=== PATIENT | male | born 1970 | race Caucasian/White ===

== ENCOUNTER 2016-05-18 20:29 | Emergency (ER) | payer BC ==
[2016-05-18 20:40] VITALS: BP 188/102; BMI 35.5
[2016-05-18] MEDS ORDERED: ZOFRAN INJ 4 MG VIAL IVP ONE (21:27)
[2016-05-18] MEDS ORDERED: TORADOL 30 MG VIAL IVP STA (21:27)
--- NOTE | 2016-05-18 21:32 | DR.GENAD ---
HPI - PCP Primary Care Physician: meenakshi - Complaint/Symptoms Chief Complaint Doctors Comments: Patient complains of diffuse abdominal pain, cramping and no recent bowel movement. States he is having the same thing he had four months ago when they sent him to [place]. States he was transferred to [place] and saw Dr. Stefano Guzman ([phone]) and he said if it happen againg to call him and he will have him transferred so he could do surgery. states the pain is dull and cramping with the pain 9 of 10. Chief Complaint:: blockage in stomach, vomiting, had very small bm this am pain in abdomen abdomen distended Self Treatment fo Chief Complaint: miralax this am - Nurses notes reviewed Nurses Notes Review: Yes - Source History Provided: Patient - Mode of Arrival Mode of Arrival: Ambulatory - Timing Onset of Chief Complaint: 05/17/16 Came on: Gradually - Duration Duration: Constant How lon Duration: Days - Location Location: diffuse abdominal pain; periumbilical pain - Severity Severity: Moderate - Modifying Factors Worsens:: nothing Improves:: nothing PMH - PMH Past Medical History: Yes Past Medical History: Hypertension Past Surgical History: Yes Surgical History: Abdominal Surgery, Appendectomy, Cholecystectomy, Ortho Surgery Past Surgical History Comment: sinus surgery, nerve block on back - Family History History of Family Medical Conditions: Yes Family Medical History: Cancer, [place], Hypertension - Social History Does patient currently use any type of tobacco product: No Have you used tobacco products in the last 12 months: No Type of Tobacco Use: None Does any household member use tobacco: No Alcohol Use: Rarely Do you use any recreational Drugs:: No Lives With: Alone Lives Where: Home - infectious screening In the last 2 months have you had wt loss of >10#?: NO Have you had fever, night sweats or hemotysis?: No Have you traveled outside the country in the last 6 months?: No Isolation: Standard ROS - Review of Systems Constitutional: No Symptoms Reported, Loss of Appetite Eyes: No Symptoms Reported. negative: See HPI, Eye Pain, Blurred Vision, Tearing, Discharge, Photophobia, Diplopia, Other ENTM: No Symptoms Reported. negative: See HPI, Ear Pain, Ear Discharge, Pulling on Ears, Hearing Loss, Nose Pain, Nose Discharge, Epistaxis, Nose Congestion, Mouth Pain, Mouth Swelling, Loose Teeth, Drooling, Throat Pain, Throat Swelling, Ear Foreign Body Respiratoy: No Symptoms Reported. negative: See HPI, Productive Cough, Non- Productive Cough, Moist Cough, Dry Cough, Hacking Cough, Barking Cough, Brassy Cough, Orthopnea, Short of Breath, Stridor, Wheezing, Hemoptysis, Other Cardiovascular: No Symptoms Reported. negative: See HPI, Chest Pain, Edema, Palpitations, Syncope, Cyanosis, Skin Mottling, Other Gastrointestinal/Abdominal: Abdominal Pain, Constipation, Nausea, Vomiting. negative: No Symptoms Reported, See HPI, Diarrhea, Food Intolerance, Other Genitourinary: No Symptoms Reported. negative: See HPI, Discharge, Dysuria, Frequency, Hematuria, Pain, Bleeding, Other Neurological: No Symptoms Reported. negative: See HPI, Anxiety, Depressed, Emotional Problems, Headache, Numbness, Paresthesia, Pre-existing Deficit, Seizure, Tingling, Tremors, Weakness, Dizziness, Problems Walking, Speech Problem, Other Musculoskeletal: No Symptoms Reported Integumentary: No Symptoms Reported Hematologic/Lymphatic: No Symptoms Reported. negative: See HPI, Anemia, Blood Clots, Easy Bleeding, Easy Bruising, Swollen Glands, Lymphadenopathy, Other Endocrine: No Symptoms Reported Psychiatric: No Symptoms Reported PE - Vital Signs Vitals: Temperature 97.7 F Pulse Rate 102 Respiratory Rate 24 Blood Pressure [Right Arm] 123/85 Blood Pressure [Left Arm] 157/85 Blood Pressure 188/102 O2 Sat by Pulse Oximetry 96 - General Limitations: No Limitations General Appearance: Alert, In Distress (moderate) - Head Head Exam: Normal Inspection, Atraumatic, Normocephalic - Eyes Eye exam: Normal Appearance, PERRL, EOMI. negative: Scleral Icterus, Conjunctival Injection, Nystagmus, Miosis, Mydrasis, Periorbital Swelling, Periorbital Tenderness, Other - ENT ENT Exam: Normal Exam, Normal Oropharynx, Normal External Ear Exam, Mucous Membranes Moist, TM's Normal Bilaterally External Ear Exam: Normal External Inspection TM/Canal Exam: Bilateral Normal Nose Exam: Normal Nose Exam Mouth Exam: Normal Inspection. negative: Drooling, Trismus, Lip Swelling, Tongue Elevation, Tongue Swelling, Laceration, Other Throat Exam: Normal Inspection. negative: Tonsillar Erythema, Tonsillomegaly, Tonsillar Exudate, R Peritonsillar Mass, L Peritonsillar Mass, Muffled Voice, Other - Neck Neck Exam: Normal Inspection, Full ROM, Trachea Midline. negative: Tenderness, Meningismus, Lymphadenopathy, Thyromegaly, Other - Chest Chest Inspection: Normal Inspection, Symmetric Chest Wall Rise. negative: Tenderness, Rash, Abscess, Other - Respiratory Respiratory Exam: Normal Lung Sounds Bilat. negative: Accessory Muscle Use, Chest Wall Tenderness, Prolonged Expiratory Phase, Respiratory Distress, Stridor , Other Respiratory Exam: Bilateral Clear to Auscultation - Cardiovascular Cardiovascular Exam: Regular Rate, Normal Rhythm, Normal Heart Sounds. negative : Bradycardia, Tachycardia, Irregular Rhythm, Systolic Murmur, Diastolic Murmur , Rubs, Gallop, Clicks, JVD, +S1, +S2, +S3, +S4, Other - Abdominal Exam Abdominal Exam: Normal Inspection, Normal Bowel Sounds, Soft, Distention, Tenderness, Guarding, Hyperactive Bowel Sounds. negative: Rebound, Rigidity, Dimnished Bowel Sounds, Hypoactive Bowel Sounds, Organomegaly, Trauma, Incision , Ascites, Mass, Bruit, Pulsatile Mass, Hernia, Other Abdominal Tenderness: RUQ, RLQ, Epigastrium, Suprapubic, Moderate - Extremities Extremities Exam: Normal Inspection, Full ROM, Normal Capillary Refill. negative: Tenderness, Edema, Joint Swelling, Calf Tenderness, Other - Back Back Exam: Normal Inspection, Full ROM. negative: Tenderness, (R) CVA Tenderness, (L) CVA Tenderness, Muscle Spasm, Paraspinal Tenderness, Vertebral Tenderness, Rashes, (R) Sciatic Notch Tenderness, (L) Sciatic Notch Tendern, (R ) Straight Leg Raise, (L) Straight Leg Raise, Other - Neurologic Neurological Exam: Alert, Oriented X3, CN II-XII Intact, Reflexes Normal. negative: Normal Gait (gait not tested) - Psychiatric Psychiatric Exam: Normal Affect, Normal Mood. negative: Depressed, Agitated, Anxious, Flat Affect, Manic, Homicidal Ideation, Suicidal Ideation, Other - Skin Skin Exam: Warm, Dry, Intact, Normal Color ROR - Labs Reviewed Laboratory Results Reviewed?: Yes (all labs and x-ray results reviewed and discussed with patient) Result Diagrams: 05/18/16 21:30 05/18/16 21:30 Laboratory: WBC 6.7 X10^3/uL (3.6-10.0) 05/18/16 21:30 RBC 5.17 X10^6/uL (4.7-6.0) 05/18/16 21:30 Hgb 15.4 g/dL (13.5-18.0) 05/18/16 21:30 Hct 43.7 % (42.0-54.0) 05/18/16 21:30 MCV 84.4 fL (80.0-100.0) 05/18/16 21:30 MCH 29.8 pg (27.0-34.0) 05/18/16 21: MCHC 35.3 g/dL (33.0-35.0) H 05/18/16 21:30 RDW 13.7 % (11.6-16.5) 05/18/16:30 Plt Count 211 X10^3/uL (150.0-450.0) 05/18/16 21:30 MPV 7.9 fL (7.4-11.0) 05/18/16 21: Neut % 68.0 % (42.0-75.0) 05/18/16 21: Lymph % 20.7 % (21.0-51.0) L 05/18/16 21:30 [place] % 8.4 % (0.0-13.0) 05/18/16 21:30 Eos % 2.4 % (0.9-2.9) 05/18/16 21:30 Baso % 0.5 % (0.2-1.0) 05/18/16 21:30 Neut # 4.5 x10^3/uL (2.2-4.8) 05/18/16 21:30 Lymph # 1.4 X10^3/uL (1.3-2.9) 05/18/16 21:30 [place] # 0.6 x10^3/uL (0.3-0.8) 05/18/16 21:30 Eos # 0.2 x10^3/uL (0.0-0.2) 05/18/16 21:30 Baso # 0.0 X10^3/uL (0.0-0.1) 05/18/16 21:30 Absolute Nucleated RBC 0.0 /100WBC 05/18/16 21:30 Sodium 145 mmol/L (136-145) 05/18/16 21:30 Corrected Sodium 145 mmol/L (136-145) 05/18/16 21:30 Potassium 3.6 mmol/L (3.5-5.1) 05/18/16 21:30 Chloride 108 mmol/L (98-107) H 05/18/16 21:30 Carbon Dioxide 28.6 mmol/L (21-32) 05/18/16 21:30 BUN 9 mg/dL (7-18) 05/18/16 21:30 Creatinine 1.00 mg/dL (0.70-1.30) 05/18/16 21:30 Est GFR (MDRD) Af Amer > 60 (>60) 05/18/16 21:30 Est GFR (MDRD) Non-Af > 60 (>60) 05/18/16 21:30 Glucose 115 mg/dL (65-99) H 05/18/16 21:30 Calcium 8.4 mg/dL (8.5-10.1) L 05/18/16 21:30 Corrected Calcium TNP 05/18/16 21:30 Total Bilirubin 0.60 mg/dL (0.2-1.0) 05/18/16 21:30 AST 20 Units/L (15-37) 05/18/16 21:30 ALT 33 Units/L (12-78) 05/18/16 21:30 Alkaline Phosphatase 83 Units/L (46-116) 05/18/16 21:30 Creatine Kinase 79 Units/L (39-308) 05/18/16 21:30 CK-MB (CK-2) < 1.0 ng/mL (0-4.0) 05/18/16 21:30 CK/CKMB % Calc 1.3 % (<4) 05/18/16 21:30 Troponin I < 0.02 ng/mL (0-1.5) 05/18/16 21:30 Total Protein 6.7 g/dL (6.4-8.2) 05/18/16 21:30 Albumin 3.8 g/dL (3.4-5.0) 05/18/16 21:30 Globulin 2.9 g/dL (2.5-4.5) 05/18/16 21:30 Albumin/Globulin Ratio 1.3 Ratio (1.1-2.1) 05/18/16 21:30 Amylase 27 Units/L (25-115) 05/18/16 21:30 Lipase 103 Units/L (73-393) 05/18/16 21:30 Specimen Type Clean catch urine 05/18/16 23:06 Urine Color Yellow (YELLOW) 05/18/16 23:06 Urine Appearance Clear (CLEAR) 05/18/16 23:06 Urine pH 6.0 (5.0 - 8.0) 05/18/16 23:06 Ur Specific [place] 1.020 (1.000-1.030) 05/18/16 23:06 Urine Protein 1+ (NEGATIVE) 05/18/16 23:06 Urine Glucose (UA) Negative (NEGATIVE) 05/18/16 23:06 Urine Ketones Negative (NEGATIVE) 05/18/16 23:06 Urine Occult Blood Negative (NEGATIVE) 05/18/16 23:06 Urine Nitrite Negative (NEGATIVE) 05/18/16 23:06 Urine Bilirubin Negative (NEGATIVE) 05/18/16 23:06 Urine Urobilinogen 2+ (NORMAL) 05/18/16 23:06 Ur Leukocyte Esterase Negative (NEGATIVE) 05/18/16 23:06 Urine RBC 0-3 /HPF (NEGATIVE) 05/18/16 23:06 Urine WBC 0-3 /HPF (NEGATIVE) 05/18/16 23:06 Ur Squamous Epith Cells Rare /HPF (NEGATIVE) 05/18/16 23:06 Amorphous Sediment Trace /HPF (NEGATIVE) 05/18/16 23:06 Urine Bacteria Negative /HPF (NEGATIVE) 05/18/16 23:06 Urine Mucus Few /HPF (NEGATIVE) 05/18/16 23:06 Ur Culture Indicated? No/not indicated 05/18/16 23:06 - XRAY XRAY Interpreted by: Radiologist (CT abdomen: No acute inflammatory process identified.) - Diagnosis Discharge Problem: Hyperglycemia, Constipation Abdominal pain Qualifiers: Abdominal location: generalized Qualified Code(s): R10.84 - Generalized abdominal pain Inguinal hernia Qualifiers: Laterality: unilateral - Discharge Plan Disposition: 01 HOME, SELF-CARE Condition: Stable - Follow ups/Referrals Follow ups/Referrals: TONY DEAL [Primary Care Provider] - 3 days - Instructions Instructions: Abdominal Pain, Adult, [id number], Inguinal Hernia, Adult, Constipation, Adult Additional Instructions: Patient informed of the CT scanner being broken for a while and the findings of his CT scan of his abdomen with no signs of bowel obstruction. Increased stool noted in the colon. Patient states he is taking MariLax and he has Dulculax that he will take when he gets home.
[2016-05-18] MEDS ORDERED: TORADOL 30 MG VIAL ONE (21:47)
[2016-05-18] MEDS ORDERED: NS 1000 ML 1,000 ML ONE (21:47)
[2016-05-18] MEDS ORDERED: ZOFRAN INJ 4 MG VIAL ONE (21:47)
[2016-05-18 21:56] LABS: BASOPHILS % (AUTO) 0.5 % (0.2-1.0); EOSINOPHILS # (AUTO) 0.2 x10^3/uL (0.0-0.2); EOSINOPHILS % (AUTO) 2.4 % (0.9-2.9); HEMATOCRIT 43.7 % (42.0-54.0); HEMOGLOBIN 15.4 g/dL (13.5-18.0); LYMPHOCYTES # (AUTO) 1.4 X10^3/uL (1.3-2.9); LYMPHOCYTES % (AUTO) 20.7 % (21.0-51.0); MEAN CORPUSCULAR HEMOGLOBIN 29.8 pg (27.0-34.0); MEAN CORPUSCULAR HGB CONC 35.3 g/dL (33.0-35.0); MEAN CORPUSCULAR VOLUME 84.4 fL (80.0-100.0); MEAN PLATELET VOLUME 7.9 fL (7.4-11.0); MONOCYTES # (AUTO) 0.6 x10^3/uL (0.3-0.8); MONOCYTES % (AUTO) 8.4 % (0.0-13.0); NEUTROPHILS # (AUTO) 4.5 x10^3/uL (2.2-4.8); PLATELET COUNT 211 X10^3/uL (150.0-450.0); RED BLOOD COUNT 5.17 X10^6/uL (4.7-6.0); RED CELL DISTRIBUTION WIDTH 13.7 % (11.6-16.5); WHITE BLOOD COUNT 6.7 X10^3/uL (3.6-10.0)
[2016-05-18 22:00] LABS: ALANINE AMINOTRANSFERASE 33 Units/L (12-78); ALBUMIN 3.8 g/dL (3.4-5.0); ALKALINE PHOSPHATASE 83 Units/L (46-116); AMYLASE 27 Units/L (25-115); ASPARTATE AMINO TRANSFERASE 20 Units/L (15-37); BLOOD UREA NITROGEN 9 mg/dL (7-18); CALCIUM 8.4 mg/dL (8.5-10.1); CARBON DIOXIDE 28.6 mmol/L (21-32); CHLORIDE 108 mmol/L (98-107); COR NA(FOR HYPERGLY) 145 mmol/L (136-145); GLUCOSE 115 mg/dL (65-99); LIPASE 103 Units/L (73-393); SODIUM 145 mmol/L (136-145); TOTAL PROTEIN 6.7 g/dL (6.4-8.2); eGFR BLACK RACES > 60 (>60); eGFR NON BLACK RACES > 60 (>60)
[2016-05-18] MEDS ORDERED: NS 1000 ML 1,000 ML IV SCH (22:00)
[2016-05-18 22:10] LABS: CKMB % 1.3 % (<4); CREATINE KINASE 79 Units/L (39-308); CREATINE KINASE MB < 1.0 ng/mL (0-4.0); TROPONIN I < 0.02 ng/mL (0-1.5)
[2016-05-18 23:30] LABS: BILIRUBIN,URINE NEGATIVE (NEGATIVE); BLOOD/HEMOGLOBIN,URINE NEGATIVE (NEGATIVE); GLUCOSE, URINE NEGATIVE (NEGATIVE); KETONES,URINE NEGATIVE (NEGATIVE); LEUKOCYTE ESTERASE ,URINE NEGATIVE (NEGATIVE); NITRITES,URINE NEGATIVE (NEGATIVE); PROTEIN,URINE 1+ (NEGATIVE); UROBILINOGEN,URINE 2+ (NORMAL)
[2016-05-18 23:42] LABS: AMORPHOUS SEDIMENT,UR TRACE /HPF (NEGATIVE); APPEARANCE,URINE CLEAR (CLEAR); BACTERIA,URINE NEGATIVE /HPF (NEGATIVE); COLOR,URINE YELLOW (YELLOW); MUCUS,URINE FEW /HPF (NEGATIVE); RBC,URINE 0-3 /HPF (NEGATIVE); SQUAMOUS EPITHELIAL CELL,UR RARE /HPF (NEGATIVE)
--- NOTE | 2016-05-18 23:58 | CT ---
CT abdomen and pelvis without contrast Indication: Abdominal pain with history of obstruction Comparison: 10/13/2015 Technique: Multiple axial images of the abdomen and pelvis were obtained from the lung bases to the pubic symph ysis without the administration of IV contrast. Radiation dose reduction techniques were performed utilizing adjustment for MA/kVP based on patient body size. Findings: The lung bases are clear. No focal hepatic lesion is identified. Prior cholecystectomy is noted. Arturo e ducts are normal in caliber. The spleen, pancreas and adrenal glands are normal. Neither kidney de monstrates evidence of nephrolithiasis, hydronephrosis or mass. Upper GI tract without evidence of m ass or obstruction. The urinary bladder is unremarkable. Prostate gland is normal. The rectum and co kristal are normal. Prior appendectomy is noted. No pelvic free fluid or adenopathy. Small fat containin g inguinal hernia is noted on the left. Abdominal aorta is normal in caliber. Review of bone windows demonstrates no acute osseous abnormality. Impression: No acute inflammatory process identified within the abdomen or pelvis given the limitati ons of a non contrast examination. Reported By:
[2016-05-19] MEDS ORDERED: REGLAN INJ 10 MG VIAL IVP STA (00:38)
[2016-05-19] MEDS ORDERED: REGLAN INJ 10 MG VIAL ONE (00:40)
== END 2016-05-19 01:05 | disposition home or self-care (01) ==
LOC: ER 20:29
DX: K59.09 Other constipation (principal); R10.84 Generalized abdominal pain; K40.90 Unilateral inguinal hernia, without obstruction or gangrene, not specified as recurrent; R73.9 Hyperglycemia, unspecified
CPT/HCPCS: 36415; 74176; 80053; 81001; 82150; 82550; 82553; 83690; 84484; 85025; 93005; 93010; 96365; 96367; 96374; 96375; 99283; 99284; A4216; A4222; J1885; J2405; J2765

== ENCOUNTER 2016-07-15 17:06 | Observation (INO) | payer BC ==
[2016-07-15] MEDS ORDERED: APRESOLINE INJ 20 MG VIAL IVP PRN (17:59)
[2016-07-15] MEDS ORDERED: MORPHINE SULFATE INJ 2 MG IVP PRN (18:03)
[2016-07-15] MEDS ORDERED: RESTORIL CAP 30 MG PO PRN (18:07)
--- NOTE | 2016-07-15 18:15 | DR.H&P ---
H&P - History & Physical for Day of: H&P Date: 07/15/16 - Chief Complaint Chief Complaint: severe BOYER all day - Allergies Allergies/Adverse Reactions: Allergies Allergy/AdvReac Type Severity Reaction Status Date / Time No Known Drug Allergy Allergy Verified 02/11/16 12:38 - History of Present Illness History of Present Illness: pt was a direct admit from Dr. Mcclendon's office after presenting with co severe BOYER. pt BP was 210/118 in the office. pt was given catapres 0.1 tab po and Toradol and Benadryl IM. after 45 mins pt continues with co boyer and BP 184/110. plan to admit for Hypertensive urgency, plan to obtain EKG, administer IV hydralazine, po catapres, resume home meds. - Past Medical History Past Medical History: Hypertension Additional Medical History: PARTIAL SMALL BOWEL OBSTRUCTION 4 MONTHS AGO WITH HOSPITALIZATION. - Past Surgical History Surgical History: Abdominal Surgery, Appendectomy, Cholecystectomy, Ortho Surgery Additional Surgical History: Lysis of adhesions for SBO. - Family History Family Medical History: Cancer, [place], Hypertension - Social History Does patient currently use any type of tobacco product: No Have you used tobacco products in the last 12 months: No Type of Tobacco Use: None Does any household member use tobacco: No Alcohol Use: None Drug Use: None - Review of Systems Constitutional: Malaise Eyes: No Symptoms Reported ENT: No Symptoms Reported Respiratory: No Symptoms Reported Cardiovascular: No Symptoms Reported Gastrointestinal: No Symptoms Reported Genitourinary: No Symptoms Reported Musculoskeletal: Back Pain, Leg Pain Skin: No Symptoms Reported Neurological: Other (headache) - Physical Exam Vital Signs: Temperature 97.8 F Pulse Rate [Right Brachial] 83 Respiratory Rate 20 Blood Pressure [Right Arm] 175/104 Blood Pressure [Left Arm] 157/85 Blood Pressure 188/102 O2 Sat by Pulse Oximetry 99 Oriented: Normal, Other Eyes: Normal Ear: Normal Nose: Normal Throat: Normal Respiratory: Clear Throughout Cardiovascular: Normal : Normal Auscultation: Bowel Sounds: Normal Palpation: Normal Tenderness: Normal Skin: Normal Musculoskeletal: Normal Psychiatric: Normal Mood Description: Calm Speech Pattern: Clear - Assessment/Plan (1) Hypertensive urgency, malignant Status: Acute Plan: admit, EKG, ADMISSION LABS CBC CMP MAG. BP MONITORING, HYDRALAZINE 10MG IV, CATAPRES 0.1 PO PRN BP >180/100. RESUME HOME MEDS. PAIN CONTROL FOR BOYER (2) GERD (gastroesophageal reflux disease) Qualifiers: Esophagitis presence: E Status: Chronic Plan: PPI (3) Lumbar and sacral spondyloarthritis Status: Chronic Plan: CONTINUE HOME MEDS
[2016-07-15 18:21] LABS: BASOPHILS % (AUTO) 0.4 % (0.2-1.0); EOSINOPHILS # (AUTO) 0.1 x10^3/uL (0.0-0.2); HEMATOCRIT 43.5 % (42.0-54.0); HEMOGLOBIN 15.2 g/dL (13.5-18.0); LYMPHOCYTES # (AUTO) 1.3 X10^3/uL (1.3-2.9); LYMPHOCYTES % (AUTO) 22.9 % (21.0-51.0); MEAN CORPUSCULAR VOLUME 85.8 fL (80.0-100.0); MEAN PLATELET VOLUME 7.8 fL (7.4-11.0); MONOCYTES # (AUTO) 0.5 x10^3/uL (0.3-0.8); MONOCYTES % (AUTO) 9.4 % (0.0-13.0); NEUTROPHILS # (AUTO) 3.6 x10^3/uL (2.2-4.8); NEUTROPHILS % (AUTO) 65.3 % (42.0-75.0); PLATELET COUNT 224 X10^3/uL (150.0-450.0); RED BLOOD COUNT 5.07 X10^6/uL (4.7-6.0); WHITE BLOOD COUNT 5.6 X10^3/uL (3.6-10.0)
[2016-07-15] MEDS: NS 1000 ML 1,000 ML IV SCH ×2 (18:24→22:03)
[2016-07-15 18:34] LABS: ALANINE AMINOTRANSFERASE 30 Units/L (12-78); ALBUMIN 3.8 g/dL (3.4-5.0); ALKALINE PHOSPHATASE 63 Units/L (46-116); ASPARTATE AMINO TRANSFERASE 17 Units/L (15-37); BLOOD UREA NITROGEN 11 mg/dL (7-18); CALCIUM 8.7 mg/dL (8.5-10.1); CARBON DIOXIDE 24.9 mmol/L (21-32); CHLORIDE 110 mmol/L (98-107); CREATININE 1.05 mg/dL (0.70-1.30); GLUCOSE 101 mg/dL (65-99); MAGNESIUM 2.1 mg/dL (1.7-2.9); SODIUM 145 mmol/L (136-145); TOTAL PROTEIN 6.7 g/dL (6.4-8.2); eGFR BLACK RACES > 60 (>60); eGFR NON BLACK RACES > 60 (>60)
[2016-07-15] MEDS: NORCO 10/325 TAB PO PRN (22:02)
[2016-07-16 04:36] LABS: BILIRUBIN,URINE NEGATIVE (NEGATIVE); BLOOD/HEMOGLOBIN,URINE NEGATIVE (NEGATIVE); GLUCOSE, URINE NEGATIVE (NEGATIVE); KETONES,URINE NEGATIVE (NEGATIVE); LEUKOCYTE ESTERASE ,URINE NEGATIVE (NEGATIVE); NITRITES,URINE NEGATIVE (NEGATIVE); PROTEIN,URINE NEGATIVE (NEGATIVE); UROBILINOGEN,URINE NORMAL (NORMAL)
[2016-07-16 04:56] LABS: APPEARANCE,URINE CLEAR (CLEAR); BACTERIA,URINE TRACE /HPF (NEGATIVE); COLOR,URINE YELLOW (YELLOW); RBC,URINE NONE SEEN /HPF (NEGATIVE); SQUAMOUS EPITHELIAL CELL,UR RARE /HPF (NEGATIVE)
[2016-07-16 04:57] LABS: MUCUS,URINE MANY /HPF (NEGATIVE)
[2016-07-16] MEDS ORDERED: COZAAR PO SCH (09:00)
[2016-07-16] MEDS ORDERED: LOPRESSOR TAB 50 MG PO SCH (09:00)
[2016-07-16] MEDS ORDERED: HYDROCHLOROTHIAZIDE 12.5 MG CAP PO SCH (09:00)
[2016-07-16] MEDS: NORCO 10/325 TAB PO PRN (09:13)
[2016-07-16] MEDS: NS 1000 ML 1,000 ML IV SCH (09:14)
[2016-07-16 10:31] VITALS: BMI 36.8
[2016-07-16 13:15] VITALS: BP 138/88
== END 2016-07-16 12:55 | disposition home or self-care (01) ==
LOC: MED/SURG 17:06
PROVIDERS: ADMIT Internal Medicine; ATTEND Internal Medicine
DX: I16.0 Hypertensive urgency (principal); R51 Headache; K21.9 Gastro-esophageal reflux disease without esophagitis; M47.897 Other spondylosis, lumbosacral region
CPT/HCPCS: 36415; 80053; 81001; 83735; 85025; 93005; 93010; A4222; G0378; J2270

== ENCOUNTER 2016-10-17 20:54 | Emergency (ER) | payer BC ==
[2016-10-17 21:12] VITALS: BMI 36.3
--- NOTE | 2016-10-17 21:18 | DR.GENAD ---
HPI - PCP Primary Care Physician: meenakshi - Complaint/Symptoms Chief Complaint:: fever, hurting all over, ears hurt, coughing, runny nose, congested, sore throat since friday Self Treatment fo Chief Complaint: seen waldo li got 2 shots on friday morning. patient taking pack which he got filled this morning. patient sates, " it says to take two the first day took two today then takes 1 daily for 4 days. " does not recall the name of the medicine. tylenol for fever 3 hours ago - Nurses notes reviewed Nurses Notes Review: Yes - Source History Provided: Patient - Mode of Arrival Mode of Arrival: Ambulatory - Timing Onset of Chief Complaint: 10/15/16 PMH - PMH Past Medical History: Yes Past Medical History: GERD, Hypertension Past Surgical History: Yes Surgical History: Abdominal Surgery, Appendectomy, Cholecystectomy, Ortho Surgery - Family History History of Family Medical Conditions: Yes Family Medical History: Cancer, [place], Hypertension - Social History Does patient currently use any type of tobacco product: No Have you used tobacco products in the last 12 months: No Type of Tobacco Use: None Does any household member use tobacco: No Alcohol Use: Rarely Do you use any recreational Drugs:: No Lives With: Alone Lives Where: Home - infectious screening In the last 2 months have you had wt loss of >10#?: NO Have you had fever, night sweats or hemotysis?: No Have you traveled outside the country in the last 6 months?: No Isolation: Standard PE - Vital Signs Vitals: Temperature 98.6 F Pulse Rate 104 Respiratory Rate 24 Blood Pressure [Right Arm] 137/89 Blood Pressure [Left Arm] 138/88 Blood Pressure 166/113 O2 Sat by Pulse Oximetry 95 ROR - Labs Reviewed Result Diagrams: 10/17/16 22:25 10/17/16 22:25 Laboratory: WBC 7.8 X10^3/uL (3.6-10.0) 10/17/16 22:25 RBC 4.99 X10^6/uL (4.7-6.0) 10/17/16 22:25 Hgb 15.0 g/dL (13.5-18.0) 10/17/16 22:25 Hct 42.3 % (42.0-54.0) 10/17/16 22:25 MCV 84.8 fL (80.0-100.0) 10/17/16 22:25 MCH 30.0 pg (27.0-34.0) 10/17/16 22: MCHC 35.4 g/dL (33.0-35.0) H 10/17/16 22:25 RDW 13.5 % (11.6-16.5) 10/17/16 22:25 Plt Count 198 X10^3/uL (150.0-450.0) 10/17/16 22:25 MPV 7.4 fL (7.4-11.0) 10/17/16 22:25 Neut % 75.2 % (42.0-75.0) H 10/17/16: Lymph % 12.6 % (21.0-51.0) L 10/17/16: [place] % 10.1 % (0.0-13.0) 10/17/16 22: Eos % 1.7 % (0.9-2.9) 10/17/16 22: Baso % 0.4 % (0.2-1.0) 10/17/16 22:25 Neut # 5.9 x10^3/uL (2.2-4.8) H 10/17/16 22:25 Lymph # 1.0 X10^3/uL (1.3-2.9) L 10/17/16 22:25 [place] # 0.8 x10^3/uL (0.3-0.8) 10/17/16 22:25 Eos # 0.1 x10^3/uL (0.0-0.2) 10/17/16 22:25 Baso # 0.0 X10^3/uL (0.0-0.1) 10/17/16 22:25 Absolute Nucleated RBC 0.1 /100WBC 10/17/16 22:25 Sodium 138 mmol/L (136-145) 10/17/16 22:25 Corrected Sodium TNP 10/17/16 22:25 Potassium 3.5 mmol/L (3.5-5.1) 10/17/16 22:25 Chloride 104 mmol/L (98-107) 10/17/16 22:25 Carbon Dioxide 28.4 mmol/L (21-32) 10/17/16 22:25 BUN 10 mg/dL (7-18) 10/17/16 22:25 Creatinine 1.04 mg/dL (0.70-1.30) 10/17/16 22:25 Est GFR (MDRD) Af Amer > 60 (>60) 10/17/16 22:25 Est GFR (MDRD) Non-Af > 60 (>60) 10/17/16 22:25 Glucose 110 mg/dL (65-99) H 10/17/16 22:25 Calcium 9.3 mg/dL (8.5-10.1) 10/17/16 22:25 Corrected Calcium TNP 10/17/16 22:25 Total Bilirubin 1.40 mg/dL (0.2-1.0) H 10/17/16 22:25 AST 33 Units/L (15-37) 10/17/16 22:25 ALT 60 Units/L (12-78) 10/17/16 22:25 Alkaline Phosphatase 72 Units/L (46-116) 10/17/16 22:25 Total Protein 6.8 g/dL (6.4-8.2) 10/17/16 22:25 Albumin 3.9 g/dL (3.4-5.0) 10/17/16 22:25 Globulin 2.9 g/dL (2.5-4.5) 10/17/16 22:25 Albumin/Globulin Ratio 1.3 Ratio (1.1-2.1) 10/17/16 22:25 Monoscreen Negative (NEGATIVE) 10/17/16 22:25 Streptococcus Screen Positive (NEGATIVE) A 10/17/16 22:17 - Diagnosis Discharge Problem: Bronchitis, Strep pharyngitis - Discharge Plan Condition: Stable Prescriptions: Acetaminophen with Codeine [Tylenol/Codeine #3 300-30 mg] 1 tab PO Q4-6H PRN # 15 tab PRN Reason: Pain Azithromycin [ZITHROMAX Tab 250 mg *] 1 dose PO DAILY #6 tab Benzonatate [TESSALON PERLES *] 200 mg PO TID PRN #30 cap PRN Reason: Cough - Follow ups/Referrals Follow ups/Referrals: TONY DEAL [Primary Care Provider] - 3 days - Instructions Instructions: Acute Bronchitis, [id number], Strep Throat, [id number] Additional Instructions: RETURN TO ED IF WORSE.
[2016-10-17] MEDS ORDERED: PHENERGAN W/CODEINE 6.25MG/10MG PO ONE (22:19)
[2016-10-17 22:32] LABS: BASOPHILS % (AUTO) 0.4 % (0.2-1.0); EOSINOPHILS # (AUTO) 0.1 x10^3/uL (0.0-0.2); EOSINOPHILS % (AUTO) 1.7 % (0.9-2.9); HEMATOCRIT 42.3 % (42.0-54.0); LYMPHOCYTES % (AUTO) 12.6 % (21.0-51.0); MEAN CORPUSCULAR HGB CONC 35.4 g/dL (33.0-35.0); MEAN CORPUSCULAR VOLUME 84.8 fL (80.0-100.0); MEAN PLATELET VOLUME 7.4 fL (7.4-11.0); MONOCYTES # (AUTO) 0.8 x10^3/uL (0.3-0.8); MONOCYTES % (AUTO) 10.1 % (0.0-13.0); NEUTROPHILS # (AUTO) 5.9 x10^3/uL (2.2-4.8); NEUTROPHILS % (AUTO) 75.2 % (42.0-75.0); PLATELET COUNT 198 X10^3/uL (150.0-450.0); RED BLOOD COUNT 4.99 X10^6/uL (4.7-6.0); RED CELL DISTRIBUTION WIDTH 13.5 % (11.6-16.5); WHITE BLOOD COUNT 7.8 X10^3/uL (3.6-10.0)
--- NOTE | 2016-10-17 22:36 | RAD ---
EXAM: Chest X-ray INDICATION: Chest pain COMPARISION: Prior exam from February 12, 2016 TECHNIQUE: Single view FINDINGS: The lungs are clear and the lung volumes are within normal limits. No pleural effusion or pneumothora x. The cardiac silhouette and mediastinum are normal. The regional skeleton is intact. IMPRESSION: No acute abnormality identified Reported By:
[2016-10-17] MEDS ORDERED: PHENERGAN W/CODEINE 6.25MG/10MG ONE ×2 (22:42→22:43)
[2016-10-17 22:45] LABS: ALANINE AMINOTRANSFERASE 60 Units/L (12-78); ALBUMIN 3.9 g/dL (3.4-5.0); ALKALINE PHOSPHATASE 72 Units/L (46-116); ASPARTATE AMINO TRANSFERASE 33 Units/L (15-37); BLOOD UREA NITROGEN 10 mg/dL (7-18); CALCIUM 9.3 mg/dL (8.5-10.1); CARBON DIOXIDE 28.4 mmol/L (21-32); CHLORIDE 104 mmol/L (98-107); CREATININE 1.04 mg/dL (0.70-1.30); SODIUM 138 mmol/L (136-145); TOTAL PROTEIN 6.8 g/dL (6.4-8.2); eGFR BLACK RACES > 60 (>60); eGFR NON BLACK RACES > 60 (>60)
[2016-10-17 22:48] LABS: MONOTEST NEGATIVE (NEGATIVE)
[2016-10-17] MEDS ORDERED: TORADOL 60 MG VIAL IM ONE (23:07)
[2016-10-17] MEDS ORDERED: BICILLIN L-A IM ONE ×2 (23:07→23:13)
[2016-10-17] MEDS ORDERED: TORADOL 60 MG VIAL ONE (23:12)
[2016-10-17] MEDS ORDERED: CATAPRES TAB 0.2 MG PO ONE (23:39)
[2016-10-17] MEDS ORDERED: CATAPRES TAB 0.2 MG ONE (23:40)
[2016-10-18 00:48] VITALS: BP 157/95
== END 2016-10-18 00:55 | disposition home or self-care (01) ==
LOC: ER 21:16
DX: J40 Bronchitis, not specified as acute or chronic (principal); J02.0 Streptococcal pharyngitis
CPT/HCPCS: 36415; 71010; 80053; 85025; 86308; 87880; 96372; 99282; 99283; J0570; J1885

== ENCOUNTER 2016-10-31 15:44 | Observation (INO) | payer BC ==
[2016-10-31] MEDS ORDERED: APRESOLINE INJ 20 MG VIAL IVP PRN (17:15)
[2016-10-31] MEDS ORDERED: NORCO 10/325 TAB PO PRN (17:16)
[2016-10-31 17:28] VITALS: BMI 35.2
[2016-10-31] MEDS ORDERED: AMBIEN PO PRN (17:29)
--- NOTE | 2016-10-31 17:33 | DR.H&P ---
H&P - History & Physical for Day of: H&P Date: 10/31/16 - Chief Complaint Chief Complaint: CHEST PAIN, SOB - Allergies Allergies/Adverse Reactions: Allergies Allergy/AdvReac Type Severity Reaction Status Date / Time MS No Known Drug Allergy Allergy Verified 02/11/16 12:38 [No Known Drug Allergy] - History of Present Illness History of Present Illness: 46 WM DIRECT ADMIT FROM DR ALEJO OFFICE WITH CO CHEST PAIN AND SOB. PT STATES CP HAS BEEN SUBSTERNAL TODAY, PT CO INTERMITTEN EPISODES OF CP, LAST ONE ON 10/21 SENT HIM TO ER IN [facility], PT STATES HE WAS TREATED FOR HTN AND SENT HOME. PT HAS PMH OF HTN HYPERLIPIDEMIA AND OA. PT HAS HX OF ABNORMAL STRESS TEST AND HEART CATH AT [facility] IN 2002. PLAN TO ADMIT FOR ICU STEP DOWN FOR CHEST PAIN WORK UP, R/O AMI SERIAL CE AND EKG;S. BP CONTROL AND CXR. - Past Medical History Past Medical History: GERD, Hypertension Additional Medical History: PARTIAL SMALL BOWEL OBSTRUCTION 4 MONTHS AGO WITH HOSPITALIZATION. - Past Surgical History Surgical History: Abdominal Surgery, Appendectomy, Cholecystectomy, Ortho Surgery Additional Surgical History: Lysis of adhesions for SBO. - Family History Family Medical History: Cancer, [place], Hypertension - Social History Does patient currently use any type of tobacco product: No Have you used tobacco products in the last 12 months: No Type of Tobacco Use: None Does any household member use tobacco: No Alcohol Use: None Drug Use: None - Review of Systems Constitutional: Weakness Eyes: No Symptoms Reported ENT: No Symptoms Reported Respiratory: Shortness of Breath, SOB with Excertion Cardiovascular: Chest Pain, Edema, Light Headedness Gastrointestinal: Nausea Genitourinary: No Symptoms Reported Musculoskeletal: Back Pain Skin: No Symptoms Reported Neurological: No Symptoms Reported - Physical Exam Vital Signs: Blood Pressure [Right Arm] 137/89 Blood Pressure [Left Arm] 157/95 Blood Pressure 157/95 Oriented: Normal Eyes: Normal Ear: Normal Nose: Normal Throat: Normal Respiratory: RLL Diminished, LLL Diminished Cardiovascular: Tachycardia, Edema Auscultation: Bowel Sounds: Normal Palpation: Normal Tenderness: Normal Skin: Diaphoresis Musculoskeletal: Back:Lumbar Psychiatric: Anxiety Mood Description: Anxious Speech Pattern: Clear - Assessment/Plan (1) Chest pain Status: Acute Plan: ADMIT, SERIAL CE AND EKG'S. RESP THERAPY, SUPPLEMENTAL O2. CARDIAC MONITORING, BP CONTROL WITH HYDRALAZINE IV. FLP Q AM, LASIX 40MG IV X 1 DOSES. STRICT I & OS (2) Shortness of breath Status: Acute (3) Hypertension Status: Acute (4) Hyperlipidemia Status: Acute (5) Edema Status: Acute
[2016-10-31] MEDS ORDERED: ZOFRAN INJ 4 MG VIAL IVP PRN (17:47)
[2016-10-31] MEDS ORDERED: MORPHINE SULFATE INJ 2 MG INJ IVP PRN (17:47)
[2016-10-31 17:51] LABS: BASOPHILS % (AUTO) 0.3 % (0.2-1.0); EOSINOPHILS # (AUTO) 0.2 x10^3/uL (0.0-0.2); EOSINOPHILS % (AUTO) 2.6 % (0.9-2.9); HEMATOCRIT 44.1 % (42.0-54.0); HEMOGLOBIN 15.7 g/dL (13.5-18.0); LYMPHOCYTES # (AUTO) 1.3 X10^3/uL (1.3-2.9); MEAN CORPUSCULAR HEMOGLOBIN 30.4 pg (27.0-34.0); MEAN CORPUSCULAR HGB CONC 35.7 g/dL (33.0-35.0); MEAN CORPUSCULAR VOLUME 85.3 fL (80.0-100.0); MEAN PLATELET VOLUME 7.8 fL (7.4-11.0); MONOCYTES # (AUTO) 0.4 x10^3/uL (0.3-0.8); NEUTROPHILS % (AUTO) 72.1 % (42.0-75.0); PLATELET COUNT 265 X10^3/uL (150.0-450.0); RED BLOOD COUNT 5.17 X10^6/uL (4.7-6.0); RED CELL DISTRIBUTION WIDTH 13.2 % (11.6-16.5); WHITE BLOOD COUNT 6.9 X10^3/uL (3.6-10.0)
[2016-10-31 17:56] LABS: ALANINE AMINOTRANSFERASE 67 Units/L (12-78); ALBUMIN 4.1 g/dL (3.4-5.0); ALKALINE PHOSPHATASE 84 Units/L (46-116); ASPARTATE AMINO TRANSFERASE 43 Units/L (15-37); BLOOD UREA NITROGEN 23 mg/dL (7-18); CARBON DIOXIDE 23.1 mmol/L (21-32); CHLORIDE 107 mmol/L (98-107); COR NA(FOR HYPERGLY) 141 mmol/L (136-145); CREATININE 1.01 mg/dL (0.70-1.30); MAGNESIUM 1.9 mg/dL (1.7-2.9); SODIUM 141 mmol/L (136-145); eGFR BLACK RACES > 60 (>60); eGFR NON BLACK RACES > 60 (>60)
[2016-10-31] MEDS ORDERED: ASPIRIN PO SCH (18:00)
[2016-10-31] MEDS ORDERED: LASIX IVP SCH ×2 (18:00→21:00)
[2016-10-31 18:08] LABS: CKMB % 0.6 % (<4); CREATINE KINASE 160 Units/L (39-308); CREATINE KINASE MB < 1.0 ng/mL (0-4.0); TROPONIN I < 0.02 ng/mL (0-1.5)
--- NOTE | 2016-10-31 18:34 | RAD ---
Chest, one view Indication: Chest pain, shortness of breath. Comparison: 10/17/2016 Findings: The heart size is normal. The lung apices are partially obscured by the patient's chin. The visualized lungs are clear without focal infiltrates, overt edema, or large pleural effusion. Impression: No acute chest process or significant change from prior. Reported By:
[2016-10-31 19:46] LABS: BILIRUBIN,URINE NEGATIVE (NEGATIVE); BLOOD/HEMOGLOBIN,URINE NEGATIVE (NEGATIVE); GLUCOSE, URINE NEGATIVE (NEGATIVE); KETONES,URINE 1+ (NEGATIVE); LEUKOCYTE ESTERASE ,URINE NEGATIVE (NEGATIVE); NITRITES,URINE NEGATIVE (NEGATIVE); PROTEIN,URINE NEGATIVE (NEGATIVE); UROBILINOGEN,URINE NORMAL (NORMAL)
[2016-10-31 19:54] LABS: APPEARANCE,URINE CLEAR (CLEAR); BACTERIA,URINE TRACE /HPF (NEGATIVE); COLOR,URINE YELLOW (YELLOW); RBC,URINE 0-2 /HPF (NEGATIVE); SQUAMOUS EPITHELIAL CELL,UR RARE /HPF (NEGATIVE)
[2016-10-31] MEDS ORDERED: LOPRESSOR TAB 50 MG PO SCH (21:00)
[2016-11-01 00:04] LABS: CKMB % 0.7 % (<4); CREATINE KINASE 135 Units/L (39-308); CREATINE KINASE MB < 1.0 ng/mL (0-4.0); TROPONIN I < 0.02 ng/mL (0-1.5)
[2016-11-01 05:41] LABS: CHOL/HDL RATIO 5.2 (0.0-5.0)
[2016-11-01 05:46] LABS: CREATINE KINASE 105 Units/L (39-308); CREATINE KINASE MB < 1.0 ng/mL (0-4.0); TROPONIN I < 0.02 ng/mL (0-1.5)
[2016-11-01 06:05] VITALS: BP 117/69
[2016-11-01 06:36] LABS: BASOPHILS % (AUTO) 0.6 % (0.2-1.0); EOSINOPHILS # (AUTO) 0.2 x10^3/uL (0.0-0.2); EOSINOPHILS % (AUTO) 3.6 % (0.9-2.9); HEMATOCRIT 43.5 % (42.0-54.0); HEMOGLOBIN 15.5 g/dL (13.5-18.0); LYMPHOCYTES # (AUTO) 1.5 X10^3/uL (1.3-2.9); LYMPHOCYTES % (AUTO) 24.4 % (21.0-51.0); MEAN CORPUSCULAR HEMOGLOBIN 30.2 pg (27.0-34.0); MEAN CORPUSCULAR HGB CONC 35.6 g/dL (33.0-35.0); MEAN CORPUSCULAR VOLUME 84.7 fL (80.0-100.0); MEAN PLATELET VOLUME 8.4 fL (7.4-11.0); MONOCYTES # (AUTO) 0.5 x10^3/uL (0.3-0.8); MONOCYTES % (AUTO) 8.3 % (0.0-13.0); NEUTROPHILS % (AUTO) 63.1 % (42.0-75.0); PLATELET COUNT 262 X10^3/uL (150.0-450.0); RED BLOOD COUNT 5.14 X10^6/uL (4.7-6.0); RED CELL DISTRIBUTION WIDTH 13.2 % (11.6-16.5); WHITE BLOOD COUNT 6.3 X10^3/uL (3.6-10.0)
[2016-11-01 06:47] LABS: ALANINE AMINOTRANSFERASE 64 Units/L (12-78); ALBUMIN 3.7 g/dL (3.4-5.0); ALKALINE PHOSPHATASE 65 Units/L (46-116); ASPARTATE AMINO TRANSFERASE 39 Units/L (15-37); BLOOD UREA NITROGEN 21 mg/dL (7-18); CARBON DIOXIDE 24.4 mmol/L (21-32); CHLORIDE 107 mmol/L (98-107); CREATININE 0.93 mg/dL (0.70-1.30); SODIUM 142 mmol/L (136-145); TOTAL PROTEIN 6.7 g/dL (6.4-8.2); eGFR BLACK RACES > 60 (>60); eGFR NON BLACK RACES > 60 (>60)
[2016-11-01] MEDS ORDERED: PROTONIX INJ 40 MG VIAL IVP SCH (09:00)
[2016-11-01] MEDS ORDERED: COZAAR PO SCH (09:00)
[2016-11-01] MEDS ORDERED: NORVASC TAB 10 MG PO SCH (09:00)
== END 2016-11-01 06:42 | disposition short-term general hospital (02) ==
LOC: ICU 15:44 → INTOOBSV 15:44
PROVIDERS: ADMIT Internal Medicine; ATTEND Internal Medicine
DX: R07.89 Other chest pain (principal); R06.02 Shortness of breath; I10 Essential (primary) hypertension; E78.2 Mixed hyperlipidemia; K21.9 Gastro-esophageal reflux disease without esophagitis; R60.0 Localized edema; R94.31 Abnormal electrocardiogram [ECG] [EKG]; Z79.899 Other long term (current) drug therapy
CPT/HCPCS: 36415; 71010; 80053; 80061; 81001; 82550; 82553; 83735; 84484; 85025; 85610; 85730; 93005; 93010; A4216; A4222; G0378; J1940

== ENCOUNTER 2018-03-24 15:53 | Observation (INO) ==
[2018-03-24] MEDS ORDERED: ASPIRIN 81 MG CHEWTAB ONE (16:03)
[2018-03-24] MEDS ORDERED: NITROSTAT SL ONE (16:03)
[2018-03-24] MEDS ORDERED: NITROSTAT SL PRN (16:18)
--- NOTE | 2018-03-24 16:26 | RAD ---
HISTORY: Chest pain Study: Single-view chest Comparison: 10/31/2016. Findings: Trachea is midline. Heart size is normal. There is aortic uncoiling. Increased interstitial markings are present bilaterally, over that of the prior study. Some of interstitial markings are linear. Many are nodular. Findings may represent interstitial lung disease such as interstitial pneumonia, other inflammation or occupational exposure. No consolidation, pleural fluid or pneumothorax is seen. Osseous structures are intact. IMPRESSION: Increased interstitial markings bilaterally as described above. High-resolution CT scanning of the chest may be of benefit. Reported By:
[2018-03-24] MEDS ORDERED: ZOFRAN INJ 4 MG VIAL ONE (16:28)
[2018-03-24] MEDS ORDERED: MORPHINE SULFATE INJ 4 MG ONE (16:29)
--- NOTE | 2018-03-24 16:29 | DR.CP ---
HPI Time Seen Time Seen by Provider: 03/24/18 16:19 PCP Primary Care Physician: NILESH SU Complaint Chief Complaint Doctor Comments: Patient presents with complaint of chest tightness and back pain since 0300 this AM. The pain is 10/10, unrelenting. Associated with diaphoresis. Patient reports that he has had 3-4 cardiac catherizations in the last 3-4 years w/o any etiology. He denies alcohol or cigarette use. Chief Complaint:: PT C/O CHEST PAINS THAT STARTED AT 0300 THIS AM AND THAT HE IS HAVING PAINS TO HIS BACK THAT ARE SHARP AND THAT PAINS TO HIS CHEST ARE SHARP PT STATES HIS PRIMARY MD > HIS BP MEDS ON 03/23/18 AND HE DOES NOT KNOW THE NAME , PT IS DIAPHORETIC,,BR NO DISTRESS NOTED ,BR Self Treatment fo Chief Complaint: ASA 81 TIMES 3 AT HOME Source History Provided: Patient Mode of Arrival Mode of Arrival: Ambulatory Timing Onset of Chief Complaint: 03/24/18 Location Chest Pain Radiation Location: None Associated Signs and Symptoms Associated Signs and Symptoms: Shortness of Breath PMH PMH Past Medical History: Yes Past Medical History: GERD and Hypertension Past Surgical History: Yes Surgical History: Unknown, Abdominal Surgery, Appendectomy, Cholecystectomy and Ortho Surgery Family History History of Family Medical Conditions: Yes Family Medical History: Cancer, [place] and Hypertension Social History Does patient currently use any type of tobacco product: No Have you used tobacco products in the last 12 months: No Type of Tobacco Use: None Does any household member use tobacco: No Alcohol Use: None Do you use any recreational Drugs:: No Lives With: Family Lives Where: Home infectious screening In the last 2 months have you had wt loss of >10#?: NO Have you had fever, night sweats or hemotysis?: No Have you traveled outside the country in the last 6 months?: No Isolation: Standard PE Vitals Vitals: Temperature 97.8 F Pulse Rate [Apical] 64 Pulse Rate 94 Respiratory Rate 20 Blood Pressure [Right Arm] 80/51 Blood Pressure [Left Arm] 88/52 Blood Pressure 182/88 O2 Sat by Pulse Oximetry 96 General Limitations: No Limitations and Language Barrier General Appearance: Alert and In No Apparent Distress Head Head Exam: Normal Inspection, Atraumatic and Normocephalic Eyes Eye exam: Normal Appearance, PERRL and EOMI ENT ENT Exam: Normal Exam and Normal Oropharynx Chest Chest Inspection: Normal Inspection and Symmetric Chest Wall Rise Respiratory Respiratory Exam: Normal Lung Sounds Bilat Respiratory Exam: Bilateral: Clear to Auscultation Cardiovascular Cardiovascular Exam: Regular Rate and Normal Rhythm Abdominal Exam Abdominal Exam: Normal Inspection, Normal Bowel Sounds and Soft Extremities Extremities Exam: Normal Inspection and Full ROM Back Back Exam: Normal Inspection and Full ROM Neurologic Neurological Exam: Alert, Oriented X3 and CN II-XII Intact Psychiatric Psychiatric Exam: Normal Affect and Normal Mood Skin Skin Exam: Warm, Dry, Intact and Normal Color COURSE Treatment Treatment: NTG, morphine Reevaluation 1st: Improved Consultation Called: 19:30 Consultation Comments: Dr. Robles agreed to admit for chest pain protocol ROR Labs Reviewed Laboratory Results Reviewed?: Yes Result Diagrams: 03/24/18 16:15 03/25/18 05:45 Laboratory: WBC 9.1 X10^3/uL (3.6-10.0) 03/24/18 16:15 RBC 5.31 X10^6/uL (4.7-6.0) 03/24/18 16:15 Hgb 16.4 g/dL (13.5-18.0) 03/24/18 16:15 Hct 46.4 % (42.0-54.0) 03/24/18 16:15 MCV 87.3 fL (80.0-100.0) 03/24/18 16:15 MCH 30.8 pg (27.0-34.0) 03/24/18 16:15 MCHC 35.3 g/dL (33.0-35.0) H 03/24/18 16:15 RDW 13.5 % (11.6-16.5) 03/24/18 16:15 Plt Count 283 X10^3/uL (150.0-450.0) 03/24/18 16:15 MPV 7.8 fL (7.4-11.0) 03/24/18 16:15 Neut % (Auto) 71.8 % (42.0-75.0) 03/24/18 16:15 Lymph % (Auto) 17.5 % (21.0-51.0) L 03/24/18 16:15 [place] % (Auto) 8.2 % (0.0-13.0) 03/24/18 16:15 Eos % (Auto) 2.0 % (0.9-2.9) 03/24/18 16:15 Baso % (Auto) 0.5 % (0.2-1.0) 03/24/18 16:15 Neut # (Auto) 6.6 x10^3/uL (2.2-4.8) H 03/24/18 16:15 Lymph # (Auto) 1.6 X10^3/uL (1.3-2.9) 03/24/18 16:15 [place] # (Auto) 0.8 x10^3/uL (0.3-0.8) 03/24/18 16:15 Eos # (Auto) 0.2 x10^3/uL (0.0-0.2) 03/24/18 16:15 Baso # (Auto) 0.0 X10^3/uL (0.0-0.1) 03/24/18 16:15 Absolute Nucleated RBC 0.2 /100WBC 03/24/18 16:15 INR Target Range - 03/24/18 16:15 INR 0.91 (0.8-1.3) 03/24/18 16:15 APTT 28.6 SECONDS (22.9-36.5) 03/24/18 16:15 PTT Comment - 03/24/18 16:15 D-Dimer 117 ng/mL (0-400) 03/24/18 16:15 Sodium 140 mmol/L (136-145) 03/25/18 05:45 Corrected Sodium TNP 03/25/18 05:45 Potassium 4.1 mmol/L (3.5-5.1) 03/25/18 05:45 Chloride 103 mmol/L (98-107) 03/25/18 05:45 Carbon Dioxide 29.6 mmol/L (21-32) 03/25/18 05:45 BUN 16 mg/dL (7-18) 03/25/18 05:45 Creatinine 1.25 mg/dL (0.70-1.30) 03/25/18 05:45 Est GFR (MDRD) Af Amer > 60 (>60) 03/25/18 05:45 Est GFR (MDRD) Non-Af > 60 (>60) 03/25/18 05:45 Glucose 107 mg/dL (65-99) H 03/25/18 05:45 Lactic Acid 1.8 mmol/L (0.4-2.0) 03/24/18 16:52 Calcium 9.0 mg/dL (8.5-10.1) 03/25/18 05:45 Corrected Calcium TNP 03/25/18 05:45 Magnesium 2.0 mg/dL (1.7-2.9) 03/24/18 16:15 Total Bilirubin 1.20 mg/dL (0.2-1.0) H 03/25/18 05:45 AST 27 Units/L (15-37) 03/25/18 05:45 ALT 44 Units/L (12-78) 03/25/18 05:45 Alkaline Phosphatase 69 Units/L (46-116) 03/25/18 05:45 Creatine Kinase 282 Units/L (39-308) 03/25/18 05:45 CK-MB (CK-2) < 1.0 ng/mL (0-4.0) 03/25/18 05:45 CK/CKMB % Calc 0.4 % (<4) 03/25/18 05:45 Troponin I < 0.02 ng/mL (0-1.5) 03/25/18 05:45 Total Protein 6.6 g/dL (6.4-8.2) 03/25/18 05:45 Albumin 3.7 g/dL (3.4-5.0) 03/25/18 05:45 Globulin 2.9 g/dL (2.5-4.5) 03/25/18 05:45 Albumin/Globulin Ratio 1.3 Ratio (1.1-2.1) 03/25/18 05:45 Triglycerides 142 mg/dL (0-150) 03/25/18 05:45 Cholesterol 190 mg/dL (0-200) 03/25/18 05:45 LDL Cholesterol, Calc 129 mg/dL (0-100) H 03/25/18 05:45 HDL Cholesterol 33 mg/dL (40-60) L 03/25/18 05:45 Cholesterol/HDL Ratio 5.8 (0.0-5.0) H 03/25/18 05:45 Amylase 27 Units/L (25-115) 03/24/18 16:15 Lipase 83 Units/L (73-393) 03/24/18 16:15 Specimen Type Clean catch urine 03/24/18 20:35 Urine Color Yellow (YELLOW) 03/24/18 20:35 Urine Appearance Clear (CLEAR) 03/24/18 20:35 Urine pH 5.0 (5.0 - 8.0) 03/24/18 20:35 Ur Specific [place] 1.025 (1.000-1.030) 03/24/18 20:35 Urine Protein Negative (NEGATIVE) 03/24/18 20:35 Urine Glucose (UA) Negative (NEGATIVE) 03/24/18 20:35 Urine Ketones Negative (NEGATIVE) 03/24/18 20:35 Urine Occult Blood Negative (NEGATIVE) 03/24/18 20: Urine Nitrite Negative (NEGATIVE) 03/24/18 20: Urine Bilirubin Negative (NEGATIVE) 03/24/18 20:35 Urine Urobilinogen Normal (NORMAL) 03/24/18 20:35 Ur Leukocyte Esterase Negative (NEGATIVE) 03/24/18 20:35 Other Results Comments: Chest: heart size is normal. There is aortic uncoiling. Increased interstitial markings are present bilaterally, over that of the prior study. Some of interstitial markings are linear. Many are nodular. Findings may represent interstitial lung disease such as interstitial pneumonia. Other inflammation or occupational exposure. No consolidation, pleural fluid or pneumothorax is seen. Osseous structures are intact. CT Chest w/o: The heart is normal in size without pericardial effusion. No focal areas of consolidation are identified in the lungs. No pleural effusion or pneumothorax is seen. Shotty appearing lymph nodes within the mediastinum without pathologic enlargement. Arteriovascular structures incompletely evaluated given lack of intravenous contrast but grossly normal. Upper abdomen without acute abnormalit y. No fracture,dislocation or abnormal lytic or blastic bone lesions are identified. Impression: No acute intrathoracic process. XRAY XRAY Interpreted by: Radiologist Diagnosis Discharge Problem: Chest pain
[2018-03-24 16:35] LABS: BASOPHILS % (AUTO) 0.5 % (0.2-1.0); EOSINOPHILS # (AUTO) 0.2 x10^3/uL (0.0-0.2); HEMATOCRIT 46.4 % (42.0-54.0); HEMOGLOBIN 16.4 g/dL (13.5-18.0); LYMPHOCYTES # (AUTO) 1.6 X10^3/uL (1.3-2.9); LYMPHOCYTES % (AUTO) 17.5 % (21.0-51.0); MEAN CORPUSCULAR HEMOGLOBIN 30.8 pg (27.0-34.0); MEAN CORPUSCULAR HGB CONC 35.3 g/dL (33.0-35.0); MEAN CORPUSCULAR VOLUME 87.3 fL (80.0-100.0); MEAN PLATELET VOLUME 7.8 fL (7.4-11.0); MONOCYTES # (AUTO) 0.8 x10^3/uL (0.3-0.8); MONOCYTES % (AUTO) 8.2 % (0.0-13.0); NEUTROPHILS # (AUTO) 6.6 x10^3/uL (2.2-4.8); NEUTROPHILS % (AUTO) 71.8 % (42.0-75.0); PLATELET COUNT 283 X10^3/uL (150.0-450.0); RED BLOOD COUNT 5.31 X10^6/uL (4.7-6.0); RED CELL DISTRIBUTION WIDTH 13.5 % (11.6-16.5); WHITE BLOOD COUNT 9.1 X10^3/uL (3.6-10.0)
[2018-03-24] MEDS ORDERED: ZOFRAN INJ 4 MG VIAL IVP ONE (16:37)
[2018-03-24] MEDS ORDERED: MORPHINE SULFATE INJ 4 MG IVP ONE (16:37)
[2018-03-24 16:48] LABS: CKMB % 0.5 % (<4); CREATINE KINASE 206 Units/L (39-308); TROPONIN I < 0.02 ng/mL (0-1.5)
[2018-03-24 16:53] LABS: AMYLASE 27 Units/L (25-115); LIPASE 83 Units/L (73-393)
[2018-03-24] MEDS ORDERED: NS 100 ML IV 100 ML IV ONE (16:56)
[2018-03-24] MEDS ORDERED: ATIVAN INJ 2 MG VIAL ONE (17:09)
[2018-03-24] MEDS ORDERED: ATIVAN INJ 2 MG VIAL IVP ONE ×2 (17:13→18:24)
[2018-03-24 17:14] LABS: BLOOD UREA NITROGEN 13 mg/dL (7-18); CALCIUM 9.6 mg/dL (8.5-10.1); CARBON DIOXIDE 22.4 mmol/L (21-32); CHLORIDE 100 mmol/L (98-107); COR NA(FOR HYPERGLY) 138 mmol/L (136-145); CREATININE 1.12 mg/dL (0.70-1.30); SODIUM 138 mmol/L (136-145); eGFR NON BLACK RACES > 60 (>60)
--- NOTE | 2018-03-24 19:06 | CT ---
CT CHEST WITHOUT IV CONTRAST CLINICAL HISTORY: 48-year-old male with chest pain. COMPARISON: Chest radiograph this date. TECHNIQUE: Contiguous axial CT images were obtained of the chest without contrast and reformatted in the sagittal and coronal planes. FINDINGS: Heart is normal in size without pericardial effusion. No focal areas of consolidation are identified in the lungs. No pleural effusion or pneumothorax is seen. Shotty appearing lymph nodes within the mediastinum without pathologic enlargement. Arteriovascular structures incompletely evaluated given lack of intravenous contrast but grossly normal. Upper abdomen without acute abnormality. No fracture, dislocation or abnormal lytic or blastic bone lesions are identified. IMPRESSION: No acute intrathoracic process. Reported By:
[2018-03-24] MEDS ORDERED: K-LYTE EFFERVESCENT PO ONE (19:18)
[2018-03-24] MEDS ORDERED: K-LYTE EFFERVESCENT ONE (19:19)
[2018-03-24 20:43] LABS: BILIRUBIN,URINE NEGATIVE (NEGATIVE); BLOOD/HEMOGLOBIN,URINE NEGATIVE (NEGATIVE); GLUCOSE, URINE NEGATIVE (NEGATIVE); KETONES,URINE NEGATIVE (NEGATIVE); LEUKOCYTE ESTERASE ,URINE NEGATIVE (NEGATIVE); NITRITES,URINE NEGATIVE (NEGATIVE); PROTEIN,URINE NEGATIVE (NEGATIVE); UROBILINOGEN,URINE NORMAL (NORMAL)
[2018-03-24 20:44] LABS: APPEARANCE,URINE CLEAR (CLEAR); COLOR,URINE YELLOW (YELLOW)
[2018-03-24 20:49] VITALS: BMI 37.5
[2018-03-24] MEDS: KLONOPIN TAB 0.5 MG PO SCH (21:09)
[2018-03-24] MEDS: LOPRESSOR TAB 25 MG PO SCH (21:09)
[2018-03-24] MEDS: CATAPRES TAB 0.1 MG PO SCH (21:09)
[2018-03-24 22:33] LABS: CKMB % 0.6 % (<4); CREATINE KINASE 173 Units/L (39-308); CREATINE KINASE MB 1.1 ng/mL (0-4.0); TROPONIN I < 0.02 ng/mL (0-1.5)
[2018-03-25 06:54] LABS: ALANINE AMINOTRANSFERASE 44 Units/L (12-78); ALBUMIN 3.7 g/dL (3.4-5.0); ALKALINE PHOSPHATASE 69 Units/L (46-116); ASPARTATE AMINO TRANSFERASE 27 Units/L (15-37); BLOOD UREA NITROGEN 16 mg/dL (7-18); CARBON DIOXIDE 29.6 mmol/L (21-32); CHLORIDE 103 mmol/L (98-107); CHOL/HDL RATIO 5.8 (0.0-5.0); CHOLESTEROL 190 mg/dL (0-200); CKMB % 0.4 % (<4); CREATINE KINASE 282 Units/L (39-308); CREATINE KINASE MB < 1.0 ng/mL (0-4.0); CREATININE 1.25 mg/dL (0.70-1.30); HDL CHOLESTEROL 33 mg/dL (40-60); SODIUM 140 mmol/L (136-145); TOTAL PROTEIN 6.6 g/dL (6.4-8.2); TRIGLYCERIDES 142 mg/dL (0-150); TROPONIN I < 0.02 ng/mL (0-1.5); eGFR NON BLACK RACES > 60 (>60)
[2018-03-25] MEDS ORDERED: ZANTAC PO SCH (09:00)
[2018-03-25] MEDS ORDERED: CHLORASEPTIC SPRAY MT PRN (09:51)
[2018-03-25] MEDS: ASPIRIN EC 81 MG PO SCH (10:04)
[2018-03-25] MEDS: LOPRESSOR TAB 25 MG PO SCH (10:05)
[2018-03-25] MEDS: COZAAR PO SCH (10:05)
[2018-03-25] MEDS: NORVASC TAB 10 MG PO SCH (10:05)
[2018-03-25] MEDS: HYDROCHLOROTHIAZIDE 25 MG TAB PO SCH (10:06)
--- NOTE | 2018-03-25 12:54 | US ---
Exam: Renal ultrasound History: 48-year-old male with hypertension. Comparison: None Findings: The right kidney measures 10.9 x 4.8 x 5.4 cm in size. No hydronephrosis, echogenic calculi, or renal mass is seen on the right. Renal cortical thickness measures 1.8 cm. The left kidney measures 11.5 x 6.4 x 5.5 cm in size. No hydronephrosis, echogenic calculi, or renal mass is seen on the left. Urinary bladder is sonographically unremarkable. Impression: Unremarkable renal ultrasound exam. Reported By:
[2018-03-25] MEDS ORDERED: NORCO 10/325 TAB PO PRN (13:26)
--- NOTE | 2018-03-25 14:23 | DR.H&P ---
H&P - History & Physical for Day of: H&P Date: 03/24/18 - Chief Complaint Chief Complaint: CHEST PAIN, SOB - History of Present Illness History of Present Illness: 48 WM ER ADMISSION WITH CO CHEST PAIN AND ELEVATED BLOOD PRESSURE. PT STATES HE WOKE UP WITH SEVERE CHEST TIGHTNESS. PT STATES HE HAS PMH OF HTN AND BP HAS BEEN ELEVATED, LOSARTAN WAS INCREASED TO 100MG DAILY THIS WEEK. PT HAS HEART CATH 10/27 AT [facility] IN [place]. PT HAS PMH OF HTN OA GERD. PT ADMITTED TO [facility] TO AMI - Past Medical History Past Medical History: Hypertension, GERD Additional Medical History: PARTIAL SMALL BOWEL OBSTRUCTION 4 MONTHS AGO WITH HOSPITALIZATION. - Past Surgical History Surgical History: Abdominal Surgery, Appendectomy, Cholecystectomy, Ortho Surgery, Unknown Additional Surgical History: Lysis of adhesions for SBO. - Family History Family Medical History: Cancer, [place], Hypertension - Social History Does patient currently use any type of tobacco product: No Have you used tobacco products in the last 12 months: No Type of Tobacco Use: None Does any household member use tobacco: No Alcohol Use: None Drug Use: None - Medications Home Medications: No Known Drug Allergies [NKDA] Allergy (Verified 03/24/18 16:03) CONTINUE taking the following medications amlodipine 5 mg PO DAILY 03/24/18 [History] amlodipine [Norvasc] 10 mg PO DAILY 03/24/18 [History] aspirin [Aspirin Low Dose] 81 mg PO DAILY 03/24/18 [History] clonazepam [Klonopin] 0.5 mg PO HS 03/24/18 [History] clonidine HCl 0.1 mg PO HS 03/24/18 [History] hydrochlorothiazide 25 mg PO DAILY 03/24/18 [History] losartan 100 mg PO DAILY 03/24/18 [History] metoprolol tartrate 25 mg PO BID 03/24/18 [History] ranitidine HCl 300 mg PO DAILY 03/24/18 [History] - Review of Systems Constitutional: Weakness Eyes: No Symptoms Reported Respiratory: No Symptoms Reported Cardiovascular: Chest Pain Gastrointestinal: Nausea Genitourinary: No Symptoms Reported Musculoskeletal: Back Pain Skin: No Symptoms Reported Neurological: Weakness - Physical Exam Vital Signs: Temperature 98.2 F Pulse Rate [Left Brachial] 76 Pulse Rate [Apical] 64 Pulse Rate 94 Respiratory Rate 18 Blood Pressure [Right Arm] 80/51 Blood Pressure [Left Arm] 124/81 Blood Pressure 182/88 O2 Sat by Pulse Oximetry 97 Oriented: Normal Eyes: Normal Ear: Normal Nose: Normal Throat: Normal Respiratory: Clear Throughout Cardiovascular: Normal : Normal Auscultation: Bowel Sounds: Normal Palpation: Normal Tenderness: Normal Skin: Normal Musculoskeletal: Back:Lumbar Psychiatric: Normal Mood Description: Calm Speech Pattern: Clear, Appropriate - Assessment/Plan (1) Chest pain Status: Acute Plan: ADMIT, SERIAL CE AND EKG. CXR ON ADMISSION, CT CHEST IN ER. RENAL US, REPEAT AM LABS. BP CONTROL, PAIN CONTROL. DISCUSSED NEED FOR CARDIAC EVALUATION (2) Hypertensive urgency, malignant Status: Acute Plan: RENAL US, BP CONTROL (3) GERD (gastroesophageal reflux disease) Status: Chronic (4) Lumbar and sacral spondyloarthritis Status: Chronic (5) Hyperlipidemia Status: Chronic - Allergies Allergies/Adverse Reactions: Allergies Allergy/AdvReac Type Severity Reaction Status Date / Time No Known Drug Allergies Allergy Verified 03/24/18 16:03 [NKDA]
[2018-03-25] MEDS ORDERED: MAALOX or MYLANTA PO PRN (15:54)
[2018-03-25 16:40] LABS: CKMB % 0.2 % (<4); CREATINE KINASE 656 Units/L (39-308); CREATINE KINASE MB < 1.0 ng/mL (0-4.0); TROPONIN I < 0.02 ng/mL (0-1.5)
[2018-03-25] MEDS: PROTONIX INJ 40 MG VIAL IVP SCH ×2 (16:45→21:09)
[2018-03-26] MEDS: KLONOPIN TAB 0.5 MG PO SCH (01:15)
[2018-03-26] MEDS: LOPRESSOR TAB 25 MG PO SCH ×2 (01:15→09:17)
[2018-03-26] MEDS: CATAPRES TAB 0.1 MG PO SCH (01:15)
[2018-03-26 06:32] LABS: BASOPHILS % (AUTO) 0.4 % (0.2-1.0); EOSINOPHILS # (AUTO) 0.2 x10^3/uL (0.0-0.2); EOSINOPHILS % (AUTO) 4.9 % (0.9-2.9); HEMATOCRIT 41.5 % (42.0-54.0); HEMOGLOBIN 14.7 g/dL (13.5-18.0); LYMPHOCYTES # (AUTO) 1.3 X10^3/uL (1.3-2.9); LYMPHOCYTES % (AUTO) 25.5 % (21.0-51.0); MEAN CORPUSCULAR HEMOGLOBIN 30.7 pg (27.0-34.0); MEAN CORPUSCULAR HGB CONC 35.5 g/dL (33.0-35.0); MEAN CORPUSCULAR VOLUME 86.5 fL (80.0-100.0); MEAN PLATELET VOLUME 8.3 fL (7.4-11.0); MONOCYTES # (AUTO) 0.6 x10^3/uL (0.3-0.8); MONOCYTES % (AUTO) 12.3 % (0.0-13.0); NEUTROPHILS # (AUTO) 2.8 x10^3/uL (2.2-4.8); NEUTROPHILS % (AUTO) 56.9 % (42.0-75.0); PLATELET COUNT 205 X10^3/uL (150.0-450.0); RED CELL DISTRIBUTION WIDTH 13.4 % (11.6-16.5)
[2018-03-26 07:27] LABS: ALANINE AMINOTRANSFERASE 41 Units/L (12-78); ALBUMIN 3.5 g/dL (3.4-5.0); ALKALINE PHOSPHATASE 76 Units/L (46-116); ASPARTATE AMINO TRANSFERASE 27 Units/L (15-37); BLOOD UREA NITROGEN 17 mg/dL (7-18); CALCIUM 8.8 mg/dL (8.5-10.1); CARBON DIOXIDE 25.2 mmol/L (21-32); CHLORIDE 104 mmol/L (98-107); CREATININE 1.05 mg/dL (0.70-1.30); SODIUM 139 mmol/L (136-145); TOTAL PROTEIN 6.4 g/dL (6.4-8.2); eGFR NON BLACK RACES > 60 (>60)
[2018-03-26] MEDS ORDERED: MILK OF MAGNESIA PO SCH (09:00)
[2018-03-26] MEDS: NORVASC TAB 10 MG PO SCH (09:17)
[2018-03-26] MEDS: HYDROCHLOROTHIAZIDE 25 MG TAB PO SCH (09:17)
[2018-03-26] MEDS: COZAAR PO SCH (09:17)
[2018-03-26] MEDS: ASPIRIN EC 81 MG PO SCH (09:17)
[2018-03-26] MEDS: PROTONIX INJ 40 MG VIAL IVP SCH (09:18)
[2018-03-26] MEDS ORDERED: ZITHROMAX INJ 500 MG VIAL 500 MG in NS 250 ML IV 250 ML IV SCH (10:44)
[2018-03-26] MEDS ORDERED: NS 100 ML IV 100 ML IV ONE (10:52)
[2018-03-26] MEDS ORDERED: TUSSIONEX PENNKINETIC SUSP PO SCH (11:00)
--- NOTE | 2018-03-26 11:41 | CT ---
CTA chest with contrast per pulmonary embolism protocol Indication: Chest pain Comparison: 03/24/2018 Technique: Multiple axial images of the chest were obtained from the thoracic inlet to the upper abdomen after the administration of IV contrast.Coronal and Sagittal MIP images were also provided. Findings: No central or segmental pulmonary arterial filling defect is identified. There is normal caliber of the pulmonary artery without CT evidence or right heart strain. Thyroid gland is normal. Heart size is normal without pericardial effusion. Thoracic aorta is mildly aneurysmal measuring 4.5 by 4.4 cm on axial image 41. The aortic arch and descending thoracic aorta are normal in caliber. No significant calcified atherosclerotic disease of the coronary arteries. Small amount of fluid is noted within the pericardial recess. There are shotty, nonenlarged prevascular, AP window and paratracheal lymph nodes. Additionally there are shotty, nonenlarged right hilar lymph nodes. No focal airspace consolidation, nodule or mass. No pleural effusion or pneumothorax. Central airways are clear. Imaging of the upper abdomen demonstrates previous cholecystectomy. Review of bone windows demonstrates no acute osseous abnormality. windows demonstrates no acute osseous abnormality. IMPRESSION: 1. No PTE or acute cardiopulmonary abnormality.. 2. Mild aneurysmal dilatation of the ascending thoracic aorta measuring 4.5 x 4.4 cm. Annual follow-up is recommended. Reported By:
[2018-03-26] MEDS ORDERED: SOLU-Medrol 40 MG VIAL IVP ONE (12:00)
[2018-03-26 13:09] VITALS: BP 114/71
[2018-03-26] MEDS ORDERED: COLACE CAP 100 MG PO SCH (21:00)
== END 2018-03-26 16:10 | disposition home or self-care (01) ==
LOC: MED/SURG 15:54 → ER 15:54 → MED/SURG 20:09
PROVIDERS: ADMIT Internal Medicine; ATTEND Internal Medicine
DX: M54.89 Other dorsalgia; Z79.01 Long term (current) use of anticoagulants; R06.02 Shortness of breath; I16.0 Hypertensive urgency; K21.9 Gastro-esophageal reflux disease without esophagitis; I10 Essential (primary) hypertension; Z79.899 Other long term (current) drug therapy; R94.31 Abnormal electrocardiogram [ECG] [EKG]; M46.87 Other specified inflammatory spondylopathies, lumbosacral region; R07.89 Other chest pain; M46.86 Other specified inflammatory spondylopathies, lumbar region; E78.2 Mixed hyperlipidemia
CPT/HCPCS: 36415; 71010; 71045; 71250; 71275; 76770; 80048; 80053; 80061; 81003; 82150; 82550; 82553; 83605; 83690; 83735; 84132; 84484; 85025; 85378; 85610; 85730; 87502; 93005; 94760; 96365; 96374; 96375; 99284; A4216; A4222; C9113; G0378; J0456; J2060; J2270; J2405; J2920; J7050; J8499

== ENCOUNTER 2018-05-24 14:40 | Inpatient (IN) ==
[~2018-05-24 14:40] MED LIST: FLEXERIL TAB 10 MG ONE; MOTRIN TAB 800 MG PO ONE; PREDNISONE TAB 20 MG PO ONE
[2018-05-24 14:53] VITALS: BMI 38.7
--- NOTE | 2018-05-24 15:49 | DR.ABDMALE ---
HPI Time seen Time Seen by Provider: 05/24/18 15:49 PCP Primary Care Physician: SAY HPI comment HPI Comment: PATIENT IS 48YR OLD WHITE MALE IN ED WITH ABDOMINAL PAIN AND DISTENSION. PAIN IS LIKE KNIFE GOING THROUGH HIM. PAIN IS DIFFUSE 10/10 AND NON RADIATING. HE HAD NAUSEA AND VOMITING SINCE LAST NIGHT. SMALL BM YESTERDAY MORNING. NO FEVER AND PAIN WORSE TODAY. Complaint Chief Complaint Doctors Comments: DIFFUSE ABDOMINAL PAIN WITH INCREASING DISTENSION SINCE LAST NIGHT. Chief Complaint:: PT C/O ABD PAIN THAT STARTED LAST NIGHT , AND IT IS SHARP AND SOMETIMES FEELS LIKE A KNIFE IS IN IT , PT C/O N/V LAST NIGHT, PT ABD IS SWOLLEN , Reviewed Nurses Notes Review: Yes Mode of arrival Mode of Arrival: Ambulatory Timing Onset of Chief Complaint: 05/23/18 Came on: Suddenly Duration Duration: Constant Duration: Hours Location Location: Diffuse Severity Severity: Severe Quality Quality: Sharp (LIKE KNIFE CUTTING THRUGH HIM.) and Generalized Context Onset: Suddenly History of: Abdominal surgery and Bowel obstruction Modifying factors Worsening Factors: Food Improving Factors: Nothing Associated signs and symptoms Associated Signs and Symptoms: Nausea and Vomiting Other history Other History: HISTORY ABDOMINAL SURGERY AND ADHESION. PMH PMH Past Medical History: Yes Past Medical History: GERD and Hypertension Past Surgical History: Yes Surgical History: Abdominal Surgery, Appendectomy, Cholecystectomy and Ortho Surgery Past Surgical History Comment: KNEE, Family History History of Family Medical Conditions: Yes Family Medical History: Cancer, [place] and Hypertension Social History Does patient currently use any type of tobacco product: No Have you used tobacco products in the last 12 months: No Type of Tobacco Use: None Does any household member use tobacco: No Alcohol Use: None Do you use any recreational Drugs:: No Lives With: Family Lives Where: Home infectious screening In the last 2 months have you had wt loss of >10#?: NO Have you had fever, night sweats or hemotysis?: No Have you traveled outside the country in the last 6 months?: No Isolation: Standard ROS Review of Systems Constitutional: No Symptoms Reported Eyes: No Symptoms Reported ENTM: No Symptoms Reported Respiratoy: No Symptoms Reported Cardiovascular: No Symptoms Reported Gastrointestinal/Abdominal: Abdominal Pain, Nausea and Vomiting Genitourinary: No Symptoms Reported Neurological: No Symptoms Reported Musculoskeletal: No Symptoms Reported Integumentary: No Symptoms Reported Hematologic/Lymphatic: No Symptoms Reported Endocrine: No Symptoms Reported Psychiatric: No Symptoms Reported All Other Systems: Reviewed and Negative PE Vital Signs Vital Signs: Temp Pulse Pulse Resp BP BP BP 05/24/18 20:00 80 125/76 05/24/18 19:38 80 125/72 05/24/18 18:20 18 05/24/18 17:50 20 05/24/18 14:49 97.7 F 105 H 22 142/97 05/20/18 22:32 133/83 133/83 03/26/18 12:00 114/71 Pulse Ox 05/24/18 20:00 97 05/24/18 19:38 94 L 05/24/18 18:20 05/24/18 17:50 05/24/18 14:49 99 05/20/18 22:32 03/26/18 12:00 General Limitations: No Limitations General Appearance: Alert and In No Apparent Distress Head Head Exam: Normal Inspection and Atraumatic Eyes Eye exam: Normal Appearance and PERRL ENT ENT Exam: Normal External Ear Exam Neck Neck Exam: Normal Inspection and Trachea Midline Chest Chest Inspection: Normal Inspection and Symmetric Chest Wall Rise Respiratory Respiratory Exam: Normal Lung Sounds Bilat Respiratory Exam: Bilateral: Clear to Auscultation Cardiovascular Cardiovascular Exam: Regular Rate and Normal Rhythm Abdominal Exam Abdominal Exam: Distention, Tenderness, Guarding and Dimnished Bowel Sounds Abdominal Tenderness: Diffuse Rectal Rectal Exam: Deferred Back Back Exam: Normal Inspection Extremeties Extremities Exam: Normal Inspection Exam: Male: Deferred Neurologic Neurological Exam: Alert and Oriented X3; negative Motor Sensory Deficit Psychiatric Psychiatric Exam: Normal Affect and Normal Mood Skin Skin Exam: Warm, Dry, Intact and Normal Color MDM Additional Information Obtained From Additional information provided by: Family Differential Diagnosis Differential Diagnosis: Bowel Obstruction, Constipation, Diverticular disease, Gastritus/PUD, Ischemic Bowel, Urinary tract infection and Urolithiasis COURSE Treatment Treatment: IV ZOFRAN, PEPCID AND MORPHIN. PAIN IMPROVING. NORMAL SALINE WITH POTASSIUM IV IN ED. ROR Labs Reviewed Result Diagrams: 05/24/18 16:05 05/24/18 16:05 Laboratory: WBC 9.0 X10^3/uL (3.6-10.0) 05/24/18 16:05 RBC 4.85 X10^6/uL (4.7-6.0) 05/24/18 16:05 Hgb 15.1 g/dL (13.5-18.0) 05/24/18 16:05 Hct 42.4 % (42.0-54.0) 05/24/18 16:05 MCV 87.5 fL (80.0-100.0) 05/24/18 16:05 MCH 31.1 pg (27.0-34.0) 05/24/18 16:05 MCHC 35.6 g/dL (33.0-35.0) H 05/24/18 16:05 RDW 13.0 % (11.6-16.5) 05/24/18 16:05 Plt Count 250 X10^3/uL (150.0-450.0) 05/24/18 16:05 MPV 7.7 fL (7.4-11.0) 05/24/18 16:05 Neut % (Auto) 78.5 % (42.0-75.0) H 05/24/18 16:05 Lymph % (Auto) 12.7 % (21.0-51.0) L 05/24/18 16:05 [place] % (Auto) 7.8 % (0.0-13.0) 05/24/18 16:05 Eos % (Auto) 0.9 % (0.9-2.9) 05/24/18 16:05 Baso % (Auto) 0.1 % (0.2-1.0) L 05/24/18 16:05 Neut # (Auto) 7.1 x10^3/uL (2.2-4.8) H 05/24/18 16:05 Lymph # (Auto) 1.1 X10^3/uL (1.3-2.9) L 05/24/18 16:05 [place] # (Auto) 0.7 x10^3/uL (0.3-0.8) 05/24/18 16:05 Eos # (Auto) 0.1 x10^3/uL (0.0-0.2) 05/24/18 16:05 Baso # (Auto) 0.0 X10^3/uL (0.0-0.1) 05/24/18 16:05 Absolute Nucleated RBC 0.0 /100WBC 05/24/18 16:05 Sodium 141 mmol/L (136-145) 05/24/18 16:05 Corrected Sodium TNP 05/24/18 16:05 Potassium 3.0 mmol/L (3.5-5.1) L* 05/24/18 16:05 Chloride 104 mmol/L (98-107) 05/24/18 16:05 Carbon Dioxide 25.5 mmol/L (21-32) 05/24/18 16:05 BUN 14 mg/dL (7-18) 05/24/18 16:05 Creatinine 1.01 mg/dL (0.70-1.30) 05/24/18 16:05 Est GFR (MDRD) Af Amer > 60 (>60) 05/24/18 16:05 Est GFR (MDRD) Non-Af > 60 (>60) 05/24/18 16:05 Glucose 106 mg/dL (65-99) H 05/24/18 16:05 Calcium 8.7 mg/dL (8.5-10.1) 05/24/18 16:05 Corrected Calcium TNP 05/24/18 16:05 Total Bilirubin 1.40 mg/dL (0.2-1.0) H 05/24/18 16:05 AST 17 Units/L (15-37) 05/24/18 16:05 ALT 31 Units/L (12-78) 05/24/18 16:05 Alkaline Phosphatase 71 Units/L (46-116) 05/24/18 16:05 Total Protein 6.8 g/dL (6.4-8.2) 05/24/18 16:05 Albumin 3.8 g/dL (3.4-5.0) 05/24/18 16:05 Globulin 3.0 g/dL (2.5-4.5) 05/24/18 16:05 Albumin/Globulin Ratio 1.3 Ratio (1.1-2.1) 05/24/18 16:05 Amylase 18 Units/L (25-115) L 05/24/18 16:05 Lipase 61 Units/L (73-393) L 05/24/18 16:05 Specimen Type Clean catch urine 05/24/18 16:25 Urine Color Yellow (YELLOW) 05/24/18 16:25 Urine Appearance Slightly hazy (CLEAR) 05/24/18 16:25 Urine pH 6.0 (5.0 - 8.0) 05/24/18 16:25 Ur Specific [place] 1.020 (1.000-1.030) 05/24/18 16:25 Urine Protein 1+ (NEGATIVE) 05/24/18 16:25 Urine Glucose (UA) Negative (NEGATIVE) 05/24/18 16:25 Urine Ketones Negative (NEGATIVE) 05/24/18 16:25 Urine Occult Blood Negative (NEGATIVE) 05/24/18 16:25 Urine Nitrite Negative (NEGATIVE) 05/24/18 16:25 Urine Bilirubin Negative (NEGATIVE) 05/24/18 16:25 Urine Urobilinogen 2+ (NORMAL) 05/24/18 16:25 Ur Leukocyte Esterase 1+ (NEGATIVE) 05/24/18 16:25 Urine RBC 0-2 /HPF (NONE SEEN) 05/24/18 16:25 Urine WBC 0-2 /HPF (NONE SEEN) 05/24/18 16:25 Ur Squamous Epith Cells Rare /HPF (NEGATIVE) 05/24/18 16:25 Urine Bacteria Trace /HPF (NEGATIVE) 05/24/18 16:25 Urine Mucus Few /HPF (NEGATIVE) 05/24/18 16:25 Ur Culture Indicated? No/not indicated 05/24/18 16:25
[2018-05-24] MEDS ORDERED: PEPCID 20 MG IV PREMIX* 20 MG/50 ML BAG IV ONE (15:53)
[2018-05-24] MEDS ORDERED: ZOFRAN INJ 4 MG VIAL IVP ONE (15:53)
[2018-05-24] MEDS ORDERED: ZOFRAN INJ 4 MG VIAL ONE ×2 (15:57→20:52)
[2018-05-24] MEDS ORDERED: PEPCID 20 MG IV PREMIX* 20 MG/50 ML BAG ONE (15:57)
[2018-05-24 16:17] LABS: BASOPHILS % (AUTO) 0.1 % (0.2-1.0); EOSINOPHILS # (AUTO) 0.1 x10^3/uL (0.0-0.2); EOSINOPHILS % (AUTO) 0.9 % (0.9-2.9); HEMATOCRIT 42.4 % (42.0-54.0); HEMOGLOBIN 15.1 g/dL (13.5-18.0); LYMPHOCYTES # (AUTO) 1.1 X10^3/uL (1.3-2.9); LYMPHOCYTES % (AUTO) 12.7 % (21.0-51.0); MEAN CORPUSCULAR HEMOGLOBIN 31.1 pg (27.0-34.0); MEAN CORPUSCULAR HGB CONC 35.6 g/dL (33.0-35.0); MEAN CORPUSCULAR VOLUME 87.5 fL (80.0-100.0); MEAN PLATELET VOLUME 7.7 fL (7.4-11.0); MONOCYTES # (AUTO) 0.7 x10^3/uL (0.3-0.8); MONOCYTES % (AUTO) 7.8 % (0.0-13.0); NEUTROPHILS # (AUTO) 7.1 x10^3/uL (2.2-4.8); NEUTROPHILS % (AUTO) 78.5 % (42.0-75.0); PLATELET COUNT 250 X10^3/uL (150.0-450.0); RED BLOOD COUNT 4.85 X10^6/uL (4.7-6.0)
[2018-05-24 16:19] LABS: BLOOD UREA NITROGEN 14 mg/dL (7-18); CALCIUM 8.7 mg/dL (8.5-10.1); CARBON DIOXIDE 25.5 mmol/L (21-32); CHLORIDE 104 mmol/L (98-107); CREATININE 1.01 mg/dL (0.70-1.30); SODIUM 141 mmol/L (136-145); eGFR NON BLACK RACES > 60 (>60)
[2018-05-24 16:24] LABS: ALANINE AMINOTRANSFERASE 31 Units/L (12-78); ALBUMIN 3.8 g/dL (3.4-5.0); ALKALINE PHOSPHATASE 71 Units/L (46-116); AMYLASE 18 Units/L (25-115); ASPARTATE AMINO TRANSFERASE 17 Units/L (15-37); LIPASE 61 Units/L (73-393); TOTAL PROTEIN 6.8 g/dL (6.4-8.2)
[2018-05-24 16:32] LABS: BILIRUBIN,URINE NEGATIVE (NEGATIVE); BLOOD/HEMOGLOBIN,URINE NEGATIVE (NEGATIVE); GLUCOSE, URINE NEGATIVE (NEGATIVE); KETONES,URINE NEGATIVE (NEGATIVE); LEUKOCYTE ESTERASE ,URINE 1+ (NEGATIVE); NITRITES,URINE NEGATIVE (NEGATIVE); PROTEIN,URINE 1+ (NEGATIVE); UROBILINOGEN,URINE 2+ (NORMAL)
[2018-05-24 16:35] LABS: APPEARANCE,URINE SLIGHTLY HAZY (CLEAR); COLOR,URINE YELLOW (YELLOW)
[2018-05-24 16:38] LABS: BACTERIA,URINE TRACE /HPF (NEGATIVE); MUCUS,URINE FEW /HPF (NEGATIVE); RBC,URINE 0-2 /HPF (NONE SEEN); SQUAMOUS EPITHELIAL CELL,UR RARE /HPF (NEGATIVE)
[2018-05-24] MEDS ORDERED: MORPHINE SULFATE INJ 4 MG IVP ONE (17:44)
[2018-05-24] MEDS ORDERED: MORPHINE SULFATE INJ 4 MG ONE (17:51)
--- NOTE | 2018-05-24 18:39 | CT ---
HISTORY: Abdominal pain. Study: CT abdomen and pelvis with contrast Comparison: CT abdomen/pelvis dated May 18, 2016. Technique: Multiple axial images of the abdomen and pelvis were obtained from the lung bases to the pubic symphysis after the administration of IV contrast. Dose reduction techniques including Automated Exposure Control (AEC) and adjustment of mA and kV were utilized. Findings: The visualized portions of the lung bases are unremarkable. The liver, spleen, pancreas, kidneys, and adrenal glands are unremarkable in their CT appearance. The gallbladder is surgically absent. Prominent common bile duct appears unchanged given technique. Multiple mildly dilated air and fluid-filled loops of small bowel up to 4 cm with transition point within the right lower quadrant. Air and stool is seen throughout the large bowel to the level of the rectum. Small amount of layering fluid is seen within the dependent pelvis. No free air or pathologic lymphadenopathy. No pneumatosis intestinalis or portal venous gas. Remaining large and small bowel are unremarkable. The appendix is surgically absent. The prostate gland is unremarkable. The urinary bladder is grossly unremarkable. Degenerative changes of the spine. No aggressive osseous lesions. IMPRESSION: Partial small bowel obstruction versus ileus as above. Recommend clinical/laboratory correlation. Reported By:
[2018-05-24] MEDS: NS + KCL 20 MEQ/L 1,000 ML IV SCH (20:01)
[2018-05-24] MEDS ORDERED: MORPHINE SULFATE INJ 2 MG INJ ONE (20:52)
[2018-05-24] MEDS: MORPHINE SULFATE INJ 2 MG INJ IVP PRN (20:56)
[2018-05-24] MEDS: ZOFRAN INJ 4 MG VIAL IVP PRN (20:56)
[2018-05-25] MEDS: ZOFRAN INJ 4 MG VIAL IVP PRN (03:21)
[2018-05-25] MEDS: MORPHINE SULFATE INJ 2 MG INJ IVP PRN ×3 (03:21→12:13)
[2018-05-25 05:25] LABS: BASOPHILS % (AUTO) 0.3 % (0.2-1.0); EOSINOPHILS # (AUTO) 0.2 x10^3/uL (0.0-0.2); EOSINOPHILS % (AUTO) 3.1 % (0.9-2.9); HEMATOCRIT 37.8 % (42.0-54.0); HEMOGLOBIN 13.5 g/dL (13.5-18.0); LYMPHOCYTES % (AUTO) 16.3 % (21.0-51.0); MEAN CORPUSCULAR HEMOGLOBIN 31.4 pg (27.0-34.0); MEAN CORPUSCULAR HGB CONC 35.8 g/dL (33.0-35.0); MEAN CORPUSCULAR VOLUME 87.6 fL (80.0-100.0); MEAN PLATELET VOLUME 7.9 fL (7.4-11.0); MONOCYTES # (AUTO) 0.6 x10^3/uL (0.3-0.8); MONOCYTES % (AUTO) 9.9 % (0.0-13.0); NEUTROPHILS # (AUTO) 4.3 x10^3/uL (2.2-4.8); NEUTROPHILS % (AUTO) 70.4 % (42.0-75.0); PLATELET COUNT 218 X10^3/uL (150.0-450.0); RED BLOOD COUNT 4.32 X10^6/uL (4.7-6.0); RED CELL DISTRIBUTION WIDTH 13.1 % (11.6-16.5); WHITE BLOOD COUNT 6.2 X10^3/uL (3.6-10.0)
[2018-05-25 05:40] LABS: ALANINE AMINOTRANSFERASE 59 Units/L (12-78); ALBUMIN 3.2 g/dL (3.4-5.0); ALKALINE PHOSPHATASE 72 Units/L (46-116); ASPARTATE AMINO TRANSFERASE 45 Units/L (15-37); BLOOD UREA NITROGEN 12 mg/dL (7-18); CALCIUM 8.1 mg/dL (8.5-10.1); CARBON DIOXIDE 25.9 mmol/L (21-32); CHLORIDE 106 mmol/L (98-107); COR CA(FOR HYPOALB) 8.7 mg/dL (8.5-10.1); CREATININE 0.96 mg/dL (0.70-1.30); SODIUM 141 mmol/L (136-145); TOTAL PROTEIN 5.9 g/dL (6.4-8.2); eGFR NON BLACK RACES > 60 (>60)
[2018-05-25] MEDS: NS + KCL 20 MEQ/L 1,000 ML IV SCH ×3 (06:44→20:54)
--- NOTE | 2018-05-25 13:49 | DR.H&P ---
H&P - History & Physical for Day of: H&P Date: 05/24/18 - History of Present Illness History of Present Illness: PATIENT IS 48 YR OLD WHITE MALE ER ADMISSION WITH ABDOMINAL PAIN AND DISTENSION. PAIN IS LIKE KNIFE GOING THROUGH HIM. PAIN IS DIFFUSE 10/10 AND NON RADIATING. HE HAD NAUSEA AND VOMITING SINCE LAST NIGHT. SMALL BM YESTERDAY MORNING. NO FEVER AND PAIN WORSE TODAY. PT HAS HX OF BOWEL OBSTRUCTIONS IN THE PAIN. PT HAS PMH OF HTN, OA, BERTRAM. PT ADMITTED FOR TREATMENT OF SBO, SURGICAL CONSULT - Past Medical History Past Medical History: Hypertension, GERD Additional Medical History: PARTIAL SMALL BOWEL OBSTRUCTION 4 MONTHS AGO WITH HOSPITALIZATION. - Past Surgical History Surgical History: Appendectomy, Cholecystectomy, Ortho Surgery Additional Surgical History: Lysis of adhesions for SBO. - Family History Family Medical History: Cancer, [place], Hypertension - Social History Does patient currently use any type of tobacco product: No Have you used tobacco products in the last 12 months: No Type of Tobacco Use: None Does any household member use tobacco: No Alcohol Use: None Drug Use: None - Medications Home Medications: No Known Drug Allergies [NKDA] Allergy (Verified 05/24/18 14:53) - Review of Systems Constitutional: Weakness Eyes: No Symptoms Reported ENT: No Symptoms Reported Respiratory: No Symptoms Reported Cardiovascular: No Symptoms Reported Gastrointestinal: Nausea, Vomiting, Abdominal Pain Genitourinary: No Symptoms Reported Musculoskeletal: No Symptoms Reported Skin: No Symptoms Reported Neurological: No Symptoms Reported - Physical Exam Vital Signs: Temperature 98.5 F Pulse Rate [Right Brachial] 78 Pulse Rate [Left] 78 Pulse Rate 105 Respiratory Rate 18 Blood Pressure [Right Arm] 125/75 Blood Pressure [Left Arm] 133/83 Blood Pressure 142/97 O2 Sat by Pulse Oximetry 96 Oriented: Normal Eyes: Normal Ear: Normal Nose: Normal Throat: Normal Respiratory: Clear Throughout Cardiovascular: Normal : Normal Auscultation: Bowel Sounds: Increased Tenderness: Diffuse Skin: Normal Musculoskeletal: Back:Lumbar Psychiatric: Anxiety Affect: Anxious Speech Pattern: Clear, Appropriate - Assessment/Plan (1) SBO (small bowel obstruction) Status: Acute Plan: NPO, SURGICAL CONSULT. PAIN AND NAUSEA CONTROL. BP MONITORING. VERIFY HOME MEDICATION (2) Abdominal pain Qualifiers: Abdominal location: generalized Qualified Code(s): R10.84 - Generalized abdominal pain Status: Acute (3) Hypertension Status: Acute - Allergies Allergies/Adverse Reactions: Allergies Allergy/AdvReac Type Severity Reaction Status Date / Time No Known Drug Allergies Allergy Verified 05/24/18 14:53 [NKDA]
[2018-05-25] MEDS: DILAUDID INJ IVP PRN (17:01)
[2018-05-25] MEDS: PEPCID 20 MG IV PREMIX* 20 MG/50 ML BAG IV PRN (20:55)
[2018-05-26] MEDS: DILAUDID INJ IVP PRN ×4 (00:04→18:33)
[2018-05-26 05:17] LABS: BASOPHILS % (AUTO) 0.3 % (0.2-1.0); EOSINOPHILS # (AUTO) 0.2 x10^3/uL (0.0-0.2); EOSINOPHILS % (AUTO) 4.9 % (0.9-2.9); HEMATOCRIT 36.4 % (42.0-54.0); HEMOGLOBIN 13.2 g/dL (13.5-18.0); LYMPHOCYTES # (AUTO) 1.2 X10^3/uL (1.3-2.9); LYMPHOCYTES % (AUTO) 23.9 % (21.0-51.0); MEAN CORPUSCULAR HEMOGLOBIN 31.6 pg (27.0-34.0); MEAN CORPUSCULAR HGB CONC 36.3 g/dL (33.0-35.0); MEAN PLATELET VOLUME 7.6 fL (7.4-11.0); MONOCYTES # (AUTO) 0.5 x10^3/uL (0.3-0.8); MONOCYTES % (AUTO) 9.8 % (0.0-13.0); NEUTROPHILS # (AUTO) 3.1 x10^3/uL (2.2-4.8); NEUTROPHILS % (AUTO) 61.1 % (42.0-75.0); PLATELET COUNT 207 X10^3/uL (150.0-450.0); RED BLOOD COUNT 4.18 X10^6/uL (4.7-6.0); RED CELL DISTRIBUTION WIDTH 12.9 % (11.6-16.5)
[2018-05-26 05:23] LABS: ALANINE AMINOTRANSFERASE 73 Units/L (12-78); ALBUMIN 3.1 g/dL (3.4-5.0); ALKALINE PHOSPHATASE 79 Units/L (46-116); ASPARTATE AMINO TRANSFERASE 50 Units/L (15-37); BLOOD UREA NITROGEN 8 mg/dL (7-18); CALCIUM 7.9 mg/dL (8.5-10.1); CARBON DIOXIDE 27.1 mmol/L (21-32); CHLORIDE 107 mmol/L (98-107); COR CA(FOR HYPOALB) 8.6 mg/dL (8.5-10.1); SODIUM 141 mmol/L (136-145); TOTAL PROTEIN 5.8 g/dL (6.4-8.2); eGFR NON BLACK RACES > 60 (>60)
[2018-05-26] MEDS: NS + KCL 20 MEQ/L 1,000 ML IV SCH ×3 (05:25→22:54)
--- NOTE | 2018-05-26 07:21 | RAD ---
HISTORY: Abdominal pain, small-bowel obstruction versus ileus Study: Flat and upright abdomen, PA chest Comparison: CT abdomen pelvis 05/24/2018 Findings: The heart is within normal limits in size. The nelida are normal. The lungs are free of acute alveolar infiltrates. There is some subsegmental atelectasis in the right lung base. The abdominal gas pattern is nonspecific and nonobstructive. Contrast is present within the colon precluding complete small bowel obstruction. No pneumoperitoneum is identified. No abnormal masses or abnormal calcifications are identified. Regional skeleton is intact. IMPRESSION: Nonspecific bowel gas pattern. Contrast present within the colon precludes complete small bowel obstruction. Subsegmental atelectasis right lung base Reported By:
--- NOTE | 2018-05-26 15:00 | DR.PROGNOT ---
Hospital Progress Notes - Progress Note for Day of: Progress Note Date: 05/26/18 - Chief Complaint Chief Complaint: still c/o abdominal pain , no vomitin. abdomen is still distended but soft .. abdominal xray showed no obstruction as per radiologist .. not passing flatus - Past Medical Family Social History Past Med/Fam/Surg Hx: No changes since H&P Allergies: Allergies No Known Drug Allergies [NKDA] Allergy (Verified 05/24/18 14:53) - Review Of Systems ROS: No change since H&P - Vital Signs Vital Signs: Temperature 98.3 F Pulse Rate [Right Brachial] 78 Pulse Rate [Left] 78 Pulse Rate 105 Respiratory Rate 18 Blood Pressure [Right Arm] 113/64 Blood Pressure [Left Arm] 133/83 Blood Pressure 142/97 O2 Sat by Pulse Oximetry 99 - Physical Exam Oriented: Normal Eyes: Normal Ear: Normal Nose: Normal Throat: Normal Cardiovascular: Normal : Normal GI:Auscultation: Increased GI: Tenderness: Diffuse Skin: Normal Musculoskeletal: Back:Lumbar Psychiatric: Anxiety Affect: Anxious Speech Pattern: Clear, Appropriate - Laboratory and Diagnostics Result Diagrams: 05/26/18 04:30 05/26/18 04:30 Labs: Laboratory WBC 5.0 X10^3/uL (3.6-10.0) 05/26/18 04:30 RBC 4.18 X10^6/uL (4.7-6.0) L 05/26/18 04:30 Hgb 13.2 g/dL (13.5-18.0) L 05/26/18 04:30 Hct 36.4 % (42.0-54.0) L 05/26/18 04:30 MCV 87.0 fL (80.0-100.0) 05/26/18 04:30 MCH 31.6 pg (27.0-34.0) 05/26/18 04:30 MCHC 36.3 g/dL (33.0-35.0) H 05/26/18 04:30 RDW 12.9 % (11.6-16.5) 05/26/18 04:30 Plt Count 207 X10^3/uL (150.0-450.0) 05/26/18 04:30 MPV 7.6 fL (7.4-11.0) 05/26/18 04:30 Neut % (Auto) 61.1 % (42.0-75.0) 05/26/18 04:30 Lymph % (Auto) 23.9 % (21.0-51.0) 05/26/18 04:30 [place] % (Auto) 9.8 % (0.0-13.0) 05/26/18 04:30 Eos % (Auto) 4.9 % (0.9-2.9) H 05/26/18 04:30 Baso % (Auto) 0.3 % (0.2-1.0) 05/26/18 04:30 Neut # (Auto) 3.1 x10^3/uL (2.2-4.8) 05/26/18 04:30 Lymph # (Auto) 1.2 X10^3/uL (1.3-2.9) L 05/26/18 04:30 [place] # (Auto) 0.5 x10^3/uL (0.3-0.8) 05/26/18 04:30 Eos # (Auto) 0.2 x10^3/uL (0.0-0.2) 05/26/18 04:30 Baso # (Auto) 0.0 X10^3/uL (0.0-0.1) 05/26/18 04:30 Absolute Nucleated RBC 0.0 /100WBC 05/26/18 04:30 Sodium 141 mmol/L (136-145) 05/26/18 04:30 Corrected Sodium TNP 05/26/18 04:30 Potassium 3.4 mmol/L (3.5-5.1) L 05/26/18 04:30 Chloride 107 mmol/L (98-107) 05/26/18 04:30 Carbon Dioxide 27.1 mmol/L (21-32) 05/26/18 04:30 BUN 8 mg/dL (7-18) 05/26/18 04:30 Creatinine 0.80 mg/dL (0.70-1.30) 05/26/18 04:30 Est GFR (MDRD) Af Amer > 60 (>60) 05/26/18 04:30 Est GFR (MDRD) Non-Af > 60 (>60) 05/26/18 04:30 Glucose 83 mg/dL (65-99) 05/26/18 04:30 Calcium 7.9 mg/dL (8.5-10.1) L 05/26/18 04:30 Corrected Calcium 8.6 mg/dL (8.5-10.1) 05/26/18 04:30 Magnesium 2.0 mg/dL (1.7-2.9) 05/26/18 04:30 Total Bilirubin 1.30 mg/dL (0.2-1.0) H 05/26/18 04:30 AST 50 Units/L (15-37) H 05/26/18 04:30 ALT 73 Units/L (12-78) 05/26/18 04:30 Alkaline Phosphatase 79 Units/L (46-116) 05/26/18 04:30 Total Protein 5.8 g/dL (6.4-8.2) L 05/26/18 04:30 Albumin 3.1 g/dL (3.4-5.0) L 05/26/18 04:30 Globulin 2.7 g/dL (2.5-4.5) 05/26/18 04:30 Albumin/Globulin Ratio 1.1 Ratio (1.1-2.1) 05/26/18 04:30 Amylase 18 Units/L (25-115) L 05/24/18 16:05 Lipase 61 Units/L (73-393) L 05/24/18 16:05 Specimen Type Clean catch urine 05/24/18 16:25 Urine Color Yellow (YELLOW) 05/24/18 16:25 Urine Appearance Slightly hazy (CLEAR) 05/24/18 16:25 Urine pH 6.0 (5.0 - 8.0) 05/24/18 16:25 Ur Specific [place] 1.020 (1.000-1.030) 05/24/18 16:25 Urine Protein 1+ (NEGATIVE) 05/24/18 16:25 Urine Glucose (UA) Negative (NEGATIVE) 05/24/18 16:25 Urine Ketones Negative (NEGATIVE) 05/24/18 16:25 Urine Occult Blood Negative (NEGATIVE) 05/24/18 16:25 Urine Nitrite Negative (NEGATIVE) 05/24/18 16:25 Urine Bilirubin Negative (NEGATIVE) 05/24/18 16:25 Urine Urobilinogen 2+ (NORMAL) 05/24/18 16:25 Ur Leukocyte Esterase 1+ (NEGATIVE) 05/24/18 16:25 Urine RBC 0-2 /HPF (NONE SEEN) 05/24/18 16:25 Urine WBC 0-2 /HPF (NONE SEEN) 05/24/18 16:25 Ur Squamous Epith Cells Rare /HPF (NEGATIVE) 05/24/18 16:25 Urine Bacteria Trace /HPF (NEGATIVE) 05/24/18 16:25 Urine Mucus Few /HPF (NEGATIVE) 05/24/18 16:25 Ur Culture Indicated? No/not indicated 05/24/18 16:25 - Assessment and Plan 1: resolving partial SBO . abdominal adhesions . will NPO today and repeat xray in AM
--- NOTE | 2018-05-26 18:25 | PCM.PROG ---
Progress Note - Progress Note for Day of Date of Exam: 05/25/18 - Subjective Subjective: 48-year-old male admitted on 06/23, who presented to the emergency room with persistent abdominal pain over the past two days. The pain involved the mid abdomen radiating across the left and right side with associated nausea and vomiting a few times two days ago. He has had no bowel movement since then and he did not eat or drink for the past two days. The pain was associated with abdominal distention. He is known to have recurrent episodes of partial bowel obstruction. Pt has been NPO, pain control with IV dilaudid, morphine stopped due to SE of BOYER. Dr. Chau consulting, plan to repeat am kub. - Past Medical Family Social History Past Med/Fam/Surg Hx: No changes since H&P Allergies: Allergies No Known Drug Allergies [NKDA] Allergy (Verified 05/24/18 14:53) - Review of Systems ROS: No change since H&P - Vital Signs and I&O's Vital Signs: Temperature 98.0 F Pulse Rate [Right Brachial] 75 Pulse Rate [Left] 78 Pulse Rate 105 Respiratory Rate 18 Blood Pressure [Right Arm] 126/68 Blood Pressure [Left Arm] 133/83 Blood Pressure 142/97 O2 Sat by Pulse Oximetry 98 Intake and Output: Intake & Output 05/24/18 05/25/18 05/26/18 05/27/18 11:59 11:59 11:59 11:59 Intake Total 960 / 960 1250 / 1250 0 / 0 Output Total 0 / 0 Balance 960 / 960 1250 / 1250 0 / 0 - Physical Exam Oriented: Normal Eyes: Normal Ear: Normal Nose: Normal Throat: Normal Cardiovascular: Normal : Normal Auscultation: Bowel Sounds: Increased Tenderness: Diffuse Skin: Normal Musculoskeletal: Back:Lumbar Psychiatric: Anxiety Affect: Anxious Speech Pattern: Clear, Appropriate - Laboratory and Diagnostics Result Diagrams: 05/26/18 04:30 05/26/18 04:30 Labs: Laboratory WBC 5.0 X10^3/uL (3.6-10.0) 05/26/18 04:30 RBC 4.18 X10^6/uL (4.7-6.0) L 05/26/18 04:30 Hgb 13.2 g/dL (13.5-18.0) L 05/26/18 04:30 Hct 36.4 % (42.0-54.0) L 05/26/18 04:30 MCV 87.0 fL (80.0-100.0) 05/26/18 04:30 MCH 31.6 pg (27.0-34.0) 05/26/18 04:30 MCHC 36.3 g/dL (33.0-35.0) H 05/26/18 04:30 RDW 12.9 % (11.6-16.5) 05/26/18 04:30 Plt Count 207 X10^3/uL (150.0-450.0) 05/26/18 04:30 MPV 7.6 fL (7.4-11.0) 05/26/18 04:30 Neut % (Auto) 61.1 % (42.0-75.0) 05/26/18 04:30 Lymph % (Auto) 23.9 % (21.0-51.0) 05/26/18 04:30 [place] % (Auto) 9.8 % (0.0-13.0) 05/26/18 04:30 Eos % (Auto) 4.9 % (0.9-2.9) H 05/26/18 04:30 Baso % (Auto) 0.3 % (0.2-1.0) 05/26/18 04:30 Neut # (Auto) 3.1 x10^3/uL (2.2-4.8) 05/26/18 04:30 Lymph # (Auto) 1.2 X10^3/uL (1.3-2.9) L 05/26/18 04:30 [place] # (Auto) 0.5 x10^3/uL (0.3-0.8) 05/26/18 04:30 Eos # (Auto) 0.2 x10^3/uL (0.0-0.2) 05/26/18 04:30 Baso # (Auto) 0.0 X10^3/uL (0.0-0.1) 05/26/18 04:30 Absolute Nucleated RBC 0.0 /100WBC 05/26/18 04:30 Sodium 141 mmol/L (136-145) 05/26/18 04:30 Corrected Sodium TNP 05/26/18 04:30 Potassium 3.4 mmol/L (3.5-5.1) L 05/26/18 04:30 Chloride 107 mmol/L (98-107) 05/26/18 04:30 Carbon Dioxide 27.1 mmol/L (21-32) 05/26/18 04:30 BUN 8 mg/dL (7-18) 05/26/18 04:30 Creatinine 0.80 mg/dL (0.70-1.30) 05/26/18 04:30 Est GFR (MDRD) Af Amer > 60 (>60) 05/26/18 04:30 Est GFR (MDRD) Non-Af > 60 (>60) 05/26/18 04:30 Glucose 83 mg/dL (65-99) 05/26/18 04:30 Calcium 7.9 mg/dL (8.5-10.1) L 05/26/18 04:30 Corrected Calcium 8.6 mg/dL (8.5-10.1) 05/26/18 04:30 Magnesium 2.0 mg/dL (1.7-2.9) 05/26/18 04:30 Total Bilirubin 1.30 mg/dL (0.2-1.0) H 05/26/18 04:30 AST 50 Units/L (15-37) H 05/26/18 04:30 ALT 73 Units/L (12-78) 05/26/18 04:30 Alkaline Phosphatase 79 Units/L (46-116) 05/26/18 04:30 Total Protein 5.8 g/dL (6.4-8.2) L 05/26/18 04:30 Albumin 3.1 g/dL (3.4-5.0) L 05/26/18 04:30 Globulin 2.7 g/dL (2.5-4.5) 05/26/18 04:30 Albumin/Globulin Ratio 1.1 Ratio (1.1-2.1) 05/26/18 04:30 Amylase 18 Units/L (25-115) L 05/24/18 16:05 Lipase 61 Units/L (73-393) L 05/24/18 16:05 Specimen Type Clean catch urine 05/24/18 16:25 Urine Color Yellow (YELLOW) 05/24/18 16:25 Urine Appearance Slightly hazy (CLEAR) 05/24/18 16:25 Urine pH 6.0 (5.0 - 8.0) 05/24/18 16:25 Ur Specific [place] 1.020 (1.000-1.030) 05/24/18 16:25 Urine Protein 1+ (NEGATIVE) 05/24/18 16:25 Urine Glucose (UA) Negative (NEGATIVE) 05/24/18 16:25 Urine Ketones Negative (NEGATIVE) 05/24/18 16:25 Urine Occult Blood Negative (NEGATIVE) 05/24/18 16:25 Urine Nitrite Negative (NEGATIVE) 05/24/18 16:25 Urine Bilirubin Negative (NEGATIVE) 05/24/18 16:25 Urine Urobilinogen 2+ (NORMAL) 05/24/18 16:25 Ur Leukocyte Esterase 1+ (NEGATIVE) 05/24/18 16:25 Urine RBC 0-2 /HPF (NONE SEEN) 05/24/18 16:25 Urine WBC 0-2 /HPF (NONE SEEN) 05/24/18 16:25 Ur Squamous Epith Cells Rare /HPF (NEGATIVE) 05/24/18 16:25 Urine Bacteria Trace /HPF (NEGATIVE) 05/24/18 16:25 Urine Mucus Few /HPF (NEGATIVE) 05/24/18 16:25 Ur Culture Indicated? No/not indicated 05/24/18 16:25 - Plan (1) SBO (small bowel obstruction) Status: Acute Plan: NPO, SURGICAL CONSULT. PAIN AND NAUSEA CONTROL. BP MONITORING. GENTLE IV HYDRATION, AM LABS (2) Abdominal pain Status: Acute Qualifiers: Abdominal location: generalized Qualified Code(s): R10.84 - Generalized abdominal pain (3) Hypertension Status: Acute
--- NOTE | 2018-05-26 18:26 | PCM.PROG ---
Progress Note - Progress Note for Day of Date of Exam: 05/26/18 - Subjective Subjective: 48-year-old male admitted on 06/23, who presented to the emergency room with persistent abdominal pain over the past two days. The pain involved the mid abdomen radiating across the left and right side with associated nausea and vomiting a few times two days ago. He has had no bowel movement since then and he did not eat or drink for the past two days prior to admission. The pain was associated with abdominal distention. He is known to have recurrent episodes of partial bowel obstruction. Pt has been NPO, pain control with IV dilaudid. Pt continues with abdominal distention this am, but denies vomiting, increased tenderness to right side abdomen. - Past Medical Family Social History Past Med/Fam/Surg Hx: No changes since H&P Allergies: Allergies No Known Drug Allergies [NKDA] Allergy (Verified 05/24/18 14:53) - Review of Systems ROS: No change since H&P - Vital Signs and I&O's Vital Signs: Temperature 98.0 F Pulse Rate [Right Brachial] 75 Pulse Rate [Left] 78 Pulse Rate 105 Respiratory Rate 18 Blood Pressure [Right Arm] 126/68 Blood Pressure [Left Arm] 133/83 Blood Pressure 142/97 O2 Sat by Pulse Oximetry 98 Intake and Output: Intake & Output 05/24/18 05/25/18 05/26/18 05/27/18 11:59 11:59 11:59 11:59 Intake Total 960 / 960 1250 / 1250 0 / 0 Output Total 0 / 0 Balance 960 / 960 1250 / 1250 0 / 0 - Physical Exam Oriented: Normal Eyes: Normal Ear: Normal Nose: Normal Throat: Normal Cardiovascular: Normal : Normal Auscultation: Bowel Sounds: Increased Tenderness: Diffuse Skin: Normal Musculoskeletal: Back:Lumbar Psychiatric: Anxiety Affect: Anxious Speech Pattern: Clear, Appropriate - Laboratory and Diagnostics Result Diagrams: 05/26/18 04:30 05/26/18 04:30 Labs: Laboratory WBC 5.0 X10^3/uL (3.6-10.0) 05/26/18 04:30 RBC 4.18 X10^6/uL (4.7-6.0) L 05/26/18 04:30 Hgb 13.2 g/dL (13.5-18.0) L 05/26/18 04:30 Hct 36.4 % (42.0-54.0) L 05/26/18 04:30 MCV 87.0 fL (80.0-100.0) 05/26/18 04:30 MCH 31.6 pg (27.0-34.0) 05/26/18 04:30 MCHC 36.3 g/dL (33.0-35.0) H 05/26/18 04:30 RDW 12.9 % (11.6-16.5) 05/26/18 04:30 Plt Count 207 X10^3/uL (150.0-450.0) 05/26/18 04:30 MPV 7.6 fL (7.4-11.0) 05/26/18 04:30 Neut % (Auto) 61.1 % (42.0-75.0) 05/26/18 04:30 Lymph % (Auto) 23.9 % (21.0-51.0) 05/26/18 04:30 [place] % (Auto) 9.8 % (0.0-13.0) 05/26/18 04:30 Eos % (Auto) 4.9 % (0.9-2.9) H 05/26/18 04:30 Baso % (Auto) 0.3 % (0.2-1.0) 05/26/18 04:30 Neut # (Auto) 3.1 x10^3/uL (2.2-4.8) 05/26/18 04:30 Lymph # (Auto) 1.2 X10^3/uL (1.3-2.9) L 05/26/18 04:30 [place] # (Auto) 0.5 x10^3/uL (0.3-0.8) 05/26/18 04:30 Eos # (Auto) 0.2 x10^3/uL (0.0-0.2) 05/26/18 04:30 Baso # (Auto) 0.0 X10^3/uL (0.0-0.1) 05/26/18 04:30 Absolute Nucleated RBC 0.0 /100WBC 05/26/18 04:30 Sodium 141 mmol/L (136-145) 05/26/18 04:30 Corrected Sodium TNP 05/26/18 04:30 Potassium 3.4 mmol/L (3.5-5.1) L 05/26/18 04:30 Chloride 107 mmol/L (98-107) 05/26/18 04:30 Carbon Dioxide 27.1 mmol/L (21-32) 05/26/18 04:30 BUN 8 mg/dL (7-18) 05/26/18 04:30 Creatinine 0.80 mg/dL (0.70-1.30) 05/26/18 04:30 Est GFR (MDRD) Af Amer > 60 (>60) 05/26/18 04:30 Est GFR (MDRD) Non-Af > 60 (>60) 05/26/18 04:30 Glucose 83 mg/dL (65-99) 05/26/18 04:30 Calcium 7.9 mg/dL (8.5-10.1) L 05/26/18 04:30 Corrected Calcium 8.6 mg/dL (8.5-10.1) 05/26/18 04:30 Magnesium 2.0 mg/dL (1.7-2.9) 05/26/18 04:30 Total Bilirubin 1.30 mg/dL (0.2-1.0) H 05/26/18 04:30 AST 50 Units/L (15-37) H 05/26/18 04:30 ALT 73 Units/L (12-78) 05/26/18 04:30 Alkaline Phosphatase 79 Units/L (46-116) 05/26/18 04:30 Total Protein 5.8 g/dL (6.4-8.2) L 05/26/18 04:30 Albumin 3.1 g/dL (3.4-5.0) L 05/26/18 04:30 Globulin 2.7 g/dL (2.5-4.5) 05/26/18 04:30 Albumin/Globulin Ratio 1.1 Ratio (1.1-2.1) 05/26/18 04:30 Amylase 18 Units/L (25-115) L 05/24/18 16:05 Lipase 61 Units/L (73-393) L 05/24/18 16:05 Specimen Type Clean catch urine 05/24/18 16:25 Urine Color Yellow (YELLOW) 05/24/18 16:25 Urine Appearance Slightly hazy (CLEAR) 05/24/18 16:25 Urine pH 6.0 (5.0 - 8.0) 05/24/18 16:25 Ur Specific [place] 1.020 (1.000-1.030) 05/24/18 16:25 Urine Protein 1+ (NEGATIVE) 05/24/18 16:25 Urine Glucose (UA) Negative (NEGATIVE) 05/24/18 16:25 Urine Ketones Negative (NEGATIVE) 05/24/18 16:25 Urine Occult Blood Negative (NEGATIVE) 05/24/18 16:25 Urine Nitrite Negative (NEGATIVE) 05/24/18 16:25 Urine Bilirubin Negative (NEGATIVE) 05/24/18 16:25 Urine Urobilinogen 2+ (NORMAL) 05/24/18 16:25 Ur Leukocyte Esterase 1+ (NEGATIVE) 05/24/18 16:25 Urine RBC 0-2 /HPF (NONE SEEN) 05/24/18 16:25 Urine WBC 0-2 /HPF (NONE SEEN) 05/24/18 16:25 Ur Squamous Epith Cells Rare /HPF (NEGATIVE) 05/24/18 16:25 Urine Bacteria Trace /HPF (NEGATIVE) 05/24/18 16:25 Urine Mucus Few /HPF (NEGATIVE) 05/24/18 16:25 Ur Culture Indicated? No/not indicated 05/24/18 16:25 - Plan (1) SBO (small bowel obstruction) Status: Acute Plan: NPO, SURGICAL CONSULT. PAIN AND NAUSEA CONTROL. BP MONITORING. GENTLE IV HYDRATION, AM LABS (2) Abdominal pain Status: Acute Qualifiers: Abdominal location: generalized Qualified Code(s): R10.84 - Generalized abdominal pain (3) Hypertension Status: Acute
[2018-05-26] MEDS: PEPCID 20 MG IV PREMIX* 20 MG/50 ML BAG IV PRN (21:29)
[2018-05-27] MEDS: DILAUDID INJ IVP PRN ×4 (00:25→19:15)
[2018-05-27] MEDS: NS + KCL 20 MEQ/L 1,000 ML IV SCH ×3 (05:06→21:32)
[2018-05-27 05:21] LABS: BASOPHILS % (AUTO) 0.2 % (0.2-1.0); EOSINOPHILS # (AUTO) 0.3 x10^3/uL (0.0-0.2); EOSINOPHILS % (AUTO) 4.7 % (0.9-2.9); HEMOGLOBIN 13.6 g/dL (13.5-18.0); LYMPHOCYTES # (AUTO) 1.2 X10^3/uL (1.3-2.9); LYMPHOCYTES % (AUTO) 21.9 % (21.0-51.0); MEAN CORPUSCULAR HEMOGLOBIN 30.9 pg (27.0-34.0); MEAN CORPUSCULAR HGB CONC 35.8 g/dL (33.0-35.0); MEAN CORPUSCULAR VOLUME 86.4 fL (80.0-100.0); MEAN PLATELET VOLUME 7.4 fL (7.4-11.0); MONOCYTES # (AUTO) 0.5 x10^3/uL (0.3-0.8); MONOCYTES % (AUTO) 9.5 % (0.0-13.0); NEUTROPHILS # (AUTO) 3.4 x10^3/uL (2.2-4.8); NEUTROPHILS % (AUTO) 63.7 % (42.0-75.0); PLATELET COUNT 247 X10^3/uL (150.0-450.0); RED BLOOD COUNT 4.39 X10^6/uL (4.7-6.0); RED CELL DISTRIBUTION WIDTH 12.9 % (11.6-16.5); WHITE BLOOD COUNT 5.4 X10^3/uL (3.6-10.0)
[2018-05-27 05:32] LABS: ALANINE AMINOTRANSFERASE 70 Units/L (12-78); ALBUMIN 3.3 g/dL (3.4-5.0); ALKALINE PHOSPHATASE 98 Units/L (46-116); ASPARTATE AMINO TRANSFERASE 39 Units/L (15-37); BLOOD UREA NITROGEN 7 mg/dL (7-18); CALCIUM 8.4 mg/dL (8.5-10.1); CHLORIDE 106 mmol/L (98-107); CREATININE 0.77 mg/dL (0.70-1.30); SODIUM 139 mmol/L (136-145); TOTAL PROTEIN 6.2 g/dL (6.4-8.2); eGFR NON BLACK RACES > 60 (>60)
--- NOTE | 2018-05-27 09:37 | RAD ---
HISTORY: Abdominal pain Study: Flat and upright abdomen, PA chest Comparison: 05/26/2018 Findings: The heart is within normal limits in size. The nelida are normal. Lung [place] are clear. The abdominal gas pattern is nonspecific and nonobstructive. No pneumoperitoneum is identified. No abnormal masses or abnormal calcifications are identified. IMPRESSION: Unremarkable flat and upright abdomen Lungs clear Reported By:
[2018-05-27] MEDS: PEPCID 20 MG IV PREMIX* 20 MG/50 ML BAG IV SCH ×2 (12:19→21:32)
[2018-05-27] MEDS: ZITHROMAX INJ 500 MG VIAL 500 MG in NS 250 ML IV 250 ML IV SCH (14:00)
--- NOTE | 2018-05-27 16:41 | DR.PROGNOT ---
Hospital Progress Notes - Progress Note for Day of: Progress Note Date: 05/27/18 - Chief Complaint Chief Complaint: still c/o abdominal pain , no vomitin.no BM. abdomen is still distended but soft .. abdominal xray showed no obstruction as per radiologist .. normal CBC and CMP. - Past Medical Family Social History Past Med/Fam/Surg Hx: No changes since H&P Allergies: Allergies No Known Drug Allergies [NKDA] Allergy (Verified 05/24/18 14:53) - Review Of Systems ROS: No change since H&P - Vital Signs Vital Signs: Temperature 98.2 F Pulse Rate [Right Brachial] 86 Pulse Rate [Left] 78 Pulse Rate 105 Respiratory Rate 20 Blood Pressure [Right Arm] 125/74 Blood Pressure [Left Arm] 133/83 Blood Pressure 142/97 O2 Sat by Pulse Oximetry 96 - Physical Exam Oriented: Normal Eyes: Normal Ear: Normal Nose: Normal Throat: Normal Cardiovascular: Normal : Normal GI:Auscultation: Increased GI:Palpation: Normal GI: Tenderness: Diffuse Skin: Normal Musculoskeletal: Back:Lumbar Psychiatric: Anxiety Affect: Anxious Speech Pattern: Clear, Appropriate - Laboratory and Diagnostics Result Diagrams: 05/27/18 04:44 05/27/18 04:44 Labs: Laboratory WBC 5.4 X10^3/uL (3.6-10.0) 05/27/18 04:44 RBC 4.39 X10^6/uL (4.7-6.0) L 05/27/18 04:44 Hgb 13.6 g/dL (13.5-18.0) 05/27/18 04:44 Hct 38.0 % (42.0-54.0) L 05/27/18 04:44 MCV 86.4 fL (80.0-100.0) 05/27/18 04:44 MCH 30.9 pg (27.0-34.0) 05/27/18 04:44 MCHC 35.8 g/dL (33.0-35.0) H 05/27/18 04:44 RDW 12.9 % (11.6-16.5) 05/27/18 04:44 Plt Count 247 X10^3/uL (150.0-450.0) 05/27/18 04:44 MPV 7.4 fL (7.4-11.0) 05/27/18 04:44 Neut % (Auto) 63.7 % (42.0-75.0) 05/27/18 04:44 Lymph % (Auto) 21.9 % (21.0-51.0) 05/27/18 04:44 [place] % (Auto) 9.5 % (0.0-13.0) 05/27/18 04:44 Eos % (Auto) 4.7 % (0.9-2.9) H 05/27/18 04:44 Baso % (Auto) 0.2 % (0.2-1.0) 05/27/18 04:44 Neut # (Auto) 3.4 x10^3/uL (2.2-4.8) 05/27/18 04:44 Lymph # (Auto) 1.2 X10^3/uL (1.3-2.9) L 05/27/18 04:44 [place] # (Auto) 0.5 x10^3/uL (0.3-0.8) 05/27/18 04:44 Eos # (Auto) 0.3 x10^3/uL (0.0-0.2) H 05/27/18 04:44 Baso # (Auto) 0.0 X10^3/uL (0.0-0.1) 05/27/18 04:44 Absolute Nucleated RBC 0.1 /100WBC 05/27/18 04:44 Sodium 139 mmol/L (136-145) 05/27/18 04:44 Corrected Sodium TNP 05/27/18 04:44 Potassium 3.7 mmol/L (3.5-5.1) 05/27/18 04:44 Chloride 106 mmol/L (98-107) 05/27/18 04:44 Carbon Dioxide 24.0 mmol/L (21-32) 05/27/18 04:44 BUN 7 mg/dL (7-18) 05/27/18 04:44 Creatinine 0.77 mg/dL (0.70-1.30) 05/27/18 04:44 Est GFR (MDRD) Af Amer > 60 (>60) 05/27/18 04:44 Est GFR (MDRD) Non-Af > 60 (>60) 05/27/18 04:44 Glucose 79 mg/dL (65-99) 05/27/18 04:44 Calcium 8.4 mg/dL (8.5-10.1) L 05/27/18 04:44 Corrected Calcium 9.0 mg/dL (8.5-10.1) 05/27/18 04:44 Magnesium 2.0 mg/dL (1.7-2.9) 05/26/18 04:30 Total Bilirubin 1.30 mg/dL (0.2-1.0) H 05/27/18 04:44 AST 39 Units/L (15-37) H 05/27/18 04:44 ALT 70 Units/L (12-78) 05/27/18 04:44 Alkaline Phosphatase 98 Units/L (46-116) 05/27/18 04:44 Total Protein 6.2 g/dL (6.4-8.2) L 05/27/18 04:44 Albumin 3.3 g/dL (3.4-5.0) L 05/27/18 04:44 Globulin 2.9 g/dL (2.5-4.5) 05/27/18 04:44 Albumin/Globulin Ratio 1.1 Ratio (1.1-2.1) 05/27/18 04:44 Amylase 18 Units/L (25-115) L 05/24/18 16:05 Lipase 61 Units/L (73-393) L 05/24/18 16:05 Specimen Type Clean catch urine 05/24/18 16:25 Urine Color Yellow (YELLOW) 05/24/18 16:25 Urine Appearance Slightly hazy (CLEAR) 05/24/18 16:25 Urine pH 6.0 (5.0 - 8.0) 05/24/18 16:25 Ur Specific [place] 1.020 (1.000-1.030) 05/24/18 16:25 Urine Protein 1+ (NEGATIVE) 05/24/18 16:25 Urine Glucose (UA) Negative (NEGATIVE) 05/24/18 16:25 Urine Ketones Negative (NEGATIVE) 05/24/18 16:25 Urine Occult Blood Negative (NEGATIVE) 05/24/18 16:25 Urine Nitrite Negative (NEGATIVE) 05/24/18 16:25 Urine Bilirubin Negative (NEGATIVE) 05/24/18 16:25 Urine Urobilinogen 2+ (NORMAL) 05/24/18 16:25 Ur Leukocyte Esterase 1+ (NEGATIVE) 05/24/18 16:25 Urine RBC 0-2 /HPF (NONE SEEN) 05/24/18 16:25 Urine WBC 0-2 /HPF (NONE SEEN) 05/24/18 16:25 Ur Squamous Epith Cells Rare /HPF (NEGATIVE) 05/24/18 16:25 Urine Bacteria Trace /HPF (NEGATIVE) 05/24/18 16:25 Urine Mucus Few /HPF (NEGATIVE) 05/24/18 16:25 Ur Culture Indicated? No/not indicated 05/24/18 16:25 - Assessment and Plan 1: resolving partial SBO . abdominal adhesions . to start full liquid diet and repeat abdominal xray in am . will need SBFT and colonoscopy which could be done as an OP .
--- NOTE | 2018-05-27 17:49 | PCM.PROG ---
Progress Note - Progress Note for Day of Date of Exam: 05/27/18 - Subjective Subjective: 48-year-old male admitted on 06/23, who presented to the emergency room with persistent abdominal pain over the past two days. The pain involved the mid abdomen radiating across the left and right side with associated nausea and vomiting a few times two days ago. He has had no bowel movement since then and he did not eat or drink for the past two days prior to admission. The pain was associated with abdominal distention. He is known to have recurrent episodes of partial bowel obstruction. Pt has been NPO, pain control with IV dilaudid. Pt continues with abdominal distention this am, but denies vomiting. Repeat abd series this am, started on Iv azithromycin. Dr. Ritchie consulting - Past Medical Family Social History Past Med/Fam/Surg Hx: No changes since H&P Allergies: Allergies No Known Drug Allergies [NKDA] Allergy (Verified 05/24/18 14:53) - Review of Systems ROS: No change since H&P - Vital Signs and I&O's Vital Signs: Temperature 98.2 F Pulse Rate [Right Brachial] 86 Pulse Rate [Left] 78 Pulse Rate 105 Respiratory Rate 20 Blood Pressure [Right Arm] 125/74 Blood Pressure [Left Arm] 133/83 Blood Pressure 142/97 O2 Sat by Pulse Oximetry 96 Intake and Output: Intake & Output 05/25/18 05/26/18 05/27/18 05/28/18 11:59 11:59 11:59 11:59 Intake Total 960 / 960 1250 / 1250 1500 / 1500 560 / 560 Output Total 0 / 0 Balance 960 / 960 1250 / 1250 1500 / 1500 560 / 560 - Physical Exam Oriented: Normal Eyes: Normal Ear: Normal Nose: Normal Throat: Normal Cardiovascular: Normal : Normal Auscultation: Bowel Sounds: Increased Tenderness: Diffuse Skin: Normal Musculoskeletal: Back:Lumbar Psychiatric: Anxiety Affect: Anxious Speech Pattern: Clear, Appropriate - Laboratory and Diagnostics Result Diagrams: 05/27/18 04:44 05/27/18 04:44 Labs: Laboratory WBC 5.4 X10^3/uL (3.6-10.0) 05/27/18 04:44 RBC 4.39 X10^6/uL (4.7-6.0) L 05/27/18 04:44 Hgb 13.6 g/dL (13.5-18.0) 05/27/18 04:44 Hct 38.0 % (42.0-54.0) L 05/27/18 04:44 MCV 86.4 fL (80.0-100.0) 05/27/18 04:44 MCH 30.9 pg (27.0-34.0) 05/27/18 04:44 MCHC 35.8 g/dL (33.0-35.0) H 05/27/18 04:44 RDW 12.9 % (11.6-16.5) 05/27/18 04:44 Plt Count 247 X10^3/uL (150.0-450.0) 05/27/18 04:44 MPV 7.4 fL (7.4-11.0) 05/27/18 04:44 Neut % (Auto) 63.7 % (42.0-75.0) 05/27/18 04:44 Lymph % (Auto) 21.9 % (21.0-51.0) 05/27/18 04:44 [place] % (Auto) 9.5 % (0.0-13.0) 05/27/18 04:44 Eos % (Auto) 4.7 % (0.9-2.9) H 05/27/18 04:44 Baso % (Auto) 0.2 % (0.2-1.0) 05/27/18 04:44 Neut # (Auto) 3.4 x10^3/uL (2.2-4.8) 05/27/18 04:44 Lymph # (Auto) 1.2 X10^3/uL (1.3-2.9) L 05/27/18 04:44 [place] # (Auto) 0.5 x10^3/uL (0.3-0.8) 05/27/18 04:44 Eos # (Auto) 0.3 x10^3/uL (0.0-0.2) H 05/27/18 04:44 Baso # (Auto) 0.0 X10^3/uL (0.0-0.1) 05/27/18 04:44 Absolute Nucleated RBC 0.1 /100WBC 05/27/18 04:44 Sodium 139 mmol/L (136-145) 05/27/18 04:44 Corrected Sodium TNP 05/27/18 04:44 Potassium 3.7 mmol/L (3.5-5.1) 05/27/18 04:44 Chloride 106 mmol/L (98-107) 05/27/18 04:44 Carbon Dioxide 24.0 mmol/L (21-32) 05/27/18 04:44 BUN 7 mg/dL (7-18) 05/27/18 04:44 Creatinine 0.77 mg/dL (0.70-1.30) 05/27/18 04:44 Est GFR (MDRD) Af Amer > 60 (>60) 05/27/18 04:44 Est GFR (MDRD) Non-Af > 60 (>60) 05/27/18 04:44 Glucose 79 mg/dL (65-99) 05/27/18 04:44 Calcium 8.4 mg/dL (8.5-10.1) L 05/27/18 04:44 Corrected Calcium 9.0 mg/dL (8.5-10.1) 05/27/18 04:44 Magnesium 2.0 mg/dL (1.7-2.9) 05/26/18 04:30 Total Bilirubin 1.30 mg/dL (0.2-1.0) H 05/27/18 04:44 AST 39 Units/L (15-37) H 05/27/18 04:44 ALT 70 Units/L (12-78) 05/27/18 04:44 Alkaline Phosphatase 98 Units/L (46-116) 05/27/18 04:44 Total Protein 6.2 g/dL (6.4-8.2) L 05/27/18 04:44 Albumin 3.3 g/dL (3.4-5.0) L 05/27/18 04:44 Globulin 2.9 g/dL (2.5-4.5) 05/27/18 04:44 Albumin/Globulin Ratio 1.1 Ratio (1.1-2.1) 05/27/18 04:44 Amylase 18 Units/L (25-115) L 05/24/18 16:05 Lipase 61 Units/L (73-393) L 05/24/18 16:05 Specimen Type Clean catch urine 05/24/18 16:25 Urine Color Yellow (YELLOW) 05/24/18 16:25 Urine Appearance Slightly hazy (CLEAR) 05/24/18 16:25 Urine pH 6.0 (5.0 - 8.0) 05/24/18 16:25 Ur Specific [place] 1.020 (1.000-1.030) 05/24/18 16:25 Urine Protein 1+ (NEGATIVE) 05/24/18 16:25 Urine Glucose (UA) Negative (NEGATIVE) 05/24/18 16:25 Urine Ketones Negative (NEGATIVE) 05/24/18 16:25 Urine Occult Blood Negative (NEGATIVE) 05/24/18 16:25 Urine Nitrite Negative (NEGATIVE) 05/24/18 16:25 Urine Bilirubin Negative (NEGATIVE) 05/24/18 16:25 Urine Urobilinogen 2+ (NORMAL) 05/24/18 16:25 Ur Leukocyte Esterase 1+ (NEGATIVE) 05/24/18 16:25 Urine RBC 0-2 /HPF (NONE SEEN) 05/24/18 16:25 Urine WBC 0-2 /HPF (NONE SEEN) 05/24/18 16:25 Ur Squamous Epith Cells Rare /HPF (NEGATIVE) 05/24/18 16:25 Urine Bacteria Trace /HPF (NEGATIVE) 05/24/18 16:25 Urine Mucus Few /HPF (NEGATIVE) 05/24/18 16:25 Ur Culture Indicated? No/not indicated 05/24/18 16:25 - Plan (1) SBO (small bowel obstruction) Status: Acute Plan: NPO, SURGICAL CONSULT. PAIN AND NAUSEA CONTROL. BP MONITORING. GENTLE IV HYDRATION, AM LABS (2) Abdominal pain Status: Acute Qualifiers: Abdominal location: generalized Qualified Code(s): R10.84 - Generalized abdominal pain (3) Hypertension Status: Acute
[2018-05-28] MEDS: DILAUDID INJ IVP PRN ×4 (01:15→19:41)
[2018-05-28] MEDS: NS + KCL 20 MEQ/L 1,000 ML IV SCH ×4 (05:22→20:04)
[2018-05-28 05:28] LABS: BASOPHILS % (AUTO) 0.4 % (0.2-1.0); EOSINOPHILS # (AUTO) 0.2 x10^3/uL (0.0-0.2); EOSINOPHILS % (AUTO) 4.3 % (0.9-2.9); HEMATOCRIT 38.1 % (42.0-54.0); HEMOGLOBIN 13.7 g/dL (13.5-18.0); LYMPHOCYTES # (AUTO) 1.2 X10^3/uL (1.3-2.9); LYMPHOCYTES % (AUTO) 23.1 % (21.0-51.0); MEAN CORPUSCULAR HEMOGLOBIN 31.1 pg (27.0-34.0); MEAN CORPUSCULAR VOLUME 86.4 fL (80.0-100.0); MEAN PLATELET VOLUME 7.4 fL (7.4-11.0); MONOCYTES # (AUTO) 0.5 x10^3/uL (0.3-0.8); MONOCYTES % (AUTO) 9.5 % (0.0-13.0); NEUTROPHILS # (AUTO) 3.2 x10^3/uL (2.2-4.8); NEUTROPHILS % (AUTO) 62.7 % (42.0-75.0); PLATELET COUNT 277 X10^3/uL (150.0-450.0); RED BLOOD COUNT 4.41 X10^6/uL (4.7-6.0); WHITE BLOOD COUNT 5.1 X10^3/uL (3.6-10.0)
[2018-05-28 05:43] LABS: ALANINE AMINOTRANSFERASE 57 Units/L (12-78); ALBUMIN 3.4 g/dL (3.4-5.0); ALKALINE PHOSPHATASE 93 Units/L (46-116); ASPARTATE AMINO TRANSFERASE 25 Units/L (15-37); BLOOD UREA NITROGEN 6 mg/dL (7-18); CALCIUM 8.7 mg/dL (8.5-10.1); CARBON DIOXIDE 25.7 mmol/L (21-32); CHLORIDE 105 mmol/L (98-107); CREATININE 0.83 mg/dL (0.70-1.30); SODIUM 141 mmol/L (136-145); TOTAL PROTEIN 6.3 g/dL (6.4-8.2); eGFR NON BLACK RACES > 60 (>60)
--- NOTE | 2018-05-28 06:56 | RAD ---
HISTORY: Small-bowel obstruction Study: Flat and upright abdomen, PA chest Comparison: 05/27/2018 Findings: The heart is within normal limits in size. The nelida are normal. The lung [place] are clear. No pleural effusions are identified. The abdominal gas pattern is nonspecific and nonobstructive. No pneumoperitoneum is identified. No abnormal masses or abnormal calcifications are identified. Surgical clips are present in the right upper quadrant. IMPRESSION: Lungs clear Unremarkable flat Reported By:
[2018-05-28] MEDS: PEPCID 20 MG IV PREMIX* 20 MG/50 ML BAG IV SCH ×2 (09:20→20:04)
[2018-05-28] MEDS: ZITHROMAX INJ 500 MG VIAL 500 MG in NS 250 ML IV 250 ML IV SCH (13:19)
--- NOTE | 2018-05-28 16:49 | DR.PROGNOT ---
Hospital Progress Notes - Progress Note for Day of: Progress Note Date: 05/28/18 - Chief Complaint Chief Complaint: feeling much better with less abdominalpain , no nausea or vomiting . passing flatus and small BM. abdominal xray showed no obstruction as per radiologist .. normal CBC and CMP. afebrile . - Past Medical Family Social History Past Med/Fam/Surg Hx: No changes since H&P Allergies: Allergies No Known Drug Allergies [NKDA] Allergy (Verified 05/24/18 14:53) - Review Of Systems ROS: No change since H&P - Vital Signs Vital Signs: Temperature 98.1 F Pulse Rate [Right Brachial] 76 Pulse Rate [Left] 78 Pulse Rate 105 Respiratory Rate 20 Blood Pressure [Right Arm] 114/72 Blood Pressure [Left Arm] 133/83 Blood Pressure 142/97 O2 Sat by Pulse Oximetry 97 - Physical Exam Oriented: Normal Eyes: Normal Ear: Normal Nose: Normal Throat: Normal Cardiovascular: Normal : Normal GI:Auscultation: Increased GI:Palpation: Normal GI: Tenderness: Diffuse Skin: Normal Musculoskeletal: Back:Lumbar Psychiatric: Anxiety Affect: Anxious Speech Pattern: Clear, Appropriate - Laboratory and Diagnostics Result Diagrams: 05/28/18 04:25 05/28/18 04:25 Labs: Laboratory WBC 5.1 X10^3/uL (3.6-10.0) 05/28/18 04:25 RBC 4.41 X10^6/uL (4.7-6.0) L 05/28/18 04:25 Hgb 13.7 g/dL (13.5-18.0) 05/28/18 04:25 Hct 38.1 % (42.0-54.0) L 05/28/18 04:25 MCV 86.4 fL (80.0-100.0) 05/28/18 04:25 MCH 31.1 pg (27.0-34.0) 05/28/18 04:25 MCHC 36.0 g/dL (33.0-35.0) H 05/28/18 04:25 RDW 13.0 % (11.6-16.5) 05/28/18 04:25 Plt Count 277 X10^3/uL (150.0-450.0) 05/28/18 04:25 MPV 7.4 fL (7.4-11.0) 05/28/18 04:25 Neut % (Auto) 62.7 % (42.0-75.0) 05/28/18 04:25 Lymph % (Auto) 23.1 % (21.0-51.0) 05/28/18 04:25 [place] % (Auto) 9.5 % (0.0-13.0) 05/28/18 04:25 Eos % (Auto) 4.3 % (0.9-2.9) H 05/28/18 04:25 Baso % (Auto) 0.4 % (0.2-1.0) 05/28/18 04:25 Neut # (Auto) 3.2 x10^3/uL (2.2-4.8) 05/28/18 04:25 Lymph # (Auto) 1.2 X10^3/uL (1.3-2.9) L 05/28/18 04:25 [place] # (Auto) 0.5 x10^3/uL (0.3-0.8) 05/28/18 04:25 Eos # (Auto) 0.2 x10^3/uL (0.0-0.2) 05/28/18 04:25 Baso # (Auto) 0.0 X10^3/uL (0.0-0.1) 05/28/18 04:25 Absolute Nucleated RBC 0.2 /100WBC 05/28/18 04:25 Sodium 141 mmol/L (136-145) 05/28/18 04:25 Corrected Sodium TNP 05/28/18 04:25 Potassium 3.5 mmol/L (3.5-5.1) 05/28/18 04:25 Chloride 105 mmol/L (98-107) 05/28/18 04:25 Carbon Dioxide 25.7 mmol/L (21-32) 05/28/18 04:25 BUN 6 mg/dL (7-18) L 05/28/18 04:25 Creatinine 0.83 mg/dL (0.70-1.30) 05/28/18 04:25 Est GFR (MDRD) Af Amer > 60 (>60) 05/28/18 04:25 Est GFR (MDRD) Non-Af > 60 (>60) 05/28/18 04:25 Glucose 93 mg/dL (65-99) 05/28/18 04:25 Calcium 8.7 mg/dL (8.5-10.1) 05/28/18 04:25 Corrected Calcium TNP 05/28/18 04:25 Magnesium 2.0 mg/dL (1.7-2.9) 05/26/18 04:30 Total Bilirubin 1.00 mg/dL (0.2-1.0) 05/28/18 04:25 AST 25 Units/L (15-37) 05/28/18 04:25 ALT 57 Units/L (12-78) 05/28/18 04:25 Alkaline Phosphatase 93 Units/L (46-116) 05/28/18 04:25 Total Protein 6.3 g/dL (6.4-8.2) L 05/28/18 04:25 Albumin 3.4 g/dL (3.4-5.0) 05/28/18 04:25 Globulin 2.9 g/dL (2.5-4.5) 05/28/18 04:25 Albumin/Globulin Ratio 1.2 Ratio (1.1-2.1) 05/28/18 04:25 Amylase 18 Units/L (25-115) L 05/24/18 16:05 Lipase 61 Units/L (73-393) L 05/24/18 16:05 Specimen Type Clean catch urine 05/24/18 16:25 Urine Color Yellow (YELLOW) 05/24/18 16:25 Urine Appearance Slightly hazy (CLEAR) 05/24/18 16:25 Urine pH 6.0 (5.0 - 8.0) 05/24/18 16:25 Ur Specific [place] 1.020 (1.000-1.030) 05/24/18 16:25 Urine Protein 1+ (NEGATIVE) 05/24/18 16:25 Urine Glucose (UA) Negative (NEGATIVE) 05/24/18 16:25 Urine Ketones Negative (NEGATIVE) 05/24/18 16:25 Urine Occult Blood Negative (NEGATIVE) 05/24/18 16:25 Urine Nitrite Negative (NEGATIVE) 05/24/18 16:25 Urine Bilirubin Negative (NEGATIVE) 05/24/18 16:25 Urine Urobilinogen 2+ (NORMAL) 05/24/18 16:25 Ur Leukocyte Esterase 1+ (NEGATIVE) 05/24/18 16:25 Urine RBC 0-2 /HPF (NONE SEEN) 05/24/18 16:25 Urine WBC 0-2 /HPF (NONE SEEN) 05/24/18 16:25 Ur Squamous Epith Cells Rare /HPF (NEGATIVE) 05/24/18 16:25 Urine Bacteria Trace /HPF (NEGATIVE) 05/24/18 16:25 Urine Mucus Few /HPF (NEGATIVE) 05/24/18 16:25 Ur Culture Indicated? No/not indicated 05/24/18 16:25 Stool Description 195g,yellow,unformed 05/27/18 17:44 Stl Occult Blood (IFOB) Negative (NEGATIVE) 05/27/18 17:44 - Assessment and Plan 1: resolving partial SBO . abdominal adhesions . to start on soft diet and repeat abdominal xray in am . will need SBFT and colonoscopy which will be arranged as out Pt . will follow in the office next week.
--- NOTE | 2018-05-28 17:06 | PCM.PROG ---
Progress Note - Progress Note for Day of Date of Exam: 05/28/18 - Subjective Subjective: 48-year-old male admitted on 06/23, who presented to the emergency room with persistent abdominal pain over the past two days. The pain involved the mid abdomen radiating across the left and right side with associated nausea and vomiting a few times two days prior to admission. He has had no bowel movement since then and he did not eat or drink for the past two days prior to admission. He is known to have recurrent episodes of partial bowel obstruction. resolving partial SBO . abdominal adhesions . to start on soft diet and repeat abdominal xray in am. Will need SBFT and colonoscopy which will be arranged as out Pt and will follow up with Dr Ritchie on outpt basis. - Past Medical Family Social History Past Med/Fam/Surg Hx: No changes since H&P Allergies: Allergies No Known Drug Allergies [NKDA] Allergy (Verified 05/24/18 14:53) - Review of Systems ROS: No change since H&P - Vital Signs and I&O's Vital Signs: Temperature 98.1 F Pulse Rate [Right Brachial] 76 Pulse Rate [Left] 78 Pulse Rate 105 Respiratory Rate 20 Blood Pressure [Right Arm] 114/72 Blood Pressure [Left Arm] 133/83 Blood Pressure 142/97 O2 Sat by Pulse Oximetry 97 Intake and Output: Intake & Output 05/26/18 05/27/18 05/28/18 05/29/18 11:59 11:59 11:59 11:59 Intake Total 1250 / 1250 1500 / 1500 2960 / 2960 360 / 360 Balance 1250 / 1250 1500 / 1500 2960 / 2960 360 / 360 - Physical Exam Oriented: Normal Eyes: Normal Ear: Normal Nose: Normal Throat: Normal Cardiovascular: Normal : Normal Auscultation: Bowel Sounds: Increased Tenderness: RLQ, Mild Skin: Normal Musculoskeletal: Back:Lumbar Psychiatric: Anxiety Affect: Anxious Speech Pattern: Clear, Appropriate - Laboratory and Diagnostics Result Diagrams: 05/28/18 04:25 05/28/18 04:25 Labs: Laboratory WBC 5.1 X10^3/uL (3.6-10.0) 05/28/18 04:25 RBC 4.41 X10^6/uL (4.7-6.0) L 05/28/18 04:25 Hgb 13.7 g/dL (13.5-18.0) 05/28/18 04:25 Hct 38.1 % (42.0-54.0) L 05/28/18 04:25 MCV 86.4 fL (80.0-100.0) 05/28/18 04:25 MCH 31.1 pg (27.0-34.0) 05/28/18 04:25 MCHC 36.0 g/dL (33.0-35.0) H 05/28/18 04:25 RDW 13.0 % (11.6-16.5) 05/28/18 04:25 Plt Count 277 X10^3/uL (150.0-450.0) 05/28/18 04:25 MPV 7.4 fL (7.4-11.0) 05/28/18 04:25 Neut % (Auto) 62.7 % (42.0-75.0) 05/28/18 04:25 Lymph % (Auto) 23.1 % (21.0-51.0) 05/28/18 04:25 [place] % (Auto) 9.5 % (0.0-13.0) 05/28/18 04:25 Eos % (Auto) 4.3 % (0.9-2.9) H 05/28/18 04:25 Baso % (Auto) 0.4 % (0.2-1.0) 05/28/18 04:25 Neut # (Auto) 3.2 x10^3/uL (2.2-4.8) 05/28/18 04:25 Lymph # (Auto) 1.2 X10^3/uL (1.3-2.9) L 05/28/18 04:25 [place] # (Auto) 0.5 x10^3/uL (0.3-0.8) 05/28/18 04:25 Eos # (Auto) 0.2 x10^3/uL (0.0-0.2) 05/28/18 04:25 Baso # (Auto) 0.0 X10^3/uL (0.0-0.1) 05/28/18 04:25 Absolute Nucleated RBC 0.2 /100WBC 05/28/18 04:25 Sodium 141 mmol/L (136-145) 05/28/18 04:25 Corrected Sodium TNP 05/28/18 04:25 Potassium 3.5 mmol/L (3.5-5.1) 05/28/18 04:25 Chloride 105 mmol/L (98-107) 05/28/18 04:25 Carbon Dioxide 25.7 mmol/L (21-32) 05/28/18 04:25 BUN 6 mg/dL (7-18) L 05/28/18 04:25 Creatinine 0.83 mg/dL (0.70-1.30) 05/28/18 04:25 Est GFR (MDRD) Af Amer > 60 (>60) 05/28/18 04:25 Est GFR (MDRD) Non-Af > 60 (>60) 05/28/18 04:25 Glucose 93 mg/dL (65-99) 05/28/18 04:25 Calcium 8.7 mg/dL (8.5-10.1) 05/28/18 04:25 Corrected Calcium TNP 05/28/18 04:25 Magnesium 2.0 mg/dL (1.7-2.9) 05/26/18 04:30 Total Bilirubin 1.00 mg/dL (0.2-1.0) 05/28/18 04:25 AST 25 Units/L (15-37) 05/28/18 04:25 ALT 57 Units/L (12-78) 05/28/18 04:25 Alkaline Phosphatase 93 Units/L (46-116) 05/28/18 04:25 Total Protein 6.3 g/dL (6.4-8.2) L 05/28/18 04:25 Albumin 3.4 g/dL (3.4-5.0) 05/28/18 04:25 Globulin 2.9 g/dL (2.5-4.5) 05/28/18 04:25 Albumin/Globulin Ratio 1.2 Ratio (1.1-2.1) 05/28/18 04:25 Amylase 18 Units/L (25-115) L 05/24/18 16:05 Lipase 61 Units/L (73-393) L 05/24/18 16:05 Specimen Type Clean catch urine 05/24/18 16:25 Urine Color Yellow (YELLOW) 05/24/18 16:25 Urine Appearance Slightly hazy (CLEAR) 05/24/18 16:25 Urine pH 6.0 (5.0 - 8.0) 05/24/18 16:25 Ur Specific [place] 1.020 (1.000-1.030) 05/24/18 16:25 Urine Protein 1+ (NEGATIVE) 05/24/18 16:25 Urine Glucose (UA) Negative (NEGATIVE) 05/24/18 16:25 Urine Ketones Negative (NEGATIVE) 05/24/18 16:25 Urine Occult Blood Negative (NEGATIVE) 05/24/18 16:25 Urine Nitrite Negative (NEGATIVE) 05/24/18 16:25 Urine Bilirubin Negative (NEGATIVE) 05/24/18 16:25 Urine Urobilinogen 2+ (NORMAL) 05/24/18 16:25 Ur Leukocyte Esterase 1+ (NEGATIVE) 05/24/18 16:25 Urine RBC 0-2 /HPF (NONE SEEN) 05/24/18 16:25 Urine WBC 0-2 /HPF (NONE SEEN) 05/24/18 16:25 Ur Squamous Epith Cells Rare /HPF (NEGATIVE) 05/24/18 16:25 Urine Bacteria Trace /HPF (NEGATIVE) 05/24/18 16:25 Urine Mucus Few /HPF (NEGATIVE) 05/24/18 16:25 Ur Culture Indicated? No/not indicated 05/24/18 16:25 Stool Description 195g,yellow,unformed 05/27/18 17:44 Stl Occult Blood (IFOB) Negative (NEGATIVE) 05/27/18 17:44 - Plan (1) SBO (small bowel obstruction) Status: Acute Plan: IMPROVING, ADVANCE DIET. DR RITCHIE CONSULTING. PAIN AND NAUSEA CONTROL. BP MONITORING. GENTLE IV HYDRATION, AM LABS (2) Abdominal pain Status: Acute Qualifiers: Abdominal location: generalized Qualified Code(s): R10.84 - Generalized abdominal pain (3) Hypertension Status: Acute
[2018-05-29] MEDS: DILAUDID INJ IVP PRN ×2 (01:45→08:04)
[2018-05-29 05:00] LABS: BASOPHILS % (AUTO) 0.4 % (0.2-1.0); EOSINOPHILS # (AUTO) 0.2 x10^3/uL (0.0-0.2); EOSINOPHILS % (AUTO) 4.6 % (0.9-2.9); LYMPHOCYTES # (AUTO) 1.5 X10^3/uL (1.3-2.9); LYMPHOCYTES % (AUTO) 28.7 % (21.0-51.0); MEAN CORPUSCULAR HEMOGLOBIN 30.9 pg (27.0-34.0); MEAN CORPUSCULAR VOLUME 88.3 fL (80.0-100.0); MEAN PLATELET VOLUME 7.3 fL (7.4-11.0); MONOCYTES # (AUTO) 0.4 x10^3/uL (0.3-0.8); MONOCYTES % (AUTO) 8.6 % (0.0-13.0); NEUTROPHILS # (AUTO) 2.9 x10^3/uL (2.2-4.8); NEUTROPHILS % (AUTO) 57.7 % (42.0-75.0); PLATELET COUNT 276 X10^3/uL (150.0-450.0); RED BLOOD COUNT 4.53 X10^6/uL (4.7-6.0); WHITE BLOOD COUNT 5.1 X10^3/uL (3.6-10.0)
[2018-05-29 05:15] LABS: ALANINE AMINOTRANSFERASE 51 Units/L (12-78); ALBUMIN 3.3 g/dL (3.4-5.0); ALKALINE PHOSPHATASE 83 Units/L (46-116); ASPARTATE AMINO TRANSFERASE 22 Units/L (15-37); BLOOD UREA NITROGEN 6 mg/dL (7-18); CALCIUM 8.8 mg/dL (8.5-10.1); CHLORIDE 107 mmol/L (98-107); COR CA(FOR HYPOALB) 9.4 mg/dL (8.5-10.1); CREATININE 0.85 mg/dL (0.70-1.30); SODIUM 142 mmol/L (136-145); TOTAL PROTEIN 6.1 g/dL (6.4-8.2); eGFR NON BLACK RACES > 60 (>60)
[2018-05-29] MEDS: NS + KCL 20 MEQ/L 1,000 ML IV SCH ×2 (05:28→08:03)
[2018-05-29] MEDS: PEPCID 20 MG IV PREMIX* 20 MG/50 ML BAG IV SCH (08:06)
[2018-05-29] MEDS ORDERED: DULCOLAX SUPPOSITORY 10 MG RECTAL ONE (08:55)
[2018-05-29] MEDS: ZITHROMAX INJ 500 MG VIAL 500 MG in NS 250 ML IV 250 ML IV SCH (09:00)
[2018-05-29 09:03] VITALS: BP 111/65
== END 2018-05-29 10:30 | disposition home or self-care (01) | DRG 390 ==
LOC: MED/SURG 14:43 → ER 14:43 → MED/SURG 20:56
PROVIDERS: ADMIT Internal Medicine; ATTEND Internal Medicine
DX: R10.84 Generalized abdominal pain; R11.2 Nausea with vomiting, unspecified; K56.690 Other partial intestinal obstruction; I10 Essential (primary) hypertension
CPT/HCPCS: 36415; 74022; 74177; 80053; 81001; 82150; 82270; 83690; 83735; 85025; 96365; 96367; 96374; 96375; 99284; A4222; S0028; G0378; J0456; J1170; J2270; J2405; J7050; J7512

== ENCOUNTER 2018-08-20 15:17 | Inpatient (IN) ==
[~2018-08-20 15:17] MED LIST changes: +DIPRIVAN VIAL ONE; -FLEXERIL TAB 10 MG ONE; -MOTRIN TAB 800 MG PO ONE; +NEOSTIGMINE INJ ONE; +NORCURON INJ 10 MG VIAL ONE; -PREDNISONE TAB 20 MG PO ONE; +QUELICIN (OR ANECTINE) ONE; +ROBINUL ONE; +SUPRANE ONE; +VERSED ONE; +ZOFRAN INJ 4 MG VIAL ONE
[2018-08-20 15:24] VITALS: BMI 36.6
[2018-08-20] MEDS ORDERED: NS 1000 ML 1,000 ML ONE ×2 (15:28→19:53)
[2018-08-20] MEDS ORDERED: PEPCID 20 MG IV PREMIX* 20 MG/50 ML BAG ONE (15:41)
[2018-08-20] MEDS ORDERED: NS 1000 ML 1,000 ML IV ONE (15:41)
[2018-08-20] MEDS ORDERED: ZOFRAN INJ 4 MG VIAL ONE (15:42)
[2018-08-20] MEDS ORDERED: PEPCID 20 MG IV PREMIX* 20 MG/50 ML BAG IV ONE (15:47)
[2018-08-20] MEDS ORDERED: ZOFRAN INJ 4 MG VIAL IVP ONE (15:48)
--- NOTE | 2018-08-20 15:54 | DR.N/VMALE ---
HPI Time Seen Time Seen by Provider: 08/20/18 15:40 Primary Care Physician Primary Care Physician: SAY LIN HPI Comment HPI Comment: PATIENT IS 48YR OLD WHITE MALE HERE IN ED WITH INCREASING UPPER ABDOMINAL SHARP BURNING PAIN FOR SEVERAL HOURS. PATIENT FEEL WEAK AND IS NOT ABLE TO HOLD DOWN MEDICATIONS OR FLUID. HISTORY BOWEL OBSTRUCTION. RECENT EGD DONE, MILD EROSIONS AND REFLUX WAS NOTED. NO ULCERS. DENIES DIARRHEA. Complaints Chief Complaint Doctors Comments: ABDOMINAL PAIN, NAUSEA AND VOMITING SINCE 01:30AM. Chief Complaint:: PT C/O N/V SINCE 130 AM, BILE AND ABD PAIN ,BR Reviewed Nurses Notes Reviewed: Yes Source History Provided: Patient and Family Member Mode of Arrival Mode of Arrival: Ambulatory Timing Onset of Chief Complaint: 08/20/18 Context Onset: Spontaneous Recent: None History of: None Quality Quality: Food Particles (GASTRIC FLUID) Associated Signs and Symptoms Abdominal Pain Quality: Burning and Sharp Abdominal Pain Location: Epigastric, RUQ and LUQ Symptoms: Abdominal Pain PMH PMH Past Medical History: Yes Past Medical History: GERD and Hypertension Past Surgical History: Yes Surgical History: Appendectomy, Cholecystectomy and Ortho Surgery Past Surgical History Comment: ABD, SURGERY Family History History of Family Medical Conditions: Yes Family Medical History: Cancer, [place] and Hypertension Social History Does patient currently use any type of tobacco product: No Have you used tobacco products in the last 12 months: No Type of Tobacco Use: None Does any household member use tobacco: No Alcohol Use: None Do you use any recreational Drugs:: No Lives With: Family Lives Where: Home infectious screening In the last 2 months have you had wt loss of >10#?: NO Have you had fever, night sweats or hemotysis?: No Have you traveled outside the country in the last 6 months?: No Isolation: Standard ROS Review of Systems Constitutional: See HPI, Weakness and Fatigue; negative Fever Eyes: No Symptoms Reported and See HPI; negative Eye Pain, Blurred Vision and Discharge ENTM: No Symptoms Reported and See HPI; negative Ear Pain, Nose Discharge, Nose Congestion and Throat Pain Respiratoy: No Symptoms Reported and See HPI; negative Short of Breath and Wheezing Cardiovascular: No Symptoms Reported and See HPI; negative Chest Pain and Edema Gastrointestinal/Abdominal: See HPI, Abdominal Pain, Nausea and Vomiting Genitourinary: No Symptoms Reported and See HPI; negative Dysuria, Frequency and Hematuria Neurological: See HPI and Weakness; negative Headache and Dizziness Musculoskeletal: See HPI, Back Pain and Muscle Pain Integumentary: See HPI; negative Change in Color, Rash and Juandice Hematologic/Lymphatic: See HPI; negative Easy Bleeding, Easy Bruising, Swollen Glands and Lymphadenopathy Endocrine: See HPI, Increased Thirst and Decreased Appetite; negative Increased Urine Psychiatric: No Symptoms Reported and See HPI All Other Systems: Reviewed and Negative PE Vital Signs Vitals: Temperature 99.2 F Pulse Rate [Right Brachial] 101 Pulse Rate [Left Brachial] 88 Pulse Rate 87 Respiratory Rate 20 Blood Pressure [Right Arm] 132/83 Blood Pressure [Left Arm] 118/75 Blood Pressure 140/83 O2 Sat by Pulse Oximetry 94 General Limitations: No Limitations General Appearance: Alert and In No Apparent Distress Head Head Exam: Normal Inspection and Atraumatic Eyes Eye exam: Normal Appearance and PERRL; negative Scleral Icterus and Conjunctival Injection ENT ENT Exam: Normal Exam, Normal Oropharynx, Normal External Ear Exam and TM's Normal Bilaterally Neck Neck Exam: Normal Inspection and Trachea Midline; negative Tenderness and Lymphadenopathy Chest Chest Inspection: Normal Inspection and Symmetric Chest Wall Rise; negative Tenderness Respiratory Respiratory Exam: Normal Lung Sounds Bilat; negative Accessory Muscle Use, Chest Wall Tenderness and Respiratory Distress Respiratory Exam: Bilateral: Clear to Auscultation Cardiovascular Cardiovascular Exam: Regular Rate, Normal Rhythm and Normal Heart Sounds; negative Systolic Murmur and Diastolic Murmur Abdominal Exam Abdominal Exam: Normal Bowel Sounds, Soft and Tenderness Abdominal Tenderness: RUQ, LUQ, Epigastrium and Moderate Rectal Rectal Exam: Deferred Exam: Male: Deferred Extremities Extremities Exam: Normal Inspection, Normal Capillary Refill and Edema; negative Tenderness and Calf Tenderness Back Back Exam: Normal Inspection; negative Tenderness, Paraspinal Tenderness and Vertebral Tenderness Psychiatric Psychiatric Exam: Normal Affect and Normal Mood Skin Skin Exam: Dry MDM Additional Information Obtained Additional Information Obtained From: Old Records and Family Differential Diagnosis Differential Diagnosis: Considerations may Include:: Bowel Obstruction, Gastritis, Gastroenteritis, Pancreatitis, PUD, Urinary Tract Infection and Urolithiasis COURSE Treatment Treatment: SEE ORDERS. Consultation Consultation Comments: SURGERY CONSULT. DR. SHIN IN ED AND EVALUATED PATIENT. DR. DEAL WILL ADMIT PATIENT. HAVE DISCUSS PATIENT WITH HIM. ADMISSION ORDERS DONE. Education/Counseling Education/Counseling: Patient and Family Educated On: Diagnosis ROR Labs Reviewed Laboratory Results Reviewed?: Yes Result Diagrams: 08/21/18 05:15 08/21/18 12:44 Laboratory: WBC 7.5 X10^3/uL (3.6-10.0) 08/21/18 05:15 RBC 4.81 X10^6/uL (4.7-6.0) 08/21/18 05:15 Hgb 14.7 g/dL (13.5-18.0) D 08/21/18 05:15 Hct 41.7 % (42.0-54.0) L 08/21/18 05:15 MCV 86.7 fL (80.0-100.0) 08/21/18 05:15 MCH 30.5 pg (27.0-34.0) 08/21/18 05:15 MCHC 35.2 g/dL (33.0-35.0) H 08/21/18 05:15 RDW 12.9 % (11.6-16.5) 08/21/18 05:15 Plt Count 195 X10^3/uL (150.0-450.0) 08/21/18 05:15 Plt Count Comment Adequate (ADEQUATE) 08/20/18 15:34 MPV 7.7 fL (7.4-11.0) 08/21/18 05:15 Neut % (Auto) 85.6 % (42.0-75.0) H 08/21/18 05:15 Lymph % (Auto) 6.1 % (21.0-51.0) L 08/21/18 05:15 [place] % (Auto) 7.8 % (0.0-13.0) 08/21/18 05:15 Eos % (Auto) 0.4 % (0.9-2.9) L 08/21/18 05:15 Baso % (Auto) 0.1 % (0.2-1.0) L 08/21/18 05:15 Neut # (Auto) 6.4 x10^3/uL (2.2-4.8) H 08/21/18 05:15 Lymph # (Auto) 0.5 X10^3/uL (1.3-2.9) L 08/21/18 05:15 [place] # (Auto) 0.6 x10^3/uL (0.3-0.8) 08/21/18 05:15 Eos # (Auto) 0.0 x10^3/uL (0.0-0.2) 08/21/18 05:15 Baso # (Auto) 0.0 X10^3/uL (0.0-0.1) 08/21/18 05:15 Absolute Nucleated RBC 0.1 /100WBC 08/21/18 05:15 Total Counted 100 08/20/18 15:34 Neutrophils % (Manual) 92 % (39-76) H 08/20/18 15:34 Lymphocytes % (Manual) 7 % (13-43) L 08/20/18 15:34 Monocytes % (Manual) 1 % (4-9) L 08/20/18 15:34 Plt Morphology Comment Normal (NORMAL) 08/20/18 15:34 RBC Morphology Normal (NORMAL) 08/20/18 15:34 Sodium 143 mmol/L (136-145) 08/21/18 05:15 Corrected Sodium 144 mmol/L (136-145) 08/21/18 05:15 Potassium 3.1 mmol/L (3.5-5.1) L 08/21/18 12:44 Chloride 107 mmol/L (98-107) 08/21/18 05:15 Carbon Dioxide 26.9 mmol/L (21-32) 08/21/18 05:15 BUN 14 mg/dL (7-18) 08/21/18 05:15 Creatinine 0.88 mg/dL (0.70-1.30) 08/21/18 05:15 Est GFR (MDRD) Af Amer > 60 (>60) 08/21/18 05:15 Est GFR (MDRD) Non-Af > 60 (>60) 08/21/18 05:15 Glucose 140 mg/dL (65-99) H 08/21/18 05:15 Calcium 7.7 mg/dL (8.5-10.1) L 08/21/18 05:15 Corrected Calcium 8.3 mg/dL (8.5-10.1) L 08/21/18 05:15 Magnesium 1.9 mg/dL (1.7-2.9) 08/21/18 05:15 Total Bilirubin 1.20 mg/dL (0.2-1.0) H 08/21/18 05:15 AST 17 Units/L (15-37) 08/21/18 05:15 ALT 26 Units/L (12-78) 08/21/18 05:15 Alkaline Phosphatase 55 Units/L (46-116) 08/21/18 05:15 Total Protein 6.2 g/dL (6.4-8.2) L 08/21/18 05:15 Albumin 3.3 g/dL (3.4-5.0) L 08/21/18 05:15 Globulin 2.9 g/dL (2.5-4.5) 08/21/18 05:15 Albumin/Globulin Ratio 1.1 Ratio (1.1-2.1) 08/21/18 05:15 Amylase 17 Units/L (25-115) L 08/20/18 15:34 Lipase 56 Units/L (73-393) L 08/20/18 15:34 Specimen Type Catherized urine 08/21/18 11:01 Urine Color Yellow (YELLOW) 08/21/18 11:01 Urine Appearance Clear (CLEAR) 08/21/18 11:01 Urine pH 6.5 (5.0 - 8.0) 08/21/18 11:01 Ur Specific [place] 1.015 (1.000-1.030) 08/21/18 11:01 Urine Protein 1+ (NEGATIVE) 08/21/18 11:01 Urine Glucose (UA) Negative (NEGATIVE) 08/21/18 11:01 Urine Ketones Negative (NEGATIVE) 08/21/18 11:01 Urine Occult Blood 2+ (NEGATIVE) 08/21/18 11:01 Urine Nitrite Negative (NEGATIVE) 08/21/18 11:01 Urine Bilirubin Negative (NEGATIVE) 08/21/18 11:01 Urine Urobilinogen Normal (NORMAL) 08/21/18 11:01 Ur Leukocyte Esterase Negative (NEGATIVE) 08/21/18 11:01 Urine RBC 0-2 /HPF (NONE SEEN) 08/21/18 11:01 Urine WBC 0-2 /HPF (NONE SEEN) 08/21/18 11:01 Ur Squamous Epith Cells Few /HPF (NEGATIVE) 08/21/18 11:01 Ur Transition Epith Cell Few /HPF (NEGATIVE) 08/21/18 11:01 Amorphous Sediment Trace /HPF (NEGATIVE) 08/21/18 11:01 Urine Bacteria Negative /HPF (NEGATIVE) 08/21/18 11:01 Ur Culture Indicated? No/not indicated 08/21/18 11:01 XRAY XRAY Interpreted by: Radiologist XRAY Findings: REPORT NOTED AND DISCUSS WITH PATIENT. Opioid Opioid Risk Tool Total: 0 Total Score Risk Category: Low Risk Copyright: Harris DOWNEY predicting aberrant behaviors Diagnosis Discharge Problem: Partial obstruction of small intestine Abdominal pain Qualifiers: Abdominal location: upper abdomen, unspecified Qualified Code(s): R10.10 - Upper abdominal pain, unspecified
[2018-08-20 16:08] LABS: BASOPHILS % (AUTO) 0.1 % (0.2-1.0); EOSINOPHILS % (AUTO) 0.1 % (0.9-2.9); HEMATOCRIT 49.6 % (42.0-54.0); HEMOGLOBIN 17.4 g/dL (13.5-18.0); LYMPHOCYTES # (AUTO) 0.5 X10^3/uL (1.3-2.9); LYMPHOCYTES % (AUTO) 4.3 % (21.0-51.0); MEAN CORPUSCULAR HEMOGLOBIN 30.5 pg (27.0-34.0); MEAN CORPUSCULAR HGB CONC 35.1 g/dL (33.0-35.0); MEAN CORPUSCULAR VOLUME 86.8 fL (80.0-100.0); MEAN PLATELET VOLUME 8.2 fL (7.4-11.0); MONOCYTES # (AUTO) 0.4 x10^3/uL (0.3-0.8); MONOCYTES % (AUTO) 3.7 % (0.0-13.0); NEUTROPHILS # (AUTO) 10.1 x10^3/uL (2.2-4.8); NEUTROPHILS % (AUTO) 91.8 % (42.0-75.0); PLATELET COUNT 265 X10^3/uL (150.0-450.0); RED BLOOD COUNT 5.71 X10^6/uL (4.7-6.0); RED CELL DISTRIBUTION WIDTH 13.3 % (11.6-16.5)
[2018-08-20 16:12] LABS: ALANINE AMINOTRANSFERASE 35 Units/L (12-78); ALBUMIN 4.3 g/dL (3.4-5.0); ALKALINE PHOSPHATASE 71 Units/L (46-116); AMYLASE 17 Units/L (25-115); ASPARTATE AMINO TRANSFERASE 31 Units/L (15-37); BLOOD UREA NITROGEN 18 mg/dL (7-18); CALCIUM 9.8 mg/dL (8.5-10.1); CARBON DIOXIDE 25.6 mmol/L (21-32); CHLORIDE 104 mmol/L (98-107); COR NA(FOR HYPERGLY) 141 mmol/L (136-145); CREATININE 1.09 mg/dL (0.70-1.30); LIPASE 56 Units/L (73-393); SODIUM 140 mmol/L (136-145); TOTAL PROTEIN 7.9 g/dL (6.4-8.2); eGFR NON BLACK RACES > 60 (>60)
[2018-08-20 16:14] LABS: PLATELET MORPHOLOGY COMMENT NORMAL (NORMAL)
--- NOTE | 2018-08-20 17:16 | RAD ---
Chest and abdomen, three views Indication: Nausea and vomiting Comparison: 05/28/2018 Findings: Heart is normal in size. No focal infiltrate or significant effusion is identified. No pneumothorax. There are gas-filled mildly dilated small bowel loops throughout the upper abdomen, measuring up to 4.7 cm in diameter with relative paucity of distal bowel gas within the colon and rectum, concerning for small bowel obstruction. No free air or pneumatosis is identified. No pathologic calcifications seen. Prior cholecystectomy noted. Imaged osseous structures are grossly intact. Impression: No acute abdominal abnormality. Bowel gas pattern concerning for small bowel obstruction as above. Clinical correlation as well as contrast enhanced CT with oral contrast should be considered for further evaluation if indicated. Reported By:
[2018-08-20] MEDS ORDERED: DEMEROL INJ IVP ONE (18:15)
[2018-08-20] MEDS ORDERED: LEVSIN/MAALOX/LIDOC VISC PO ONE (18:15)
[2018-08-20] MEDS ORDERED: LEVSIN/MAALOX/LIDOC VISC ONE (18:17)
[2018-08-20] MEDS ORDERED: DEMEROL INJ ONE (18:17)
[2018-08-20] MEDS ORDERED: NS 100 ML IV 100 ML ONE (19:13)
[2018-08-20] MEDS: NS 1000 ML 1,000 ML IV SCH (19:56)
--- NOTE | 2018-08-20 20:55 | CT ---
CT abdomen and pelvis with contrast Indication: Nausea and vomiting Technique: Helical CT images of the abdomen and pelvis were obtained with IV contrast. Reformatted images in the coronal and sagittal planes were also generated for review. Comparison: 05/24/2018 Findings: Lung bases are clear of acute infiltrates. No aggressive osseous lesions. Gallbladder is absent. The liver, spleen, pancreas, adrenals and kidneys are unremarkable. There are multiple borderline dilated fluid and gas filled small bowel loops throughout the upper abdomen, measuring up to 3.2 cm in diameter. The distal small bowel is fluid-filled and relatively collapsed in comparison, although no definite transition point is identified. Liquid stool is present throughout the colon and rectum. There is no bowel inflammation. The appendix is not identified and may be absent. The IVC, abdominal aorta and urinary bladder are normal. The prostate is not enlarged. No free air, free fluid or bulky lymphadenopathy is identified. Impression: Findings either representing low-grade partial distal small bowel obstruction or generalized ileus. Correlate clinically. Reported By:
[2018-08-20] MEDS ORDERED: PROTONIX INJ 40 MG VIAL IVP SCH (22:00)
[2018-08-20] MEDS: DEMEROL INJ IVP PRN (22:25)
[2018-08-20] MEDS: ZOFRAN INJ 4 MG VIAL IVP PRN (22:25)
[2018-08-20] MEDS: KLONOPIN TAB 0.5 MG PO SCH (22:27)
--- NOTE | 2018-08-21 00:01 | DR.PROGNOT ---
Hospital Progress Notes - Progress Note for Day of: Progress Note Date: 08/20/18 - Chief Complaint Chief Complaint: pt was seen in the ER with another episode of partial SBO . still having abdominal pain . nausea anf vomiting . CT and Abdominal xray showed partial SBO. - Past Medical Family Social History Past Med/Fam/Surg Hx: No changes since H&P Allergies: Allergies No Known Drug Allergies [NKDA] Allergy (Verified 08/20/18 15:24) - Review Of Systems ROS: No change since H&P - Vital Signs Vital Signs: Temperature 99.2 F Pulse Rate [Left Brachial] 88 Pulse Rate 119 Respiratory Rate 18 Blood Pressure [Right Arm] 143/87 Blood Pressure [Left Arm] 145/87 Blood Pressure 137/95 O2 Sat by Pulse Oximetry 96 - Physical Exam Oriented: Normal Eyes: negative: Normal Ear: Normal Respiratory: Left. negative: Normal Cardiovascular: Tachycardia. negative: Normal GI: Tenderness: Diffuse (diffuse tenderness in the mid abdomen with distention , BS+), Periumbilical Skin: Normal Musculoskeletal: Normal Psychiatric: Normal - Laboratory and Diagnostics Result Diagrams: 08/20/18 15:34 08/20/18 15:34 Labs: Laboratory WBC 11.0 X10^3/uL (3.6-10.0) H 08/20/18 15:34 RBC 5.71 X10^6/uL (4.7-6.0) 08/20/18 15:34 Hgb 17.4 g/dL (13.5-18.0) 08/20/18 15:34 Hct 49.6 % (42.0-54.0) 08/20/18 15:34 MCV 86.8 fL (80.0-100.0) 08/20/18 15:34 MCH 30.5 pg (27.0-34.0) 08/20/18 15:34 MCHC 35.1 g/dL (33.0-35.0) H 08/20/18 15:34 RDW 13.3 % (11.6-16.5) 08/20/18 15:34 Plt Count 265 X10^3/uL (150.0-450.0) 08/20/18 15:34 Plt Count Comment Adequate (ADEQUATE) 08/20/18 15:34 MPV 8.2 fL (7.4-11.0) 08/20/18 15:34 Neut % (Auto) 91.8 % (42.0-75.0) H 08/20/18 15:34 Lymph % (Auto) 4.3 % (21.0-51.0) L 08/20/18 15:34 [place] % (Auto) 3.7 % (0.0-13.0) 08/20/18 15:34 Eos % (Auto) 0.1 % (0.9-2.9) L 08/20/18 15:34 Baso % (Auto) 0.1 % (0.2-1.0) L 08/20/18 15:34 Neut # (Auto) 10.1 x10^3/uL (2.2-4.8) H 08/20/18 15:34 Lymph # (Auto) 0.5 X10^3/uL (1.3-2.9) L 08/20/18 15:34 [place] # (Auto) 0.4 x10^3/uL (0.3-0.8) 08/20/18 15:34 Eos # (Auto) 0.0 x10^3/uL (0.0-0.2) 08/20/18 15:34 Baso # (Auto) 0.0 X10^3/uL (0.0-0.1) 08/20/18 15:34 Absolute Nucleated RBC 0.5 /100WBC 08/20/18 15:34 Total Counted 100 08/20/18 15:34 Neutrophils % (Manual) 92 % (39-76) H 08/20/18 15:34 Lymphocytes % (Manual) 7 % (13-43) L 08/20/18 15:34 Monocytes % (Manual) 1 % (4-9) L 08/20/18 15:34 Plt Morphology Comment Normal (NORMAL) 08/20/18 15:34 RBC Morphology Normal (NORMAL) 08/20/18 15:34 Sodium 140 mmol/L (136-145) 08/20/18 15:34 Corrected Sodium 141 mmol/L (136-145) 08/20/18 15:34 Potassium 3.6 mmol/L (3.5-5.1) 08/20/18 15:34 Chloride 104 mmol/L (98-107) 08/20/18 15:34 Carbon Dioxide 25.6 mmol/L (21-32) 08/20/18 15:34 BUN 18 mg/dL (7-18) 08/20/18 15:34 Creatinine 1.09 mg/dL (0.70-1.30) 08/20/18 15:34 Est GFR (MDRD) Af Amer > 60 (>60) 08/20/18 15:34 Est GFR (MDRD) Non-Af > 60 (>60) 08/20/18 15:34 Glucose 144 mg/dL (65-99) H 08/20/18 15:34 Calcium 9.8 mg/dL (8.5-10.1) 08/20/18 15:34 Corrected Calcium TNP 08/20/18 15:34 Total Bilirubin 1.90 mg/dL (0.2-1.0) H 08/20/18 15:34 AST 31 Units/L (15-37) 08/20/18 15:34 ALT 35 Units/L (12-78) 08/20/18 15:34 Alkaline Phosphatase 71 Units/L (46-116) 08/20/18 15:34 Total Protein 7.9 g/dL (6.4-8.2) 08/20/18 15:34 Albumin 4.3 g/dL (3.4-5.0) 08/20/18 15:34 Globulin 3.6 g/dL (2.5-4.5) 08/20/18 15:34 Albumin/Globulin Ratio 1.2 Ratio (1.1-2.1) 08/20/18 15:34 Amylase 17 Units/L (25-115) L 08/20/18 15:34 Lipase 56 Units/L (73-393) L 08/20/18 15:34 - Assessment and Plan 1: recurrent SBO . will keep NPO , IVF and repeat abdominal Xray . if no improvement will prceed with exploration ..
[2018-08-21] MEDS: DEMEROL INJ IVP PRN ×2 (03:00→07:00)
[2018-08-21] MEDS: NS 1000 ML 1,000 ML IV SCH ×2 (03:03→06:00)
[2018-08-21 05:43] LABS: BASOPHILS % (AUTO) 0.1 % (0.2-1.0); EOSINOPHILS % (AUTO) 0.4 % (0.9-2.9); HEMATOCRIT 41.7 % (42.0-54.0); HEMOGLOBIN 14.7 g/dL (13.5-18.0); LYMPHOCYTES # (AUTO) 0.5 X10^3/uL (1.3-2.9); LYMPHOCYTES % (AUTO) 6.1 % (21.0-51.0); MEAN CORPUSCULAR HEMOGLOBIN 30.5 pg (27.0-34.0); MEAN CORPUSCULAR HGB CONC 35.2 g/dL (33.0-35.0); MEAN CORPUSCULAR VOLUME 86.7 fL (80.0-100.0); MEAN PLATELET VOLUME 7.7 fL (7.4-11.0); MONOCYTES # (AUTO) 0.6 x10^3/uL (0.3-0.8); MONOCYTES % (AUTO) 7.8 % (0.0-13.0); NEUTROPHILS # (AUTO) 6.4 x10^3/uL (2.2-4.8); NEUTROPHILS % (AUTO) 85.6 % (42.0-75.0); PLATELET COUNT 195 X10^3/uL (150.0-450.0); RED BLOOD COUNT 4.81 X10^6/uL (4.7-6.0); RED CELL DISTRIBUTION WIDTH 12.9 % (11.6-16.5); WHITE BLOOD COUNT 7.5 X10^3/uL (3.6-10.0)
[2018-08-21 05:56] LABS: ALANINE AMINOTRANSFERASE 26 Units/L (12-78); ALBUMIN 3.3 g/dL (3.4-5.0); ALKALINE PHOSPHATASE 55 Units/L (46-116); ASPARTATE AMINO TRANSFERASE 17 Units/L (15-37); BLOOD UREA NITROGEN 14 mg/dL (7-18); CALCIUM 7.7 mg/dL (8.5-10.1); CARBON DIOXIDE 26.9 mmol/L (21-32); CHLORIDE 107 mmol/L (98-107); COR CA(FOR HYPOALB) 8.3 mg/dL (8.5-10.1); COR NA(FOR HYPERGLY) 144 mmol/L (136-145); CREATININE 0.88 mg/dL (0.70-1.30); SODIUM 143 mmol/L (136-145); TOTAL PROTEIN 6.2 g/dL (6.4-8.2); eGFR NON BLACK RACES > 60 (>60)
[2018-08-21] MEDS ORDERED: K-RIDER 10 MEQ/NS 100 ML 10 MEQ/100 ML BAG IV PRN (06:03)
[2018-08-21] MEDS ORDERED: POTASSIUM CHL 60 MEQ/NS 0.45% 500 ML IV PRN (06:03)
[2018-08-21] MEDS ORDERED: KLOR-CON PO PRN (06:03)
[2018-08-21] MEDS ORDERED: MICRO K EXTEN CAP 10 MEQ PO PRN (06:03)
[2018-08-21] MEDS ORDERED: K-DUR TAB 20 MEQ PO PRN (06:03)
[2018-08-21] MEDS ORDERED: POTASSIUM CHLORIDE LIQ 20 MEQ UDC PO PRN (06:03)
[2018-08-21] MEDS ORDERED: POTASSIUM CHL 40 MEQ/NS 0.45% 500 ML IV PRN (06:03)
[2018-08-21] MEDS: ZOFRAN INJ 4 MG VIAL IVP PRN (07:01)
--- NOTE | 2018-08-21 07:45 | RAD ---
History: Partial small bowel obstruction Study: Three views of supine abdomen, portable Comparison: Yesterday Findings: Gaseous distention of small bowel is slightly improved there is gas in nondistended colon. There are cholecystectomy clips. There is no abnormal calcification. Impression: Slight improvement in the amount of gaseous distention of small bowel implying improving findings of small bowel obstruction Reported By:
[2018-08-21] MEDS: ASPIRIN EC 81 MG PO SCH (08:28)
[2018-08-21] MEDS: COZAAR PO SCH (08:28)
[2018-08-21] MEDS: HYDROCHLOROTHIAZIDE 25 MG TAB PO SCH (08:28)
[2018-08-21] MEDS: NORVASC TAB 10 MG PO SCH (08:28)
[2018-08-21] MEDS: PEPCID 20 MG IV PREMIX* 20 MG/50 ML BAG IV SCH ×2 (08:29→20:14)
[2018-08-21] MEDS: LOPRESSOR TAB 25 MG PO SCH ×2 (08:29→20:14)
[2018-08-21] MEDS: MAGNESIUM SULFATE 1 GRAM/100 mL PREMIX 1 GM/100 ML BAG IV PRN ×2 (08:32→13:40)
[2018-08-21] MEDS ORDERED: PHARMACY CONSULT - DOSE _____ XX SCH (09:00)
[2018-08-21] MEDS ORDERED: DILAUDID INJ IVP PRN ×2 (09:37→12:40)
[2018-08-21] MEDS ORDERED: LR 1000 ML IV 1,000 ML ONE ×2 (10:17→11:37)
[2018-08-21] MEDS ORDERED: DILAUDID INJ ONE (10:24)
[2018-08-21] MEDS ORDERED: FENTANYL INJ 250 mcg ONE (10:24)
[2018-08-21] MEDS ORDERED: ANCEF 1 GRAM IV PREMIX* 2 G/100 ML BAG IV ONE (10:31)
[2018-08-21] MEDS ORDERED: BACITRACIN VIAL ONE (10:58)
[2018-08-21 11:27] LABS: BILIRUBIN,URINE NEGATIVE (NEGATIVE); BLOOD/HEMOGLOBIN,URINE 2+ (NEGATIVE); GLUCOSE, URINE NEGATIVE (NEGATIVE); KETONES,URINE NEGATIVE (NEGATIVE); LEUKOCYTE ESTERASE ,URINE NEGATIVE (NEGATIVE); NITRITES,URINE NEGATIVE (NEGATIVE); PH,URINE 6.5 (5.0 - 8.0); PROTEIN,URINE 1+ (NEGATIVE); UROBILINOGEN,URINE NORMAL (NORMAL)
[2018-08-21 11:33] LABS: APPEARANCE,URINE CLEAR (CLEAR); COLOR,URINE YELLOW (YELLOW)
[2018-08-21] MEDS ORDERED: BACTROBAN TOPICAL OINT ONE (11:47)
[2018-08-21 12:05] LABS: RBC,URINE 0-2 /HPF (NONE SEEN); SQUAMOUS EPITHELIAL CELL,UR FEW /HPF (NEGATIVE)
[2018-08-21 12:06] LABS: AMORPHOUS SEDIMENT,UR TRACE /HPF (NEGATIVE); BACTERIA,URINE NEGATIVE /HPF (NEGATIVE); TRANSITIONAL EPI CELLS,URINE FEW /HPF (NEGATIVE)
--- NOTE | 2018-08-21 12:39 | OR.GENERIC ---
Post-Op Note Generic - Post-Op Note Operative Report: exploratory laparotomy , lysis of adhesions , release of mechanical SBO .. findings : almost complete SBO with tight adhesive bands in the mid abdomen . EBL 120 cc . pt was stable . to keep NPO , IVF , DVT prophylaxis
[2018-08-21] MEDS ORDERED: REGLAN INJ 10 MG VIAL IVP PRN (12:40)
[2018-08-21] MEDS ORDERED: BENADRYL INJ 50 MG VIAL IVP PRN (12:40)
[2018-08-21] MEDS ORDERED: ZOFRAN INJ 4 MG VIAL IVP PRN (12:40)
[2018-08-21] MEDS ORDERED: PHENERGAN INJ 25 MG IM PRN (12:40)
--- NOTE | 2018-08-21 12:48 | DR.H&P ---
H&P - History & Physical for Day of: H&P Date: 08/20/18 - Chief Complaint Chief Complaint: ABDOMINAL PAIN, [place] - History of Present Illness History of Present Illness: 48 WM ER ADMISSION AFTER PRESENTING WITH CO INTRACTABLE ABDOMINAL PAIN WITH N/V WAKING HIM UP FROM SLEEP ABOUT 1 AM. PT HAS PMH OF FREQUENT BOWEL OBSTRUCTION, INTRABDOMINAL ADHESIONS. PT HAS PMH OF HTN, OA. PT CT ABD PELVIS IN ER REVEALED SBO. PT ADMITTED FOR TREATMENT AND EV ALUATION OF ACUTE ILLNESS, SURGICAL CONSULT. - Past Medical History Past Medical History: Arthritis, GERD, Hypertension Additional Medical History: PARTIAL SMALL BOWEL OBSTRUCTION 4 MONTHS AGO WITH HOSPITALIZATION. - Past Surgical History Surgical History: Appendectomy, Cholecystectomy, Ortho Surgery Additional Surgical History: Lysis of adhesions for SBO. - Family History Family Medical History: Cancer, [place], Hypertension - Social History Does patient currently use any type of tobacco product: No Have you used tobacco products in the last 12 months: No Type of Tobacco Use: None Does any household member use tobacco: No Alcohol Use: Occasionally Drug Use: None - Medications Home Medications: No Known Drug Allergies [NKDA] Allergy (Verified 08/20/18 15:24) - Review of Systems Constitutional: No Symptoms Reported Eyes: No Symptoms Reported ENT: No Symptoms Reported Respiratory: No Symptoms Reported Cardiovascular: No Symptoms Reported Gastrointestinal: Nausea, Vomiting, Abdominal Pain Genitourinary: No Symptoms Reported Musculoskeletal: Back Pain Skin: No Symptoms Reported Neurological: No Symptoms Reported - Physical Exam Vital Signs: Temperature 97.0 F Pulse Rate [Left Brachial] 80 Pulse Rate 91 Respiratory Rate 20 Blood Pressure [Right Arm] 143/87 Blood Pressure [Left Arm] 118/75 Blood Pressure 144/78 O2 Sat by Pulse Oximetry 98 Oriented: Normal Eyes: Normal, Diplopia Nose: Normal Throat: Normal Respiratory: Clear Throughout Cardiovascular: Normal : Normal Auscultation: Bowel Sounds: High Pitched Palpation: Other (MILD DIFFUSE DISTENSION) Tenderness: Diffuse Skin: Normal Musculoskeletal: Back:Lumbar Psychiatric: Anxiety Affect: Anxious Speech Pattern: Clear, Appropriate - Assessment/Plan (1) Small bowel obstruction Status: Acute Plan: ADMIT, NPO. PAIN AND NAUSEA CONTROL. IV HYDRATION, SURGICAL CONSULT (2) Vomiting Status: Acute (3) Abdominal pain Qualifiers: Abdominal location: generalized Qualified Code(s): R10.84 - Generalized abdominal pain Status: Acute (4) Hypertension Status: Chronic - Allergies Allergies/Adverse Reactions: Allergies Allergy/AdvReac Type Severity Reaction Status Date / Time No Known Drug Allergies Allergy Verified 08/20/18 15:24 [NKDA]
--- NOTE | 2018-08-21 12:58 | PCM.PROG ---
Progress Note - Progress Note for Day of Date of Exam: 08/21/18 - Subjective Subjective: 48 WM ER ADMISSION LAST PM WITH SBO. PT CONTINUES WITH CO DIFFUSE ABDOMINAL PAIN AND TENDERNESS THIS AM . ABD DISTENDED. PT IS NPO, DR SHIN IS CONSULTING. DC DEMEROL DUE TO PAIN BEING UNCONTROLLED, STARTED DILAUDID. WILL CONTINUE BP MONITORING. - Past Medical Family Social History Past Med/Fam/Surg Hx: No changes since H&P Allergies: Allergies No Known Drug Allergies [NKDA] Allergy (Verified 08/20/18 15:24) - Review of Systems ROS: No change since H&P - Vital Signs and I&O's Vital Signs: Temperature 97.0 F Pulse Rate [Left Brachial] 80 Pulse Rate 91 Respiratory Rate 20 Blood Pressure [Right Arm] 143/87 Blood Pressure [Left Arm] 118/75 Blood Pressure 142/86 O2 Sat by Pulse Oximetry 96 Intake and Output: Intake & Output 08/19/18 08/20/18 08/21/18 08/22/18 11:59 11:59 11:59 11:59 Intake Total 2120 / 2120 1110 / 1110 Output Total 2400 / 2400 750 / 750 Balance -280 / -280 360 / 360 - Physical Exam Oriented: Normal Eyes: Normal, Diplopia Ear: Normal Nose: Normal Throat: Normal Respiratory: Normal Cardiovascular: Normal : Normal Auscultation: Bowel Sounds: High Pitched Tenderness: Diffuse Skin: Normal Musculoskeletal: Back:Lumbar Psychiatric: Anxiety Mood Description: Calm Affect: Anxious Speech Pattern: Clear, Appropriate - Laboratory and Diagnostics Result Diagrams: 08/21/18 05:15 08/21/18 05:15 Labs: Laboratory WBC 7.5 X10^3/uL (3.6-10.0) 08/21/18 05:15 RBC 4.81 X10^6/uL (4.7-6.0) 08/21/18 05:15 Hgb 14.7 g/dL (13.5-18.0) D 08/21/18 05:15 Hct 41.7 % (42.0-54.0) L 08/21/18 05:15 MCV 86.7 fL (80.0-100.0) 08/21/18 05:15 MCH 30.5 pg (27.0-34.0) 08/21/18 05:15 MCHC 35.2 g/dL (33.0-35.0) H 08/21/18 05:15 RDW 12.9 % (11.6-16.5) 08/21/18 05:15 Plt Count 195 X10^3/uL (150.0-450.0) 08/21/18 05:15 Plt Count Comment Adequate (ADEQUATE) 08/20/18 15:34 MPV 7.7 fL (7.4-11.0) 08/21/18 05:15 Neut % (Auto) 85.6 % (42.0-75.0) H 08/21/18 05:15 Lymph % (Auto) 6.1 % (21.0-51.0) L 08/21/18 05:15 [place] % (Auto) 7.8 % (0.0-13.0) 08/21/18 05:15 Eos % (Auto) 0.4 % (0.9-2.9) L 08/21/18 05:15 Baso % (Auto) 0.1 % (0.2-1.0) L 08/21/18 05:15 Neut # (Auto) 6.4 x10^3/uL (2.2-4.8) H 08/21/18 05:15 Lymph # (Auto) 0.5 X10^3/uL (1.3-2.9) L 08/21/18 05:15 [place] # (Auto) 0.6 x10^3/uL (0.3-0.8) 08/21/18 05:15 Eos # (Auto) 0.0 x10^3/uL (0.0-0.2) 08/21/18 05:15 Baso # (Auto) 0.0 X10^3/uL (0.0-0.1) 08/21/18 05:15 Absolute Nucleated RBC 0.1 /100WBC 08/21/18 05:15 Total Counted 100 08/20/18 15:34 Neutrophils % (Manual) 92 % (39-76) H 08/20/18 15:34 Lymphocytes % (Manual) 7 % (13-43) L 08/20/18 15:34 Monocytes % (Manual) 1 % (4-9) L 08/20/18 15:34 Plt Morphology Comment Normal (NORMAL) 08/20/18 15:34 RBC Morphology Normal (NORMAL) 08/20/18 15:34 Sodium 143 mmol/L (136-145) 08/21/18 05:15 Corrected Sodium 144 mmol/L (136-145) 08/21/18 05:15 Potassium 3.0 mmol/L (3.5-5.1) L* 08/21/18 05:15 Chloride 107 mmol/L (98-107) 08/21/18 05:15 Carbon Dioxide 26.9 mmol/L (21-32) 08/21/18 05:15 BUN 14 mg/dL (7-18) 08/21/18 05:15 Creatinine 0.88 mg/dL (0.70-1.30) 08/21/18 05:15 Est GFR (MDRD) Af Amer > 60 (>60) 08/21/18 05:15 Est GFR (MDRD) Non-Af > 60 (>60) 08/21/18 05:15 Glucose 140 mg/dL (65-99) H 08/21/18 05:15 Calcium 7.7 mg/dL (8.5-10.1) L 08/21/18 05:15 Corrected Calcium 8.3 mg/dL (8.5-10.1) L 08/21/18 05:15 Magnesium 1.9 mg/dL (1.7-2.9) 08/21/18 05:15 Total Bilirubin 1.20 mg/dL (0.2-1.0) H 08/21/18 05:15 AST 17 Units/L (15-37) 08/21/18 05:15 ALT 26 Units/L (12-78) 08/21/18 05:15 Alkaline Phosphatase 55 Units/L (46-116) 08/21/18 05:15 Total Protein 6.2 g/dL (6.4-8.2) L 08/21/18 05:15 Albumin 3.3 g/dL (3.4-5.0) L 08/21/18 05:15 Globulin 2.9 g/dL (2.5-4.5) 08/21/18 05:15 Albumin/Globulin Ratio 1.1 Ratio (1.1-2.1) 08/21/18 05:15 Amylase 17 Units/L (25-115) L 08/20/18 15:34 Lipase 56 Units/L (73-393) L 08/20/18 15:34 Specimen Type Catherized urine 08/21/18 11:01 Urine Color Yellow (YELLOW) 08/21/18 11:01 Urine Appearance Clear (CLEAR) 08/21/18 11:01 Urine pH 6.5 (5.0 - 8.0) 08/21/18 11:01 Ur Specific [place] 1.015 (1.000-1.030) 08/21/18 11:01 Urine Protein 1+ (NEGATIVE) 08/21/18 11:01 Urine Glucose (UA) Negative (NEGATIVE) 08/21/18 11:01 Urine Ketones Negative (NEGATIVE) 08/21/18 11:01 Urine Occult Blood 2+ (NEGATIVE) 08/21/18 11:01 Urine Nitrite Negative (NEGATIVE) 08/21/18 11:01 Urine Bilirubin Negative (NEGATIVE) 08/21/18 11:01 Urine Urobilinogen Normal (NORMAL) 08/21/18 11:01 Ur Leukocyte Esterase Negative (NEGATIVE) 08/21/18 11:01 Urine RBC 0-2 /HPF (NONE SEEN) 08/21/18 11:01 Urine WBC 0-2 /HPF (NONE SEEN) 08/21/18 11:01 Ur Squamous Epith Cells Few /HPF (NEGATIVE) 08/21/18 11:01 Ur Transition Epith Cell Few /HPF (NEGATIVE) 08/21/18 11:01 Amorphous Sediment Trace /HPF (NEGATIVE) 08/21/18 11:01 Urine Bacteria Negative /HPF (NEGATIVE) 08/21/18 11:01 Ur Culture Indicated? No/not indicated 08/21/18 11:01 - Plan (1) Small bowel obstruction Status: Acute Plan: NPO. PAIN AND NAUSEA CONTROL. IV HYDRATION, SURGICAL CONSULT (2) Vomiting Status: Acute (3) Abdominal pain Status: Acute Qualifiers: Abdominal location: generalized Qualified Code(s): R10.84 - Generalized abdominal pain (4) Hypertension Status: Chronic
[2018-08-21] MEDS ORDERED: D5 1/2 NS 1000 ML 1,000 ML IV SCH (13:00)
[2018-08-21] MEDS ORDERED: D5 1/2 NS + KCL 20 MEQ/L 1,000 ML ONE (13:46)
[2018-08-21] MEDS: POTASSIUM CHLORIDE IV SCH ×6 (13:59→21:52)
[2018-08-21] MEDS: 1/2 NS IV SCH ×6 (13:59→21:52)
[2018-08-21] MEDS: D5 IV SCH ×6 (13:59→21:52)
[2018-08-21] MEDS: DILAUDID INJ IVP PRN ×2 (16:11→22:00)
[2018-08-21] MEDS: KLONOPIN TAB 0.5 MG PO SCH (20:14)
[2018-08-22] MEDS: DILAUDID INJ IVP PRN ×5 (04:45→20:35)
[2018-08-22] MEDS: 1/2 NS IV SCH ×4 (04:50→05:12)
[2018-08-22] MEDS: D5 IV SCH ×4 (04:50→05:12)
[2018-08-22] MEDS: POTASSIUM CHLORIDE IV SCH ×4 (04:50→05:12)
[2018-08-22 05:07] LABS: BASOPHILS % (AUTO) 0.2 % (0.2-1.0); EOSINOPHILS # (AUTO) 0.1 x10^3/uL (0.0-0.2); EOSINOPHILS % (AUTO) 1.6 % (0.9-2.9); HEMATOCRIT 39.7 % (42.0-54.0); HEMOGLOBIN 13.7 g/dL (13.5-18.0); LYMPHOCYTES # (AUTO) 0.5 X10^3/uL (1.3-2.9); LYMPHOCYTES % (AUTO) 11.6 % (21.0-51.0); MEAN CORPUSCULAR HEMOGLOBIN 30.3 pg (27.0-34.0); MEAN CORPUSCULAR HGB CONC 34.5 g/dL (33.0-35.0); MEAN CORPUSCULAR VOLUME 87.8 fL (80.0-100.0); MEAN PLATELET VOLUME 7.6 fL (7.4-11.0); MONOCYTES # (AUTO) 0.7 x10^3/uL (0.3-0.8); MONOCYTES % (AUTO) 14.3 % (0.0-13.0); NEUTROPHILS # (AUTO) 3.3 x10^3/uL (2.2-4.8); NEUTROPHILS % (AUTO) 72.3 % (42.0-75.0); PLATELET COUNT 189 X10^3/uL (150.0-450.0); RED BLOOD COUNT 4.52 X10^6/uL (4.7-6.0); WHITE BLOOD COUNT 4.6 X10^3/uL (3.6-10.0)
[2018-08-22 05:21] LABS: ALANINE AMINOTRANSFERASE 24 Units/L (12-78); ALBUMIN 2.9 g/dL (3.4-5.0); ALKALINE PHOSPHATASE 47 Units/L (46-116); ASPARTATE AMINO TRANSFERASE 17 Units/L (15-37); BLOOD UREA NITROGEN 10 mg/dL (7-18); CARBON DIOXIDE 29.5 mmol/L (21-32); CHLORIDE 103 mmol/L (98-107); COR CA(FOR HYPOALB) 8.9 mg/dL (8.5-10.1); COR NA(FOR HYPERGLY) 140 mmol/L (136-145); MAGNESIUM 2.2 mg/dL (1.7-2.9); SODIUM 139 mmol/L (136-145); TOTAL PROTEIN 5.9 g/dL (6.4-8.2); eGFR NON BLACK RACES > 60 (>60)
[2018-08-22] MEDS ORDERED: PROTONIX INJ 40 MG VIAL IVP SCH (09:00)
[2018-08-22] MEDS: ASPIRIN EC 81 MG PO SCH (09:04)
[2018-08-22] MEDS: PEPCID 20 MG IV PREMIX* 20 MG/50 ML BAG IV SCH ×2 (09:05→20:47)
[2018-08-22] MEDS: NORVASC TAB 10 MG PO SCH (09:05)
[2018-08-22] MEDS: COZAAR PO SCH (09:05)
[2018-08-22] MEDS: LOPRESSOR TAB 25 MG PO SCH ×2 (09:05→20:32)
[2018-08-22] MEDS: HYDROCHLOROTHIAZIDE 25 MG TAB PO SCH (09:05)
[2018-08-22] MEDS ORDERED: CHLORASEPTIC SPRAY MT PRN (09:30)
--- NOTE | 2018-08-22 10:47 | DR.PROGNOT ---
Hospital Progress Notes - Progress Note for Day of: Progress Note Date: 08/22/18 - Chief Complaint Chief Complaint: Post op day 1. s/p exploratory lap , lysis of adhesion . doing well , moderate incisional pain . stable VS . will d/c JEREMY Guzman , start water . - Past Medical Family Social History Past Med/Fam/Surg Hx: No changes since H&P Allergies: Allergies No Known Drug Allergies [NKDA] Allergy (Verified 08/20/18 15:24) - Review Of Systems ROS: No change since H&P - Vital Signs Vital Signs: Temperature 98.5 F Pulse Rate [Right Brachial] 91 Pulse Rate [Left Brachial] 88 Pulse Rate 87 Respiratory Rate 20 Blood Pressure [Right Arm] 123/83 Blood Pressure [Left Arm] 118/75 Blood Pressure 140/83 O2 Sat by Pulse Oximetry 94 - Physical Exam Oriented: Normal Eyes: Normal, Diplopia Ear: Normal Nose: Normal Throat: Normal Respiratory: Normal Cardiovascular: Normal : Normal GI:Auscultation: Decreased GI:Palpation: Other (MILD DIFFUSE tendrness ) GI: Tenderness: Diffuse Skin: Normal Musculoskeletal: Back:Lumbar Psychiatric: Anxiety Mood Description: Calm Affect: Anxious Speech Pattern: Clear, Appropriate - Laboratory and Diagnostics Result Diagrams: 08/22/18 04:43 08/22/18 04:43 Labs: Laboratory WBC 4.6 X10^3/uL (3.6-10.0) 08/22/18 04:43 RBC 4.52 X10^6/uL (4.7-6.0) L 08/22/18 04:43 Hgb 13.7 g/dL (13.5-18.0) 08/22/18 04:43 Hct 39.7 % (42.0-54.0) L 08/22/18 04:43 MCV 87.8 fL (80.0-100.0) 08/22/18 04:43 MCH 30.3 pg (27.0-34.0) 08/22/18 04:43 MCHC 34.5 g/dL (33.0-35.0) 08/22/18 04:43 RDW 13.0 % (11.6-16.5) 08/22/18 04:43 Plt Count 189 X10^3/uL (150.0-450.0) 08/22/18 04:43 Plt Count Comment Adequate (ADEQUATE) 08/20/18 15:34 MPV 7.6 fL (7.4-11.0) 08/22/18 04:43 Neut % (Auto) 72.3 % (42.0-75.0) 08/22/18 04:43 Lymph % (Auto) 11.6 % (21.0-51.0) L 08/22/18 04:43 [place] % (Auto) 14.3 % (0.0-13.0) H 08/22/18 04:43 Eos % (Auto) 1.6 % (0.9-2.9) 08/22/18 04:43 Baso % (Auto) 0.2 % (0.2-1.0) 08/22/18 04:43 Neut # (Auto) 3.3 x10^3/uL (2.2-4.8) 08/22/18 04:43 Lymph # (Auto) 0.5 X10^3/uL (1.3-2.9) L 08/22/18 04:43 [place] # (Auto) 0.7 x10^3/uL (0.3-0.8) 08/22/18 04:43 Eos # (Auto) 0.1 x10^3/uL (0.0-0.2) 08/22/18 04:43 Baso # (Auto) 0.0 X10^3/uL (0.0-0.1) 08/22/18 04:43 Absolute Nucleated RBC 0.0 /100WBC 08/22/18 04:43 Total Counted 100 08/20/18 15:34 Neutrophils % (Manual) 92 % (39-76) H 08/20/18 15:34 Lymphocytes % (Manual) 7 % (13-43) L 08/20/18 15:34 Monocytes % (Manual) 1 % (4-9) L 08/20/18 15:34 Plt Morphology Comment Normal (NORMAL) 08/20/18 15:34 RBC Morphology Normal (NORMAL) 08/20/18 15:34 Sodium 139 mmol/L (136-145) 08/22/18 04:43 Corrected Sodium 140 mmol/L (136-145) 08/22/18 04:43 Potassium 3.2 mmol/L (3.5-5.1) L 08/22/18 04:43 Chloride 103 mmol/L (98-107) 08/22/18 04:43 Carbon Dioxide 29.5 mmol/L (21-32) 08/22/18 04:43 BUN 10 mg/dL (7-18) 08/22/18 04:43 Creatinine 0.90 mg/dL (0.70-1.30) 08/22/18 04:43 Est GFR (MDRD) Af Amer > 60 (>60) 08/22/18 04:43 Est GFR (MDRD) Non-Af > 60 (>60) 08/22/18 04:43 Glucose 152 mg/dL (65-99) H 08/22/18 04:43 Calcium 8.0 mg/dL (8.5-10.1) L 08/22/18 04:43 Corrected Calcium 8.9 mg/dL (8.5-10.1) 08/22/18 04:43 Magnesium 2.2 mg/dL (1.7-2.9) 08/22/18 04:43 Total Bilirubin 1.30 mg/dL (0.2-1.0) H 08/22/18 04:43 AST 17 Units/L (15-37) 08/22/18 04:43 ALT 24 Units/L (12-78) 08/22/18 04:43 Alkaline Phosphatase 47 Units/L (46-116) 08/22/18 04:43 Total Protein 5.9 g/dL (6.4-8.2) L 08/22/18 04:43 Albumin 2.9 g/dL (3.4-5.0) L 08/22/18 04:43 Globulin 3.0 g/dL (2.5-4.5) 08/22/18 04:43 Albumin/Globulin Ratio 1.0 Ratio (1.1-2.1) L 08/22/18 04:43 Amylase 17 Units/L (25-115) L 08/20/18 15:34 Lipase 56 Units/L (73-393) L 08/20/18 15:34 Specimen Type Catherized urine 08/21/18 11:01 Urine Color Yellow (YELLOW) 08/21/18 11:01 Urine Appearance Clear (CLEAR) 08/21/18 11:01 Urine pH 6.5 (5.0 - 8.0) 08/21/18 11:01 Ur Specific [place] 1.015 (1.000-1.030) 08/21/18 11:01 Urine Protein 1+ (NEGATIVE) 08/21/18 11:01 Urine Glucose (UA) Negative (NEGATIVE) 08/21/18 11:01 Urine Ketones Negative (NEGATIVE) 08/21/18 11:01 Urine Occult Blood 2+ (NEGATIVE) 08/21/18 11:01 Urine Nitrite Negative (NEGATIVE) 08/21/18 11:01 Urine Bilirubin Negative (NEGATIVE) 08/21/18 11:01 Urine Urobilinogen Normal (NORMAL) 08/21/18 11:01 Ur Leukocyte Esterase Negative (NEGATIVE) 08/21/18 11:01 Urine RBC 0-2 /HPF (NONE SEEN) 08/21/18 11:01 Urine WBC 0-2 /HPF (NONE SEEN) 08/21/18 11:01 Ur Squamous Epith Cells Few /HPF (NEGATIVE) 08/21/18 11:01 Ur Transition Epith Cell Few /HPF (NEGATIVE) 08/21/18 11:01 Amorphous Sediment Trace /HPF (NEGATIVE) 08/21/18 11:01 Urine Bacteria Negative /HPF (NEGATIVE) 08/21/18 11:01 Ur Culture Indicated? No/not indicated 08/21/18 11:01 - Assessment and Plan 1: recurrent SBO . s/p laparotomy , lysis of adhesions . same PO care . d/c Guzman and NGT . may have water and oral meds . - Problem Patient Problems: Patient Problems Partial obstruction of small intestine (Acute) K56.600 Abdominal pain (Acute) R10.9 Vomiting (Acute) R11.10 Abdominal pain (Acute) R10.9 Hyperglycemia (Acute) R73.9
[2018-08-22] MEDS ORDERED: D5 1/2 NS + KCL 20 MEQ/L 1,000 ML ONE (11:12)
[2018-08-22] MEDS: D5 1/2 NS + KCL 20 MEQ/L 1,000 ML IV SCH ×2 (11:14→20:31)
--- NOTE | 2018-08-22 11:44 | PCM.PROG ---
Progress Note - Progress Note for Day of Date of Exam: 08/22/18 - Subjective Subjective: 48 WM ER ADMISSION LAST PM WITH SBO. Post op day 1,s/p exploratory lap , lysis of adhesion per Dr Ritchie. Pt is doing well this am, moderate incisional pain. Dr Ritchie ordered DC russell and ng tube, will start po water and ice chips. contiues pain control, bp monitoring, abdomen binder, wound care per post operative care instruction. - Past Medical Family Social History Past Med/Fam/Surg Hx: No changes since H&P Allergies: Allergies No Known Drug Allergies [NKDA] Allergy (Verified 08/20/18 15:24) - Review of Systems ROS: No change since H&P - Vital Signs and I&O's Vital Signs: Temperature 98.5 F Pulse Rate [Right Brachial] 91 Pulse Rate [Left Brachial] 88 Pulse Rate 87 Respiratory Rate 20 Blood Pressure [Right Arm] 123/83 Blood Pressure [Left Arm] 118/75 Blood Pressure 140/83 O2 Sat by Pulse Oximetry 94 Intake and Output: Intake & Output 08/19/18 08/20/18 08/21/18 08/22/18 11:59 11:59 11:59 11:59 Intake Total 2120 / 2120 2810 / 2810 Output Total 2400 / 2400 1945 / 1945 Balance -280 / -280 865 / 865 - Physical Exam Oriented: Normal Eyes: Normal, Diplopia Ear: Normal Nose: Normal Throat: Normal Respiratory: Normal Cardiovascular: Normal : Normal Auscultation: Bowel Sounds: Decreased Tenderness: Diffuse Skin: Wound (post operative central abdominal tenderness) Musculoskeletal: Back:Lumbar Psychiatric: Anxiety Mood Description: Calm Affect: Anxious Speech Pattern: Clear, Appropriate - Laboratory and Diagnostics Result Diagrams: 08/22/18 04:43 08/22/18 04:43 Labs: Laboratory WBC 4.6 X10^3/uL (3.6-10.0) 08/22/18 04:43 RBC 4.52 X10^6/uL (4.7-6.0) L 08/22/18 04:43 Hgb 13.7 g/dL (13.5-18.0) 08/22/18 04:43 Hct 39.7 % (42.0-54.0) L 08/22/18 04:43 MCV 87.8 fL (80.0-100.0) 08/22/18 04:43 MCH 30.3 pg (27.0-34.0) 08/22/18 04:43 MCHC 34.5 g/dL (33.0-35.0) 08/22/18 04:43 RDW 13.0 % (11.6-16.5) 08/22/18 04:43 Plt Count 189 X10^3/uL (150.0-450.0) 08/22/18 04:43 Plt Count Comment Adequate (ADEQUATE) 08/20/18 15:34 MPV 7.6 fL (7.4-11.0) 08/22/18 04:43 Neut % (Auto) 72.3 % (42.0-75.0) 08/22/18 04:43 Lymph % (Auto) 11.6 % (21.0-51.0) L 08/22/18 04:43 [place] % (Auto) 14.3 % (0.0-13.0) H 08/22/18 04:43 Eos % (Auto) 1.6 % (0.9-2.9) 08/22/18 04:43 Baso % (Auto) 0.2 % (0.2-1.0) 08/22/18 04:43 Neut # (Auto) 3.3 x10^3/uL (2.2-4.8) 08/22/18 04:43 Lymph # (Auto) 0.5 X10^3/uL (1.3-2.9) L 08/22/18 04:43 [place] # (Auto) 0.7 x10^3/uL (0.3-0.8) 08/22/18 04:43 Eos # (Auto) 0.1 x10^3/uL (0.0-0.2) 08/22/18 04:43 Baso # (Auto) 0.0 X10^3/uL (0.0-0.1) 08/22/18 04:43 Absolute Nucleated RBC 0.0 /100WBC 08/22/18 04:43 Total Counted 100 08/20/18 15:34 Neutrophils % (Manual) 92 % (39-76) H 08/20/18 15:34 Lymphocytes % (Manual) 7 % (13-43) L 08/20/18 15:34 Monocytes % (Manual) 1 % (4-9) L 08/20/18 15:34 Plt Morphology Comment Normal (NORMAL) 08/20/18 15:34 RBC Morphology Normal (NORMAL) 08/20/18 15:34 Sodium 139 mmol/L (136-145) 08/22/18 04:43 Corrected Sodium 140 mmol/L (136-145) 08/22/18 04:43 Potassium 3.2 mmol/L (3.5-5.1) L 08/22/18 04:43 Chloride 103 mmol/L (98-107) 08/22/18 04:43 Carbon Dioxide 29.5 mmol/L (21-32) 08/22/18 04:43 BUN 10 mg/dL (7-18) 08/22/18 04:43 Creatinine 0.90 mg/dL (0.70-1.30) 08/22/18 04:43 Est GFR (MDRD) Af Amer > 60 (>60) 08/22/18 04:43 Est GFR (MDRD) Non-Af > 60 (>60) 08/22/18 04:43 Glucose 152 mg/dL (65-99) H 08/22/18 04:43 Calcium 8.0 mg/dL (8.5-10.1) L 08/22/18 04:43 Corrected Calcium 8.9 mg/dL (8.5-10.1) 08/22/18 04:43 Magnesium 2.2 mg/dL (1.7-2.9) 08/22/18 04:43 Total Bilirubin 1.30 mg/dL (0.2-1.0) H 08/22/18 04:43 AST 17 Units/L (15-37) 08/22/18 04:43 ALT 24 Units/L (12-78) 08/22/18 04:43 Alkaline Phosphatase 47 Units/L (46-116) 08/22/18 04:43 Total Protein 5.9 g/dL (6.4-8.2) L 08/22/18 04:43 Albumin 2.9 g/dL (3.4-5.0) L 08/22/18 04:43 Globulin 3.0 g/dL (2.5-4.5) 08/22/18 04:43 Albumin/Globulin Ratio 1.0 Ratio (1.1-2.1) L 08/22/18 04:43 Amylase 17 Units/L (25-115) L 08/20/18 15:34 Lipase 56 Units/L (73-393) L 08/20/18 15:34 Specimen Type Catherized urine 08/21/18 11:01 Urine Color Yellow (YELLOW) 08/21/18 11:01 Urine Appearance Clear (CLEAR) 08/21/18 11:01 Urine pH 6.5 (5.0 - 8.0) 08/21/18 11:01 Ur Specific [place] 1.015 (1.000-1.030) 08/21/18 11:01 Urine Protein 1+ (NEGATIVE) 08/21/18 11:01 Urine Glucose (UA) Negative (NEGATIVE) 08/21/18 11:01 Urine Ketones Negative (NEGATIVE) 08/21/18 11:01 Urine Occult Blood 2+ (NEGATIVE) 08/21/18 11:01 Urine Nitrite Negative (NEGATIVE) 08/21/18 11:01 Urine Bilirubin Negative (NEGATIVE) 08/21/18 11:01 Urine Urobilinogen Normal (NORMAL) 08/21/18 11:01 Ur Leukocyte Esterase Negative (NEGATIVE) 08/21/18 11:01 Urine RBC 0-2 /HPF (NONE SEEN) 08/21/18 11:01 Urine WBC 0-2 /HPF (NONE SEEN) 08/21/18 11:01 Ur Squamous Epith Cells Few /HPF (NEGATIVE) 08/21/18 11:01 Ur Transition Epith Cell Few /HPF (NEGATIVE) 08/21/18 11:01 Amorphous Sediment Trace /HPF (NEGATIVE) 08/21/18 11:01 Urine Bacteria Negative /HPF (NEGATIVE) 08/21/18 11:01 Ur Culture Indicated? No/not indicated 08/21/18 11:01 - Plan (1) Small bowel obstruction Status: Acute Plan: NPO. PAIN AND NAUSEA CONTROL. IV HYDRATION, SURGICAL CONSULT (2) Vomiting Status: Acute (3) Abdominal pain Status: Acute Qualifiers: Abdominal location: generalized Qualified Code(s): R10.84 - Generalized abdominal pain (4) Hypertension Status: Chronic
[2018-08-22] MEDS ORDERED: TYLENOL 325 MG TAB PO PRN (14:57)
[2018-08-22] MEDS: KLONOPIN TAB 0.5 MG PO SCH (20:31)
[2018-08-23] MEDS: ZOFRAN INJ 4 MG VIAL IVP PRN (01:57)
[2018-08-23] MEDS: DILAUDID INJ IVP PRN (01:58)
[2018-08-23 05:53] LABS: BASOPHILS % (AUTO) 0.3 % (0.2-1.0); EOSINOPHILS # (AUTO) 0.2 x10^3/uL (0.0-0.2); HEMATOCRIT 37.9 % (42.0-54.0); HEMOGLOBIN 13.1 g/dL (13.5-18.0); LYMPHOCYTES % (AUTO) 13.9 % (21.0-51.0); MEAN CORPUSCULAR HEMOGLOBIN 30.5 pg (27.0-34.0); MEAN CORPUSCULAR HGB CONC 34.6 g/dL (33.0-35.0); MEAN PLATELET VOLUME 7.3 fL (7.4-11.0); MONOCYTES # (AUTO) 1.1 x10^3/uL (0.3-0.8); NEUTROPHILS # (AUTO) 4.6 x10^3/uL (2.2-4.8); NEUTROPHILS % (AUTO) 66.8 % (42.0-75.0); PLATELET COUNT 208 X10^3/uL (150.0-450.0); RED BLOOD COUNT 4.31 X10^6/uL (4.7-6.0); RED CELL DISTRIBUTION WIDTH 13.2 % (11.6-16.5); WHITE BLOOD COUNT 6.9 X10^3/uL (3.6-10.0)
[2018-08-23 06:05] LABS: ALANINE AMINOTRANSFERASE 28 Units/L (12-78); ALBUMIN 2.9 g/dL (3.4-5.0); ALKALINE PHOSPHATASE 57 Units/L (46-116); ASPARTATE AMINO TRANSFERASE 25 Units/L (15-37); BLOOD UREA NITROGEN 11 mg/dL (7-18); CALCIUM 8.4 mg/dL (8.5-10.1); CARBON DIOXIDE 30.7 mmol/L (21-32); CHLORIDE 103 mmol/L (98-107); COR CA(FOR HYPOALB) 9.3 mg/dL (8.5-10.1); COR NA(FOR HYPERGLY) 141 mmol/L (136-145); CREATININE 0.95 mg/dL (0.70-1.30); SODIUM 137 mmol/L (136-145); TOTAL PROTEIN 6.3 g/dL (6.4-8.2); eGFR NON BLACK RACES > 60 (>60)
[2018-08-23] MEDS ORDERED: DILAUDID INJ IVP PRN (08:56)
[2018-08-23] MEDS ORDERED: D5 1/2 NS 1000 ML 1,000 ML IV SCH (09:00)
[2018-08-23] MEDS: COZAAR PO SCH (09:17)
[2018-08-23] MEDS: PEPCID 20 MG IV PREMIX* 20 MG/50 ML BAG IV SCH (09:17)
[2018-08-23] MEDS: LOPRESSOR TAB 25 MG PO SCH ×2 (09:17→20:17)
[2018-08-23] MEDS: HYDROCHLOROTHIAZIDE 25 MG TAB PO SCH (09:17)
[2018-08-23] MEDS: NORVASC TAB 10 MG PO SCH (09:17)
[2018-08-23] MEDS: ASPIRIN EC 81 MG PO SCH (09:17)
--- NOTE | 2018-08-23 12:24 | DR.PROGNOT ---
Hospital Progress Notes - Progress Note for Day of: Progress Note Date: 08/23/18 - Chief Complaint Chief Complaint: Post op day 2. s/p exploratory lap , lysis of adhesion . doing well , moderate incisional pain . tolerating diet well , OOB. stable VS . - Past Medical Family Social History Past Med/Fam/Surg Hx: No changes since H&P Allergies: Allergies No Known Drug Allergies [NKDA] Allergy (Verified 08/20/18 15:24) - Review Of Systems ROS: No change since H&P - Vital Signs Vital Signs: Temperature 97.7 F Pulse Rate [Right Brachial] 80 Pulse Rate [Left Brachial] 88 Pulse Rate 87 Respiratory Rate 20 Blood Pressure [Right Arm] 109/68 Blood Pressure [Left Arm] 118/75 Blood Pressure 140/83 O2 Sat by Pulse Oximetry 98 - Physical Exam Oriented: Normal Eyes: Normal, Diplopia Ear: Normal Nose: Normal Throat: Normal Respiratory: Normal Cardiovascular: Normal : Normal GI:Auscultation: Decreased GI:Palpation: Other (MILD DIFFUSE tendrness ) GI: Tenderness: Diffuse Skin: Wound (post operative central abdominal tenderness) Musculoskeletal: Back:Lumbar Psychiatric: Anxiety Mood Description: Calm Affect: Anxious Speech Pattern: Clear, Appropriate - Laboratory and Diagnostics Result Diagrams: 08/23/18 05:34 08/23/18 05:34 Labs: Laboratory WBC 6.9 X10^3/uL (3.6-10.0) 08/23/18 05:34 RBC 4.31 X10^6/uL (4.7-6.0) L 08/23/18 05:34 Hgb 13.1 g/dL (13.5-18.0) L 08/23/18 05:34 Hct 37.9 % (42.0-54.0) L 08/23/18 05:34 MCV 88.0 fL (80.0-100.0) 08/23/18 05:34 MCH 30.5 pg (27.0-34.0) 08/23/18 05:34 MCHC 34.6 g/dL (33.0-35.0) 08/23/18 05:34 RDW 13.2 % (11.6-16.5) 08/23/18 05:34 Plt Count 208 X10^3/uL (150.0-450.0) 08/23/18 05:34 Plt Count Comment Adequate (ADEQUATE) 08/20/18 15:34 MPV 7.3 fL (7.4-11.0) L 08/23/18 05:34 Neut % (Auto) 66.8 % (42.0-75.0) 08/23/18 05:34 Lymph % (Auto) 13.9 % (21.0-51.0) L 08/23/18 05:34 [place] % (Auto) 16.0 % (0.0-13.0) H 08/23/18 05:34 Eos % (Auto) 3.0 % (0.9-2.9) H 08/23/18 05:34 Baso % (Auto) 0.3 % (0.2-1.0) 08/23/18 05:34 Neut # (Auto) 4.6 x10^3/uL (2.2-4.8) 08/23/18 05:34 Lymph # (Auto) 1.0 X10^3/uL (1.3-2.9) L 08/23/18 05:34 [place] # (Auto) 1.1 x10^3/uL (0.3-0.8) H 08/23/18 05:34 Eos # (Auto) 0.2 x10^3/uL (0.0-0.2) 08/23/18 05:34 Baso # (Auto) 0.0 X10^3/uL (0.0-0.1) 08/23/18 05:34 Absolute Nucleated RBC 0.0 /100WBC 08/23/18 05:34 Total Counted 100 08/20/18 15:34 Neutrophils % (Manual) 92 % (39-76) H 08/20/18 15:34 Lymphocytes % (Manual) 7 % (13-43) L 08/20/18 15:34 Monocytes % (Manual) 1 % (4-9) L 08/20/18 15:34 Plt Morphology Comment Normal (NORMAL) 08/20/18 15:34 RBC Morphology Normal (NORMAL) 08/20/18 15:34 Sodium 137 mmol/L (136-145) 08/23/18 05:34 Corrected Sodium 141 mmol/L (136-145) 08/23/18 05:34 Potassium 4.9 mmol/L (3.5-5.1) 08/23/18 05:34 Chloride 103 mmol/L (98-107) 08/23/18 05:34 Carbon Dioxide 30.7 mmol/L (21-32) 08/23/18 05:34 BUN 11 mg/dL (7-18) 08/23/18 05:34 Creatinine 0.95 mg/dL (0.70-1.30) 08/23/18 05:34 Est GFR (MDRD) Af Amer > 60 (>60) 08/23/18 05:34 Est GFR (MDRD) Non-Af > 60 (>60) 08/23/18 05:34 Glucose 252 mg/dL (65-99) H 08/23/18 05:34 Calcium 8.4 mg/dL (8.5-10.1) L 08/23/18 05:34 Corrected Calcium 9.3 mg/dL (8.5-10.1) 08/23/18 05:34 Magnesium 2.2 mg/dL (1.7-2.9) 08/22/18 04:43 Total Bilirubin 1.30 mg/dL (0.2-1.0) H 08/23/18 05:34 AST 25 Units/L (15-37) 08/23/18 05:34 ALT 28 Units/L (12-78) 08/23/18 05:34 Alkaline Phosphatase 57 Units/L (46-116) 08/23/18 05:34 Total Protein 6.3 g/dL (6.4-8.2) L 08/23/18 05:34 Albumin 2.9 g/dL (3.4-5.0) L 08/23/18 05:34 Globulin 3.4 g/dL (2.5-4.5) 08/23/18 05:34 Albumin/Globulin Ratio 0.9 Ratio (1.1-2.1) L 08/23/18 05:34 Amylase 17 Units/L (25-115) L 08/20/18 15:34 Lipase 56 Units/L (73-393) L 08/20/18 15:34 Specimen Type Catherized urine 08/21/18 11:01 Urine Color Yellow (YELLOW) 08/21/18 11:01 Urine Appearance Clear (CLEAR) 08/21/18 11:01 Urine pH 6.5 (5.0 - 8.0) 08/21/18 11:01 Ur Specific [place] 1.015 (1.000-1.030) 08/21/18 11:01 Urine Protein 1+ (NEGATIVE) 08/21/18 11:01 Urine Glucose (UA) Negative (NEGATIVE) 08/21/18 11:01 Urine Ketones Negative (NEGATIVE) 08/21/18 11:01 Urine Occult Blood 2+ (NEGATIVE) 08/21/18 11:01 Urine Nitrite Negative (NEGATIVE) 08/21/18 11:01 Urine Bilirubin Negative (NEGATIVE) 08/21/18 11:01 Urine Urobilinogen Normal (NORMAL) 08/21/18 11:01 Ur Leukocyte Esterase Negative (NEGATIVE) 08/21/18 11:01 Urine RBC 0-2 /HPF (NONE SEEN) 08/21/18 11:01 Urine WBC 0-2 /HPF (NONE SEEN) 08/21/18 11:01 Ur Squamous Epith Cells Few /HPF (NEGATIVE) 08/21/18 11:01 Ur Transition Epith Cell Few /HPF (NEGATIVE) 08/21/18 11:01 Amorphous Sediment Trace /HPF (NEGATIVE) 08/21/18 11:01 Urine Bacteria Negative /HPF (NEGATIVE) 08/21/18 11:01 Ur Culture Indicated? No/not indicated 08/21/18 11:01 - Assessment and Plan 1: recurrent SBO . s/p laparotomy , lysis of adhesions . same PO care . advance diet , reduce IVF .D/C in am. - Problem Patient Problems: Patient Problems Partial obstruction of small intestine (Acute) K56.600 Abdominal pain (Acute) R10.9 Vomiting (Acute) R11.10 Abdominal pain (Acute) R10.9 Hyperglycemia (Acute) R73.9
[2018-08-23] MEDS: PERCOCET TAB 5/325 MG PO PRN ×2 (14:05→20:17)
[2018-08-23] MEDS: KLONOPIN TAB 0.5 MG PO SCH (20:17)
[2018-08-23] MEDS: PEPCID TAB 20 MG PO SCH (20:18)
[2018-08-24 05:44] LABS: BASOPHILS % (AUTO) 0.2 % (0.2-1.0); EOSINOPHILS # (AUTO) 0.4 x10^3/uL (0.0-0.2); EOSINOPHILS % (AUTO) 5.1 % (0.9-2.9); HEMATOCRIT 37.5 % (42.0-54.0); HEMOGLOBIN 13.5 g/dL (13.5-18.0); LYMPHOCYTES # (AUTO) 1.1 X10^3/uL (1.3-2.9); LYMPHOCYTES % (AUTO) 15.2 % (21.0-51.0); MEAN CORPUSCULAR HEMOGLOBIN 30.8 pg (27.0-34.0); MEAN CORPUSCULAR VOLUME 85.5 fL (80.0-100.0); MEAN PLATELET VOLUME 7.3 fL (7.4-11.0); MONOCYTES # (AUTO) 0.7 x10^3/uL (0.3-0.8); MONOCYTES % (AUTO) 9.6 % (0.0-13.0); NEUTROPHILS # (AUTO) 4.9 x10^3/uL (2.2-4.8); NEUTROPHILS % (AUTO) 69.9 % (42.0-75.0); PLATELET COUNT 222 X10^3/uL (150.0-450.0); RED BLOOD COUNT 4.39 X10^6/uL (4.7-6.0); RED CELL DISTRIBUTION WIDTH 12.8 % (11.6-16.5)
[2018-08-24 05:56] LABS: ALANINE AMINOTRANSFERASE 28 Units/L (12-78); ALBUMIN 2.8 g/dL (3.4-5.0); ALKALINE PHOSPHATASE 59 Units/L (46-116); ASPARTATE AMINO TRANSFERASE 19 Units/L (15-37); BLOOD UREA NITROGEN 8 mg/dL (7-18); CALCIUM 8.8 mg/dL (8.5-10.1); CHLORIDE 101 mmol/L (98-107); COR CA(FOR HYPOALB) 9.8 mg/dL (8.5-10.1); CREATININE 0.69 mg/dL (0.70-1.30); SODIUM 139 mmol/L (136-145); TOTAL PROTEIN 6.1 g/dL (6.4-8.2); eGFR NON BLACK RACES > 60 (>60)
[2018-08-24] MEDS: COZAAR PO SCH (09:39)
[2018-08-24] MEDS: HYDROCHLOROTHIAZIDE 25 MG TAB PO SCH (09:39)
[2018-08-24] MEDS: ASPIRIN EC 81 MG PO SCH (09:39)
[2018-08-24] MEDS: PEPCID TAB 20 MG PO SCH (09:39)
[2018-08-24] MEDS: NORVASC TAB 10 MG PO SCH (09:39)
[2018-08-24] MEDS: LOPRESSOR TAB 25 MG PO SCH (09:39)
[2018-08-24 12:38] VITALS: BP 130/79
== END 2018-08-24 13:45 | disposition home or self-care (01) | DRG 328 ==
LOC: ER 15:19 → MED/SURG 15:19 → OBSVTOIN 21:16 → MED/SURG 21:45
PROVIDERS: ADMIT Internal Medicine; ATTEND Internal Medicine
DX: K56.51 Intestinal adhesions [bands], with partial obstruction; R11.2 Nausea with vomiting, unspecified; K56.690 Other partial intestinal obstruction; I10 Essential (primary) hypertension; K21.9 Gastro-esophageal reflux disease without esophagitis; R94.31 Abnormal electrocardiogram [ECG] [EKG]; R73.9 Hyperglycemia, unspecified; R10.84 Generalized abdominal pain
CPT/HCPCS: 36415; 74000; 74018; 74022; 74177; 80053; 81001; 82150; 83690; 83735; 84132; 85025; 87040; 93005; 94760; 96365; 96367; 96374; 96375; 99284; A4216; A4222; J3490; S0028; J0330; J0690; J1170; J2175; J2250; J2405; J2704; J2710; J3010; J3475; J3480; J7030; J7050; J7120; S5010

== ENCOUNTER 2018-08-25 00:27 | Inpatient (IN) ==
[2018-08-25 00:42] VITALS: BMI 36.5
[2018-08-25] MEDS ORDERED: NS 1000 ML 1,000 ML IV ONE (01:01)
[2018-08-25] MEDS ORDERED: NS 1000 ML 1,000 ML ONE (01:01)
[2018-08-25] MEDS ORDERED: ZOFRAN INJ 4 MG VIAL ONE ×2 (01:01→07:51)
[2018-08-25] MEDS ORDERED: ZOFRAN INJ 4 MG VIAL IVP ONE ×3 (01:01→20:48)
--- NOTE | 2018-08-25 01:19 | DR.GENAD ---
HPI Time Seen Time Seen by Provider: 08/25/18 00:45 PCP Primary Care Physician: meenakshi Complaint/Symptoms Chief Complaint:: PT C/O SOB, NAUSEA/ VOMITING AND STOMACH PAIN. Source History Provided: Patient Mode of Arrival Mode of Arrival: Stretcher Timing Onset of Chief Complaint: 08/24/18 PMH PMH Past Medical History: Yes Past Medical History: Hypertension Past Surgical History: Yes Surgical History: Appendectomy and Cholecystectomy Past Surgical History Comment: SCAR TISSUE REMOVED FROM HIS INTESTINES Family History History of Family Medical Conditions: Yes Family Medical History: Hypertension Social History Does patient currently use any type of tobacco product: No Have you used tobacco products in the last 12 months: No Type of Tobacco Use: None Does any household member use tobacco: No Alcohol Use: None Do you use any recreational Drugs:: No Lives With: Alone Lives Where: Home infectious screening In the last 2 months have you had wt loss of >10#?: NO Have you traveled outside the country in the last 6 months?: No Isolation: Standard PE Vital Signs Vitals: Temperature 97.8 F Pulse Rate [Left] 106 Pulse Rate 110 Respiratory Rate 16 Blood Pressure [Right Arm] 133/83 Blood Pressure [Left Arm] 133/68 Blood Pressure 120/78 O2 Sat by Pulse Oximetry 98 ROR Labs Reviewed Result Diagrams: 08/25/18 01:34 08/25/18 01:34 Laboratory: WBC 10.8 X10^3/uL (3.6-10.0) H 08/25/18 01:34 RBC 5.39 X10^6/uL (4.7-6.0) 08/25/18 01:34 Hgb 16.5 g/dL (13.5-18.0) D 08/25/18 01:34 Hct 46.3 % (42.0-54.0) 08/25/18 01:34 MCV 85.8 fL (80.0-100.0) 08/25/18 01:34 MCH 30.6 pg (27.0-34.0) 08/25/18 01:34 MCHC 35.7 g/dL (33.0-35.0) H 08/25/18 01:34 RDW 12.5 % (11.6-16.5) 08/25/18 01:34 Plt Count 338 X10^3/uL (150.0-450.0) 08/25/18 01:34 MPV 7.9 fL (7.4-11.0) 08/25/18 01:34 Neut % (Auto) 88.2 % (42.0-75.0) H 08/25/18 01:34 Lymph % (Auto) 5.4 % (21.0-51.0) L 08/25/18 01:34 [place] % (Auto) 5.6 % (0.0-13.0) 08/25/18 01:34 Eos % (Auto) 0.7 % (0.9-2.9) L 08/25/18 01:34 Baso % (Auto) 0.1 % (0.2-1.0) L 08/25/18 01:34 Neut # (Auto) 9.5 x10^3/uL (2.2-4.8) H 08/25/18 01:34 Lymph # (Auto) 0.6 X10^3/uL (1.3-2.9) L 08/25/18 01:34 [place] # (Auto) 0.6 x10^3/uL (0.3-0.8) 08/25/18 01:34 Eos # (Auto) 0.1 x10^3/uL (0.0-0.2) 08/25/18 01:34 Baso # (Auto) 0.0 X10^3/uL (0.0-0.1) 08/25/18 01:34 Absolute Nucleated RBC 1.5 /100WBC 08/25/18 01:34 D-Dimer 4670 ng/mL (0-400) H* 08/25/18 01:34 Sodium 137 mmol/L (136-145) 08/25/18 01:34 Corrected Sodium 138 mmol/L (136-145) 08/25/18 01:34 Potassium 3.4 mmol/L (3.5-5.1) L 08/25/18 01:34 Chloride 99 mmol/L (98-107) 08/25/18 01:34 Carbon Dioxide 25.0 mmol/L (21-32) 08/25/18 01:34 BUN 12 mg/dL (7-18) 08/25/18 01:34 Creatinine 0.89 mg/dL (0.70-1.30) 08/25/18 01:34 Est GFR (MDRD) Af Amer > 60 (>60) 08/25/18 01:34 Est GFR (MDRD) Non-Af > 60 (>60) 08/25/18 01:34 Glucose 157 mg/dL (65-99) H 08/25/18 01:34 Calcium 10.0 mg/dL (8.5-10.1) 08/25/18 01:34 Corrected Calcium TNP 08/25/18 01:34 Total Bilirubin 1.10 mg/dL (0.2-1.0) H 08/25/18 01:34 AST 20 Units/L (15-37) 08/25/18 01:34 ALT 35 Units/L (12-78) 08/25/18 01:34 Alkaline Phosphatase 80 Units/L (46-116) 08/25/18 01:34 Total Protein 7.7 g/dL (6.4-8.2) 08/25/18 01:34 Albumin 3.4 g/dL (3.4-5.0) 08/25/18 01:34 Globulin 4.3 g/dL (2.5-4.5) 08/25/18 01:34 Albumin/Globulin Ratio 0.8 Ratio (1.1-2.1) L 08/25/18 01:34 Amylase 51 Units/L (25-115) 08/25/18 01:34 Lipase 509 Units/L (73-393) H 08/25/18 01:34 Opioid Opioid Risk Tool Total: 0 Total Score Risk Category: Low Risk Copyright: Harris DOWNEY predicting aberrant behaviors Diagnosis Discharge Problem: Small bowel obstruction Abdominal pain Qualifiers: Abdominal location: generalized Qualified Code(s): R10.84 - Generalized abdominal pain Instructions Forms: Excuse From Work
[2018-08-25 01:53] LABS: CHLORIDE 99 mmol/L (98-107)
[2018-08-25] MEDS ORDERED: DILAUDID INJ IVP ONE ×2 (02:09→07:49)
[2018-08-25 02:17] LABS: AMYLASE 51 Units/L (25-115); LIPASE 509 Units/L (73-393)
[2018-08-25] MEDS ORDERED: DILAUDID INJ ONE ×2 (02:18→07:51)
[2018-08-25 02:24] LABS: BASOPHILS % (AUTO) 0.1 % (0.2-1.0); EOSINOPHILS # (AUTO) 0.1 x10^3/uL (0.0-0.2); LYMPHOCYTES # (AUTO) 0.6 X10^3/uL (1.3-2.9); MEAN CORPUSCULAR VOLUME 85.8 fL (80.0-100.0)
[2018-08-25 02:26] LABS: ALANINE AMINOTRANSFERASE 35 Units/L (12-78); ALBUMIN 3.4 g/dL (3.4-5.0); ALKALINE PHOSPHATASE 80 Units/L (46-116); ASPARTATE AMINO TRANSFERASE 20 Units/L (15-37); BLOOD UREA NITROGEN 12 mg/dL (7-18); COR NA(FOR HYPERGLY) 138 mmol/L (136-145); CREATININE 0.89 mg/dL (0.70-1.30); SODIUM 137 mmol/L (136-145); TOTAL PROTEIN 7.7 g/dL (6.4-8.2); eGFR NON BLACK RACES > 60 (>60)
[2018-08-25 02:31] LABS: EOSINOPHILS % (AUTO) 0.7 % (0.9-2.9); HEMATOCRIT 46.3 % (42.0-54.0); HEMOGLOBIN 16.5 g/dL (13.5-18.0); LYMPHOCYTES % (AUTO) 5.4 % (21.0-51.0); MEAN CORPUSCULAR HEMOGLOBIN 30.6 pg (27.0-34.0); MEAN CORPUSCULAR HGB CONC 35.7 g/dL (33.0-35.0); MEAN PLATELET VOLUME 7.9 fL (7.4-11.0); MONOCYTES # (AUTO) 0.6 x10^3/uL (0.3-0.8); MONOCYTES % (AUTO) 5.6 % (0.0-13.0); NEUTROPHILS # (AUTO) 9.5 x10^3/uL (2.2-4.8); NEUTROPHILS % (AUTO) 88.2 % (42.0-75.0); PLATELET COUNT 338 X10^3/uL (150.0-450.0); RED BLOOD COUNT 5.39 X10^6/uL (4.7-6.0); RED CELL DISTRIBUTION WIDTH 12.5 % (11.6-16.5); WHITE BLOOD COUNT 10.8 X10^3/uL (3.6-10.0)
[2018-08-25] MEDS ORDERED: COMPAZINE INJ IVP ONE (03:35)
[2018-08-25] MEDS ORDERED: COMPAZINE INJ ONE (03:36)
--- NOTE | 2018-08-25 08:11 | CT ---
HISTORY: Shortness of breath, elevated D-dimer Study: CTA chest with contrast for pulmonary embolus Comparison: 03/24/2018 Technique: Axial post-contrast images with coronal, sagittal, and three-dimensional maximum intensity projection images obtained and evaluated. Dose reduction procedures were used with mA/kv adjusted for body size. Findings: There is no evidence for acute pulmonary thromboembolic disease. Examination of the mediastinum demonstrated no evidence for mediastinal masses, enlarged mediastinal or enlarged hilar adenopathy, significant aortic abnormality, or pleural effusion. No chest wall or axillary abnormality is identified. Those portions of the upper abdominal organs visualized were within normal limits with the exception of some dilated small bowel loops which will be further evaluated with the patient's upcoming abdominal CT. Examination of the lung [place] demonstrated no evidence for significant nodules, masses, alveolar infiltrates, areas of consolidation, peribronchial thickening, or bronchiectasis. There is a focus of subsegmental atelectasis in the right lung base. IMPRESSION: No evidence for acute pulmonary thromboembolic disease Lungs clear with the exception of subsegmental atelectasis in the right lung base. Reported By:
--- NOTE | 2018-08-25 08:17 | CT ---
HISTORY: Nausea, vomiting Study: CT abdomen with contrast Comparison: 08/20/2018 CT abdomen and pelvis with contrast Technique: Axial post-contrast images with coronal and sagittal reformats. Dose reduction procedures were used with mA/kv adjusted for body size. Findings: The lung bases are clear with the exception of subsegmental atelectasis in the right lung base. The liver, spleen, adrenal glands, and pancreas are within normal limits. The patient is status post cholecystectomy. The kidneys are unobstructed. No stones or masses are identified. The abdominal aorta is normal. No intraperitoneal or retroperitoneal lymphadenopathy is identified. There is marked distention of the stomach with fluid. There is increasing dilatation of the duodenum and multiple jejunal loops when compared with the prior examination. There is transition to more normal size small bowel in the area of the mid small bowel. Findings are suggestive of a mid small bowel obstruction. The etiology is not obvious. Adhesion and internal herniations are possibilities. Further surgical evaluation is recommended. IMPRESSION: Findings consistent with worsening dilatation of the stomach, duodenum, and multiple jejunal loops with a transition to more normal size small bowel in the mid small bowel level. Findings are consistent with mid small bowel obstruction. Etiology is not obvious. Adhesion is a possibility. Further surgical evaluation is recommended. Reported By:
[2018-08-25] MEDS ORDERED: MAALOX or MYLANTA PO PRN (10:39)
[2018-08-25] MEDS ORDERED: NS 250 ML IV 250 ML ONE (10:46)
[2018-08-25] MEDS: PEPCID 20 MG IV PREMIX* 20 MG/50 ML BAG IV PRN ×2 (10:50→20:48)
[2018-08-25] MEDS: D5 1/2 NS 1000 ML 1,000 ML IV SCH ×2 (11:20→21:08)
[2018-08-25] MEDS: MILK OF MAGNESIA PO SCH (11:21)
[2018-08-25] MEDS: DILAUDID INJ IVP PRN ×3 (14:25→22:10)
[2018-08-25] MEDS: CIPRO IV 400 MG PREMIX* 400 MG/200 ML IV.SOLN. IV SCH ×2 (14:31→20:45)
[2018-08-25] MEDS ORDERED: PHARMACY CONSULT - DOSE _____ XX SCH (16:00)
--- NOTE | 2018-08-25 16:05 | DR.PROGNOT ---
Hospital Progress Notes - Progress Note for Day of: Progress Note Date: 08/25/18 - Chief Complaint Chief Complaint: Pt is admitted with abdominal pain , nausea and vomiting . he is s/p laparotomy , lysis of adhesions . he is passing flatus though . - Past Medical Family Social History Past Med/Fam/Surg Hx: No changes since H&P Allergies: Allergies No Known Drug Allergies [NKDA] Allergy (Verified 08/20/18 15:24) - Review Of Systems ROS: No change since H&P - Vital Signs Vital Signs: Temperature 98.1 F Pulse Rate [Left] 91 Pulse Rate 110 Respiratory Rate 19 Blood Pressure [Right Arm] 133/83 Blood Pressure [Left Arm] 132/93 Blood Pressure 120/78 O2 Sat by Pulse Oximetry 2 - Physical Exam Oriented: Normal Eyes: Normal Ear: Normal Nose: Normal Respiratory: Normal Cardiovascular: Normal : Normal GI:Auscultation: Decreased GI:Palpation: Normal GI: Tenderness: Diffuse (generalized tenderness , BS+ but hypoactive ) Skin: Normal Musculoskeletal: Normal Psychiatric: Normal Speech Pattern: Clear, Appropriate - Laboratory and Diagnostics Result Diagrams: 08/25/18 01:34 08/25/18 01:34 Labs: Laboratory WBC 10.8 X10^3/uL (3.6-10.0) H 08/25/18 01:34 RBC 5.39 X10^6/uL (4.7-6.0) 08/25/18 01:34 Hgb 16.5 g/dL (13.5-18.0) D 08/25/18 01:34 Hct 46.3 % (42.0-54.0) 08/25/18 01:34 MCV 85.8 fL (80.0-100.0) 08/25/18 01:34 MCH 30.6 pg (27.0-34.0) 08/25/18 01:34 MCHC 35.7 g/dL (33.0-35.0) H 08/25/18 01:34 RDW 12.5 % (11.6-16.5) 08/25/18 01:34 Plt Count 338 X10^3/uL (150.0-450.0) 08/25/18 01:34 MPV 7.9 fL (7.4-11.0) 08/25/18 01:34 Neut % (Auto) 88.2 % (42.0-75.0) H 08/25/18 01:34 Lymph % (Auto) 5.4 % (21.0-51.0) L 08/25/18 01:34 [place] % (Auto) 5.6 % (0.0-13.0) 08/25/18 01:34 Eos % (Auto) 0.7 % (0.9-2.9) L 08/25/18 01:34 Baso % (Auto) 0.1 % (0.2-1.0) L 08/25/18 01:34 Neut # (Auto) 9.5 x10^3/uL (2.2-4.8) H 08/25/18 01:34 Lymph # (Auto) 0.6 X10^3/uL (1.3-2.9) L 08/25/18 01:34 [place] # (Auto) 0.6 x10^3/uL (0.3-0.8) 08/25/18 01:34 Eos # (Auto) 0.1 x10^3/uL (0.0-0.2) 08/25/18 01:34 Baso # (Auto) 0.0 X10^3/uL (0.0-0.1) 08/25/18 01:34 Absolute Nucleated RBC 1.5 /100WBC 08/25/18 01:34 D-Dimer 4670 ng/mL (0-400) H* 08/25/18 01:34 Sodium 137 mmol/L (136-145) 08/25/18 01:34 Corrected Sodium 138 mmol/L (136-145) 08/25/18 01:34 Potassium 3.4 mmol/L (3.5-5.1) L 08/25/18 01:34 Chloride 99 mmol/L (98-107) 08/25/18 01:34 Carbon Dioxide 25.0 mmol/L (21-32) 08/25/18 01:34 BUN 12 mg/dL (7-18) 08/25/18 01:34 Creatinine 0.89 mg/dL (0.70-1.30) 08/25/18 01:34 Est GFR (MDRD) Af Amer > 60 (>60) 08/25/18 01:34 Est GFR (MDRD) Non-Af > 60 (>60) 08/25/18 01:34 Glucose 157 mg/dL (65-99) H 08/25/18 01:34 Calcium 10.0 mg/dL (8.5-10.1) 08/25/18 01:34 Corrected Calcium TNP 08/25/18 01:34 Total Bilirubin 1.10 mg/dL (0.2-1.0) H 08/25/18 01:34 AST 20 Units/L (15-37) 08/25/18 01:34 ALT 35 Units/L (12-78) 08/25/18 01:34 Alkaline Phosphatase 80 Units/L (46-116) 08/25/18 01:34 Total Protein 7.7 g/dL (6.4-8.2) 08/25/18 01:34 Albumin 3.4 g/dL (3.4-5.0) 08/25/18 01:34 Globulin 4.3 g/dL (2.5-4.5) 08/25/18 01:34 Albumin/Globulin Ratio 0.8 Ratio (1.1-2.1) L 08/25/18 01:34 Amylase 51 Units/L (25-115) 08/25/18 01:34 Lipase 509 Units/L (73-393) H 08/25/18 01:34 - Assessment and Plan 1: post operative ileus . abdominal adhesions . keep NPO. IVF . OOB with bin ekta . - Problem Patient Problems: Patient Problems Abdominal pain (Acute) R10.9 Small bowel obstruction (Acute) K56.604
[2018-08-25] MEDS: ZOFRAN INJ 4 MG VIAL IVP PRN (17:21)
[2018-08-25] MEDS ORDERED: NORCO 10/325 TAB PO PRN (17:37)
[2018-08-25] MEDS ORDERED: OFIRMEV IV 1000 MG VIAL 1,000 MG/100 ML VIAL IV PRN (17:37)
--- NOTE | 2018-08-25 17:55 | DR.H&P ---
H&P - History & Physical for Day of: H&P Date: 08/25/18 - Chief Complaint Chief Complaint: ABDOMINAL PAIN, N/V - History of Present Illness History of Present Illness: 48 WM ER ADMISSON AFTER PRESENTING WITH CO ABODMINAL PAIN AND N.V. PT IS S/P LAPAROTOMY LYSIS OF ADHESIONS, D/C'S YESTERDAY. PT STATES HE FELT OK AFTER D/C THEN CO ABDOMINAL PAIN INTRACTABLE N/V LAST PM. PT HAS PMH OF HTN, OA, GERD. PT ADMITTED FOR TREATMENT OF ACUTE ILLNESS. - Past Medical History Past Medical History: Arthritis, Hypertension Additional Medical History: PARTIAL SMALL BOWEL OBSTRUCTION 4 MONTHS AGO WITH HOSPITALIZATION. - Past Surgical History Surgical History: Appendectomy, Cholecystectomy, Ortho Surgery Additional Surgical History: Lysis of adhesions for SBO. - Family History Family Medical History: CT, Hypertension - Social History Does patient currently use any type of tobacco product: No Have you used tobacco products in the last 12 months: No Type of Tobacco Use: None Does any household member use tobacco: No Alcohol Use: Occasionally - Medications Home Medications: No Known Drug Allergies [NKDA] Allergy (Verified 08/20/18 15:24) - Review of Systems Constitutional: Weakness Eyes: No Symptoms Reported ENT: No Symptoms Reported Respiratory: No Symptoms Reported Cardiovascular: No Symptoms Reported Gastrointestinal: Nausea, Vomiting, Abdominal Pain Genitourinary: No Symptoms Reported Musculoskeletal: Back Pain Skin: Wound (CENTRAL POST OPERATIVE WOUND WITH CLEAN DRY DRESSING) - Physical Exam Vital Signs: Temperature 98.1 F Pulse Rate [Left] 90 Pulse Rate 110 Respiratory Rate 22 Blood Pressure [Right Arm] 133/83 Blood Pressure [Left Arm] 116/71 Blood Pressure 120/78 O2 Sat by Pulse Oximetry 94 Oriented: Normal Eyes: Normal Ear: Normal Nose: Normal Throat: Dry Respiratory: RLL Diminished, LLL Diminished Cardiovascular: Normal : Normal Auscultation: Bowel Sounds: Normal Palpation: Normal Tenderness: Diffuse Skin: Wound Musculoskeletal: Back:Lumbar Psychiatric: Normal Mood Description: Calm Affect: Anxious Speech Pattern: Clear, Appropriate - Assessment/Plan (1) Abdominal pain Qualifiers: Abdominal location: upper abdomen, unspecified Qualified Code(s): R10.10 - Upper abdominal pain, unspecified Status: Acute Plan: POST OPERATIVE, NPO. PAIN AND NAUSEA CONTROL. DR SHIN CONSULTING, WOUND CARE. AM LABS, VERIFY HOME MEDICATION (2) Partial obstruction of small intestine Status: Acute (3) Hypertension Status: Chronic (4) GERD (gastroesophageal reflux disease) Status: Chronic (5) Lumbar and sacral spondyloarthritis Status: Chronic - Allergies Allergies/Adverse Reactions: Allergies Allergy/AdvReac Type Severity Reaction Status Date / Time No Known Drug Allergies Allergy Verified 08/20/18 15:24 [NKDA]
[2018-08-25] MEDS ORDERED: MICRO K EXTEN CAP 10 MEQ PO PRN (19:27)
[2018-08-25] MEDS ORDERED: KLOR-CON PO PRN (19:27)
[2018-08-25] MEDS ORDERED: POTASSIUM CHL 60 MEQ/NS 0.45% 500 ML IV PRN (19:27)
[2018-08-25] MEDS ORDERED: POTASSIUM CHL 40 MEQ/NS 0.45% 500 ML IV PRN (19:27)
[2018-08-25] MEDS ORDERED: POTASSIUM CHLORIDE LIQ 20 MEQ UDC PO PRN (19:27)
[2018-08-25] MEDS: COLACE CAP 100 MG PO SCH (20:45)
[2018-08-25] MEDS ORDERED: PHENERGAN INJ 25 MG IM PRN (22:35)
[2018-08-25] MEDS ORDERED: REGLAN INJ 10 MG VIAL ONE (22:41)
[2018-08-25] MEDS ORDERED: PHENERGAN INJ 25 MG IM ONE (22:41)
[2018-08-25] MEDS: REGLAN INJ 10 MG VIAL IVP PRN (22:52)
[2018-08-26] MEDS ORDERED: ZOFRAN INJ 4 MG VIAL 16 MG, ATIVAN INJ 2 MG VIAL 1 MG, DECADRON INJ 10 MG in NS 50 ML I... IV PRN (00:37)
[2018-08-26] MEDS ORDERED: NS 50 ML IV 50 ML ONE (00:44)
[2018-08-26] MEDS ORDERED: DECADRON INJ PRESERVATIVE-FREE IM ONE (00:45)
[2018-08-26] MEDS ORDERED: ATIVAN INJ 2 MG VIAL ONE (00:46)
[2018-08-26 04:56] LABS: BASOPHILS % (AUTO) 0.2 % (0.2-1.0); EOSINOPHILS % (AUTO) 0.5 % (0.9-2.9); HEMATOCRIT 42.1 % (42.0-54.0); LYMPHOCYTES # (AUTO) 0.5 X10^3/uL (1.3-2.9); LYMPHOCYTES % (AUTO) 4.9 % (21.0-51.0); MEAN CORPUSCULAR HEMOGLOBIN 30.6 pg (27.0-34.0); MEAN CORPUSCULAR HGB CONC 35.6 g/dL (33.0-35.0); MEAN CORPUSCULAR VOLUME 85.8 fL (80.0-100.0); MEAN PLATELET VOLUME 7.5 fL (7.4-11.0); MONOCYTES # (AUTO) 0.4 x10^3/uL (0.3-0.8); MONOCYTES % (AUTO) 3.5 % (0.0-13.0); NEUTROPHILS # (AUTO) 9.3 x10^3/uL (2.2-4.8); NEUTROPHILS % (AUTO) 90.9 % (42.0-75.0); PLATELET COUNT 339 X10^3/uL (150.0-450.0); WHITE BLOOD COUNT 10.3 X10^3/uL (3.6-10.0)
[2018-08-26] MEDS: D5 1/2 NS 1000 ML 1,000 ML IV SCH ×3 (05:01→23:30)
[2018-08-26 05:13] LABS: ALANINE AMINOTRANSFERASE 29 Units/L (12-78); ALBUMIN 3.1 g/dL (3.4-5.0); ALKALINE PHOSPHATASE 66 Units/L (46-116); AMYLASE 39 Units/L (25-115); ASPARTATE AMINO TRANSFERASE 20 Units/L (15-37); BLOOD UREA NITROGEN 13 mg/dL (7-18); CALCIUM 8.7 mg/dL (8.5-10.1); CARBON DIOXIDE 28.7 mmol/L (21-32); CHLORIDE 100 mmol/L (98-107); COR CA(FOR HYPOALB) 9.4 mg/dL (8.5-10.1); COR NA(FOR HYPERGLY) 140 mmol/L (136-145); CREATININE 0.88 mg/dL (0.70-1.30); LIPASE 346 Units/L (73-393); SODIUM 138 mmol/L (136-145); TOTAL PROTEIN 6.8 g/dL (6.4-8.2); eGFR NON BLACK RACES > 60 (>60)
[2018-08-26 07:09] LABS: PLATELET MORPHOLOGY COMMENT NORMAL (NORMAL)
[2018-08-26] MEDS: ZOFRAN INJ 4 MG VIAL IVP PRN ×3 (08:25→18:20)
[2018-08-26 09:44] LABS: BILIRUBIN,URINE 1+ (NEGATIVE); BLOOD/HEMOGLOBIN,URINE 1+ (NEGATIVE); GLUCOSE, URINE 2+ (NEGATIVE); KETONES,URINE 1+ (NEGATIVE); LEUKOCYTE ESTERASE ,URINE 1+ (NEGATIVE); NITRITES,URINE NEGATIVE (NEGATIVE); PROTEIN,URINE 2+ (NEGATIVE); UROBILINOGEN,URINE 2+ (NORMAL)
[2018-08-26 09:45] LABS: APPEARANCE,URINE CLEAR (CLEAR); COLOR,URINE DARK YELLOW (YELLOW)
[2018-08-26] MEDS: CIPRO IV 400 MG PREMIX* 400 MG/200 ML IV.SOLN. IV SCH ×2 (09:50→21:40)
[2018-08-26 09:51] LABS: BACTERIA,URINE NEGATIVE /HPF (NEGATIVE); RBC,URINE 0-2 /HPF (NONE SEEN); SQUAMOUS EPITHELIAL CELL,UR NEGATIVE /HPF (NEGATIVE)
[2018-08-26 09:52] LABS: MUCUS,URINE MODERATE /HPF (NEGATIVE)
[2018-08-26] MEDS: LOVENOX INJ 40 MG SYR SC SCH (09:59)
[2018-08-26] MEDS: MILK OF MAGNESIA PO SCH (10:06)
[2018-08-26] MEDS: DILAUDID INJ IVP PRN ×3 (10:30→19:55)
--- NOTE | 2018-08-26 10:39 | RAD ---
HISTORY: Nausea and vomiting, recent abdominal surgery. Study: KUB Comparison: CT scan of the abdomen pelvis done 08/25/2018. Findings: There is gaseous distention of multiple small bowel loops in the left abdomen with contrast material present and some air seen throughout the colon including the rectum. Findings have the appearance of a partial small bowel obstruction. There are skin clips present within the midline of the lower abdomen and pelvis. Surgical clips are present from cholecystectomy. Lung bases are clear. Osseous structures are intact. No opaque stone is seen. IMPRESSION: Findings compatible with partial small bowel obstruction. Reported By:
--- NOTE | 2018-08-26 11:17 | DR.PROGNOT ---
Hospital Progress Notes - Progress Note for Day of: Progress Note Date: 08/26/18 - Chief Complaint Chief Complaint: still with moderate abdominal pain , no vomiting . passing flatus . serum lipase is elevated . abdominal xray showed slight dilated small bowel with air and contrast in the colon ( ileus type . ) - Past Medical Family Social History Past Med/Fam/Surg Hx: No changes since H&P Allergies: Allergies No Known Drug Allergies [NKDA] Allergy (Verified 08/20/18 15:24) - Review Of Systems ROS: No change since H&P - Vital Signs Vital Signs: Temperature 98.3 F Pulse Rate [Left] 90 Pulse Rate 84 Respiratory Rate 24 Blood Pressure [Right Arm] 133/83 Blood Pressure [Left Arm] 116/71 Blood Pressure 120/82 O2 Sat by Pulse Oximetry 91 - Physical Exam Oriented: Normal Eyes: Normal Ear: Normal Nose: Normal Throat: Dry Respiratory: Normal Cardiovascular: Normal : Normal GI:Auscultation: Decreased GI:Palpation: Normal GI: Tenderness: Diffuse Skin: Wound Musculoskeletal: Back:Lumbar Psychiatric: Normal Mood Description: Calm Affect: Anxious Speech Pattern: Clear, Appropriate - Laboratory and Diagnostics Result Diagrams: 08/26/18 04:00 08/26/18 04:00 Labs: Laboratory WBC 10.3 X10^3/uL (3.6-10.0) H 08/26/18 04:00 RBC 4.90 X10^6/uL (4.7-6.0) 08/26/18 04:00 Hgb 15.0 g/dL (13.5-18.0) 08/26/18 04:00 Hct 42.1 % (42.0-54.0) 08/26/18 04:00 MCV 85.8 fL (80.0-100.0) 08/26/18 04:00 MCH 30.6 pg (27.0-34.0) 08/26/18 04:00 MCHC 35.6 g/dL (33.0-35.0) H 08/26/18 04:00 RDW 13.0 % (11.6-16.5) 08/26/18 04:00 Plt Count 339 X10^3/uL (150.0-450.0) 08/26/18 04:00 Plt Count Comment Adequate (ADEQUATE) 08/26/18 04:00 MPV 7.5 fL (7.4-11.0) 08/26/18 04:00 Neut % (Auto) 90.9 % (42.0-75.0) H 08/26/18 04:00 Lymph % (Auto) 4.9 % (21.0-51.0) L 08/26/18 04:00 [place] % (Auto) 3.5 % (0.0-13.0) 08/26/18 04:00 Eos % (Auto) 0.5 % (0.9-2.9) L 08/26/18 04:00 Baso % (Auto) 0.2 % (0.2-1.0) 08/26/18 04:00 Neut # (Auto) 9.3 x10^3/uL (2.2-4.8) H 08/26/18 04:00 Lymph # (Auto) 0.5 X10^3/uL (1.3-2.9) L 08/26/18 04:00 [place] # (Auto) 0.4 x10^3/uL (0.3-0.8) 08/26/18 04:00 Eos # (Auto) 0.0 x10^3/uL (0.0-0.2) 08/26/18 04:00 Baso # (Auto) 0.0 X10^3/uL (0.0-0.1) 08/26/18 04:00 Absolute Nucleated RBC 0.0 /100WBC 08/26/18 04:00 Total Counted 100 08/26/18 04:00 Neutrophils % (Manual) 89 % (39-76) H 08/26/18 04:00 Lymphocytes % (Manual) 6 % (13-43) L 08/26/18 04:00 Monocytes % (Manual) 2 % (4-9) L 08/26/18 04:00 Eosinophils % (Manual) 3 % (0-6) 08/26/18 04:00 Plt Morphology Comment Normal (NORMAL) 08/26/18 04:00 RBC Morphology Normal (NORMAL) 08/26/18 04:00 D-Dimer 4670 ng/mL (0-400) H* 08/25/18 01:34 Sodium 138 mmol/L (136-145) 08/26/18 04:00 Corrected Sodium 140 mmol/L (136-145) 08/26/18 04:00 Potassium 3.3 mmol/L (3.5-5.1) L 08/26/18 04:00 Chloride 100 mmol/L (98-107) 08/26/18 04:00 Carbon Dioxide 28.7 mmol/L (21-32) 08/26/18 04:00 BUN 13 mg/dL (7-18) 08/26/18 04:00 Creatinine 0.88 mg/dL (0.70-1.30) 08/26/18 04:00 Est GFR (MDRD) Af Amer > 60 (>60) 08/26/18 04:00 Est GFR (MDRD) Non-Af > 60 (>60) 08/26/18 04:00 Glucose 177 mg/dL (65-99) H 08/26/18 04:00 Calcium 8.7 mg/dL (8.5-10.1) 08/26/18 04:00 Corrected Calcium 9.4 mg/dL (8.5-10.1) 08/26/18 04:00 Magnesium 2.1 mg/dL (1.7-2.9) 08/25/18 01:34 Total Bilirubin 0.60 mg/dL (0.2-1.0) 08/26/18 04:00 AST 20 Units/L (15-37) 08/26/18 04:00 ALT 29 Units/L (12-78) 08/26/18 04:00 Alkaline Phosphatase 66 Units/L (46-116) 08/26/18 04:00 Total Protein 6.8 g/dL (6.4-8.2) 08/26/18 04:00 Albumin 3.1 g/dL (3.4-5.0) L 08/26/18 04:00 Globulin 3.7 g/dL (2.5-4.5) 08/26/18 04:00 Albumin/Globulin Ratio 0.8 Ratio (1.1-2.1) L 08/26/18 04:00 Amylase 39 Units/L (25-115) 08/26/18 04:00 Lipase 346 Units/L (73-393) 08/26/18 04:00 Specimen Type Clean catch urine 08/26/18 09:30 Urine Color Dark yellow (YELLOW) 08/26/18 09:30 Urine Appearance Clear (CLEAR) 08/26/18 09:30 Urine pH 6.0 (5.0 - 8.0) 08/26/18 09:30 Ur Specific [place] 1.015 (1.000-1.030) 08/26/18 09:30 Urine Protein 2+ (NEGATIVE) 08/26/18 09:30 Urine Glucose (UA) 2+ (NEGATIVE) 08/26/18 09:30 Urine Ketones 1+ (NEGATIVE) 08/26/18 09:30 Urine Occult Blood 1+ (NEGATIVE) 08/26/18 09:30 Urine Nitrite Negative (NEGATIVE) 08/26/18 09:30 Urine Bilirubin 1+ (NEGATIVE) 08/26/18 09:30 Urine Urobilinogen 2+ (NORMAL) 08/26/18 09:30 Ur Leukocyte Esterase 1+ (NEGATIVE) 08/26/18 09:30 Urine RBC 0-2 /HPF (NONE SEEN) 08/26/18 09:30 Urine WBC 0-2 /HPF (NONE SEEN) 08/26/18 09:30 Ur Squamous Epith Cells Negative /HPF (NEGATIVE) 08/26/18 09:30 Urine Bacteria Negative /HPF (NEGATIVE) 08/26/18 09:30 Urine Mucus Moderate /HPF (NEGATIVE) 08/26/18 09:30 Ur Culture Indicated? No/not indicated 08/26/18 09:30 - Assessment and Plan 1: post operative ileus . abdominal adhesions . pancreatitis. will start clear liquid , IVF . OOB with binder . check lipid and thyroid panel . OOB , - Problem Patient Problems: Patient Problems Abdominal pain (Acute) R10.9 Small bowel obstruction (Acute) K56.605
[2018-08-26 11:40] LABS: CHOL/HDL RATIO 6.4 (0.0-5.0); T4 (THYROXINE) 9.1 ug/dL (4.7-13.3); TSH (3RD GENERATION) 2.086 uIU/mL (0.358-3.74)
[2018-08-26] MEDS: K-RIDER 10 MEQ/NS 100 ML 10 MEQ/100 ML BAG IV PRN ×3 (19:33→23:30)
[2018-08-26] MEDS: COLACE CAP 100 MG PO SCH (21:11)
[2018-08-26] MEDS: PEPCID 20 MG IV PREMIX* 20 MG/50 ML BAG IV PRN (21:12)
[2018-08-27] MEDS: K-RIDER 10 MEQ/NS 100 ML 10 MEQ/100 ML BAG IV PRN ×3 (00:44→07:37)
[2018-08-27 04:48] LABS: BASOPHILS % (AUTO) 0.2 % (0.2-1.0); EOSINOPHILS # (AUTO) 0.2 x10^3/uL (0.0-0.2); EOSINOPHILS % (AUTO) 1.9 % (0.9-2.9); HEMATOCRIT 37.6 % (42.0-54.0); HEMOGLOBIN 13.4 g/dL (13.5-18.0); LYMPHOCYTES # (AUTO) 1.3 X10^3/uL (1.3-2.9); LYMPHOCYTES % (AUTO) 13.9 % (21.0-51.0); MEAN CORPUSCULAR HEMOGLOBIN 30.8 pg (27.0-34.0); MEAN CORPUSCULAR HGB CONC 35.7 g/dL (33.0-35.0); MEAN CORPUSCULAR VOLUME 86.5 fL (80.0-100.0); MEAN PLATELET VOLUME 7.4 fL (7.4-11.0); MONOCYTES # (AUTO) 0.7 x10^3/uL (0.3-0.8); MONOCYTES % (AUTO) 7.5 % (0.0-13.0); NEUTROPHILS # (AUTO) 7.3 x10^3/uL (2.2-4.8); NEUTROPHILS % (AUTO) 76.5 % (42.0-75.0); PLATELET COUNT 312 X10^3/uL (150.0-450.0); RED BLOOD COUNT 4.34 X10^6/uL (4.7-6.0); WHITE BLOOD COUNT 9.5 X10^3/uL (3.6-10.0)
[2018-08-27 04:59] LABS: ALANINE AMINOTRANSFERASE 43 Units/L (12-78); ALBUMIN 2.8 g/dL (3.4-5.0); ALKALINE PHOSPHATASE 61 Units/L (46-116); ASPARTATE AMINO TRANSFERASE 29 Units/L (15-37); BLOOD UREA NITROGEN 10 mg/dL (7-18); CALCIUM 8.5 mg/dL (8.5-10.1); CARBON DIOXIDE 30.8 mmol/L (21-32); CHLORIDE 102 mmol/L (98-107); COR CA(FOR HYPOALB) 9.5 mg/dL (8.5-10.1); COR NA(FOR HYPERGLY) 139 mmol/L (136-145); CREATININE 0.86 mg/dL (0.70-1.30); SODIUM 139 mmol/L (136-145); TOTAL PROTEIN 6.3 g/dL (6.4-8.2); eGFR NON BLACK RACES > 60 (>60)
--- NOTE | 2018-08-27 06:10 | RAD ---
HISTORY: Abdominal pain, small-bowel obstruction Study: KUB Comparison: 08/26/2018 Findings: There are moderately dilated loops of small bowel in the left upper quadrant slightly less distended than on the prior examination. Residual contrast is again identified throughout the colon. Findings are again consistent with partial small bowel obstruction. Surgical evie are present in the mid abdomen. No abnormal masses or abnormal calcifications are identified. IMPRESSION: Findings consistent with partial small bowel obstruction with slight improvement in the small bowel distention noted on the prior examination. Reported By:
[2018-08-27] MEDS: D5 1/2 NS 1000 ML 1,000 ML IV SCH ×3 (06:23→23:25)
[2018-08-27] MEDS: REGLAN INJ 10 MG VIAL IVP PRN (07:37)
[2018-08-27] MEDS: DILAUDID INJ IVP PRN ×4 (07:38→19:54)
[2018-08-27] MEDS: CIPRO IV 400 MG PREMIX* 400 MG/200 ML IV.SOLN. IV SCH ×2 (08:45→20:49)
[2018-08-27] MEDS: PEPCID 20 MG IV PREMIX* 20 MG/50 ML BAG IV SCH ×2 (08:52→19:59)
[2018-08-27] MEDS: MILK OF MAGNESIA PO SCH (08:55)
[2018-08-27] MEDS: LOVENOX INJ 40 MG SYR SC SCH (08:55)
--- NOTE | 2018-08-27 10:00 | DR.PROGNOT ---
Hospital Progress Notes - Progress Note for Day of: Progress Note Date: 08/27/18 - Chief Complaint Chief Complaint: still with moderate abdominal pain , no vomiting . passing flatus . serum lipase is still elevated . abdominal xray showed improvement os SBO with air and contrast in the colon ( ileus type . ). TSH and Lipid panel WNL . - Past Medical Family Social History Past Med/Fam/Surg Hx: No changes since H&P Allergies: Allergies No Known Drug Allergies [NKDA] Allergy (Verified 08/20/18 15:24) - Review Of Systems ROS: No change since H&P - Vital Signs Vital Signs: Temperature 98 F Pulse Rate [Left] 90 Pulse Rate 92 Respiratory Rate 17 Blood Pressure [Right Arm] 133/83 Blood Pressure [Left Arm] 116/71 Blood Pressure 128/82 O2 Sat by Pulse Oximetry 99 - Physical Exam Oriented: Normal Eyes: Normal Ear: Normal Nose: Normal Throat: Dry Respiratory: Normal Cardiovascular: Normal : Normal GI:Auscultation: Decreased GI:Palpation: Normal GI: Tenderness: Diffuse Skin: Wound Musculoskeletal: Back:Lumbar Psychiatric: Normal Mood Description: Calm Affect: Anxious Speech Pattern: Clear, Appropriate - Laboratory and Diagnostics Result Diagrams: 08/27/18 04:08 08/27/18 04:08 Labs: Laboratory WBC 9.5 X10^3/uL (3.6-10.0) 08/27/18 04:08 RBC 4.34 X10^6/uL (4.7-6.0) L 08/27/18 04:08 Hgb 13.4 g/dL (13.5-18.0) L 08/27/18 04:08 Hct 37.6 % (42.0-54.0) L 08/27/18 04:08 MCV 86.5 fL (80.0-100.0) 08/27/18 04:08 MCH 30.8 pg (27.0-34.0) 08/27/18 04:08 MCHC 35.7 g/dL (33.0-35.0) H 08/27/18 04:08 RDW 13.0 % (11.6-16.5) 08/27/18 04:08 Plt Count 312 X10^3/uL (150.0-450.0) 08/27/18 04:08 Plt Count Comment Adequate (ADEQUATE) 08/26/18 04:00 MPV 7.4 fL (7.4-11.0) 08/27/18 04:08 Neut % (Auto) 76.5 % (42.0-75.0) H 08/27/18 04:08 Lymph % (Auto) 13.9 % (21.0-51.0) L 08/27/18 04:08 [place] % (Auto) 7.5 % (0.0-13.0) 08/27/18 04:08 Eos % (Auto) 1.9 % (0.9-2.9) 08/27/18 04:08 Baso % (Auto) 0.2 % (0.2-1.0) 08/27/18 04:08 Neut # (Auto) 7.3 x10^3/uL (2.2-4.8) H 08/27/18 04:08 Lymph # (Auto) 1.3 X10^3/uL (1.3-2.9) 08/27/18 04:08 [place] # (Auto) 0.7 x10^3/uL (0.3-0.8) 08/27/18 04:08 Eos # (Auto) 0.2 x10^3/uL (0.0-0.2) 08/27/18 04:08 Baso # (Auto) 0.0 X10^3/uL (0.0-0.1) 08/27/18 04:08 Absolute Nucleated RBC 0.1 /100WBC 08/27/18 04:08 Total Counted 100 08/26/18 04:00 Neutrophils % (Manual) 89 % (39-76) H 08/26/18 04:00 Lymphocytes % (Manual) 6 % (13-43) L 08/26/18 04:00 Monocytes % (Manual) 2 % (4-9) L 08/26/18 04:00 Eosinophils % (Manual) 3 % (0-6) 08/26/18 04:00 Plt Morphology Comment Normal (NORMAL) 08/26/18 04:00 RBC Morphology Normal (NORMAL) 08/26/18 04:00 D-Dimer 4670 ng/mL (0-400) H* 08/25/18 01:34 Sodium 139 mmol/L (136-145) 08/27/18 04:08 Corrected Sodium 139 mmol/L (136-145) 08/27/18 04:08 Potassium 3.5 mmol/L (3.5-5.1) 08/27/18 04:08 Chloride 102 mmol/L (98-107) 08/27/18 04:08 Carbon Dioxide 30.8 mmol/L (21-32) 08/27/18 04:08 BUN 10 mg/dL (7-18) 08/27/18 04:08 Creatinine 0.86 mg/dL (0.70-1.30) 08/27/18 04:08 Est GFR (MDRD) Af Amer > 60 (>60) 08/27/18 04:08 Est GFR (MDRD) Non-Af > 60 (>60) 08/27/18 04:08 Glucose 111 mg/dL (65-99) H 08/27/18 04:08 Calcium 8.5 mg/dL (8.5-10.1) 08/27/18 04:08 Corrected Calcium 9.5 mg/dL (8.5-10.1) 08/27/18 04:08 Magnesium 2.1 mg/dL (1.7-2.9) 08/27/18 04:08 Total Bilirubin 0.60 mg/dL (0.2-1.0) 08/27/18 04:08 AST 29 Units/L (15-37) 08/27/18 04:08 ALT 43 Units/L (12-78) 08/27/18 04:08 Alkaline Phosphatase 61 Units/L (46-116) 08/27/18 04:08 Total Protein 6.3 g/dL (6.4-8.2) L 08/27/18 04:08 Albumin 2.8 g/dL (3.4-5.0) L 08/27/18 04:08 Globulin 3.5 g/dL (2.5-4.5) 08/27/18 04:08 Albumin/Globulin Ratio 0.8 Ratio (1.1-2.1) L 08/27/18 04:08 Triglycerides 114 mg/dL (0-150) 08/26/18 04:00 Cholesterol 154 mg/dL (0-200) 08/26/18 04:00 LDL Cholesterol, Calc 107 mg/dL (0-100) H 08/26/18 04:00 HDL Cholesterol 24 mg/dL (40-60) L 08/26/18 04:00 Cholesterol/HDL Ratio 6.4 (0.0-5.0) H 08/26/18 04:00 Amylase 39 Units/L (25-115) 08/26/18 04:00 Lipase 346 Units/L (73-393) 08/26/18 04:00 Thyroxine (T4) 9.1 ug/dL (4.7-13.3) 08/26/18 04:00 T3 Uptake 35.0 % (30-40) 08/26/18 04:00 TSH 3rd Generation 2.086 uIU/mL (0.358-3.74) 08/26/18 04:00 Specimen Type Clean catch urine 08/26/18 09:30 Urine Color Dark yellow (YELLOW) 08/26/18 09:30 Urine Appearance Clear (CLEAR) 08/26/18 09:30 Urine pH 6.0 (5.0 - 8.0) 08/26/18 09:30 Ur Specific [place] 1.015 (1.000-1.030) 08/26/18 09:30 Urine Protein 2+ (NEGATIVE) 08/26/18 09:30 Urine Glucose (UA) 2+ (NEGATIVE) 08/26/18 09:30 Urine Ketones 1+ (NEGATIVE) 08/26/18 09:30 Urine Occult Blood 1+ (NEGATIVE) 08/26/18 09:30 Urine Nitrite Negative (NEGATIVE) 08/26/18 09:30 Urine Bilirubin 1+ (NEGATIVE) 08/26/18 09:30 Urine Urobilinogen 2+ (NORMAL) 08/26/18 09:30 Ur Leukocyte Esterase 1+ (NEGATIVE) 08/26/18 09:30 Urine RBC 0-2 /HPF (NONE SEEN) 08/26/18 09:30 Urine WBC 0-2 /HPF (NONE SEEN) 08/26/18 09:30 Ur Squamous Epith Cells Negative /HPF (NEGATIVE) 08/26/18 09:30 Urine Bacteria Negative /HPF (NEGATIVE) 08/26/18 09:30 Urine Mucus Moderate /HPF (NEGATIVE) 08/26/18 09:30 Ur Culture Indicated? No/not indicated 08/26/18 09:30 - Assessment and Plan 1: post operative ileus . subsiding pancreatitis. will start clear liquid , IVF . OOB with binder . OOB , - Problem Patient Problems: Patient Problems Abdominal pain (Acute) R10.9 Small bowel obstruction (Acute) K56.600
[2018-08-27] MEDS: CARAFATE ORAL SUSP PO SCH ×2 (18:28→19:59)
[2018-08-27] MEDS: ZOFRAN INJ 4 MG VIAL IVP PRN (19:58)
[2018-08-27] MEDS: COLACE CAP 100 MG PO SCH (19:59)
[2018-08-28] MEDS: D5 1/2 NS 1000 ML 1,000 ML IV SCH ×5 (00:19→22:00)
[2018-08-28] MEDS: REGLAN INJ 10 MG VIAL IVP PRN (01:11)
[2018-08-28] MEDS: DILAUDID INJ IVP PRN ×5 (01:12→22:46)
[2018-08-28] MEDS: CARAFATE ORAL SUSP PO SCH ×4 (05:34→20:34)
[2018-08-28 06:10] LABS: BASOPHILS % (AUTO) 0.2 % (0.2-1.0); EOSINOPHILS # (AUTO) 0.4 x10^3/uL (0.0-0.2); EOSINOPHILS % (AUTO) 5.5 % (0.9-2.9); HEMATOCRIT 37.5 % (42.0-54.0); HEMOGLOBIN 13.1 g/dL (13.5-18.0); LYMPHOCYTES # (AUTO) 1.4 X10^3/uL (1.3-2.9); LYMPHOCYTES % (AUTO) 22.2 % (21.0-51.0); MEAN CORPUSCULAR HEMOGLOBIN 30.3 pg (27.0-34.0); MEAN CORPUSCULAR VOLUME 86.6 fL (80.0-100.0); MEAN PLATELET VOLUME 7.1 fL (7.4-11.0); MONOCYTES # (AUTO) 0.6 x10^3/uL (0.3-0.8); NEUTROPHILS # (AUTO) 3.9 x10^3/uL (2.2-4.8); NEUTROPHILS % (AUTO) 62.1 % (42.0-75.0); PLATELET COUNT 273 X10^3/uL (150.0-450.0); RED BLOOD COUNT 4.33 X10^6/uL (4.7-6.0); RED CELL DISTRIBUTION WIDTH 12.9 % (11.6-16.5); WHITE BLOOD COUNT 6.3 X10^3/uL (3.6-10.0)
[2018-08-28 06:41] LABS: ALANINE AMINOTRANSFERASE 53 Units/L (12-78); ALBUMIN 2.7 g/dL (3.4-5.0); ALKALINE PHOSPHATASE 58 Units/L (46-116); ASPARTATE AMINO TRANSFERASE 28 Units/L (15-37); BLOOD UREA NITROGEN 7 mg/dL (7-18); CARBON DIOXIDE 28.8 mmol/L (21-32); CHLORIDE 104 mmol/L (98-107); CREATININE 0.87 mg/dL (0.70-1.30); SODIUM 139 mmol/L (136-145); TOTAL PROTEIN 5.9 g/dL (6.4-8.2); eGFR NON BLACK RACES > 60 (>60)
--- NOTE | 2018-08-28 06:49 | RAD ---
HISTORY: Small-bowel obstruction Study: KUB Comparison: 08/27/2018, CT abdomen pelvis 08/25/2018 Findings: Contrast seen throughout the colon from prior CT examination. The previously no small bowel dilatation is no longer identified. Findings would seem consistent with improving or resolving small bowel obstruction. If clinically indicated CT follow-up would be confirmatory. No abnormal masses or abnormal calcifications are identified. Surgical evie are seen in the mid abdomen. IMPRESSION: Resolution of the previously noted dilated left upper quadrant small bowel which may indicate improvement or resolution in the small-bowel obstruction being followed. Follow-up CT abdomen pelvis would be confirmatory if clinically indicated Reported By:
[2018-08-28 06:57] LABS: BAND NEUTROPHILS % 3 % (0-10); PLATELET MORPHOLOGY COMMENT NORMAL (NORMAL)
[2018-08-28] MEDS: K-DUR TAB 20 MEQ PO PRN (07:37)
[2018-08-28] MEDS: LOVENOX INJ 40 MG SYR SC SCH (08:38)
[2018-08-28] MEDS: MILK OF MAGNESIA PO SCH (08:38)
[2018-08-28] MEDS: PEPCID 20 MG IV PREMIX* 20 MG/50 ML BAG IV SCH ×2 (08:39→20:34)
[2018-08-28] MEDS: CIPRO IV 400 MG PREMIX* 400 MG/200 ML IV.SOLN. IV SCH ×2 (08:39→20:34)
[2018-08-28] MEDS: ZOFRAN INJ 4 MG VIAL IVP PRN ×2 (10:24→19:18)
--- NOTE | 2018-08-28 15:11 | DR.PROGNOT ---
Hospital Progress Notes - Progress Note for Day of: Progress Note Date: 08/28/18 - Chief Complaint Chief Complaint: less abdominal pain , no vomiting . passing flatus . serum lipase normal 314. abdominal xray showed normal pattern . - Past Medical Family Social History Past Med/Fam/Surg Hx: No changes since H&P Allergies: Allergies No Known Drug Allergies [NKDA] Allergy (Verified 08/20/18 15:24) - Review Of Systems ROS: No change since H&P - Vital Signs Vital Signs: Temperature 97.5 F Pulse Rate [Left] 90 Pulse Rate 65 Respiratory Rate 12 Blood Pressure [Right Arm] 133/83 Blood Pressure [Left Arm] 116/71 Blood Pressure 154/93 O2 Sat by Pulse Oximetry 98 - Physical Exam Oriented: Normal Eyes: Normal Ear: Normal Nose: Normal Throat: Dry Respiratory: Normal Cardiovascular: Normal : Normal GI:Auscultation: Decreased GI:Palpation: Normal GI: Tenderness: Diffuse (mild diffuse tenderness .) Skin: Wound Musculoskeletal: Back:Lumbar Psychiatric: Normal Mood Description: Calm Affect: Anxious Speech Pattern: Clear, Appropriate - Laboratory and Diagnostics Result Diagrams: 08/28/18 05:17 08/28/18 05:17 Labs: Laboratory WBC 6.3 X10^3/uL (3.6-10.0) 08/28/18 05:17 RBC 4.33 X10^6/uL (4.7-6.0) L 08/28/18 05:17 Hgb 13.1 g/dL (13.5-18.0) L 08/28/18 05:17 Hct 37.5 % (42.0-54.0) L 08/28/18 05:17 MCV 86.6 fL (80.0-100.0) 08/28/18 05:17 MCH 30.3 pg (27.0-34.0) 08/28/18 05:17 MCHC 35.0 g/dL (33.0-35.0) 08/28/18 05:17 RDW 12.9 % (11.6-16.5) 08/28/18 05:17 Plt Count 273 X10^3/uL (150.0-450.0) 08/28/18 05:17 Plt Count Comment Adequate (ADEQUATE) 08/28/18 05:17 MPV 7.1 fL (7.4-11.0) L 08/28/18 05:17 Neut % (Auto) 62.1 % (42.0-75.0) 08/28/18 05:17 Lymph % (Auto) 22.2 % (21.0-51.0) 08/28/18 05:17 [place] % (Auto) 10.0 % (0.0-13.0) 08/28/18 05:17 Eos % (Auto) 5.5 % (0.9-2.9) H 08/28/18 05:17 Baso % (Auto) 0.2 % (0.2-1.0) 08/28/18 05:17 Neut # (Auto) 3.9 x10^3/uL (2.2-4.8) 08/28/18 05:17 Lymph # (Auto) 1.4 X10^3/uL (1.3-2.9) 08/28/18 05:17 [place] # (Auto) 0.6 x10^3/uL (0.3-0.8) 08/28/18 05:17 Eos # (Auto) 0.4 x10^3/uL (0.0-0.2) H 08/28/18 05:17 Baso # (Auto) 0.0 X10^3/uL (0.0-0.1) 08/28/18 05:17 Absolute Nucleated RBC 0.0 /100WBC 08/28/18 05:17 Total Counted 100 08/28/18 05:17 Neutrophils % (Manual) 61 % (39-76) 08/28/18 05:17 Band Neutrophils % 3 % (0-10) 08/28/18 05:17 Lymphocytes % (Manual) 25 % (13-43) 08/28/18 05:17 Monocytes % (Manual) 7 % (4-9) 08/28/18 05:17 Eosinophils % (Manual) 4 % (0-6) 08/28/18 05:17 Plt Morphology Comment Normal (NORMAL) 08/28/18 05:17 RBC Morphology Normal (NORMAL) 08/28/18 05:17 D-Dimer 4670 ng/mL (0-400) H* 08/25/18 01:34 Sodium 139 mmol/L (136-145) 08/28/18 05:17 Corrected Sodium TNP 08/28/18 05:17 Potassium 3.5 mmol/L (3.5-5.1) 08/28/18 05:17 Chloride 104 mmol/L (98-107) 08/28/18 05:17 Carbon Dioxide 28.8 mmol/L (21-32) 08/28/18 05:17 BUN 7 mg/dL (7-18) 08/28/18 05:17 Creatinine 0.87 mg/dL (0.70-1.30) 08/28/18 05:17 Est GFR (MDRD) Af Amer > 60 (>60) 08/28/18 05:17 Est GFR (MDRD) Non-Af > 60 (>60) 08/28/18 05:17 Glucose 108 mg/dL (65-99) H 08/28/18 05:17 Calcium 8.0 mg/dL (8.5-10.1) L 08/28/18 05:17 Corrected Calcium 9.0 mg/dL (8.5-10.1) 08/28/18 05:17 Magnesium 2.1 mg/dL (1.7-2.9) 08/27/18 04:08 Total Bilirubin 0.40 mg/dL (0.2-1.0) 08/28/18 05:17 AST 28 Units/L (15-37) 08/28/18 05:17 ALT 53 Units/L (12-78) 08/28/18 05:17 Alkaline Phosphatase 58 Units/L (46-116) 08/28/18 05:17 Total Protein 5.9 g/dL (6.4-8.2) L 08/28/18 05:17 Albumin 2.7 g/dL (3.4-5.0) L 08/28/18 05:17 Globulin 3.2 g/dL (2.5-4.5) 08/28/18 05:17 Albumin/Globulin Ratio 0.8 Ratio (1.1-2.1) L 08/28/18 05:17 Triglycerides 114 mg/dL (0-150) 08/26/18 04:00 Cholesterol 154 mg/dL (0-200) 08/26/18 04:00 LDL Cholesterol, Calc 107 mg/dL (0-100) H 08/26/18 04:00 HDL Cholesterol 24 mg/dL (40-60) L 08/26/18 04:00 Cholesterol/HDL Ratio 6.4 (0.0-5.0) H 08/26/18 04:00 Amylase 39 Units/L (25-115) 08/26/18 04:00 Lipase 314 Units/L (73-393) 08/28/18 05:17 Thyroxine (T4) 9.1 ug/dL (4.7-13.3) 08/26/18 04:00 T3 Uptake 35.0 % (30-40) 08/26/18 04:00 TSH 3rd Generation 2.086 uIU/mL (0.358-3.74) 08/26/18 04:00 Specimen Type Clean catch urine 08/26/18 09:30 Urine Color Dark yellow (YELLOW) 08/26/18 09:30 Urine Appearance Clear (CLEAR) 08/26/18 09:30 Urine pH 6.0 (5.0 - 8.0) 08/26/18 09:30 Ur Specific [place] 1.015 (1.000-1.030) 08/26/18 09:30 Urine Protein 2+ (NEGATIVE) 08/26/18 09:30 Urine Glucose (UA) 2+ (NEGATIVE) 08/26/18 09:30 Urine Ketones 1+ (NEGATIVE) 08/26/18 09:30 Urine Occult Blood 1+ (NEGATIVE) 08/26/18 09:30 Urine Nitrite Negative (NEGATIVE) 08/26/18 09:30 Urine Bilirubin 1+ (NEGATIVE) 08/26/18 09:30 Urine Urobilinogen 2+ (NORMAL) 08/26/18 09:30 Ur Leukocyte Esterase 1+ (NEGATIVE) 08/26/18 09:30 Urine RBC 0-2 /HPF (NONE SEEN) 08/26/18 09:30 Urine WBC 0-2 /HPF (NONE SEEN) 08/26/18 09:30 Ur Squamous Epith Cells Negative /HPF (NEGATIVE) 08/26/18 09:30 Urine Bacteria Negative /HPF (NEGATIVE) 08/26/18 09:30 Urine Mucus Moderate /HPF (NEGATIVE) 08/26/18 09:30 Ur Culture Indicated? No/not indicated 08/26/18 09:30 - Assessment and Plan 1: subsided SBO and post operative ileus . subsided pancreatitis. will advance diet and stay on low fat ,. OOB ,. f/u in one week. - Problem Patient Problems: Patient Problems Abdominal pain (Acute) R10.9 Small bowel obstruction (Acute) K56.60
--- NOTE | 2018-08-28 15:52 | PCM.PROG ---
Progress Note - Progress Note for Day of Date of Exam: 08/28/18 - Subjective Subjective: 48 WM ADMITTED ON 08/25 WITH POST OPERATIVE ILEUS FOLLOWING LAPARATOMY, LYSIS OF ADHESIONS LAST WEEK. PT HAD BEEN ON IV HYDRATION WITH PAIN CONTROL. PT STATED ON SOFT DIET LAST PM, TOLERATED WELL. PT CO NO BM. KUB THIS AM -Resolution of the previously noted dilated left upper quadrant small bowel which. may indicate improvement or resolution in the small-bowel obstruction. DR SHIN IS CONSULTING. BOWEL REGIMEN IN PLACE, ENCOURAGED AMBULATION AND ORAL HYDRATION. - Past Medical Family Social History Past Med/Fam/Surg Hx: No changes since H&P Allergies: Allergies No Known Drug Allergies [NKDA] Allergy (Verified 08/20/18 15:24) - Review of Systems ROS: No change since H&P - Vital Signs and I&O's Vital Signs: Temperature 97.5 F Pulse Rate [Left] 90 Pulse Rate 65 Respiratory Rate 16 Blood Pressure [Right Arm] 133/83 Blood Pressure [Left Arm] 116/71 Blood Pressure 154/93 O2 Sat by Pulse Oximetry 98 Intake and Output: Intake & Output 08/26/18 08/27/18 08/28/18 08/29/18 11:59 11:59 11:59 11:59 Intake Total 2477 / 2477 3684 / 3684 4270 / 4270 2049 Output Total 1350 / 1350 Balance 1127 / 1127 3684 / 3684 4270 / 4270 2049 - Physical Exam Oriented: Normal Eyes: Normal Ear: Normal Nose: Normal Throat: Dry Respiratory: Normal Cardiovascular: Normal : Normal Auscultation: Bowel Sounds: Decreased Tenderness: Diffuse (mild diffuse tenderness .) Skin: Wound Musculoskeletal: Back:Lumbar Psychiatric: Normal Mood Description: Calm Affect: Anxious Speech Pattern: Clear, Appropriate - Laboratory and Diagnostics Result Diagrams: 08/28/18 05:17 08/28/18 05:17 Labs: Laboratory WBC 6.3 X10^3/uL (3.6-10.0) 08/28/18 05:17 RBC 4.33 X10^6/uL (4.7-6.0) L 08/28/18 05:17 Hgb 13.1 g/dL (13.5-18.0) L 08/28/18 05:17 Hct 37.5 % (42.0-54.0) L 08/28/18 05:17 MCV 86.6 fL (80.0-100.0) 08/28/18 05:17 MCH 30.3 pg (27.0-34.0) 08/28/18 05:17 MCHC 35.0 g/dL (33.0-35.0) 08/28/18 05:17 RDW 12.9 % (11.6-16.5) 08/28/18 05:17 Plt Count 273 X10^3/uL (150.0-450.0) 08/28/18 05:17 Plt Count Comment Adequate (ADEQUATE) 08/28/18 05:17 MPV 7.1 fL (7.4-11.0) L 08/28/18 05:17 Neut % (Auto) 62.1 % (42.0-75.0) 08/28/18 05:17 Lymph % (Auto) 22.2 % (21.0-51.0) 08/28/18 05:17 [place] % (Auto) 10.0 % (0.0-13.0) 08/28/18 05:17 Eos % (Auto) 5.5 % (0.9-2.9) H 08/28/18 05:17 Baso % (Auto) 0.2 % (0.2-1.0) 08/28/18 05:17 Neut # (Auto) 3.9 x10^3/uL (2.2-4.8) 08/28/18 05:17 Lymph # (Auto) 1.4 X10^3/uL (1.3-2.9) 08/28/18 05:17 [place] # (Auto) 0.6 x10^3/uL (0.3-0.8) 08/28/18 05:17 Eos # (Auto) 0.4 x10^3/uL (0.0-0.2) H 08/28/18 05:17 Baso # (Auto) 0.0 X10^3/uL (0.0-0.1) 08/28/18 05:17 Absolute Nucleated RBC 0.0 /100WBC 08/28/18 05:17 Total Counted 100 08/28/18 05:17 Neutrophils % (Manual) 61 % (39-76) 08/28/18 05:17 Band Neutrophils % 3 % (0-10) 08/28/18 05:17 Lymphocytes % (Manual) 25 % (13-43) 08/28/18 05:17 Monocytes % (Manual) 7 % (4-9) 08/28/18 05:17 Eosinophils % (Manual) 4 % (0-6) 08/28/18 05:17 Plt Morphology Comment Normal (NORMAL) 08/28/18 05:17 RBC Morphology Normal (NORMAL) 08/28/18 05:17 D-Dimer 4670 ng/mL (0-400) H* 08/25/18 01:34 Sodium 139 mmol/L (136-145) 08/28/18 05:17 Corrected Sodium TNP 08/28/18 05:17 Potassium 3.5 mmol/L (3.5-5.1) 08/28/18 05:17 Chloride 104 mmol/L (98-107) 08/28/18 05:17 Carbon Dioxide 28.8 mmol/L (21-32) 08/28/18 05:17 BUN 7 mg/dL (7-18) 08/28/18 05:17 Creatinine 0.87 mg/dL (0.70-1.30) 08/28/18 05:17 Est GFR (MDRD) Af Amer > 60 (>60) 08/28/18 05:17 Est GFR (MDRD) Non-Af > 60 (>60) 08/28/18 05:17 Glucose 108 mg/dL (65-99) H 08/28/18 05:17 Calcium 8.0 mg/dL (8.5-10.1) L 08/28/18 05:17 Corrected Calcium 9.0 mg/dL (8.5-10.1) 08/28/18 05:17 Magnesium 2.1 mg/dL (1.7-2.9) 08/27/18 04:08 Total Bilirubin 0.40 mg/dL (0.2-1.0) 08/28/18 05:17 AST 28 Units/L (15-37) 08/28/18 05:17 ALT 53 Units/L (12-78) 08/28/18 05:17 Alkaline Phosphatase 58 Units/L (46-116) 08/28/18 05:17 Total Protein 5.9 g/dL (6.4-8.2) L 08/28/18 05:17 Albumin 2.7 g/dL (3.4-5.0) L 08/28/18 05:17 Globulin 3.2 g/dL (2.5-4.5) 08/28/18 05:17 Albumin/Globulin Ratio 0.8 Ratio (1.1-2.1) L 08/28/18 05:17 Triglycerides 114 mg/dL (0-150) 08/26/18 04:00 Cholesterol 154 mg/dL (0-200) 08/26/18 04:00 LDL Cholesterol, Calc 107 mg/dL (0-100) H 08/26/18 04:00 HDL Cholesterol 24 mg/dL (40-60) L 08/26/18 04:00 Cholesterol/HDL Ratio 6.4 (0.0-5.0) H 08/26/18 04:00 Amylase 39 Units/L (25-115) 08/26/18 04:00 Lipase 314 Units/L (73-393) 08/28/18 05:17 Thyroxine (T4) 9.1 ug/dL (4.7-13.3) 08/26/18 04:00 T3 Uptake 35.0 % (30-40) 08/26/18 04:00 TSH 3rd Generation 2.086 uIU/mL (0.358-3.74) 08/26/18 04:00 Specimen Type Clean catch urine 08/26/18 09:30 Urine Color Dark yellow (YELLOW) 08/26/18 09:30 Urine Appearance Clear (CLEAR) 08/26/18 09:30 Urine pH 6.0 (5.0 - 8.0) 08/26/18 09:30 Ur Specific [place] 1.015 (1.000-1.030) 08/26/18 09:30 Urine Protein 2+ (NEGATIVE) 08/26/18 09:30 Urine Glucose (UA) 2+ (NEGATIVE) 08/26/18 09:30 Urine Ketones 1+ (NEGATIVE) 08/26/18 09:30 Urine Occult Blood 1+ (NEGATIVE) 08/26/18 09:30 Urine Nitrite Negative (NEGATIVE) 08/26/18 09:30 Urine Bilirubin 1+ (NEGATIVE) 08/26/18 09:30 Urine Urobilinogen 2+ (NORMAL) 08/26/18 09:30 Ur Leukocyte Esterase 1+ (NEGATIVE) 08/26/18 09:30 Urine RBC 0-2 /HPF (NONE SEEN) 08/26/18 09:30 Urine WBC 0-2 /HPF (NONE SEEN) 08/26/18 09:30 Ur Squamous Epith Cells Negative /HPF (NEGATIVE) 08/26/18 09:30 Urine Bacteria Negative /HPF (NEGATIVE) 08/26/18 09:30 Urine Mucus Moderate /HPF (NEGATIVE) 08/26/18 09:30 Ur Culture Indicated? No/not indicated 08/26/18 09:30 - Plan (1) Abdominal pain Status: Acute Qualifiers: Abdominal location: upper abdomen, unspecified Qualified Code(s): R10.10 - Upper abdominal pain, unspecified Plan: POST OPERATIVE,. PAIN AND NAUSEA CONTROL. DR SHIN CONSULTING, WOUND CARE. AM LABS (2) Partial obstruction of small intestine Status: Acute (3) Hypertension Status: Chronic (4) GERD (gastroesophageal reflux disease) Status: Chronic (5) Lumbar and sacral spondyloarthritis Status: Chronic
[2018-08-28] MEDS ORDERED: NORCO 7.5/325 MG TAB PO PRN (15:53)
[2018-08-28] MEDS: COLACE CAP 100 MG PO SCH (20:35)
[2018-08-29 05:28] LABS: BASOPHILS % (AUTO) 0.3 % (0.2-1.0); EOSINOPHILS # (AUTO) 0.3 x10^3/uL (0.0-0.2); EOSINOPHILS % (AUTO) 4.8 % (0.9-2.9); HEMATOCRIT 38.3 % (42.0-54.0); HEMOGLOBIN 13.5 g/dL (13.5-18.0); LYMPHOCYTES # (AUTO) 1.4 X10^3/uL (1.3-2.9); LYMPHOCYTES % (AUTO) 20.6 % (21.0-51.0); MEAN CORPUSCULAR HEMOGLOBIN 30.5 pg (27.0-34.0); MEAN CORPUSCULAR HGB CONC 35.3 g/dL (33.0-35.0); MEAN CORPUSCULAR VOLUME 86.3 fL (80.0-100.0); MEAN PLATELET VOLUME 7.4 fL (7.4-11.0); MONOCYTES # (AUTO) 0.7 x10^3/uL (0.3-0.8); MONOCYTES % (AUTO) 9.8 % (0.0-13.0); NEUTROPHILS # (AUTO) 4.4 x10^3/uL (2.2-4.8); NEUTROPHILS % (AUTO) 64.5 % (42.0-75.0); PLATELET COUNT 294 X10^3/uL (150.0-450.0); RED BLOOD COUNT 4.44 X10^6/uL (4.7-6.0); RED CELL DISTRIBUTION WIDTH 12.7 % (11.6-16.5); WHITE BLOOD COUNT 6.8 X10^3/uL (3.6-10.0)
[2018-08-29 05:34] LABS: ALANINE AMINOTRANSFERASE 44 Units/L (12-78); ALBUMIN 2.7 g/dL (3.4-5.0); ALKALINE PHOSPHATASE 60 Units/L (46-116); ASPARTATE AMINO TRANSFERASE 18 Units/L (15-37); BLOOD UREA NITROGEN 5 mg/dL (7-18); CARBON DIOXIDE 27.7 mmol/L (21-32); CHLORIDE 104 mmol/L (98-107); CREATININE 0.86 mg/dL (0.70-1.30); SODIUM 139 mmol/L (136-145); TOTAL PROTEIN 5.9 g/dL (6.4-8.2); eGFR NON BLACK RACES > 60 (>60)
[2018-08-29] MEDS: D5 1/2 NS 1000 ML 1,000 ML IV SCH (05:45)
[2018-08-29] MEDS: CARAFATE ORAL SUSP PO SCH (05:45)
[2018-08-29] MEDS: K-DUR TAB 20 MEQ PO PRN (05:48)
[2018-08-29 05:56] LABS: BAND NEUTROPHILS % 2 % (0-10)
[2018-08-29 05:57] LABS: PLATELET MORPHOLOGY COMMENT NORMAL (NORMAL)
[2018-08-29] MEDS: DILAUDID INJ IVP PRN (06:53)
[2018-08-29] MEDS ORDERED: DULCOLAX SUPPOSITORY 10 MG RECTAL ONE (09:05)
[2018-08-29] MEDS: PEPCID 20 MG IV PREMIX* 20 MG/50 ML BAG IV SCH (09:09)
[2018-08-29] MEDS: CIPRO IV 400 MG PREMIX* 400 MG/200 ML IV.SOLN. IV SCH (09:09)
[2018-08-29] MEDS: MILK OF MAGNESIA PO SCH (09:10)
[2018-08-29] MEDS: LOVENOX INJ 40 MG SYR SC SCH (09:10)
[2018-08-29 10:27] VITALS: BP 121/82
== END 2018-08-29 11:20 | disposition home or self-care (01) | DRG 394 ==
LOC: ICU 00:28 → ER 00:28 → OBSVTOIN 09:25 → ICU 09:47 → MED/SURG 08-28 16:01
PROVIDERS: ADMIT Internal Medicine; ATTEND Internal Medicine
DX: Z79.01 Long term (current) use of anticoagulants; I10 Essential (primary) hypertension; M47.897 Other spondylosis, lumbosacral region; K91.89 Other postprocedural complications and disorders of digestive system; R10.84 Generalized abdominal pain; K56.51 Intestinal adhesions [bands], with partial obstruction
CPT/HCPCS: 36415; 71275; 74000; 74018; 74160; 80053; 80061; 81001; 82150; 83690; 83735; 84436; 84443; 84479; 85025; 85378; 96365; 96374; 96375; 99238; 99284; A4222; S0028; J0744; J0780; J1100; J1170; J1650; J2060; J2405; J2550; J2765; J3480; J7030; J7050; S5010

== ENCOUNTER 2018-08-29 22:15 | Observation (INO) ==
[2018-08-29] MEDS ORDERED: MORPHINE SULFATE INJ 2 MG INJ IVP ONE (23:36)
[2018-08-29] MEDS ORDERED: ZOFRAN INJ 4 MG VIAL IVP ONE (23:36)
--- NOTE | 2018-08-29 23:38 | DR.N/VMALE ---
HPI - Time Seen Time seen: 23:34 - Primary Care Physician Primary Care Physician: SAY - Complaints Chief Complaint Doctors Comments: Patient states he was admitted for bowel surgery and was discharged today but has had nausea, vomiting and persistent abdominal pain since leaving the hospital. States he has vomited several times and had a bowel movement when he vomited tonight. States had surgery for scar tissue and he ate mashed potatoes in the hospital today but has not been able to keep anything down at home. States he tried liquids but they are coming back up. He denies fevers but states he has been having chills. States he do not have anything for pain or nausea at home. States he called [facility] and she told him to come back to the emergency room and the ER doctor will call the doctor insurance healthcare consultant. States the pain is 10 of 10 and has been constrant. Chief Complaint:: PATIENT STATES HE GOT DISCHARGED FROM THE HOSPITAL THIS MORNING AND HE HAS NAUSEA VOMITING AND PAIN SINCE HE LEFT, PT STATES WE CAN CALL [facility], INFORMED PATIENT IF HE WASNT A DIRECT ADMIT HE HAD TO BE SEEN THROUGH THE ER. PT IN NO DISTRESS IN TRIAGE AND NOT ACTIVELY VOMITING. Self Treatment fo Chief Complaint: N/A - Reviewed Nurses Notes Reviewed: Yes - Source History Provided: Patient - Mode of Arrival Mode of Arrival: Ambulatory - Timing Onset of Chief Complaint: 08/29/18 - Context Onset: Spontaneous Recent: None Possible Ingestion: Unknown History of: Abdominal Operation - Quality Quality: Bilious - Associated Signs and Symptoms Abdominal Pain Quality: Sharp Abdominal Pain Location: Diffuse Symptoms: Abdominal Pain PMH - PMH Past Medical History: Yes Past Medical History: Arthritis, Hypertension Past Surgical History: Yes Surgical History: Appendectomy, Cholecystectomy, Ortho Surgery Past Surgical History Comment: SCAR TISSUE REMOVED FROM INTESTINES - Family History History of Family Medical Conditions: Yes Family Medical History: CO, Hypertension - Social History Does patient currently use any type of tobacco product: No Have you used tobacco products in the last 12 months: No Type of Tobacco Use: None Does any household member use tobacco: No Alcohol Use: None Do you use any recreational Drugs:: No Lives With: Alone Lives Where: Home - infectious screening In the last 2 months have you had wt loss of >10#?: NO Have you had fever, night sweats or hemotysis?: No Have you traveled outside the country in the last 6 months?: No Isolation: Standard ROS - Review of Systems Constitutional: No Symptoms Reported, Chills Eyes: No Symptoms Reported. negative: See HPI, Eye Pain, Blurred Vision, Tearing, Discharge, Photophobia, Diplopia, Other ENTM: No Symptoms Reported Respiratoy: No Symptoms Reported. negative: See HPI, Productive Cough, Non- Productive Cough, Moist Cough, Dry Cough, Hacking Cough, Barking Cough, Brassy Cough, Orthopnea, Short of Breath, Stridor, Wheezing, Hemoptysis, Other Cardiovascular: No Symptoms Reported. negative: See HPI, Chest Pain, Edema, Palpitations, Syncope, Cyanosis, Skin Mottling, Other Gastrointestinal/Abdominal: No Symptoms Reported, Abdominal Pain, Nausea, Vomiting. negative: See HPI, Constipation, Diarrhea, Food Intolerance, Other Genitourinary: No Symptoms Reported. negative: See HPI, Discharge, Dysuria, Frequency, Hematuria, Pain, Bleeding, Other Neurological: No Symptoms Reported Musculoskeletal: No Symptoms Reported Integumentary: No Symptoms Reported Hematologic/Lymphatic: No Symptoms Reported. negative: See HPI, Anemia, Blood Clots, Easy Bleeding, Easy Bruising, Swollen Glands, Lymphadenopathy, Other Endocrine: No Symptoms Reported Psychiatric: No Symptoms Reported. negative: See HPI, Anxiety, Depression, Hallucinations, Excessive crying, Suicidal, Other PE - General Limitations: No Limitations General Appearance: Alert, In Distress (moderate) - Head Head Exam: Normal Inspection, Atraumatic, Normocephalic - Eyes Eye exam: Normal Appearance, PERRL, EOMI. negative: Scleral Icterus, Conjunctival Injection, Nystagmus, Miosis, Mydrasis, Periorbital Swelling, Periorbital Tenderness, Other - ENT ENT Exam: Normal Exam, Normal Oropharynx, Normal External Ear Exam, Mucous Membranes Moist, TM's Normal Bilaterally - Neck Neck Exam: Normal Inspection, Full ROM, Trachea Midline. negative: Tenderness, Meningismus, Lymphadenopathy, Thyromegaly, Other - Chest Chest Inspection: Normal Inspection, Symmetric Chest Wall Rise. negative: Tenderness, Rash, Abscess, Other - Respiratory Respiratory Exam: Normal Lung Sounds Bilat. negative: Accessory Muscle Use, Chest Wall Tenderness, Prolonged Expiratory Phase, Respiratory Distress, Stridor, Other Respiratory Exam: Bilateral Clear to Auscultation - Cardiovascular Cardiovascular Exam: Regular Rate, Normal Rhythm, Normal Heart Sounds - Abdominal Exam Abdominal Exam: Normal Inspection, Normal Bowel Sounds, Soft, Distention, Tenderness (diffuse), Guarding, Hyperactive Bowel Sounds. negative: Trauma (surgical dressing intack midling abdominal wall) Abdominal Tenderness: Epigastrium, Suprapubic, Diffuse, Moderate - Rectal Rectal Exam: Deferred - Exam: Male: Deferred - Extremities Extremities Exam: Normal Inspection, Full ROM, Tenderness, Normal Capillary Refill - Back Back Exam: Normal Inspection, Full ROM. negative: Tenderness, (R) CVA Tenderness, (L) CVA Tenderness, Muscle Spasm, Paraspinal Tenderness, Vertebral Tenderness, Rashes, (R) Sciatic Notch Tenderness, (L) Sciatic Notch Tendern, (R) Straight Leg Raise, (L) Straight Leg Raise, Other - Neurologic Neurological Exam: Alert, Oriented X3, CN II-XII Intact, Normal Gait, Reflexes Normal - Psychiatric Psychiatric Exam: Normal Affect, Normal Mood. negative: Depressed, Agitated, Anxious, Flat Affect, Manic, Homicidal Ideation, Suicidal Ideation, Other - Skin Skin Exam: Warm, Dry, Intact, Normal Color - Vital Signs Vitals: Temperature 97.8 F Pulse Rate 125 Respiratory Rate 18 Blood Pressure [Right Arm] 121/82 Blood Pressure [Left Arm] 116/71 Blood Pressure 135/89 O2 Sat by Pulse Oximetry 98 Course - Reevaluation 1st: Improved - Consultation Called: 02:17 (Dr. Roe called and states admit hospitalist consult him) Call Returned: 02:18 (Dr. Deal with admit) - Education/Counseling Education/Counseling: Patient, Family Educated On: Treatment, Diagnosis, Needs for Follow Up ROR - Labs Reviewed Laboratory Results Reviewed?: Yes (All labs and x-ray results reviewed and discussed with patient) Result Diagrams: 08/29/18 23:45 08/29/18 23:45 - XRAY XRAY Interpreted by: Radiologist (CT abdomen and pelvis: Ddilated loops of proximal small bowel with mild wall thickening and mesenteric stranding.favors an inflammatory process such as inflammatory bowel disease, although functionally developing obstruction is possible.) - Labs Reviewed Laboratory: WBC 10.9 X10^3/uL (3.6-10.0) H 08/29/18 23:45 RBC 5.35 X10^6/uL (4.7-6.0) 08/29/18 23:45 Hgb 16.3 g/dL (13.5-18.0) D 08/29/18 23:45 Hct 45.8 % (42.0-54.0) 08/29/18 23:45 MCV 85.7 fL (80.0-100.0) 08/29/18 23:45 MCH 30.5 pg (27.0-34.0) 08/29/18 23:45 MCHC 35.6 g/dL (33.0-35.0) H 08/29/18 23:45 RDW 13.0 % (11.6-16.5) 08/29/18 23:45 Plt Count 388 X10^3/uL (150.0-450.0) 08/29/18 23:45 Plt Count Comment Adequate (ADEQUATE) 08/29/18 23:45 MPV 7.2 fL (7.4-11.0) L 08/29/18 23:45 Neut % (Auto) 79.7 % (42.0-75.0) H 08/29/18 23:45 Lymph % (Auto) 10.2 % (21.0-51.0) L 08/29/18 23:45 [place] % (Auto) 7.4 % (0.0-13.0) 08/29/18 23:45 Eos % (Auto) 2.3 % (0.9-2.9) 08/29/18 23:45 Baso % (Auto) 0.4 % (0.2-1.0) 08/29/18 23:45 Neut # (Auto) 8.7 x10^3/uL (2.2-4.8) H 08/29/18 23:45 Lymph # (Auto) 1.1 X10^3/uL (1.3-2.9) L 08/29/18 23:45 [facility] # (Auto) 0.8 x10^3/uL (0.3-0.8) 08/29/18 23:45 Eos # (Auto) 0.3 x10^3/uL (0.0-0.2) H 08/29/18 23:45 Baso # (Auto) 0.0 X10^3/uL (0.0-0.1) 08/29/18 23:45 Absolute Nucleated RBC 0.2 /100WBC 08/29/18 23:45 Total Counted 100 08/29/18 23:45 Neutrophils % (Manual) 79 % (39-76) H 08/29/18 23:45 Lymphocytes % (Manual) 11 % (13-43) L 08/29/18 23:45 Monocytes % (Manual) 7 % (4-9) 08/29/18 23:45 Eosinophils % (Manual) 3 % (0-6) 08/29/18 23:45 Plt Morphology Comment Normal (NORMAL) 08/29/18 23:45 RBC Morphology Normal (NORMAL) 08/29/18 23:45 Sodium 137 mmol/L (136-145) 08/29/18 23:45 Corrected Sodium 137 mmol/L (136-145) 08/29/18 23:45 Potassium 4.2 mmol/L (3.5-5.1) 08/29/18 23:45 Chloride 103 mmol/L (98-107) 08/29/18 23:45 Carbon Dioxide 26.7 mmol/L (21-32) 08/29/18 23:45 BUN 8 mg/dL (7-18) 08/29/18 23:45 Creatinine 1.15 mg/dL (0.70-1.30) 08/29/18 23:45 Est GFR (MDRD) Af Amer > 60 (>60) 08/29/18 23:45 Est GFR (MDRD) Non-Af > 60 (>60) 08/29/18 23:45 Glucose 115 mg/dL (65-99) H 08/29/18 23:45 Calcium 9.0 mg/dL (8.5-10.1) 08/29/18 23:45 Corrected Calcium TNP 08/29/18 23:45 Total Bilirubin 0.80 mg/dL (0.2-1.0) 08/29/18 23:45 AST 23 Units/L (15-37) 08/29/18 23:45 ALT 48 Units/L (12-78) 08/29/18 23:45 Alkaline Phosphatase 75 Units/L (46-116) 08/29/18 23:45 Total Protein 7.3 g/dL (6.4-8.2) 08/29/18 23:45 Albumin 3.5 g/dL (3.4-5.0) 08/29/18 23:45 Globulin 3.8 g/dL (2.5-4.5) 08/29/18 23:45 Albumin/Globulin Ratio 0.9 Ratio (1.1-2.1) L 08/29/18 23:45 Amylase 41 Units/L (25-115) 08/29/18 23:45 Lipase 321 Units/L (73-393) 08/29/18 23:45 Opioid - Opioid Risk Tool Total: 0 Total Score Risk Category: Low Risk - Diagnosis Discharge Problem: Nausea and vomiting in adult patient, SBO (small bowel obstruction), Left pulmonary lesion, Hyperglycemia Abdominal pain Qualifiers: Abdominal location: generalized Qualified Code(s): R10.84 - Generalized abdominal pain - Discharge Plan Disposition: ADMITTED INPATIENT Condition: Stable - Follow ups/Referrals Follow ups/Referrals: TONY DEAL [Primary Care Provider] - 3 days - Instructions
[2018-08-29] MEDS ORDERED: NS 1000 ML 1,000 ML ONE (23:48)
[2018-08-29] MEDS ORDERED: ZOFRAN INJ 4 MG VIAL ONE (23:48)
[2018-08-29] MEDS ORDERED: MORPHINE SULFATE INJ 2 MG INJ ONE (23:49)
[2018-08-29 23:59] LABS: BASOPHILS % (AUTO) 0.4 % (0.2-1.0); EOSINOPHILS # (AUTO) 0.3 x10^3/uL (0.0-0.2); EOSINOPHILS % (AUTO) 2.3 % (0.9-2.9); HEMATOCRIT 45.8 % (42.0-54.0); HEMOGLOBIN 16.3 g/dL (13.5-18.0); LYMPHOCYTES # (AUTO) 1.1 X10^3/uL (1.3-2.9); LYMPHOCYTES % (AUTO) 10.2 % (21.0-51.0); MEAN CORPUSCULAR HEMOGLOBIN 30.5 pg (27.0-34.0); MEAN CORPUSCULAR HGB CONC 35.6 g/dL (33.0-35.0); MEAN CORPUSCULAR VOLUME 85.7 fL (80.0-100.0); MEAN PLATELET VOLUME 7.2 fL (7.4-11.0); MONOCYTES # (AUTO) 0.8 x10^3/uL (0.3-0.8); MONOCYTES % (AUTO) 7.4 % (0.0-13.0); NEUTROPHILS # (AUTO) 8.7 x10^3/uL (2.2-4.8); NEUTROPHILS % (AUTO) 79.7 % (42.0-75.0); PLATELET COUNT 388 X10^3/uL (150.0-450.0); RED BLOOD COUNT 5.35 X10^6/uL (4.7-6.0); WHITE BLOOD COUNT 10.9 X10^3/uL (3.6-10.0)
[2018-08-30 00:07] LABS: ALANINE AMINOTRANSFERASE 48 Units/L (12-78); ALBUMIN 3.5 g/dL (3.4-5.0); ALKALINE PHOSPHATASE 75 Units/L (46-116); AMYLASE 41 Units/L (25-115); ASPARTATE AMINO TRANSFERASE 23 Units/L (15-37); BLOOD UREA NITROGEN 8 mg/dL (7-18); CARBON DIOXIDE 26.7 mmol/L (21-32); CHLORIDE 103 mmol/L (98-107); COR NA(FOR HYPERGLY) 137 mmol/L (136-145); CREATININE 1.15 mg/dL (0.70-1.30); LIPASE 321 Units/L (73-393); SODIUM 137 mmol/L (136-145); TOTAL PROTEIN 7.3 g/dL (6.4-8.2); eGFR NON BLACK RACES > 60 (>60)
[2018-08-30 00:11] LABS: PLATELET MORPHOLOGY COMMENT NORMAL (NORMAL)
[2018-08-30] MEDS: NS 1000 ML 1,000 ML IV ONE ×2 (00:58→10:50)
--- NOTE | 2018-08-30 01:04 | CT ---
CT abdomen and pelvis with contrast Indication: Abdominal pain and vomiting Technique: Helical images through the abdomen and pelvis without contrast. Coronal and sagittal reformats provided Comparison: 08/25/2018 CT. Findings: Worsening scattered tree-in-bud opacities, in the left lower lobe. Review of bone windows shows no destructive osseous lesion. Spine DJD again noted Abdomen: The gallbladder is absent. The liver, spleen, pancreas, adrenal glands, stomach and kidneys show no acute abnormality. Vasculature is free of calcification. The colon is generally collapsed. Appendix is absent. There is scarring at the midline from recent surgery. The duodenum and jejunum are dilated and minimally thick-walled, with gradual transition to collapsed bowel in the right abdomen. The right lower quadrant abdominal small bowel also appears mildly thick-walled. Pelvis: The urinary bladder, rectum and prostate gland are normal. Trace right inguinal canal fluid noted. Impression: 1. Dilated loops of proximal small bowel with mild wall thickening and mesenteric stranding. The collapsed distal small bowel is also wall thickened, for example see coronal image 20. This favors an inflammatory process such as inflammatory bowel disease, although functionally developing obstruction is possible. Surgical consultation is recommended. 2. Other findings as above. No free air or pneumatosis seen. Scarring from recent surgery noted. Reported By:
[2018-08-30] MEDS ORDERED: PHENERGAN INJ 25 MG IM ONE ×2 (01:44)
[2018-08-30] MEDS ORDERED: ROCEPHIN VIAL 1 GRAM IVP ONE (02:09)
[2018-08-30] MEDS ORDERED: ROCEPHIN VIAL 1 GRAM ONE (02:36)
[2018-08-30] MEDS ORDERED: PHENERGAN INJ 25 MG IM PRN (02:39)
[2018-08-30] MEDS ORDERED: PEPCID 20 MG IV PREMIX* 20 MG/50 ML BAG IV PRN (02:39)
[2018-08-30] MEDS ORDERED: PEPCID 20 MG IV PREMIX* 20 MG/50 ML BAG ONE (03:46)
[2018-08-30 04:30] VITALS: BMI 34.2
[2018-08-30 05:18] LABS: BASOPHILS % (AUTO) 0.2 % (0.2-1.0); EOSINOPHILS # (AUTO) 0.2 x10^3/uL (0.0-0.2); EOSINOPHILS % (AUTO) 2.4 % (0.9-2.9); HEMATOCRIT 41.5 % (42.0-54.0); HEMOGLOBIN 14.8 g/dL (13.5-18.0); LYMPHOCYTES # (AUTO) 1.3 X10^3/uL (1.3-2.9); LYMPHOCYTES % (AUTO) 12.8 % (21.0-51.0); MEAN CORPUSCULAR HEMOGLOBIN 30.8 pg (27.0-34.0); MEAN CORPUSCULAR HGB CONC 35.7 g/dL (33.0-35.0); MEAN CORPUSCULAR VOLUME 86.3 fL (80.0-100.0); MEAN PLATELET VOLUME 7.3 fL (7.4-11.0); MONOCYTES # (AUTO) 0.8 x10^3/uL (0.3-0.8); NEUTROPHILS # (AUTO) 7.5 x10^3/uL (2.2-4.8); NEUTROPHILS % (AUTO) 76.6 % (42.0-75.0); PLATELET COUNT 352 X10^3/uL (150.0-450.0); RED BLOOD COUNT 4.81 X10^6/uL (4.7-6.0); RED CELL DISTRIBUTION WIDTH 13.1 % (11.6-16.5); WHITE BLOOD COUNT 9.8 X10^3/uL (3.6-10.0)
[2018-08-30 05:19] LABS: ALANINE AMINOTRANSFERASE 41 Units/L (12-78); ALBUMIN 3.1 g/dL (3.4-5.0); ALKALINE PHOSPHATASE 65 Units/L (46-116); ASPARTATE AMINO TRANSFERASE 22 Units/L (15-37); BLOOD UREA NITROGEN 8 mg/dL (7-18); CALCIUM 8.4 mg/dL (8.5-10.1); CARBON DIOXIDE 27.3 mmol/L (21-32); CHLORIDE 105 mmol/L (98-107); COR CA(FOR HYPOALB) 9.1 mg/dL (8.5-10.1); CREATININE 1.13 mg/dL (0.70-1.30); SODIUM 140 mmol/L (136-145); TOTAL PROTEIN 6.6 g/dL (6.4-8.2); eGFR NON BLACK RACES > 60 (>60)
[2018-08-30 05:50] LABS: BAND NEUTROPHILS % 1 % (0-10); PLATELET MORPHOLOGY COMMENT NORMAL (NORMAL)
[2018-08-30] MEDS: MORPHINE SULFATE INJ 2 MG INJ IVP PRN ×2 (10:46→14:27)
[2018-08-30] MEDS ORDERED: NS 1000 ML 1,000 ML ONE (10:50)
[2018-08-30] MEDS ORDERED: D5 1/2 NS 1000 ML 1,000 ML IV SCH (11:00)
--- NOTE | 2018-08-30 11:33 | DR.UPDATE ---
H&P Update History and Physical Update: History and Physical reviewed and patient examined. 08/25/2018 Yes with the following:Abdominal Exam: Normal Inspection, Normal Bowel Sounds, Soft, Distention, Tenderness (diffuse), Guarding, Hyperactive Bowel Sounds. negative: Trauma (surgical dressing intack midling abdominal wall) Abdominal Tenderness: Epigastrium, Suprapubic, Diffuse, Moderate
--- NOTE | 2018-08-30 11:40 | DR.PROGNOT ---
Hospital Progress Notes - Progress Note for Day of: Progress Note Date: 08/30/18 - Chief Complaint Chief Complaint: came back to the ER with abdominal pain , vomiting , diarrhea . s/p laparotomy and lysis of adhesions . having moderate abdominal distention . normal CBC and CMP ,. CT showed dilated SB loops with thick distal small bowel . - Past Medical Family Social History Past Med/Fam/Surg Hx: No changes since H&P Allergies: Allergies No Known Drug Allergies [NKDA] Allergy (Verified 08/20/18 15:24) - Review Of Systems ROS: No change since H&P - Vital Signs Vital Signs: Temperature 98.6 F Pulse Rate [Right Brachial] 87 Pulse Rate 125 Respiratory Rate 20 Blood Pressure [Right Arm] 144/88 Blood Pressure [Left Arm] 116/71 Blood Pressure 135/89 O2 Sat by Pulse Oximetry 95 - Physical Exam Oriented: Normal Eyes: Normal Ear: Normal Nose: Normal Throat: Normal Cardiovascular: Normal : Normal GI:Palpation: Normal GI: Tenderness: Diffuse, Moderate Speech Pattern: Clear, Appropriate - Laboratory and Diagnostics Result Diagrams: 08/30/18 04:05 08/30/18 04:05 Labs: Laboratory WBC 9.8 X10^3/uL (3.6-10.0) 08/30/18 04:05 RBC 4.81 X10^6/uL (4.7-6.0) 08/30/18 04:05 Hgb 14.8 g/dL (13.5-18.0) 08/30/18 04:05 Hct 41.5 % (42.0-54.0) L 08/30/18 04:05 MCV 86.3 fL (80.0-100.0) 08/30/18 04:05 MCH 30.8 pg (27.0-34.0) 08/30/18 04:05 MCHC 35.7 g/dL (33.0-35.0) H 08/30/18 04:05 RDW 13.1 % (11.6-16.5) 08/30/18 04:05 Plt Count 352 X10^3/uL (150.0-450.0) 08/30/18 04:05 Plt Count Comment Adequate (ADEQUATE) 08/30/18 04:05 MPV 7.3 fL (7.4-11.0) L 08/30/18 04:05 Neut % (Auto) 76.6 % (42.0-75.0) H 08/30/18 04:05 Lymph % (Auto) 12.8 % (21.0-51.0) L 08/30/18 04:05 [place] % (Auto) 8.0 % (0.0-13.0) 08/30/18 04:05 Eos % (Auto) 2.4 % (0.9-2.9) 08/30/18 04:05 Baso % (Auto) 0.2 % (0.2-1.0) 08/30/18 04:05 Neut # (Auto) 7.5 x10^3/uL (2.2-4.8) H 08/30/18 04:05 Lymph # (Auto) 1.3 X10^3/uL (1.3-2.9) 08/30/18 04:05 [place] # (Auto) 0.8 x10^3/uL (0.3-0.8) 08/30/18 04:05 Eos # (Auto) 0.2 x10^3/uL (0.0-0.2) 08/30/18 04:05 Baso # (Auto) 0.0 X10^3/uL (0.0-0.1) 08/30/18 04:05 Absolute Nucleated RBC 0.0 /100WBC 08/30/18 04:05 Total Counted 100 08/30/18 04:05 Neutrophils % (Manual) 77 % (39-76) H 08/30/18 04:05 Band Neutrophils % 1 % (0-10) 08/30/18 04:05 Lymphocytes % (Manual) 13 % (13-43) 08/30/18 04:05 Monocytes % (Manual) 7 % (4-9) 08/30/18 04:05 Eosinophils % (Manual) 2 % (0-6) 08/30/18 04:05 Plt Morphology Comment Normal (NORMAL) 08/30/18 04:05 RBC Morphology Normal (NORMAL) 08/30/18 04:05 Sodium 140 mmol/L (136-145) 08/30/18 04:05 Corrected Sodium TNP 08/30/18 04:05 Potassium 4.0 mmol/L (3.5-5.1) 08/30/18 04:05 Chloride 105 mmol/L (98-107) 08/30/18 04:05 Carbon Dioxide 27.3 mmol/L (21-32) 08/30/18 04:05 BUN 8 mg/dL (7-18) 08/30/18 04:05 Creatinine 1.13 mg/dL (0.70-1.30) 08/30/18 04:05 Est GFR (MDRD) Af Amer > 60 (>60) 08/30/18 04:05 Est GFR (MDRD) Non-Af > 60 (>60) 08/30/18 04:05 Glucose 104 mg/dL (65-99) H 08/30/18 04:05 Calcium 8.4 mg/dL (8.5-10.1) L 08/30/18 04:05 Corrected Calcium 9.1 mg/dL (8.5-10.1) 08/30/18 04:05 Total Bilirubin 0.50 mg/dL (0.2-1.0) 08/30/18 04:05 AST 22 Units/L (15-37) 08/30/18 04:05 ALT 41 Units/L (12-78) 08/30/18 04:05 Alkaline Phosphatase 65 Units/L (46-116) 08/30/18 04:05 Total Protein 6.6 g/dL (6.4-8.2) 08/30/18 04:05 Albumin 3.1 g/dL (3.4-5.0) L 08/30/18 04:05 Globulin 3.5 g/dL (2.5-4.5) 08/30/18 04:05 Albumin/Globulin Ratio 0.9 Ratio (1.1-2.1) L 08/30/18 04:05 Amylase 41 Units/L (25-115) 08/29/18 23:45 Lipase 321 Units/L (73-393) 08/29/18 23:45 - Assessment and Plan 1: recurrent Partial SBO. recent pancreatitis . s/p laparotomy , lysis of adhesions . possible IBD . to keep NPO , start on small dose of steroids . stool for C diff . start on Flagyl . repeat abdominal xray . - Problem Patient Problems: Patient Problems Abdominal pain (Acute) R10.9 Small bowel obstruction (Acute) K56.609 Nausea and vomiting in adult patient (Acute) R11.2 Left pulmonary lesion (Acute) J98.4 Hyperglycemia (Acute) R73.9
[2018-08-30] MEDS: ZOSYN VIAL 3.375 GRAMS 3.375 G in NS 100 ML IV + SPIKE MINIBAG* 100 ML IV SCH ×2 (11:55→13:58)
[2018-08-30 12:29] LABS: BILIRUBIN,URINE NEGATIVE (NEGATIVE); BLOOD/HEMOGLOBIN,URINE NEGATIVE (NEGATIVE); GLUCOSE, URINE NEGATIVE (NEGATIVE); KETONES,URINE 1+ (NEGATIVE); LEUKOCYTE ESTERASE ,URINE NEGATIVE (NEGATIVE); NITRITES,URINE NEGATIVE (NEGATIVE); PH,URINE 6.5 (5.0 - 8.0); PROTEIN,URINE 1+ (NEGATIVE); UROBILINOGEN,URINE NORMAL (NORMAL)
[2018-08-30 12:30] LABS: APPEARANCE,URINE CLEAR (CLEAR); COLOR,URINE YELLOW (YELLOW)
[2018-08-30 12:33] LABS: BACTERIA,URINE NEGATIVE /HPF (NEGATIVE); MUCUS,URINE MODERATE /HPF (NEGATIVE); RBC,URINE NONE SEEN /HPF (NONE SEEN); SQUAMOUS EPITHELIAL CELL,UR NEGATIVE /HPF (NEGATIVE)
[2018-08-30] MEDS ORDERED: SOLU-Medrol 40 MG VIAL IVP SCH (14:00)
[2018-08-30] MEDS ORDERED: FLAGYL IV PREMIX 500 MG BAG 500 MG/100 ML BAG IV SCH (15:00)
[2018-08-30 16:16] VITALS: BP 121/66
[2018-08-30] MEDS ORDERED: D5 1/2 NS 1000 ML IV ONE (18:30)
[2018-08-30] MEDS ORDERED: MORPHINE SULFATE INJ 2 MG INJ IVP ONE ×2 (18:30→23:15)
[2018-08-30] MEDS ORDERED: SOLU-Medrol 40 MG VIAL IVP ONE (20:30)
[2018-08-30] MEDS ORDERED: ZOSYN VIAL 3.375 GRAMS IV ONE (20:30)
[2018-08-30] MEDS ORDERED: NS 100 ML IV + SPIKE MINIBAG IV ONE (20:30)
[2018-08-30] MEDS ORDERED: FLAGYL IV PREMIX 500 MG BAG IV ONE (20:30)
[2018-08-31] MEDS ORDERED: D5 1/2 NS 1000 ML IV ONE ×3 (03:00→14:00)
[2018-08-31] MEDS ORDERED: FLAGYL IV PREMIX 500 MG BAG IV ONE ×4 (03:00→20:00)
[2018-08-31] MEDS ORDERED: MORPHINE SULFATE INJ 2 MG INJ IVP ONE ×4 (04:00→20:00)
[2018-08-31] MEDS ORDERED: ZOSYN VIAL 3.375 GRAMS IV ONE ×3 (06:00→20:00)
[2018-08-31] MEDS ORDERED: SOLU-Medrol 40 MG VIAL IVP ONE ×3 (06:00→20:00)
[2018-08-31] MEDS ORDERED: NS 100 ML IV + SPIKE MINIBAG IV ONE ×3 (06:00→20:00)
[2018-08-31] MEDS ORDERED: PEPCID 20 MG IV PREMIX IV ONE ×2 (08:00→20:00)
[2018-08-31] MEDS ORDERED: CARAFATE PO ONE ×3 (10:15→20:00)
[2018-08-31] MEDS ORDERED: LOVENOX INJ 40 MG SYR SC ONE (14:00)
[2018-09-01] MEDS ORDERED: FLAGYL IV PREMIX 500 MG BAG IV ONE ×2 (02:18→08:00)
[2018-09-01] MEDS ORDERED: ZOSYN VIAL 3.375 GRAMS IV ONE (05:02)
[2018-09-01] MEDS ORDERED: NS 100 ML IV + SPIKE MINIBAG IV ONE (05:02)
[2018-09-01] MEDS ORDERED: SOLU-Medrol 40 MG VIAL IVP ONE (05:02)
[2018-09-01] MEDS ORDERED: MORPHINE SULFATE INJ 2 MG INJ IVP ONE ×2 (05:02→12:41)
[2018-09-01] MEDS ORDERED: CARAFATE PO ONE (05:38)
[2018-09-01] MEDS ORDERED: PEPCID 20 MG IV PREMIX IV ONE (08:00)
[2018-09-01] MEDS ORDERED: PROTONIX TAB 40 MG PO ONE (08:00)
[2018-09-01] MEDS ORDERED: LOVENOX INJ 40 MG SYR SC ONE (08:00)
[2018-09-01] MEDS ORDERED: D5 1/2 NS 1000 ML IV ONE (12:41)
[2018-09-07 09:36] LABS: ASPARTATE AMINO TRANSFERASE 23 Units/L (15-37); BLOOD UREA NITROGEN 10 mg/dL (7-18); CALCIUM 8.5 mg/dL (8.5-10.1); CARBON DIOXIDE 24.4 mmol/L (21-32); CHLORIDE 102 mmol/L (98-107); COR NA(FOR HYPERGLY) 139 mmol/L (136-145); CREATININE 0.93 mg/dL (0.70-1.30); SODIUM 138 mmol/L (136-145); eGFR NON BLACK RACES > 60 (>60)
[2018-09-07 09:37] LABS: ALANINE AMINOTRANSFERASE 47 Units/L (12-78); ALBUMIN 3.3 g/dL (3.4-5.0); ALKALINE PHOSPHATASE 67 Units/L (46-116); COR CA(FOR HYPOALB) 9.1 mg/dL (8.5-10.1); HEMATOCRIT 43.5 % (42.0-54.0); HEMOGLOBIN 15.4 g/dL (13.5-18.0); RED BLOOD COUNT 5.05 X10^6/uL (4.7-6.0); TOTAL PROTEIN 7.3 g/dL (6.4-8.2); WHITE BLOOD COUNT 10.6 X10^3/uL (3.6-10.0)
[2018-09-07 09:38] LABS: BAND NEUTROPHILS % 2 % (0-10); BASOPHILS % (AUTO) 0.2 % (0.2-1.0); EOSINOPHILS % (AUTO) 0.2 % (0.9-2.9); LYMPHOCYTES # (AUTO) 0.6 X10^3/uL (1.3-2.9); LYMPHOCYTES % (AUTO) 6.1 % (21.0-51.0); MEAN CORPUSCULAR HEMOGLOBIN 30.4 pg (27.0-34.0); MEAN CORPUSCULAR HGB CONC 35.3 g/dL (33.0-35.0); MEAN CORPUSCULAR VOLUME 86.2 fL (80.0-100.0); MEAN PLATELET VOLUME 8.1 fL (7.4-11.0); MONOCYTES # (AUTO) 0.2 x10^3/uL (0.3-0.8); MONOCYTES % (AUTO) 1.6 % (0.0-13.0); NEUTROPHILS # (AUTO) 9.7 x10^3/uL (2.2-4.8); NEUTROPHILS % (AUTO) 91.9 % (42.0-75.0); PLATELET COUNT 332 X10^3/uL (150.0-450.0); RED CELL DISTRIBUTION WIDTH 12.6 % (11.6-16.5)
[2018-09-07 09:39] LABS: PLATELET MORPHOLOGY COMMENT NORMAL (NORMAL)
[2018-09-07 15:15] LABS: CHLORIDE 105 mmol/L (98-107); SODIUM 139 mmol/L (136-145)
[2018-09-07 15:16] LABS: ALANINE AMINOTRANSFERASE 37 Units/L (12-78); ALKALINE PHOSPHATASE 54 Units/L (46-116); ASPARTATE AMINO TRANSFERASE 15 Units/L (15-37); BLOOD UREA NITROGEN 12 mg/dL (7-18); CALCIUM 8.3 mg/dL (8.5-10.1); CARBON DIOXIDE 24.1 mmol/L (21-32); COR CA(FOR HYPOALB) 9.1 mg/dL (8.5-10.1); COR NA(FOR HYPERGLY) 140 mmol/L (136-145); CREATININE 0.92 mg/dL (0.70-1.30); TOTAL PROTEIN 6.3 g/dL (6.4-8.2); eGFR NON BLACK RACES > 60 (>60)
[2018-09-07 15:17] LABS: HEMATOCRIT 38.3 % (42.0-54.0); HEMOGLOBIN 13.6 g/dL (13.5-18.0); MEAN CORPUSCULAR HEMOGLOBIN 30.3 pg (27.0-34.0); MEAN CORPUSCULAR VOLUME 65.4 fL (80.0-100.0); RED BLOOD COUNT 4.49 X10^6/uL (4.7-6.0)
[2018-09-07 15:18] LABS: BASOPHILS % (AUTO) 0.1 % (0.2-1.0); LYMPHOCYTES # (AUTO) 0.7 X10^3/uL (1.3-2.9); LYMPHOCYTES % (AUTO) 5.7 % (21.0-51.0); MEAN CORPUSCULAR HGB CONC 35.5 g/dL (33.0-35.0); MEAN PLATELET VOLUME 7.7 fL (7.4-11.0); MONOCYTES # (AUTO) 0.5 x10^3/uL (0.3-0.8); MONOCYTES % (AUTO) 3.8 % (0.0-13.0); NEUTROPHILS # (AUTO) 11.7 x10^3/uL (2.2-4.8); NEUTROPHILS % (AUTO) 90.4 % (42.0-75.0); PLATELET COUNT 330 X10^3/uL (150.0-450.0); RED CELL DISTRIBUTION WIDTH 12.8 % (11.6-16.5)
[2018-09-07 15:19] LABS: BAND NEUTROPHILS % 2 % (0-10); PLATELET MORPHOLOGY COMMENT NORMAL (NORMAL)
== END 2018-09-01 12:30 | disposition home or self-care (01) ==
LOC: ER 22:22 → MED/SURG 22:22
PROVIDERS: ADMIT Internal Medicine; ATTEND Internal Medicine
DX: Z79.01 Long term (current) use of anticoagulants; J98.4 Other disorders of lung; K56.51 Intestinal adhesions [bands], with partial obstruction; R10.84 Generalized abdominal pain; I10 Essential (primary) hypertension; K21.9 Gastro-esophageal reflux disease without esophagitis; R19.7 Diarrhea, unspecified; R11.2 Nausea with vomiting, unspecified; K91.89 Other postprocedural complications and disorders of digestive system; E11.65 Type 2 diabetes mellitus with hyperglycemia
CPT/HCPCS: 36415; 74000; 74018; 74176; 80053; 81001; 82150; 83605; 83690; 85025; 96365; 96367; 96372; 96374; 96375; 99218; 99284; A4216; A4222; S0028; S0030; G0378; J0696; J1650; J2270; J2405; J2543; J2550; J2920; J7030; J7050; S5010

== ENCOUNTER 2019-03-08 14:26 | Observation (INO) ==
[2019-03-08] MEDS ORDERED: MORPHINE SULFATE INJ 2 MG INJ IVP PRN (14:34)
--- NOTE | 2019-03-08 14:38 | DR.H&P ---
H&P - History & Physical for Day of: H&P Date: 03/08/19 - Chief Complaint Chief Complaint: "IM SICK. VOMITING BILE" ABDOMINAL PAIN, LOWER BACK PAIN, N/V - History of Present Illness History of Present Illness: PT IS 49 WM DIRECT ADMIT FROM DR ALEJO OFFICE AFTER PRESENTING WITH CO INTRACTABLE N/V, "VOMITING BILE ALL NIGHT" AND LOWER BACK PAIN. PT CO WORSENED LOWER BACK PAIN ON FRIDAY THEN STARTED WITH ABDOMINAL PAIN AND N/V ON FRIDAY NIGHT. PT VOMITED A LARGE AMOUNT OF YELLOW/GREEN EMESIS IN OFFICE. PT WAS GIVEN PHENERGAN 25MGIM PRIOR TO ADMISSION. PT HAS PMH OF SBO WITH SURGICAL INTERVENTION IN AND REPORTS HE HAS NOT HAD ANY COMPLICATIONS. PT CO WORSENING LOWER BACK PAIN AT THE END OF LAST WEEK NOT RELIEVED WITH MUSCLE RELAXERS OR NORCO. PT ADMITTED FOR TREATMENT OF ACUTE ILLNESS. - Past Medical History Past Medical History: Arthritis, GERD, Hypertension Additional Medical History: SBO - Past Surgical History Surgical History: Appendectomy, Cholecystectomy, Ortho Surgery Additional Surgical History: Lysis of adhesions for SBO. - Family History Family Medical History: [place], Hypertension - Social History Does patient currently use any type of tobacco product: No Have you used tobacco products in the last 12 months: No Type of Tobacco Use: None Does any household member use tobacco: No Alcohol Use: None Drug Use: None Risks, benefits, and alternatives of opioids discussed: No Prescription drug monitoring program results: PDMP reviewed and no concerns identified - Medications Home Medications: No Known Drug Allergies [NKDA] Allergy (Verified 08/20/18 15:24) - Review of Systems Constitutional: Chills, Sweats, Weakness Eyes: No Symptoms Reported ENT: No Symptoms Reported Respiratory: No Symptoms Reported Cardiovascular: No Symptoms Reported Gastrointestinal: Nausea, Vomiting, Abdominal Pain Musculoskeletal: Back Pain Skin: No Symptoms Reported Neurological: Weakness - Physical Exam Vital Signs: Blood Pressure [Right Arm] 121/66 Blood Pressure [Left Arm] 116/71 Blood Pressure 121/66 Oriented: Normal Eyes: Normal Ear: Normal Nose: Normal Throat: Normal Respiratory: Clear Throughout Cardiovascular: Tachycardia Auscultation: Bowel Sounds: Decreased Tenderness: Diffuse Skin: Diaphoresis Musculoskeletal: Right, Left, Back:Lumbar Psychiatric: Anxiety Affect: Anxious Speech Pattern: Clear, Appropriate - Assessment/Plan (1) Ileus Status: Acute Plan: INTRACTABLE N/V, PLACE NG TUBE AT LIS FOR INTRACTABLE N/V. PAIN CONTROL, NPO, ABD SERIES. CBC CMP UA MAG AND LACTIC ACID ON ADMISSION. IV HYDRATION, VERIFY HOME MEDICATION (2) Abdominal pain Qualifiers: Abdominal location: generalized Qualified Code(s): R10.84 - Generalized abdominal pain Status: Acute (3) Lumbar and sacral spondyloarthritis Status: Chronic (4) Hypertension Status: Chronic - Allergies Allergies/Adverse Reactions: Allergies Allergy/AdvReac Type Severity Reaction Status Date / Time No Known Drug Allergies Allergy Verified 08/20/18 15:24 [NKDA]
[2019-03-08] MEDS: ZOFRAN INJ 4 MG VIAL IVP PRN ×2 (15:31→22:30)
[2019-03-08] MEDS: PROTONIX INJ 40 MG VIAL IVP SCH (15:44)
[2019-03-08] MEDS: NS 1000 ML 1,000 ML IV SCH (15:44)
[2019-03-08 15:45] VITALS: BMI 36.8
[2019-03-08 15:55] LABS: BASOPHILS % (AUTO) 0.1 % (0.2-1.0); EOSINOPHILS % (AUTO) 0.1 % (0.9-2.9); HEMATOCRIT 48.5 % (42.0-54.0); HEMOGLOBIN 17.2 g/dL (13.5-18.0); LYMPHOCYTES # (AUTO) 0.6 X10^3/uL (1.3-2.9); LYMPHOCYTES % (AUTO) 5.4 % (21.0-51.0); MEAN CORPUSCULAR HEMOGLOBIN 30.8 pg (27.0-34.0); MEAN CORPUSCULAR HGB CONC 35.5 g/dL (33.0-35.0); MEAN CORPUSCULAR VOLUME 86.7 fL (80.0-100.0); MEAN PLATELET VOLUME 7.6 fL (7.4-11.0); MONOCYTES # (AUTO) 0.7 x10^3/uL (0.3-0.8); MONOCYTES % (AUTO) 6.7 % (0.0-13.0); NEUTROPHILS # (AUTO) 9.2 x10^3/uL (2.2-4.8); NEUTROPHILS % (AUTO) 87.7 % (42.0-75.0); PLATELET COUNT 259 X10^3/uL (150.0-450.0); RED BLOOD COUNT 5.59 X10^6/uL (4.7-6.0); RED CELL DISTRIBUTION WIDTH 13.5 % (11.6-16.5); WHITE BLOOD COUNT 10.5 X10^3/uL (3.6-10.0)
[2019-03-08 15:58] LABS: BLOOD UREA NITROGEN 20 mg/dL (7-18); CALCIUM 9.5 mg/dL (8.5-10.1); CARBON DIOXIDE 25.6 mmol/L (21-32); CHLORIDE 100 mmol/L (98-107); COR NA(FOR HYPERGLY) 138 mmol/L (136-145); CREATININE 1.28 mg/dL (0.70-1.30); SODIUM 137 mmol/L (136-145); eGFR NON BLACK RACES > 60 (>60)
[2019-03-08 16:02] LABS: ALANINE AMINOTRANSFERASE 34 Units/L (12-78); ALBUMIN 4.4 g/dL (3.4-5.0); ALKALINE PHOSPHATASE 75 Units/L (46-116); ASPARTATE AMINO TRANSFERASE 18 Units/L (15-37); MAGNESIUM 1.8 mg/dL (1.7-2.9); TOTAL PROTEIN 7.7 g/dL (6.4-8.2)
[2019-03-08] MEDS ORDERED: K-DUR TAB 20 MEQ PO PRN (16:09)
[2019-03-08] MEDS ORDERED: POTASSIUM CHL 60 MEQ/NS 0.45% 500 ML IV PRN (16:09)
[2019-03-08] MEDS ORDERED: KLOR-CON PO PRN (16:09)
[2019-03-08] MEDS ORDERED: POTASSIUM CHL 40 MEQ/NS 0.45% 500 ML IV PRN (16:09)
[2019-03-08] MEDS ORDERED: MICRO K EXTEN CAP 10 MEQ PO PRN (16:09)
[2019-03-08] MEDS ORDERED: POTASSIUM CHLORIDE LIQ 20 MEQ UDC PO PRN (16:09)
[2019-03-08] MEDS: K-RIDER 10 MEQ/NS 100 ML 10 MEQ/100 ML BAG IV PRN ×5 (17:00→22:55)
[2019-03-08 17:44] LABS: AMYLASE 21 Units/L (25-115); LIPASE 50 Units/L (73-393)
[2019-03-08] MEDS: DILAUDID INJ IVP PRN ×2 (17:50→21:52)
[2019-03-08] MEDS ORDERED: NORCO 10/325 TAB PO PRN (18:15)
--- NOTE | 2019-03-08 18:44 | RAD ---
HISTORYINTRACTABLE ABD PAIN, N/V Relevant Clinical InformationSTUDYACUTE ABDOMEN SERIESCOMPARISONKUB dated August 27, 2018.FINDINGSThe trachea is midline. The cardiac silhouette is [unremarkable]. [The lungs are clear without focal mass or consolidation. There is no effusion or pneumothorax.] [The bony thorax is unremarkable].Flat plate and upright evaluation of the abdomen demonstrates a [multiple mildly dilated loops of small bowel up to 5.2 cm. There is air and a small amount of stool to the level of the rectum. No obvious free air. Surgical clips within the right upper quadrant]. There is no pneumoperitoneum. No pathological soft tissue mass or calcification can be observed. The bony structures are grossly intact.IMPRESSION1. [No acute cardiopulmonary disease.]2. [Constellation of findings which may represent a partial small-bowel obstruction versus ileus.]Electronically signed by: TONY ROBERTS (Mar 08, 2019 18:42:56)
[2019-03-08] MEDS: MAGNESIUM SULFATE 1 GRAM/100 mL PREMIX 1 GM/100 ML BAG IV PRN ×2 (19:35→20:50)
[2019-03-08] MEDS: ZOSYN VIAL 3.375 GRAMS 3.375 G in NS 100 ML IV + SPIKE MINIBAG* 100 ML IV SCH ×2 (21:50→21:53)
[2019-03-08] MEDS: KLONOPIN TAB 0.5 MG PO SCH (21:52)
[2019-03-09] MEDS: DILAUDID INJ IVP PRN ×4 (05:53→19:16)
[2019-03-09] MEDS: ZOFRAN INJ 4 MG VIAL IVP PRN ×3 (05:53→20:52)
[2019-03-09] MEDS: NS 1000 ML 1,000 ML IV SCH ×2 (05:53→20:42)
[2019-03-09] MEDS: ZOSYN VIAL 3.375 GRAMS 3.375 G in NS 100 ML IV + SPIKE MINIBAG* 100 ML IV SCH ×3 (05:54→22:17)
[2019-03-09 06:18] LABS: BASOPHILS % (AUTO) 0.1 % (0.2-1.0); EOSINOPHILS # (AUTO) 0.1 x10^3/uL (0.0-0.2); EOSINOPHILS % (AUTO) 1.5 % (0.9-2.9); HEMATOCRIT 42.2 % (42.0-54.0); LYMPHOCYTES # (AUTO) 1.2 X10^3/uL (1.3-2.9); LYMPHOCYTES % (AUTO) 15.2 % (21.0-51.0); MEAN CORPUSCULAR HEMOGLOBIN 30.9 pg (27.0-34.0); MEAN CORPUSCULAR HGB CONC 35.6 g/dL (33.0-35.0); MEAN CORPUSCULAR VOLUME 86.9 fL (80.0-100.0); MEAN PLATELET VOLUME 7.3 fL (7.4-11.0); MONOCYTES # (AUTO) 0.8 x10^3/uL (0.3-0.8); MONOCYTES % (AUTO) 10.4 % (0.0-13.0); NEUTROPHILS # (AUTO) 5.7 x10^3/uL (2.2-4.8); NEUTROPHILS % (AUTO) 72.8 % (42.0-75.0); PLATELET COUNT 233 X10^3/uL (150.0-450.0); RED BLOOD COUNT 4.86 X10^6/uL (4.7-6.0); RED CELL DISTRIBUTION WIDTH 13.8 % (11.6-16.5); WHITE BLOOD COUNT 7.8 X10^3/uL (3.6-10.0)
[2019-03-09 06:29] LABS: ALANINE AMINOTRANSFERASE 28 Units/L (12-78); ALBUMIN 3.6 g/dL (3.4-5.0); ALKALINE PHOSPHATASE 62 Units/L (46-116); ASPARTATE AMINO TRANSFERASE 14 Units/L (15-37); BLOOD UREA NITROGEN 20 mg/dL (7-18); CALCIUM 8.3 mg/dL (8.5-10.1); CARBON DIOXIDE 30.5 mmol/L (21-32); CHLORIDE 104 mmol/L (98-107); COR NA(FOR HYPERGLY) 141 mmol/L (136-145); CREATININE 1.27 mg/dL (0.70-1.30); MAGNESIUM 2.6 mg/dL (1.7-2.9); SODIUM 141 mmol/L (136-145); TOTAL PROTEIN 6.6 g/dL (6.4-8.2); eGFR NON BLACK RACES > 60 (>60)
[2019-03-09] MEDS: PROTONIX INJ 40 MG VIAL IVP SCH (09:21)
[2019-03-09 09:24] LABS: BILIRUBIN,URINE NEGATIVE (NEGATIVE); BLOOD/HEMOGLOBIN,URINE NEGATIVE (NEGATIVE); GLUCOSE, URINE NEGATIVE (NEGATIVE); KETONES,URINE 1+ (NEGATIVE); LEUKOCYTE ESTERASE ,URINE NEGATIVE (NEGATIVE); NITRITES,URINE NEGATIVE (NEGATIVE); PROTEIN,URINE 2+ (NEGATIVE); UROBILINOGEN,URINE NORMAL (NORMAL)
[2019-03-09] MEDS: COZAAR PO SCH ×2 (09:24→10:46)
[2019-03-09] MEDS: NORVASC TAB 10 MG PO SCH ×2 (09:24→10:46)
[2019-03-09 09:25] LABS: COLOR,URINE DARK YELLOW (YELLOW)
[2019-03-09] MEDS: K-RIDER 10 MEQ/NS 100 ML 10 MEQ/100 ML BAG IV PRN ×2 (09:30→10:30)
[2019-03-09 09:35] LABS: AMORPHOUS SEDIMENT,UR 1+ /HPF (NEGATIVE); APPEARANCE,URINE SLIGHTLY HAZY (CLEAR); BACTERIA,URINE TRACE /HPF (NEGATIVE); COARSE GRANULAR CASTS,URINE FEW /HPF (NEGATIVE); HYALINE CASTS, URINE FEW /LPF (NEGATIVE); RBC,URINE 0-2 /HPF (0-3); SQUAMOUS EPITHELIAL CELL,UR FEW /HPF (NEGATIVE)
[2019-03-09 09:36] LABS: MUCUS,URINE MODERATE /HPF (NEGATIVE)
[2019-03-09] MEDS: BENADRYL INJ 50 MG VIAL IV PRN ×3 (10:46→22:17)
--- NOTE | 2019-03-09 11:11 | CT ---
HISTORYABD PAIN, N/V, DISTENSION, ILEUS VS SBO, PT REFUSED PO CONTRAST AND NGT PLACEMENT, PROVIDER REQUESTED NON CONTRASTED STUDYSTUDYCT ABDOMEN/PELVIS W/O CONCOMPARISONCT 11/03/2018TECHNIQUEMultiple axial images of the abdomen and pelvis were obtained from the lung bases to the pubic symphysis without the administration of IV contrast. Dose reduction techniques including Automated Exposure Control (AEC) and adjustment of mA and kV were utilized.FINDINGSThe visualized portions of the lung bases reveal mild atelectasis.The liver and spleen display no abnormalities.Prior cholecystectomy. Prominence of common bile duct is likely normal postsurgical appearance, unchanged.No pancreatic abnormality is seen.The adrenal glands appear normal.No hydronephrosis or focal renal abnormality is seen. Ureters and bladder appear normal.No constipation or bowel obstruction. Mild small bowel air with possible mild small bowel wall thickening could be from enteritis. Likely mild inflammation in the small bowel mesentery. Appendix is not seen but no pericecal inflammation is seen.No abnormalities are seen of the reproductive organs.Abdominal aorta is normal in size.Shotty reactive mesenteric lymph nodes.No free intraperitoneal air or fluid is seen.No acute bony abnormality is seen. Small left inguinal hernia containing fat.IMPRESSIONPossible mild enteritis changes. No evidence of ileus or bowel obstruction.Electronically signed by: López Joseph (Mar 09, 2019 11:10:11)
[2019-03-09] MEDS: KLONOPIN TAB 0.5 MG PO SCH (20:42)
[2019-03-10] MEDS: NS 1000 ML 1,000 ML IV SCH ×3 (01:00→11:13)
[2019-03-10] MEDS: DILAUDID INJ IVP PRN ×4 (01:43→15:22)
[2019-03-10] MEDS: BENADRYL INJ 50 MG VIAL IV PRN ×3 (05:46→18:21)
[2019-03-10] MEDS: ZOSYN VIAL 3.375 GRAMS 3.375 G in NS 100 ML IV + SPIKE MINIBAG* 100 ML IV SCH ×3 (05:46→22:39)
[2019-03-10 06:07] LABS: BASOPHILS % (AUTO) 0.4 % (0.2-1.0); EOSINOPHILS # (AUTO) 0.1 x10^3/uL (0.0-0.2); HEMATOCRIT 37.8 % (42.0-54.0); HEMOGLOBIN 13.4 g/dL (13.5-18.0); LYMPHOCYTES # (AUTO) 1.1 X10^3/uL (1.3-2.9); LYMPHOCYTES % (AUTO) 14.9 % (21.0-51.0); MEAN CORPUSCULAR HEMOGLOBIN 31.1 pg (27.0-34.0); MEAN CORPUSCULAR HGB CONC 35.4 g/dL (33.0-35.0); MEAN CORPUSCULAR VOLUME 87.6 fL (80.0-100.0); MEAN PLATELET VOLUME 7.1 fL (7.4-11.0); MONOCYTES # (AUTO) 0.7 x10^3/uL (0.3-0.8); MONOCYTES % (AUTO) 9.4 % (0.0-13.0); NEUTROPHILS # (AUTO) 5.7 x10^3/uL (2.2-4.8); NEUTROPHILS % (AUTO) 74.3 % (42.0-75.0); PLATELET COUNT 207 X10^3/uL (150.0-450.0); RED BLOOD COUNT 4.32 X10^6/uL (4.7-6.0); RED CELL DISTRIBUTION WIDTH 13.4 % (11.6-16.5); WHITE BLOOD COUNT 7.7 X10^3/uL (3.6-10.0)
[2019-03-10 06:26] LABS: ALANINE AMINOTRANSFERASE 26 Units/L (12-78); ALBUMIN 3.3 g/dL (3.4-5.0); ALKALINE PHOSPHATASE 55 Units/L (46-116); ASPARTATE AMINO TRANSFERASE 16 Units/L (15-37); BLOOD UREA NITROGEN 16 mg/dL (7-18); CALCIUM 7.7 mg/dL (8.5-10.1); CARBON DIOXIDE 29.4 mmol/L (21-32); CHLORIDE 102 mmol/L (98-107); COR CA(FOR HYPOALB) 8.3 mg/dL (8.5-10.1); CREATININE 1.09 mg/dL (0.70-1.30); SODIUM 139 mmol/L (136-145); TOTAL PROTEIN 6.2 g/dL (6.4-8.2); eGFR NON BLACK RACES > 60 (>60)
--- NOTE | 2019-03-10 07:22 | RAD ---
HISTORYAbdominal [id number]/2020FINDINGSThe abdominal gas pattern is nonspecific and nonobstructive. No abnormal masses or abnormal calcifications are identified. The regional skeleton is intact.IMPRESS IONUnremarkable KUBElectronically signed by: YUKI BEYER (Mar 10, 2019 07:20:05)
[2019-03-10] MEDS: ZOFRAN INJ 4 MG VIAL IVP PRN (07:38)
[2019-03-10] MEDS: NORVASC TAB 10 MG PO SCH (08:19)
[2019-03-10] MEDS: PROTONIX INJ 40 MG VIAL IVP SCH (08:19)
[2019-03-10] MEDS: COZAAR PO SCH (08:19)
[2019-03-10] MEDS: SOLU-Medrol 40 MG VIAL IVP SCH ×2 (10:37→13:55)
[2019-03-10] MEDS: REGLAN INJ 10 MG VIAL IVP SCH ×3 (10:37→20:21)
--- NOTE | 2019-03-10 11:06 | MRI ---
HISTORYL-SPINE DDD WITH SPINAL CANAL STENOSISSTUDYMRI L SPINE W/O CONTRASTCOMPARISONNoneTECHNIQUEMultiplanar multisequence MRI of the lumbar spine was obtained without IV contrast.FINDINGSThe conus terminates at the L1 level. No spondylolisthesis. No compression fract ure or abnormal bony signal. There is lumbarization of S1. Moderate to prominent dilation of the urin saleem bladder with urine, new since prior CT from previous day.T12 -- L1: No significant stenosis.L1 -- L2: Possible minimal central disc bulge without significant stenosis.L2 -- L3: No significant stenos is.L3 -- L4: No significant stenosis.L4 -- L5: Mild posterior element hypertrophy cause little centra l canal and right lateral recess narrowing. Mild diffuse disc bulge contributes to mild neural forami nal narrowing.L5 -- S1:No significant stenosis. Minimal facet arthropathy.IMPRESSIONNo disc herniatio ns are seen but likely mild central disc bulges are present at L1-2 and L4-5. No significant stenoses are seen.Electronically signed by: López Joseph (Mar 10, 2019 11:03:25)
[2019-03-10] MEDS ORDERED: DULCOLAX SUPPOSITORY 10 MG RECTAL ONE (12:32)
--- NOTE | 2019-03-10 15:50 | DR.PROGNOT ---
Hospital Progress Notes - Progress Note for Day of: Progress Note Date: 03/10/19 - Chief Complaint Chief Complaint: still having abdominal pain , no nausea or vomiting today . abdominal xray showed no bowel obstruction . - Past Medical Family Social History Past Med/Fam/Surg Hx: No changes since H&P Allergies: Allergies No Known Drug Allergies [NKDA] Allergy (Verified 03/08/19 15:07) - Review Of Systems ROS: No change since H&P - Vital Signs Vital Signs: Temperature 98.6 F Pulse Rate [Left Brachial] 97 Respiratory Rate 18 Blood Pressure [Right Arm] 141/93 Blood Pressure [Left Arm] 115/62 Blood Pressure 121/66 O2 Sat by Pulse Oximetry 93 - Physical Exam Oriented: Normal Eyes: Normal Ear: Normal Nose: Normal Throat: Normal Cardiovascular: Tachycardia GI:Auscultation: Decreased GI:Palpation: Normal GI: Tenderness: Diffuse (soft , full abdomen with diffuse tenderness , no rebound . BS +) Skin: Diaphoresis Musculoskeletal: Right, Left, Back:Lumbar Psychiatric: Anxiety Affect: Anxious Speech Pattern: Clear, Appropriate - Laboratory and Diagnostics Result Diagrams: 03/10/19 05:40 03/10/19 05:40 Labs: Laboratory WBC 7.7 X10^3/uL (3.6-10.0) 03/10/19 05:40 RBC 4.32 X10^6/uL (4.7-6.0) L 03/10/19 05:40 Hgb 13.4 g/dL (13.5-18.0) L 03/10/19 05:40 Hct 37.8 % (42.0-54.0) L 03/10/19 05:40 MCV 87.6 fL (80.0-100.0) 03/10/19 05:40 MCH 31.1 pg (27.0-34.0) 03/10/19 05:40 MCHC 35.4 g/dL (33.0-35.0) H 03/10/19 05:40 RDW 13.4 % (11.6-16.5) 03/10/19 05:40 Plt Count 207 X10^3/uL (150.0-450.0) 03/10/19 05:40 MPV 7.1 fL (7.4-11.0) L 03/10/19 05:40 Neut % (Auto) 74.3 % (42.0-75.0) 03/10/19 05:40 Lymph % (Auto) 14.9 % (21.0-51.0) L 03/10/19 05:40 [place] % (Auto) 9.4 % (0.0-13.0) 03/10/19 05:40 Eos % (Auto) 1.0 % (0.9-2.9) 03/10/19 05:40 Baso % (Auto) 0.4 % (0.2-1.0) 03/10/19 05:40 Neut # (Auto) 5.7 x10^3/uL (2.2-4.8) H 03/10/19 05:40 Lymph # (Auto) 1.1 X10^3/uL (1.3-2.9) L 03/10/19 05:40 [place] # (Auto) 0.7 x10^3/uL (0.3-0.8) 03/10/19 05:40 Eos # (Auto) 0.1 x10^3/uL (0.0-0.2) 03/10/19 05:40 Baso # (Auto) 0.0 X10^3/uL (0.0-0.1) 03/10/19 05:40 Absolute Nucleated RBC 0.0 /100WBC 03/10/19 05:40 Sodium 139 mmol/L (136-145) 03/10/19 05:40 Corrected Sodium TNP 03/10/19 05:40 Potassium 3.5 mmol/L (3.5-5.1) 03/10/19 05:40 Chloride 102 mmol/L (98-107) 03/10/19 05:40 Carbon Dioxide 29.4 mmol/L (21-32) 03/10/19 05:40 BUN 16 mg/dL (7-18) 03/10/19 05:40 Creatinine 1.09 mg/dL (0.70-1.30) 03/10/19 05:40 Est GFR (MDRD) Af Amer > 60 (>60) 03/10/19 05:40 Est GFR (MDRD) Non-Af > 60 (>60) 03/10/19 05:40 Glucose 105 mg/dL (65-99) H 03/10/19 05:40 Lactic Acid 2.0 mmol/L (0.4-2.0) 03/08/19 15:40 Calcium 7.7 mg/dL (8.5-10.1) L 03/10/19 05:40 Corrected Calcium 8.3 mg/dL (8.5-10.1) L 03/10/19 05:40 Magnesium 2.6 mg/dL (1.7-2.9) 03/09/19 05:10 Total Bilirubin 1.50 mg/dL (0.2-1.0) H 03/10/19 05:40 AST 16 Units/L (15-37) 03/10/19 05:40 ALT 26 Units/L (12-78) 03/10/19 05:40 Alkaline Phosphatase 55 Units/L (46-116) 03/10/19 05:40 Total Protein 6.2 g/dL (6.4-8.2) L 03/10/19 05:40 Albumin 3.3 g/dL (3.4-5.0) L 03/10/19 05:40 Globulin 2.9 g/dL (2.5-4.5) 03/10/19 05:40 Albumin/Globulin Ratio 1.1 Ratio (1.1-2.1) 03/10/19 05:40 Amylase 21 Units/L (25-115) L 03/08/19 15:40 Lipase 50 Units/L (73-393) L 03/08/19 15:40 Specimen Type Clean catch urine 03/09/19 09:12 Urine Color Dark yellow (YELLOW) 03/09/19 09:12 Urine Appearance Slightly hazy (CLEAR) 03/09/19 09:12 Urine pH 5.0 (5.0 - 8.0) 03/09/19 09:12 Ur Specific [place] 1.025 (1.000-1.030) 03/09/19 09:12 Urine Protein 2+ (NEGATIVE) 03/09/19 09:12 Urine Glucose (UA) Negative (NEGATIVE) 03/09/19 09:12 Urine Ketones 1+ (NEGATIVE) 03/09/19 09:12 Urine Occult Blood Negative (NEGATIVE) 03/09/19 09:12 Urine Nitrite Negative (NEGATIVE) 03/09/19 09:12 Urine Bilirubin Negative (NEGATIVE) 03/09/19 09:12 Urine Urobilinogen Normal (NORMAL) 03/09/19 09:12 Ur Leukocyte Esterase Negative (NEGATIVE) 03/09/19 09:12 Urine RBC 0-2 /HPF (0-3) 03/09/19 09:12 Urine WBC 0-2 /HPF (0-5) 03/09/19 09:12 Ur Squamous Epith Cells Few /HPF (NEGATIVE) 03/09/19 09:12 Amorphous Sediment 1+ /HPF (NEGATIVE) 03/09/19 09:12 Urine Bacteria Trace /HPF (NEGATIVE) 03/09/19 09:12 Hyaline Casts Few /LPF (NEGATIVE) 03/09/19 09:12 Coarse Granular Casts Few /HPF (NEGATIVE) 03/09/19 09:12 Urine Mucus Moderate /HPF (NEGATIVE) 03/09/19 09:12 Ur Culture Indicated? No/not indicated 03/09/19 09:12 - Assessment and Plan 1: subsiding abdominal pain and small bowel ileus mostly infectious etiology. will follow in the office next week .
[2019-03-10] MEDS ORDERED: DILAUDID INJ IVP PRN (17:58)
[2019-03-10] MEDS: MILK OF MAGNESIA PO SCH ×2 (18:14→20:21)
[2019-03-10] MEDS: KLONOPIN TAB 0.5 MG PO SCH (20:21)
[2019-03-11 06:15] LABS: BASOPHILS % (AUTO) 0.1 % (0.2-1.0); HEMATOCRIT 38.3 % (42.0-54.0); HEMOGLOBIN 13.9 g/dL (13.5-18.0); LYMPHOCYTES # (AUTO) 0.5 X10^3/uL (1.3-2.9); LYMPHOCYTES % (AUTO) 7.6 % (21.0-51.0); MEAN CORPUSCULAR HEMOGLOBIN 30.9 pg (27.0-34.0); MEAN CORPUSCULAR HGB CONC 36.2 g/dL (33.0-35.0); MEAN CORPUSCULAR VOLUME 85.5 fL (80.0-100.0); MEAN PLATELET VOLUME 7.2 fL (7.4-11.0); MONOCYTES # (AUTO) 0.4 x10^3/uL (0.3-0.8); MONOCYTES % (AUTO) 6.1 % (0.0-13.0); NEUTROPHILS # (AUTO) 6.2 x10^3/uL (2.2-4.8); NEUTROPHILS % (AUTO) 86.2 % (42.0-75.0); PLATELET COUNT 200 X10^3/uL (150.0-450.0); RED BLOOD COUNT 4.48 X10^6/uL (4.7-6.0); RED CELL DISTRIBUTION WIDTH 13.2 % (11.6-16.5); WHITE BLOOD COUNT 7.2 X10^3/uL (3.6-10.0)
[2019-03-11] MEDS: ZOSYN VIAL 3.375 GRAMS 3.375 G in NS 100 ML IV + SPIKE MINIBAG* 100 ML IV SCH (06:18)
[2019-03-11 06:34] LABS: ALANINE AMINOTRANSFERASE 27 Units/L (12-78); ALBUMIN 3.1 g/dL (3.4-5.0); ALKALINE PHOSPHATASE 57 Units/L (46-116); ASPARTATE AMINO TRANSFERASE 14 Units/L (15-37); BLOOD UREA NITROGEN 12 mg/dL (7-18); CALCIUM 8.3 mg/dL (8.5-10.1); CARBON DIOXIDE 30.3 mmol/L (21-32); CHLORIDE 105 mmol/L (98-107); COR NA(FOR HYPERGLY) 142 mmol/L (136-145); CREATININE 0.84 mg/dL (0.70-1.30); SODIUM 141 mmol/L (136-145); TOTAL PROTEIN 6.2 g/dL (6.4-8.2); eGFR NON BLACK RACES > 60 (>60)
[2019-03-11] MEDS ORDERED: DILAUDID INJ IVP PRN (08:00)
[2019-03-11 08:29] VITALS: BP 124/77
[2019-03-11] MEDS: MILK OF MAGNESIA PO SCH (09:51)
[2019-03-11] MEDS: COZAAR PO SCH (09:51)
[2019-03-11] MEDS: NORVASC TAB 10 MG PO SCH (09:51)
[2019-03-11] MEDS: PROTONIX INJ 40 MG VIAL IVP SCH (09:51)
== END 2019-03-11 14:05 | disposition home or self-care (01) ==
LOC: MED/SURG
PROVIDERS: ADMIT Internal Medicine; ATTEND Internal Medicine
DX: I10 Essential (primary) hypertension; M47.817 Spondylosis without myelopathy or radiculopathy, lumbosacral region; K59.09 Other constipation; K21.9 Gastro-esophageal reflux disease without esophagitis; M51.36 Other intervertebral disc degeneration, lumbar region; R11.2 Nausea with vomiting, unspecified; R10.84 Generalized abdominal pain; K52.89 Other specified noninfective gastroenteritis and colitis; K56.7 Ileus, unspecified; Z79.899 Other long term (current) drug therapy; M48.061 Spinal stenosis, lumbar region without neurogenic claudication
CPT/HCPCS: 36415; 72148; 74000; 74018; 74022; 74176; 80053; 81001; 82150; 83605; 83690; 83735; 85025; 96360; 96361; 96374; A4216; A4222; C9113; G0378; J1170; J1200; J2270; J2405; J2543; J2765; J2920; J3475; J3480; J7030; J7050

== ENCOUNTER 2019-06-02 16:12 | Observation (INO) ==
[2019-06-02] MEDS ORDERED: DILAUDID INJ IVP PRN ×2 (17:25→17:29)
[2019-06-02] MEDS ORDERED: ZOFRAN INJ 4 MG VIAL IVP PRN ×2 (17:29)
--- NOTE | 2019-06-02 17:37 | DR.H&P ---
H&P - History & Physical for Day of: H&P Date: 06/02/19 - Chief Complaint Chief Complaint: ABDOMINAL PAIN, NV - History of Present Illness History of Present Illness: PT IS 49WM DIRECT ADMIT FROM DR ALEJO OFFICE WITH CO INTRACTABLE ABDOMINAL PAIN, DISTENTION AND N/V. PT WAS EVALUATED WITH SYMPTOMS LAST WEEK, GIVEN BENTYL, CLEAR LIQUIDS DIET WITH TEMPORARY IMPROVEMENT. PAIN RESUMED SEVERE LAST PM WITH N/V. PT DENIES ANY FEVER, CCC, OR KNOWN COVID 19 EXPOSURE. PT ADMITTED FOR TREATMENT OF ACUTE ILLNESS, SOB. - Past Medical History Past Medical History: Arthritis, GERD, Hypertension Additional Medical History: SBO - Past Surgical History Surgical History: Appendectomy, Bowel Resection, Cholecystectomy, Ortho Surgery Additional Surgical History: Lysis of adhesions for SBO. - Family History Family Medical History: [place], Hypertension - Social History Have you used tobacco products in the last 12 months: No Type of Tobacco Use: None Does any household member use tobacco: No Alcohol Use: None Drug Use: None Risks, benefits, and alternatives of opioids discussed: No Prescription drug monitoring program results: PDMP reviewed and no concerns identified - Medications Home Medications: No Known Drug Allergies [NKDA] Allergy (Verified 03/08/19 15:07) - Review of Systems Constitutional: Malaise. denies: Fever Eyes: No Symptoms Reported ENT: No Symptoms Reported Respiratory: No Symptoms Reported Cardiovascular: No Symptoms Reported Gastrointestinal: Nausea, Vomiting, Abdominal Pain Genitourinary: No Symptoms Reported Musculoskeletal: Back Pain Skin: No Symptoms Reported Neurological: No Symptoms Reported - Physical Exam Vital Signs: Blood Pressure [Right Arm] 141/93 Blood Pressure [Left Arm] 124/77 Oriented: Normal Eyes: Normal Ear: Normal Nose: Normal Throat: Normal Respiratory: Clear Throughout : Normal Auscultation: Bowel Sounds: Normal Palpation: Normal Tenderness: Diffuse Skin: Decreased Turgur Musculoskeletal: Normal Psychiatric: Anxiety Affect: Anxious Speech Pattern: Clear, Appropriate - Assessment/Plan (1) Abdominal pain Qualifiers: Abdominal location: upper abdomen, unspecified Qualified Code(s): R10.10 - Upper abdominal pain, unspecified Status: Acute Plan: ADMIT, NPO EXCEPT ICE CHIPS. KUB ON ADMISSION, IV HYDRATION. PAIN CONTROL, NAUSEA CONTROL. VERIFY HOME MEDICATION, BP CONTROL. ADMISSION LABS, CONSULT DR SHIN, NG TUBE AT [facility] FOR INTRACTABLE N/V (2) Nausea and vomiting in adult patient Status: Acute (3) Small bowel obstruction Status: Acute (4) GERD (gastroesophageal reflux disease) Status: Chronic - Allergies Allergies/Adverse Reactions: Allergies Allergy/AdvReac Type Severity Reaction Status Date / Time No Known Drug Allergies Allergy Verified 03/08/19 15:07 [NKDA]
[2019-06-02 17:55] VITALS: BMI 34.7
[2019-06-02] MEDS ORDERED: NS 1000 ML 1,000 ML IV SCH (18:00)
--- NOTE | 2019-06-02 18:05 | RAD ---
Exam:ACUTE ABDOMEN SERIESIndication: BOWEL OBSTRUCTIONComparison: [03/08/2019]Findings: [The lungs are clear. No pleural effusion or pneumothorax. The heart size is within normal limts.The bowel gas pattern is unremarkable, specifically there is no radiographic evidence to suggest an obstruction. No free air or pneumatosis.No definite mass or abnormal calcification within the abdomen or pelvis.No acute osseous abnormality. Previous cholecystectomy.Impression:No acute cardiopulmonary abnormality.No acute radiographic abnormality within the abdomen or pelvis.]Electronically signed by: SMITH BRANTLEY (Jun 02, 2019 18:04:30)
[2019-06-02] MEDS: D5 1/2 NS 1000 ML 1,000 ML IV SCH (18:24)
[2019-06-02] MEDS: PROTONIX INJ 40 MG VIAL IVP SCH (18:24)
[2019-06-02 18:27] LABS: BASOPHILS % (AUTO) 0.3 % (0.2-1.0); EOSINOPHILS # (AUTO) 0.2 x10^3/uL (0.0-0.2); EOSINOPHILS % (AUTO) 2.7 % (0.9-2.9); HEMATOCRIT 42.7 % (42.0-54.0); HEMOGLOBIN 15.1 g/dL (13.5-18.0); LYMPHOCYTES # (AUTO) 1.3 X10^3/uL (1.3-2.9); MEAN CORPUSCULAR HEMOGLOBIN 30.4 pg (27.0-34.0); MEAN CORPUSCULAR HGB CONC 35.4 g/dL (33.0-35.0); MEAN CORPUSCULAR VOLUME 85.7 fL (80.0-100.0); MEAN PLATELET VOLUME 7.8 fL (7.4-11.0); MONOCYTES # (AUTO) 0.6 x10^3/uL (0.3-0.8); MONOCYTES % (AUTO) 9.3 % (0.0-13.0); NEUTROPHILS # (AUTO) 3.9 x10^3/uL (2.2-4.8); NEUTROPHILS % (AUTO) 65.7 % (42.0-75.0); PLATELET COUNT 231 X10^3/uL (150.0-450.0); RED BLOOD COUNT 4.98 X10^6/uL (4.7-6.0); RED CELL DISTRIBUTION WIDTH 12.7 % (11.6-16.5)
[2019-06-02 18:40] LABS: ALANINE AMINOTRANSFERASE 28 Units/L (12-78); ALBUMIN 3.8 g/dL (3.4-5.0); ALKALINE PHOSPHATASE 42 Units/L (46-116); ASPARTATE AMINO TRANSFERASE 20 Units/L (15-37); BLOOD UREA NITROGEN 13 mg/dL (7-18); CALCIUM 8.7 mg/dL (8.5-10.1); CARBON DIOXIDE 29.4 mmol/L (21-32); CHLORIDE 104 mmol/L (98-107); CREATININE 1.06 mg/dL (0.70-1.30); SODIUM 141 mmol/L (136-145); TOTAL PROTEIN 6.4 g/dL (6.4-8.2); eGFR NON BLACK RACES > 60 (>60)
[2019-06-02] MEDS ORDERED: DILAUDID INJ ONE (18:40)
[2019-06-02] MEDS: DILAUDID INJ IVP PRN ×2 (18:45→23:15)
[2019-06-02] MEDS ORDERED: POTASSIUM CHLORIDE LIQ 20 MEQ UDC PO PRN (19:01)
[2019-06-02] MEDS ORDERED: POTASSIUM CHL 40 MEQ/NS 0.45% 500 ML IV PRN (19:01)
[2019-06-02] MEDS ORDERED: MICRO K EXTEN CAP 10 MEQ PO PRN (19:01)
[2019-06-02] MEDS ORDERED: KLOR-CON PO PRN (19:01)
[2019-06-02] MEDS ORDERED: POTASSIUM CHL 60 MEQ/NS 0.45% 500 ML IV PRN (19:01)
[2019-06-02] MEDS ORDERED: K-DUR TAB 20 MEQ PO PRN (19:01)
[2019-06-02] MEDS ORDERED: MAGNESIUM SULFATE 1 GRAM/100 mL PREMIX 1 GM/100 ML BAG IV PRN (19:01)
[2019-06-02] MEDS: K-RIDER 10 MEQ/NS 100 ML 10 MEQ/100 ML BAG IV PRN ×3 (20:24→22:36)
[2019-06-02] MEDS: COLACE CAP 100 MG PO SCH (20:32)
[2019-06-02 20:42] LABS: BILIRUBIN,URINE NEGATIVE (NEGATIVE); BLOOD/HEMOGLOBIN,URINE NEGATIVE (NEGATIVE); GLUCOSE, URINE NEGATIVE (NEGATIVE); KETONES,URINE NEGATIVE (NEGATIVE); LEUKOCYTE ESTERASE ,URINE NEGATIVE (NEGATIVE); NITRITES,URINE NEGATIVE (NEGATIVE); PROTEIN,URINE NEGATIVE (NEGATIVE); UROBILINOGEN,URINE NORMAL (NORMAL)
[2019-06-02 20:44] LABS: APPEARANCE,URINE CLEAR (CLEAR); COLOR,URINE YELLOW (YELLOW)
[2019-06-03] MEDS: K-RIDER 10 MEQ/NS 100 ML 10 MEQ/100 ML BAG IV PRN ×6 (00:45→14:19)
[2019-06-03] MEDS: D5 1/2 NS 1000 ML 1,000 ML IV SCH (02:33)
[2019-06-03] MEDS: DILAUDID INJ IVP PRN ×4 (05:11→20:10)
[2019-06-03 05:31] LABS: BASOPHILS % (AUTO) 0.2 % (0.2-1.0); EOSINOPHILS # (AUTO) 0.1 x10^3/uL (0.0-0.2); EOSINOPHILS % (AUTO) 2.4 % (0.9-2.9); HEMATOCRIT 39.8 % (42.0-54.0); HEMOGLOBIN 14.3 g/dL (13.5-18.0); LYMPHOCYTES # (AUTO) 1.2 X10^3/uL (1.3-2.9); MEAN CORPUSCULAR HEMOGLOBIN 30.8 pg (27.0-34.0); MEAN CORPUSCULAR HGB CONC 35.9 g/dL (33.0-35.0); MEAN CORPUSCULAR VOLUME 85.9 fL (80.0-100.0); MEAN PLATELET VOLUME 8.1 fL (7.4-11.0); MONOCYTES # (AUTO) 0.5 x10^3/uL (0.3-0.8); MONOCYTES % (AUTO) 8.5 % (0.0-13.0); NEUTROPHILS # (AUTO) 4.3 x10^3/uL (2.2-4.8); NEUTROPHILS % (AUTO) 69.9 % (42.0-75.0); PLATELET COUNT 219 X10^3/uL (150.0-450.0); RED BLOOD COUNT 4.63 X10^6/uL (4.7-6.0); RED CELL DISTRIBUTION WIDTH 12.5 % (11.6-16.5); WHITE BLOOD COUNT 6.1 X10^3/uL (3.6-10.0)
[2019-06-03 05:39] LABS: ALANINE AMINOTRANSFERASE 25 Units/L (12-78); ALBUMIN 3.4 g/dL (3.4-5.0); ALKALINE PHOSPHATASE 37 Units/L (46-116); ASPARTATE AMINO TRANSFERASE 21 Units/L (15-37); BLOOD UREA NITROGEN 11 mg/dL (7-18); CALCIUM 8.4 mg/dL (8.5-10.1); CARBON DIOXIDE 29.5 mmol/L (21-32); CHLORIDE 104 mmol/L (98-107); COR NA(FOR HYPERGLY) 139 mmol/L (136-145); CREATININE 0.98 mg/dL (0.70-1.30); SODIUM 139 mmol/L (136-145); TOTAL PROTEIN 5.7 g/dL (6.4-8.2); eGFR NON BLACK RACES > 60 (>60)
[2019-06-03] MEDS ORDERED: D5 1/2 NS + KCL 20 MEQ/L 1,000 ML IV ONE (06:26)
[2019-06-03] MEDS: D5 1/2 NS + KCL 20 MEQ/L 1,000 ML IV SCH ×3 (06:27→20:10)
[2019-06-03] MEDS: PROTONIX INJ 40 MG VIAL IVP SCH (08:41)
[2019-06-03] MEDS ORDERED: PROTONIX INJ 40 MG VIAL IVP SCH (09:00)
[2019-06-03] MEDS: BENADRYL INJ 50 MG VIAL IVP PRN ×2 (12:43→18:42)
--- NOTE | 2019-06-03 16:58 | CT ---
HISTORYABD PAIN, BOWEL OBTRUCTION history of cholecystectomy and appendectomy.STUDYABDOMEN/PELVIS WITH CONCOMPARISONCT abdomen and pelvis without contrast August 29, 2018TECHNIQUEMultiple axial images of the abdomen and pelvis were obtained from the lung bases to the pubic symphysis after the administration of IV and oral contrast. Dose reduction techniques including Automated Exposure Control (AEC) and adjustment of mA and kV were utilized.FINDINGSThe visualized portions of the lung bases are unremarkable . The liver, spleen, pancreas, kidneys, and adrenal glands are unremarkable in their CT appearance. The gallbladder is surgically absent with surgical clips in the gallbladder fossa. No focal hepatic lesions are observed. The common duct is dilated status post reservoir effect.. No significant mesenteric lymphadenopathy or stranding can be observed. The abdominal aorta and IVC are normal there is no aneurysm or retroperitoneal adenopathy. No free fluid or free air is seen within the abdomen. No bowel wall thickening or bowel dilatation is present. There is no evidence of bowel obstruction. A surgical clip is seen at the tip of the cecum consistent with prior appendectomy. The rectosigmoid colon is normal without diverticuli. The colon is unremarkable. Specifically, there is no diverticulosis noted within the sigmoid colon. The urinary bladder is grossly unremarkable. The bony structures are grossly intact. The inguinal femoral regions normal.IMPRESSIONUnremarkable CT of the abdomen and pelvis. The gallbladder and appendix are surgically absent. No acute findings are seen in the abdomen or pelvis.Electronically signed by: BETH MIRZA (Jun 03, 2019 16:57:38)
[2019-06-03] MEDS: COLACE CAP 100 MG PO SCH (20:10)
--- NOTE | 2019-06-03 23:34 | DR.PROGNOT ---
Hospital Progress Notes - Progress Note for Day of: Progress Note Date: 06/03/19 - Chief Complaint Chief Complaint: Pt is admitted with abdominal pain , distention , nausea and vomiting . no vomiting today but still having abdominal pain and bloating feeling .bdominal CT was read as normal , no IBD ,obstruction or diverticulitis . hypokalemia is corrected - Past Medical Family Social History Allergies: Allergies No Known Drug Allergies [NKDA] Allergy (Verified 03/08/19 15:07) - Review Of Systems ROS: No change since H&P - Vital Signs Vital Signs: Temperature 97.7 F Pulse Rate [Right Radial] 60 Respiratory Rate 18 Blood Pressure [Right Arm] 104/64 Blood Pressure [Left Arm] 124/77 O2 Sat by Pulse Oximetry 98 - Physical Exam Oriented: Normal Eyes: Normal Ear: Normal Nose: Normal Throat: Normal : Normal GI:Auscultation: Normal GI:Palpation: Normal GI: Tenderness: Diffuse (moderate upper abdominal tenderness with some gaurding , BS slightly hypoactive .) Skin: Decreased Turgur Musculoskeletal: Normal Psychiatric: Anxiety Affect: Anxious Speech Pattern: Clear, Appropriate - Laboratory and Diagnostics Result Diagrams: 06/03/19 04:50 06/03/19 17:35 Labs: Laboratory WBC 6.1 X10^3/uL (3.6-10.0) 06/03/19 04:50 RBC 4.63 X10^6/uL (4.7-6.0) L 06/03/19 04:50 Hgb 14.3 g/dL (13.5-18.0) 06/03/19 04:50 Hct 39.8 % (42.0-54.0) L 06/03/19 04:50 MCV 85.9 fL (80.0-100.0) 06/03/19 04:50 MCH 30.8 pg (27.0-34.0) 06/03/19 04:50 MCHC 35.9 g/dL (33.0-35.0) H 06/03/19 04:50 RDW 12.5 % (11.6-16.5) 06/03/19 04:50 Plt Count 219 X10^3/uL (150.0-450.0) 06/03/19 04:50 MPV 8.1 fL (7.4-11.0) 06/03/19 04:50 Neut % (Auto) 69.9 % (42.0-75.0) 06/03/19 04:50 Lymph % (Auto) 19.0 % (21.0-51.0) L 06/03/19 04:50 [place] % (Auto) 8.5 % (0.0-13.0) 06/03/19 04:50 Eos % (Auto) 2.4 % (0.9-2.9) 06/03/19 04:50 Baso % (Auto) 0.2 % (0.2-1.0) 06/03/19 04:50 Neut # (Auto) 4.3 x10^3/uL (2.2-4.8) 06/03/19 04:50 Lymph # (Auto) 1.2 X10^3/uL (1.3-2.9) L 06/03/19 04:50 [place] # (Auto) 0.5 x10^3/uL (0.3-0.8) 06/03/19 04:50 Eos # (Auto) 0.1 x10^3/uL (0.0-0.2) 06/03/19 04:50 Baso # (Auto) 0.0 X10^3/uL (0.0-0.1) 06/03/19 04:50 Absolute Nucleated RBC 0.0 /100WBC 06/03/19 04:50 PT 13.4 SECONDS (11.8-14.3) 06/02/19 18:13 INR Target Range - 06/02/19 18:13 INR 1.05 (0.8-1.3) 06/02/19 18:13 Sodium 139 mmol/L (136-145) 06/03/19 04:50 Corrected Sodium 139 mmol/L (136-145) 06/03/19 04:50 Potassium 3.5 mmol/L (3.5-5.1) 06/03/19 17:35 Chloride 104 mmol/L (98-107) 06/03/19 04:50 Carbon Dioxide 29.5 mmol/L (21-32) 06/03/19 04:50 BUN 11 mg/dL (7-18) 06/03/19 04:50 Creatinine 0.98 mg/dL (0.70-1.30) 06/03/19 04:50 Est GFR (MDRD) Af Amer > 60 (>60) 06/03/19 04:50 Est GFR (MDRD) Non-Af > 60 (>60) 06/03/19 04:50 Glucose 114 mg/dL (65-99) H 06/03/19 04:50 Calcium 8.4 mg/dL (8.5-10.1) L 06/03/19 04:50 Corrected Calcium TNP 06/03/19 04:50 Magnesium 2.1 mg/dL (1.7-2.9) 06/02/19 18:13 Total Bilirubin 1.00 mg/dL (0.2-1.0) 06/03/19 04:50 AST 21 Units/L (15-37) 06/03/19 04:50 ALT 25 Units/L (12-78) 06/03/19 04:50 Alkaline Phosphatase 37 Units/L (46-116) L 06/03/19 04:50 Total Protein 5.7 g/dL (6.4-8.2) L 06/03/19 04:50 Albumin 3.4 g/dL (3.4-5.0) 06/03/19 04:50 Globulin 2.3 g/dL (2.5-4.5) L 06/03/19 04:50 Albumin/Globulin Ratio 1.5 Ratio (1.1-2.1) 06/03/19 04:50 Specimen Type Clean catch urine 06/02/19 20:16 Urine Color Yellow (YELLOW) 06/02/19 20:16 Urine Appearance Clear (CLEAR) 06/02/19 20:16 Urine pH 7.0 (5.0 - 8.0) 06/02/19 20:16 Ur Specific [place] 1.015 (1.000-1.030) 06/02/19 20:16 Urine Protein Negative (NEGATIVE) 06/02/19 20:16 Urine Glucose (UA) Negative (NEGATIVE) 06/02/19 20:16 Urine Ketones Negative (NEGATIVE) 06/02/19 20:16 Urine Occult Blood Negative (NEGATIVE) 06/02/19 20:16 Urine Nitrite Negative (NEGATIVE) 06/02/19 20:16 Urine Bilirubin Negative (NEGATIVE) 06/02/19 20:16 Urine Urobilinogen Normal (NORMAL) 06/02/19 20:16 Ur Leukocyte Esterase Negative (NEGATIVE) 06/02/19 20:16 - Assessment and Plan 1: recurrent abdominal pain and distention with nausea , vomiting . hypokalemia ( corrected now ). GERD , possible PUD . abdominal adhesions . for EGD in am .
[2019-06-04] MEDS: DILAUDID INJ IVP PRN ×2 (03:09→08:05)
[2019-06-04] MEDS: BENADRYL INJ 50 MG VIAL IVP PRN ×2 (03:19→09:39)
[2019-06-04] MEDS: D5 1/2 NS + KCL 20 MEQ/L 1,000 ML IV SCH (06:35)
[2019-06-04 06:58] LABS: BASOPHILS % (AUTO) 0.2 % (0.2-1.0); EOSINOPHILS # (AUTO) 0.2 x10^3/uL (0.0-0.2); EOSINOPHILS % (AUTO) 2.5 % (0.9-2.9); HEMATOCRIT 40.3 % (42.0-54.0); HEMOGLOBIN 14.4 g/dL (13.5-18.0); LYMPHOCYTES # (AUTO) 1.1 X10^3/uL (1.3-2.9); LYMPHOCYTES % (AUTO) 15.7 % (21.0-51.0); MEAN CORPUSCULAR HEMOGLOBIN 30.7 pg (27.0-34.0); MEAN CORPUSCULAR HGB CONC 35.6 g/dL (33.0-35.0); MEAN CORPUSCULAR VOLUME 86.3 fL (80.0-100.0); MEAN PLATELET VOLUME 8.2 fL (7.4-11.0); MONOCYTES # (AUTO) 0.5 x10^3/uL (0.3-0.8); MONOCYTES % (AUTO) 6.7 % (0.0-13.0); NEUTROPHILS # (AUTO) 5.2 x10^3/uL (2.2-4.8); NEUTROPHILS % (AUTO) 74.9 % (42.0-75.0); PLATELET COUNT 197 X10^3/uL (150.0-450.0); RED BLOOD COUNT 4.67 X10^6/uL (4.7-6.0); RED CELL DISTRIBUTION WIDTH 12.8 % (11.6-16.5); WHITE BLOOD COUNT 6.9 X10^3/uL (3.6-10.0)
[2019-06-04 07:20] LABS: ALANINE AMINOTRANSFERASE 29 Units/L (12-78); ALBUMIN 3.3 g/dL (3.4-5.0); ALKALINE PHOSPHATASE 36 Units/L (46-116); ASPARTATE AMINO TRANSFERASE 23 Units/L (15-37); BLOOD UREA NITROGEN 6 mg/dL (7-18); CALCIUM 8.1 mg/dL (8.5-10.1); CARBON DIOXIDE 28.7 mmol/L (21-32); CHLORIDE 106 mmol/L (98-107); COR CA(FOR HYPOALB) 8.7 mg/dL (8.5-10.1); CREATININE 0.93 mg/dL (0.70-1.30); SODIUM 141 mmol/L (136-145); TOTAL PROTEIN 5.8 g/dL (6.4-8.2); eGFR NON BLACK RACES > 60 (>60)
[2019-06-04] MEDS: PROTONIX INJ 40 MG VIAL IVP SCH (08:06)
[2019-06-04] MEDS ORDERED: NS 500 ML IV 500 ML IV ONE (08:50)
[2019-06-04] MEDS ORDERED: DIPRIVAN VIAL 20 ML ONE (08:54)
--- NOTE | 2019-06-04 09:11 | OR.IMMED ---
Immediate Post-Op Note - Immediate Post-Op Note Pre-Op Diagnosis: abdominal pain , nausea, vomiting Post-Op Diagnosis: moderate gastritis of the antrum . Procedure: EGD with Bx Surgeon/Buttonhole Maker: Chau Specimens Removed: Bx from the Antrum and Du Drains: NONE Complications: none Condition: Stable (on foft diet .. F/U in one week.)
[2019-06-04 14:07] VITALS: BP 115/71
== END 2019-06-04 13:40 | disposition home or self-care (01) ==
LOC: MED/SURG
PROVIDERS: ADMIT Internal Medicine; ATTEND Internal Medicine
DX: K56.690 Other partial intestinal obstruction; K29.60 Other gastritis without bleeding; R11.2 Nausea with vomiting, unspecified; R10.10 Upper abdominal pain, unspecified; E87.6 Hypokalemia; Z79.899 Other long term (current) drug therapy; I10 Essential (primary) hypertension; M51.36 Other intervertebral disc degeneration, lumbar region; K21.9 Gastro-esophageal reflux disease without esophagitis

== ENCOUNTER 2019-10-22 18:23 | Inpatient (IN) ==
--- NOTE | 2019-10-22 18:31 | DR.ABDMALE ---
HPI Time seen Time Seen by Provider: 10/22/19 18:31 HPI comment HPI Comment: 49 yo cm w/ prev hx of recurrent sbo's presents w/ recurrent diff abd pain onset after eating lunch today. No f/c. Last BM scant yesterday. Mode of arrival Mode of Arrival: Ambulatory Timing Came on: Gradually Duration How lon Duration: Hours Location Location: Diffuse Severity Severity: Moderate Quality Quality: Aching Context Onset: Gradually History of: Abdominal surgery, Bowel obstruction and Similar pain (dx); negative Urolithiasis Modifying factors Worsening Factors: Nothing Improving Factors: Nothing Associated signs and symptoms Associated Signs and Symptoms: Constipation; denies Nausea, Vomiting, Diarrhea, Hematochezia, Melena, Frequency and Hematuria PMH PMH Past Medical History: Arthritis, GERD and Hypertension Past Surgical History: Yes Surgical History: Appendectomy, Bowel Resection, Cholecystectomy and Ortho Surgery Family History Family Medical History: [place] and Hypertension Social History Type of Tobacco Use: None Does any household member use tobacco: No Alcohol Use: None Do you use any recreational Drugs:: No Lives Where: Home ROS Review of Systems Constitutional: No Symptoms Reported Eyes: No Symptoms Reported ENTM: No Symptoms Reported Respiratoy: No Symptoms Reported Cardiovascular: No Symptoms Reported Gastrointestinal/Abdominal: Abdominal Pain and Constipation; negative Diarrhea, Nausea and Vomiting Genitourinary: No Symptoms Reported Neurological: No Symptoms Reported Musculoskeletal: No Symptoms Reported Integumentary: No Symptoms Reported Hematologic/Lymphatic: No Symptoms Reported Endocrine: No Symptoms Reported Psychiatric: No Symptoms Reported All Other Systems: Reviewed and Negative PE Vital Signs Vital Signs: Temp Pulse Resp BP BP BP Pulse Ox 10/22/19 20:55 18 10/22/19 18:28 97.2 F L 92 H 22 137/94 96 07/16/19 13:21 110/72 06/04/19 10:15 115/71 03/11/19 08:00 124/77 General Limitations: No Limitations General Appearance: Alert and In No Apparent Distress Head Head Exam: Normal Inspection Eyes Eye exam: Normal Appearance ENT ENT Exam: Normal Exam Neck Neck Exam: Normal Inspection Chest Chest Inspection: Normal Inspection Respiratory Respiratory Exam: Normal Lung Sounds Bilat Cardiovascular Cardiovascular Exam: Regular Rate and Normal Rhythm Abdominal Exam Abdominal Exam: Distention, Tenderness, Guarding and Dimnished Bowel Sounds Abdominal Tenderness: Diffuse and Moderate Rectal Rectal Exam: Deferred Back Back Exam: Normal Inspection Extremeties Extremities Exam: Normal Inspection Exam: Male: Deferred Neurologic Neurological Exam: Alert and Oriented X3 Psychiatric Psychiatric Exam: Normal Affect and Normal Mood Skin Skin Exam: Warm, Dry, Intact and Normal Color MDM Differential Diagnosis Differential Diagnosis: Appendicitis, Bowel Obstruction, Cholcystitis, Cholelethiasis, Constipation, Gastroenteritis, Hernia, Inflammatory BD, Ischemic Bowel, Pancreatitis and Urolithiasis COURSE Treatment Treatment: 49 yo presented w/ abd pain. CBC unremarkable as was bmp. Lipase normal. lft's wnl. CT abd/ pelvis c/w SBO. NPO, pain meds, ivf's. D/w hospitalist dr cadena whom agrees to admit. ROR Labs Reviewed Result Diagrams: 10/22/19 18:49 10/22/19 18:49 Laboratory: WBC 11.8 X10^3/uL (3.6-10.0) H 10/22/19 18:49 RBC 5.19 X10^6/uL (4.7-6.0) 10/22/19 18:49 Hgb 15.7 g/dL (13.5-18.0) 10/22/19 18:49 Hct 44.6 % (42.0-54.0) 10/22/19 18:49 MCV 85.9 fL (80.0-100.0) 10/22/19 18:49 MCH 30.3 pg (27.0-34.0) 10/22/19 18:49 MCHC 35.2 g/dL (33.0-35.0) H 10/22/19 18:49 RDW 14.3 % (11.6-16.5) 10/22/19 18:49 Plt Count 271 X10^3/uL (150.0-450.0) 10/22/19 18:49 MPV 7.1 fL (7.4-11.0) L 10/22/19 18:49 Neut % (Auto) 82.0 % (42.0-75.0) H 10/22/19 18:49 Lymph % (Auto) 10.4 % (21.0-51.0) L 10/22/19 18:49 [place] % (Auto) 6.2 % (0.0-13.0) 10/22/19 18:49 Eos % (Auto) 1.0 % (0.9-2.9) 10/22/19 18:49 Baso % (Auto) 0.4 % (0.2-1.0) 10/22/19 18:49 Neut # (Auto) 9.7 x10^3/uL (2.2-4.8) H 10/22/19 18:49 Lymph # (Auto) 1.2 X10^3/uL (1.3-2.9) L 10/22/19 18:49 [place] # (Auto) 0.7 x10^3/uL (0.3-0.8) 10/22/19 18:49 Eos # (Auto) 0.1 x10^3/uL (0.0-0.2) 10/22/19 18:49 Baso # (Auto) 0.0 X10^3/uL (0.0-0.1) 10/22/19 18:49 Absolute Nucleated RBC 0.1 /100WBC 10/22/19 18:49 Sodium 140 mmol/L (136-145) 10/22/19 18:49 Corrected Sodium 141 mmol/L (136-145) 10/22/19 18:49 Potassium 3.3 mmol/L (3.5-5.1) L 10/22/19 18:49 Chloride 103 mmol/L (98-107) 10/22/19 18:49 Carbon Dioxide 27.7 mmol/L (21-32) 10/22/19 18:49 BUN 16 mg/dL (7-18) 10/22/19 18:49 Creatinine 1.16 mg/dL (0.70-1.30) 10/22/19 18:49 Est GFR (MDRD) Af Amer > 60 (>60) 10/22/19 18:49 Est GFR (MDRD) Non-Af > 60 (>60) 10/22/19 18:49 Glucose 134 mg/dL (65-99) H 10/22/19 18:49 Calcium 9.2 mg/dL (8.5-10.1) 10/22/19 18:49 Corrected Calcium TNP 10/22/19 18:49 Total Bilirubin 0.90 mg/dL (0.2-1.0) 10/22/19 18:49 AST 17 Units/L (15-37) 10/22/19 18:49 ALT 32 Units/L (12-78) 10/22/19 18:49 Alkaline Phosphatase 76 Units/L (46-116) 10/22/19 18:49 Total Protein 7.3 g/dL (6.4-8.2) 10/22/19 18:49 Albumin 4.3 g/dL (3.4-5.0) 10/22/19 18:49 Globulin 3.0 g/dL (2.5-4.5) 10/22/19 18:49 Albumin/Globulin Ratio 1.4 Ratio (1.1-2.1) 10/22/19 18:49 Lipase 113 Units/L (73-393) 10/22/19 18:49 Specimen Type Clean catch urine 10/22/19 23:05 Urine Color Yellow (YELLOW) 10/22/19 23:05 Urine Appearance Clear (CLEAR) 10/22/19 23:05 Urine pH 6.5 (5.0 - 8.0) 10/22/19 23:05 Ur Specific [place] 1.010 (1.000-1.030) 10/22/19 23:05 Urine Protein 1+ (NEGATIVE) 10/22/19 23:05 Urine Glucose (UA) Negative (NEGATIVE) 10/22/19 23:05 Urine Ketones Negative (NEGATIVE) 10/22/19 23:05 Urine Occult Blood Negative (NEGATIVE) 10/22/19 23:05 Urine Nitrite Negative (NEGATIVE) 10/22/19 23:05 Urine Bilirubin Negative (NEGATIVE) 10/22/19 23:05 Urine Urobilinogen Normal (NORMAL) 10/22/19 23:05 Ur Leukocyte Esterase Negative (NEGATIVE) 10/22/19 23:05 Urine RBC None seen /HPF (0-3) 10/22/19 23:05 Urine WBC None seen /HPF (0-5) 10/22/19 23:05 Ur Squamous Epith Cells Rare /HPF (NEGATIVE) 10/22/19 23:05 Urine Bacteria Negative /HPF (NEGATIVE) 10/22/19 23:05 Ur Culture Indicated? No/not indicated 10/22/19 23:05 Opioid Opioid Risk Tool Age (Jun box if 16-45): No History of Preadolescent Sexual Abuse: No Total: 0 Total Score Risk Category: Low Risk Copyright: Iglesias LR predicting aberrant behaviors Diagnosis Discharge Problem: SBO (small bowel obstruction)
[2019-10-22 18:33] VITALS: BMI 35.2
[2019-10-22 18:54] LABS: BASOPHILS % (AUTO) 0.4 % (0.2-1.0); EOSINOPHILS # (AUTO) 0.1 x10^3/uL (0.0-0.2); HEMATOCRIT 44.6 % (42.0-54.0); HEMOGLOBIN 15.7 g/dL (13.5-18.0); LYMPHOCYTES # (AUTO) 1.2 X10^3/uL (1.3-2.9); LYMPHOCYTES % (AUTO) 10.4 % (21.0-51.0); MEAN CORPUSCULAR HEMOGLOBIN 30.3 pg (27.0-34.0); MEAN CORPUSCULAR HGB CONC 35.2 g/dL (33.0-35.0); MEAN CORPUSCULAR VOLUME 85.9 fL (80.0-100.0); MEAN PLATELET VOLUME 7.1 fL (7.4-11.0); MONOCYTES # (AUTO) 0.7 x10^3/uL (0.3-0.8); MONOCYTES % (AUTO) 6.2 % (0.0-13.0); NEUTROPHILS # (AUTO) 9.7 x10^3/uL (2.2-4.8); PLATELET COUNT 271 X10^3/uL (150.0-450.0); RED BLOOD COUNT 5.19 X10^6/uL (4.7-6.0); RED CELL DISTRIBUTION WIDTH 14.3 % (11.6-16.5); WHITE BLOOD COUNT 11.8 X10^3/uL (3.6-10.0)
[2019-10-22 19:06] LABS: ALANINE AMINOTRANSFERASE 32 Units/L (12-78); ALBUMIN 4.3 g/dL (3.4-5.0); ALKALINE PHOSPHATASE 76 Units/L (46-116); ASPARTATE AMINO TRANSFERASE 17 Units/L (15-37); BLOOD UREA NITROGEN 16 mg/dL (7-18); CALCIUM 9.2 mg/dL (8.5-10.1); CARBON DIOXIDE 27.7 mmol/L (21-32); CHLORIDE 103 mmol/L (98-107); COR NA(FOR HYPERGLY) 141 mmol/L (136-145); CREATININE 1.16 mg/dL (0.70-1.30); LIPASE 113 Units/L (73-393); SODIUM 140 mmol/L (136-145); TOTAL PROTEIN 7.3 g/dL (6.4-8.2); eGFR NON BLACK RACES > 60 (>60)
[2019-10-22] MEDS ORDERED: ZOFRAN INJ 4 MG VIAL IVP ONE (19:50)
[2019-10-22] MEDS ORDERED: DILAUDID INJ IVP ONE (19:50)
[2019-10-22] MEDS ORDERED: NS 1000 ML 1,000 ML IV ONE (19:50)
[2019-10-22] MEDS ORDERED: DILAUDID INJ ONE (20:54)
[2019-10-22] MEDS ORDERED: ZOFRAN INJ 4 MG VIAL ONE (20:54)
[2019-10-22] MEDS ORDERED: NS 1000 ML 1,000 ML ONE (20:55)
[2019-10-22] MEDS ORDERED: NS 100 ML IV 100 ML IV ONE (22:27)
[2019-10-22 23:22] LABS: BILIRUBIN,URINE NEGATIVE (NEGATIVE); BLOOD/HEMOGLOBIN,URINE NEGATIVE (NEGATIVE); GLUCOSE, URINE NEGATIVE (NEGATIVE); KETONES,URINE NEGATIVE (NEGATIVE); LEUKOCYTE ESTERASE ,URINE NEGATIVE (NEGATIVE); NITRITES,URINE NEGATIVE (NEGATIVE); PH,URINE 6.5 (5.0 - 8.0); PROTEIN,URINE 1+ (NEGATIVE); UROBILINOGEN,URINE NORMAL (NORMAL)
[2019-10-22 23:24] LABS: APPEARANCE,URINE CLEAR (CLEAR); BACTERIA,URINE NEGATIVE /HPF (NEGATIVE); COLOR,URINE YELLOW (YELLOW); RBC,URINE NONE SEEN /HPF (0-3); SQUAMOUS EPITHELIAL CELL,UR RARE /HPF (NEGATIVE)
--- NOTE | 2019-10-23 00:02 | CT ---
HISTORYhx, sboSTUDYABDOMEN/PELVIS WITH [id number]/23/2020TECHNIQUEMultiple axial images of the abdomen and pelvis were obtained from the lung bases to the pubic symphysis after the administration of IV contrast. Oral contrast was also administered. Dose reduction techniques including Automated Exposure Control (AEC) and adjustment of mA and kV were utilized.FINDINGSThe visualized portions of the lung bases are unremarkable . The liver, spleen, pancreas, kidneys, and adrenal glands are unremarkable in their CT appearance. Post cholecystectomy changes.. No significant mesenteric lymphadenopathy or stranding can be observed. No free fluid or free air is seen within the abdomen. The abdominal aorta is normal in caliber. Small sliding-type hiatal hernia. The stomach is moderately distended and filled with ingested material as well as oral contrast.. Proximal small bowel is normal in caliber. There are several loops of [id number] distended small bowel with air-fluid levels in the mid abdomen. Distal small bowel is normal in caliber. The colon is unremarkable. Specifically, there is no diverticulosis noted within the sigmoid colon. The urinary bladder is grossly unremarkable. The bony structures are grossly intact.IMPRESSIONSeveral loops of mild to moderately distended small bowel with air-fluid levels in the mid abdomen suggestive of early or partial obstruction.No free air or free fluid identified.Post cholecystectomy and post appendectomy changes.Electronically signed by: Lino Wilcox (Oct 23, 2019 00:01:55)
[2019-10-23] MEDS ORDERED: ZOFRAN INJ 4 MG VIAL ONE ×2 (00:53→06:37)
[2019-10-23] MEDS ORDERED: MORPHINE SULFATE INJ 2 MG INJ ONE ×2 (00:53→06:37)
[2019-10-23] MEDS ORDERED: NS 1000 ML 1,000 ML IV SCH (01:00)
[2019-10-23] MEDS: MORPHINE SULFATE INJ 2 MG INJ IVP PRN ×2 (01:00→06:34)
[2019-10-23] MEDS: ZOFRAN INJ 4 MG VIAL IVP PRN ×3 (01:02→19:57)
[2019-10-23] MEDS ORDERED: NS 1000 ML 1,000 ML ONE ×2 (01:03→07:46)
[2019-10-23] MEDS: NS 1000 ML 1,000 ML IV SCH ×5 (01:06→17:57)
[2019-10-23] MEDS ORDERED: POTASSIUM CHL 40 MEQ/NS 0.45% 500 ML IV PRN (15:02)
[2019-10-23] MEDS ORDERED: KLOR-CON PO PRN (15:02)
[2019-10-23] MEDS ORDERED: POTASSIUM CHLORIDE LIQ 20 MEQ UDC PO PRN (15:02)
[2019-10-23] MEDS ORDERED: POTASSIUM CHL 60 MEQ/NS 0.45% 500 ML IV PRN (15:02)
[2019-10-23] MEDS ORDERED: K-DUR TAB 20 MEQ PO PRN (15:02)
[2019-10-23] MEDS ORDERED: MICRO K EXTEN CAP 10 MEQ PO PRN (15:02)
[2019-10-23] MEDS: DILAUDID INJ IVP PRN ×2 (15:27→19:56)
[2019-10-23] MEDS: K-RIDER 10 MEQ/NS 100 ML 10 MEQ/100 ML BAG IV PRN ×3 (15:34→22:52)
[2019-10-24] MEDS: DILAUDID INJ IVP PRN ×5 (00:39→23:45)
[2019-10-24] MEDS: K-RIDER 10 MEQ/NS 100 ML 10 MEQ/100 ML BAG IV PRN ×5 (00:40→22:15)
[2019-10-24] MEDS: NS 1000 ML 1,000 ML IV SCH ×5 (01:17→22:13)
[2019-10-24] MEDS: MAGNESIUM SULFATE 1 GRAM/100 mL PREMIX 1 GM/100 ML BAG IV PRN ×2 (02:38→03:53)
[2019-10-24] MEDS: ZOFRAN INJ 4 MG VIAL IVP PRN ×3 (05:44→22:14)
[2019-10-24 06:35] LABS: BASOPHILS % (AUTO) 0.2 % (0.2-1.0); EOSINOPHILS # (AUTO) 0.2 x10^3/uL (0.0-0.2); EOSINOPHILS % (AUTO) 2.7 % (0.9-2.9); HEMATOCRIT 38.1 % (42.0-54.0); HEMOGLOBIN 13.4 g/dL (13.5-18.0); LYMPHOCYTES % (AUTO) 14.8 % (21.0-51.0); MEAN CORPUSCULAR HEMOGLOBIN 30.4 pg (27.0-34.0); MEAN CORPUSCULAR VOLUME 86.9 fL (80.0-100.0); MEAN PLATELET VOLUME 7.6 fL (7.4-11.0); MONOCYTES # (AUTO) 0.6 x10^3/uL (0.3-0.8); MONOCYTES % (AUTO) 9.2 % (0.0-13.0); NEUTROPHILS # (AUTO) 4.7 x10^3/uL (2.2-4.8); NEUTROPHILS % (AUTO) 73.1 % (42.0-75.0); PLATELET COUNT 214 X10^3/uL (150.0-450.0); RED BLOOD COUNT 4.39 X10^6/uL (4.7-6.0); WHITE BLOOD COUNT 6.4 X10^3/uL (3.6-10.0)
[2019-10-24 06:54] LABS: ALANINE AMINOTRANSFERASE 46 Units/L (12-78); ALBUMIN 3.3 g/dL (3.4-5.0); ALKALINE PHOSPHATASE 67 Units/L (46-116); ASPARTATE AMINO TRANSFERASE 32 Units/L (15-37); BLOOD UREA NITROGEN 11 mg/dL (7-18); CARBON DIOXIDE 27.8 mmol/L (21-32); CHLORIDE 103 mmol/L (98-107); COR CA(FOR HYPOALB) 8.6 mg/dL (8.5-10.1); CREATININE 0.82 mg/dL (0.70-1.30); SODIUM 137 mmol/L (136-145); TOTAL PROTEIN 6.1 g/dL (6.4-8.2); eGFR NON BLACK RACES > 60 (>60)
[2019-10-24] MEDS: BENADRYL INJ 50 MG VIAL IVP PRN ×2 (14:14→21:15)
[2019-10-25] MEDS: NS 1000 ML 1,000 ML IV SCH ×2 (02:17→11:03)
[2019-10-25] MEDS: DILAUDID INJ IVP PRN ×6 (03:07→23:25)
[2019-10-25] MEDS: ZOFRAN INJ 4 MG VIAL IVP PRN ×2 (05:19→17:08)
[2019-10-25] MEDS: BENADRYL INJ 50 MG VIAL IVP PRN ×3 (05:19→23:25)
[2019-10-25 06:30] LABS: BASOPHILS % (AUTO) 0.3 % (0.2-1.0); EOSINOPHILS # (AUTO) 0.2 x10^3/uL (0.0-0.2); EOSINOPHILS % (AUTO) 3.4 % (0.9-2.9); HEMATOCRIT 37.6 % (42.0-54.0); HEMOGLOBIN 13.1 g/dL (13.5-18.0); MEAN CORPUSCULAR HEMOGLOBIN 30.4 pg (27.0-34.0); MEAN CORPUSCULAR HGB CONC 34.9 g/dL (33.0-35.0); MEAN CORPUSCULAR VOLUME 87.1 fL (80.0-100.0); MEAN PLATELET VOLUME 7.4 fL (7.4-11.0); MONOCYTES # (AUTO) 0.6 x10^3/uL (0.3-0.8); NEUTROPHILS # (AUTO) 4.4 x10^3/uL (2.2-4.8); NEUTROPHILS % (AUTO) 70.3 % (42.0-75.0); PLATELET COUNT 213 X10^3/uL (150.0-450.0); RED BLOOD COUNT 4.32 X10^6/uL (4.7-6.0); WHITE BLOOD COUNT 6.3 X10^3/uL (3.6-10.0)
[2019-10-25 06:43] LABS: ALANINE AMINOTRANSFERASE 42 Units/L (12-78); ALBUMIN 3.4 g/dL (3.4-5.0); ALKALINE PHOSPHATASE 68 Units/L (46-116); ASPARTATE AMINO TRANSFERASE 22 Units/L (15-37); BLOOD UREA NITROGEN 11 mg/dL (7-18); CALCIUM 8.4 mg/dL (8.5-10.1); CARBON DIOXIDE 29.9 mmol/L (21-32); CHLORIDE 103 mmol/L (98-107); SODIUM 138 mmol/L (136-145); TOTAL PROTEIN 6.3 g/dL (6.4-8.2); eGFR NON BLACK RACES > 60 (>60)
[2019-10-25] MEDS ORDERED: PHENERGAN INJ 25 MG IM PRN (08:15)
[2019-10-25] MEDS ORDERED: ZITHROMAX INJ 500 MG VIAL 500 MG in NS 250 ML IV 250 ML IV NR (09:00)
--- NOTE | 2019-10-25 10:38 | RAD ---
HISTORYSBO HTN, GB, APPENDIX, BOWEL RESECTIONSTUDYKUBCOMPARISONAbdominal film March 10, [address] scan October 22, 2019 which showed mildly dilated small bowel loops in the lower abdomen upper pelvis..FINDINGSEvaluation of the abdomen demonstrates a normal bowel gas pattern. There is no small-bowel distention. All the contrast that was in the stomach on yesterday's CT is now in the colon. Surgical clips are noted from prior cholecystectomy. No pathological soft tissue mass or calcification can be observed. The bony structures are grossly intact.IMPRESSIONNo evidence for acute abdominal pathology identified. No evidence of small bowel distension or obstruction with all the oral contrast now in the colon.Electronically signed by: BETH MIRZA (Oct 25, 2019 10:37:52)
[2019-10-25] MEDS: PROTONIX INJ 40 MG VIAL IVP SCH ×2 (11:01→20:10)
[2019-10-25] MEDS ORDERED: NS 1000 ML 1,000 ML IV SCH (15:10)
[2019-10-25] MEDS: LOVENOX INJ 40 MG SYR SC SCH (16:26)
[2019-10-25] MEDS: D5 1/2 NS 1000 ML 1,000 ML IV SCH ×2 (16:26→21:29)
[2019-10-26] MEDS: D5 1/2 NS 1000 ML 1,000 ML IV SCH ×5 (00:10→19:43)
[2019-10-26] MEDS: ZOFRAN INJ 4 MG VIAL IVP PRN ×2 (03:35→13:51)
[2019-10-26] MEDS: DILAUDID INJ IVP PRN ×5 (03:35→21:54)
--- NOTE | 2019-10-26 06:06 | RAD ---
HISTORYABD PAIN HTN, GB, APPENDIX, BOWEL [id number]/14/2020FINDINGSEvaluation of the abdomen demonstrates a normal bowel ga s pattern. No dilated loops of small bowel. There is contrast present throughout the colon. Surgical clips in the right upper quadrant. No pathological soft tissue mass or calcification can be observed. The bony structures are grossly intact.IMPRESSIONNo evidence for acute abdominal pathology identifi ed.Electronically signed by: Lino Wilcox (Oct 26, 2019 06:06:23)
[2019-10-26 06:16] LABS: BASOPHILS % (AUTO) 0.3 % (0.2-1.0); EOSINOPHILS # (AUTO) 0.2 x10^3/uL (0.0-0.2); EOSINOPHILS % (AUTO) 3.5 % (0.9-2.9); HEMATOCRIT 36.8 % (42.0-54.0); LYMPHOCYTES % (AUTO) 15.1 % (21.0-51.0); MEAN CORPUSCULAR HEMOGLOBIN 30.7 pg (27.0-34.0); MEAN CORPUSCULAR HGB CONC 35.4 g/dL (33.0-35.0); MEAN CORPUSCULAR VOLUME 86.9 fL (80.0-100.0); MEAN PLATELET VOLUME 7.3 fL (7.4-11.0); MONOCYTES # (AUTO) 0.7 x10^3/uL (0.3-0.8); MONOCYTES % (AUTO) 10.9 % (0.0-13.0); NEUTROPHILS # (AUTO) 4.7 x10^3/uL (2.2-4.8); NEUTROPHILS % (AUTO) 70.2 % (42.0-75.0); PLATELET COUNT 208 X10^3/uL (150.0-450.0); RED BLOOD COUNT 4.24 X10^6/uL (4.7-6.0); RED CELL DISTRIBUTION WIDTH 13.8 % (11.6-16.5); WHITE BLOOD COUNT 6.7 X10^3/uL (3.6-10.0)
[2019-10-26 06:37] LABS: ALANINE AMINOTRANSFERASE 40 Units/L (12-78); ALBUMIN 3.3 g/dL (3.4-5.0); ALKALINE PHOSPHATASE 65 Units/L (46-116); ASPARTATE AMINO TRANSFERASE 24 Units/L (15-37); BLOOD UREA NITROGEN 10 mg/dL (7-18); CALCIUM 8.3 mg/dL (8.5-10.1); CARBON DIOXIDE 31.3 mmol/L (21-32); CHLORIDE 102 mmol/L (98-107); COR CA(FOR HYPOALB) 8.9 mg/dL (8.5-10.1); COR NA(FOR HYPERGLY) 137 mmol/L (136-145); CREATININE 0.88 mg/dL (0.70-1.30); SODIUM 137 mmol/L (136-145); TOTAL PROTEIN 6.3 g/dL (6.4-8.2); eGFR NON BLACK RACES > 60 (>60)
[2019-10-26] MEDS: BENADRYL INJ 50 MG VIAL IVP PRN ×2 (08:11→17:45)
[2019-10-26] MEDS: PROTONIX INJ 40 MG VIAL IVP SCH ×2 (08:20→21:40)
[2019-10-26] MEDS: K-RIDER 10 MEQ/NS 100 ML 10 MEQ/100 ML BAG IV PRN ×2 (08:25→11:00)
[2019-10-26] MEDS: LOVENOX INJ 40 MG SYR SC SCH (08:57)
[2019-10-26] MEDS ORDERED: FLEET ENEMA ADULT PR ONE (09:53)
--- NOTE | 2019-10-26 10:33 | DR.PROGNOT ---
Hospital Progress Notes - Progress Note for Day of: Progress Note Date: 10/26/19 - Chief Complaint Chief Complaint: still c/o abdominal pain and distention . no vomiting today . passing flatus , no BM yet . Mg is low 2.2. abdominal xray is normal now .. afebrile - Past Medical Family Social History Past Med/Fam/Surg Hx: No changes since H&P Allergies: Allergies No Known Drug Allergies [NKDA] Allergy (Verified 10/22/19 18:33) - Review Of Systems ROS: No change since H&P - Vital Signs Vital Signs: Temperature 98.6 F Pulse Rate [Right Radial] 97 Pulse Rate 92 Respiratory Rate 22 Blood Pressure [Right Arm] 132/78 Blood Pressure [Left Arm] 124/77 Blood Pressure 137/94 O2 Sat by Pulse Oximetry 95 - Physical Exam Oriented: Normal Eyes: Normal Ear: Normal Nose: Normal Throat: Normal Respiratory: Normal Cardiovascular: Normal : Normal GI:Auscultation: Normal GI: Tenderness: Diffuse (moderate distention . BS + with epigastric tenderness.) Speech Pattern: Clear, Appropriate - Laboratory and Diagnostics Result Diagrams: 10/26/19 05:10 10/26/19 05:10 Labs: Laboratory WBC 6.7 X10^3/uL (3.6-10.0) 10/26/19 05:10 RBC 4.24 X10^6/uL (4.7-6.0) L 10/26/19 05:10 Hgb 13.0 g/dL (13.5-18.0) L 10/26/19 05:10 Hct 36.8 % (42.0-54.0) L 10/26/19 05:10 MCV 86.9 fL (80.0-100.0) 10/26/19 05:10 MCH 30.7 pg (27.0-34.0) 10/26/19 05:10 MCHC 35.4 g/dL (33.0-35.0) H 10/26/19 05:10 RDW 13.8 % (11.6-16.5) 10/26/19 05:10 Plt Count 208 X10^3/uL (150.0-450.0) 10/26/19 05:10 MPV 7.3 fL (7.4-11.0) L 10/26/19 05:10 Neut % (Auto) 70.2 % (42.0-75.0) 10/26/19 05:10 Lymph % (Auto) 15.1 % (21.0-51.0) L 10/26/19 05:10 [place] % (Auto) 10.9 % (0.0-13.0) 10/26/19 05:10 Eos % (Auto) 3.5 % (0.9-2.9) H 10/26/19 05:10 Baso % (Auto) 0.3 % (0.2-1.0) 10/26/19 05:10 Neut # (Auto) 4.7 x10^3/uL (2.2-4.8) 10/26/19 05:10 Lymph # (Auto) 1.0 X10^3/uL (1.3-2.9) L 10/26/19 05:10 [place] # (Auto) 0.7 x10^3/uL (0.3-0.8) 10/26/19 05:10 Eos # (Auto) 0.2 x10^3/uL (0.0-0.2) 10/26/19 05:10 Baso # (Auto) 0.0 X10^3/uL (0.0-0.1) 10/26/19 05:10 Absolute Nucleated RBC 0.1 /100WBC 10/26/19 05:10 Sodium 137 mmol/L (136-145) 10/26/19 05:10 Corrected Sodium 137 mmol/L (136-145) 10/26/19 05:10 Potassium 3.6 mmol/L (3.5-5.1) 10/26/19 05:10 Chloride 102 mmol/L (98-107) 10/26/19 05:10 Carbon Dioxide 31.3 mmol/L (21-32) 10/26/19 05:10 BUN 10 mg/dL (7-18) 10/26/19 05:10 Creatinine 0.88 mg/dL (0.70-1.30) 10/26/19 05:10 Est GFR (MDRD) Af Amer > 60 (>60) 10/26/19 05:10 Est GFR (MDRD) Non-Af > 60 (>60) 10/26/19 05:10 Glucose 113 mg/dL (65-99) H 10/26/19 05:10 Calcium 8.3 mg/dL (8.5-10.1) L 10/26/19 05:10 Corrected Calcium 8.9 mg/dL (8.5-10.1) 10/26/19 05:10 Magnesium 2.2 mg/dL (1.7-2.9) 10/26/19 05:10 Total Bilirubin 1.30 mg/dL (0.2-1.0) H 10/26/19 05:10 AST 24 Units/L (15-37) 10/26/19 05:10 ALT 40 Units/L (12-78) 10/26/19 05:10 Alkaline Phosphatase 65 Units/L (46-116) 10/26/19 05:10 Total Protein 6.3 g/dL (6.4-8.2) L 10/26/19 05:10 Albumin 3.3 g/dL (3.4-5.0) L 10/26/19 05:10 Globulin 3.0 g/dL (2.5-4.5) 10/26/19 05:10 Albumin/Globulin Ratio 1.1 Ratio (1.1-2.1) 10/26/19 05:10 Lipase 113 Units/L (73-393) 10/22/19 18:49 Specimen Type Clean catch urine 10/22/19 23:05 Urine Color Yellow (YELLOW) 10/22/19 23:05 Urine Appearance Clear (CLEAR) 10/22/19 23:05 Urine pH 6.5 (5.0 - 8.0) 10/22/19 23:05 Ur Specific [place] 1.010 (1.000-1.030) 10/22/19 23:05 Urine Protein 1+ (NEGATIVE) 10/22/19 23:05 Urine Glucose (UA) Negative (NEGATIVE) 10/22/19 23:05 Urine Ketones Negative (NEGATIVE) 10/22/19 23:05 Urine Occult Blood Negative (NEGATIVE) 10/22/19 23:05 Urine Nitrite Negative (NEGATIVE) 10/22/19 23:05 Urine Bilirubin Negative (NEGATIVE) 10/22/19 23:05 Urine Urobilinogen Normal (NORMAL) 10/22/19 23:05 Ur Leukocyte Esterase Negative (NEGATIVE) 10/22/19 23:05 Urine RBC None seen /HPF (0-3) 10/22/19 23:05 Urine WBC None seen /HPF (0-5) 10/22/19 23:05 Ur Squamous Epith Cells Rare /HPF (NEGATIVE) 10/22/19 23:05 Urine Bacteria Negative /HPF (NEGATIVE) 10/22/19 23:05 Ur Culture Indicated? No/not indicated 10/22/19 23:05 - Assessment and Plan 1: resolving partial SBO . constipation . to advance diet . fleet enema. - Problem Patient Problems: Patient Problems SBO (small bowel obstruction) (Acute) K59.018
[2019-10-27] MEDS: BENADRYL INJ 50 MG VIAL IVP PRN (02:32)
[2019-10-27] MEDS: DILAUDID INJ IVP PRN ×3 (02:32→12:23)
[2019-10-27] MEDS: D5 1/2 NS 1000 ML 1,000 ML IV SCH ×2 (02:32→10:46)
[2019-10-27 06:07] LABS: BASOPHILS % (AUTO) 0.3 % (0.2-1.0); EOSINOPHILS # (AUTO) 0.2 x10^3/uL (0.0-0.2); HEMATOCRIT 36.6 % (42.0-54.0); HEMOGLOBIN 12.9 g/dL (13.5-18.0); LYMPHOCYTES % (AUTO) 19.7 % (21.0-51.0); MEAN CORPUSCULAR HEMOGLOBIN 30.5 pg (27.0-34.0); MEAN CORPUSCULAR HGB CONC 35.3 g/dL (33.0-35.0); MEAN CORPUSCULAR VOLUME 86.5 fL (80.0-100.0); MEAN PLATELET VOLUME 7.4 fL (7.4-11.0); MONOCYTES # (AUTO) 0.6 x10^3/uL (0.3-0.8); MONOCYTES % (AUTO) 11.9 % (0.0-13.0); NEUTROPHILS # (AUTO) 3.1 x10^3/uL (2.2-4.8); NEUTROPHILS % (AUTO) 63.1 % (42.0-75.0); PLATELET COUNT 210 X10^3/uL (150.0-450.0); RED BLOOD COUNT 4.23 X10^6/uL (4.7-6.0); RED CELL DISTRIBUTION WIDTH 13.8 % (11.6-16.5); WHITE BLOOD COUNT 4.9 X10^3/uL (3.6-10.0)
[2019-10-27 06:20] LABS: ALANINE AMINOTRANSFERASE 41 Units/L (12-78); ALBUMIN 3.2 g/dL (3.4-5.0); ALKALINE PHOSPHATASE 65 Units/L (46-116); ASPARTATE AMINO TRANSFERASE 25 Units/L (15-37); BLOOD UREA NITROGEN 6 mg/dL (7-18); CALCIUM 8.7 mg/dL (8.5-10.1); CARBON DIOXIDE 32.1 mmol/L (21-32); CHLORIDE 103 mmol/L (98-107); COR CA(FOR HYPOALB) 9.3 mg/dL (8.5-10.1); COR NA(FOR HYPERGLY) 140 mmol/L (136-145); CREATININE 0.91 mg/dL (0.70-1.30); SODIUM 139 mmol/L (136-145); TOTAL PROTEIN 6.2 g/dL (6.4-8.2); eGFR NON BLACK RACES > 60 (>60)
[2019-10-27] MEDS: PROTONIX INJ 40 MG VIAL IVP SCH (08:35)
[2019-10-27] MEDS: LOVENOX INJ 40 MG SYR SC SCH (08:35)
[2019-10-27] MEDS: ZOFRAN INJ 4 MG VIAL IVP PRN (09:09)
[2019-10-27 13:23] VITALS: BP 122/80
== END 2019-10-27 14:20 | disposition home or self-care (01) | DRG 390 ==
LOC: ER 18:26 → OBS 10-23 00:10 → MED/SURG 10-23 13:41
PROVIDERS: ADMIT Obstetrics & Gynecology Obstetrics; ATTEND Internal Medicine

== ENCOUNTER 2020-04-03 10:46 | Inpatient (IN) ==
[2020-04-03 10:54] VITALS: BMI 34.9
[2020-04-03] MEDS ORDERED: ZOFRAN INJ 4 MG VIAL IVP ONE (11:48)
[2020-04-03] MEDS ORDERED: NS 1000 ML 1,000 ML IV ONE (11:48)
[2020-04-03] MEDS ORDERED: DILAUDID INJ IVP STA (11:48)
--- NOTE | 2020-04-03 11:48 | DR.ABDMALE ---
HPI Time seen Time Seen by Provider: 04/03/20 11:44 PCP Primary Care Physician: Ave Stoll HPI comment HPI Comment: PATIENT WITH A HISTORY OF APPENDECTOMY, CHOLECYSTECTOMY, EXPLORATORY LAPAROTOMY FOR LYSIS OF ADHESIONS FEB 2019, NOW COMPLAINS OF CONS TIPATION X 3 DAYS, ONSET OF GENERALIZED ABDOMINAL PAIN X 2 DAYS ASSOCIATED WITH EMESIS X 4, HAS PAIN SCALE 10/10. DENIES DIARRHEA, URINARY SYMPTOMS OR FEVER. Complaint Chief Complaint Doctors Comments: GENERALIZED ABDOMINAL PAIN ASSOCIATED WITH EMESIS X 2 DAYS Chief Complaint:: Pt c/o abd with n/v since yesterday. He states he has scar tissue around his small intestine. He reports last normal bm 3 days ago. COVID-19 Coronavirus risk:travel/contact w/high risk person: No Has patient experienced Coronavirus symptoms: No Reviewed Nurses Notes Review: Yes Source History provided by:: PATIENT Mode of arrival Mode of Arrival: Ambulatory Timing Onset of Chief Complaint: 04/02/20 Duration How lon Duration: Days Location Location: Diffuse Severity Severity: Severe Quality Quality: Sharp and Stabbing Context Onset: Suddenly History of: Abdominal surgery Modifying factors Worsening Factors: Movement Associated signs and symptoms Associated Signs and Symptoms: Nausea and Vomiting Other history Other History: ABDOMINAL SURGERY LYSIS OF ADHESIONS FEB 2019 PMH PMH Past Medical History: Yes Past Medical History: Arthritis, GERD and Hypertension Past Surgical History: Yes Surgical History: Appendectomy, Bowel Resection, Cholecystectomy, Ortho Surgery and Other Family History History of Family Medical Conditions: Yes Family Medical History: Cancer, [place] and Hypertension Social History Does patient currently use any type of tobacco product: No Have you used tobacco products in the last 12 months: No Type of Tobacco Use: None Does any household member use tobacco: No Alcohol Use: None Do you use any recreational Drugs:: No Lives With: Family Lives Where: Home Travel Risk Coronavirus risk:travel/contact w/high risk person: No Has patient experienced Coronavirus symptoms: No Infectious screening In the last 2 months have you had wt loss of >10#?: NO Have you had fever, night sweats or hemotysis?: No Have you traveled outside the country in the last 6 months?: No Isolation: Standard ROS Review of Systems Constitutional: No Symptoms Reported Eyes: No Symptoms Reported ENTM: No Symptoms Reported Respiratoy: No Symptoms Reported Cardiovascular: No Symptoms Reported Gastrointestinal/Abdominal: See HPI, Abdominal Pain, Nausea and Vomiting Genitourinary: No Symptoms Reported Neurological: No Symptoms Reported Musculoskeletal: No Symptoms Reported Integumentary: No Symptoms Reported Hematologic/Lymphatic: No Symptoms Reported Endocrine: No Symptoms Reported Psychiatric: No Symptoms Reported All Other Systems: Reviewed and Negative PE Vital Signs Vital Signs: Temp Pulse Resp BP BP Pulse Ox 04/03/20 14:30 71 117/79 93 L 04/03/20 14:15 67 91 L 04/03/20 14:00 70 122/88 93 L 04/03/20 13:45 75 04/03/20 13:30 65 119/77 04/03/20 13:15 78 99 04/03/20 13:00 72 123/74 96 04/03/20 12:45 80 04/03/20 12:36 70 121/75 93 L 04/03/20 12:05 20 04/03/20 10:50 97.1 F L 92 H 18 135/94 96 10/27/19 12:00 122/80 General Limitations: No Limitations General Appearance: Alert and In No Apparent Distress Head Head Exam: Normal Inspection and Atraumatic Eyes Eye exam: Normal Appearance, PERRL and EOMI ENT ENT Exam: Normal Exam and Normal Oropharynx Neck Neck Exam: Normal Inspection and Full ROM Chest Chest Inspection: Normal Inspection and Symmetric Chest Wall Rise Respiratory Respiratory Exam: Normal Lung Sounds Bilat Respiratory Exam: Bilateral: Clear to Auscultation Cardiovascular Cardiovascular Exam: Regular Rate and Normal Rhythm Abdominal Exam Abdominal Exam: Normal Inspection, Normal Bowel Sounds, Distention (MODERATE), Tenderness (PERIUMBILICAL TENDERNESS) and Hyperactive Bowel Sounds Rectal Rectal Exam: Deferred Back Back Exam: Normal Inspection and Full ROM Extremeties Extremities Exam: Normal Inspection Exam: Male: Deferred Neurologic Neurological Exam: Alert and Oriented X3 Psychiatric Psychiatric Exam: Normal Affect and Normal Mood Skin Skin Exam: Warm, Dry, Intact and Normal Color MDM Differential Diagnosis Differential Diagnosis: Diverticular disease, Gastroenteritis, Inflammatory BD, Pancreatitis and Urolithiasis Other differential diagnosis: SMALL BOWEL OBSTRUCTION COURSE Treatment Treatment: IV NORMAL SALINE 500ML/HR, ZOFRAN 4MG, DILAUDID 2MG IV, PATIENT REFUSES NASO-GASTRIC TUBE Reevaluation 1st: Improved Consultation Consultation Comments: DISCUSSED WITH DR DEAL AT 1335 FOR ADMIT, DR SHIN SURGERY CONSULT AT 1345 ROR Labs Reviewed Laboratory Results Reviewed?: Yes Result Diagrams: 04/03/20 12:00 04/03/20 12:00 Laboratory: WBC 10.6 X10^3/uL (3.6-10.0) H 04/03/20 12:00 RBC 5.23 X10^6/uL (4.7-6.0) 04/03/20 12:00 Hgb 15.8 g/dL (13.5-18.0) 04/03/20 12:00 Hct 45.5 % (42.0-54.0) 04/03/20 12:00 MCV 86.9 fL (80.0-100.0) 04/03/20 12:00 MCH 30.2 pg (27.0-34.0) 04/03/20 12:00 MCHC 34.8 g/dL (33.0-35.0) 04/03/20 12:00 RDW 13.4 % (11.6-16.5) 04/03/20 12:00 Plt Count 267 X10^3/uL (150.0-450.0) 04/03/20 12:00 MPV 8.1 fL (7.4-11.0) 04/03/20 12:00 Neut % (Auto) 83.8 % (42.0-75.0) H 04/03/20 12:00 Lymph % (Auto) 8.6 % (21.0-51.0) L 04/03/20 12:00 [place] % (Auto) 7.0 % (0.0-13.0) 04/03/20 12:00 Eos % (Auto) 0.2 % (0.9-2.9) L 04/03/20 12:00 Baso % (Auto) 0.4 % (0.2-1.0) 04/03/20 12:00 Neut # (Auto) 8.9 x10^3/uL (2.2-4.8) H 04/03/20 12:00 Lymph # (Auto) 0.9 X10^3/uL (1.3-2.9) L 04/03/20 12:00 [place] # (Auto) 0.7 x10^3/uL (0.3-0.8) 04/03/20 12:00 Eos # (Auto) 0.0 x10^3/uL (0.0-0.2) 04/03/20 12:00 Baso # (Auto) 0.0 X10^3/uL (0.0-0.1) 04/03/20 12:00 Absolute Nucleated RBC 0.1 /100WBC 04/03/20 12:00 Sodium 140 mmol/L (136-145) 04/03/20 12:00 Corrected Sodium 141 mmol/L (136-145) 04/03/20 12:00 Potassium 3.0 mmol/L (3.5-5.1) L* 04/03/20 12:00 Chloride 104 mmol/L (98-107) 04/03/20 12:00 Carbon Dioxide 26.7 mmol/L (21-32) 04/03/20 12:00 BUN 16 mg/dL (7-18) 04/03/20 12:00 Creatinine 1.05 mg/dL (0.70-1.30) 04/03/20 12:00 Est GFR (MDRD) Af Amer > 60 (>60) 04/03/20 12:00 Est GFR (MDRD) Non-Af > 60 (>60) 04/03/20 12:00 Glucose 127 mg/dL (65-99) H 04/03/20 12:00 Calcium 9.6 mg/dL (8.5-10.1) 04/03/20 12:00 Corrected Calcium TNP 04/03/20 12:00 Total Bilirubin 1.60 mg/dL (0.2-1.0) H 04/03/20 12:00 AST 26 Units/L (15-37) 04/03/20 12:00 ALT 31 Units/L (12-78) 04/03/20 12:00 Alkaline Phosphatase 58 Units/L (46-116) 04/03/20 12:00 Total Protein 7.1 g/dL (6.4-8.2) 04/03/20 12:00 Albumin 4.0 g/dL (3.4-5.0) 04/03/20 12:00 Globulin 3.1 g/dL (2.5-4.5) 04/03/20 12:00 Albumin/Globulin Ratio 1.3 Ratio (1.1-2.1) 04/03/20 12:00 Amylase 16 Units/L (25-115) L 04/03/20 12:00 Lipase 59 Units/L (73-393) L 04/03/20 12:00 SARS CoV-2 RNA Rapid EMETERIO Negative (NEGATIVE) 04/03/20 13:38 XRAY XRAY Interpreted by: Radiologist (THE ABDOMINAL PELVIC CT SCAN WITH INTRAVENOUS CONTRAST CONSISTENT WITH SMALL-BOWEL OBSTRUCTION WITH DILATED LOOPS OF JEJUNUM WITH AIR FLUID LEVELS.) Opioid Opioid Risk Tool Age (Jun box if 16-45): No History of Preadolescent Sexual Abuse: No Total: 0 Total Score Risk Category: Low Risk Copyright: Harris DOWNEY predicting aberrant behaviors Diagnosis Discharge Problem: Complete small bowel obstruction Instructions Forms: Social Distancing
[2020-04-03] MEDS ORDERED: ZOFRAN INJ 4 MG VIAL ONE (11:53)
[2020-04-03] MEDS ORDERED: DILAUDID INJ ONE (11:53)
[2020-04-03] MEDS ORDERED: NS 1000 ML 1,000 ML ONE (11:53)
[2020-04-03] MEDS ORDERED: NS 100 ML IV 100 ML IV ONE (12:05)
[2020-04-03 12:24] LABS: BASOPHILS % (AUTO) 0.4 % (0.2-1.0); EOSINOPHILS % (AUTO) 0.2 % (0.9-2.9); HEMATOCRIT 45.5 % (42.0-54.0); HEMOGLOBIN 15.8 g/dL (13.5-18.0); LYMPHOCYTES # (AUTO) 0.9 X10^3/uL (1.3-2.9); LYMPHOCYTES % (AUTO) 8.6 % (21.0-51.0); MEAN CORPUSCULAR HEMOGLOBIN 30.2 pg (27.0-34.0); MEAN CORPUSCULAR HGB CONC 34.8 g/dL (33.0-35.0); MEAN CORPUSCULAR VOLUME 86.9 fL (80.0-100.0); MEAN PLATELET VOLUME 8.1 fL (7.4-11.0); MONOCYTES # (AUTO) 0.7 x10^3/uL (0.3-0.8); NEUTROPHILS # (AUTO) 8.9 x10^3/uL (2.2-4.8); NEUTROPHILS % (AUTO) 83.8 % (42.0-75.0); PLATELET COUNT 267 X10^3/uL (150.0-450.0); RED BLOOD COUNT 5.23 X10^6/uL (4.7-6.0); RED CELL DISTRIBUTION WIDTH 13.4 % (11.6-16.5); WHITE BLOOD COUNT 10.6 X10^3/uL (3.6-10.0)
[2020-04-03 12:28] LABS: BLOOD UREA NITROGEN 16 mg/dL (7-18); CALCIUM 9.6 mg/dL (8.5-10.1); CARBON DIOXIDE 26.7 mmol/L (21-32); CHLORIDE 104 mmol/L (98-107); COR NA(FOR HYPERGLY) 141 mmol/L (136-145); CREATININE 1.05 mg/dL (0.70-1.30); SODIUM 140 mmol/L (136-145); eGFR NON BLACK RACES > 60 (>60)
[2020-04-03 12:33] LABS: ALANINE AMINOTRANSFERASE 31 Units/L (12-78); ALKALINE PHOSPHATASE 58 Units/L (46-116); AMYLASE 16 Units/L (25-115); ASPARTATE AMINO TRANSFERASE 26 Units/L (15-37); LIPASE 59 Units/L (73-393); TOTAL PROTEIN 7.1 g/dL (6.4-8.2)
--- NOTE | 2020-04-03 12:43 | CT ---
HISTORYABDOMINAL PAIN, N/VSTUDYABDOMEN/PELVIS WITH CONCOMPARISONCT abdomen and pelvis from 10/22/2019.TECHNIQUEMultiple axial images of the abdomen and pelvis were obtained from the lung bases to the pubic symphysis after the administration of IV contrast. Dose reduction techniques including Automated Exposure Control (AEC) and adjustment of mA and kV were utilized.FINDINGSLung bases demonstrate mild scattered subsegmental atelectasis. The heart is normal in size. Post cholecystectomy. Post cholecystectomy ductal ectasia. The spleen, pancreas, and adrenal glands have a benign appearance. Contrast excretion into the renal collecting system limits evaluation for calculus detection. Subcentimeter left anterior midpole renal lesion is likely a cyst. No hydronephrosis. Urinary bladder appears benign. Prostate is normal in size. Trace free fluid in the pelvis. Diverticulosis of the colon without evidence of diverticulitis. Post appendectomy. Dilated loops of jejunum in the left xavi abdomen with air-fluid levels. For example on image 45 series 5 jejunum measures up to 3.7 cm AP in the left xavi abdomen. There is mild jejunal wall thickening and surrounding vascular engorgement. Swirl of vessels extending to these loops of jejunum with decompressed proximal and distal bowel. For transition point see image 61 series 5. No pneumatosis or portal venous gas. Mildly atherosclerotic normal caliber abdominal aorta. No free air or collection. No pathologic adenopathy. Incisional change in the anterior body wall. Leftward curvature of the lumbar spine apex L2. Transitional L5 vertebra with pseudoarticulation of the left transverse process with the left sacral ala.IMPRESSIONSmall-bowel obstruction with dilated loops of jejunum with air-fluid levels. Decompressed proximal and distal small bowel suspicious for closed loop type of obstruction.Electronically signed by: Aden Villafuerte (Apr 03, 2020 12:41:49)
[2020-04-03] MEDS ORDERED: K-RIDER 10 MEQ/NS 100 ML 10 MEQ/100 ML BAG IV STA (12:54)
[2020-04-03] MEDS ORDERED: K-RIDER 10 MEQ/NS 100 ML 10 MEQ/100 ML BAG IV ONE (13:20)
[2020-04-03] MEDS: NS 1000 ML 1,000 ML IV SCH ×2 (15:51→23:23)
[2020-04-03] MEDS: PROTONIX INJ 40 MG VIAL IVP SCH (15:51)
[2020-04-03] MEDS: DILAUDID INJ IVP PRN ×2 (16:20→20:22)
[2020-04-03 17:03] LABS: BILIRUBIN,URINE NEGATIVE (NEGATIVE); BLOOD/HEMOGLOBIN,URINE NEGATIVE (NEGATIVE); GLUCOSE, URINE NEGATIVE (NEGATIVE); KETONES,URINE NEGATIVE (NEGATIVE); LEUKOCYTE ESTERASE ,URINE NEGATIVE (NEGATIVE); NITRITES,URINE NEGATIVE (NEGATIVE); PROTEIN,URINE 2+ (NEGATIVE); UROBILINOGEN,URINE NORMAL (NORMAL)
[2020-04-03] MEDS ORDERED: K-DUR TAB 20 MEQ PO PRN (17:04)
[2020-04-03] MEDS ORDERED: POTASSIUM CHL 40 MEQ/NS 0.45% 500 ML IV PRN (17:04)
[2020-04-03] MEDS ORDERED: KLOR-CON PO PRN (17:04)
[2020-04-03] MEDS ORDERED: MICRO K EXTEN CAP 10 MEQ PO PRN (17:04)
[2020-04-03] MEDS ORDERED: POTASSIUM CHL 60 MEQ/NS 0.45% 500 ML IV PRN (17:04)
[2020-04-03] MEDS ORDERED: POTASSIUM CHLORIDE LIQ 20 MEQ UDC PO PRN (17:04)
--- NOTE | 2020-04-03 17:13 | DR.H&P ---
H&P - History & Physical for Day of: H&P Date: 04/03/20 - Chief Complaint Chief Complaint: "obstruction" - History of Present Illness History of Present Illness: his is a 50-year-old male who is well known to us from before with recurrent episodes of partial small bowel obstruction and required admission to the hospital on several occasions. The patient claims that he started to have acute onset of abdominal pain which was more localized to the epigastrium and left side of the abdomen which is unusual. He used to have pain more towards the right side. He was complaining of a bloating feeling and persistent nausea and vomiting. He claims that he has vomited more than 14 times and had no bowel movement today or yesterday. Even prior to that, he was somewhat constipated. As mentioned above, the patient is known to have these episodes of partial small bowel obstruction. He had a previous laparotomy, lysis of adhesions, and appendectomy. He had a cholecystectomy. Upper and lower endoscopies were performed. These showed colon polyps which were benign. The rest of the systemic review is documented in the patients chart. Positive for recurrent episodes of partial small bowel obstruction, abdominal adhesions, gastroesophageal reflux disease, arthritis, and Hypertension. - Past Medical History Past Medical History: Hypertension, GERD, Arthritis Additional Medical History: SBO - Past Surgical History Surgical History: Appendectomy, Bowel Resection, Cholecystectomy, Ortho Surgery, Other Additional Surgical History: Lysis of adhesions for SBO. - Family History Family Medical History: Cancer, [place], Hypertension - Social History Does patient currently use any type of tobacco product: No Have you used tobacco products in the last 12 months: No Type of Tobacco Use: None Does any household member use tobacco: No Alcohol Use: None Prescription drug monitoring program results: PDMP reviewed and no concerns identified - Medications Home Medications: No Known Drug Allergies [NKDA] Allergy (Verified 10/22/19 18:33) - Review of Systems Constitutional: Weakness Eyes: No Symptoms Reported ENT: No Symptoms Reported Respiratory: No Symptoms Reported Cardiovascular: No Symptoms Reported Gastrointestinal: Nausea, Vomiting, Abdominal Pain, Constipation Genitourinary: No Symptoms Reported Musculoskeletal: Back Pain Skin: No Symptoms Reported Neurological: No Symptoms Reported - Physical Exam Vital Signs: Temperature 98.4 F Pulse Rate [Left Radial] 75 Pulse Rate 73 Respiratory Rate 20 Blood Pressure [Right Arm] 130/84 Blood Pressure 125/83 O2 Sat by Pulse Oximetry 98 Oriented: Normal Eyes: Normal Ear: Normal Nose: Normal Throat: Normal Respiratory: Clear Throughout Cardiovascular: Normal : Normal Auscultation: Bowel Sounds: Normal Palpation: Normal Tenderness: Diffuse Skin: Decreased Turgur Musculoskeletal: Back:Thoracic, Back:Lumbar Psychiatric: Anxiety Affect: Anxious Speech Pattern: Clear, Appropriate - Assessment/Plan (1) SBO (small bowel obstruction) Status: Acute Plan: NPO, SURGICAL CONSULT. CT ABD PELVIS ORDERED ON ADMISSION. PAIN AND NAUSEA CONTROL, VERIFY HOME MEDICATION. BP MONITORING (2) Hypertension Status: Chronic (3) GERD (gastroesophageal reflux disease) Status: Chronic (4) Lumbar and sacral spondyloarthritis Status: Chronic - Allergies Allergies/Adverse Reactions: Allergies Allergy/AdvReac Type Severity Reaction Status Date / Time No Known Drug Allergies Allergy Verified 10/22/19 18:33 [NKDA]
[2020-04-03 17:17] LABS: APPEARANCE,URINE CLEAR (CLEAR); COLOR,URINE YELLOW (YELLOW)
[2020-04-03 17:18] LABS: RBC,URINE 0-2 /HPF (0-3); SQUAMOUS EPITHELIAL CELL,UR RARE /HPF (NEGATIVE)
[2020-04-03 17:19] LABS: AMORPHOUS SEDIMENT,UR TRACE /HPF (NEGATIVE); BACTERIA,URINE NEGATIVE /HPF (NEGATIVE); MUCUS,URINE FEW /HPF (NEGATIVE)
[2020-04-03] MEDS: ZOFRAN INJ 4 MG VIAL IVP PRN (17:20)
[2020-04-03] MEDS: K-RIDER 10 MEQ/NS 100 ML 10 MEQ/100 ML BAG IV PRN ×5 (17:39→23:30)
[2020-04-04] MEDS: NS 1000 ML 1,000 ML IV SCH ×5 (00:26→23:49)
[2020-04-04] MEDS: DILAUDID INJ IVP PRN ×5 (00:48→19:44)
[2020-04-04] MEDS: ZOFRAN INJ 4 MG VIAL IVP PRN ×3 (05:25→21:39)
--- NOTE | 2020-04-04 06:22 | RAD ---
HISTORYSmall bowel obstructionSTUDYAcute abdominal seriesCOMPARISONCT abdomen pelvis 01/31/2021FINDINGSThe heart is within normal limits in size. The nelida are normal. The lung [place] are clear. The abdominal gas pattern is nonspecific and nonobstructive. Dilated small bowel is not identified. No pneumoperitoneum is identified. No abnormal masses or abnormal calcifications are identified. Regional skeleton is intact.IMPRESSIONNonspecific nonobstructive bowel gas pattern. Previously noted distended small bowel is no longer identified. However, a residual small bowel obstruction with predominantly fluid-filled loops would not be visible on plain film.Lungs clearElectronically signed by: YUKI BEYER (Apr 04, 2020 06:21:36)
[2020-04-04 06:29] LABS: BASOPHILS % (AUTO) 0.3 % (0.2-1.0); EOSINOPHILS # (AUTO) 0.2 x10^3/uL (0.0-0.2); HEMATOCRIT 37.7 % (42.0-54.0); HEMOGLOBIN 13.3 g/dL (13.5-18.0); LYMPHOCYTES # (AUTO) 1.2 X10^3/uL (1.3-2.9); LYMPHOCYTES % (AUTO) 18.2 % (21.0-51.0); MEAN CORPUSCULAR HEMOGLOBIN 30.6 pg (27.0-34.0); MEAN CORPUSCULAR HGB CONC 35.2 g/dL (33.0-35.0); MEAN CORPUSCULAR VOLUME 87.1 fL (80.0-100.0); MEAN PLATELET VOLUME 8.1 fL (7.4-11.0); MONOCYTES # (AUTO) 0.6 x10^3/uL (0.3-0.8); MONOCYTES % (AUTO) 9.2 % (0.0-13.0); NEUTROPHILS # (AUTO) 4.4 x10^3/uL (2.2-4.8); NEUTROPHILS % (AUTO) 69.3 % (42.0-75.0); PLATELET COUNT 212 X10^3/uL (150.0-450.0); RED BLOOD COUNT 4.33 X10^6/uL (4.7-6.0); RED CELL DISTRIBUTION WIDTH 13.4 % (11.6-16.5); WHITE BLOOD COUNT 6.4 X10^3/uL (3.6-10.0)
[2020-04-04 06:37] LABS: ALANINE AMINOTRANSFERASE 26 Units/L (12-78); ALBUMIN 3.2 g/dL (3.4-5.0); ALKALINE PHOSPHATASE 49 Units/L (46-116); ASPARTATE AMINO TRANSFERASE 20 Units/L (15-37); BLOOD UREA NITROGEN 15 mg/dL (7-18); CALCIUM 8.1 mg/dL (8.5-10.1); CARBON DIOXIDE 26.7 mmol/L (21-32); CHLORIDE 108 mmol/L (98-107); COR CA(FOR HYPOALB) 8.7 mg/dL (8.5-10.1); CREATININE 1.01 mg/dL (0.70-1.30); SODIUM 142 mmol/L (136-145); TOTAL PROTEIN 5.9 g/dL (6.4-8.2); eGFR NON BLACK RACES > 60 (>60)
[2020-04-04] MEDS: PROTONIX INJ 40 MG VIAL IVP SCH (08:10)
[2020-04-04] MEDS: K-RIDER 10 MEQ/NS 100 ML 10 MEQ/100 ML BAG IV PRN ×6 (10:25→21:38)
[2020-04-04] MEDS ORDERED: DULCOLAX SUPPOSITORY 10 MG RECTAL ONE (10:47)
[2020-04-04] MEDS: ZITHROMAX TAB 250 MG PO SCH (11:18)
--- NOTE | 2020-04-04 15:57 | DR.PROGNOT ---
Hospital Progress Notes - Progress Note for Day of: Progress Note Date: 04/04/20 - History of Present Illness History of Present Illness: still c/o Lt side abdominal pain . passing flatus , no BM yet .. repeated Xray showed no bowel obstruction . - Past Medical Family Social History Past Med/Fam/Surg Hx: No changes since H&P Allergies: Allergies No Known Drug Allergies [NKDA] Allergy (Verified 10/22/19 18:33) - Review Of Systems ROS: No change since H&P - Vital Signs Vital Signs: Temperature 97.7 F Pulse Rate [Left Radial] 74 Pulse Rate 73 Respiratory Rate 20 Blood Pressure [Right Arm] 142/80 Blood Pressure 125/83 O2 Sat by Pulse Oximetry 95 - Physical Exam Oriented: Normal Eyes: Normal Ear: Normal Nose: Normal Throat: Normal Cardiovascular: Normal : Normal GI:Auscultation: Normal GI:Palpation: Normal GI: Tenderness: LUQ (full abdomen with LUQ and Lt side tenderness . BS+) Skin: Decreased Turgur Musculoskeletal: Normal, Back:Thoracic, Back:Lumbar Psychiatric: Anxiety Affect: Anxious Speech Pattern: Clear, Appropriate - Laboratory and Diagnostics Result Diagrams: 04/04/20 05:26 04/04/20 05:26 Labs: Laboratory WBC 6.4 X10^3/uL (3.6-10.0) 04/04/20 05:26 RBC 4.33 X10^6/uL (4.7-6.0) L 04/04/20 05:26 Hgb 13.3 g/dL (13.5-18.0) L D 04/04/20 05:26 Hct 37.7 % (42.0-54.0) L 04/04/20 05:26 MCV 87.1 fL (80.0-100.0) 04/04/20 05:26 MCH 30.6 pg (27.0-34.0) 04/04/20 05:26 MCHC 35.2 g/dL (33.0-35.0) H 04/04/20 05:26 RDW 13.4 % (11.6-16.5) 04/04/20 05:26 Plt Count 212 X10^3/uL (150.0-450.0) 04/04/20 05:26 MPV 8.1 fL (7.4-11.0) 04/04/20 05:26 Neut % (Auto) 69.3 % (42.0-75.0) 04/04/20 05:26 Lymph % (Auto) 18.2 % (21.0-51.0) L 04/04/20 05:26 [place] % (Auto) 9.2 % (0.0-13.0) 04/04/20 05:26 Eos % (Auto) 3.0 % (0.9-2.9) H 04/04/20 05:26 Baso % (Auto) 0.3 % (0.2-1.0) 04/04/20 05:26 Neut # (Auto) 4.4 x10^3/uL (2.2-4.8) 04/04/20 05:26 Lymph # (Auto) 1.2 X10^3/uL (1.3-2.9) L 04/04/20 05:26 [place] # (Auto) 0.6 x10^3/uL (0.3-0.8) 04/04/20 05:26 Eos # (Auto) 0.2 x10^3/uL (0.0-0.2) 04/04/20 05:26 Baso # (Auto) 0.0 X10^3/uL (0.0-0.1) 04/04/20 05:26 Absolute Nucleated RBC 0.2 /100WBC 04/04/20 05:26 Sodium 142 mmol/L (136-145) 04/04/20 05:26 Corrected Sodium TNP 04/04/20 05:26 Potassium 3.1 mmol/L (3.5-5.1) L 04/04/20 05:26 Chloride 108 mmol/L (98-107) H 04/04/20 05:26 Carbon Dioxide 26.7 mmol/L (21-32) 04/04/20 05:26 BUN 15 mg/dL (7-18) 04/04/20 05:26 Creatinine 1.01 mg/dL (0.70-1.30) 04/04/20 05:26 Est GFR (MDRD) Af Amer > 60 (>60) 04/04/20 05:26 Est GFR (MDRD) Non-Af > 60 (>60) 04/04/20 05:26 Glucose 94 mg/dL (65-99) 04/04/20 05:26 Calcium 8.1 mg/dL (8.5-10.1) L 04/04/20 05:26 Corrected Calcium 8.7 mg/dL (8.5-10.1) 04/04/20 05:26 Magnesium 2.0 mg/dL (1.7-2.9) 04/03/20 12:00 Total Bilirubin 1.20 mg/dL (0.2-1.0) H 04/04/20 05:26 AST 20 Units/L (15-37) 04/04/20 05:26 ALT 26 Units/L (12-78) 04/04/20 05:26 Alkaline Phosphatase 49 Units/L (46-116) 04/04/20 05:26 Total Protein 5.9 g/dL (6.4-8.2) L 04/04/20 05:26 Albumin 3.2 g/dL (3.4-5.0) L 04/04/20 05:26 Globulin 2.7 g/dL (2.5-4.5) 04/04/20 05:26 Albumin/Globulin Ratio 1.2 Ratio (1.1-2.1) 04/04/20 05:26 Amylase 16 Units/L (25-115) L 04/03/20 12:00 Lipase 59 Units/L (73-393) L 04/03/20 12:00 Specimen Type Clean catch urine 04/03/20 16:50 Urine Color Yellow (YELLOW) 04/03/20 16:50 Urine Appearance Clear (CLEAR) 04/03/20 16:50 Urine pH 5.0 (5.0 - 8.0) 04/03/20 16:50 Ur Specific [place] 1.010 (1.000-1.030) 04/03/20 16:50 Urine Protein 2+ (NEGATIVE) 04/03/20 16:50 Urine Glucose (UA) Negative (NEGATIVE) 04/03/20 16:50 Urine Ketones Negative (NEGATIVE) 04/03/20 16:50 Urine Occult Blood Negative (NEGATIVE) 04/03/20 16:50 Urine Nitrite Negative (NEGATIVE) 04/03/20 16:50 Urine Bilirubin Negative (NEGATIVE) 04/03/20 16:50 Urine Urobilinogen Normal (NORMAL) 04/03/20 16:50 Ur Leukocyte Esterase Negative (NEGATIVE) 04/03/20 16:50 Urine RBC 0-2 /HPF (0-3) 04/03/20 16:50 Urine WBC 0-2 /HPF (0-5) 04/03/20 16:50 Ur Squamous Epith Cells Rare /HPF (NEGATIVE) 04/03/20 16:50 Amorphous Sediment Trace /HPF (NEGATIVE) 04/03/20 16:50 Urine Bacteria Negative /HPF (NEGATIVE) 04/03/20 16:50 Urine Mucus Few /HPF (NEGATIVE) 04/03/20 16:50 Ur Culture Indicated? No/not indicated 04/03/20 16:50 SARS CoV-2 RNA Rapid EMETERIO Negative (NEGATIVE) 04/03/20 13:38 - Assessment and Plan 1: subsiding partial SBO . abdominal adhesions . to advance diet . - Problem Patient Problems: Patient Problems SBO (small bowel obstruction) (Acute) K56.609 Complete small bowel obstruction (Acute) K56.601 Hypertension (Chronic) I10 GERD (gastroesophageal reflux disease) (Chronic) K21.9 Lumbar and sacral spondyloarthritis (Chronic) M48.9
[2020-04-05] MEDS: DILAUDID INJ IVP PRN ×2 (03:44→19:08)
[2020-04-05 06:11] LABS: BASOPHILS % (AUTO) 0.3 % (0.2-1.0); EOSINOPHILS # (AUTO) 0.2 x10^3/uL (0.0-0.2); EOSINOPHILS % (AUTO) 3.2 % (0.9-2.9); HEMATOCRIT 38.1 % (42.0-54.0); HEMOGLOBIN 13.5 g/dL (13.5-18.0); LYMPHOCYTES # (AUTO) 1.1 X10^3/uL (1.3-2.9); MEAN CORPUSCULAR HEMOGLOBIN 30.7 pg (27.0-34.0); MEAN CORPUSCULAR HGB CONC 35.4 g/dL (33.0-35.0); MEAN CORPUSCULAR VOLUME 86.7 fL (80.0-100.0); MEAN PLATELET VOLUME 7.8 fL (7.4-11.0); MONOCYTES # (AUTO) 0.5 x10^3/uL (0.3-0.8); MONOCYTES % (AUTO) 8.2 % (0.0-13.0); NEUTROPHILS # (AUTO) 4.4 x10^3/uL (2.2-4.8); NEUTROPHILS % (AUTO) 71.3 % (42.0-75.0); PLATELET COUNT 206 X10^3/uL (150.0-450.0); RED CELL DISTRIBUTION WIDTH 13.2 % (11.6-16.5); WHITE BLOOD COUNT 6.2 X10^3/uL (3.6-10.0)
[2020-04-05 06:36] LABS: ALANINE AMINOTRANSFERASE 24 Units/L (12-78); ALBUMIN 3.3 g/dL (3.4-5.0); ALKALINE PHOSPHATASE 52 Units/L (46-116); ASPARTATE AMINO TRANSFERASE 19 Units/L (15-37); BLOOD UREA NITROGEN 8 mg/dL (7-18); CALCIUM 8.2 mg/dL (8.5-10.1); CHLORIDE 106 mmol/L (98-107); COR CA(FOR HYPOALB) 8.8 mg/dL (8.5-10.1); CREATININE 0.85 mg/dL (0.70-1.30); MAGNESIUM 2.1 mg/dL (1.7-2.9); SODIUM 142 mmol/L (136-145); TOTAL PROTEIN 6.1 g/dL (6.4-8.2); eGFR NON BLACK RACES > 60 (>60)
[2020-04-05] MEDS: ZOFRAN INJ 4 MG VIAL IVP PRN ×2 (08:55→22:15)
[2020-04-05] MEDS: NS 1000 ML 1,000 ML IV SCH ×5 (09:32→23:33)
[2020-04-05] MEDS: PROTONIX INJ 40 MG VIAL IVP SCH (09:33)
[2020-04-05] MEDS: K-RIDER 10 MEQ/NS 100 ML 10 MEQ/100 ML BAG IV PRN ×2 (09:33→11:30)
[2020-04-05] MEDS: ZITHROMAX TAB 250 MG PO SCH (09:33)
[2020-04-05] MEDS: MILK OF MAGNESIA PO SCH (09:33)
[2020-04-05 09:47] LABS: AMYLASE 21 Units/L (25-115); LIPASE 104 Units/L (73-393)
--- NOTE | 2020-04-05 11:05 | RAD ---
HISTORYABD PAINSTUDYKUB x-ray abdomen one viewCOMPARISONX-ray 04/04/2020FINDINGSPrior cholecystectomy. Mild colonic air is seen without dilation or constipation. Possible single minimally dilated small bowel loop in the left upper quadrant. Mild air is seen in the stomach.IMPRESSIONNonspecific mild bowel gas is seen, decreased from prior study. Mild small-bowel obstruction is not excluded given the single dilated left upper quadrant loop but findings could be from enteritis.Electronically signed by: López Joseph (Apr 05, 2020 11:04:25)
--- NOTE | 2020-04-05 11:26 | DR.PROGNOT ---
Hospital Progress Notes - Progress Note for Day of: Progress Note Date: 04/05/20 - History of Present Illness History of Present Illness: still c/o Lt side abdominal pain . passing flatus , no BM yet .. repeated Xray showed dilated bowel loop LUQ . normal WBC and hypokalemia is corrected . afebrile - Past Medical Family Social History Past Med/Fam/Surg Hx: No changes since H&P Allergies: Allergies No Known Drug Allergies [NKDA] Allergy (Verified 10/22/19 18:33) - Review Of Systems ROS: No change since H&P - Vital Signs Vital Signs: Temperature 98.7 F Pulse Rate [Left Radial] 65 Pulse Rate 73 Respiratory Rate 18 Blood Pressure [Right Arm] 120/75 Blood Pressure 125/83 O2 Sat by Pulse Oximetry 96 - Physical Exam Oriented: Normal Eyes: Normal Ear: Normal Nose: Normal Throat: Normal Cardiovascular: Normal : Normal GI:Auscultation: Normal GI:Palpation: Normal GI: Tenderness: LUQ (full abdomen with LUQ and Lt side tenderness . BS+) Skin: Decreased Turgur Musculoskeletal: Normal, Back:Thoracic, Back:Lumbar Psychiatric: Anxiety Affect: Anxious Speech Pattern: Clear, Appropriate - Laboratory and Diagnostics Result Diagrams: 04/05/20 05:18 04/05/20 05:18 Labs: Laboratory WBC 6.2 X10^3/uL (3.6-10.0) 04/05/20 05:18 RBC 4.40 X10^6/uL (4.7-6.0) L 04/05/20 05:18 Hgb 13.5 g/dL (13.5-18.0) 04/05/20 05:18 Hct 38.1 % (42.0-54.0) L 04/05/20 05:18 MCV 86.7 fL (80.0-100.0) 04/05/20 05:18 MCH 30.7 pg (27.0-34.0) 04/05/20 05:18 MCHC 35.4 g/dL (33.0-35.0) H 04/05/20 05:18 RDW 13.2 % (11.6-16.5) 04/05/20 05:18 Plt Count 206 X10^3/uL (150.0-450.0) 04/05/20 05:18 MPV 7.8 fL (7.4-11.0) 04/05/20 05:18 Neut % (Auto) 71.3 % (42.0-75.0) 04/05/20 05:18 Lymph % (Auto) 17.0 % (21.0-51.0) L 04/05/20 05:18 [place] % (Auto) 8.2 % (0.0-13.0) 04/05/20 05:18 Eos % (Auto) 3.2 % (0.9-2.9) H 04/05/20 05:18 Baso % (Auto) 0.3 % (0.2-1.0) 04/05/20 05:18 Neut # (Auto) 4.4 x10^3/uL (2.2-4.8) 04/05/20 05:18 Lymph # (Auto) 1.1 X10^3/uL (1.3-2.9) L 04/05/20 05:18 [place] # (Auto) 0.5 x10^3/uL (0.3-0.8) 04/05/20 05:18 Eos # (Auto) 0.2 x10^3/uL (0.0-0.2) 04/05/20 05:18 Baso # (Auto) 0.0 X10^3/uL (0.0-0.1) 04/05/20 05:18 Absolute Nucleated RBC 0.1 /100WBC 04/05/20 05:18 Sodium 142 mmol/L (136-145) 04/05/20 05:18 Corrected Sodium TNP 04/05/20 05:18 Potassium 3.7 mmol/L (3.5-5.1) 04/05/20 05:18 Chloride 106 mmol/L (98-107) 04/05/20 05:18 Carbon Dioxide 28.0 mmol/L (21-32) 04/05/20 05:18 BUN 8 mg/dL (7-18) 04/05/20 05:18 Creatinine 0.85 mg/dL (0.70-1.30) 04/05/20 05:18 Est GFR (MDRD) Af Amer > 60 (>60) 04/05/20 05:18 Est GFR (MDRD) Non-Af > 60 (>60) 04/05/20 05:18 Glucose 91 mg/dL (65-99) 04/05/20 05:18 Calcium 8.2 mg/dL (8.5-10.1) L 04/05/20 05:18 Corrected Calcium 8.8 mg/dL (8.5-10.1) 04/05/20 05:18 Magnesium 2.1 mg/dL (1.7-2.9) 04/05/20 05:18 Total Bilirubin 1.00 mg/dL (0.2-1.0) 04/05/20 05:18 AST 19 Units/L (15-37) 04/05/20 05:18 ALT 24 Units/L (12-78) 04/05/20 05:18 Alkaline Phosphatase 52 Units/L (46-116) 04/05/20 05:18 Total Protein 6.1 g/dL (6.4-8.2) L 04/05/20 05:18 Albumin 3.3 g/dL (3.4-5.0) L 04/05/20 05:18 Globulin 2.8 g/dL (2.5-4.5) 04/05/20 05:18 Albumin/Globulin Ratio 1.2 Ratio (1.1-2.1) 04/05/20 05:18 Amylase 21 Units/L (25-115) L 04/05/20 09:30 Lipase 104 Units/L (73-393) 04/05/20 09:30 Specimen Type Clean catch urine 04/03/20 16:50 Urine Color Yellow (YELLOW) 04/03/20 16:50 Urine Appearance Clear (CLEAR) 04/03/20 16:50 Urine pH 5.0 (5.0 - 8.0) 04/03/20 16:50 Ur Specific [place] 1.010 (1.000-1.030) 04/03/20 16:50 Urine Protein 2+ (NEGATIVE) 04/03/20 16:50 Urine Glucose (UA) Negative (NEGATIVE) 04/03/20 16:50 Urine Ketones Negative (NEGATIVE) 04/03/20 16:50 Urine Occult Blood Negative (NEGATIVE) 04/03/20 16:50 Urine Nitrite Negative (NEGATIVE) 04/03/20 16:50 Urine Bilirubin Negative (NEGATIVE) 04/03/20 16:50 Urine Urobilinogen Normal (NORMAL) 04/03/20 16:50 Ur Leukocyte Esterase Negative (NEGATIVE) 04/03/20 16:50 Urine RBC 0-2 /HPF (0-3) 04/03/20 16:50 Urine WBC 0-2 /HPF (0-5) 04/03/20 16:50 Ur Squamous Epith Cells Rare /HPF (NEGATIVE) 04/03/20 16:50 Amorphous Sediment Trace /HPF (NEGATIVE) 04/03/20 16:50 Urine Bacteria Negative /HPF (NEGATIVE) 04/03/20 16:50 Urine Mucus Few /HPF (NEGATIVE) 04/03/20 16:50 Ur Culture Indicated? No/not indicated 04/03/20 16:50 SARS CoV-2 RNA Rapid EMETERIO Negative (NEGATIVE) 04/03/20 13:38 - Assessment and Plan 1: slowly subsiding partial SBO . abdominal adhesions . to keep on liquid diet and repeat abdominal Xray .. - Problem Patient Problems: Patient Problems SBO (small bowel obstruction) (Acute) K56.609 Complete small bowel obstruction (Acute) K56.601 Hypertension (Chronic) I10 GERD (gastroesophageal reflux disease) (Chronic) K21.9 Lumbar and sacral spondyloarthritis (Chronic) M48.9
[2020-04-06] MEDS: NS 1000 ML 1,000 ML IV SCH ×2 (02:55→09:27)
[2020-04-06] MEDS: DILAUDID INJ IVP PRN ×2 (04:08→10:24)
[2020-04-06] MEDS: PROTONIX INJ 40 MG VIAL IVP SCH (09:26)
[2020-04-06] MEDS: MILK OF MAGNESIA PO SCH (09:26)
[2020-04-06] MEDS: ZITHROMAX TAB 250 MG PO SCH (09:27)
[2020-04-06] MEDS: ZOFRAN INJ 4 MG VIAL IVP PRN (09:28)
[2020-04-06 09:29] LABS: ALANINE AMINOTRANSFERASE 30 Units/L (12-78); ALBUMIN 3.6 g/dL (3.4-5.0); ALKALINE PHOSPHATASE 62 Units/L (46-116); ASPARTATE AMINO TRANSFERASE 17 Units/L (15-37); BLOOD UREA NITROGEN 8 mg/dL (7-18); CALCIUM 8.7 mg/dL (8.5-10.1); CARBON DIOXIDE 26.6 mmol/L (21-32); CHLORIDE 104 mmol/L (98-107); CREATININE 0.87 mg/dL (0.70-1.30); SODIUM 139 mmol/L (136-145); TOTAL PROTEIN 6.8 g/dL (6.4-8.2); eGFR NON BLACK RACES > 60 (>60)
[2020-04-06] MEDS: K-RIDER 10 MEQ/NS 100 ML 10 MEQ/100 ML BAG IV PRN (11:43)
--- NOTE | 2020-04-06 11:52 | RAD ---
HISTORYABD [id number]/24/2021FINDINGSEvaluation of the abdomen demonstrates a nonspecific b ut nonobstructive bowel gas pattern. Scattered air-filled loops of small bowel within left upper quad rant are again observed essentially stable. Distal colonic gas remains present. No pathological soft tissue mass or calcification can be observed. The bony structures are grossly intact.IMPRESSIONStabl e radiograph with a nonspecific bowel gas pattern as detailed above.Electronically signed by: REAGAN HAQUE (Apr 06, 2020 11:50:42)
[2020-04-06 12:00] VITALS: BP 150/86
[2020-04-06] MEDS ORDERED: DULCOLAX SUPPOSITORY 10 MG RECTAL ONE (13:00)
== END 2020-04-06 14:55 | disposition home or self-care (01) | DRG 390 ==
LOC: ER 10:49 → MED/SURG 14:56
PROVIDERS: ADMIT Internal Medicine; ATTEND Internal Medicine
DX: K21.9 Gastro-esophageal reflux disease without esophagitis; K56.50 Intestinal adhesions [bands], unspecified as to partial versus complete obstruction; I10 Essential (primary) hypertension; Z20.822 Contact with and (suspected) exposure to COVID-19; M47.816 Spondylosis without myelopathy or radiculopathy, lumbar region

== ENCOUNTER 2021-03-12 09:47 | Observation (INO) ==
[2021-03-12 09:52] VITALS: BMI 36.0
--- NOTE | 2021-03-12 10:32 | DR.ABDMALE ---
HPI Time seen Time Seen by Provider: 03/12/21 10:29 PCP Primary Care Physician: CURTIS CHRISTOPHER HPI comment HPI Comment: PATIENT IS 51YR OLD MALE IN ER WITH GENERALIZED ABDOMINAL PAIN WITH NAUSEA AND VOMITING. HISTORY ADHESIONS AND BOWEL OBSTRUCTION. DENIES FEVER, DYSURIA OR DIARRHEA. SYMPTOMS GETTING WORSE. Complaint Chief Complaint Doctors Comments: ABDOMIINAL PAIN, NAUSEA AND VOMITING SINCE THIS AM. Chief Complaint:: PT C/O GENERALIZED ABDOMINAL PAIN & N/V ONSET THIS AM. PT STATES HE HX OF SCAR TISSUE IN ABDOMEN FROM PREVIOUS SURGURIES. PT IS NOT ACTIVLEY VOMITING @ THIS TIME. COVID-19 Coronavirus risk:travel/contact w/high risk person: No Has patient experienced Coronavirus symptoms: No Reviewed Nurses Notes Review: Yes Source History provided by:: PATIENT Mode of arrival Mode of Arrival: Ambulatory Timing Onset of Chief Complaint: 03/12/21 Came on: Suddenly Duration Duration: Constant Duration: Hours Location Location: Diffuse Severity Severity: Moderate Quality Quality: Sharp Context Onset: Suddenly History of: Abdominal surgery and Bowel obstruction Modifying factors Worsening Factors: Food Improving Factors: Lying Still Associated signs and symptoms Associated Signs and Symptoms: Nausea and Vomiting Other history Other History: HISTORY ADHESIONS, BOWEL OBSTRUCTION. PMH PMH Past Medical History: Yes Past Medical History: Arthritis, GERD and Hypertension Past Surgical History: Yes Surgical History: Appendectomy, Bowel Resection, Cholecystectomy, Ortho Surgery and Other Family History History of Family Medical Conditions: Yes Family Medical History: Cancer, [place] and Hypertension Social History Do you use any recreational Drugs:: No Travel Risk Coronavirus risk:travel/contact w/high risk person: No Has patient experienced Coronavirus symptoms: No Infectious screening Have you traveled outside the country in the last 6 months?: No Isolation: Standard ROS Review of Systems Constitutional: No Symptoms Reported and See HPI; negative Fever, Weakness and Fatigue Eyes: No Symptoms Reported and See HPI ENTM: No Symptoms Reported and See HPI; negative Nose Discharge and Nose Congestion Respiratoy: No Symptoms Reported and See HPI; negative Moist Cough, Short of Breath and Wheezing Cardiovascular: No Symptoms Reported and See HPI; negative Chest Pain Gastrointestinal/Abdominal: See HPI, Abdominal Pain, Nausea and Vomiting; negative Diarrhea Genitourinary: No Symptoms Reported and See HPI; negative Dysuria, Frequency and Hematuria Neurological: No Symptoms Reported and See HPI; negative Headache, Weakness and Dizziness Musculoskeletal: No Symptoms Reported and See HPI; negative Back Pain and Muscle Pain Integumentary: No Symptoms Reported and See HPI; negative Rash and Juandice Hematologic/Lymphatic: No Symptoms Reported and See HPI; negative Easy Bruising Endocrine: No Symptoms Reported and See HPI; negative Increased Thirst and Increased Urine Psychiatric: No Symptoms Reported and See HPI All Other Systems: Reviewed and Negative PE Vital Signs Vital Signs: Temp Pulse Resp BP BP BP Pulse Ox 03/12/21 13:00 98.0 F 82 18 156/86 98 03/12/21 10:53 18 03/12/21 09:48 98.0 F 98 H 18 129/97 97 05/03/20 08:40 127/86 04/06/20 11:59 150/86 03/11/19 08:00 124/77 General Limitations: No Limitations General Appearance: Alert and In No Apparent Distress Head Head Exam: Normal Inspection, Atraumatic and Normocephalic Eyes Eye exam: Normal Appearance; negative Scleral Icterus and Conjunctival Injection ENT ENT Exam: Normal Exam, Normal Oropharynx, Normal External Ear Exam and TM's Normal Bilaterally Neck Neck Exam: Normal Inspection and Trachea Midline; negative Tenderness Chest Chest Inspection: Normal Inspection and Symmetric Chest Wall Rise; negative Tenderness Respiratory Respiratory Exam: Normal Lung Sounds Bilat; negative Accessory Muscle Use, Chest Wall Tenderness and Respiratory Distress Respiratory Exam: Bilateral: Rhonchi and Lower: Rhonchi Cardiovascular Cardiovascular Exam: Regular Rate, Normal Rhythm and Normal Heart Sounds; negative Systolic Murmur and Diastolic Murmur Abdominal Exam Abdominal Exam: Normal Inspection, Normal Bowel Sounds, Soft and Tenderness Abdominal Tenderness: Diffuse and Moderate Rectal Rectal Exam: Deferred Back Back Exam: Normal Inspection; negative (R) CVA Tenderness and (L) CVA Tenderness Extremeties Extremities Exam: Normal Inspection and Normal Capillary Refill Exam: Male: Deferred; negative Inguinal Hernial Neurologic Neurological Exam: Alert and Oriented X3; negative Motor Sensory Deficit Psychiatric Psychiatric Exam: Normal Affect and Normal Mood Skin Skin Exam: Warm, Dry, Intact and Normal Color MDM Additional Information Obtained From Additional information provided by: Old Records Differential Diagnosis Differential Diagnosis: Bowel Obstruction, Constipation, Diverticular disease, Gastritus/PUD, Inflammatory BD, Pancreatitis, Urinary tract infection and Urolithiasis COURSE Treatment Treatment: SEE ORDERS. Consultation Consultation Comments: DISCUSSED PATIENT WITH DR. SHIN. HE WILL ADMIT PATIENT. Education/Counseling Education/Counseling: Patient Educated On: Diagnosis and Needs for Follow Up ROR Labs Reviewed Laboratory Results Reviewed?: Yes Result Diagrams: 03/14/21 05:15 03/14/21 10:16 Laboratory: WBC 16.6 X10^3/uL (3.6-10.0) H 03/12/21 10:48 RBC 5.57 X10^6/uL (4.7-6.0) 03/12/21 10:48 Hgb 16.5 g/dL (13.5-18.0) 03/12/21 10:48 Hct 47.7 % (42.0-54.0) 03/12/21 10:48 MCV 85.7 fL (80.0-100.0) 03/12/21 10:48 MCH 29.6 pg (27.0-34.0) 03/12/21 10:48 MCHC 34.6 g/dL (33.0-35.0) 03/12/21 10:48 RDW 13.5 % (11.6-16.5) 03/12/21 10:48 Plt Count 255 X10^3/uL (150.0-450.0) 03/12/21 10:48 Plt Count Comment Adequate (ADEQUATE) 03/12/21 10:48 MPV 7.4 fL (7.4-11.0) 03/12/21 10:48 Neut % (Auto) 91.2 % (42.0-75.0) H 03/12/21 10:48 Lymph % (Auto) 5.2 % (21.0-51.0) L 03/12/21 10:48 [place] % (Auto) 3.0 % (0.0-13.0) 03/12/21 10:48 Eos % (Auto) 0.3 % (0.9-2.9) L 03/12/21 10:48 Baso % (Auto) 0.3 % (0.2-1.0) 03/12/21 10:48 Neut # (Auto) 15.1 x10^3/uL (2.2-4.8) H 03/12/21 10:48 Lymph # (Auto) 0.9 X10^3/uL (1.3-2.9) L 03/12/21 10:48 [place] # (Auto) 0.5 x10^3/uL (0.3-0.8) 03/12/21 10:48 Eos # (Auto) 0.0 x10^3/uL (0.0-0.2) 03/12/21 10:48 Baso # (Auto) 0.0 X10^3/uL (0.0-0.1) 03/12/21 10:48 Absolute Nucleated RBC 0.2 /100WBC 03/12/21 10:48 Total Counted 100 03/12/21 10:48 Neutrophils % (Manual) 87 % (39-76) H 03/12/21 10:48 Band Neutrophils % 2 % (0-10) 03/12/21 10:48 Lymphocytes % (Manual) 8 % (13-43) L 03/12/21 10:48 Monocytes % (Manual) 2 % (4-9) L 03/12/21 10:48 Eosinophils % (Manual) 1 % (0-6) 03/12/21 10:48 Plt Morphology Comment Normal (NORMAL) 03/12/21 10:48 RBC Morphology Normal (NORMAL) 03/12/21 10:48 Sodium 142 mmol/L (136-145) 03/12/21 10:48 Corrected Sodium 142 mmol/L (136-145) 03/12/21 10:48 Potassium 3.6 mmol/L (3.5-5.1) 03/12/21 10:48 Chloride 104 mmol/L (98-107) 03/12/21 10:48 Carbon Dioxide 27.2 mmol/L (21-32) 03/12/21 10:48 BUN 14 mg/dL (7-18) 03/12/21 10:48 Creatinine 0.96 mg/dL (0.70-1.30) 03/12/21 10:48 Est GFR (MDRD) Af Amer > 60 (>60) 03/12/21 10:48 Est GFR (MDRD) Non-Af > 60 (>60) 03/12/21 10:48 Glucose 113 mg/dL (65-99) H 03/12/21 10:48 Calcium 9.7 mg/dL (8.5-10.1) 03/12/21 10:48 Amylase 28 Units/L (25-115) 03/12/21 10:48 Lipase 67 Units/L (73-393) L 03/12/21 10:48 Specimen Type Clean catch urine 03/12/21 10:42 Urine Color Dark yellow (YELLOW) 03/12/21 10:42 Urine Appearance Clear (CLEAR) 03/12/21 10:42 Urine pH 5.0 (5.0 - 8.0) 03/12/21 10:42 Ur Specific [place] 1.025 (1.000-1.030) 03/12/21 10:42 Urine Protein 2+ (NEGATIVE) 03/12/21 10:42 Urine Glucose (UA) Negative (NEGATIVE) 03/12/21 10:42 Urine Ketones Negative (NEGATIVE) 03/12/21 10:42 Urine Occult Blood Negative (NEGATIVE) 03/12/21 10:42 Urine Nitrite Negative (NEGATIVE) 03/12/21 10:42 Urine Bilirubin 1+ (NEGATIVE) 03/12/21 10:42 Urine Urobilinogen Normal (NORMAL) 03/12/21 10:42 Ur Leukocyte Esterase Negative (NEGATIVE) 03/12/21 10:42 Urine RBC None seen /HPF (0-3) 03/12/21 10:42 Urine WBC 0-2 /HPF (0-5) 03/12/21 10:42 Ur Squamous Epith Cells Rare /HPF (NEGATIVE) 03/12/21 10:42 Urine Bacteria Trace /HPF (NEGATIVE) 03/12/21 10:42 Urine Mucus Numerous /HPF (NEGATIVE) 03/12/21 10:42 Ur Culture Indicated? No/not indicated 03/12/21 10:42 SARS CoV-2 RNA Rapid EMETERIO Negative (NEGATIVE) 03/12/21 13:25 XRAY XRAY Interpreted by: Radiologist (REPORT NOTED AND DISCUSSED WITH PATIENT.) and Self Opioid Opioid Risk Tool Age (Jun box if 16-45): No History of Preadolescent Sexual Abuse: No Total: 0 Total Score Risk Category: Low Risk Copyright: Iglesias predicting aberrant behaviors Diagnosis Discharge Problem: Abdominal pain Qualifiers: Abdominal location: generalized Qualified Code(s): R10.84 - Generalized abdominal pain Bowel obstruction Qualifiers: Intestinal obstruction type: obstruction due to adhesions Intestinal obstruction extent: complete Qualified Code(s): K56.52 - Intestinal adhesions [bands] with complete obstruction Instructions Instructions: Bowel Obstruction, Moly-ym-Lbgv Abdominal Pain, Adult, Lskl-ny-Feup How to Take Your Blood Pressure, Nqdb-bs-Fais Abdominal Pain, Adult Hypertension, Adult, Rltr-wi-Nnhn Small Bowel Obstruction Forms: Excuse From Work or School Precautions for COVID19 [facility] Social Distancing
[2021-03-12] MEDS ORDERED: DEMEROL INJ IVP ONE (10:37)
[2021-03-12] MEDS ORDERED: ZOFRAN INJ 4 MG VIAL IVP ONE (10:37)
[2021-03-12] MEDS ORDERED: DEMEROL INJ ONE (10:39)
[2021-03-12] MEDS ORDERED: NS 1,000 ML IV 1,000 ML ONE (10:40)
[2021-03-12] MEDS ORDERED: ZOFRAN INJ 4 MG VIAL ONE (10:40)
[2021-03-12 10:57] LABS: BASOPHILS % (AUTO) 0.3 % (0.2-1.0); EOSINOPHILS % (AUTO) 0.3 % (0.9-2.9); HEMATOCRIT 47.7 % (42.0-54.0); HEMOGLOBIN 16.5 g/dL (13.5-18.0); LYMPHOCYTES # (AUTO) 0.9 X10^3/uL (1.3-2.9); LYMPHOCYTES % (AUTO) 5.2 % (21.0-51.0); MEAN CORPUSCULAR HEMOGLOBIN 29.6 pg (27.0-34.0); MEAN CORPUSCULAR HGB CONC 34.6 g/dL (33.0-35.0); MEAN CORPUSCULAR VOLUME 85.7 fL (80.0-100.0); MEAN PLATELET VOLUME 7.4 fL (7.4-11.0); MONOCYTES # (AUTO) 0.5 x10^3/uL (0.3-0.8); NEUTROPHILS # (AUTO) 15.1 x10^3/uL (2.2-4.8); NEUTROPHILS % (AUTO) 91.2 % (42.0-75.0); RED BLOOD COUNT 5.57 X10^6/uL (4.7-6.0); RED CELL DISTRIBUTION WIDTH 13.5 % (11.6-16.5); WHITE BLOOD COUNT 16.6 X10^3/uL (3.6-10.0)
[2021-03-12] MEDS ORDERED: NS 1,000 ML IV 1,000 ML IV SCH ×2 (11:00→16:00)
[2021-03-12 11:05] LABS: BLOOD UREA NITROGEN 14 mg/dL (7-18); CALCIUM 9.7 mg/dL (8.5-10.1); CARBON DIOXIDE 27.2 mmol/L (21-32); CHLORIDE 104 mmol/L (98-107); COR NA(FOR HYPERGLY) 142 mmol/L (136-145); CREATININE 0.96 mg/dL (0.70-1.30); SODIUM 142 mmol/L (136-145); eGFR NON BLACK RACES > 60 (>60)
[2021-03-12 11:07] LABS: BILIRUBIN,URINE 1+ (NEGATIVE); BLOOD/HEMOGLOBIN,URINE NEGATIVE (NEGATIVE); GLUCOSE, URINE NEGATIVE (NEGATIVE); KETONES,URINE NEGATIVE (NEGATIVE); LEUKOCYTE ESTERASE ,URINE NEGATIVE (NEGATIVE); NITRITES,URINE NEGATIVE (NEGATIVE); PROTEIN,URINE 2+ (NEGATIVE); UROBILINOGEN,URINE NORMAL (NORMAL)
[2021-03-12 11:12] LABS: AMYLASE 28 Units/L (25-115); LIPASE 67 Units/L (73-393)
[2021-03-12 11:25] LABS: APPEARANCE,URINE CLEAR (CLEAR); COLOR,URINE DARK YELLOW (YELLOW)
[2021-03-12 11:26] LABS: BACTERIA,URINE TRACE /HPF (NEGATIVE); RBC,URINE NONE SEEN /HPF (0-3); SQUAMOUS EPITHELIAL CELL,UR RARE /HPF (NEGATIVE)
[2021-03-12 11:30] LABS: BAND NEUTROPHILS % 2 % (0-10); PLATELET MORPHOLOGY COMMENT NORMAL (NORMAL)
--- NOTE | 2021-03-12 12:24 | CT ---
HISTORYABDOMINAL PAIN. SCAR TISSUE OF INTESTINE REMOVED 2020.brSTUDYABDOMEN/PELVIS W/O CONCOMPARISONCT abdomen and pelvis 04/03/2020TECHNIQUEMultiple CT axial images of the abdomen and pelvis were obtained without IV contrast. Coronal and sagittal images were reconstructed. Dose reduction techniques included Automated Exposure Control (AEC) and adjustment of mA and kV.FINDINGSThe lung bases are clear. Heart size is normal.Surgical clips are present in the gallbladder fossa from a cholecystectomy. Liver, spleen, adrenal glands, and pancreas are unremarkable.The kidneys have normal size and shape. No abnormal calcification is present. There is no hydronephrosis or significant perirenal edema. The ureters are not dilated. Urinary bladder is contracted.There is mild dilatation of the proximal small bowel measuring up to 3.9 cm. Distal small bowel is collapsed; the terminal ileum measures about 7 mm. Findings are consistent with a small bowel obstruction. Surgical clips are present from an appendectomy. No pneumoperitoneum.There are diverticula in the colon. But there is no wall thickening or pericolonic edema to suggest acute diverticulitis. Small hiatal hernia is about 3 cm.Degenerative changes are present in the spine.IMPRESSION1. Findings consistent with small-bowel obstruction2. No pneumoperitoneum3. Colonic diverticulaElectronically signed by: Ken Mathew (Mar 12, 2021 12:22:41)
[2021-03-12] MEDS ORDERED: ZOFRAN INJ 4 MG VIAL IVP PRN (15:28)
[2021-03-12] MEDS ORDERED: MORPHINE SULFATE INJ 2 MG INJ IVP PRN (15:28)
[2021-03-12] MEDS ORDERED: ZOSYN VIAL 3.375 GRAMS 3.375 G in NS 100 ML IV + SPIKE MINIBAG* 100 ML IV ONE (15:28)
[2021-03-12] MEDS: ZOFRAN INJ 4 MG VIAL IVP PRN ×2 (16:14→23:15)
[2021-03-12] MEDS: MORPHINE SULFATE INJ 4 MG IVP PRN ×2 (16:14→23:15)
[2021-03-12] MEDS: D5 1/2 NS 1,000 ML 1,000 ML IV SCH (16:14)
[2021-03-12] MEDS: DEMEROL INJ IVP PRN (18:59)
[2021-03-12] MEDS: FLAGYL IV PREMIX 500 MG BAG 500 MG/100 ML BAG IV SCH (21:24)
[2021-03-13] MEDS: D5 1/2 NS 1,000 ML 1,000 ML IV SCH ×4 (00:10→16:59)
[2021-03-13] MEDS: FLAGYL IV PREMIX 500 MG BAG 500 MG/100 ML BAG IV SCH ×4 (02:59→20:53)
[2021-03-13] MEDS: DEMEROL INJ IVP PRN ×4 (03:32→19:44)
--- NOTE | 2021-03-13 06:23 | RAD ---
HISTORYSBO GB, APPENDECTOMY, SCAR TISSUE [id number]/25/2021 FINDINGSEvaluation of the abdomen demonstrates a normal bowel gas pattern. There is a moderate amount of fecal material throughout the colon. Surgical clips in the right upper quadrant. No pathological soft tissue mass or calcification can be observed. The bony structures are grossly intact.IMPRESSIONNo evidence for acute abdominal pathology identified.Electronically signed by: Lino Wilcox (Mar 13, 2021 06:22:26)
[2021-03-13 06:40] LABS: BLOOD UREA NITROGEN 13 mg/dL (7-18); CALCIUM 8.2 mg/dL (8.5-10.1); CARBON DIOXIDE 26.8 mmol/L (21-32); CHLORIDE 109 mmol/L (98-107); COR NA(FOR HYPERGLY) 143 mmol/L (136-145); CREATININE 0.91 mg/dL (0.70-1.30); SODIUM 143 mmol/L (136-145); eGFR NON BLACK RACES > 60 (>60)
[2021-03-13] MEDS: ZOFRAN INJ 4 MG VIAL IVP PRN (08:10)
[2021-03-13] MEDS: LOVENOX INJ 40 MG SYR SC SCH (08:28)
[2021-03-13] MEDS: PROTONIX INJ 40 MG VIAL IVP SCH (08:29)
--- NOTE | 2021-03-13 10:51 | DR.PROGNOT ---
Hospital Progress Notes - Progress Note for Day of: Progress Note Date: 03/13/21 - Chief Complaint Chief Complaint: still having moderate to severe abdominalpain more on the RT side . c/o nausea . no vomiting .. no BM yet . abdominal X ray was reported as normal . WBC 16.6.. BUN/CREA ..LFT. normal . afebrile . - Past Medical Family Social History Past Med/Fam/Surg Hx: No changes since H&P Allergies: Allergies No Known Drug Allergies [NKDA] Allergy (Verified 10/22/19 18:33) - Review Of Systems ROS: No change since H&P - Vital Signs Vital Signs: Temperature 98.3 F Pulse Rate [Left Radial] 67 Pulse Rate 82 Respiratory Rate 20 Blood Pressure [Right Arm] 103/72 Blood Pressure [Left Arm] 124/77 Blood Pressure 156/86 O2 Sat by Pulse Oximetry 96 - Physical Exam Oriented: Normal Eyes: Normal Ear: Normal Nose: Normal Throat: Normal Respiratory: Normal Cardiovascular: Normal : Normal GI:Auscultation: Decreased GI:Palpation: Normal GI: Tenderness: Diffuse (more RT side .. BS hypoactive .) Speech Pattern: Clear, Appropriate - Laboratory and Diagnostics Result Diagrams: 03/12/21 10:48 03/13/21 05:31 Labs: Laboratory WBC 16.6 X10^3/uL (3.6-10.0) H 03/12/21 10:48 RBC 5.57 X10^6/uL (4.7-6.0) 03/12/21 10:48 Hgb 16.5 g/dL (13.5-18.0) 03/12/21 10:48 Hct 47.7 % (42.0-54.0) 03/12/21 10:48 MCV 85.7 fL (80.0-100.0) 03/12/21 10:48 MCH 29.6 pg (27.0-34.0) 03/12/21 10:48 MCHC 34.6 g/dL (33.0-35.0) 03/12/21 10:48 RDW 13.5 % (11.6-16.5) 03/12/21 10:48 Plt Count 255 X10^3/uL (150.0-450.0) 03/12/21 10:48 Plt Count Comment Adequate (ADEQUATE) 03/12/21 10:48 MPV 7.4 fL (7.4-11.0) 03/12/21 10:48 Neut % (Auto) 91.2 % (42.0-75.0) H 03/12/21 10:48 Lymph % (Auto) 5.2 % (21.0-51.0) L 03/12/21 10:48 [place] % (Auto) 3.0 % (0.0-13.0) 03/12/21 10:48 Eos % (Auto) 0.3 % (0.9-2.9) L 03/12/21 10:48 Baso % (Auto) 0.3 % (0.2-1.0) 03/12/21 10:48 Neut # (Auto) 15.1 x10^3/uL (2.2-4.8) H 03/12/21 10:48 Lymph # (Auto) 0.9 X10^3/uL (1.3-2.9) L 03/12/21 10:48 [place] # (Auto) 0.5 x10^3/uL (0.3-0.8) 03/12/21 10:48 Eos # (Auto) 0.0 x10^3/uL (0.0-0.2) 03/12/21 10:48 Baso # (Auto) 0.0 X10^3/uL (0.0-0.1) 03/12/21 10:48 Absolute Nucleated RBC 0.2 /100WBC 03/12/21 10:48 Total Counted 100 03/12/21 10:48 Neutrophils % (Manual) 87 % (39-76) H 03/12/21 10:48 Band Neutrophils % 2 % (0-10) 03/12/21 10:48 Lymphocytes % (Manual) 8 % (13-43) L 03/12/21 10:48 Monocytes % (Manual) 2 % (4-9) L 03/12/21 10:48 Eosinophils % (Manual) 1 % (0-6) 03/12/21 10:48 Plt Morphology Comment Normal (NORMAL) 03/12/21 10:48 RBC Morphology Normal (NORMAL) 03/12/21 10:48 Sodium 143 mmol/L (136-145) 03/13/21 05:31 Corrected Sodium 143 mmol/L (136-145) 03/13/21 05:31 Potassium 3.8 mmol/L (3.5-5.1) 03/13/21 05:31 Chloride 109 mmol/L (98-107) H 03/13/21 05:31 Carbon Dioxide 26.8 mmol/L (21-32) 03/13/21 05:31 BUN 13 mg/dL (7-18) 03/13/21 05:31 Creatinine 0.91 mg/dL (0.70-1.30) 03/13/21 05:31 Est GFR (MDRD) Af Amer > 60 (>60) 03/13/21 05:31 Est GFR (MDRD) Non-Af > 60 (>60) 03/13/21 05:31 Glucose 117 mg/dL (65-99) H 03/13/21 05:31 Calcium 8.2 mg/dL (8.5-10.1) L 03/13/21 05:31 Amylase 28 Units/L (25-115) 03/12/21 10:48 Lipase 67 Units/L (73-393) L 03/12/21 10:48 Specimen Type Clean catch urine 03/12/21 10:42 Urine Color Dark yellow (YELLOW) 03/12/21 10:42 Urine Appearance Clear (CLEAR) 03/12/21 10:42 Urine pH 5.0 (5.0 - 8.0) 03/12/21 10:42 Ur Specific [place] 1.025 (1.000-1.030) 03/12/21 10:42 Urine Protein 2+ (NEGATIVE) 03/12/21 10:42 Urine Glucose (UA) Negative (NEGATIVE) 03/12/21 10:42 Urine Ketones Negative (NEGATIVE) 03/12/21 10:42 Urine Occult Blood Negative (NEGATIVE) 03/12/21 10:42 Urine Nitrite Negative (NEGATIVE) 03/12/21 10:42 Urine Bilirubin 1+ (NEGATIVE) 03/12/21 10:42 Urine Urobilinogen Normal (NORMAL) 03/12/21 10:42 Ur Leukocyte Esterase Negative (NEGATIVE) 03/12/21 10:42 Urine RBC None seen /HPF (0-3) 03/12/21 10:42 Urine WBC 0-2 /HPF (0-5) 03/12/21 10:42 Ur Squamous Epith Cells Rare /HPF (NEGATIVE) 03/12/21 10:42 Urine Bacteria Trace /HPF (NEGATIVE) 03/12/21 10:42 Urine Mucus Numerous /HPF (NEGATIVE) 03/12/21 10:42 Ur Culture Indicated? No/not indicated 03/12/21 10:42 SARS CoV-2 RNA Rapid EMETERIO Negative (NEGATIVE) 03/12/21 13:25 - Assessment and Plan 1: partial SBO . abdominal adhesions . dehydration . keep NPO , IVF. pain control . DVT prophylaxis.repeat abdominal Xray
[2021-03-13] MEDS ORDERED: BENADRYL INJ 50 MG VIAL IM PRN (14:50)
[2021-03-13] MEDS: BENADRYL INJ 50 MG VIAL IVP PRN ×2 (15:09→21:00)
--- NOTE | 2021-03-13 18:52 | DR.H&P ---
H&P - History & Physical for Day of: H&P Date: 03/12/21 - Chief Complaint Chief Complaint: Abdominal pain, nausea and vomiting - History of Present Illness History of Present Illness: Patient is a 51 year old WM who was admitted due to abdominal pain nausea and vomiting r/o sbo. Patient has had SBO in the past and has had 2 exp laps due to this. Patient is frequently admitted due to partial obstructions. Patient reports symptoms continued; no BM yet; Dr. Antoine consulted; pending BM. No other concerns at present. - Past Medical History Past Medical History: Hypertension, GERD, Arthritis Additional Medical History: SBO - Past Surgical History Surgical History: Appendectomy, Cholecystectomy, Ortho Surgery Additional Surgical History: Lysis of adhesions for SBO. - Family History Family Medical History: Cancer - Social History Does patient currently use any type of tobacco product: No Have you used tobacco products in the last 12 months: No Does any household member use tobacco: No Alcohol Use: None Drug Use: None - Medications Home Medications: No Known Drug Allergies [NKDA] Allergy (Verified 10/22/19 18:33) CONTINUE taking the following medications budesonide 0.25 mg INHALATION BID 03/12/21 [History] ecahwkuwjg-eaxvjnmggynix-bxxc 1 tab PO Q4-6H PRN 03/12/21 [History] clopidogrel 75 mg PO DAILY 03/12/21 [History] ergocalciferol (vitamin D2) [Vitamin D2] 1,250 mcg PO WEEKLY 03/12/21 [History] fenofibrate 160 mg PO HS 03/12/21 [History] hydrocodone-acetaminophen 1 tab PO Q6HR 03/12/21 [History] levalbuterol HCl 1.25 mg INHALATION BID 03/12/21 [History] levofloxacin 500 mg PO DAILY 03/12/21 [History] lisinopril 10 mg PO DAILY 03/12/21 [History] losartan 100 mg PO QAM 03/12/21 [History] methylprednisolone 4 mg PO DIRECTED 03/12/21 [History] metoclopramide HCl 10 mg PO Q6H PRN 03/12/21 [History] metoprolol tartrate 50 mg PO BID 03/12/21 [History] pantoprazole 40 mg PO ONCE 03/12/21 [History] pravastatin 40 mg PO HS 01/31/22 [History] tadalafil 20 mg PO Q36H PRN 03/12/21 [History] tamsulosin 0.4 mg PO DAILY 03/12/21 [History] tizanidine 4 mg PO Q8H PRN 03/12/21 [History] - Review of Systems Constitutional: See HPI Eyes: See HPI ENT: See HPI Respiratory: See HPI Cardiovascular: See HPI Gastrointestinal: See HPI Genitourinary: See HPI Musculoskeletal: See HPI Skin: See HPI Neurological: See HPI - Physical Exam Vital Signs: Temperature 98.0 F Pulse Rate [Left Radial] 71 Pulse Rate 82 Respiratory Rate 19 Blood Pressure [Right Arm] 105/63 Blood Pressure [Left Arm] 124/77 Blood Pressure 156/86 O2 Sat by Pulse Oximetry 97 Oriented: Normal, Time, Person, Place Eyes: Normal Ear: Normal Nose: Normal Throat: Normal Respiratory: Clear Throughout Cardiovascular: Normal : Normal Auscultation: Bowel Sounds: Normal Palpation: Normal Tenderness: Diffuse, Moderate (Generalized ) Skin: Normal Musculoskeletal: Normal Psychiatric: Normal Mood Description: Calm Affect: Normal Speech Pattern: Clear, Appropriate - Assessment/Plan (1) SBO (small bowel obstruction) Status: Acute Plan: Positive bowel sounds. IV fluids. Pending BM. General surgery consulted. Cont all med (2) Abdominal pain Qualifiers: Abdominal location: upper abdomen, unspecified Qualified Code(s): R10.10 - Upper abdominal pain, unspecified Status: Acute (3) History of small bowel obstruction Status: Chronic - Allergies Allergies/Adverse Reactions: Allergies Allergy/AdvReac Type Severity Reaction Status Date / Time No Known Drug Allergies Allergy Verified 10/22/19 18:33 [NKDA]
--- NOTE | 2021-03-13 18:55 | PCM.PROG ---
Progress Note - Subjective Subjective: Patient was admitted as per HPI. Patient reports minimal improvement in symptoms. No new concerns at present. No major changes - Past Medical Family Social History Past Med/Fam/Surg Hx: No changes since H&P Allergies: Allergies No Known Drug Allergies [NKDA] Allergy (Verified 10/22/19 18:33) - Review of Systems ROS: No change since H&P - Vital Signs and I&O's Vital Signs: Temperature 98.0 F Pulse Rate [Left Radial] 71 Pulse Rate 82 Respiratory Rate 19 Blood Pressure [Right Arm] 105/63 Blood Pressure [Left Arm] 124/77 Blood Pressure 156/86 O2 Sat by Pulse Oximetry 97 Intake and Output: Intake & Output 03/10/21 03/11/21 03/12/21 03/13/21 23:59 23:59 23:59 23:59 Intake Total 1234 / 1234 2195 / 2195 Balance 1234 / 1234 2195 / 2195 - Physical Exam Oriented: Normal, Time, Person, Place Eyes: Normal Ear: Normal Nose: Normal Throat: Normal Respiratory: Normal Cardiovascular: Normal : Normal Auscultation: Bowel Sounds: Normal Palpation: Normal Tenderness: Diffuse, Moderate (Generalized ) Skin: Normal Musculoskeletal: Normal Psychiatric: Normal Mood Description: Calm Affect: Normal Speech Pattern: Clear, Appropriate - Laboratory and Diagnostics Result Diagrams: 03/12/21 10:48 03/13/21 05:31 Labs: Laboratory WBC 16.6 X10^3/uL (3.6-10.0) H 03/12/21 10:48 RBC 5.57 X10^6/uL (4.7-6.0) 03/12/21 10:48 Hgb 16.5 g/dL (13.5-18.0) 03/12/21 10:48 Hct 47.7 % (42.0-54.0) 03/12/21 10:48 MCV 85.7 fL (80.0-100.0) 03/12/21 10:48 MCH 29.6 pg (27.0-34.0) 03/12/21 10:48 MCHC 34.6 g/dL (33.0-35.0) 03/12/21 10:48 RDW 13.5 % (11.6-16.5) 03/12/21 10:48 Plt Count 255 X10^3/uL (150.0-450.0) 03/12/21 10:48 Plt Count Comment Adequate (ADEQUATE) 03/12/21 10:48 MPV 7.4 fL (7.4-11.0) 03/12/21 10:48 Neut % (Auto) 91.2 % (42.0-75.0) H 03/12/21 10:48 Lymph % (Auto) 5.2 % (21.0-51.0) L 03/12/21 10:48 [place] % (Auto) 3.0 % (0.0-13.0) 03/12/21 10:48 Eos % (Auto) 0.3 % (0.9-2.9) L 03/12/21 10:48 Baso % (Auto) 0.3 % (0.2-1.0) 03/12/21 10:48 Neut # (Auto) 15.1 x10^3/uL (2.2-4.8) H 03/12/21 10:48 Lymph # (Auto) 0.9 X10^3/uL (1.3-2.9) L 03/12/21 10:48 [place] # (Auto) 0.5 x10^3/uL (0.3-0.8) 03/12/21 10:48 Eos # (Auto) 0.0 x10^3/uL (0.0-0.2) 03/12/21 10:48 Baso # (Auto) 0.0 X10^3/uL (0.0-0.1) 03/12/21 10:48 Absolute Nucleated RBC 0.2 /100WBC 03/12/21 10:48 Total Counted 100 03/12/21 10:48 Neutrophils % (Manual) 87 % (39-76) H 03/12/21 10:48 Band Neutrophils % 2 % (0-10) 03/12/21 10:48 Lymphocytes % (Manual) 8 % (13-43) L 03/12/21 10:48 Monocytes % (Manual) 2 % (4-9) L 03/12/21 10:48 Eosinophils % (Manual) 1 % (0-6) 03/12/21 10:48 Plt Morphology Comment Normal (NORMAL) 03/12/21 10:48 RBC Morphology Normal (NORMAL) 03/12/21 10:48 Sodium 143 mmol/L (136-145) 03/13/21 05:31 Corrected Sodium 143 mmol/L (136-145) 03/13/21 05:31 Potassium 3.8 mmol/L (3.5-5.1) 03/13/21 05:31 Chloride 109 mmol/L (98-107) H 03/13/21 05:31 Carbon Dioxide 26.8 mmol/L (21-32) 03/13/21 05:31 BUN 13 mg/dL (7-18) 03/13/21 05:31 Creatinine 0.91 mg/dL (0.70-1.30) 03/13/21 05:31 Est GFR (MDRD) Af Amer > 60 (>60) 03/13/21 05:31 Est GFR (MDRD) Non-Af > 60 (>60) 03/13/21 05:31 Glucose 117 mg/dL (65-99) H 03/13/21 05:31 Calcium 8.2 mg/dL (8.5-10.1) L 03/13/21 05:31 Amylase 28 Units/L (25-115) 03/12/21 10:48 Lipase 67 Units/L (73-393) L 03/12/21 10:48 Specimen Type Clean catch urine 03/12/21 10:42 Urine Color Dark yellow (YELLOW) 03/12/21 10:42 Urine Appearance Clear (CLEAR) 03/12/21 10:42 Urine pH 5.0 (5.0 - 8.0) 03/12/21 10:42 Ur Specific [place] 1.025 (1.000-1.030) 03/12/21 10:42 Urine Protein 2+ (NEGATIVE) 03/12/21 10:42 Urine Glucose (UA) Negative (NEGATIVE) 03/12/21 10:42 Urine Ketones Negative (NEGATIVE) 03/12/21 10:42 Urine Occult Blood Negative (NEGATIVE) 03/12/21 10:42 Urine Nitrite Negative (NEGATIVE) 03/12/21 10:42 Urine Bilirubin 1+ (NEGATIVE) 03/12/21 10:42 Urine Urobilinogen Normal (NORMAL) 03/12/21 10:42 Ur Leukocyte Esterase Negative (NEGATIVE) 03/12/21 10:42 Urine RBC None seen /HPF (0-3) 03/12/21 10:42 Urine WBC 0-2 /HPF (0-5) 03/12/21 10:42 Ur Squamous Epith Cells Rare /HPF (NEGATIVE) 03/12/21 10:42 Urine Bacteria Trace /HPF (NEGATIVE) 03/12/21 10:42 Urine Mucus Numerous /HPF (NEGATIVE) 03/12/21 10:42 Ur Culture Indicated? No/not indicated 03/12/21 10:42 SARS CoV-2 RNA Rapid EMETERIO Negative (NEGATIVE) 03/12/21 13:25 - Plan (1) SBO (small bowel obstruction) Status: Acute Plan: Positive bowel sounds. IV fluids. Pending BM. General surgery consulted. Cont all med (2) Abdominal pain Status: Acute Qualifiers: Abdominal location: upper abdomen, unspecified Qualified Code(s): R10.10 - Upper abdominal pain, unspecified (3) History of small bowel obstruction Status: Chronic
[2021-03-13] MEDS ORDERED: XOPENEX 1.25 MG/3 ML NEBULE NEB PRN (18:59)
[2021-03-13] MEDS ORDERED: REGLAN TAB 10 MG PO PRN (18:59)
[2021-03-13] MEDS: ZESTRIL TAB 10 MG PO SCH (20:53)
[2021-03-13] MEDS: LOPRESSOR TAB 50 MG PO SCH (20:53)
[2021-03-13] MEDS ORDERED: PULMICORT NEB TX 0.5 MG NEB SCH (21:00)
[2021-03-14] MEDS: DEMEROL INJ IVP PRN ×4 (00:28→14:25)
[2021-03-14] MEDS: D5 1/2 NS 1,000 ML 1,000 ML IV SCH ×3 (00:28→17:36)
[2021-03-14] MEDS: ZOFRAN INJ 4 MG VIAL IVP PRN ×2 (00:28→14:25)
[2021-03-14] MEDS: FLAGYL IV PREMIX 500 MG BAG 500 MG/100 ML BAG IV SCH ×3 (02:16→14:18)
[2021-03-14] MEDS: BENADRYL INJ 50 MG VIAL IVP PRN ×2 (05:01→11:15)
[2021-03-14 06:34] LABS: BASOPHILS % (AUTO) 0.2 % (0.2-1.0); EOSINOPHILS # (AUTO) 0.1 x10^3/uL (0.0-0.2); EOSINOPHILS % (AUTO) 1.9 % (0.9-2.9); HEMATOCRIT 37.8 % (42.0-54.0); HEMOGLOBIN 13.4 g/dL (13.5-18.0); LYMPHOCYTES % (AUTO) 18.4 % (21.0-51.0); MEAN CORPUSCULAR HEMOGLOBIN 29.8 pg (27.0-34.0); MEAN CORPUSCULAR HGB CONC 35.4 g/dL (33.0-35.0); MEAN CORPUSCULAR VOLUME 84.2 fL (80.0-100.0); MONOCYTES # (AUTO) 0.4 x10^3/uL (0.3-0.8); MONOCYTES % (AUTO) 7.7 % (0.0-13.0); NEUTROPHILS # (AUTO) 4.1 x10^3/uL (2.2-4.8); NEUTROPHILS % (AUTO) 71.8 % (42.0-75.0); RED BLOOD COUNT 4.49 X10^6/uL (4.7-6.0); WHITE BLOOD COUNT 5.7 X10^3/uL (3.6-10.0)
[2021-03-14 06:50] LABS: ALANINE AMINOTRANSFERASE 165 Units/L (12-78); ALBUMIN 3.3 g/dL (3.4-5.0); ALKALINE PHOSPHATASE 83 Units/L (46-116); ASPARTATE AMINO TRANSFERASE 83 Units/L (15-37); BLOOD UREA NITROGEN 9 mg/dL (7-18); CALCIUM 8.2 mg/dL (8.5-10.1); CARBON DIOXIDE 28.1 mmol/L (21-32); CHLORIDE 106 mmol/L (98-107); COR CA(FOR HYPOALB) 8.8 mg/dL (8.5-10.1); CREATININE 0.91 mg/dL (0.70-1.30); SODIUM 141 mmol/L (136-145); eGFR NON BLACK RACES > 60 (>60)
[2021-03-14] MEDS ORDERED: MICRO K EXTEN CAP 10 MEQ PO PRN (07:35)
[2021-03-14] MEDS ORDERED: K-RIDER 10 MEQ/NS 100 ML 10 MEQ/100 ML BAG IV PRN (07:35)
[2021-03-14] MEDS ORDERED: POTASSIUM CHL 40 MEQ/NS 0.45% 500 ML IV PRN (07:35)
[2021-03-14] MEDS ORDERED: POTASSIUM CHL 60 MEQ/NS 0.45% 500 ML IV PRN (07:35)
[2021-03-14] MEDS ORDERED: K-DUR TAB 20 MEQ PO PRN (07:35)
[2021-03-14] MEDS ORDERED: KLOR-CON PO PRN (07:35)
[2021-03-14] MEDS ORDERED: POTASSIUM CHLORIDE LIQ 20 MEQ UDC PO PRN (07:35)
[2021-03-14] MEDS: PROTONIX INJ 40 MG VIAL IVP SCH (08:21)
[2021-03-14] MEDS: LOVENOX INJ 40 MG SYR SC SCH (08:21)
[2021-03-14] MEDS: LOPRESSOR TAB 50 MG PO SCH (08:31)
[2021-03-14] MEDS: ZESTRIL TAB 10 MG PO SCH (08:32)
[2021-03-14] MEDS ORDERED: COZAAR PO SCH (09:00)
--- NOTE | 2021-03-14 09:24 | DR.PROGNOT ---
Hospital Progress Notes - Progress Note for Day of: Progress Note Date: 03/14/21 - Chief Complaint Chief Complaint: less abdominal pain and no vomiting . had small BM this am . - Past Medical Family Social History Past Med/Fam/Surg Hx: No changes since H&P Allergies: Allergies No Known Drug Allergies [NKDA] Allergy (Verified 10/22/19 18:33) - Review Of Systems ROS: No change since H&P - Vital Signs Vital Signs: Temperature 98.2 F Pulse Rate [Left Radial] 75 Pulse Rate 82 Respiratory Rate 20 Blood Pressure [Right Arm] 115/69 Blood Pressure [Left Arm] 124/77 Blood Pressure 156/86 O2 Sat by Pulse Oximetry 95 - Physical Exam Oriented: Normal, Time, Person, Place Eyes: Normal Ear: Normal Nose: Normal Throat: Normal Respiratory: Normal Cardiovascular: Normal : Normal GI:Auscultation: Normal GI:Palpation: Normal GI: Tenderness: Diffuse, Moderate (Generalized ) Skin: Normal Musculoskeletal: Normal Psychiatric: Normal Mood Description: Calm Affect: Normal Speech Pattern: Clear, Appropriate - Laboratory and Diagnostics Result Diagrams: 03/14/21 05:15 03/14/21 05:15 Labs: Laboratory WBC 5.7 X10^3/uL (3.6-10.0) D 03/14/21 05:15 RBC 4.49 X10^6/uL (4.7-6.0) L 03/14/21 05:15 Hgb 13.4 g/dL (13.5-18.0) L D 03/14/21 05:15 Hct 37.8 % (42.0-54.0) L 03/14/21 05:15 MCV 84.2 fL (80.0-100.0) 03/14/21 05:15 MCH 29.8 pg (27.0-34.0) 03/14/21 05:15 MCHC 35.4 g/dL (33.0-35.0) H 03/14/21 05:15 RDW 13.0 % (11.6-16.5) 03/14/21 05:15 Plt Count 200 X10^3/uL (150.0-450.0) 03/14/21 05:15 Plt Count Comment Adequate (ADEQUATE) 03/12/21 10:48 MPV 8.0 fL (7.4-11.0) 03/14/21 05:15 Neut % (Auto) 71.8 % (42.0-75.0) 03/14/21 05:15 Lymph % (Auto) 18.4 % (21.0-51.0) L 03/14/21 05:15 [place] % (Auto) 7.7 % (0.0-13.0) 03/14/21 05:15 Eos % (Auto) 1.9 % (0.9-2.9) 03/14/21 05:15 Baso % (Auto) 0.2 % (0.2-1.0) 03/14/21 05:15 Neut # (Auto) 4.1 x10^3/uL (2.2-4.8) 03/14/21 05:15 Lymph # (Auto) 1.0 X10^3/uL (1.3-2.9) L 03/14/21 05:15 [place] # (Auto) 0.4 x10^3/uL (0.3-0.8) 03/14/21 05:15 Eos # (Auto) 0.1 x10^3/uL (0.0-0.2) 03/14/21 05:15 Baso # (Auto) 0.0 X10^3/uL (0.0-0.1) 03/14/21 05:15 Absolute Nucleated RBC 0.1 /100WBC 03/14/21 05:15 Total Counted 100 03/12/21 10:48 Neutrophils % (Manual) 87 % (39-76) H 03/12/21 10:48 Band Neutrophils % 2 % (0-10) 03/12/21 10:48 Lymphocytes % (Manual) 8 % (13-43) L 03/12/21 10:48 Monocytes % (Manual) 2 % (4-9) L 03/12/21 10:48 Eosinophils % (Manual) 1 % (0-6) 03/12/21 10:48 Plt Morphology Comment Normal (NORMAL) 03/12/21 10:48 RBC Morphology Normal (NORMAL) 03/12/21 10:48 Sodium 141 mmol/L (136-145) 03/14/21 05:15 Corrected Sodium TNP 03/14/21 05:15 Potassium 3.3 mmol/L (3.5-5.1) L 03/14/21 05:15 Chloride 106 mmol/L (98-107) 03/14/21 05:15 Carbon Dioxide 28.1 mmol/L (21-32) 03/14/21 05:15 BUN 9 mg/dL (7-18) 03/14/21 05:15 Creatinine 0.91 mg/dL (0.70-1.30) 03/14/21 05:15 Est GFR (MDRD) Af Amer > 60 (>60) 03/14/21 05:15 Est GFR (MDRD) Non-Af > 60 (>60) 03/14/21 05:15 Glucose 109 mg/dL (65-99) H 03/14/21 05:15 Calcium 8.2 mg/dL (8.5-10.1) L 03/14/21 05:15 Corrected Calcium 8.8 mg/dL (8.5-10.1) 03/14/21 05:15 Total Bilirubin 0.80 mg/dL (0.2-1.0) 03/14/21 05:15 AST 83 Units/L (15-37) H 03/14/21 05:15 ALT 165 Units/L (12-78) H 03/14/21 05:15 Alkaline Phosphatase 83 Units/L (46-116) 03/14/21 05:15 Total Protein 6.0 g/dL (6.4-8.2) L 03/14/21 05:15 Albumin 3.3 g/dL (3.4-5.0) L 03/14/21 05:15 Globulin 2.7 g/dL (2.5-4.5) 03/14/21 05:15 Albumin/Globulin Ratio 1.2 Ratio (1.1-2.1) 03/14/21 05:15 Amylase 28 Units/L (25-115) 03/12/21 10:48 Lipase 67 Units/L (73-393) L 03/12/21 10:48 Specimen Type Clean catch urine 03/12/21 10:42 Urine Color Dark yellow (YELLOW) 03/12/21 10:42 Urine Appearance Clear (CLEAR) 03/12/21 10:42 Urine pH 5.0 (5.0 - 8.0) 03/12/21 10:42 Ur Specific [place] 1.025 (1.000-1.030) 03/12/21 10:42 Urine Protein 2+ (NEGATIVE) 03/12/21 10:42 Urine Glucose (UA) Negative (NEGATIVE) 03/12/21 10:42 Urine Ketones Negative (NEGATIVE) 03/12/21 10:42 Urine Occult Blood Negative (NEGATIVE) 03/12/21 10:42 Urine Nitrite Negative (NEGATIVE) 03/12/21 10:42 Urine Bilirubin 1+ (NEGATIVE) 03/12/21 10:42 Urine Urobilinogen Normal (NORMAL) 03/12/21 10:42 Ur Leukocyte Esterase Negative (NEGATIVE) 03/12/21 10:42 Urine RBC None seen /HPF (0-3) 03/12/21 10:42 Urine WBC 0-2 /HPF (0-5) 03/12/21 10:42 Ur Squamous Epith Cells Rare /HPF (NEGATIVE) 03/12/21 10:42 Urine Bacteria Trace /HPF (NEGATIVE) 03/12/21 10:42 Urine Mucus Numerous /HPF (NEGATIVE) 03/12/21 10:42 Ur Culture Indicated? No/not indicated 03/12/21 10:42 SARS CoV-2 RNA Rapid EMETERIO Negative (NEGATIVE) 03/12/21 13:25 - Assessment and Plan 1: partial SBO . abdominal adhesions . dehydration . to start soft diet , IVF. pain control . DVT prophylaxis.repeat abdominal Xray - Problem Patient Problems: Patient Problems SBO (small bowel obstruction) (Acute) K56.609 Abdominal pain (Acute) R10.9 History of small bowel obstruction (Chronic) Z87.19
--- NOTE | 2021-03-14 13:09 | PCM.PROG ---
Progress Note - Subjective Subjective: Patient was admitted as per HPI. Patient reports minimal improvement in symptoms. No new concerns at present. No major changes. Patient reports he is passing flatus but has not yet had a BM. - Past Medical Family Social History Past Med/Fam/Surg Hx: No changes since H&P Allergies: Allergies No Known Drug Allergies [NKDA] Allergy (Verified 10/22/19 18:33) - Review of Systems ROS: No change since H&P - Vital Signs and I&O's Vital Signs: Temperature 98.4 F Pulse Rate [Left Radial] 71 Pulse Rate 82 Respiratory Rate 20 Blood Pressure [Right Arm] 119/72 Blood Pressure [Left Arm] 124/77 Blood Pressure 156/86 O2 Sat by Pulse Oximetry 97 Intake and Output: Intake & Output 03/11/21 03/12/21 03/13/21 03/14/21 23:59 23:59 23:59 23:59 Intake Total 1234 / 1234 3095 / 3095 1200 / 1200 Balance 1234 / 1234 3095 / 3095 1200 / 1200 - Physical Exam Oriented: Normal, Time, Person, Place Eyes: Normal Ear: Normal Nose: Normal Throat: Normal Respiratory: Normal Cardiovascular: Normal : Normal Auscultation: Bowel Sounds: Normal Palpation: Normal Tenderness: Diffuse, Moderate (Generalized ) Skin: Normal Musculoskeletal: Normal Psychiatric: Normal Mood Description: Calm Affect: Normal Speech Pattern: Clear, Appropriate - Laboratory and Diagnostics Result Diagrams: 03/14/21 05:15 03/14/21 10:16 Labs: Laboratory WBC 5.7 X10^3/uL (3.6-10.0) D 03/14/21 05:15 RBC 4.49 X10^6/uL (4.7-6.0) L 03/14/21 05:15 Hgb 13.4 g/dL (13.5-18.0) L D 03/14/21 05:15 Hct 37.8 % (42.0-54.0) L 03/14/21 05:15 MCV 84.2 fL (80.0-100.0) 03/14/21 05:15 MCH 29.8 pg (27.0-34.0) 03/14/21 05:15 MCHC 35.4 g/dL (33.0-35.0) H 03/14/21 05:15 RDW 13.0 % (11.6-16.5) 03/14/21 05:15 Plt Count 200 X10^3/uL (150.0-450.0) 03/14/21 05:15 Plt Count Comment Adequate (ADEQUATE) 03/12/21 10:48 MPV 8.0 fL (7.4-11.0) 03/14/21 05:15 Neut % (Auto) 71.8 % (42.0-75.0) 03/14/21 05:15 Lymph % (Auto) 18.4 % (21.0-51.0) L 03/14/21 05:15 [place] % (Auto) 7.7 % (0.0-13.0) 03/14/21 05:15 Eos % (Auto) 1.9 % (0.9-2.9) 03/14/21 05:15 Baso % (Auto) 0.2 % (0.2-1.0) 03/14/21 05:15 Neut # (Auto) 4.1 x10^3/uL (2.2-4.8) 03/14/21 05:15 Lymph # (Auto) 1.0 X10^3/uL (1.3-2.9) L 03/14/21 05:15 [place] # (Auto) 0.4 x10^3/uL (0.3-0.8) 03/14/21 05:15 Eos # (Auto) 0.1 x10^3/uL (0.0-0.2) 03/14/21 05:15 Baso # (Auto) 0.0 X10^3/uL (0.0-0.1) 03/14/21 05:15 Absolute Nucleated RBC 0.1 /100WBC 03/14/21 05:15 Total Counted 100 03/12/21 10:48 Neutrophils % (Manual) 87 % (39-76) H 03/12/21 10:48 Band Neutrophils % 2 % (0-10) 03/12/21 10:48 Lymphocytes % (Manual) 8 % (13-43) L 03/12/21 10:48 Monocytes % (Manual) 2 % (4-9) L 03/12/21 10:48 Eosinophils % (Manual) 1 % (0-6) 03/12/21 10:48 Plt Morphology Comment Normal (NORMAL) 03/12/21 10:48 RBC Morphology Normal (NORMAL) 03/12/21 10:48 Sodium 141 mmol/L (136-145) 03/14/21 05:15 Corrected Sodium TNP 03/14/21 05:15 Potassium 3.7 mmol/L (3.5-5.1) 03/14/21 10:16 Chloride 106 mmol/L (98-107) 03/14/21 05:15 Carbon Dioxide 28.1 mmol/L (21-32) 03/14/21 05:15 BUN 9 mg/dL (7-18) 03/14/21 05:15 Creatinine 0.91 mg/dL (0.70-1.30) 03/14/21 05:15 Est GFR (MDRD) Af Amer > 60 (>60) 03/14/21 05:15 Est GFR (MDRD) Non-Af > 60 (>60) 03/14/21 05:15 Glucose 109 mg/dL (65-99) H 03/14/21 05:15 Calcium 8.2 mg/dL (8.5-10.1) L 03/14/21 05:15 Corrected Calcium 8.8 mg/dL (8.5-10.1) 03/14/21 05:15 Total Bilirubin 0.80 mg/dL (0.2-1.0) 03/14/21 05:15 AST 83 Units/L (15-37) H 03/14/21 05:15 ALT 165 Units/L (12-78) H 03/14/21 05:15 Alkaline Phosphatase 83 Units/L (46-116) 03/14/21 05:15 Total Protein 6.0 g/dL (6.4-8.2) L 03/14/21 05:15 Albumin 3.3 g/dL (3.4-5.0) L 03/14/21 05:15 Globulin 2.7 g/dL (2.5-4.5) 03/14/21 05:15 Albumin/Globulin Ratio 1.2 Ratio (1.1-2.1) 03/14/21 05:15 Amylase 28 Units/L (25-115) 03/12/21 10:48 Lipase 67 Units/L (73-393) L 03/12/21 10:48 Specimen Type Clean catch urine 03/12/21 10:42 Urine Color Dark yellow (YELLOW) 03/12/21 10:42 Urine Appearance Clear (CLEAR) 03/12/21 10:42 Urine pH 5.0 (5.0 - 8.0) 03/12/21 10:42 Ur Specific [place] 1.025 (1.000-1.030) 03/12/21 10:42 Urine Protein 2+ (NEGATIVE) 03/12/21 10:42 Urine Glucose (UA) Negative (NEGATIVE) 03/12/21 10:42 Urine Ketones Negative (NEGATIVE) 03/12/21 10:42 Urine Occult Blood Negative (NEGATIVE) 03/12/21 10:42 Urine Nitrite Negative (NEGATIVE) 03/12/21 10:42 Urine Bilirubin 1+ (NEGATIVE) 03/12/21 10:42 Urine Urobilinogen Normal (NORMAL) 03/12/21 10:42 Ur Leukocyte Esterase Negative (NEGATIVE) 03/12/21 10:42 Urine RBC None seen /HPF (0-3) 03/12/21 10:42 Urine WBC 0-2 /HPF (0-5) 03/12/21 10:42 Ur Squamous Epith Cells Rare /HPF (NEGATIVE) 03/12/21 10:42 Urine Bacteria Trace /HPF (NEGATIVE) 03/12/21 10:42 Urine Mucus Numerous /HPF (NEGATIVE) 03/12/21 10:42 Ur Culture Indicated? No/not indicated 03/12/21 10:42 SARS CoV-2 RNA Rapid EMETERIO Negative (NEGATIVE) 03/12/21 13:25 - Plan (1) SBO (small bowel obstruction) Status: Acute Plan: Positive bowel sounds. IV fluids. Pending BM. General surgery consulted. Cont all med (2) Abdominal pain Status: Acute Qualifiers: Abdominal location: upper abdomen, unspecified Qualified Code(s): R10.10 - Upper abdominal pain, unspecified (3) History of small bowel obstruction Status: Chronic (4) CAD (coronary artery disease) Status: Chronic Plan: stable
[2021-03-14 17:15] VITALS: BP 146/66
== END 2021-03-14 17:50 | disposition home or self-care (01) ==
LOC: MED/SURG 09:47 → ER 09:47 → MED/SURG 15:04
PROVIDERS: ADMIT Surgery; ATTEND Surgery

== ENCOUNTER 2021-05-26 13:47 | Inpatient (IN) ==
[2021-05-26 14:21] LABS: WHITE BLOOD COUNT 12.2 X10^3/uL (3.6-10.0)
[2021-05-26 14:24] LABS: BASOPHILS % (AUTO) 0.4 % (0.2-1.0); EOSINOPHILS # (AUTO) 0.1 x10^3/uL (0.0-0.2); EOSINOPHILS % (AUTO) 0.4 % (0.9-2.9); HEMATOCRIT 44.9 % (42.0-54.0); HEMOGLOBIN 16.1 g/dL (13.5-18.0); LYMPHOCYTES # (AUTO) 1.6 X10^3/uL (1.3-2.9); MEAN CORPUSCULAR HEMOGLOBIN 30.2 pg (27.0-34.0); MEAN CORPUSCULAR HGB CONC 35.9 g/dL (33.0-35.0); MEAN PLATELET VOLUME 7.3 fL (7.4-11.0); MONOCYTES # (AUTO) 0.6 x10^3/uL (0.3-0.8); MONOCYTES % (AUTO) 4.9 % (0.0-13.0); NEUTROPHILS # (AUTO) 9.9 x10^3/uL (2.2-4.8); NEUTROPHILS % (AUTO) 81.3 % (42.0-75.0); RED BLOOD COUNT 5.34 X10^6/uL (4.7-6.0); RED CELL DISTRIBUTION WIDTH 13.5 % (11.6-16.5)
--- NOTE | 2021-05-26 14:32 | RAD ---
HISTORYChest painSTUDYChest AP [id number]/12/2021FINDINGSHear t size is normal. Priscilla are normal. Lung [place] are clear. No pleural effusions or pneumothoraces are identified. Bony thorax is unremarkable.IMPRESSIONNo significant abnormality identifiedElectronically signed by: YUKI BEYER (May 26, 2021 14:31:58)
[2021-05-26 14:41] LABS: ALANINE AMINOTRANSFERASE 27 Units/L (12-78); ALBUMIN 4.3 g/dL (3.4-5.0); ALKALINE PHOSPHATASE 94 Units/L (46-116); ASPARTATE AMINO TRANSFERASE 20 Units/L (15-37); BLOOD UREA NITROGEN 16 mg/dL (7-18); CALCIUM 9.3 mg/dL (8.5-10.1); CARBON DIOXIDE 22.6 mmol/L (21-32); CHLORIDE 102 mmol/L (98-107); CKMB % 0.8 % (<4); COR NA(FOR HYPERGLY) 140 mmol/L (136-145); CREATINE KINASE 120 Units/L (39-308); CREATINE KINASE MB < 1.0 ng/mL (0-4.0); CREATININE 1.15 mg/dL (0.70-1.30); SODIUM 139 mmol/L (136-145); TOTAL PROTEIN 7.2 g/dL (6.4-8.2); eGFR NON BLACK RACES > 60 (>60)
[2021-05-26 14:45] LABS: TSH (3RD GENERATION) 1.578 uIU/mL (0.358-3.74)
--- NOTE | 2021-05-26 15:28 | CT ---
HISTORYN/V, LEFT SIDED ABDOMINAL PAINSTUDYABDOMEN/PELVIS WITH CONCOMPARISONJanuary 2021TECHNIQUEAxial CT images of the abdomen and pelvis were obtained after the administration of IV contrast and reformatted into coronal and sagittal planes for further evaluation.Radiation dose: 1120.40 mGy-cm total DLPFINDINGSLung bases are clear.Stomach appears normal.Solid visceral organs of the upper abdomen are unremarkable.Status post cholecystectomy.Homogeneous enhancement of the kidneys without hydronephrosis or hydroureter.Unremarkable appearance of the urinary bladder.Imaged reproductive structures are unremarkable.Unremarkable appearance of the colon.Gas and fluid-filled loops of dilated small bowel throughout the abdomen; multiple loops with small bowel wall thickening and mild edema within the associated mesentery. Gradual decompression of the small bowel in the right lower quadrant.Status post appendectomy.No pneumoperitoneum.Trace free fluid in the pelvis.No adenopathy.No acute osseous abnormality.IMPRESSIONGas and fluid-filled loops of dilated small bowel throughout the abdomen; multiple loops with small bowel wall thickening and mild edema within the associated mesentery. Gradual decompression of the small bowel in the right lower quadrant. Findings are concerning for an infectious or inflammatory enteritis; although a [id number] mechanical obstruction in the right lower quadrant is not excluded.Electronically signed by: Ke Naidu (May 26, 2021 15:28:30)
--- NOTE | 2021-05-26 15:41 | DR.CP ---
HPI Time Seen Time Seen by Provider: 05/26/21 14:08 PCP Primary Care Physician: NILESH SU HPI Comment HPI Comment: According to pt he woke up this morning with severe abdomianl pain and bloating associated with nausea .He deos use opiods fro low back pian .has ahd small bowel movement today .here to have it checked .he has had similar pro blem before where he had blockages in his bowel .he is worried he may be experiening similar problem Complaint Chief Complaint Doctor Comments: abdominal pain Chief Complaint:: PT STATES THAT THIS MORNING WHEN HE WOKE UP HE HAD SEVERE PAIN IN ABDOMEN AND ABDOMINAL SWELLING AND STARTED VOMITTING. HE STATES THAT ABOUT 30 MINUTES AGO HE STARTED HAVING TINGLING IN BOTH ARMS ALL THE WAY DOWN TO HIS HANDS. Reviewed Nurses Notes Review: Yes Source History Provided: Patient Mode of Arrival Mode of Arrival: Ambulatory Timing Onset of Chief Complaint: 05/26/21 Came on: Suddenly Duration Duration: Since Onset Quality Quality: Squeezing and Aching Severity Severity: Moderate Modifying Factors Worsens: Nothing and Position PMH PMH Past Medical History: Yes Past Medical History: Hypertension Past Medical History Comment: SBO, AAA Past Surgical History: Yes Surgical History: Appendectomy, Cholecystectomy and Ortho Surgery Family History History of Family Medical Conditions: Yes Family Medical History: Hypertension Social History Does patient currently use any type of tobacco product: No Have you used tobacco products in the last 12 months: No Type of Tobacco Use: None Does any household member use tobacco: No Alcohol Use: None Do you use any recreational Drugs:: No Lives With: Family Lives Where: Home Infectious screening In the last 2 months have you had wt loss of >10#?: NO Have you had fever, night sweats or hemotysis?: No Have you traveled outside the country in the last 6 months?: No Isolation: Standard ROS Review of Systems Constitutional: No Symptoms Reported Eyes: No Symptoms Reported ENTM: No Symptoms Reported Respiratoy: No Symptoms Reported Cardiovascular: Edema Gastrointestinal/Abdominal: See HPI Neurological: Other (tinling in hands bialterally ) Musculoskeletal: Back Integumentary: No Symptoms Reported Hematologic/Lymphatic: No Symptoms Reported Endocrine: No Symptoms Reported Psychiatric: No Symptoms Reported PE Vitals Vitals: Temperature 97.1 F Pulse Rate 85 Respiratory Rate 22 Blood Pressure [Right Arm] 146/66 Blood Pressure 112/67 O2 Sat by Pulse Oximetry 96 General Limitations: No Limitations General Appearance: Alert, Anxious and In Distress Head Head Exam: Normal Inspection and Atraumatic Eyes Eye exam: Normal Appearance, PERRL and EOMI ENT ENT Exam: Normal Exam, Normal Oropharynx and Mucous Membranes Moist Chest Chest Inspection: Normal Inspection and Symmetric Chest Wall Rise Respiratory Respiratory Exam: Normal Lung Sounds Bilat Respiratory Exam: Bilateral: Clear to Auscultation Cardiovascular Cardiovascular Exam: +S1 and +S2 Abdominal Exam Abdominal Exam: Normal Bowel Sounds, Tenderness and Other (protuberant ) Abdominal Tenderness: Diffuse and Moderate Extremities Extremities Exam: Normal Inspection Neurologic Neurological Exam: Alert and Oriented X3 Skin Skin Exam: Normal Color Other Exam Other Exam: neck supple hands tinel and phalen neg MDM Additional Information Additional Information Obtained From: Old Records Findings: abdominal bloating ,abdominal pain ,tingling in hands ,hx of opioid use , COURSE Treatment Treatment: labs,ct of the abdomen,IV morphie no help with pain ,iv Dilaudid ROR Labs Reviewed Laboratory Results Reviewed?: Yes Result Diagrams: 05/26/21 14:10 05/26/21 14:10 Laboratory: WBC 12.2 X10^3/uL (3.6-10.0) H 05/26/21 14:10 RBC 5.34 X10^6/uL (4.7-6.0) 05/26/21 14:10 Hgb 16.1 g/dL (13.5-18.0) 05/26/21 14:10 Hct 44.9 % (42.0-54.0) 05/26/21 14:10 MCV 84.0 fL (80.0-100.0) 05/26/21 14:10 MCH 30.2 pg (27.0-34.0) 05/26/21 14:10 MCHC 35.9 g/dL (33.0-35.0) H 05/26/21 14:10 RDW 13.5 % (11.6-16.5) 05/26/21 14:10 Plt Count 337 X10^3/uL (150.0-450.0) 05/26/21 14:10 MPV 7.3 fL (7.4-11.0) L 05/26/21 14:10 Neut % (Auto) 81.3 % (42.0-75.0) H 05/26/21 14:10 Lymph % (Auto) 13.0 % (21.0-51.0) L 05/26/21 14:10 [place] % (Auto) 4.9 % (0.0-13.0) 05/26/21 14:10 Eos % (Auto) 0.4 % (0.9-2.9) L 05/26/21 14:10 Baso % (Auto) 0.4 % (0.2-1.0) 05/26/21 14:10 Neut # (Auto) 9.9 x10^3/uL (2.2-4.8) H 05/26/21 14:10 Lymph # (Auto) 1.6 X10^3/uL (1.3-2.9) 05/26/21 14:10 [place] # (Auto) 0.6 x10^3/uL (0.3-0.8) 05/26/21 14:10 Eos # (Auto) 0.1 x10^3/uL (0.0-0.2) 05/26/21 14:10 Baso # (Auto) 0.0 X10^3/uL (0.0-0.1) 05/26/21 14:10 Absolute Nucleated RBC 0.3 /100WBC 05/26/21 14:10 Sodium 139 mmol/L (136-145) 05/26/21 14:10 Corrected Sodium 140 mmol/L (136-145) 05/26/21 14:10 Potassium 3.0 mmol/L (3.5-5.1) L 05/26/21 14:10 Chloride 102 mmol/L (98-107) 05/26/21 14:10 Carbon Dioxide 22.6 mmol/L (21-32) 05/26/21 14:10 BUN 16 mg/dL (7-18) 05/26/21 14:10 Creatinine 1.15 mg/dL (0.70-1.30) 05/26/21 14:10 Est GFR (MDRD) Af Amer > 60 (>60) 05/26/21 14:10 Est GFR (MDRD) Non-Af > 60 (>60) 05/26/21 14:10 Glucose 131 mg/dL (65-99) H 05/26/21 14:10 Calcium 9.3 mg/dL (8.5-10.1) 05/26/21 14:10 Corrected Calcium TNP 05/26/21 14:10 Total Bilirubin 1.50 mg/dL (0.2-1.0) H 05/26/21 14:10 AST 20 Units/L (15-37) 05/26/21 14:10 ALT 27 Units/L (12-78) 05/26/21 14:10 Alkaline Phosphatase 94 Units/L (46-116) 05/26/21 14:10 Creatine Kinase 120 Units/L (39-308) 05/26/21 14:10 CK-MB (CK-2) < 1.0 ng/mL (0-4.0) 05/26/21 14:10 CK/CKMB % Calc 0.8 % (<4) 05/26/21 14:10 Troponin I High Sens 9.1 ng/L (4.0-60.0) 05/26/21 14:10 Total Protein 7.2 g/dL (6.4-8.2) 05/26/21 14:10 Albumin 4.3 g/dL (3.4-5.0) 05/26/21 14:10 Globulin 2.9 g/dL (2.5-4.5) 05/26/21 14:10 Albumin/Globulin Ratio 1.5 Ratio (1.1-2.1) 05/26/21 14:10 Amylase 24 Units/L (25-115) L 05/26/21 14:10 Lipase 51 Units/L (73-393) L 05/26/21 14:10 TSH 3rd Generation 1.578 uIU/mL (0.358-3.74) 05/26/21 14:10 SARS-CoV-2 (PCR) Negative (NEGATIVE) 05/26/21 17:15 Other Results Comments: ct of abdomen reviewed Opioid Opioid Risk Tool Age (Jun box if 16-45): No History of Preadolescent Sexual Abuse: No Total: 0 Total Score Risk Category: Low Risk Copyright: Harris DOWNEY predicting aberrant behaviors Diagnosis Discharge Problem: Mechanical obstruction of the intestine, Constipation due to opioid therapy, Dilated bowel, Acute hypokalemia Hypertension Qualifiers: Hypertension type: primary hypertension Qualified Code(s): I10 - Essential (primary) hypertension Hyperlipidemia Qualifiers: Hyperlipidemia type: mixed hyperlipidemia Qualified Code(s): E78.2 - Mixed hyperlipidemia Instructions Forms: Precautions for COVID19 [facility] Patient Portal Social Distancing ADDITIONAL NOTES Additional Notes Additional Notes: potassium supplement ,IV fluids ,NPO ,spoke with Dr Webster .Agreed to accept patient for admission
[2021-05-26] MEDS ORDERED: NS 1,000 ML IV 1,000 ML ONE ×2 (15:43→16:47)
[2021-05-26] MEDS ORDERED: ZOFRAN INJ 4 MG VIAL ONE (15:43)
[2021-05-26] MEDS ORDERED: MORPHINE SULFATE INJ 2 MG INJ ONE (15:43)
[2021-05-26] MEDS ORDERED: ZOFRAN INJ 4 MG VIAL IVP ONE (15:47)
[2021-05-26] MEDS ORDERED: MORPHINE SULFATE INJ 2 MG INJ IVP ONE (15:47)
[2021-05-26] MEDS ORDERED: NS 1,000 ML IV 1,000 ML IV ONE ×2 (15:48→16:36)
[2021-05-26] MEDS ORDERED: POTASSIUM CHLORIDE LIQ 20 MEQ UDC PO ONE (16:37)
[2021-05-26] MEDS ORDERED: POTASSIUM CHLORIDE LIQ 20 MEQ UDC ONE (16:47)
[2021-05-26] MEDS ORDERED: DILAUDID INJ ONE (17:12)
[2021-05-26] MEDS ORDERED: DILAUDID INJ IVP ONE ×2 (17:13→17:17)
[2021-05-26] MEDS ORDERED: K-DUR TAB 20 MEQ PO ONE (19:31)
[2021-05-26] MEDS ORDERED: NS 250 ML IV 250 ML IV SCH (19:31)
[2021-05-26] MEDS: ZOFRAN INJ 4 MG VIAL IVP PRN (20:47)
[2021-05-26] MEDS: NS 1,000 ML IV 1,000 ML IV SCH (21:20)
[2021-05-26] MEDS: NORCO 10/325 TAB PO PRN (21:31)
[2021-05-26] MEDS ORDERED: NS IV SCH (22:00)
[2021-05-27] MEDS: NS 1,000 ML IV 1,000 ML IV SCH ×5 (03:37→21:02)
[2021-05-27 04:53] LABS: ALANINE AMINOTRANSFERASE 62 Units/L (12-78); ALBUMIN 2.9 g/dL (3.4-5.0); ALKALINE PHOSPHATASE 83 Units/L (46-116); ASPARTATE AMINO TRANSFERASE 45 Units/L (15-37); BLOOD UREA NITROGEN 12 mg/dL (7-18); CALCIUM 7.4 mg/dL (8.5-10.1); CHLORIDE 109 mmol/L (98-107); COR CA(FOR HYPOALB) 8.3 mg/dL (8.5-10.1); CREATININE 0.82 mg/dL (0.70-1.30); SODIUM 141 mmol/L (136-145); TOTAL PROTEIN 5.2 g/dL (6.4-8.2); eGFR NON BLACK RACES > 60 (>60)
[2021-05-27 05:05] LABS: BASOPHILS % (AUTO) 0.2 % (0.2-1.0); EOSINOPHILS # (AUTO) 0.1 x10^3/uL (0.0-0.2); EOSINOPHILS % (AUTO) 1.8 % (0.9-2.9); HEMATOCRIT 36.5 % (42.0-54.0); HEMOGLOBIN 13.1 g/dL (13.5-18.0); LYMPHOCYTES # (AUTO) 1.3 X10^3/uL (1.3-2.9); MEAN CORPUSCULAR HEMOGLOBIN 30.5 pg (27.0-34.0); MEAN CORPUSCULAR HGB CONC 35.8 g/dL (33.0-35.0); MEAN CORPUSCULAR VOLUME 85.1 fL (80.0-100.0); MEAN PLATELET VOLUME 7.3 fL (7.4-11.0); MONOCYTES # (AUTO) 0.5 x10^3/uL (0.3-0.8); MONOCYTES % (AUTO) 8.4 % (0.0-13.0); NEUTROPHILS % (AUTO) 67.6 % (42.0-75.0); RED BLOOD COUNT 4.29 X10^6/uL (4.7-6.0); RED CELL DISTRIBUTION WIDTH 13.5 % (11.6-16.5); WHITE BLOOD COUNT 5.9 X10^3/uL (3.6-10.0)
[2021-05-27] MEDS: NORCO 10/325 TAB PO PRN (05:22)
[2021-05-27] MEDS: ZOFRAN INJ 4 MG VIAL IVP PRN (05:22)
--- NOTE | 2021-05-27 07:17 | RAD ---
HISTORYBowel obstructionSTUDYKUBCOMPARISONCT abdomen May 26, 2021FINDINGSThere is selective moderate gaseous dilatation of multiple small bowel segments in the mid abdomen. There is paucity of colon gas. No mass formation or abnormal calcification noted.IMPRESSIONSelective small-bowel dilatation consistent with ileus/enteritis or developing small bowel obstruction. Continued follow-up suggested.Electronically signed by: LEONARDO BOB (May 27, 2021 07:16:23)
[2021-05-27] MEDS ORDERED: LINZESS PO SCH (09:00)
[2021-05-27] MEDS: PLAVIX PO SCH (09:15)
[2021-05-27] MEDS: MORPHINE SULFATE INJ 4 MG IM PRN (11:58)
[2021-05-27] MEDS: PHENERGAN INJ 25 MG IM PRN (11:59)
[2021-05-27] MEDS ORDERED: POTASSIUM CHL 60 MEQ/NS 0.45% 500 ML IV PRN (14:46)
[2021-05-27] MEDS ORDERED: MICRO K EXTEN CAP 10 MEQ PO PRN (14:46)
[2021-05-27] MEDS ORDERED: POTASSIUM CHLORIDE LIQ 20 MEQ UDC PO PRN (14:46)
[2021-05-27] MEDS ORDERED: KLOR-CON PO PRN (14:46)
[2021-05-27] MEDS ORDERED: POTASSIUM CHL 40 MEQ/NS 0.45% 500 ML IV PRN (14:46)
[2021-05-27] MEDS: K-DUR TAB 20 MEQ PO PRN (16:24)
[2021-05-27 20:38] VITALS: BMI 35.6
[2021-05-28] MEDS: MORPHINE SULFATE INJ 4 MG IM PRN ×4 (02:33→16:20)
[2021-05-28] MEDS: NS 1,000 ML IV 1,000 ML IV SCH ×4 (02:33→19:40)
[2021-05-28] MEDS: PHENERGAN INJ 25 MG IM PRN ×4 (02:33→16:19)
[2021-05-28 04:45] LABS: BASOPHILS % (AUTO) 0.2 % (0.2-1.0); EOSINOPHILS # (AUTO) 0.1 x10^3/uL (0.0-0.2); EOSINOPHILS % (AUTO) 1.8 % (0.9-2.9); HEMATOCRIT 36.3 % (42.0-54.0); HEMOGLOBIN 12.8 g/dL (13.5-18.0); LYMPHOCYTES # (AUTO) 1.3 X10^3/uL (1.3-2.9); LYMPHOCYTES % (AUTO) 16.8 % (21.0-51.0); MEAN CORPUSCULAR HEMOGLOBIN 30.3 pg (27.0-34.0); MEAN CORPUSCULAR HGB CONC 35.2 g/dL (33.0-35.0); MEAN CORPUSCULAR VOLUME 85.9 fL (80.0-100.0); MEAN PLATELET VOLUME 7.4 fL (7.4-11.0); MONOCYTES # (AUTO) 0.6 x10^3/uL (0.3-0.8); MONOCYTES % (AUTO) 7.3 % (0.0-13.0); NEUTROPHILS # (AUTO) 5.6 x10^3/uL (2.2-4.8); NEUTROPHILS % (AUTO) 73.9 % (42.0-75.0); RED BLOOD COUNT 4.22 X10^6/uL (4.7-6.0); RED CELL DISTRIBUTION WIDTH 13.1 % (11.6-16.5); WHITE BLOOD COUNT 7.5 X10^3/uL (3.6-10.0)
[2021-05-28 05:02] LABS: ALANINE AMINOTRANSFERASE 79 Units/L (12-78); ALBUMIN 2.9 g/dL (3.4-5.0); ALKALINE PHOSPHATASE 96 Units/L (46-116); ASPARTATE AMINO TRANSFERASE 45 Units/L (15-37); BLOOD UREA NITROGEN 7 mg/dL (7-18); CALCIUM 7.7 mg/dL (8.5-10.1); CARBON DIOXIDE 25.3 mmol/L (21-32); CHLORIDE 107 mmol/L (98-107); COR CA(FOR HYPOALB) 8.6 mg/dL (8.5-10.1); SODIUM 140 mmol/L (136-145); TOTAL PROTEIN 5.3 g/dL (6.4-8.2); eGFR NON BLACK RACES > 60 (>60)
--- NOTE | 2021-05-28 07:33 | RAD ---
HISTORYPain ileusSTUDYAbdomen series with PA chest three viewsCOMPARISONKUB 05/27/2021FINDINGSPA chest: Normal except for linear atelectasis right lower lobe.Abdomen series: Supine and erect views demonstrate gas noted within nondilated colon. There is no significant small bowel dilatation, free air, mass formation or ascites. Surgical clips right upper quadrant.IMPRESSIONNo acute findings identified in chest or abdomen. There is now no suggestion of significant small-bowel ileus or obstruction.Electronically signed by: LEONARDO BOB (May 28, 2021 07:32:54)
[2021-05-28] MEDS: PLAVIX PO SCH (08:44)
[2021-05-28] MEDS: PROTONIX INJ 40 MG VIAL IVP SCH (16:40)
--- NOTE | 2021-05-28 23:09 | PCM.PROG ---
Progress Note - Subjective Subjective: Patient is a 51 year old male who was admitted due to abdominal pain vs sbo. Patient denies vomiting in the past 24 hours. Patient does report nausea. States he did have a liquid BM today; describes substance as very watery. No new concerns at present. Pending sbo resolution; general surgery consulted. - Past Medical Family Social History Past Med/Fam/Surg Hx: No changes since H&P Allergies: Allergies No Known Drug Allergies [NKDA] Allergy (Verified 10/22/19 18:33) - Review of Systems ROS: No change since H&P - Vital Signs and I&O's Vital Signs: Temperature 98.7 F Pulse Rate [Left Brachial] 75 Pulse Rate 82 Respiratory Rate 20 Blood Pressure [Left Arm] 154/86 Blood Pressure [Right Arm] 136/78 Blood Pressure 118/88 O2 Sat by Pulse Oximetry 95 Intake and Output: Intake & Output 05/25/21 05/26/21 05/27/21 05/28/21 23:59 23:59 23:59 23:59 Intake Total 0 / 0 1750 / 1750 0 / 0 Balance 0 / 0 1750 / 1750 0 / 0 - Physical Exam Oriented: Normal, Time, Person, Place Eyes: Normal Ear: Normal Nose: Normal Throat: Normal Respiratory: Normal Cardiovascular: Normal : Normal Auscultation: Bowel Sounds: Decreased Palpation: Normal Tenderness: Diffuse, Moderate Skin: Normal Musculoskeletal: Normal Psychiatric: Normal Mood Description: Calm Affect: Normal Speech Pattern: Clear, Appropriate - Laboratory and Diagnostics Result Diagrams: 05/28/21 04:05 05/28/21 04:05 Labs: Laboratory WBC 7.5 X10^3/uL (3.6-10.0) 05/28/21 04:05 RBC 4.22 X10^6/uL (4.7-6.0) L 05/28/21 04:05 Hgb 12.8 g/dL (13.5-18.0) L 05/28/21 04:05 Hct 36.3 % (42.0-54.0) L 05/28/21 04:05 MCV 85.9 fL (80.0-100.0) 05/28/21 04:05 MCH 30.3 pg (27.0-34.0) 05/28/21 04:05 MCHC 35.2 g/dL (33.0-35.0) H 05/28/21 04:05 RDW 13.1 % (11.6-16.5) 05/28/21 04:05 Plt Count 224 X10^3/uL (150.0-450.0) 05/28/21 04:05 MPV 7.4 fL (7.4-11.0) 05/28/21 04:05 Neut % (Auto) 73.9 % (42.0-75.0) 05/28/21 04:05 Lymph % (Auto) 16.8 % (21.0-51.0) L 05/28/21 04:05 [place] % (Auto) 7.3 % (0.0-13.0) 05/28/21 04:05 Eos % (Auto) 1.8 % (0.9-2.9) 05/28/21 04:05 Baso % (Auto) 0.2 % (0.2-1.0) 05/28/21 04:05 Neut # (Auto) 5.6 x10^3/uL (2.2-4.8) H 05/28/21 04:05 Lymph # (Auto) 1.3 X10^3/uL (1.3-2.9) 05/28/21 04:05 [place] # (Auto) 0.6 x10^3/uL (0.3-0.8) 05/28/21 04:05 Eos # (Auto) 0.1 x10^3/uL (0.0-0.2) 05/28/21 04:05 Baso # (Auto) 0.0 X10^3/uL (0.0-0.1) 05/28/21 04:05 Absolute Nucleated RBC 0.0 /100WBC 05/28/21 04:05 Sodium 140 mmol/L (136-145) 05/28/21 04:05 Corrected Sodium TNP 05/28/21 04:05 Potassium 3.1 mmol/L (3.5-5.1) L 05/28/21 04:05 Chloride 107 mmol/L (98-107) 05/28/21 04:05 Carbon Dioxide 25.3 mmol/L (21-32) 05/28/21 04:05 BUN 7 mg/dL (7-18) 05/28/21 04:05 Creatinine 0.80 mg/dL (0.70-1.30) 05/28/21 04:05 Est GFR (MDRD) Af Amer > 60 (>60) 05/28/21 04:05 Est GFR (MDRD) Non-Af > 60 (>60) 05/28/21 04:05 Glucose 84 mg/dL (65-99) 05/28/21 04:05 Calcium 7.7 mg/dL (8.5-10.1) L 05/28/21 04:05 Corrected Calcium 8.6 mg/dL (8.5-10.1) 05/28/21 04:05 Magnesium 2.0 mg/dL (1.7-2.9) 05/28/21 04:05 Total Bilirubin 1.00 mg/dL (0.2-1.0) 05/28/21 04:05 AST 45 Units/L (15-37) H 05/28/21 04:05 ALT 79 Units/L (12-78) H 05/28/21 04:05 Alkaline Phosphatase 96 Units/L (46-116) 05/28/21 04:05 Creatine Kinase 120 Units/L (39-308) 05/26/21 14:10 CK-MB (CK-2) < 1.0 ng/mL (0-4.0) 05/26/21 14:10 CK/CKMB % Calc 0.8 % (<4) 05/26/21 14:10 Troponin I High Sens 9.1 ng/L (4.0-60.0) 05/26/21 14:10 Total Protein 5.3 g/dL (6.4-8.2) L 05/28/21 04:05 Albumin 2.9 g/dL (3.4-5.0) L 05/28/21 04:05 Globulin 2.4 g/dL (2.5-4.5) L 05/28/21 04:05 Albumin/Globulin Ratio 1.2 Ratio (1.1-2.1) 05/28/21 04:05 Amylase 24 Units/L (25-115) L 05/26/21 14:10 Lipase 51 Units/L (73-393) L 05/26/21 14:10 TSH 3rd Generation 1.578 uIU/mL (0.358-3.74) 05/26/21 14:10 Urine Opiates Screen Positive (NEG=<300) 05/26/21 20:14 Urine Methadone Screen Negative (NEG=<300) 05/26/21 20:14 Ur Barbiturates Screen Negative (NEG=<200) 05/26/21 20:14 Ur Phencyclidine Scrn Negative (NEG=<25) 05/26/21 20:14 Ur Amphetamines Screen Negative (NEG=<1000) 05/26/21 20:14 U Benzodiazepines Scrn Negative (NEG=<200) 05/26/21 20:14 Urine Cocaine Screen Negative (NEG=<300) 05/26/21 20:14 U Marijuana (THC) Screen Negative (NEG=<50) 05/26/21 20:14 SARS-CoV-2 (PCR) Negative (NEGATIVE) 05/26/21 17:15 - Plan (1) Nausea Status: Acute Plan: Nausea and pain control. Pending BM. Repeat labs in am (2) SBO (small bowel obstruction) Status: Acute (3) Abdominal pain Status: Acute Qualifiers: Abdominal location: generalized Qualified Code(s): R10.84 - Generalized abdominal pain (4) Constipation due to opioid therapy Status: Chronic (5) History of small bowel obstruction Status: Chronic
[2021-05-29] MEDS: PHENERGAN INJ 25 MG IM PRN (00:39)
[2021-05-29] MEDS: MORPHINE SULFATE INJ 4 MG IM PRN ×3 (00:39→21:24)
[2021-05-29] MEDS: NS 1,000 ML IV 1,000 ML IV SCH ×5 (01:50→20:33)
[2021-05-29 04:39] LABS: BASOPHILS % (AUTO) 0.3 % (0.2-1.0); EOSINOPHILS # (AUTO) 0.2 x10^3/uL (0.0-0.2); EOSINOPHILS % (AUTO) 2.4 % (0.9-2.9); HEMATOCRIT 38.4 % (42.0-54.0); HEMOGLOBIN 13.8 g/dL (13.5-18.0); LYMPHOCYTES % (AUTO) 15.8 % (21.0-51.0); MEAN CORPUSCULAR HEMOGLOBIN 30.3 pg (27.0-34.0); MEAN CORPUSCULAR HGB CONC 35.9 g/dL (33.0-35.0); MEAN CORPUSCULAR VOLUME 84.3 fL (80.0-100.0); MEAN PLATELET VOLUME 7.2 fL (7.4-11.0); MONOCYTES # (AUTO) 0.5 x10^3/uL (0.3-0.8); MONOCYTES % (AUTO) 7.8 % (0.0-13.0); NEUTROPHILS # (AUTO) 4.8 x10^3/uL (2.2-4.8); NEUTROPHILS % (AUTO) 73.7 % (42.0-75.0); RED BLOOD COUNT 4.56 X10^6/uL (4.7-6.0); RED CELL DISTRIBUTION WIDTH 13.3 % (11.6-16.5); WHITE BLOOD COUNT 6.5 X10^3/uL (3.6-10.0)
[2021-05-29 04:47] LABS: ALANINE AMINOTRANSFERASE 66 Units/L (12-78); ALBUMIN 3.2 g/dL (3.4-5.0); ALKALINE PHOSPHATASE 107 Units/L (46-116); AMYLASE 18 Units/L (25-115); ASPARTATE AMINO TRANSFERASE 28 Units/L (15-37); BLOOD UREA NITROGEN 6 mg/dL (7-18); CALCIUM 8.2 mg/dL (8.5-10.1); CARBON DIOXIDE 22.7 mmol/L (21-32); CHLORIDE 104 mmol/L (98-107); COR CA(FOR HYPOALB) 8.8 mg/dL (8.5-10.1); CREATININE 0.73 mg/dL (0.70-1.30); LIPASE 33 Units/L (73-393); SODIUM 138 mmol/L (136-145); TOTAL PROTEIN 5.9 g/dL (6.4-8.2); eGFR NON BLACK RACES > 60 (>60)
[2021-05-29] MEDS: K-RIDER 10 MEQ/NS 100 ML 10 MEQ/100 ML BAG IV PRN ×5 (05:17→23:10)
--- NOTE | 2021-05-29 05:59 | RAD ---
PROCEDURE: Abdomen X-ray 1 View .HISTORY: ABDOMINAL PAIN; MECHANICAL OBSTRUCTION .TECHNIQUE: AP supine abdomen view .COMPARISON: 05/28/2021.TECHNICAL QUALITY: Satisfactory .FINDINGS:Scattered gas and feces in the colon without distention. No obstruction or ileus.No organomegaly.No abnormal calcifications.No bony abnormality.IMPRESSION:Nonspecific bowel-gas pattern.Electronically signed by: Cooper Orellana (May 29, 2021 05:59:06)
[2021-05-29] MEDS: PROTONIX INJ 40 MG VIAL IVP SCH (09:15)
[2021-05-29] MEDS: PLAVIX PO SCH (09:15)
--- NOTE | 2021-05-29 09:37 | DR.PROGNOT ---
Hospital Progress Notes - Progress Note for Day of: Progress Note Date: 05/29/21 - Chief Complaint Chief Complaint: less abdominal pain .. no nausea or vomiting .. KUB showed kelvin SBO now . afebrile .. - Past Medical Family Social History Past Med/Fam/Surg Hx: No changes since H&P Allergies: Allergies No Known Drug Allergies [NKDA] Allergy (Verified 10/22/19 18:33) - Review Of Systems ROS: No change since H&P - Vital Signs Vital Signs: Temperature 98.4 F Pulse Rate [Left Brachial] 79 Pulse Rate 82 Respiratory Rate 18 Blood Pressure [Left Arm] 139/85 Blood Pressure [Right Arm] 136/78 Blood Pressure 118/88 O2 Sat by Pulse Oximetry 96 - Physical Exam Oriented: Normal, Time, Person, Place Eyes: Normal Ear: Normal Nose: Normal Throat: Normal Respiratory: Normal Cardiovascular: Normal : Normal GI:Auscultation: Decreased GI:Palpation: Normal GI: Tenderness: Diffuse (soft , flat abdomen with mild Lt side tenderness .. BS+), Moderate Skin: Normal Musculoskeletal: Normal Psychiatric: Normal Mood Description: Calm Affect: Normal Speech Pattern: Clear, Appropriate - Laboratory and Diagnostics Result Diagrams: 05/29/21 04:00 05/29/21 04:00 Labs: Laboratory WBC 6.5 X10^3/uL (3.6-10.0) 05/29/21 04:00 RBC 4.56 X10^6/uL (4.7-6.0) L 05/29/21 04:00 Hgb 13.8 g/dL (13.5-18.0) 05/29/21 04:00 Hct 38.4 % (42.0-54.0) L 05/29/21 04:00 MCV 84.3 fL (80.0-100.0) 05/29/21 04:00 MCH 30.3 pg (27.0-34.0) 05/29/21 04:00 MCHC 35.9 g/dL (33.0-35.0) H 05/29/21 04:00 RDW 13.3 % (11.6-16.5) 05/29/21 04:00 Plt Count 252 X10^3/uL (150.0-450.0) 05/29/21 04:00 MPV 7.2 fL (7.4-11.0) L 05/29/21 04:00 Neut % (Auto) 73.7 % (42.0-75.0) 05/29/21 04:00 Lymph % (Auto) 15.8 % (21.0-51.0) L 05/29/21 04:00 [place] % (Auto) 7.8 % (0.0-13.0) 05/29/21 04:00 Eos % (Auto) 2.4 % (0.9-2.9) 05/29/21 04:00 Baso % (Auto) 0.3 % (0.2-1.0) 05/29/21 04:00 Neut # (Auto) 4.8 x10^3/uL (2.2-4.8) 05/29/21 04:00 Lymph # (Auto) 1.0 X10^3/uL (1.3-2.9) L 05/29/21 04:00 [place] # (Auto) 0.5 x10^3/uL (0.3-0.8) 05/29/21 04:00 Eos # (Auto) 0.2 x10^3/uL (0.0-0.2) 05/29/21 04:00 Baso # (Auto) 0.0 X10^3/uL (0.0-0.1) 05/29/21 04:00 Absolute Nucleated RBC 0.1 /100WBC 05/29/21 04:00 Sodium 138 mmol/L (136-145) 05/29/21 04:00 Corrected Sodium TNP 05/29/21 04:00 Potassium 3.1 mmol/L (3.5-5.1) L 05/29/21 04:00 Chloride 104 mmol/L (98-107) 05/29/21 04:00 Carbon Dioxide 22.7 mmol/L (21-32) 05/29/21 04:00 BUN 6 mg/dL (7-18) L 05/29/21 04:00 Creatinine 0.73 mg/dL (0.70-1.30) 05/29/21 04:00 Est GFR (MDRD) Af Amer > 60 (>60) 05/29/21 04:00 Est GFR (MDRD) Non-Af > 60 (>60) 05/29/21 04:00 Glucose 76 mg/dL (65-99) 05/29/21 04:00 Calcium 8.2 mg/dL (8.5-10.1) L 05/29/21 04:00 Corrected Calcium 8.8 mg/dL (8.5-10.1) 05/29/21 04:00 Magnesium 2.0 mg/dL (1.7-2.9) 05/28/21 04:05 Total Bilirubin 1.10 mg/dL (0.2-1.0) H 05/29/21 04:00 AST 28 Units/L (15-37) 05/29/21 04:00 ALT 66 Units/L (12-78) 05/29/21 04:00 Alkaline Phosphatase 107 Units/L (46-116) 05/29/21 04:00 Creatine Kinase 120 Units/L (39-308) 05/26/21 14:10 CK-MB (CK-2) < 1.0 ng/mL (0-4.0) 05/26/21 14:10 CK/CKMB % Calc 0.8 % (<4) 05/26/21 14:10 Troponin I High Sens 9.1 ng/L (4.0-60.0) 05/26/21 14:10 Total Protein 5.9 g/dL (6.4-8.2) L 05/29/21 04:00 Albumin 3.2 g/dL (3.4-5.0) L 05/29/21 04:00 Globulin 2.7 g/dL (2.5-4.5) 05/29/21 04:00 Albumin/Globulin Ratio 1.2 Ratio (1.1-2.1) 05/29/21 04:00 Amylase 18 Units/L (25-115) L 05/29/21 04:00 Lipase 33 Units/L (73-393) L 05/29/21 04:00 TSH 3rd Generation 1.578 uIU/mL (0.358-3.74) 05/26/21 14:10 Urine Opiates Screen Positive (NEG=<300) 05/26/21 20:14 Urine Methadone Screen Negative (NEG=<300) 05/26/21 20:14 Ur Barbiturates Screen Negative (NEG=<200) 05/26/21 20:14 Ur Phencyclidine Scrn Negative (NEG=<25) 05/26/21 20:14 Ur Amphetamines Screen Negative (NEG=<1000) 05/26/21 20:14 U Benzodiazepines Scrn Negative (NEG=<200) 05/26/21 20:14 Urine Cocaine Screen Negative (NEG=<300) 05/26/21 20:14 U Marijuana (THC) Screen Negative (NEG=<50) 05/26/21 20:14 SARS-CoV-2 (PCR) Negative (NEGATIVE) 05/26/21 17:15 - Assessment and Plan 1: resolving partial SBO .. to advance diet . increase K supplement . possibl e D/C tomorrow .. - Problem Patient Problems: Patient Problems SBO (small bowel obstruction) (Acute) K56.609 Abdominal pain (Acute) R10.9 Mechanical obstruction of the intestine (Acute) K56.609 Constipation due to opioid therapy (Chronic) K59.03, T40.2X5A Dilated bowel (Acute) Acute hypokalemia (Acute) E87.6 Nausea (Acute) R11.0 Hypertension (Chronic) I10 Hyperlipidemia (Chronic) E78.5 History of small bowel obstruction (Chronic) Z87.19
[2021-05-29] MEDS: NORCO 10/325 TAB PO PRN ×2 (11:45→23:14)
--- NOTE | 2021-05-29 21:04 | PCM.PROG ---
Progress Note - Subjective Subjective: Patient is a 51 year old male who was admitted due to abdominal pain vs sbo. Patient denies vomiting in the past 24 hours. Patient does report minimal nausea. No new concerns at present. Diet advanced and patient tolerating well. - Past Medical Family Social History Past Med/Fam/Surg Hx: No changes since H&P Allergies: Allergies No Known Drug Allergies [NKDA] Allergy (Verified 10/22/19 18:33) - Review of Systems ROS: No change since H&P - Vital Signs and I&O's Vital Signs: Temperature 98.3 F Pulse Rate [Left Brachial] 73 Pulse Rate 82 Respiratory Rate 20 Blood Pressure [Left Arm] 133/79 Blood Pressure [Right Arm] 136/78 Blood Pressure 118/88 O2 Sat by Pulse Oximetry 98 Intake and Output: Intake & Output 05/26/21 05/27/21 05/28/21 05/29/21 23:59 23:59 23:59 23:59 Intake Total 0 / 0 1750 / 1750 1000 / 1000 1480 / 1480 Balance 0 / 0 1750 / 1750 1000 / 1000 1480 / 1480 - Physical Exam Oriented: Normal, Time, Person, Place Eyes: Normal Ear: Normal Nose: Normal Throat: Normal Respiratory: Normal Cardiovascular: Normal : Normal Auscultation: Bowel Sounds: Decreased Tenderness: Diffuse (soft , flat abdomen with mild Lt side tenderness .. BS+), Moderate Skin: Normal Musculoskeletal: Normal Psychiatric: Normal Mood Description: Calm Affect: Normal Speech Pattern: Clear, Appropriate - Laboratory and Diagnostics Result Diagrams: 05/29/21 04:00 05/29/21 19:00 Labs: Laboratory WBC 6.5 X10^3/uL (3.6-10.0) 05/29/21 04:00 RBC 4.56 X10^6/uL (4.7-6.0) L 05/29/21 04:00 Hgb 13.8 g/dL (13.5-18.0) 05/29/21 04:00 Hct 38.4 % (42.0-54.0) L 05/29/21 04:00 MCV 84.3 fL (80.0-100.0) 05/29/21 04:00 MCH 30.3 pg (27.0-34.0) 05/29/21 04:00 MCHC 35.9 g/dL (33.0-35.0) H 05/29/21 04:00 RDW 13.3 % (11.6-16.5) 05/29/21 04:00 Plt Count 252 X10^3/uL (150.0-450.0) 05/29/21 04:00 MPV 7.2 fL (7.4-11.0) L 05/29/21 04:00 Neut % (Auto) 73.7 % (42.0-75.0) 05/29/21 04:00 Lymph % (Auto) 15.8 % (21.0-51.0) L 05/29/21 04:00 [place] % (Auto) 7.8 % (0.0-13.0) 05/29/21 04:00 Eos % (Auto) 2.4 % (0.9-2.9) 05/29/21 04:00 Baso % (Auto) 0.3 % (0.2-1.0) 05/29/21 04:00 Neut # (Auto) 4.8 x10^3/uL (2.2-4.8) 05/29/21 04:00 Lymph # (Auto) 1.0 X10^3/uL (1.3-2.9) L 05/29/21 04:00 [place] # (Auto) 0.5 x10^3/uL (0.3-0.8) 05/29/21 04:00 Eos # (Auto) 0.2 x10^3/uL (0.0-0.2) 05/29/21 04:00 Baso # (Auto) 0.0 X10^3/uL (0.0-0.1) 05/29/21 04:00 Absolute Nucleated RBC 0.1 /100WBC 05/29/21 04:00 Sodium 138 mmol/L (136-145) 05/29/21 04:00 Corrected Sodium TNP 05/29/21 04:00 Potassium 3.3 mmol/L (3.5-5.1) L 05/29/21 19:00 Chloride 104 mmol/L (98-107) 05/29/21 04:00 Carbon Dioxide 22.7 mmol/L (21-32) 05/29/21 04:00 BUN 6 mg/dL (7-18) L 05/29/21 04:00 Creatinine 0.73 mg/dL (0.70-1.30) 05/29/21 04:00 Est GFR (MDRD) Af Amer > 60 (>60) 05/29/21 04:00 Est GFR (MDRD) Non-Af > 60 (>60) 05/29/21 04:00 Glucose 76 mg/dL (65-99) 05/29/21 04:00 Calcium 8.2 mg/dL (8.5-10.1) L 05/29/21 04:00 Corrected Calcium 8.8 mg/dL (8.5-10.1) 05/29/21 04:00 Magnesium 2.0 mg/dL (1.7-2.9) 05/28/21 04:05 Total Bilirubin 1.10 mg/dL (0.2-1.0) H 05/29/21 04:00 AST 28 Units/L (15-37) 05/29/21 04:00 ALT 66 Units/L (12-78) 05/29/21 04:00 Alkaline Phosphatase 107 Units/L (46-116) 05/29/21 04:00 Creatine Kinase 120 Units/L (39-308) 05/26/21 14:10 CK-MB (CK-2) < 1.0 ng/mL (0-4.0) 05/26/21 14:10 CK/CKMB % Calc 0.8 % (<4) 05/26/21 14:10 Troponin I High Sens 9.1 ng/L (4.0-60.0) 05/26/21 14:10 Total Protein 5.9 g/dL (6.4-8.2) L 05/29/21 04:00 Albumin 3.2 g/dL (3.4-5.0) L 05/29/21 04:00 Globulin 2.7 g/dL (2.5-4.5) 05/29/21 04:00 Albumin/Globulin Ratio 1.2 Ratio (1.1-2.1) 05/29/21 04:00 Amylase 18 Units/L (25-115) L 05/29/21 04:00 Lipase 33 Units/L (73-393) L 05/29/21 04:00 TSH 3rd Generation 1.578 uIU/mL (0.358-3.74) 05/26/21 14:10 Urine Opiates Screen Positive (NEG=<300) 05/26/21 20:14 Urine Methadone Screen Negative (NEG=<300) 05/26/21 20:14 Ur Barbiturates Screen Negative (NEG=<200) 05/26/21 20:14 Ur Phencyclidine Scrn Negative (NEG=<25) 05/26/21 20:14 Ur Amphetamines Screen Negative (NEG=<1000) 05/26/21 20:14 U Benzodiazepines Scrn Negative (NEG=<200) 05/26/21 20:14 Urine Cocaine Screen Negative (NEG=<300) 05/26/21 20:14 U Marijuana (THC) Screen Negative (NEG=<50) 05/26/21 20:14 SARS-CoV-2 (PCR) Negative (NEGATIVE) 05/26/21 17:15 - Plan (1) Nausea Status: Acute Plan: Nausea and pain control. Pending BM. Repeat labs in am (2) SBO (small bowel obstruction) Status: Acute Plan: ruled out (3) Abdominal pain Status: Acute Qualifiers: Abdominal location: generalized Qualified Code(s): R10.84 - Generalized abdominal pain (4) Constipation due to opioid therapy Status: Chronic (5) History of small bowel obstruction Status: Chronic (6) Ileus Status: Acute
[2021-05-29] MEDS: ZOFRAN INJ 4 MG VIAL IVP PRN (21:24)
[2021-05-30] MEDS: MORPHINE SULFATE INJ 4 MG IM PRN ×2 (01:34→13:41)
[2021-05-30] MEDS: NS 1,000 ML IV 1,000 ML IV SCH ×2 (03:49→13:10)
[2021-05-30 04:35] LABS: BASOPHILS % (AUTO) 0.2 % (0.2-1.0); EOSINOPHILS # (AUTO) 0.2 x10^3/uL (0.0-0.2); EOSINOPHILS % (AUTO) 2.9 % (0.9-2.9); HEMATOCRIT 38.4 % (42.0-54.0); HEMOGLOBIN 13.5 g/dL (13.5-18.0); LYMPHOCYTES # (AUTO) 1.1 X10^3/uL (1.3-2.9); LYMPHOCYTES % (AUTO) 17.5 % (21.0-51.0); MEAN CORPUSCULAR HEMOGLOBIN 29.8 pg (27.0-34.0); MEAN CORPUSCULAR HGB CONC 35.2 g/dL (33.0-35.0); MEAN CORPUSCULAR VOLUME 84.7 fL (80.0-100.0); MEAN PLATELET VOLUME 7.3 fL (7.4-11.0); MONOCYTES # (AUTO) 0.5 x10^3/uL (0.3-0.8); NEUTROPHILS # (AUTO) 4.5 x10^3/uL (2.2-4.8); NEUTROPHILS % (AUTO) 71.4 % (42.0-75.0); RED BLOOD COUNT 4.54 X10^6/uL (4.7-6.0); RED CELL DISTRIBUTION WIDTH 13.2 % (11.6-16.5); WHITE BLOOD COUNT 6.3 X10^3/uL (3.6-10.0)
[2021-05-30 04:46] LABS: ALANINE AMINOTRANSFERASE 47 Units/L (12-78); ALBUMIN 3.1 g/dL (3.4-5.0); ALKALINE PHOSPHATASE 101 Units/L (46-116); ASPARTATE AMINO TRANSFERASE 22 Units/L (15-37); BLOOD UREA NITROGEN 6 mg/dL (7-18); CALCIUM 8.2 mg/dL (8.5-10.1); CARBON DIOXIDE 26.1 mmol/L (21-32); CHLORIDE 105 mmol/L (98-107); COR CA(FOR HYPOALB) 8.9 mg/dL (8.5-10.1); COR NA(FOR HYPERGLY) 140 mmol/L (136-145); CREATININE 0.82 mg/dL (0.70-1.30); SODIUM 139 mmol/L (136-145); TOTAL PROTEIN 5.8 g/dL (6.4-8.2); eGFR NON BLACK RACES > 60 (>60)
[2021-05-30] MEDS: K-DUR TAB 20 MEQ PO PRN (05:28)
[2021-05-30] MEDS: PLAVIX PO SCH (08:09)
[2021-05-30] MEDS: PROTONIX INJ 40 MG VIAL IVP SCH (08:10)
[2021-05-30] MEDS: NORCO 10/325 TAB PO PRN (08:13)
[2021-05-30 11:38] VITALS: BP 138/77
--- NOTE | 2021-05-30 15:02 | RAD ---
HISTORYABD PAINSTUDYKUB x-ray one viewCOMPARISONX-ray 05/29/21FINDINGSPrior cholecystectomy. Mild small and large bowel air is likely within normal limits. No suggestion of constipation or bowel obstruction. No suspicious calcifications are seen.IMPRESSIONNegative exam.Electronically signed by: López Joseph (May 30, 2021 15:00:54)
--- NOTE | 2021-07-10 23:58 | PCM.DCPLAN ---
Discharge Plan - Discharge Plan Hospital Course: Admit date 05/26/21 Discharge date 05/30/21 DOS 05/30/21 Admit diagnosis Recurrent Small bowel obstruction Discharge diagnosis (1) Nausea (2) SBO (small bowel obstruction) (3) Abdominal pain (4) Constipation due to opioid therapy (5) History of small bowel obstruction (6) Ileus (7) Hypokalemia (8) GERD Hospital Course The patient is a 50-year-old white male who is a patient of our private practice who was admitted via the ER with complaints of abdominal pain. He has a history of reoccurring episodes of small bowel obstruction. The patient states that he had an acute onset of abdominal pain the day prior to admission. He said that he was having bloating and persistent nausea and vomiting. He vomited approximately fourteen times prior to admission with no BM. He thought that he was somewhat constipated prior to that and he has previously had a laparotomy with lysis of adhesions, as well as an appendectomy. He has also had a cholecystectomy. He was placed NPO with IV hydration and a surgical consult. As the patients pain, tenderness, and distention improved, as well as passing gas and improving GI motility, we did allow the patient to advance his diet from ice chips to clear liquids and then progress as tolerated. He did have serial repeat KUBs showing some improvement of bowel gas pattern. He was treated for chronic diseases also including hypertension and lumbar spine degenerative disc disease. The patient did have some hypokalemia and gradually with supplemental treatment improved to normal in a stable state for discharge. When the patients acute illness had resolved, we did allow him to discharge home with a short term follow up with Dr. Randall, as well as primary care office. Please see electronic medical record for diagnostic tests and labs and discharge plan for discharge medications and follow up information. Discharge time spent >35 mins. Disposition: 01 HOME, SELF-CARE Condition: Stable Health Concerns: Post Hospitalization: new medications and changes needed to prevent readmission or further decline. Pt educated and given instructions on all concerns. Care Plan Goals: Problem: Pain/Alteration in Comfort Goal: Improve/ Resolve Pain; Achieve Pain Tolerance Instructions: Take pain medications as prescribed. Contact your primary care provider if your pain is unrelieved or worsens. Follow up with primary care provider as directed. Plan of Treatment: Continue with present treatment and follow up plan. Pt is to keep follow up appointment as instructed and take medications as ordered. Assessment: No acute distress noted at discharge. Prescriptions: New potassium chloride 40 mEq/15 mL Liquid 40 meq PO DAILY Qty: 30 RF: 0 Transmission Status: Received by [facility] Continued amlodipine 10 mg tablet 10 mg PO DAILY hydrochlorothiazide 25 mg tablet 25 mg PO DAILY PRN hydrocodone-acetaminophen 10-325 mg Tablet 1 tab PO Q6HR PRN (Reason: Pain) losartan 100 mg tablet 100 mg PO QAM metoclopramide HCl 10 mg Tablet 10 mg PO Q6H PRN (Reason: GERD) metoprolol tartrate 50 mg Tablet 25 mg PO BID pantoprazole 40 mg Tablet,Delayed Release (Dr/Ec) 40 mg PO ONCE quetiapine 25 mg tablet 25 mg PO HS sucralfate 1 gram tablet 1 g PO BID tadalafil 20 mg Tablet 20 mg PO Q36H PRN tamsulosin 0.4 mg Capsule 0.4 mg PO HS tizanidine 4 mg Tablet 4 mg PO Q8H PRN Discontinued potassium chloride 20 mEq tablet,ER particles/crystals 20 meq PO DAILY PRN - Follow ups/Referrals Follow ups/Referrals: VITOR CHRISTOPHER [Primary Care Provider] - 06/13/21 9:15 am EDGARD RANDALL [STAFF PHYSICIAN] - 06/14/21 9:00 am - Instructions Instructions: Bowel Obstruction, [id number], Hypokalemia, Abdominal Pain, Adult, [id number], Nausea and Vomiting, Adult, [id number], Constipation, Adult, [id number], Managing Your Hypertension
== END 2021-05-30 14:15 | disposition home or self-care (01) | DRG 390 ==
LOC: ER 13:51 → MED/SURG 19:31
PROVIDERS: ADMIT Obstetrics & Gynecology Obstetrics; ATTEND Internal Medicine
DX: E78.2 Mixed hyperlipidemia; T40.2X5A Adverse effect of other opioids, initial encounter; I10 Essential (primary) hypertension; Z20.822 Contact with and (suspected) exposure to COVID-19; R10.84 Generalized abdominal pain; R11.2 Nausea with vomiting, unspecified; R94.31 Abnormal electrocardiogram [ECG] [EKG]; K59.03 Drug induced constipation; Z87.19 Personal history of other diseases of the digestive system; K56.699 Other intestinal obstruction unspecified as to partial versus complete obstruction; K56.7 Ileus, unspecified; Z79.899 Other long term (current) drug therapy; E87.6 Hypokalemia

== ENCOUNTER 2021-09-24 20:09 | Observation (INO) ==
[2021-09-24 20:33] VITALS: BMI 35.6
[2021-09-24 22:23] LABS: BLOOD UREA NITROGEN 17 mg/dL (7-18); CALCIUM 9.3 mg/dL (8.5-10.1); CARBON DIOXIDE 24.9 mmol/L (21-32); CHLORIDE 103 mmol/L (98-107); COR NA(FOR HYPERGLY) 140 mmol/L (136-145); CREATININE 1.04 mg/dL (0.70-1.30); SODIUM 140 mmol/L (136-145); eGFR NON BLACK RACES > 60 (>60)
[2021-09-24 22:31] LABS: WHITE BLOOD COUNT 10.9 X10^3/uL (3.6-10.0)
[2021-09-24 22:33] LABS: BASOPHILS # (AUTO) 0.1 X10^3/uL (0.0-0.1); BASOPHILS % (AUTO) 1.1 % (0.2-1.0); EOSINOPHILS % (AUTO) 0.3 % (0.9-2.9); HEMOGLOBIN 16.3 g/dL (13.5-18.0); LYMPHOCYTES # (AUTO) 0.9 X10^3/uL (1.3-2.9); LYMPHOCYTES % (AUTO) 7.9 % (21.0-51.0); MEAN CORPUSCULAR HEMOGLOBIN 30.8 pg (27.0-34.0); MEAN CORPUSCULAR HGB CONC 36.2 g/dL (33.0-35.0); MEAN CORPUSCULAR VOLUME 85.1 fL (80.0-100.0); MEAN PLATELET VOLUME 7.6 fL (7.4-11.0); MONOCYTES # (AUTO) 0.6 x10^3/uL (0.3-0.8); MONOCYTES % (AUTO) 5.9 % (0.0-13.0); NEUTROPHILS # (AUTO) 9.3 x10^3/uL (2.2-4.8); NEUTROPHILS % (AUTO) 84.8 % (42.0-75.0)
[2021-09-24 22:44] LABS: BILIRUBIN,URINE 1+ (NEGATIVE); BLOOD/HEMOGLOBIN,URINE 1+ (NEGATIVE); GLUCOSE, URINE NEGATIVE (NEGATIVE); KETONES,URINE 3+ (NEGATIVE); LEUKOCYTE ESTERASE ,URINE 1+ (NEGATIVE); NITRITES,URINE NEGATIVE (NEGATIVE); PROTEIN,URINE 2+ (NEGATIVE); UROBILINOGEN,URINE NORMAL (NORMAL)
[2021-09-24 22:45] LABS: ALANINE AMINOTRANSFERASE 22 Units/L (12-78); ALBUMIN 4.2 g/dL (3.4-5.0); ALKALINE PHOSPHATASE 72 Units/L (46-116); AMYLASE 24 Units/L (25-115); ASPARTATE AMINO TRANSFERASE 12 Units/L (15-37); LIPASE 62 Units/L (73-393); TOTAL PROTEIN 7.3 g/dL (6.4-8.2)
[2021-09-24 22:49] LABS: APPEARANCE,URINE SLIGHTLY HAZY (CLEAR); BACTERIA,URINE TRACE /HPF (NEGATIVE); COLOR,URINE YELLOW (YELLOW); SQUAMOUS EPITHELIAL CELL,UR RARE /HPF (NEGATIVE)
--- NOTE | 2021-09-24 22:52 | DR.ABDMALE ---
HPI Time seen Time Seen by Provider: 09/24/21 22:51 PCP Primary Care Physician: Clarice Stoll Complaint Chief Complaint:: Severe Abdominal Pain, vomiting earlier today, no stool in BM, Only H2O Self Treatment fo Chief Complaint: Seen Many Dodie today, instructed to go to ER if worsened COVID-19 Coronavirus risk:travel/contact w/high risk person: No Has patient experienced Coronavirus symptoms: No Source History provided by:: PATIENT Mode of arrival Mode of Arrival: Ambulatory Timing Onset of Chief Complaint: 09/22/21 PMH PMH Past Medical History: Yes Past Medical History: Hypertension Past Medical History Comment: Multiple Bowel obstructions Past Surgical History: Yes Surgical History: Appendectomy, Cholecystectomy and Ortho Surgery Family History History of Family Medical Conditions: Yes Family Medical History: Diabetes Mellitus, Cancer and Hypertension Social History Does patient currently use any type of tobacco product: No Have you used tobacco products in the last 12 months: No Type of Tobacco Use: None Does any household member use tobacco: No Alcohol Use: Rarely Do you use any recreational Drugs:: No Lives With: Alone Lives Where: Home Travel Risk Coronavirus risk:travel/contact w/high risk person: No Has patient experienced Coronavirus symptoms: No Infectious screening In the last 2 months have you had wt loss of >10#?: NO Have you had fever, night sweats or hemotysis?: No Have you traveled outside the country in the last 6 months?: No Isolation: Standard PE Vital Signs Vital Signs: Temp Pulse Pulse Resp BP BP Pulse Ox 09/25/21 02:22 16 09/25/21 01:52 16 09/25/21 01:22 16 09/25/21 02:09 98.7 F 72 16 144/72 97 09/25/21 00:10 98.6 F 84 16 140/86 97 09/25/21 00:52 20 09/24/21 20:10 98.8 F 110 H 20 126/94 98 05/30/21 11:38 138/77 O2 Del Method 09/25/21 02:22 09/25/21 01:52 09/25/21 01:22 09/25/21 02:09 Room Air 09/25/21 00:10 Room Air 09/25/21 00:52 09/24/21 20:10 Room Air 05/30/21 11:38 ROR Labs Reviewed Result Diagrams: 09/26/21 05:08 09/24/21 22:00 Laboratory: WBC 10.9 X10^3/uL (3.6-10.0) H 09/24/21 22:00 RBC 5.30 X10^6/uL (4.7-6.0) 09/24/21 22:00 Hgb 16.3 g/dL (13.5-18.0) 09/24/21 22:00 Hct 45.0 % (42.0-54.0) 09/24/21 22:00 MCV 85.1 fL (80.0-100.0) 09/24/21 22:00 MCH 30.8 pg (27.0-34.0) 09/24/21 22:00 MCHC 36.2 g/dL (33.0-35.0) H 09/24/21 22:00 RDW 14.0 % (11.6-16.5) 09/24/21 22:00 Plt Count 305 X10^3/uL (150.0-450.0) 09/24/21 22:00 MPV 7.6 fL (7.4-11.0) 09/24/21 22:00 Neut % (Auto) 84.8 % (42.0-75.0) H 09/24/21 22:00 Lymph % (Auto) 7.9 % (21.0-51.0) L 09/24/21 22:00 [place] % (Auto) 5.9 % (0.0-13.0) 09/24/21 22:00 Eos % (Auto) 0.3 % (0.9-2.9) L 09/24/21 22:00 Baso % (Auto) 1.1 % (0.2-1.0) H 09/24/21 22:00 Neut # (Auto) 9.3 x10^3/uL (2.2-4.8) H 09/24/21 22:00 Lymph # (Auto) 0.9 X10^3/uL (1.3-2.9) L 09/24/21 22:00 [place] # (Auto) 0.6 x10^3/uL (0.3-0.8) 09/24/21 22:00 Eos # (Auto) 0.0 x10^3/uL (0.0-0.2) 09/24/21 22:00 Baso # (Auto) 0.1 X10^3/uL (0.0-0.1) 09/24/21 22:00 Absolute Nucleated RBC 0.0 /100WBC 09/24/21 22:00 Sodium 140 mmol/L (136-145) 09/24/21 22:00 Corrected Sodium 140 mmol/L (136-145) 09/24/21 22:00 Potassium 3.1 mmol/L (3.5-5.1) L 09/24/21 22:00 Chloride 103 mmol/L (98-107) 09/24/21 22:00 Carbon Dioxide 24.9 mmol/L (21-32) 09/24/21 22:00 BUN 17 mg/dL (7-18) 09/24/21 22:00 Creatinine 1.04 mg/dL (0.70-1.30) 09/24/21 22:00 Est GFR (MDRD) Af Amer > 60 (>60) 09/24/21 22:00 Est GFR (MDRD) Non-Af > 60 (>60) 09/24/21 22:00 Glucose 119 mg/dL (65-99) H 09/24/21 22:00 Calcium 9.3 mg/dL (8.5-10.1) 09/24/21 22:00 Corrected Calcium TNP 09/24/21 22:00 Total Bilirubin 1.50 mg/dL (0.2-1.0) H 09/24/21 22:00 AST 12 Units/L (15-37) L 09/24/21 22:00 ALT 22 Units/L (12-78) 09/24/21 22:00 Alkaline Phosphatase 72 Units/L (46-116) 09/24/21 22:00 Total Protein 7.3 g/dL (6.4-8.2) 09/24/21 22:00 Albumin 4.2 g/dL (3.4-5.0) 09/24/21 22:00 Globulin 3.1 g/dL (2.5-4.5) 09/24/21 22:00 Albumin/Globulin Ratio 1.4 Ratio (1.1-2.1) 09/24/21 22:00 Amylase 24 Units/L (25-115) L 09/24/21 22:00 Lipase 62 Units/L (73-393) L 09/24/21 22:00 Specimen Type Clean catch urine 09/24/21 22: Urine Color Yellow (YELLOW) 09/24/21 22: Urine Appearance Slightly hazy (CLEAR) 09/24/21 22: Urine pH 5.0 (5.0 - 8.0) 09/24/21: Ur Specific [place] 1.020 (1.000-1.030) 09/24/21 22: Urine Protein 2+ (NEGATIVE) 09/24/21: Urine Glucose (UA) Negative (NEGATIVE) 09/24/21: Urine Ketones 3+ (NEGATIVE) 09/24/21: Urine Blood 1+ (NEGATIVE) 09/24/21: Urine Nitrite Negative (NEGATIVE) 09/24/21 22: Urine Bilirubin 1+ (NEGATIVE) 09/24/21: Urine Urobilinogen Normal (NORMAL) 09/24/21: Ur Leukocyte Esterase 1+ (NEGATIVE) 09/24/21: Urine RBC 5-10 /HPF (0-3) A 09/24/21 22: Urine WBC 3-5 /HPF (0-5) 09/24/21 22: Ur Squamous Epith Cells Rare /HPF (NEGATIVE) 09/24/21 22: Urine Bacteria Trace /HPF (NEGATIVE) 09/24/21 22: Urine Mucus Few /HPF (NEGATIVE) 09/24/21 22: Ur Culture Indicated? No/not indicated 09/24/21 22: SARS CoV-2 RNA Rapid EMETERIO Negative (NEGATIVE) 09/25/21 01:47 Opioid Opioid Risk Tool Age (Jun box if 16-45): No History of Preadolescent Sexual Abuse: No Total: 0 Total Score Risk Category: Low Risk Copyright: Harris DOWNEY predicting aberrant behaviors Discharge Plan Diagnosis Discharge Problem: Partial obstruction of small intestine, Abdominal pain, Enteritis, Hypokalemia Discharge Plan Patient Disposition: 09 ADMITTED INPATIENT Condition: Stable
--- NOTE | 2021-09-25 00:21 | CT ---
PROCEDURE: CT Abdomen and Pelvis without Contrast .HISTORY: Severe Abdominal Pain, vomiting earlier today, diarrhea .TECHNIQUE: Axial images were performed through the abdomen and pelvis without the administration of IV contrast with multiplanar reformations . Oral contrast was not administered . Dose reduction techniques including Automated Exposure Control (AEC) and adjustment of mA and kV were utilized .COMPARISON: 05/26/2021.TECHNICAL QUALITY: Satisfactory .FINDINGS:Clear lung bases.Liver, spleen, adrenals, pancreas show no abnormality.Kidneys show no stones or obstruction.Previous cholecystectomy.No ascites or pneumoperitoneum.Normal aorta.No lymphadenopathy.Some mucosal thickening involving small bowel loops consistent with enteritis. Some of the bowel loops are dilated in the jejunal region to 5.3 cm with fluid and could represent partial obstruction or localized ileus. Large bowel is unremarkable. Previous appendectomy.Pelvis shows no masses or free fluid in normal urinary bladder.No acute bony abnormality.IMPRESSION:1. Enteritis that is probably infectious with localized ileus versus partial small-bowel obstruction and follow-up plain films may be helpful.2. No other abnormality identified.Electronically signed by: Cooper Orellana (Sep 25, 2021 00:19:25)
[2021-09-25] MEDS ORDERED: DEMEROL INJ IVP ONE (00:43)
[2021-09-25] MEDS ORDERED: ZOFRAN INJ 4 MG VIAL IVP ONE (00:43)
[2021-09-25] MEDS ORDERED: ZOFRAN INJ 4 MG VIAL ONE ×2 (00:47→06:29)
[2021-09-25] MEDS ORDERED: DEMEROL INJ ONE ×3 (00:47→11:17)
[2021-09-25] MEDS ORDERED: NS 1,000 ML IV 1,000 ML IV SCH (01:00)
[2021-09-25] MEDS ORDERED: NS + KCL 20 MEQ/L 1,000 ML IV ONE ×2 (01:08→08:56)
[2021-09-25] MEDS: NS + KCL 20 MEQ/L 1,000 ML IV SCH ×3 (01:13→18:00)
[2021-09-25] MEDS ORDERED: REGLAN TAB 10 MG PO PRN (02:26)
[2021-09-25] MEDS ORDERED: KLONOPIN TAB 1 MG PO PRN (02:26)
[2021-09-25] MEDS ORDERED: ZANAFLEX PO PRN (02:26)
[2021-09-25] MEDS ORDERED: PROTONIX TAB 40 MG PO ONE (02:41)
[2021-09-25] MEDS ORDERED: PROTONIX TAB 40 MG PO SCH (03:00)
[2021-09-25] MEDS: DEMEROL INJ IVP PRN ×4 (06:38→20:44)
[2021-09-25] MEDS: ZOFRAN INJ 4 MG VIAL IVP PRN ×3 (06:40→20:43)
[2021-09-25] MEDS ORDERED: NORCO 10/325 TAB PO PRN (08:20)
[2021-09-25] MEDS ORDERED: LOPRESSOR TAB 25 MG ONE (08:56)
[2021-09-25] MEDS ORDERED: CIPRO IV 400 MG PREMIX* 400 MG/200 ML IV.SOLN. IV ONE (08:56)
[2021-09-25] MEDS: NORVASC TAB 5 MG PO SCH (09:12)
[2021-09-25] MEDS: CIPRO IV 400 MG PREMIX* 400 MG/200 ML IV.SOLN. IV SCH ×2 (09:12→20:43)
[2021-09-25] MEDS: LOPRESSOR TAB 50 MG PO SCH ×2 (09:13→20:42)
[2021-09-25] MEDS: COZAAR PO SCH (09:13)
[2021-09-25] MEDS ORDERED: PROTONIX INJ 40 MG VIAL ONE (11:02)
[2021-09-25] MEDS: PROTONIX INJ 40 MG VIAL IVP SCH ×2 (11:07→20:42)
--- NOTE | 2021-09-25 18:39 | DR.H&P ---
H&P - History & Physical for Day of: H&P Date: 09/25/21 - Chief Complaint Chief Complaint: ABDOMINAL PAIN, N/V - History of Present Illness History of Present Illness: This is a 51-year-old male who is well-known to us from before. He presented to Dr. Adame office with progressive abdominal pain, distention, nausea, vomiting, and diarrhea. The patient was referred to the ER where he was evaluated and was found to have partial small bowel obstruction. He is known to have recurrent episodes of partial small bowel obstruction requiring admissions to the hospital. There is no known history of inflammatory bowel disease. - Past Medical History Past Medical History: Arthritis, GERD, Hypertension Additional Medical History: SBO - Past Surgical History Surgical History: Appendectomy, Cholecystectomy, Ortho Surgery Additional Surgical History: Lysis of adhesions for SBO. - Family History Family Medical History: Diabetes Mellitus, Cancer, Hypertension - Social History Does patient currently use any type of tobacco product: No Have you used tobacco products in the last 12 months: No Type of Tobacco Use: None Does any household member use tobacco: No Alcohol Use: Rarely - Medications Home Medications: No Known Drug Allergies [NKDA] Allergy (Verified 10/22/19 18:33) CONTINUE taking the following medications clonazepam 1 mg tablet 1 mg PO QHS PRN 09/25/21 [History] quetiapine 25 mg tablet 1 tab PO QPM 09/25/21 [History] - Review of Systems Constitutional: Malaise Eyes: No Symptoms Reported ENT: No Symptoms Reported Respiratory: No Symptoms Reported Cardiovascular: No Symptoms Reported Gastrointestinal: Nausea, Vomiting, Abdominal Pain Genitourinary: No Symptoms Reported Musculoskeletal: Back Pain Skin: No Symptoms Reported Neurological: No Symptoms Reported - Physical Exam Vital Signs: Temperature 98.2 F Pulse Rate [Left Radial] 70 Pulse Rate 64 Respiratory Rate 22 Blood Pressure [Left Arm] 139/79 Blood Pressure 120/64 O2 Sat by Pulse Oximetry 96 Oriented: Normal Eyes: Normal Ear: Normal Nose: Normal Throat: Normal Respiratory: Clear Throughout Cardiovascular: Normal : Normal Auscultation: Bowel Sounds: Increased Tenderness: Diffuse Skin: Decreased Turgur Musculoskeletal: Back:Lumbar Psychiatric: Normal Mood Description: Calm Speech Pattern: Clear, Appropriate - Assessment/Plan (1) Bowel obstruction Status: Acute Plan: ADMIT, IV HYDRATION. PAIN AND NAUSEA CONTROL. DR KPI BOYLE CONSULTING. BP CONTROL, STOOL STUDIES. PPI THERAPY (2) Enteritis Status: Acute (3) GERD (gastroesophageal reflux disease) Status: Chronic (4) Lumbar and sacral spondyloarthritis Status: Chronic (5) Hypertension Status: Chronic - Allergies Allergies/Adverse Reactions: Allergies Allergy/AdvReac Type Severity Reaction Status Date / Time No Known Drug Allergies Allergy Verified 10/22/19 18:33 [NKDA]
[2021-09-25] MEDS ORDERED: FLOMAX ONE (19:11)
[2021-09-25] MEDS ORDERED: SEROquel TAB 25 mg PO ONE (19:12)
[2021-09-25] MEDS: FLOMAX PO SCH (20:43)
[2021-09-25] MEDS: SEROquel TAB 25 mg PO SCH (20:43)
[2021-09-26] MEDS: NS + KCL 20 MEQ/L 1,000 ML IV SCH ×3 (02:53→19:22)
[2021-09-26] MEDS: DEMEROL INJ IVP PRN ×4 (05:13→20:41)
[2021-09-26] MEDS: ZOFRAN INJ 4 MG VIAL IVP PRN ×3 (05:13→20:40)
[2021-09-26 06:01] LABS: BASOPHILS % (AUTO) 0.3 % (0.2-1.0); EOSINOPHILS # (AUTO) 0.2 x10^3/uL (0.0-0.2); EOSINOPHILS % (AUTO) 2.6 % (0.9-2.9); HEMATOCRIT 35.7 % (42.0-54.0); LYMPHOCYTES # (AUTO) 1.2 X10^3/uL (1.3-2.9); MEAN CORPUSCULAR HEMOGLOBIN 31.1 pg (27.0-34.0); MEAN CORPUSCULAR HGB CONC 36.3 g/dL (33.0-35.0); MEAN CORPUSCULAR VOLUME 85.6 fL (80.0-100.0); MEAN PLATELET VOLUME 7.6 fL (7.4-11.0); MONOCYTES # (AUTO) 0.5 x10^3/uL (0.3-0.8); MONOCYTES % (AUTO) 7.3 % (0.0-13.0); NEUTROPHILS # (AUTO) 4.8 x10^3/uL (2.2-4.8); NEUTROPHILS % (AUTO) 71.8 % (42.0-75.0); RED BLOOD COUNT 4.17 X10^6/uL (4.7-6.0); RED CELL DISTRIBUTION WIDTH 13.9 % (11.6-16.5); WHITE BLOOD COUNT 6.6 X10^3/uL (3.6-10.0)
[2021-09-26 06:21] LABS: ALANINE AMINOTRANSFERASE 17 Units/L (12-78); ALKALINE PHOSPHATASE 53 Units/L (46-116); ASPARTATE AMINO TRANSFERASE 11 Units/L (15-37); BLOOD UREA NITROGEN 11 mg/dL (7-18); CARBON DIOXIDE 25.5 mmol/L (21-32); CHLORIDE 109 mmol/L (98-107); COR CA(FOR HYPOALB) 8.8 mg/dL (8.5-10.1); SODIUM 143 mmol/L (136-145); TOTAL PROTEIN 5.5 g/dL (6.4-8.2); eGFR NON BLACK RACES > 60 (>60)
[2021-09-26] MEDS: NORVASC TAB 5 MG PO SCH (09:27)
[2021-09-26] MEDS: LOPRESSOR TAB 50 MG PO SCH ×2 (09:27→20:40)
[2021-09-26] MEDS: COZAAR PO SCH (09:27)
[2021-09-26] MEDS: PROTONIX INJ 40 MG VIAL IVP SCH ×2 (09:34→20:39)
[2021-09-26] MEDS: CIPRO IV 400 MG PREMIX* 400 MG/200 ML IV.SOLN. IV SCH ×2 (09:34→21:04)
--- NOTE | 2021-09-26 11:18 | RAD ---
HISTORYABD PAIN, SBOSTUDYACUTE ABDOMEN x-ray SERIES, one view chest and two views abdomenCOMPARISONCT abdomen 09/24/2021FINDINGSHeart is normal in size. No pneumothorax, focal infiltrate, or pleural effusion is seen. There are persistent dilated small bowel loops in the abdomen. No definite air-fluid levels are seen. There is mild diffuse colonic air. No evidence of free intraperitoneal air.IMPRESSIONPersistent dilated proximal small bowel loops could be due to partial small-bowel obstruction.Electronically signed by: López Joseph (Sep 26, 2021 11:16:41)
--- NOTE | 2021-09-26 14:20 | DR.PROGNOT ---
Hospital Progress Notes - Progress Note for Day of: Progress Note Date: 09/26/21 - Chief Complaint Chief Complaint: still having abdominal pain . no vomiting .. KUB still showing dilated small bowel loops . afebrile . - Past Medical Family Social History Past Med/Fam/Surg Hx: No changes since H&P Allergies: Allergies No Known Drug Allergies [NKDA] Allergy (Verified 10/22/19 18:33) - Review Of Systems ROS: No change since H&P - Vital Signs Vital Signs: Temperature 97.7 F Pulse Rate [Left Radial] 70 Pulse Rate 61 Respiratory Rate 18 Blood Pressure [Left Arm] 139/79 Blood Pressure 94/53 O2 Sat by Pulse Oximetry 95 - Physical Exam Oriented: Normal Eyes: Normal Ear: Normal Nose: Normal Throat: Normal Cardiovascular: Normal : Normal GI:Auscultation: Increased GI: Tenderness: Diffuse (soft abdomen with moderate distention and diffuse tenderness .. BS+) Skin: Decreased Turgur Musculoskeletal: Back:Lumbar Psychiatric: Normal Mood Description: Calm Speech Pattern: Clear - Laboratory and Diagnostics Result Diagrams: 09/26/21 05:08 09/26/21 05:08 Labs: 09/25/21 22:45 Stool - Final Laboratory WBC 6.6 X10^3/uL (3.6-10.0) 09/26/21 05:08 RBC 4.17 X10^6/uL (4.7-6.0) L 09/26/21 05:08 Hgb 13.0 g/dL (13.5-18.0) L D 09/26/21 05:08 Hct 35.7 % (42.0-54.0) L 09/26/21 05:08 MCV 85.6 fL (80.0-100.0) 09/26/21 05:08 MCH 31.1 pg (27.0-34.0) 09/26/21 05:08 MCHC 36.3 g/dL (33.0-35.0) H 09/26/21 05:08 RDW 13.9 % (11.6-16.5) 09/26/21 05:08 Plt Count 222 X10^3/uL (150.0-450.0) 09/26/21 05:08 MPV 7.6 fL (7.4-11.0) 09/26/21 05:08 Neut % (Auto) 71.8 % (42.0-75.0) 09/26/21 05:08 Lymph % (Auto) 18.0 % (21.0-51.0) L 09/26/21 05:08 [place] % (Auto) 7.3 % (0.0-13.0) 09/26/21 05:08 Eos % (Auto) 2.6 % (0.9-2.9) 09/26/21 05:08 Baso % (Auto) 0.3 % (0.2-1.0) 09/26/21 05:08 Neut # (Auto) 4.8 x10^3/uL (2.2-4.8) 09/26/21 05:08 Lymph # (Auto) 1.2 X10^3/uL (1.3-2.9) L 09/26/21 05:08 [place] # (Auto) 0.5 x10^3/uL (0.3-0.8) 09/26/21 05:08 Eos # (Auto) 0.2 x10^3/uL (0.0-0.2) 09/26/21 05:08 Baso # (Auto) 0.0 X10^3/uL (0.0-0.1) 09/26/21 05:08 Absolute Nucleated RBC 0.0 /100WBC 09/26/21 05:08 Sodium 143 mmol/L (136-145) 09/26/21 05:08 Corrected Sodium TNP 09/26/21 05:08 Potassium 3.5 mmol/L (3.5-5.1) 09/26/21 05:08 Chloride 109 mmol/L (98-107) H 09/26/21 05:08 Carbon Dioxide 25.5 mmol/L (21-32) 09/26/21 05:08 BUN 11 mg/dL (7-18) 09/26/21 05:08 Creatinine 0.70 mg/dL (0.70-1.30) 09/26/21 05:08 Est GFR (MDRD) Af Amer > 60 (>60) 09/26/21 05:08 Est GFR (MDRD) Non-Af > 60 (>60) 09/26/21 05:08 Glucose 90 mg/dL (65-99) 09/26/21 05:08 Calcium 8.0 mg/dL (8.5-10.1) L 09/26/21 05:08 Corrected Calcium 8.8 mg/dL (8.5-10.1) 09/26/21 05:08 Magnesium 2.0 mg/dL (1.7-2.9) 09/26/21 05:08 Total Bilirubin 0.80 mg/dL (0.2-1.0) 09/26/21 05:08 AST 11 Units/L (15-37) L 09/26/21 05:08 ALT 17 Units/L (12-78) 09/26/21 05:08 Alkaline Phosphatase 53 Units/L (46-116) 09/26/21 05:08 Total Protein 5.5 g/dL (6.4-8.2) L 09/26/21 05:08 Albumin 3.0 g/dL (3.4-5.0) L 09/26/21 05:08 Globulin 2.5 g/dL (2.5-4.5) 09/26/21 05:08 Albumin/Globulin Ratio 1.2 Ratio (1.1-2.1) 09/26/21 05:08 Amylase 24 Units/L (25-115) L 09/24/21 22:00 Lipase 62 Units/L (73-393) L 09/24/21 22:00 Specimen Type Clean catch urine 09/24/21 22:23 Urine Color Yellow (YELLOW) 09/24/21 22:23 Urine Appearance Slightly hazy (CLEAR) 09/24/21 22: Urine pH 5.0 (5.0 - 8.0) 09/24/21 22: Ur Specific [place] 1.020 (1.000-1.030) 09/24/21 22:23 Urine Protein 2+ (NEGATIVE) 09/24/21 22: Urine Glucose (UA) Negative (NEGATIVE) 09/24/21 22: Urine Ketones 3+ (NEGATIVE) 09/24/21 22: Urine Blood 1+ (NEGATIVE) 09/24/21 22: Urine Nitrite Negative (NEGATIVE) 09/24/21 22: Urine Bilirubin 1+ (NEGATIVE) 09/24/21: Urine Urobilinogen Normal (NORMAL) 08/15/22 22:23 Ur Leukocyte Esterase 1+ (NEGATIVE) 09/24/21 22:23 Urine RBC 5-10 /HPF (0-3) A 09/24/21 22:23 Urine WBC 3-5 /HPF (0-5) 09/24/21 22:23 Ur Squamous Epith Cells Rare /HPF (NEGATIVE) 09/24/21 22:23 Urine Bacteria Trace /HPF (NEGATIVE) 09/24/21 22:23 Urine Mucus Few /HPF (NEGATIVE) 09/24/21 22:23 Ur Culture Indicated? No/not indicated 09/24/21 22:23 Stool Description 10 g. liquid 09/25/21 22:45 Stl Occult Blood (IFOB) Negative (NEGATIVE) 09/25/21 22:45 Stool for White Cells Positive (NEGATIVE) A 09/25/21 22:45 Stl C. diff Tox B Gene Negative (NEGATIVE) 09/25/21 22:45 Stl C. diff [id number] Presumptive negative (NEGATIVE) 09/25/21 22:45 Stool H. pylori Ag Negative (NEGATIVE) 09/25/21 22:45 SARS CoV-2 RNA Rapid EMETERIO Negative (NEGATIVE) 09/25/21 01:47 - Assessment and Plan 1: improving partial SBO .. to advance diet and observe .. 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
[2021-09-26] MEDS: ZITHROMAX INJ 500 MG VIAL 500 MG in D5W 250 ML IV 250 ML IV SCH (19:22)
[2021-09-26] MEDS: FLOMAX PO SCH (20:39)
[2021-09-26] MEDS: SEROquel TAB 25 mg PO SCH (20:40)
[2021-09-26] MEDS ORDERED: KLOR-CON PO PRN (23:57)
[2021-09-26] MEDS ORDERED: POTASSIUM CHL 60 MEQ/NS 0.45% 500 ML IV PRN (23:57)
[2021-09-26] MEDS ORDERED: MICRO K EXTEN CAP 10 MEQ PO PRN (23:57)
[2021-09-26] MEDS ORDERED: POTASSIUM CHLORIDE LIQ 20 MEQ UDC PO PRN (23:57)
[2021-09-26] MEDS ORDERED: POTASSIUM CHL 40 MEQ/NS 0.45% 500 ML IV PRN (23:57)
[2021-09-26] MEDS ORDERED: MAGNESIUM SULFATE 1 GRAM/100 mL PREMIX 1 G/100 ML BAG IV PRN (23:57)
[2021-09-26] MEDS ORDERED: K-RIDER 10 MEQ/NS 100 ML 10 MEQ/100 ML BAG IV PRN (23:57)
[2021-09-27] MEDS: NS + KCL 20 MEQ/L 1,000 ML IV SCH ×4 (02:00→20:49)
[2021-09-27] MEDS: DEMEROL INJ IVP PRN ×4 (04:24→20:15)
[2021-09-27] MEDS: ZOFRAN INJ 4 MG VIAL IVP PRN ×3 (04:25→20:15)
[2021-09-27 05:35] LABS: BASOPHILS % (AUTO) 0.2 % (0.2-1.0); EOSINOPHILS # (AUTO) 0.2 x10^3/uL (0.0-0.2); EOSINOPHILS % (AUTO) 3.1 % (0.9-2.9); HEMATOCRIT 33.9 % (42.0-54.0); HEMOGLOBIN 12.5 g/dL (13.5-18.0); LYMPHOCYTES # (AUTO) 1.1 X10^3/uL (1.3-2.9); LYMPHOCYTES % (AUTO) 19.1 % (21.0-51.0); MEAN CORPUSCULAR HEMOGLOBIN 31.4 pg (27.0-34.0); MEAN CORPUSCULAR HGB CONC 36.9 g/dL (33.0-35.0); MEAN CORPUSCULAR VOLUME 85.1 fL (80.0-100.0); MEAN PLATELET VOLUME 7.6 fL (7.4-11.0); MONOCYTES # (AUTO) 0.4 x10^3/uL (0.3-0.8); MONOCYTES % (AUTO) 6.3 % (0.0-13.0); NEUTROPHILS # (AUTO) 4.1 x10^3/uL (2.2-4.8); NEUTROPHILS % (AUTO) 71.3 % (42.0-75.0); RED BLOOD COUNT 3.99 X10^6/uL (4.7-6.0); RED CELL DISTRIBUTION WIDTH 13.4 % (11.6-16.5); WHITE BLOOD COUNT 5.7 X10^3/uL (3.6-10.0)
[2021-09-27 05:49] LABS: ALANINE AMINOTRANSFERASE 15 Units/L (12-78); ALBUMIN 2.9 g/dL (3.4-5.0); ALKALINE PHOSPHATASE 55 Units/L (46-116); ASPARTATE AMINO TRANSFERASE 10 Units/L (15-37); BLOOD UREA NITROGEN 9 mg/dL (7-18); CALCIUM 7.8 mg/dL (8.5-10.1); CARBON DIOXIDE 25.3 mmol/L (21-32); CHLORIDE 109 mmol/L (98-107); COR CA(FOR HYPOALB) 8.7 mg/dL (8.5-10.1); SODIUM 142 mmol/L (136-145); TOTAL PROTEIN 5.3 g/dL (6.4-8.2); eGFR NON BLACK RACES > 60 (>60)
[2021-09-27] MEDS: CIPRO IV 400 MG PREMIX* 400 MG/200 ML IV.SOLN. IV SCH ×2 (09:23→20:13)
[2021-09-27] MEDS: COZAAR PO SCH (10:17)
[2021-09-27] MEDS: NORVASC TAB 5 MG PO SCH (10:18)
[2021-09-27] MEDS: LOPRESSOR TAB 50 MG PO SCH ×2 (10:18→20:13)
[2021-09-27] MEDS: PROTONIX INJ 40 MG VIAL IVP SCH ×2 (10:20→20:12)
[2021-09-27] MEDS: ZITHROMAX INJ 500 MG VIAL 500 MG in D5W 250 ML IV 250 ML IV SCH (10:25)
[2021-09-27] MEDS: BENTYL I.M. INJ 10 MG IM SCH ×2 (10:26→16:35)
--- NOTE | 2021-09-27 11:18 | RAD ---
HISTORYABD PAINSTUDYKUB x-ray one viewCOMPARISONX-ray from previous dayFINDINGSStudy is limited by patient's size and difficulty penetrating abdomen. There is improvement of small-bowel air compared to prior study. No small bowel dilation is seen on this study. Little colonic air is seen, improved from prior exam, also. Prior cholecystectomy.IMPRESSIONDiminished small and large bowel air compared to prior study. No bowel dilation is identified.Electronically signed by: López Joseph (Sep 27, 2021 11:17:15)
[2021-09-27] MEDS: K-DUR TAB 20 MEQ PO PRN (15:20)
--- NOTE | 2021-09-27 16:59 | DR.PROGNOT ---
Hospital Progress Notes - Progress Note for Day of: Progress Note Date: 09/27/21 - Chief Complaint Chief Complaint: still having moderate abdominal pain . no vomiting .. KUB still showing improved SBO .. stool culture showed Campy bacteria .. otherwise normal lab work . - Past Medical Family Social History Past Med/Fam/Surg Hx: No changes since H&P Allergies: Allergies No Known Drug Allergies [NKDA] Allergy (Verified 10/22/19 18:33) - Review Of Systems ROS: No change since H&P - Vital Signs Vital Signs: Temperature 98.7 F Pulse Rate [Left Radial] 70 Pulse Rate 74 Respiratory Rate 18 Blood Pressure [Left Arm] 139/79 Blood Pressure 146/73 O2 Sat by Pulse Oximetry 98 - Physical Exam Oriented: Normal Eyes: Normal Ear: Normal Nose: Normal Throat: Normal Cardiovascular: Normal : Normal GI:Auscultation: Increased GI: Tenderness: Diffuse (soft abdomen with moderate distention and diffuse tenderness .. BS+) Skin: Decreased Turgur Musculoskeletal: Back:Lumbar Psychiatric: Normal Mood Description: Calm Speech Pattern: Clear - Laboratory and Diagnostics Result Diagrams: 09/27/21 04:56 09/27/21 04:56 Labs: 09/25/21 22:45 Stool Stool Culture - Preliminary 09/25/21 22:45 Stool - Final Laboratory WBC 5.7 X10^3/uL (3.6-10.0) 09/27/21 04:56 RBC 3.99 X10^6/uL (4.7-6.0) L 09/27/21 04:56 Hgb 12.5 g/dL (13.5-18.0) L 09/27/21 04:56 Hct 33.9 % (42.0-54.0) L 09/27/21 04:56 MCV 85.1 fL (80.0-100.0) 09/27/21 04:56 MCH 31.4 pg (27.0-34.0) 09/27/21 04:56 MCHC 36.9 g/dL (33.0-35.0) H 09/27/21 04:56 RDW 13.4 % (11.6-16.5) 09/27/21 04:56 Plt Count 210 X10^3/uL (150.0-450.0) 09/27/21 04:56 MPV 7.6 fL (7.4-11.0) 09/27/21 04:56 Neut % (Auto) 71.3 % (42.0-75.0) 09/27/21 04:56 Lymph % (Auto) 19.1 % (21.0-51.0) L 09/27/21 04:56 [place] % (Auto) 6.3 % (0.0-13.0) 09/27/21 04:56 Eos % (Auto) 3.1 % (0.9-2.9) H 09/27/21 04:56 Baso % (Auto) 0.2 % (0.2-1.0) 09/27/21 04:56 Neut # (Auto) 4.1 x10^3/uL (2.2-4.8) 09/27/21 04:56 Lymph # (Auto) 1.1 X10^3/uL (1.3-2.9) L 09/27/21 04:56 [place] # (Auto) 0.4 x10^3/uL (0.3-0.8) 09/27/21 04:56 Eos # (Auto) 0.2 x10^3/uL (0.0-0.2) 09/27/21 04:56 Baso # (Auto) 0.0 X10^3/uL (0.0-0.1) 09/27/21 04:56 Absolute Nucleated RBC 0.1 /100WBC 09/27/21 04:56 Sodium 142 mmol/L (136-145) 09/27/21 04:56 Corrected Sodium TNP 09/27/21 04:56 Potassium 3.5 mmol/L (3.5-5.1) 09/27/21 04:56 Chloride 109 mmol/L (98-107) H 09/27/21 04:56 Carbon Dioxide 25.3 mmol/L (21-32) 09/27/21 04:56 BUN 9 mg/dL (7-18) 09/27/21 04:56 Creatinine 0.70 mg/dL (0.70-1.30) 09/27/21 04:56 Est GFR (MDRD) Af Amer > 60 (>60) 09/27/21 04:56 Est GFR (MDRD) Non-Af > 60 (>60) 09/27/21 04:56 Glucose 90 mg/dL (65-99) 09/27/21 04:56 Calcium 7.8 mg/dL (8.5-10.1) L 09/27/21 04:56 Corrected Calcium 8.7 mg/dL (8.5-10.1) 09/27/21 04:56 Magnesium 2.0 mg/dL (1.7-2.9) 09/27/21 04:56 Total Bilirubin 0.60 mg/dL (0.2-1.0) 09/27/21 04:56 AST 10 Units/L (15-37) L 09/27/21 04:56 ALT 15 Units/L (12-78) 09/27/21 04:56 Alkaline Phosphatase 55 Units/L (46-116) 09/27/21 04:56 Total Protein 5.3 g/dL (6.4-8.2) L 09/27/21 04:56 Albumin 2.9 g/dL (3.4-5.0) L 09/27/21 04:56 Globulin 2.4 g/dL (2.5-4.5) L 09/27/21 04:56 Albumin/Globulin Ratio 1.2 Ratio (1.1-2.1) 09/27/21 04:56 Amylase 24 Units/L (25-115) L 09/24/21 22:00 Lipase 62 Units/L (73-393) L 09/24/21 22:00 Specimen Type Clean catch urine 09/24/21 22: Urine Color Yellow (YELLOW) 09/24/21 22: Urine Appearance Slightly hazy (CLEAR) 09/24/21 22: Urine pH 5.0 (5.0 - 8.0) 09/24/21 22:23 Ur Specific [place] 1.020 (1.000-1.030) 09/24/21 22: Urine Protein 2+ (NEGATIVE) 09/24/21 22: Urine Glucose (UA) Negative (NEGATIVE) 09/24/21 22: Urine Ketones 3+ (NEGATIVE) 09/24/21 22:23 Urine Blood 1+ (NEGATIVE) 09/24/21 22: Urine Nitrite Negative (NEGATIVE) 09/24/21 22: Urine Bilirubin 1+ (NEGATIVE) 09/24/21 22:23 Urine Urobilinogen Normal (NORMAL) 09/24/21 22:23 Ur Leukocyte Esterase 1+ (NEGATIVE) 09/24/21 22:23 Urine RBC 5-10 /HPF (0-3) A 09/24/21 22:23 Urine WBC 3-5 /HPF (0-5) 09/24/21 22:23 Ur Squamous Epith Cells Rare /HPF (NEGATIVE) 09/24/21 22:23 Urine Bacteria Trace /HPF (NEGATIVE) 09/24/21 22:23 Urine Mucus Few /HPF (NEGATIVE) 09/24/21 22:23 Ur Culture Indicated? No/not indicated 09/24/21 22:23 Stool Description 10 g. liquid 09/25/21 22:45 Stl Occult Blood (IFOB) Negative (NEGATIVE) 09/25/21 22:45 Stool for White Cells Positive (NEGATIVE) A 09/25/21 22:45 Stl C. diff Tox B Gene Negative (NEGATIVE) 09/25/21 22:45 Stl C. diff [id number] Presumptive negative (NEGATIVE) 09/25/21 22:45 Stool H. pylori Ag Negative (NEGATIVE) 09/25/21 22:45 SARS CoV-2 RNA Rapid EMETERIO Negative (NEGATIVE) 09/25/21 01:47 - Assessment and Plan 1: improving partial SBO .. to advance diet and observe .. 2: improving partial SBO . positive Campy Bacteria . was started on Zithromax . clear liquid . 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
[2021-09-27] MEDS: FLOMAX PO SCH (20:13)
[2021-09-27] MEDS: SEROquel TAB 25 mg PO SCH (20:13)
[2021-09-28] MEDS: BENTYL I.M. INJ 10 MG IM SCH ×3 (01:13→16:14)
[2021-09-28 05:27] LABS: BASOPHILS % (AUTO) 0.3 % (0.2-1.0); EOSINOPHILS # (AUTO) 0.2 x10^3/uL (0.0-0.2); EOSINOPHILS % (AUTO) 3.2 % (0.9-2.9); HEMATOCRIT 35.7 % (42.0-54.0); LYMPHOCYTES # (AUTO) 1.3 X10^3/uL (1.3-2.9); LYMPHOCYTES % (AUTO) 21.8 % (21.0-51.0); MEAN CORPUSCULAR HGB CONC 36.5 g/dL (33.0-35.0); MEAN CORPUSCULAR VOLUME 84.8 fL (80.0-100.0); MEAN PLATELET VOLUME 7.7 fL (7.4-11.0); MONOCYTES # (AUTO) 0.5 x10^3/uL (0.3-0.8); MONOCYTES % (AUTO) 7.4 % (0.0-13.0); NEUTROPHILS # (AUTO) 4.1 x10^3/uL (2.2-4.8); NEUTROPHILS % (AUTO) 67.3 % (42.0-75.0); RED BLOOD COUNT 4.21 X10^6/uL (4.7-6.0); RED CELL DISTRIBUTION WIDTH 13.6 % (11.6-16.5); WHITE BLOOD COUNT 6.1 X10^3/uL (3.6-10.0)
[2021-09-28] MEDS: NS + KCL 20 MEQ/L 1,000 ML IV SCH (05:30)
[2021-09-28] MEDS: ZOFRAN INJ 4 MG VIAL IVP PRN ×3 (05:31→21:47)
[2021-09-28] MEDS: DEMEROL INJ IVP PRN ×4 (05:31→21:47)
[2021-09-28 05:41] LABS: ALANINE AMINOTRANSFERASE 16 Units/L (12-78); ALBUMIN 3.1 g/dL (3.4-5.0); ALKALINE PHOSPHATASE 55 Units/L (46-116); ASPARTATE AMINO TRANSFERASE 10 Units/L (15-37); BLOOD UREA NITROGEN 6 mg/dL (7-18); CALCIUM 7.8 mg/dL (8.5-10.1); CARBON DIOXIDE 28.1 mmol/L (21-32); CHLORIDE 108 mmol/L (98-107); COR CA(FOR HYPOALB) 8.5 mg/dL (8.5-10.1); CREATININE 0.79 mg/dL (0.70-1.30); SODIUM 142 mmol/L (136-145); TOTAL PROTEIN 5.6 g/dL (6.4-8.2); eGFR NON BLACK RACES > 60 (>60)
--- NOTE | 2021-09-28 07:45 | RAD ---
HISTORYSmall bowel [id number]/18/2022 .br.br.br.br in the mid abdomen. There is a small amount of gas distally within the colon. No significant dilated small bowel is identified. However it should be noted that the dilated small bowel loops identified on the recent CT were predominantly fluid-filled and may not be visible on plain film. No abnormal masses or abnormal calcifications are identified. Regional skeleton is intact.IMPRESSIONNo significant small bowel dilatation identified, however, it should be noted that the dilated loops of small bowel identified on the recent CT abdomen pelvis were predominantly fluid-filled and may not be visible on plain film.Electronically signed by: YUKI BEYER (Sep 28, 2021 07:44:30)
[2021-09-28] MEDS: CIPRO IV 400 MG PREMIX* 400 MG/200 ML IV.SOLN. IV SCH (09:23)
[2021-09-28] MEDS: LOPRESSOR TAB 50 MG PO SCH ×2 (09:24→21:45)
[2021-09-28] MEDS: PROTONIX INJ 40 MG VIAL IVP SCH ×2 (09:24→21:46)
[2021-09-28] MEDS: COZAAR PO SCH (09:24)
[2021-09-28] MEDS: NORVASC TAB 5 MG PO SCH (09:24)
[2021-09-28] MEDS: K-DUR TAB 20 MEQ PO PRN (09:25)
[2021-09-28] MEDS: ZITHROMAX INJ 500 MG VIAL 500 MG in D5W 250 ML IV 250 ML IV SCH (10:37)
[2021-09-28] MEDS: FLOMAX PO SCH (21:45)
[2021-09-28] MEDS: SEROquel TAB 25 mg PO SCH (21:46)
[2021-09-29] MEDS: NS + KCL 20 MEQ/L 1,000 ML IV SCH (03:19)
[2021-09-29] MEDS: DEMEROL INJ IVP PRN ×4 (03:31→21:05)
[2021-09-29] MEDS: BENTYL I.M. INJ 10 MG IM SCH ×2 (03:31→09:02)
[2021-09-29] MEDS: ZOFRAN INJ 4 MG VIAL IVP PRN ×3 (03:32→17:08)
[2021-09-29 07:00] LABS: BASOPHILS % (AUTO) 0.5 % (0.2-1.0); EOSINOPHILS # (AUTO) 0.3 x10^3/uL (0.0-0.2); EOSINOPHILS % (AUTO) 4.4 % (0.9-2.9); HEMATOCRIT 38.5 % (42.0-54.0); HEMOGLOBIN 13.9 g/dL (13.5-18.0); LYMPHOCYTES # (AUTO) 1.4 X10^3/uL (1.3-2.9); MEAN CORPUSCULAR HGB CONC 36.1 g/dL (33.0-35.0); MEAN CORPUSCULAR VOLUME 85.8 fL (80.0-100.0); MEAN PLATELET VOLUME 7.4 fL (7.4-11.0); MONOCYTES # (AUTO) 0.5 x10^3/uL (0.3-0.8); MONOCYTES % (AUTO) 8.1 % (0.0-13.0); NEUTROPHILS # (AUTO) 3.8 x10^3/uL (2.2-4.8); RED BLOOD COUNT 4.49 X10^6/uL (4.7-6.0); RED CELL DISTRIBUTION WIDTH 13.7 % (11.6-16.5); WHITE BLOOD COUNT 5.9 X10^3/uL (3.6-10.0)
[2021-09-29 07:24] LABS: ALANINE AMINOTRANSFERASE 17 Units/L (12-78); ALBUMIN 3.3 g/dL (3.4-5.0); ALKALINE PHOSPHATASE 56 Units/L (46-116); ASPARTATE AMINO TRANSFERASE 13 Units/L (15-37); BLOOD UREA NITROGEN 9 mg/dL (7-18); CARBON DIOXIDE 28.3 mmol/L (21-32); CHLORIDE 106 mmol/L (98-107); COR CA(FOR HYPOALB) 8.6 mg/dL (8.5-10.1); CREATININE 0.96 mg/dL (0.70-1.30); SODIUM 141 mmol/L (136-145); eGFR NON BLACK RACES > 60 (>60)
[2021-09-29] MEDS: ZITHROMAX INJ 500 MG VIAL 500 MG in D5W 250 ML IV 250 ML IV SCH (09:01)
[2021-09-29] MEDS: LOPRESSOR TAB 50 MG PO SCH ×2 (09:01→21:25)
[2021-09-29] MEDS: PROTONIX INJ 40 MG VIAL IVP SCH ×2 (09:01→21:25)
[2021-09-29] MEDS: NORVASC TAB 5 MG PO SCH (09:02)
[2021-09-29] MEDS: COZAAR PO SCH (09:02)
--- NOTE | 2021-09-29 11:26 | DR.PROGNOT ---
Hospital Progress Notes - Progress Note for Day of: Progress Note Date: 09/29/21 - Chief Complaint Chief Complaint: still having moderate abdominal pain . no vomiting .. toleraring liquid diet . KUB still showing improved SBO .. stool culture showed Campy bacteria .. otherwise normal lab work . - Past Medical Family Social History Past Med/Fam/Surg Hx: No changes since H&P Allergies: Allergies No Known Drug Allergies [NKDA] Allergy (Verified 10/22/19 18:33) - Review Of Systems ROS: No change since H&P - Vital Signs Vital Signs: Temperature 97.8 F Pulse Rate [Left Radial] 70 Pulse Rate 66 Respiratory Rate 18 Blood Pressure [Left Arm] 139/79 Blood Pressure 95/61 O2 Sat by Pulse Oximetry 97 - Physical Exam Oriented: Normal Eyes: Normal Ear: Normal Nose: Normal Throat: Normal Cardiovascular: Normal : Normal GI:Auscultation: Increased GI: Tenderness: Diffuse (soft abdomen with moderate distention and diffuse tenderness .. BS+) Skin: Decreased Turgur Musculoskeletal: Back:Lumbar Psychiatric: Normal Mood Description: Calm Speech Pattern: Clear - Laboratory and Diagnostics Result Diagrams: 09/29/21 06:42 09/29/21 06:42 Labs: 09/25/21 22:45 Stool Stool Culture - Final 09/25/21 22:45 Stool - Final Laboratory WBC 5.9 X10^3/uL (3.6-10.0) 09/29/21 06:42 RBC 4.49 X10^6/uL (4.7-6.0) L 09/29/21 06:42 Hgb 13.9 g/dL (13.5-18.0) 09/29/21 06:42 Hct 38.5 % (42.0-54.0) L 09/29/21 06:42 MCV 85.8 fL (80.0-100.0) 09/29/21 06:42 MCH 31.0 pg (27.0-34.0) 09/29/21 06:42 MCHC 36.1 g/dL (33.0-35.0) H 09/29/21 06:42 RDW 13.7 % (11.6-16.5) 09/29/21 06:42 Plt Count 232 X10^3/uL (150.0-450.0) 09/29/21 06:42 MPV 7.4 fL (7.4-11.0) 09/29/21 06:42 Neut % (Auto) 64.0 % (42.0-75.0) 09/29/21 06:42 Lymph % (Auto) 23.0 % (21.0-51.0) 09/29/21 06:42 [place] % (Auto) 8.1 % (0.0-13.0) 09/29/21 06:42 Eos % (Auto) 4.4 % (0.9-2.9) H 09/29/21 06:42 Baso % (Auto) 0.5 % (0.2-1.0) 09/29/21 06:42 Neut # (Auto) 3.8 x10^3/uL (2.2-4.8) 09/29/21 06:42 Lymph # (Auto) 1.4 X10^3/uL (1.3-2.9) 09/29/21 06:42 [place] # (Auto) 0.5 x10^3/uL (0.3-0.8) 09/29/21 06:42 Eos # (Auto) 0.3 x10^3/uL (0.0-0.2) H 09/29/21 06:42 Baso # (Auto) 0.0 X10^3/uL (0.0-0.1) 09/29/21 06:42 Absolute Nucleated RBC 0.0 /100WBC 09/29/21 06:42 Sodium 141 mmol/L (136-145) 09/29/21 06:42 Corrected Sodium TNP 09/29/21 06:42 Potassium 3.8 mmol/L (3.5-5.1) 09/29/21 06:42 Chloride 106 mmol/L (98-107) 09/29/21 06:42 Carbon Dioxide 28.3 mmol/L (21-32) 09/29/21 06:42 BUN 9 mg/dL (7-18) 09/29/21 06:42 Creatinine 0.96 mg/dL (0.70-1.30) 09/29/21 06:42 Est GFR (MDRD) Af Amer > 60 (>60) 09/29/21 06:42 Est GFR (MDRD) Non-Af > 60 (>60) 09/29/21 06:42 Glucose 92 mg/dL (65-99) 09/29/21 06:42 Calcium 8.0 mg/dL (8.5-10.1) L 09/29/21 06:42 Corrected Calcium 8.6 mg/dL (8.5-10.1) 09/29/21 06:42 Magnesium 2.0 mg/dL (1.7-2.9) 09/27/21 04:56 Total Bilirubin 0.60 mg/dL (0.2-1.0) 09/29/21 06:42 AST 13 Units/L (15-37) L 09/29/21 06:42 ALT 17 Units/L (12-78) 09/29/21 06:42 Alkaline Phosphatase 56 Units/L (46-116) 09/29/21 06:42 Total Protein 6.0 g/dL (6.4-8.2) L 09/29/21 06:42 Albumin 3.3 g/dL (3.4-5.0) L 09/29/21 06:42 Globulin 2.7 g/dL (2.5-4.5) 09/29/21 06:42 Albumin/Globulin Ratio 1.2 Ratio (1.1-2.1) 09/29/21 06:42 Amylase 24 Units/L (25-115) L 09/24/21 22:00 Lipase 62 Units/L (73-393) L 09/24/21 22:00 Specimen Type Clean catch urine 09/24/21 22: Urine Color Yellow (YELLOW) 09/24/21 22: Urine Appearance Slightly hazy (CLEAR) 09/24/21 22: Urine pH 5.0 (5.0 - 8.0) 09/24/21 22:23 Ur Specific [place] 1.020 (1.000-1.030) 09/24/21 22: Urine Protein 2+ (NEGATIVE) 09/24/21: Urine Glucose (UA) Negative (NEGATIVE) 09/24/21 22: Urine Ketones 3+ (NEGATIVE) 09/24/21 22:23 Urine Blood 1+ (NEGATIVE) 09/24/21 22: Urine Nitrite Negative (NEGATIVE) 09/24/21: Urine Bilirubin 1+ (NEGATIVE) 09/24/21 22:23 Urine Urobilinogen Normal (NORMAL) 09/24/21 22:23 Ur Leukocyte Esterase 1+ (NEGATIVE) 09/24/21 22:23 Urine RBC 5-10 /HPF (0-3) A 09/24/21 22:23 Urine WBC 3-5 /HPF (0-5) 09/24/21 22:23 Ur Squamous Epith Cells Rare /HPF (NEGATIVE) 09/24/21 22:23 Urine Bacteria Trace /HPF (NEGATIVE) 09/24/21 22:23 Urine Mucus Few /HPF (NEGATIVE) 09/24/21 22:23 Ur Culture Indicated? No/not indicated 09/24/21 22:23 Stool Description 10 g. liquid 09/25/21 22:45 Stl Occult Blood (IFOB) Negative (NEGATIVE) 09/25/21 22:45 Stool for White Cells Positive (NEGATIVE) A 09/25/21 22:45 Stl C. diff Tox B Gene Negative (NEGATIVE) 09/25/21 22:45 Stl C. diff [id number] Presumptive negative (NEGATIVE) 09/25/21 22:45 Stool H. pylori Ag Negative (NEGATIVE) 09/25/21 22:45 SARS CoV-2 RNA Rapid EMETERIO Negative (NEGATIVE) 09/25/21 01:47 - Assessment and Plan 1: improving partial SBO .. to advance diet and observe .. 2: improving partial SBO . positive Campy Bacteria in stool . was started on Zithromax . full liquid diet . 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
--- NOTE | 2021-09-29 11:47 | RAD ---
HISTORYPossible SBOSTUDYKUBCOMPARISONAugust 2019FINDINGSSubmitted images are technically limited with decreased radiographic detail secondary to marked soft tissue attenuation.There is moderate gaseous dilatation through scattered segments of small bowel and colon. No mass formation or unusual fluid collection or other acute process is noted.IMPRESSIONThe intestinal gas pattern is more in favor of ileus rather than an obstructing process. See above.Electronically signed by: LEONARDO BOB (Sep 29, 2021 11:45:45)
[2021-09-29] MEDS: LEVAQUIN TAB 750 MG PO SCH (12:07)
[2021-09-29] MEDS: ZITHROMAX TAB 250 MG PO SCH (12:08)
[2021-09-29] MEDS: SEROquel TAB 25 mg PO SCH (21:24)
[2021-09-29] MEDS: FLOMAX PO SCH (21:24)
[2021-09-30] MEDS: NS + KCL 20 MEQ/L 1,000 ML IV SCH ×4 (04:10→22:56)
[2021-09-30] MEDS: ZOFRAN INJ 4 MG VIAL IVP PRN ×2 (05:10→14:37)
[2021-09-30] MEDS: DEMEROL INJ IVP PRN ×4 (05:13→20:28)
[2021-09-30 05:26] LABS: BASOPHILS % (AUTO) 0.3 % (0.2-1.0); EOSINOPHILS # (AUTO) 0.2 x10^3/uL (0.0-0.2); EOSINOPHILS % (AUTO) 2.7 % (0.9-2.9); HEMATOCRIT 39.7 % (42.0-54.0); HEMOGLOBIN 14.3 g/dL (13.5-18.0); LYMPHOCYTES # (AUTO) 1.4 X10^3/uL (1.3-2.9); LYMPHOCYTES % (AUTO) 21.6 % (21.0-51.0); MEAN CORPUSCULAR HEMOGLOBIN 30.7 pg (27.0-34.0); MEAN CORPUSCULAR VOLUME 85.4 fL (80.0-100.0); MEAN PLATELET VOLUME 7.5 fL (7.4-11.0); MONOCYTES # (AUTO) 0.5 x10^3/uL (0.3-0.8); MONOCYTES % (AUTO) 7.8 % (0.0-13.0); NEUTROPHILS # (AUTO) 4.5 x10^3/uL (2.2-4.8); NEUTROPHILS % (AUTO) 67.6 % (42.0-75.0); RED BLOOD COUNT 4.65 X10^6/uL (4.7-6.0); RED CELL DISTRIBUTION WIDTH 14.4 % (11.6-16.5); WHITE BLOOD COUNT 6.7 X10^3/uL (3.6-10.0)
[2021-09-30 05:34] LABS: ALANINE AMINOTRANSFERASE 15 Units/L (12-78); ALBUMIN 3.3 g/dL (3.4-5.0); ALKALINE PHOSPHATASE 57 Units/L (46-116); ASPARTATE AMINO TRANSFERASE 8 Units/L (15-37); BLOOD UREA NITROGEN 11 mg/dL (7-18); CALCIUM 8.1 mg/dL (8.5-10.1); CARBON DIOXIDE 29.9 mmol/L (21-32); CHLORIDE 106 mmol/L (98-107); COR CA(FOR HYPOALB) 8.7 mg/dL (8.5-10.1); CREATININE 0.96 mg/dL (0.70-1.30); SODIUM 142 mmol/L (136-145); TOTAL PROTEIN 5.9 g/dL (6.4-8.2); eGFR NON BLACK RACES > 60 (>60)
[2021-09-30] MEDS: K-DUR TAB 20 MEQ PO PRN (06:27)
[2021-09-30] MEDS: ZITHROMAX TAB 250 MG PO SCH (09:02)
[2021-09-30] MEDS: LOPRESSOR TAB 50 MG PO SCH ×2 (09:02→20:27)
[2021-09-30] MEDS: COZAAR PO SCH (09:02)
[2021-09-30] MEDS: NORVASC TAB 5 MG PO SCH (09:02)
[2021-09-30] MEDS: LEVAQUIN TAB 750 MG PO SCH (09:02)
[2021-09-30] MEDS: PROTONIX INJ 40 MG VIAL IVP SCH ×2 (09:04→20:28)
--- NOTE | 2021-09-30 10:29 | DR.PROGNOT ---
Hospital Progress Notes - Progress Note for Day of: Progress Note Date: 09/30/21 - Chief Complaint Chief Complaint: moderate abdominal pain more on the Lt side . c/o nausea , no vomiting ... toleraring liquid diet . having loose BM .no bleeding . - Past Medical Family Social History Past Med/Fam/Surg Hx: No changes since H&P Allergies: Allergies No Known Drug Allergies [NKDA] Allergy (Verified 10/22/19 18:33) - Review Of Systems ROS: No change since H&P - Vital Signs Vital Signs: Temperature 97.7 F Pulse Rate [Left Radial] 70 Pulse Rate 62 Respiratory Rate 15 Blood Pressure [Left Arm] 139/79 Blood Pressure 111/68 O2 Sat by Pulse Oximetry 95 - Physical Exam Oriented: Normal Eyes: Normal Ear: Normal Nose: Normal Throat: Normal Cardiovascular: Normal : Normal GI:Auscultation: Normal GI:Palpation: Normal GI: Tenderness: Diffuse (soft abdomen with diffuse tenderness LT side . nio rebound .. BS+) Skin: Decreased Turgur Musculoskeletal: Back:Lumbar Psychiatric: Normal Mood Description: Calm Speech Pattern: Clear - Laboratory and Diagnostics Result Diagrams: 09/30/21 04:47 09/30/21 04:47 Labs: 09/25/21 22:45 Stool Stool Culture - Final 09/25/21 22:45 Stool - Final Laboratory WBC 6.7 X10^3/uL (3.6-10.0) 09/30/21 04:47 RBC 4.65 X10^6/uL (4.7-6.0) L 09/30/21 04:47 Hgb 14.3 g/dL (13.5-18.0) 09/30/21 04:47 Hct 39.7 % (42.0-54.0) L 09/30/21 04:47 MCV 85.4 fL (80.0-100.0) 09/30/21 04:47 MCH 30.7 pg (27.0-34.0) 09/30/21 04:47 MCHC 36.0 g/dL (33.0-35.0) H 09/30/21 04:47 RDW 14.4 % (11.6-16.5) 09/30/21 04:47 Plt Count 253 X10^3/uL (150.0-450.0) 09/30/21 04:47 MPV 7.5 fL (7.4-11.0) 09/30/21 04:47 Neut % (Auto) 67.6 % (42.0-75.0) 09/30/21 04:47 Lymph % (Auto) 21.6 % (21.0-51.0) 09/30/21 04:47 [place] % (Auto) 7.8 % (0.0-13.0) 09/30/21 04:47 Eos % (Auto) 2.7 % (0.9-2.9) 09/30/21 04:47 Baso % (Auto) 0.3 % (0.2-1.0) 09/30/21 04:47 Neut # (Auto) 4.5 x10^3/uL (2.2-4.8) 09/30/21 04:47 Lymph # (Auto) 1.4 X10^3/uL (1.3-2.9) 09/30/21 04:47 [place] # (Auto) 0.5 x10^3/uL (0.3-0.8) 09/30/21 04:47 Eos # (Auto) 0.2 x10^3/uL (0.0-0.2) 09/30/21 04:47 Baso # (Auto) 0.0 X10^3/uL (0.0-0.1) 09/30/21 04:47 Absolute Nucleated RBC 0.0 /100WBC 09/30/21 04:47 Sodium 142 mmol/L (136-145) 09/30/21 04:47 Corrected Sodium TNP 09/30/21 04:47 Potassium 3.6 mmol/L (3.5-5.1) 09/30/21 04:47 Chloride 106 mmol/L (98-107) 09/30/21 04:47 Carbon Dioxide 29.9 mmol/L (21-32) 09/30/21 04:47 BUN 11 mg/dL (7-18) 09/30/21 04:47 Creatinine 0.96 mg/dL (0.70-1.30) 09/30/21 04:47 Est GFR (MDRD) Af Amer > 60 (>60) 09/30/21 04:47 Est GFR (MDRD) Non-Af > 60 (>60) 09/30/21 04:47 Glucose 95 mg/dL (65-99) 09/30/21 04:47 Calcium 8.1 mg/dL (8.5-10.1) L 09/30/21 04:47 Corrected Calcium 8.7 mg/dL (8.5-10.1) 09/30/21 04:47 Magnesium 2.2 mg/dL (1.7-2.9) 09/30/21 04:47 Total Bilirubin 0.70 mg/dL (0.2-1.0) 09/30/21 04:47 AST 8 Units/L (15-37) L 09/30/21 04:47 ALT 15 Units/L (12-78) 09/30/21 04:47 Alkaline Phosphatase 57 Units/L (46-116) 09/30/21 04:47 Total Protein 5.9 g/dL (6.4-8.2) L 09/30/21 04:47 Albumin 3.3 g/dL (3.4-5.0) L 09/30/21 04:47 Globulin 2.6 g/dL (2.5-4.5) 09/30/21 04:47 Albumin/Globulin Ratio 1.3 Ratio (1.1-2.1) 09/30/21 04:47 Amylase 24 Units/L (25-115) L 09/24/21 22:00 Lipase 62 Units/L (73-393) L 09/24/21 22:00 Specimen Type Clean catch urine 09/24/21 22: Urine Color Yellow (YELLOW) 09/24/21 22: Urine Appearance Slightly hazy (CLEAR) 09/24/21 22: Urine pH 5.0 (5.0 - 8.0) 09/24/21 22:23 Ur Specific [place] 1.020 (1.000-1.030) 09/24/21 22: Urine Protein 2+ (NEGATIVE) 09/24/21 22: Urine Glucose (UA) Negative (NEGATIVE) 09/24/21 22: Urine Ketones 3+ (NEGATIVE) 09/24/21 22:23 Urine Blood 1+ (NEGATIVE) 09/24/21 22: Urine Nitrite Negative (NEGATIVE) 09/24/21 22: Urine Bilirubin 1+ (NEGATIVE) 09/24/21 22:23 Urine Urobilinogen Normal (NORMAL) 09/24/21 22:23 Ur Leukocyte Esterase 1+ (NEGATIVE) 09/24/21 22:23 Urine RBC 5-10 /HPF (0-3) A 09/24/21 22:23 Urine WBC 3-5 /HPF (0-5) 09/24/21 22:23 Ur Squamous Epith Cells Rare /HPF (NEGATIVE) 09/24/21 22:23 Urine Bacteria Trace /HPF (NEGATIVE) 09/24/21 22:23 Urine Mucus Few /HPF (NEGATIVE) 09/24/21 22:23 Ur Culture Indicated? No/not indicated 09/24/21 22:23 Stool Description 10 g. liquid 09/25/21 22:45 Stl Occult Blood (IFOB) Negative (NEGATIVE) 09/25/21 22:45 Stool for White Cells Positive (NEGATIVE) A 09/25/21 22:45 Stl C. diff Tox B Gene Negative (NEGATIVE) 09/25/21 22:45 Stl C. diff [id number] Presumptive negative (NEGATIVE) 09/25/21 22:45 Stool H. pylori Ag Negative (NEGATIVE) 09/25/21 22:45 SARS CoV-2 RNA Rapid EMETERIO Negative (NEGATIVE) 09/25/21 01:47 - Assessment and Plan 1: improving partial SBO .. to advance diet and observe .. 2: subsiding partial SBO . positive Campy Bacteria in stool . was started on Zithromax . on soft diet . to d/c in am .. 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
[2021-09-30] MEDS ORDERED: PHENERGAN INJ 25 MG IM PRN (10:44)
--- NOTE | 2021-09-30 11:18 | RAD ---
HISTORYPossible SBOSTUDYKUBCOMPARISONAugust 2021FINDINGSThere is minimal gaseous dilatation of scattered segments of small bowel and colon. There is no evidence for developing small bowel dilatation to suggest obstruction. Surgical clips again noted right upper quadrant.IMPRESSIONNo evidence for localized ileus or definite bowel obstruction.Electronically signed by: LEONARDO BOB (Sep 30, 2021 11:16:26)
[2021-09-30] MEDS: FLOMAX PO SCH (20:27)
[2021-09-30] MEDS: SEROquel TAB 25 mg PO SCH (20:28)
[2021-10-01] MEDS: NS + KCL 20 MEQ/L 1,000 ML IV SCH ×2 (03:22→08:00)
[2021-10-01] MEDS: ZOFRAN INJ 4 MG VIAL IVP PRN ×2 (04:02→11:46)
[2021-10-01] MEDS: DEMEROL INJ IVP PRN (04:02)
[2021-10-01 05:21] LABS: BASOPHILS # (AUTO) 0.1 X10^3/uL (0.0-0.1); EOSINOPHILS # (AUTO) 0.2 x10^3/uL (0.0-0.2); EOSINOPHILS % (AUTO) 3.8 % (0.9-2.9); HEMATOCRIT 38.4 % (42.0-54.0); HEMOGLOBIN 13.7 g/dL (13.5-18.0); MEAN CORPUSCULAR HEMOGLOBIN 30.7 pg (27.0-34.0); MEAN CORPUSCULAR HGB CONC 35.6 g/dL (33.0-35.0); MEAN CORPUSCULAR VOLUME 86.1 fL (80.0-100.0); MEAN PLATELET VOLUME 7.7 fL (7.4-11.0); MONOCYTES # (AUTO) 0.4 x10^3/uL (0.3-0.8); MONOCYTES % (AUTO) 6.1 % (0.0-13.0); NEUTROPHILS # (AUTO) 4.7 x10^3/uL (2.2-4.8); NEUTROPHILS % (AUTO) 72.1 % (42.0-75.0); RED BLOOD COUNT 4.45 X10^6/uL (4.7-6.0); RED CELL DISTRIBUTION WIDTH 13.8 % (11.6-16.5); WHITE BLOOD COUNT 6.4 X10^3/uL (3.6-10.0)
[2021-10-01 05:30] LABS: ALANINE AMINOTRANSFERASE 13 Units/L (12-78); ALKALINE PHOSPHATASE 54 Units/L (46-116); ASPARTATE AMINO TRANSFERASE 10 Units/L (15-37); BLOOD UREA NITROGEN 11 mg/dL (7-18); CALCIUM 7.9 mg/dL (8.5-10.1); CARBON DIOXIDE 25.7 mmol/L (21-32); CHLORIDE 108 mmol/L (98-107); COR CA(FOR HYPOALB) 8.7 mg/dL (8.5-10.1); CREATININE 0.92 mg/dL (0.70-1.30); SODIUM 142 mmol/L (136-145); TOTAL PROTEIN 5.5 g/dL (6.4-8.2); eGFR NON BLACK RACES > 60 (>60)
[2021-10-01] MEDS: COZAAR PO SCH (09:26)
[2021-10-01] MEDS: NORVASC TAB 5 MG PO SCH (09:26)
[2021-10-01] MEDS: LEVAQUIN TAB 750 MG PO SCH (09:26)
[2021-10-01] MEDS: LOPRESSOR TAB 50 MG PO SCH (09:26)
[2021-10-01] MEDS: ZITHROMAX TAB 250 MG PO SCH (09:27)
[2021-10-01] MEDS: PROTONIX INJ 40 MG VIAL IVP SCH (09:27)
[2021-10-01 15:15] VITALS: BP 141/86
== END 2021-10-01 14:20 | disposition home or self-care (01) ==
LOC: U 20:09 → ER 20:09 → U 09-25 02:34 → MED/SURG 09-25 11:02
PROVIDERS: ADMIT Surgery; ATTEND Internal Medicine
DX: K56.690 Other partial intestinal obstruction; E87.6 Hypokalemia; A04.5 Campylobacter enteritis; R19.7 Diarrhea, unspecified; I10 Essential (primary) hypertension; R10.84 Generalized abdominal pain; R11.2 Nausea with vomiting, unspecified; Z20.822 Contact with and (suspected) exposure to COVID-19; M51.37 Other intervertebral disc degeneration, lumbosacral region

== ENCOUNTER 2022-01-14 13:34 | Observation (INO) ==
[2022-01-14 15:00] LABS: BASOPHILS % (AUTO) 0.3 % (0.2-1.0); EOSINOPHILS # (AUTO) 0.1 x10^3/uL (0.0-0.2); EOSINOPHILS % (AUTO) 1.7 % (0.9-2.9); HEMATOCRIT 43.1 % (42.0-54.0); HEMOGLOBIN 15.1 g/dL (13.5-18.0); LYMPHOCYTES # (AUTO) 1.3 X10^3/uL (1.3-2.9); LYMPHOCYTES % (AUTO) 17.6 % (21.0-51.0); MEAN CORPUSCULAR HEMOGLOBIN 30.1 pg (27.0-34.0); MEAN CORPUSCULAR HGB CONC 35.1 g/dL (33.0-35.0); MEAN CORPUSCULAR VOLUME 85.8 fL (80.0-100.0); MEAN PLATELET VOLUME 7.5 fL (7.4-11.0); MONOCYTES # (AUTO) 0.5 x10^3/uL (0.3-0.8); NEUTROPHILS # (AUTO) 5.6 x10^3/uL (2.2-4.8); NEUTROPHILS % (AUTO) 73.4 % (42.0-75.0); RED BLOOD COUNT 5.03 X10^6/uL (4.7-6.0); RED CELL DISTRIBUTION WIDTH 13.3 % (11.6-16.5); WHITE BLOOD COUNT 7.6 X10^3/uL (3.6-10.0)
--- NOTE | 2022-01-14 15:04 | EKG ---
Test Reason : chest pain Blood Pressure : */* mmHG Vent. Rate : 67 BPM Atrial Rate : 67 BPM P-R Int : 172 ms QRS Dur : 116 ms QT Int : 414 ms P-R-T Axes : 16 24 37 degrees QTc Int : 437 ms Normal sinus rhythm Normal ECG Referred By: Confirmed By:
[2022-01-14 15:05] LABS: INR 1.14 (0.8-1.3)
[2022-01-14 15:13] LABS: ALANINE AMINOTRANSFERASE 36 Units/L (12-78); ALBUMIN 3.9 g/dL (3.4-5.0); ALKALINE PHOSPHATASE 71 Units/L (46-116); ASPARTATE AMINO TRANSFERASE 31 Units/L (15-37); BLOOD UREA NITROGEN 15 mg/dL (7-18); CALCIUM 8.7 mg/dL (8.5-10.1); CARBON DIOXIDE 26.6 mmol/L (21-32); CHLORIDE 106 mmol/L (98-107); COR NA(FOR HYPERGLY) 141 mmol/L (136-145); CREATINE KINASE 61 Units/L (39-308); CREATININE 0.95 mg/dL (0.70-1.30); SODIUM 141 mmol/L (136-145); TOTAL PROTEIN 6.6 g/dL (6.4-8.2); eGFR NON BLACK RACES > 60 (>60)
[2022-01-14] MEDS: NS 1,000 ML IV 1,000 ML IV SCH (15:15)
[2022-01-14 16:09] VITALS: BMI 36.3
[2022-01-14] MEDS ORDERED: PREVNAR 13 SYRINGE IM ONE (16:09)
[2022-01-14] MEDS ORDERED: FLUZONE II4 or AFLURIA II4 IM ONE (16:09)
[2022-01-14 19:15] LABS: BILIRUBIN,URINE NEGATIVE (NEGATIVE); BLOOD/HEMOGLOBIN,URINE NEGATIVE (NEGATIVE); GLUCOSE, URINE NEGATIVE (NEGATIVE); KETONES,URINE NEGATIVE (NEGATIVE); LEUKOCYTE ESTERASE ,URINE NEGATIVE (NEGATIVE); NITRITES,URINE NEGATIVE (NEGATIVE); PROTEIN,URINE NEGATIVE (NEGATIVE); UROBILINOGEN,URINE NORMAL (NORMAL)
[2022-01-14 19:22] LABS: APPEARANCE,URINE CLEAR (CLEAR); COLOR,URINE YELLOW (YELLOW)
--- NOTE | 2022-01-14 20:20 | EKG ---
Test Reason : chest pain Blood Pressure : */* mmHG Vent. Rate : 64 BPM Atrial Rate : 64 BPM P-R Int : 176 ms QRS Dur : 114 ms QT Int : 436 ms P-R-T Axes : 4 22 36 degrees QTc Int : 449 ms Normal sinus rhythm Normal ECG When compared with ECG of 14-JAN-2022 14:39, (Unconfirmed) No significant change was found Referred By: Confirmed By:
[2022-01-14] MEDS: NORCO 5/325 MG TAB PO PRN (20:44)
--- NOTE | 2022-01-15 01:07 | EKG ---
Test Reason : chest pain Blood Pressure : */* mmHG Vent. Rate : 68 BPM Atrial Rate : 68 BPM P-R Int : 180 ms QRS Dur : 116 ms QT Int : 442 ms P-R-T Axes : 25 22 30 degrees QTc Int : 469 ms Normal sinus rhythm Normal ECG When compared with ECG of 14-JAN-2022 20:16, (Unconfirmed) No significant change was found Referred By: Confirmed By:
[2022-01-15] MEDS: NORCO 5/325 MG TAB PO PRN (03:18)
[2022-01-15] MEDS: NS 1,000 ML IV 1,000 ML IV SCH ×2 (03:45→17:53)
[2022-01-15 06:04] LABS: BASOPHILS % (AUTO) 0.4 % (0.2-1.0); EOSINOPHILS # (AUTO) 0.2 x10^3/uL (0.0-0.2); HEMATOCRIT 38.8 % (42.0-54.0); HEMOGLOBIN 13.8 g/dL (13.5-18.0); LYMPHOCYTES # (AUTO) 1.1 X10^3/uL (1.3-2.9); LYMPHOCYTES % (AUTO) 20.7 % (21.0-51.0); MEAN CORPUSCULAR HEMOGLOBIN 30.5 pg (27.0-34.0); MEAN CORPUSCULAR HGB CONC 35.7 g/dL (33.0-35.0); MEAN CORPUSCULAR VOLUME 85.6 fL (80.0-100.0); MEAN PLATELET VOLUME 7.6 fL (7.4-11.0); MONOCYTES # (AUTO) 0.4 x10^3/uL (0.3-0.8); MONOCYTES % (AUTO) 7.2 % (0.0-13.0); NEUTROPHILS # (AUTO) 3.7 x10^3/uL (2.2-4.8); NEUTROPHILS % (AUTO) 68.7 % (42.0-75.0); RED BLOOD COUNT 4.53 X10^6/uL (4.7-6.0); RED CELL DISTRIBUTION WIDTH 13.3 % (11.6-16.5); WHITE BLOOD COUNT 5.4 X10^3/uL (3.6-10.0)
[2022-01-15 06:26] LABS: ALANINE AMINOTRANSFERASE 38 Units/L (12-78); ALBUMIN 3.4 g/dL (3.4-5.0); ALKALINE PHOSPHATASE 59 Units/L (46-116); ASPARTATE AMINO TRANSFERASE 40 Units/L (15-37); BLOOD UREA NITROGEN 13 mg/dL (7-18); CARBON DIOXIDE 29.1 mmol/L (21-32); CHLORIDE 106 mmol/L (98-107); CREATININE 0.81 mg/dL (0.70-1.30); SODIUM 141 mmol/L (136-145); TOTAL PROTEIN 5.7 g/dL (6.4-8.2); eGFR NON BLACK RACES > 60 (>60)
[2022-01-15 06:28] LABS: CHOL/HDL RATIO 5.5 (0.0-5.0)
[2022-01-15] MEDS ORDERED: K-DUR TAB 20 MEQ PO PRN (06:32)
[2022-01-15] MEDS ORDERED: POTASSIUM CHLORIDE LIQ 20 MEQ UDC PO PRN (06:32)
[2022-01-15] MEDS ORDERED: MICRO K EXTEN CAP 10 MEQ PO PRN (06:32)
[2022-01-15] MEDS ORDERED: K-RIDER 10 MEQ/NS 100 ML 10 MEQ/100 ML BAG IV PRN (06:32)
[2022-01-15] MEDS ORDERED: KLOR-CON PO PRN (06:32)
[2022-01-15] MEDS ORDERED: ZANAFLEX PO PRN (08:16)
--- NOTE | 2022-01-15 08:24 | DR.H&P ---
H&P - History & Physical for Day of: H&P Date: 01/14/22 - Chief Complaint Chief Complaint: chest pain, sob, worse on exertion - History of Present Illness History of Present Illness: PT IS 51 WM, DIRECT ADMIT FROM DR SAY YOUNGBLOOD OFFICE WITH CO CHEST PAIN AND SOB. PT REPORTS DYSPNEA ON EXERTION, FEELING WEAK. 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 PT HAS BEEN UNDER THE CARE OF DR DA SILVA AT [facility] IN [place] [facility] FOR MONITORING. PT REPORTS LAST CARDIAC CATH ~3 YEARS AGO. PT DENIES ANY OTHER RECENT FLU OR COVID 19 SYMPTOMS. PT HAS PMH OF HTN, CHRISTIAN, GERD, OA AND LUMBAR SPINE DDD. - Past Medical History Past Medical History: Arthritis, GERD, Hypertension Additional Medical History: SBO - Past Surgical History Surgical History: Appendectomy, Cholecystectomy Additional Surgical History: Lysis of adhesions for SBO, Testicle removed - Family History Family Medical History: Cancer, Hypertension - Social History Does patient currently use any type of tobacco product: No Have you used tobacco products in the last 12 months: No Type of Tobacco Use: None Does any household member use tobacco: No Alcohol Use: None Drug Use: None - Medications Home Medications: No Known Drug Allergies [NKDA] Allergy (Verified 01/14/22 15:08) - Review of Systems Constitutional: Weakness Eyes: No Symptoms Reported Respiratory: No Symptoms Reported, Shortness of Breath, SOB with Excertion Cardiovascular: Chest Pain, Edema Genitourinary: No Symptoms Reported Musculoskeletal: Back Pain Skin: No Symptoms Reported Neurological: Weakness - Physical Exam Vital Signs: Temperature 98.5 F Pulse Rate [Right Brachial] 66 Respiratory Rate 19 Blood Pressure [Right Arm] 116/55 Blood Pressure [Left Arm] 118/78 O2 Sat by Pulse Oximetry 97 Oriented: Normal Eyes: Normal Ear: Normal Nose: Normal Throat: Normal Respiratory: RLL Diminished, LLL Diminished Cardiovascular: Normal, Edema : Normal Auscultation: Bowel Sounds: Normal Palpation: Normal Tenderness: Normal Skin: Normal Musculoskeletal: Back:Lumbar Psychiatric: Anxiety Speech Pattern: Clear, Appropriate - Assessment/Plan (1) Chest pain Status: Acute Plan: ADMIT, SERIAL CE AND EKG. CXR ON ADMISSION, D DIMER. PRN SUPPLEMENTAL O2. BP CONTROL, VERIFY HOME MEDICATION (2) RIVERA (dyspnea on exertion) Status: Acute (3) Hypertension Qualifiers: Hypertension type: primary hypertension Qualified Code(s): I10 - Essential (primary) hypertension Status: Chronic (4) Hyperlipidemia Qualifiers: Hyperlipidemia type: mixed hyperlipidemia Qualified Code(s): E78.2 - Mixed hyperlipidemia Status: Chronic (5) GERD (gastroesophageal reflux disease) Status: Chronic (6) Lumbar and sacral spondyloarthritis Status: Chronic - Allergies Allergies/Adverse Reactions: Allergies Allergy/AdvReac Type Severity Reaction Status Date / Time No Known Drug Allergies Allergy Verified 01/14/22 15:08 [NKDA]
[2022-01-15] MEDS: NORCO 10/325 TAB PO PRN ×2 (08:58→17:53)
[2022-01-15] MEDS: NORVASC TAB 5 MG PO SCH (08:59)
[2022-01-15] MEDS: LOPRESSOR TAB 25 MG PO SCH ×3 (08:59→20:57)
[2022-01-15] MEDS ORDERED: FLUZONE II4 or AFLURIA II4 IM ONE (09:00)
[2022-01-15] MEDS ORDERED: PREVNAR 13 SYRINGE IM ONE (09:00)
[2022-01-15] MEDS: COZAAR PO SCH (09:00)
[2022-01-15 16:43] LABS: ABG BASE EXCESS 5.3 mmol/L (-2.0-2.0); ABG HCO3 29.9 mmol/L (22-26)
[2022-01-15] MEDS: KLONOPIN TAB 1 MG PO SCH ×2 (20:54→20:57)
[2022-01-15] MEDS ORDERED: SEROquel TAB 25 mg PO SCH (21:00)
[2022-01-16] MEDS: NS 1,000 ML IV 1,000 ML IV SCH (05:38)
[2022-01-16] MEDS: NORCO 10/325 TAB PO PRN (06:07)
[2022-01-16 06:33] LABS: BASOPHILS % (AUTO) 0.4 % (0.2-1.0); EOSINOPHILS # (AUTO) 0.1 x10^3/uL (0.0-0.2); EOSINOPHILS % (AUTO) 2.3 % (0.9-2.9); HEMATOCRIT 38.4 % (42.0-54.0); HEMOGLOBIN 13.6 g/dL (13.5-18.0); LYMPHOCYTES % (AUTO) 18.7 % (21.0-51.0); MEAN CORPUSCULAR HEMOGLOBIN 30.5 pg (27.0-34.0); MEAN CORPUSCULAR HGB CONC 35.4 g/dL (33.0-35.0); MEAN CORPUSCULAR VOLUME 86.1 fL (80.0-100.0); MEAN PLATELET VOLUME 7.5 fL (7.4-11.0); MONOCYTES # (AUTO) 0.4 x10^3/uL (0.3-0.8); MONOCYTES % (AUTO) 7.4 % (0.0-13.0); NEUTROPHILS # (AUTO) 3.7 x10^3/uL (2.2-4.8); NEUTROPHILS % (AUTO) 71.2 % (42.0-75.0); RED BLOOD COUNT 4.46 X10^6/uL (4.7-6.0); RED CELL DISTRIBUTION WIDTH 13.3 % (11.6-16.5); WHITE BLOOD COUNT 5.1 X10^3/uL (3.6-10.0)
[2022-01-16 07:02] LABS: ALANINE AMINOTRANSFERASE 112 Units/L (12-78); ALBUMIN 3.2 g/dL (3.4-5.0); ALKALINE PHOSPHATASE 85 Units/L (46-116); ASPARTATE AMINO TRANSFERASE 101 Units/L (15-37); BLOOD UREA NITROGEN 13 mg/dL (7-18); CARBON DIOXIDE 27.6 mmol/L (21-32); CHLORIDE 107 mmol/L (98-107); COR CA(FOR HYPOALB) 8.6 mg/dL (8.5-10.1); CREATININE 0.82 mg/dL (0.70-1.30); SODIUM 140 mmol/L (136-145); TOTAL PROTEIN 5.6 g/dL (6.4-8.2); eGFR NON BLACK RACES > 60 (>60)
[2022-01-16] MEDS ORDERED: MORPHINE SULFATE INJ 2 MG INJ IVP ONE (08:40)
[2022-01-16 14:11] VITALS: BP 109/56
[2022-01-16] MEDS: COZAAR PO SCH (14:11)
[2022-01-16] MEDS: NORVASC TAB 5 MG PO SCH (14:11)
[2022-01-16] MEDS: LOPRESSOR TAB 25 MG PO SCH (14:11)
== END 2022-01-16 15:00 | disposition home or self-care (01) ==
LOC: MED/SURG
PROVIDERS: ADMIT Internal Medicine; ATTEND Internal Medicine
DX: I10 Essential (primary) hypertension; R53.1 Weakness; E78.2 Mixed hyperlipidemia; Z20.822 Contact with and (suspected) exposure to COVID-19; R06.02 Shortness of breath; R07.89 Other chest pain; K21.9 Gastro-esophageal reflux disease without esophagitis; M47.897 Other spondylosis, lumbosacral region

== ENCOUNTER 2022-02-03 21:02 | Observation (INO) ==
--- NOTE | 2022-02-03 21:32 | DR.ABDMALE ---
HPI Time seen Time Seen by Provider: 02/03/22 21:29 PCP Primary Care Physician: meenakshi Complaint Chief Complaint Doctors Comments: 52 y/o male presents for evaluation, c/o return of abdominal pain this am. 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 Happen every 3-6 months. Awoke this am with pain, worse across the upper abdomen. Moved his bowels this am. Started with several episodes of vomiting over the past 3 hours. + distension of the abdomen. Pain worse with moving. Nothing makes it better. Chief Complaint:: pt states" My stomach again I woke up this morning with my stomach hurting and it's just gotten worse as the day went by. I can't take it anymore" COVID-19 Coronavirus risk:travel/contact w/high risk person: No Has patient experienced Coronavirus symptoms: No Reviewed Nurses Notes Review: Yes Source History provided by:: PATIENT Mode of arrival Mode of Arrival: Ambulatory Timing Onset of Chief Complaint: 02/03/22 PMH PMH Past Medical History: Yes Past Medical History: Anxiety, Arthritis, GERD and Hypertension Past Medical History Comment: h/o recurrent small bowel obsructions Past Surgical History: Yes Surgical History: Appendectomy and Cholecystectomy Family History History of Family Medical Conditions: Yes Family Medical History: Cancer and Hypertension Social History Does patient currently use any type of tobacco product: No Alcohol Use: None Do you use any recreational Drugs:: No Lives Where: Home Travel Risk Coronavirus risk:travel/contact w/high risk person: No Has patient experienced Coronavirus symptoms: No Infectious screening In the last 2 months have you had wt loss of >10#?: NO Have you had fever, night sweats or hemotysis?: No Have you traveled outside the country in the last 6 months?: No Isolation: Standard ROS Review of Systems Constitutional: No Symptoms Reported Eyes: No Symptoms Reported ENTM: No Symptoms Reported Respiratoy: No Symptoms Reported Cardiovascular: No Symptoms Reported Gastrointestinal/Abdominal: See HPI Genitourinary: No Symptoms Reported Neurological: No Symptoms Reported Musculoskeletal: No Symptoms Reported Integumentary: No Symptoms Reported Hematologic/Lymphatic: No Symptoms Reported Psychiatric: No Symptoms Reported All Other Systems: Reviewed and Negative PE Vital Signs Vital Signs: Temp Pulse Resp BP BP Pulse Ox O2 Del Method 02/03/22 22:03 25 H 02/03/22 21:06 98.2 F 100 H 18 138/99 98 Room Air 01/16/22 12:00 109/56 01/15/22 21:00 FiO2 02/03/22 22:03 02/03/22 21:06 01/16/22 12:00 01/15/22 21:00 28 General General Appearance: Alert and Other (appears uncomfortable. ) Eyes Eye exam: PERRL and EOMI ENT ENT Exam: Mucous Membranes Moist Neck Neck Exam: Normal Inspection and Full ROM Respiratory Respiratory Exam: Normal Lung Sounds Bilat; negative Accessory Muscle Use or Respiratory Distress Cardiovascular Cardiovascular Exam: Regular Rate, Normal Rhythm and Normal Heart Sounds Abdominal Exam Abdominal Exam: Distention and Tenderness (across upper abdomen, + diminished bowel sounds, no guarding or rebound.) Extremeties Extremities Exam: Normal Inspection and Full ROM; negative Edema Neurologic Neurological Exam: Alert, Oriented X3 and CN II-XII Intact; negative Motor Sensory Deficit Skin Skin Exam: Warm and Dry COURSE Treatment Treatment: 52 y/o male presents wit probable partial SBO. + h/o recurrent episodes q3-6 months, last episode about 4 months ago. + pain throughout the day, started vomiting past 3 hours. Abdomen distended. W/u initiated. Given IV fluids, IV zofran/morphine here. 2227 - CBC, CMP acceptable. Acute abdomen series shows distended loops of small bowel. No free air. Will recommend admission for further treatment. 2237 - discussed with Dr Calhoun, with admit, and consult with Dr Ritchie in the am. ROR Labs Reviewed Result Diagrams: 02/03/22 21:56 02/03/22 21:56 Laboratory: WBC 11.8 X10^3/uL (3.6-10.0) H 02/03/22 21:56 RBC 5.14 X10^6/uL (4.7-6.0) 02/03/22 21:56 Hgb 15.2 g/dL (13.5-18.0) 02/03/22 21:56 Hct 43.8 % (42.0-54.0) 02/03/22 21:56 MCV 85.3 fL (80.0-100.0) 02/03/22 21:56 MCH 29.6 pg (27.0-34.0) 02/03/22 21:56 MCHC 34.7 g/dL (33.0-35.0) 02/03/22 21:56 RDW 13.2 % (11.6-16.5) 02/03/22 21:56 Plt Count 283 X10^3/uL (150.0-450.0) 02/03/22 21:56 MPV 7.6 fL (7.4-11.0) 02/03/22 21:56 Neut % (Auto) 84.5 % (42.0-75.0) H 02/03/22 21:56 Lymph % (Auto) 9.3 % (21.0-51.0) L 02/03/22 21:56 [place] % (Auto) 5.2 % (0.0-13.0) 02/03/22 21:56 Eos % (Auto) 0.7 % (0.9-2.9) L 02/03/22 21:56 Baso % (Auto) 0.3 % (0.2-1.0) 02/03/22 21:56 Neut # (Auto) 10.0 x10^3/uL (2.2-4.8) H 02/03/22 21:56 Lymph # (Auto) 1.1 X10^3/uL (1.3-2.9) L 02/03/22 21:56 [place] # (Auto) 0.6 x10^3/uL (0.3-0.8) 02/03/22 21:56 Eos # (Auto) 0.1 x10^3/uL (0.0-0.2) 02/03/22 21:56 Baso # (Auto) 0.0 X10^3/uL (0.0-0.1) 02/03/22 21:56 Absolute Nucleated RBC 0.0 /100WBC 02/03/22 21:56 Sodium 140 mmol/L (136-145) 02/03/22 21:56 Corrected Sodium 141 mmol/L (136-145) 02/03/22 21:56 Potassium 3.5 mmol/L (3.5-5.1) 02/03/22 21:56 Chloride 106 mmol/L (98-107) 02/03/22 21:56 Carbon Dioxide 23.2 mmol/L (21-32) 02/03/22 21:56 BUN 14 mg/dL (7-18) 02/03/22 21:56 Creatinine 1.01 mg/dL (0.70-1.30) 02/03/22 21:56 Est GFR (MDRD) Af Amer > 60 (>60) 02/03/22 21:56 Est GFR (MDRD) Non-Af > 60 (>60) 02/03/22 21:56 Glucose 134 mg/dL (65-99) H 02/03/22 21:56 Lactic Acid 1.7 mmol/L (0.4-2.0) 02/03/22 21:56 Calcium 8.9 mg/dL (8.5-10.1) 02/03/22 21:56 Corrected Calcium TNP 02/03/22 21:56 Total Bilirubin 0.90 mg/dL (0.2-1.0) 02/03/22 21:56 AST 16 Units/L (15-37) 02/03/22 21:56 ALT 18 Units/L (12-78) 02/03/22 21:56 Alkaline Phosphatase 67 Units/L (46-116) 02/03/22 21:56 Total Protein 6.9 g/dL (6.4-8.2) 02/03/22 21:56 Albumin 3.9 g/dL (3.4-5.0) 02/03/22 21:56 Globulin 3.0 g/dL (2.5-4.5) 02/03/22 21:56 Albumin/Globulin Ratio 1.3 Ratio (1.1-2.1) 02/03/22 21:56 Lipase 53 Units/L (73-393) L 02/03/22 21:56 Opioid Opioid Risk Tool Age (Jun box if 16-45): No History of Preadolescent Sexual Abuse: No Total: 0 Total Score Risk Category: Low Risk Copyright: Harris DOWNEY predicting aberrant behaviors Discharge Plan Diagnosis Discharge Problem: Partial small bowel obstruction Discharge Plan Patient Disposition: 01 HOME, SELF-CARE Condition: Stable Prescriptions: No Action tizanidine 4 mg Tablet 4 mg PO Q8H PRN hydrocodone-acetaminophen 10-325 mg Tablet 1 tab PO Q6HR PRN (Reason: Pain) pantoprazole 40 mg Tablet,Delayed Release (Dr/Ec) 40 mg PO ONCE metoclopramide HCl 10 mg Tablet 10 mg PO Q6H PRN (Reason: GERD) metoprolol tartrate 50 mg Tablet 25 mg PO BID amlodipine 10 mg tablet 5 mg PO DAILY hydrochlorothiazide 25 mg tablet 25 mg PO DAILY PRN losartan 100 mg tablet 100 mg PO QAM quetiapine 25 mg tablet 1 tab PO QPM clonazepam 1 mg Tablet 1 mg PO QHS PRN Rx Instructions: administer 30 minutes before bedtime Orders to Discharge Patient Discharge Orders: Transfer (Routine); Ordered 02/03/22 Ordered By: Daniele Heredia
[2022-02-03] MEDS ORDERED: NS 1,000 ML IV 1,000 ML IV ONE (21:40)
[2022-02-03] MEDS ORDERED: MORPHINE SULFATE INJ 4 MG IVP ONE (21:41)
[2022-02-03] MEDS ORDERED: ZOFRAN INJ 4 MG VIAL IVP ONE (21:41)
[2022-02-03] MEDS ORDERED: MORPHINE SULFATE INJ 4 MG ONE (21:55)
[2022-02-03] MEDS ORDERED: ZOFRAN INJ 4 MG VIAL ONE (21:55)
[2022-02-03] MEDS ORDERED: NS 1,000 ML IV 1,000 ML ONE (21:55)
[2022-02-03 22:11] LABS: BASOPHILS % (AUTO) 0.3 % (0.2-1.0); EOSINOPHILS # (AUTO) 0.1 x10^3/uL (0.0-0.2); EOSINOPHILS % (AUTO) 0.7 % (0.9-2.9); HEMATOCRIT 43.8 % (42.0-54.0); HEMOGLOBIN 15.2 g/dL (13.5-18.0); LYMPHOCYTES # (AUTO) 1.1 X10^3/uL (1.3-2.9); LYMPHOCYTES % (AUTO) 9.3 % (21.0-51.0); MEAN CORPUSCULAR HEMOGLOBIN 29.6 pg (27.0-34.0); MEAN CORPUSCULAR HGB CONC 34.7 g/dL (33.0-35.0); MEAN CORPUSCULAR VOLUME 85.3 fL (80.0-100.0); MEAN PLATELET VOLUME 7.6 fL (7.4-11.0); MONOCYTES # (AUTO) 0.6 x10^3/uL (0.3-0.8); MONOCYTES % (AUTO) 5.2 % (0.0-13.0); NEUTROPHILS % (AUTO) 84.5 % (42.0-75.0); RED BLOOD COUNT 5.14 X10^6/uL (4.7-6.0); RED CELL DISTRIBUTION WIDTH 13.2 % (11.6-16.5); WHITE BLOOD COUNT 11.8 X10^3/uL (3.6-10.0)
[2022-02-03 22:20] LABS: ALANINE AMINOTRANSFERASE 18 Units/L (12-78); ALBUMIN 3.9 g/dL (3.4-5.0); ALKALINE PHOSPHATASE 67 Units/L (46-116); ASPARTATE AMINO TRANSFERASE 16 Units/L (15-37); BLOOD UREA NITROGEN 14 mg/dL (7-18); CALCIUM 8.9 mg/dL (8.5-10.1); CARBON DIOXIDE 23.2 mmol/L (21-32); CHLORIDE 106 mmol/L (98-107); COR NA(FOR HYPERGLY) 141 mmol/L (136-145); CREATININE 1.01 mg/dL (0.70-1.30); LIPASE 53 Units/L (73-393); SODIUM 140 mmol/L (136-145); TOTAL PROTEIN 6.9 g/dL (6.4-8.2); eGFR NON BLACK RACES > 60 (>60)
[2022-02-03 22:25] LABS: LACTIC ACID 1.7 mmol/L (0.4-2.0)
--- NOTE | 2022-02-03 22:30 | RAD ---
PROCEDURE: Acute Abdomen Series .HISTORY: Abdomen pain and emesis.TECHNIQUE: AP supine and upright abdomen with AP chest x-ray views .COMPARISON: 09/30/2021 abdomen view and 09/26/2021 acute abdomen series.TECHNICAL QUALITY: All of the pelvis is not included on the study.FINDINGS:Chest x-ray shows clear lungs and normal size heart.No pneumoperitoneum.Scattered gas in small bowel loops could represent mild ileus or early obstruction.No organomegaly.Surgical clips right upper quadrant.No abnormal calcificationsNo bony abnormality.IMPRESSION:1. Mild ileus versus early obstruction and follow-up films may be helpful.2. No active cardiopulmonary disease.Electronically signed by: Cooper Orellana (Feb 03, 2022 22:28:59)
[2022-02-03 23:28] VITALS: BMI 35.6
[2022-02-04] MEDS: D5 1/2 NS 1,000 ML 1,000 ML IV SCH ×3 (00:17→15:22)
[2022-02-04] MEDS: ZOFRAN INJ 4 MG VIAL IVP PRN ×3 (03:41→17:04)
[2022-02-04] MEDS: MORPHINE SULFATE INJ 4 MG IVP PRN ×2 (03:41→08:09)
[2022-02-04 06:02] LABS: BILIRUBIN,URINE NEGATIVE (NEGATIVE); BLOOD/HEMOGLOBIN,URINE NEGATIVE (NEGATIVE); GLUCOSE, URINE NEGATIVE (NEGATIVE); KETONES,URINE NEGATIVE (NEGATIVE); LEUKOCYTE ESTERASE ,URINE NEGATIVE (NEGATIVE); NITRITES,URINE NEGATIVE (NEGATIVE); PROTEIN,URINE 1+ (NEGATIVE); UROBILINOGEN,URINE NORMAL (NORMAL)
[2022-02-04 06:04] LABS: APPEARANCE,URINE CLEAR (CLEAR); COLOR,URINE YELLOW (YELLOW)
[2022-02-04 06:05] LABS: BACTERIA,URINE NEGATIVE /HPF (NEGATIVE); RBC,URINE NONE SEEN /HPF (0-3); SQUAMOUS EPITHELIAL CELL,UR RARE /HPF (NEGATIVE)
[2022-02-04 06:23] LABS: BASOPHILS # (AUTO) 0.1 X10^3/uL (0.0-0.1); BASOPHILS % (AUTO) 0.9 % (0.2-1.0); EOSINOPHILS # (AUTO) 0.2 x10^3/uL (0.0-0.2); EOSINOPHILS % (AUTO) 2.4 % (0.9-2.9); HEMOGLOBIN 13.4 g/dL (13.5-18.0); LYMPHOCYTES # (AUTO) 1.2 X10^3/uL (1.3-2.9); LYMPHOCYTES % (AUTO) 15.4 % (21.0-51.0); MEAN CORPUSCULAR HEMOGLOBIN 30.2 pg (27.0-34.0); MEAN CORPUSCULAR HGB CONC 35.2 g/dL (33.0-35.0); MEAN CORPUSCULAR VOLUME 85.7 fL (80.0-100.0); MEAN PLATELET VOLUME 7.7 fL (7.4-11.0); MONOCYTES # (AUTO) 0.6 x10^3/uL (0.3-0.8); MONOCYTES % (AUTO) 7.9 % (0.0-13.0); NEUTROPHILS # (AUTO) 5.6 x10^3/uL (2.2-4.8); NEUTROPHILS % (AUTO) 73.4 % (42.0-75.0); RED BLOOD COUNT 4.43 X10^6/uL (4.7-6.0); RED CELL DISTRIBUTION WIDTH 12.9 % (11.6-16.5); WHITE BLOOD COUNT 7.6 X10^3/uL (3.6-10.0)
[2022-02-04 06:27] LABS: ALANINE AMINOTRANSFERASE 33 Units/L (12-78); ALBUMIN 3.1 g/dL (3.4-5.0); ALKALINE PHOSPHATASE 62 Units/L (46-116); ASPARTATE AMINO TRANSFERASE 43 Units/L (15-37); BLOOD UREA NITROGEN 12 mg/dL (7-18); CALCIUM 7.9 mg/dL (8.5-10.1); CHLORIDE 108 mmol/L (98-107); COR CA(FOR HYPOALB) 8.6 mg/dL (8.5-10.1); CREATININE 0.88 mg/dL (0.70-1.30); SODIUM 142 mmol/L (136-145); TOTAL PROTEIN 5.8 g/dL (6.4-8.2); eGFR NON BLACK RACES > 60 (>60)
[2022-02-04] MEDS ORDERED: POTASSIUM CHL 40 MEQ/NS 0.45% 500 ML IV PRN (07:45)
[2022-02-04] MEDS ORDERED: KLOR-CON PO PRN (07:45)
[2022-02-04] MEDS ORDERED: MICRO K EXTEN CAP 10 MEQ PO PRN (07:45)
[2022-02-04] MEDS ORDERED: POTASSIUM CHLORIDE LIQ 20 MEQ UDC PO PRN (07:45)
[2022-02-04] MEDS ORDERED: POTASSIUM CHL 60 MEQ/NS 0.45% 500 ML IV PRN (07:45)
[2022-02-04] MEDS: PROTONIX INJ 40 MG VIAL IVP SCH (08:08)
[2022-02-04] MEDS: K-DUR TAB 20 MEQ PO PRN (08:11)
[2022-02-04] MEDS: MAGNESIUM SULFATE 1 GRAM/100 mL PREMIX 1 G/100 ML BAG IV PRN ×2 (08:20→11:15)
[2022-02-04] MEDS: DILAUDID INJ IVP PRN ×3 (11:46→21:10)
[2022-02-04] MEDS: K-RIDER 10 MEQ/NS 100 ML 10 MEQ/100 ML BAG IV PRN ×4 (12:34→17:04)
[2022-02-04] MEDS ORDERED: VISTARIL PO PRN (19:10)
[2022-02-04] MEDS ORDERED: KLONOPIN TAB 1 MG PO PRN (21:00)
[2022-02-05] MEDS: D5 1/2 NS 1,000 ML 1,000 ML IV SCH ×4 (02:45→23:37)
[2022-02-05] MEDS: ZOFRAN INJ 4 MG VIAL IVP PRN ×4 (02:46→23:37)
[2022-02-05] MEDS: DILAUDID INJ IVP PRN ×5 (02:46→23:37)
[2022-02-05 06:25] LABS: BASOPHILS % (AUTO) 0.4 % (0.2-1.0); EOSINOPHILS # (AUTO) 0.2 x10^3/uL (0.0-0.2); EOSINOPHILS % (AUTO) 2.5 % (0.9-2.9); HEMOGLOBIN 12.4 g/dL (13.5-18.0); LYMPHOCYTES % (AUTO) 13.1 % (21.0-51.0); MEAN CORPUSCULAR HGB CONC 34.4 g/dL (33.0-35.0); MEAN CORPUSCULAR VOLUME 87.2 fL (80.0-100.0); MEAN PLATELET VOLUME 7.9 fL (7.4-11.0); MONOCYTES # (AUTO) 0.5 x10^3/uL (0.3-0.8); MONOCYTES % (AUTO) 6.8 % (0.0-13.0); NEUTROPHILS # (AUTO) 5.8 x10^3/uL (2.2-4.8); NEUTROPHILS % (AUTO) 77.2 % (42.0-75.0); RED BLOOD COUNT 4.12 X10^6/uL (4.7-6.0); WHITE BLOOD COUNT 7.5 X10^3/uL (3.6-10.0)
[2022-02-05 06:38] LABS: ALANINE AMINOTRANSFERASE 86 Units/L (12-78); ALBUMIN 3.1 g/dL (3.4-5.0); ALKALINE PHOSPHATASE 74 Units/L (46-116); ASPARTATE AMINO TRANSFERASE 57 Units/L (15-37); BLOOD UREA NITROGEN 10 mg/dL (7-18); CALCIUM 7.6 mg/dL (8.5-10.1); CARBON DIOXIDE 27.8 mmol/L (21-32); CHLORIDE 105 mmol/L (98-107); COR CA(FOR HYPOALB) 8.3 mg/dL (8.5-10.1); CREATININE 0.93 mg/dL (0.70-1.30); MAGNESIUM 2.1 mg/dL (2.0-2.9); SODIUM 138 mmol/L (136-145); TOTAL PROTEIN 5.8 g/dL (6.4-8.2); eGFR NON BLACK RACES > 60 (>60)
[2022-02-05] MEDS: COZAAR PO SCH (08:46)
[2022-02-05] MEDS: PROTONIX INJ 40 MG VIAL IVP SCH (08:46)
--- NOTE | 2022-02-05 09:09 | RAD ---
HISTORYShortness of breath, abdominal painSTUDYAcute abdominal [id number]/25/2022FINDINGSHeart is upper limits normal in size. Priscilla are normal. Lung [place] are clear. No pleural effusions are identified. Abdominal gas pattern is nonspecific and nonobstructive. No abnormal masses or abnormal calcifications are identified. No pneumoperitoneum is present. Regional skeleton is intact.IMPRESSIONLungs clearNonspecific nonobstructive bowel gas patternElectronically signed by: YUKI BEYER (Feb 05, 2022 09:06:36)
[2022-02-05] MEDS ORDERED: ZITHROMAX TAB 250 MG PO ONE (12:07)
[2022-02-05] MEDS ORDERED: DULCOLAX SUPPOSITORY 10 MG RECTAL ONE (12:07)
--- NOTE | 2022-02-05 13:19 | DR.H&P ---
H&P - History & Physical for Day of: H&P Date: 02/03/22 - Chief Complaint Chief Complaint: ABDOMINAL PAIN, N/V - History of Present Illness History of Present Illness: The patient is known to have repeated episodes of partial small bowel obstruction secondary to abdominal adhesions. He started to have progressive abdominal pain, abdominal distention, nausea and vomiting, although he had one bowel movement earlier. The pain started all of the sudden and localized to the left upper quadrant and mid abdomen. He had previous abdominal surgery, appendectomy, and lysis of abdominal adhesions. No documented inflammatory bowel disease. He has chronic anxiety, arthritis, gastroesophageal reflux disease, and hypertension. - Past Medical History Past Medical History: Hypertension, Anxiety, GERD, Arthritis Additional Medical History: SBO - Past Surgical History Surgical History: Appendectomy, Cholecystectomy, Other Additional Surgical History: Lysis of adhesions for SBO, Testicle removed - Family History Family Medical History: Cancer, Hypertension - Social History Does patient currently use any type of tobacco product: No Alcohol Use: None Drug Use: None - Medications Home Medications: No Known Drug Allergies [NKDA] Allergy (Verified 01/14/22 15:08) - Review of Systems Constitutional: No Symptoms Reported. denies: Fever Eyes: No Symptoms Reported ENT: No Symptoms Reported Respiratory: SOB with Excertion Cardiovascular: No Symptoms Reported Gastrointestinal: Nausea, Vomiting, Abdominal Pain Genitourinary: No Symptoms Reported Musculoskeletal: Back Pain Skin: No Symptoms Reported Neurological: No Symptoms Reported - Physical Exam Vital Signs: Temperature 98.6 F Pulse Rate [Brachial] 83 Pulse Rate 100 Respiratory Rate 18 Blood Pressure [Left Arm] 160/73 Blood Pressure [Right Arm] 119/58 Blood Pressure 138/99 O2 Sat by Pulse Oximetry 97 Oriented: Normal Eyes: Normal Ear: Normal Nose: Normal Throat: Normal Respiratory: RLL Diminished, LLL Diminished Cardiovascular: Normal : Normal Auscultation: Bowel Sounds: Decreased Palpation: Other (DIFFUSE DISTENTION) Tenderness: Diffuse Skin: Normal Musculoskeletal: Back:Lumbar Psychiatric: Anxiety Mood Description: Anxious Affect: Anxious Speech Pattern: Clear, Appropriate - Assessment/Plan (1) SBO (small bowel obstruction) Status: Acute Plan: ADMIT, NPO. CONSULT DR PLATT, PAIN CONTROL. GENTLE IV HYDRATION. BP CONTROL (2) Abdominal pain Qualifiers: Abdominal location: generalized Qualified Code(s): R10.84 - Generalized abdominal pain Status: Acute (3) GERD (gastroesophageal reflux disease) Status: Chronic (4) Lumbar and sacral spondyloarthritis Status: Chronic (5) Hypertension Status: Chronic - Allergies Allergies/Adverse Reactions: Allergies Allergy/AdvReac Type Severity Reaction Status Date / Time No Known Drug Allergies Allergy Verified 01/14/22 15:08 [NKDA]
--- NOTE | 2022-02-05 15:10 | DR.PROGNOT ---
Hospital Progress Notes - Progress Note for Day of: Progress Note Date: 02/05/22 - Chief Complaint Chief Complaint: still having LUQ and Lt side pain.. vomited last night . no BM but passing flatus . Mg and K are corrected . afebrile .. - Past Medical Family Social History Past Med/Fam/Surg Hx: No changes since H&P Allergies: Allergies No Known Drug Allergies [NKDA] Allergy (Verified 01/14/22 15:08) - Review Of Systems ROS: No change since H&P - Vital Signs Vital Signs: Temperature 98.6 F Pulse Rate [Brachial] 83 Pulse Rate 100 Respiratory Rate 12 Blood Pressure [Left Arm] 160/73 Blood Pressure [Right Arm] 119/58 Blood Pressure 138/99 O2 Sat by Pulse Oximetry 97 - Physical Exam Oriented: Normal Eyes: Normal Ear: Normal Nose: Normal Throat: Normal Cardiovascular: Normal : Normal GI:Auscultation: Decreased GI:Palpation: Other (DIFFUSE DISTENTION) GI: Tenderness: Diffuse (moderate distention and Lt side tendernes .. BS= but hypoactive ..) Skin: Normal Musculoskeletal: Back:Lumbar Psychiatric: Anxiety Mood Description: Anxious Affect: Anxious Speech Pattern: Clear, Appropriate - Laboratory and Diagnostics Result Diagrams: 02/05/22 05:20 02/05/22 05:20 Labs: Laboratory WBC 7.5 X10^3/uL (3.6-10.0) 02/05/22 05:20 RBC 4.12 X10^6/uL (4.7-6.0) L 02/05/22 05:20 Hgb 12.4 g/dL (13.5-18.0) L 02/05/22 05:20 Hct 36.0 % (42.0-54.0) L 02/05/22 05:20 MCV 87.2 fL (80.0-100.0) 02/05/22 05:20 MCH 30.0 pg (27.0-34.0) 02/05/22 05:20 MCHC 34.4 g/dL (33.0-35.0) 02/05/22 05:20 RDW 13.0 % (11.6-16.5) 02/05/22 05:20 Plt Count 237 X10^3/uL (150.0-450.0) 02/05/22 05:20 MPV 7.9 fL (7.4-11.0) 02/05/22 05:20 Neut % (Auto) 77.2 % (42.0-75.0) H 02/05/22 05:20 Lymph % (Auto) 13.1 % (21.0-51.0) L 02/05/22 05:20 Mason % (Auto) 6.8 % (0.0-13.0) 02/05/22 05:20 Eos % (Auto) 2.5 % (0.9-2.9) 02/05/22 05:20 Baso % (Auto) 0.4 % (0.2-1.0) 02/05/22 05:20 Neut # (Auto) 5.8 x10^3/uL (2.2-4.8) H 02/05/22 05:20 Lymph # (Auto) 1.0 X10^3/uL (1.3-2.9) L 02/05/22 05:20 Mason # (Auto) 0.5 x10^3/uL (0.3-0.8) 02/05/22 05:20 Eos # (Auto) 0.2 x10^3/uL (0.0-0.2) 02/05/22 05:20 Baso # (Auto) 0.0 X10^3/uL (0.0-0.1) 02/05/22 05:20 Absolute Nucleated RBC 0.0 /100WBC 02/05/22 05:20 Sodium 138 mmol/L (136-145) 02/05/22 05:20 Corrected Sodium TNP 02/05/22 05:20 Potassium 3.7 mmol/L (3.5-5.1) 02/05/22 05:20 Chloride 105 mmol/L (98-107) 02/05/22 05:20 Carbon Dioxide 27.8 mmol/L (21-32) 02/05/22 05:20 BUN 10 mg/dL (7-18) 02/05/22 05:20 Creatinine 0.93 mg/dL (0.70-1.30) 02/05/22 05:20 Est GFR (MDRD) Af Amer > 60 (>60) 02/05/22 05:20 Est GFR (MDRD) Non-Af > 60 (>60) 02/05/22 05:20 Glucose 106 mg/dL (65-99) H 02/05/22 05:20 Lactic Acid 1.7 mmol/L (0.4-2.0) 02/03/22 21:56 Calcium 7.6 mg/dL (8.5-10.1) L 02/05/22 05:20 Corrected Calcium 8.3 mg/dL (8.5-10.1) L 02/05/22 05:20 Magnesium 2.1 mg/dL (2.0-2.9) 02/05/22 05:20 Total Bilirubin 0.60 mg/dL (0.2-1.0) 02/05/22 05:20 AST 57 Units/L (15-37) H 02/05/22 05:20 ALT 86 Units/L (12-78) H 02/05/22 05:20 Alkaline Phosphatase 74 Units/L (46-116) 02/05/22 05:20 Total Protein 5.8 g/dL (6.4-8.2) L 02/05/22 05:20 Albumin 3.1 g/dL (3.4-5.0) L 02/05/22 05:20 Globulin 2.7 g/dL (2.5-4.5) 02/05/22 05:20 Albumin/Globulin Ratio 1.1 Ratio (1.1-2.1) 02/05/22 05:20 Lipase 53 Units/L (73-393) L 02/03/22 21:56 Specimen Type Clean catch urine 02/04/22 05:36 Urine Color Yellow (YELLOW) 02/04/22 05:36 Urine Appearance Clear (CLEAR) 02/04/22 05:36 Urine pH 6.0 (5.0 - 8.0) 02/04/22 05:36 Ur Specific [place] 1.025 (1.000-1.030) 02/04/22 05:36 Urine Protein 1+ (NEGATIVE) 02/04/22 05:36 Urine Glucose (UA) Negative (NEGATIVE) 02/04/22 05:36 Urine Ketones Negative (NEGATIVE) 02/04/22 05:36 Urine Blood Negative (NEGATIVE) 02/04/22 05:36 Urine Nitrite Negative (NEGATIVE) 02/04/22 05:36 Urine Bilirubin Negative (NEGATIVE) 02/04/22 05:36 Urine Urobilinogen Normal (NORMAL) 02/04/22 05:36 Ur Leukocyte Esterase Negative (NEGATIVE) 02/04/22 05:36 Urine RBC None seen /HPF (0-3) 02/04/22 05:36 Urine WBC None seen /HPF (0-5) 02/04/22 05:36 Ur Squamous Epith Cells Rare /HPF (NEGATIVE) 02/04/22 05:36 Urine Bacteria Negative /HPF (NEGATIVE) 02/04/22 05:36 Ur Culture Indicated? No/not indicated 02/04/22 05:36 S. pyogenes (TEM-PCR) Not detected (NOT DETECT) 02/05/22 10:45 - Assessment and Plan 4: subsiding ileus and partial SBO.. corrected K, Mg . to advance diet today .. 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
--- NOTE | 2022-02-05 16:17 | RAD ---
EXAM: ABDOMEN X-RAY (or KUB)HISTORY: Abdominal pain. Small bowel obstruction.TECHNIQUE: Supine viewCOMPARISON: None.FINDINGS:The bowel gas pattern is nonspecific and nonobstructive. There is no gross organomegaly, free intraperitoneal air, or suspicious calcifications seen. Surgical clips are seen in the right upper quadrant in keeping with prior cholecystectomy. The visualized bony structures are within normal limits.IMPRESSION:1. Nonspecific and nonobstructive bowel gas pattern.2. No gross organomegaly, free intraperitoneal air, or suspicious calcifications seen.3. Consider follow-up evaluation with CT if symptoms persist or worsen.Electronically signed by: Saray Gilbert (Feb 05, 2022 16:15:32)
[2022-02-06 07:12] LABS: BASOPHILS % (AUTO) 0.2 % (0.2-1.0); EOSINOPHILS # (AUTO) 0.3 x10^3/uL (0.0-0.2); EOSINOPHILS % (AUTO) 4.4 % (0.9-2.9); HEMATOCRIT 37.9 % (42.0-54.0); HEMOGLOBIN 13.2 g/dL (13.5-18.0); LYMPHOCYTES # (AUTO) 0.8 X10^3/uL (1.3-2.9); LYMPHOCYTES % (AUTO) 13.5 % (21.0-51.0); MEAN CORPUSCULAR HEMOGLOBIN 29.9 pg (27.0-34.0); MEAN CORPUSCULAR HGB CONC 34.8 g/dL (33.0-35.0); MEAN CORPUSCULAR VOLUME 85.8 fL (80.0-100.0); MEAN PLATELET VOLUME 7.9 fL (7.4-11.0); MONOCYTES # (AUTO) 0.5 x10^3/uL (0.3-0.8); MONOCYTES % (AUTO) 8.1 % (0.0-13.0); NEUTROPHILS # (AUTO) 4.2 x10^3/uL (2.2-4.8); NEUTROPHILS % (AUTO) 73.8 % (42.0-75.0); RED BLOOD COUNT 4.42 X10^6/uL (4.7-6.0); WHITE BLOOD COUNT 5.8 X10^3/uL (3.6-10.0)
[2022-02-06 07:26] LABS: ALANINE AMINOTRANSFERASE 66 Units/L (12-78); ALBUMIN 3.4 g/dL (3.4-5.0); ALKALINE PHOSPHATASE 75 Units/L (46-116); ASPARTATE AMINO TRANSFERASE 37 Units/L (15-37); BLOOD UREA NITROGEN 6 mg/dL (7-18); CALCIUM 8.3 mg/dL (8.5-10.1); CARBON DIOXIDE 30.1 mmol/L (21-32); CHLORIDE 102 mmol/L (98-107); CREATININE 0.79 mg/dL (0.70-1.30); SODIUM 139 mmol/L (136-145); TOTAL PROTEIN 6.3 g/dL (6.4-8.2); eGFR NON BLACK RACES > 60 (>60)
[2022-02-06] MEDS: DILAUDID INJ IVP PRN (07:48)
[2022-02-06] MEDS: PROTONIX INJ 40 MG VIAL IVP SCH (08:07)
[2022-02-06] MEDS: COZAAR PO SCH (08:07)
[2022-02-06] MEDS: K-DUR TAB 20 MEQ PO PRN (08:07)
[2022-02-06 09:35] VITALS: BP 141/79
[2022-02-06] MEDS ORDERED: ROCEPHIN VIAL 1 GRAM IM ONE (10:48)
[2022-02-06] MEDS ORDERED: ZITHROMAX TAB 250 MG PO ONE (10:49)
[2022-02-06] MEDS ORDERED: ROCEPHIN VIAL 1 GRAM IVP NR (11:30)
== END 2022-02-06 13:14 | disposition home or self-care (01) ==
LOC: ER 21:06 → MED/SURG 21:06
PROVIDERS: ADMIT Family Medicine; ATTEND Internal Medicine
DX: M48.8X7 Other specified spondylopathies, lumbosacral region; K21.9 Gastro-esophageal reflux disease without esophagitis; E87.6 Hypokalemia; I10 Essential (primary) hypertension; M19.90 Unspecified osteoarthritis, unspecified site; R10.84 Generalized abdominal pain; F41.8 Other specified anxiety disorders; K56.7 Ileus, unspecified; R11.2 Nausea with vomiting, unspecified; R06.02 Shortness of breath; K56.51 Intestinal adhesions [bands], with partial obstruction

== ENCOUNTER 2022-07-14 18:45 | Observation (INO) ==
[2022-07-14] MEDS ORDERED: NS 1,000 ML IV 1,000 ML IV ONE (19:20)
[2022-07-14] MEDS ORDERED: NS 1,000 ML IV 1,000 ML ONE (19:26)
[2022-07-14 19:44] LABS: BASOPHILS % (AUTO) 0.3 % (0.2-1.0); EOSINOPHILS # (AUTO) 0.1 x10^3/uL (0.0-0.2); EOSINOPHILS % (AUTO) 0.9 % (0.9-2.9); HEMATOCRIT 42.8 % (42.0-54.0); HEMOGLOBIN 15.3 g/dL (13.5-18.0); LYMPHOCYTES # (AUTO) 0.8 X10^3/uL (1.3-2.9); LYMPHOCYTES % (AUTO) 8.3 % (21.0-51.0); MEAN CORPUSCULAR HEMOGLOBIN 30.2 pg (27.0-34.0); MEAN CORPUSCULAR HGB CONC 35.8 g/dL (33.0-35.0); MEAN CORPUSCULAR VOLUME 84.3 fL (80.0-100.0); MEAN PLATELET VOLUME 7.8 fL (7.4-11.0); MONOCYTES # (AUTO) 0.5 x10^3/uL (0.3-0.8); MONOCYTES % (AUTO) 4.7 % (0.0-13.0); NEUTROPHILS # (AUTO) 8.5 x10^3/uL (2.2-4.8); NEUTROPHILS % (AUTO) 85.8 % (42.0-75.0); PLATELET COUNT 262 X10^3/uL (150.0-450.0); RED BLOOD COUNT 5.07 X10^6/uL (4.7-6.0); RED CELL DISTRIBUTION WIDTH 12.7 % (11.6-16.5)
[2022-07-14 19:54] LABS: ALANINE AMINOTRANSFERASE 40 Units/L (12-78); ALBUMIN 4.1 g/dL (3.4-5.0); ALKALINE PHOSPHATASE 63 Units/L (46-116); ASPARTATE AMINO TRANSFERASE 24 Units/L (15-37); BLOOD UREA NITROGEN 18 mg/dL (7-18); CALCIUM 8.7 mg/dL (8.5-10.1); CARBON DIOXIDE 25.8 mmol/L (21-32); CHLORIDE 105 mmol/L (98-107); COR NA(FOR HYPERGLY) 143 mmol/L (136-145); CREATININE 1.04 mg/dL (0.70-1.30); GLUCOSE 126 mg/dL (65-99); LIPASE 62 Units/L (73-393); POTASSIUM 3.2 mmol/L (3.5-5.1); SODIUM 142 mmol/L (136-145); eGFR NON BLACK RACES > 60 (>60)
[2022-07-14 20:16] LABS: BILIRUBIN,URINE NEGATIVE (NEGATIVE); BLOOD/HEMOGLOBIN,URINE NEGATIVE (NEGATIVE); GLUCOSE, URINE NEGATIVE (NEGATIVE); KETONES,URINE NEGATIVE (NEGATIVE); LEUKOCYTE ESTERASE ,URINE NEGATIVE (NEGATIVE); NITRITES,URINE NEGATIVE (NEGATIVE); PROTEIN,URINE 1+ (NEGATIVE); UROBILINOGEN,URINE 1+ (NORMAL)
--- NOTE | 2022-07-14 20:27 | DR.ABDMALE ---
HPI Time seen Time Seen by Provider: 07/14/22 19:20 PCP Primary Care Physician: VITOR CHRISTOPHER Complaint Chief Complaint Doctors Comments: Patient presents with abdominal distention that began early today.He had a BM early today and was unable to pass stools afterwards.Patient's abdomen was distended and he has had intractable pain/n/v.Patient denies:fever,hematemesis,hematochezia, headache,chest pain,back pain. Chief Complaint:: PT C/O RUQ AND LUQ ABD PAIN AND N/V THAT STARTED TODAY. PT REPORTS NORMAL BM THIS AM AROUND 0600. PT REPORTS HX OF SBO'S AND ABD SURGERIES. COVID-19 Coronavirus risk:travel/contact w/high risk person: No Has patient experienced Coronavirus symptoms: No Source History provided by:: PATIENT Mode of arrival Mode of Arrival: Ambulatory Timing Onset of Chief Complaint: 07/14/22 PMH PMH Past Medical History: Yes Past Medical History: Anxiety, Arthritis, GERD and Hypertension Past Medical History Comment: SBO Past Surgical History: Yes Surgical History: Abdominal Surgery, Appendectomy, Cholecystectomy and Other Family History History of Family Medical Conditions: Yes Family Medical History: Cancer and Hypertension Social History Alcohol Use: None Do you use any recreational Drugs:: No Lives With: Family Lives Where: Home Travel Risk Coronavirus risk:travel/contact w/high risk person: No Has patient experienced Coronavirus symptoms: No Infectious screening In the last 2 months have you had wt loss of >10#?: NO Have you had fever, night sweats or hemotysis?: No Have you traveled outside the country in the last 6 months?: No Isolation: Standard ROS Review of Systems Constitutional: No Symptoms Reported Eyes: No Symptoms Reported ENTM: No Symptoms Reported Respiratoy: No Symptoms Reported Cardiovascular: No Symptoms Reported Gastrointestinal/Abdominal: Abdominal Pain, Nausea, Vomiting and Other (Abdominal distention) Genitourinary: No Symptoms Reported Neurological: No Symptoms Reported Musculoskeletal: No Symptoms Reported Integumentary: No Symptoms Reported Hematologic/Lymphatic: No Symptoms Reported Endocrine: No Symptoms Reported Psychiatric: No Symptoms Reported All Other Systems: Reviewed and Negative PE Vital Signs Vital Signs: Temp Pulse Pulse Resp BP BP Pulse Ox 07/15/22 00:22 97.9 F 68 18 140/83 98 07/15/22 00:21 22 06/04/23 18:46 98.0 F 88 22 135/82 99 02/06/22 08:00 141/79 02/05/22 20:30 O2 Del Method FiO2 07/15/22 00:22 Room Air 07/15/22 00:21 07/14/22 18:46 Room Air 02/06/22 08:00 02/05/22 20:30 28 General Limitations: No Limitations General Appearance: Alert and In No Apparent Distress Head Head Exam: Normal Inspection Eyes Eye exam: Normal Appearance ENT ENT Exam: Normal Exam Neck Neck Exam: Normal Inspection Chest Chest Inspection: Normal Inspection Respiratory Respiratory Exam: Normal Lung Sounds Bilat Respiratory Exam: Bilateral: Clear to Auscultation Cardiovascular Cardiovascular Exam: Regular Rate and Normal Rhythm Abdominal Exam Abdominal Exam: Tenderness (generalized abdomen) and Hypoactive Bowel Sounds Abdominal Tenderness: Diffuse and Severe Rectal Rectal Exam: Deferred Back Back Exam: Normal Inspection Extremeties Extremities Exam: Normal Inspection Exam: Male: Deferred Neurologic Neurological Exam: Alert and Oriented X3 Psychiatric Psychiatric Exam: Normal Affect and Normal Mood Skin Skin Exam: Warm, Dry, Intact and Normal Color MDM Differential Diagnosis Differential Diagnosis: Bowel Obstruction, Inflammatory BD, Ischemic Bowel and Urinary tract infection COURSE Treatment Treatment: Patient's Abd/pelvis CT revealed dilated SB loops with assosciated mesenteris stranding/edema. Radiologist states that there is a concern for early ischemic bowel. 00:13 Patient has been accepted by Dr Robles to his service at [facility].Patient's surgeon is Dr Ritchie. Patient received dicyclomine 10mg im and zofran 4mg im ( patient refused morphine at that time.He also recieved a NS bolus iv. 00:20 Patient was given morphine 2mg iv and zofran 4mg iv for pain.Zosyn 3.375mg iv was ordered. [facility] Labs Reviewed Laboratory Results Reviewed?: Yes Result Diagrams: 07/14/22 19:31 07/14/22 19:31 Laboratory: WBC 10.0 X10^3/uL (3.6-10.0) 07/14/22 19:31 RBC 5.07 X10^6/uL (4.7-6.0) 07/14/22 19:31 Hgb 15.3 g/dL (13.5-18.0) 07/14/22 19:31 Hct 42.8 % (42.0-54.0) 07/14/22 19: MCV 84.3 fL (80.0-100.0) 07/14/22: MCH 30.2 pg (27.0-34.0) 07/14/22: MCHC 35.8 g/dL (33.0-35.0) H 07/14/22: RDW 12.7 % (11.6-16.5) 07/14/22: Plt Count 262 X10^3/uL (150.0-450.0) 07/14/22: MPV 7.8 fL (7.4-11.0) 07/14/22: Neut % (Auto) 85.8 % (42.0-75.0) H 07/14/22: Lymph % (Auto) 8.3 % (21.0-51.0) L 07/14/22: Turner % (Auto) 4.7 % (0.0-13.0) 07/14/22: Eos % (Auto) 0.9 % (0.9-2.9) 07/14/22: Baso % (Auto) 0.3 % (0.2-1.0) 07/14/22: Neut # (Auto) 8.5 x10^3/uL (2.2-4.8) H 07/14/22: Lymph # (Auto) 0.8 X10^3/uL (1.3-2.9) L 07/14/22: Turner # (Auto) 0.5 x10^3/uL (0.3-0.8) 07/14/22: Eos # (Auto) 0.1 x10^3/uL (0.0-0.2) 07/14/22: Baso # (Auto) 0.0 X10^3/uL (0.0-0.1) 07/14/22: Absolute Nucleated RBC 0.0 /100WBC 07/14/22 19: Sodium 142 mmol/L (136-145) 07/14/22: Corrected Sodium 143 mmol/L (136-145) 07/14/22:31 Potassium 3.2 mmol/L (3.5-5.1) L 07/14/22 19:31 Chloride 105 mmol/L (98-107) 07/14/22 19:31 Carbon Dioxide 25.8 mmol/L (21-32) 07/14/22 19:31 BUN 18 mg/dL (7-18) 07/14/22 19:31 Creatinine 1.04 mg/dL (0.70-1.30) 07/14/22 19:31 Est GFR (MDRD) Af Amer > 60 (>60) 07/14/22 19:31 Est GFR (MDRD) Non-Af > 60 (>60) 07/14/22 19:31 Glucose 126 mg/dL (65-99) H 07/14/22 19:31 Calcium 8.7 mg/dL (8.5-10.1) 07/14/22 19:31 Corrected Calcium TNP 07/14/22 19:31 Total Bilirubin 1.10 mg/dL (0.2-1.0) H 07/14/22 19:31 AST 24 Units/L (15-37) 07/14/22 19:31 ALT 40 Units/L (12-78) 07/14/22 19:31 Alkaline Phosphatase 63 Units/L (46-116) 07/14/22 19:31 Total Protein 7.0 g/dL (6.4-8.2) 07/14/22 19:31 Albumin 4.1 g/dL (3.4-5.0) 07/14/22 19:31 Globulin 2.9 g/dL (2.5-4.5) 07/14/22 19:31 Albumin/Globulin Ratio 1.4 Ratio (1.1-2.1) 07/14/22 19:31 Lipase 62 Units/L (73-393) L 07/14/22 19:31 Specimen Type Clean catch urine 07/14/22 20:10 Urine Color Yellow (YELLOW) 07/14/22 20:10 Urine Appearance Clear (CLEAR) 07/14/22 20:10 Urine pH 6.0 (5.0 - 8.0) 07/14/22 20:10 Ur Specific [place] 1.015 (1.000-1.030) 07/14/22 20:10 Urine Protein 1+ (NEGATIVE) 07/14/22 20:10 Urine Glucose (UA) Negative (NEGATIVE) 07/14/22 20:10 Urine Ketones Negative (NEGATIVE) 07/14/22 20:10 Urine Blood Negative (NEGATIVE) 07/14/22 20:10 Urine Nitrite Negative (NEGATIVE) 07/14/22 20:10 Urine Bilirubin Negative (NEGATIVE) 07/14/22 20:10 Urine Urobilinogen 1+ (NORMAL) 07/14/22 20:10 Ur Leukocyte Esterase Negative (NEGATIVE) 07/14/22 20:10 Urine RBC 0-2 /HPF (0-3) 07/14/22 20:10 Urine WBC 0-2 /HPF (0-5) 07/14/22 20:10 Ur Squamous Epith Cells Rare /HPF (NEGATIVE) 07/14/22 20:10 Urine Bacteria Trace /HPF (NEGATIVE) 07/14/22 20:10 RBC Casts Rare /LPF (NEGATIVE) 07/14/22 20:10 Urine Mucus Few /HPF (NEGATIVE) 07/14/22 20:10 Ur Culture Indicated? No/not indicated 07/14/22 20:10 XRAY XRAY Interpreted by: Radiologist X-ray Results: EXAM: CT ABDOMEN AND PELVIS WITHOUT INTRAVENOUS CONTRAST HISTORY: Abdominal pain and swelling. Rule out bowel obstruction. TECHNIQUE: Spiral axial CT images are obtained through the abdomen and pelvis without the administration of intravenous contrast. Additional coronal and sagittal reformatted images are reconstructed. DOSIMETRY: Total DLP 618.5 mGycm; CTDI 12.08 mGy COMPARISON: CT abdomen pelvis dated September 24, 2021. FINDINGS: GASTROINTESTINAL TRACT: There are up to 4.4 cm dilated, circumferentially thickened, fluid and air-filled, small bowel loops seen within the anterior abdomen and pelvis, with associated mesenteric stranding/edema; DDx includes focal enteritis with ileus; interval progression findings compared with the previous exam; cannot rule out early ischemic bowel disease in the appropriate clinical setting. Careful clinical correlation is advised. No evidence for pneumatosis intestinalis, portal venous air or free intraperitoneal air. There is a small retrocardiac hiatal hernia (3.3 cm AP by 2.6 cm transverse). There is an approximately 2.5 cm diverticulum of the second segment of the duodenal sweep. Axial image 35. There is no evidence for bowel herniation, bowel obstruction, colitis or diverticulitis. Status post appendectomy. GENITOURINARY SYSTEM: The kidneys are unremarkable. There is no ureteral calculus or stigmata of obstructive uropathy. The urinary bladder, seminal vesicles, prostate gland appear grossly unremarkable for a non-dedicated exam. CT ABDOMEN: Status post cholecystectomy. Mild aortoiliac atherosclerotic disease, without aneurysm formation. The liver, spleen, pancreas, adrenal glands, and inferior vena cava are within normal limits for a noncontrast CT scan. There is no intra-abdominal or retroperitoneal lymphadenopathy, free fluid, or free air seen. No abdominal herniation is noted. CT PELVIS: No pelvic sidewall or inguinal lymphadenopathy is seen. No inguinal herniation is noted. No free fluid or free air is seen. BONES AND JOINTS: The visualized bony structures are within normal limits. LUNG BASES: The lung bases are clear. IMPRESSION: 1. Up to 4.4 cm dilated, circumferentially thickened, fluid and air-filled, small bowel loops seen within the anterior abdomen and pelvis, with associated mesenteric stranding/edema; DDx includes focal enteritis (e.g. infectious enteritis and inflammatory bowel disease) with ileus; interval progression findings compared with the previous exam; cannot rule out early ischemic bowel disease in the appropriate clinical setting. Careful clinical correlation is advised. 2. No evidence for pneumatosis intestinalis, portal venous air or free intraperitoneal air. 3. Small retrocardiac hiatal hernia (3.3 cm AP by 2.6 cm transverse). 4. Approximately 2.5 cm diverticulum of the second segment of the duodenal sweep. Axial image 35. 5. No evidence for bowel herniation, bowel obstruction, appendicitis, colitis or diverticulitis. 6. No evidence for renal stone disease or obstructive uropathy. 7. No free fluid, free air, mass lesions, or lymphadenopathy seen. 8. Status post cholecystectomy and appendectomy. Electronically signed by: Saray Gilbert (Jul 14, 2022 23:17:14) Opioid Opioid Risk Tool Age (Jun box if 16-45): No History of Preadolescent Sexual Abuse: No Total: 0 Total Score Risk Category: Low Risk Copyright: Harris DOWNEY predicting aberrant behaviors Discharge Plan Diagnosis Discharge Problem: Intractable abdominal pain Discharge Plan Patient Disposition: 09 ADMITTED INPATIENT Condition: Stable Prescriptions: No Action pantoprazole 40 mg Tablet,Delayed Release (Dr/Ec) 40 mg PO BID Qty: 60 0RF azithromycin [Zithromax] 500 mg Tablet 500 mg PO DAILY Qty: 3 0RF tizanidine 4 mg Tablet 4 mg PO Q8H PRN hydrocodone-acetaminophen 10-325 mg Tablet 1 tab PO Q6HR PRN (Reason: Pain) metoclopramide HCl 10 mg Tablet 10 mg PO Q6H PRN (Reason: GERD) metoprolol tartrate 50 mg Tablet 25 mg PO BID amlodipine 10 mg tablet 5 mg PO DAILY hydrochlorothiazide 25 mg tablet 25 mg PO DAILY PRN losartan 100 mg tablet 100 mg PO QAM quetiapine 25 mg tablet 1 tab PO QPM clonazepam 1 mg Tablet 1 mg PO QHS PRN Rx Instructions: administer 30 minutes before bedtime Health Concerns: Post Hospitalization: new medications and changes needed to prevent readmission or further decline. Pt educated and given instructions on all concerns. Plan of Treatment: Observation Admission Follow ups/Referrals Follow ups/Referrals: VITOR CHRISTOPHER [Primary Care Provider] - 3 days
[2022-07-14 20:30] LABS: APPEARANCE,URINE CLEAR (CLEAR); COLOR,URINE YELLOW (YELLOW)
[2022-07-14 20:31] LABS: BACTERIA,URINE TRACE /HPF (NEGATIVE); RBC,URINE 0-2 /HPF (0-3); RED BLOOD CELL CASTS,URINE RARE /LPF (NEGATIVE); SQUAMOUS EPITHELIAL CELL,UR RARE /HPF (NEGATIVE)
[2022-07-14] MEDS ORDERED: ZOFRAN INJ 4 MG VIAL IVP ONE (21:13)
[2022-07-14] MEDS ORDERED: BENTYL I.M. INJ 10 MG IM ONE ×2 (21:13→21:14)
[2022-07-14] MEDS ORDERED: ZOFRAN INJ 4 MG VIAL ONE (21:14)
--- NOTE | 2022-07-14 23:18 | CT ---
EXAM: CT ABDOMEN AND PELVIS WITHOUT INTRAVENOUS CONTRASTHISTORY: Abdominal pain and swelling. Rule out bowel obstruction.TECHNIQUE: Spiral axial CT images are obtained through the abdomen and pelvis without the administration of intravenous contrast. Additional coronal and sagittal reformatted images are reconstructed.DOSIMETRY: Total DLP 618.5 mGycm; CTDI 12.08 mGyCOMPARISON: CT abdomen pelvis dated September 24, 2021.FINDINGS:GASTROINTESTINAL TRACT: There are up to 4.4 cm dilated, circumferentially thickened, fluid and air-filled, small bowel loops seen within the anterior abdomen and pelvis, with associated mesenteric stranding/edema; DDx includes focal enteritis with ileus; interval progression findings compared with the previous exam; cannot rule out early ischemic bowel disease in the appropriate clinical setting. Careful clinical correlation is advised. No evidence for pneumatosis intestinalis, portal venous air or free intraperitoneal air. There is a small retrocardiac hiatal hernia (3.3 cm AP by 2.6 cm transverse). There is an approximately 2.5 cm diverticulum of the second segment of the duodenal sweep. Axial image 35. There is no evidence for bowel herniation, bowel obstruction, colitis or diverticulitis. Status post appendectomy.GENITOURINARY SYSTEM: The kidneys are unremarkable. There is no ureteral calculus or stigmata of obstructive uropathy. The urinary bladder, seminal vesicles, prostate gland appear grossly unremarkable for a non-dedicated exam.CT ABDOMEN: Status post cholecystectomy. Mild aortoiliac atherosclerotic disease, without aneurysm formation. The liver, spleen, pancreas, adrenal glands, and inferior vena cava are within normal limits for a noncontrast CT scan. There is no intra-abdominal or retroperitoneal lymphadenopathy, free fluid, or free air seen. No abdominal herniation is noted.CT PELVIS: No pelvic sidewall or inguinal lymphadenopathy is seen. No inguinal herniation is noted. No free fluid or free air is seen.BONES AND JOINTS: The visualized bony structures are within normal limits.LUNG BASES: The lung bases are clear.IMPRESSION:1. Up to 4.4 cm dilated, circumferentially thickened, fluid and air-filled, small bowel loops seen within the anterior abdomen and pelvis, with associated mesenteric stranding/edema; DDx includes focal enteritis (e.g. infectious enteritis and inflammatory bowel disease) with ileus; interval progression findings compared with the previous exam; cannot rule out early ischemic bowel disease in the appropriate clinical setting. Careful clinical correlation is advised.2. No evidence for pneumatosis intestinalis, portal venous air or free intraperitoneal air.3. Small retrocardiac hiatal hernia (3.3 cm AP by 2.6 cm transverse).4. Approximately 2.5 cm diverticulum of the second segment of the duodenal sweep. Axial image 35.5. No evidence for bowel herniation, bowel obstruction, appendicitis, colitis or diverticulitis.6. No evidence for renal stone disease or obstructive uropathy.7. No free fluid, free air, mass lesions, or lymphadenopathy seen.8. Status post cholecystectomy and appendectomy.Electronically signed by: Saray Gilbert (Jul 14, 2022 23:17:14)
[2022-07-15] MEDS ORDERED: ZOFRAN INJ 4 MG VIAL IVP ONE (00:14)
[2022-07-15] MEDS ORDERED: MORPHINE SULFATE INJ 2 MG INJ IVP ONE (00:14)
[2022-07-15] MEDS ORDERED: MORPHINE SULFATE INJ 2 MG INJ ONE (00:15)
[2022-07-15] MEDS ORDERED: ZOFRAN INJ 4 MG VIAL ONE ×2 (00:15→10:08)
[2022-07-15] MEDS ORDERED: ZOSYN VIAL 3.375 GRAMS 3.375 G in NS 100 ML IV 100 ML IV ONE (00:15)
[2022-07-15] MEDS ORDERED: ZOSYN VIAL 3.375 GRAMS IV ONE (00:17)
[2022-07-15] MEDS ORDERED: NS 100 ML IV 100 ML ONE ×2 (00:18→04:54)
[2022-07-15] MEDS ORDERED: ZANAFLEX PO PRN (00:39)
[2022-07-15] MEDS ORDERED: HYDROCHLOROTHIAZIDE 25 MG TAB PO PRN (00:39)
[2022-07-15] MEDS: ZOSYN VIAL 3.375 GRAMS 3.375 G in NS 100 ML IV 100 ML IV SCH ×4 (00:56→21:17)
[2022-07-15] MEDS ORDERED: NS 1,000 ML IV 1,000 ML ONE (01:03)
[2022-07-15 01:27] VITALS: BMI 36.6
[2022-07-15] MEDS: MORPHINE SULFATE INJ 2 MG INJ IVP PRN ×2 (05:07→09:00)
[2022-07-15 06:33] LABS: BASOPHILS % (AUTO) 0.2 % (0.2-1.0); EOSINOPHILS # (AUTO) 0.1 x10^3/uL (0.0-0.2); EOSINOPHILS % (AUTO) 0.9 % (0.9-2.9); HEMATOCRIT 38.4 % (42.0-54.0); HEMOGLOBIN 13.8 g/dL (13.5-18.0); LYMPHOCYTES % (AUTO) 11.6 % (21.0-51.0); MEAN CORPUSCULAR HGB CONC 35.8 g/dL (33.0-35.0); MEAN CORPUSCULAR VOLUME 83.7 fL (80.0-100.0); MEAN PLATELET VOLUME 7.9 fL (7.4-11.0); MONOCYTES # (AUTO) 0.7 x10^3/uL (0.3-0.8); MONOCYTES % (AUTO) 7.6 % (0.0-13.0); NEUTROPHILS # (AUTO) 7.1 x10^3/uL (2.2-4.8); NEUTROPHILS % (AUTO) 79.7 % (42.0-75.0); PLATELET COUNT 223 X10^3/uL (150.0-450.0); RED BLOOD COUNT 4.59 X10^6/uL (4.7-6.0); RED CELL DISTRIBUTION WIDTH 13.2 % (11.6-16.5); WHITE BLOOD COUNT 8.9 X10^3/uL (3.6-10.0)
[2022-07-15 06:49] LABS: ALANINE AMINOTRANSFERASE 32 Units/L (12-78); ALBUMIN 3.4 g/dL (3.4-5.0); ALKALINE PHOSPHATASE 51 Units/L (46-116); ASPARTATE AMINO TRANSFERASE 21 Units/L (15-37); BLOOD UREA NITROGEN 16 mg/dL (7-18); CARBON DIOXIDE 25.2 mmol/L (21-32); CHLORIDE 106 mmol/L (98-107); CREATININE 0.92 mg/dL (0.70-1.30); GLUCOSE 104 mg/dL (65-99); POTASSIUM 3.1 mmol/L (3.5-5.1); SODIUM 142 mmol/L (136-145); eGFR NON BLACK RACES > 60 (>60)
[2022-07-15] MEDS ORDERED: K-RIDER 10 MEQ/NS 100 ML 10 MEQ/100 ML BAG IV PRN (07:19)
[2022-07-15] MEDS ORDERED: MICRO K EXTEN CAP 10 MEQ PO PRN (07:19)
[2022-07-15] MEDS ORDERED: MAGNESIUM SULFATE 1 GRAM/100 mL PREMIX 1 G/100 ML BAG IV PRN (07:19)
[2022-07-15] MEDS ORDERED: KLOR-CON PO PRN (07:19)
[2022-07-15] MEDS ORDERED: POTASSIUM CHL 40 MEQ/NS 0.45% 500 ML IV PRN (07:19)
[2022-07-15] MEDS ORDERED: POTASSIUM CHLORIDE LIQ 20 MEQ UDC PO PRN (07:19)
[2022-07-15] MEDS ORDERED: POTASSIUM CHL 60 MEQ/NS 0.45% 500 ML IV PRN (07:19)
[2022-07-15] MEDS: LOPRESSOR TAB 50 MG PO SCH ×2 (08:56→20:29)
[2022-07-15] MEDS: NORVASC TAB 10 MG PO SCH (08:56)
[2022-07-15] MEDS: K-DUR TAB 20 MEQ PO PRN (08:56)
[2022-07-15] MEDS: COZAAR PO SCH (08:56)
[2022-07-15] MEDS: PROTONIX TAB 40 MG PO SCH ×2 (08:56→20:29)
[2022-07-15] MEDS: ZOFRAN INJ 4 MG VIAL IVP PRN ×2 (10:14→17:32)
[2022-07-15] MEDS ORDERED: DILAUDID INJ ONE (17:28)
[2022-07-15] MEDS: DILAUDID INJ IVP PRN (17:37)
--- NOTE | 2022-07-15 17:43 | RAD ---
HISTORYABD PAIN, N/V, HX SBO HTN, GERD, HIATAL HERNIA, APPENDECTOMY, CHOLECYSTECTOMY, SMALL BOWEL RESECTION, SINUS, VASECTOMY, ORTHOSTUDYACUTE ABDOMEN [id number]/26/2022.FINDINGSThe heart size is normal. The aorta is tortuous. The lungs are clear without effusion. There is no free air under the diaphragm. There is gas in the small bowel with some air-fluid levels and the appearance is suggestive of ileus. There is no abnormal dilation of the large bowel. No free intra-abdominal air identified.IMPRESSIONAbnormal but nonspecific small bowel gas pattern possibly ileus.Electronically signed by: Jack Yates (Jul 15, 2022 17:42:21)
--- NOTE | 2022-07-15 18:34 | DR.H&P ---
H&P - History & Physical for Day of: H&P Date: 07/15/22 - Chief Complaint Chief Complaint: ABDOMINAL PAIN, N/V - History of Present Illness History of Present Illness: Patient is a 52 WM, ER admission after presenting with abdominal distention that began early today.He had a BM early today and was unable to pass stools afterwards.Patient's abdomen was distended and he has had intractable pain/n/v.Patient denies:fever,hematemesis,hematochezia, headache,chest pain,back pain. - Past Medical History Past Medical History: Hypertension, Anxiety, GERD, Arthritis Additional Medical History: SBO - Past Surgical History Surgical History: Abdominal Surgery, Appendectomy, Cholecystectomy, Other Additional Surgical History: Lysis of adhesions for SBO, Testicle removed - Family History Family Medical History: Cancer, Hypertension - Social History Does patient currently use any type of tobacco product: No Have you used tobacco products in the last 12 months: No Type of Tobacco Use: None Does any household member use tobacco: No Alcohol Use: None Drug Use: None - Medications Home Medications: Home Medications Medication Instructions Recorded Confirmed Type hydrocodone 10 mg-acetaminophen 1 tab PO Q6HR PRN Pain 03/12/21 07/14/22 History 325 mg tablet metoclopramide HCl 10 mg tablet 10 mg PO Q6H PRN GERD 03/12/21 07/14/22 History metoprolol tartrate 50 mg tablet 25 mg PO BID 03/12/21 07/14/22 History tizanidine 4 mg tablet 4 mg PO Q8H PRN 03/12/21 07/14/22 History amlodipine 10 mg tablet 5 mg PO DAILY 05/29/21 07/14/22 History hydrochlorothiazide 25 mg tablet 25 mg PO DAILY PRN 05/29/21 07/14/22 History losartan 100 mg tablet 100 mg PO QAM 05/29/21 07/14/22 History clonazepam 1 mg tablet 1 mg PO QHS PRN 09/25/21 07/14/22 History quetiapine 25 mg tablet 1 tab PO QPM 09/25/21 07/14/22 History - Review of Systems Constitutional: No Symptoms Reported Eyes: No Symptoms Reported ENT: No Symptoms Reported Respiratory: No Symptoms Reported Cardiovascular: No Symptoms Reported Gastrointestinal: Nausea, Vomiting, Abdominal Pain. denies: Diarrhea, Constipation, Melena, Hematochezia Genitourinary: No Symptoms Reported Musculoskeletal: Back Pain Skin: No Symptoms Reported Neurological: No Symptoms Reported - Physical Exam Vital Signs: Temperature 97.7 F Temperature 98.0 F Pulse Rate [Left Brachial] 64 Pulse Rate 88 Respiratory Rate 18 Respiratory Rate 22 Blood Pressure [Left Arm] 103/60 Blood Pressure 135/82 O2 Sat by Pulse Oximetry 96 O2 Sat by Pulse Oximetry 99 Oriented: Normal Eyes: Normal Ear: Normal Nose: Normal Throat: Normal Respiratory: Clear Throughout Cardiovascular: Normal : Normal Auscultation: Bowel Sounds: Decreased Palpation: Other (diffuse abdominal distention) Tenderness: Diffuse Skin: Decreased Turgur Musculoskeletal: Back:Lumbar Psychiatric: Anxiety Affect: Anxious Speech Pattern: Clear, Appropriate - Assessment/Plan (1) Enteritis Status: Acute Plan: ADMIT, NPO, IV HYDRATION. PAIN AND NAUSEA CONTROL. PPI THERAPY, REPEAT ABD SERIES. POTASSIUM REPLACEMENT, LACTIC ACID LEVEL. BP CONTROL (2) Abdominal pain Status: Acute (3) Hypertension Status: Chronic (4) Hyperlipidemia Status: Chronic (5) Small bowel obstruction due to adhesions Status: None - Allergies Allergies/Adverse Reactions: Allergies Allergy/AdvReac Type Severity Reaction Status Date / Time No Known Drug Allergies Allergy Verified 07/14/22 18:58 [NKDA]
[2022-07-15] MEDS: SEROquel TAB 25 mg PO SCH (20:29)
[2022-07-15] MEDS: KLONOPIN TAB 1 MG PO PRN (20:29)
[2022-07-16] MEDS: DILAUDID INJ IVP PRN ×4 (04:43→20:30)
[2022-07-16] MEDS: ZOSYN VIAL 3.375 GRAMS 3.375 G in NS 100 ML IV 100 ML IV SCH ×3 (05:54→21:10)
[2022-07-16] MEDS: ZOFRAN INJ 4 MG VIAL IVP PRN (05:55)
[2022-07-16 06:27] LABS: BASOPHILS % (AUTO) 0.3 % (0.2-1.0); EOSINOPHILS # (AUTO) 0.2 x10^3/uL (0.0-0.2); EOSINOPHILS % (AUTO) 4.4 % (0.9-2.9); HEMATOCRIT 38.5 % (42.0-54.0); HEMOGLOBIN 13.5 g/dL (13.5-18.0); LYMPHOCYTES % (AUTO) 18.9 % (21.0-51.0); MEAN CORPUSCULAR HEMOGLOBIN 29.6 pg (27.0-34.0); MEAN CORPUSCULAR HGB CONC 35.1 g/dL (33.0-35.0); MEAN CORPUSCULAR VOLUME 84.4 fL (80.0-100.0); MONOCYTES # (AUTO) 0.5 x10^3/uL (0.3-0.8); MONOCYTES % (AUTO) 8.4 % (0.0-13.0); NEUTROPHILS # (AUTO) 3.7 x10^3/uL (2.2-4.8); PLATELET COUNT 213 X10^3/uL (150.0-450.0); RED BLOOD COUNT 4.56 X10^6/uL (4.7-6.0); RED CELL DISTRIBUTION WIDTH 13.1 % (11.6-16.5); WHITE BLOOD COUNT 5.4 X10^3/uL (3.6-10.0)
[2022-07-16 06:46] LABS: LACTIC ACID 0.5 mmol/L (0.4-2.0)
[2022-07-16 06:53] LABS: ALANINE AMINOTRANSFERASE 139 Units/L (12-78); ALBUMIN 3.3 g/dL (3.4-5.0); ALKALINE PHOSPHATASE 77 Units/L (46-116); ASPARTATE AMINO TRANSFERASE 79 Units/L (15-37); BLOOD UREA NITROGEN 13 mg/dL (7-18); CARBON DIOXIDE 26.2 mmol/L (21-32); CHLORIDE 106 mmol/L (98-107); COR CA(FOR HYPOALB) 8.6 mg/dL (8.5-10.1); CREATININE 0.99 mg/dL (0.70-1.30); GLUCOSE 92 mg/dL (65-99); MAGNESIUM 2.1 mg/dL (2.0-2.9); POTASSIUM 3.6 mmol/L (3.5-5.1); SODIUM 141 mmol/L (136-145); TOTAL PROTEIN 5.9 g/dL (6.4-8.2); eGFR NON BLACK RACES > 60 (>60)
[2022-07-16] MEDS: PROTONIX TAB 40 MG PO SCH ×2 (09:27→20:29)
[2022-07-16] MEDS: NORVASC TAB 10 MG PO SCH (09:27)
[2022-07-16] MEDS: LOPRESSOR TAB 50 MG PO SCH ×2 (09:28→20:29)
[2022-07-16] MEDS: K-DUR TAB 20 MEQ PO PRN (09:28)
[2022-07-16] MEDS: COZAAR PO SCH (09:28)
--- NOTE | 2022-07-16 10:28 | RAD ---
HISTORYABD PAIN, N/V, HX SBO.br.br.br.br.br ABDOMEN SERIESCOMPARISONAcute abdomen series 07/15/2022.TECHNIQUEFive images, acute abdomen series.FINDINGSThe cardiac and mediastinal contours are within normal limits. The lungs are clear without focal consolidation or segmental collapse. No pleural effusion or pneumothorax.There is a loop of mildly dilated small bowel in the left xavi abdomen measuring 3.8 cm.. No definite pneumatosis, free air or portal venous gas. No suspicious abdominal calcifications. Status post cholecystectomy. Calcifications in the pelvis are likely phleboliths.IMPRESSIONMildly dilated small bowel can be seen with enteritis and obstruction.Electronically signed by: Aden Villafuerte (Jul 16, 2022 10:26:54)
[2022-07-16] MEDS ORDERED: ZITHROMAX TAB 250 MG PO ONE (13:16)
--- NOTE | 2022-07-16 18:48 | PCM.PROG ---
Progress Note - Progress Note for Day of Date of Exam: 07/16/22 - Subjective Subjective: Patient is a 52 WM, ER admission after presenting with abdominal distention that began early today.He had a BM early today and was unable to pass stools afterwards.Patient's abdomen was distended and he has had intractable pain/n/v.Patient denies:fever,hematemesis,hematochezia, headache,chest pain,back pain. Pt has normal lactic acid level and repeat level also within normal range. pt has not vomiting in the past 12 hrs, plan to try clear liquids and encourage ambulation. Pt's abdomen is still distended on exam. pt reports some flatulence w/o BM since admission. Pt has been on potassium replacement therapy. - Past Medical Family Social History Past Med/Fam/Surg Hx: No changes since H&P Allergies: Allergies No Known Drug Allergies [NKDA] Allergy (Verified 07/14/22 18:58) - Vital Signs and I&O's Vital Signs: Temperature 98.5 F Temperature 98.0 F Pulse Rate [Left Brachial] 62 Pulse Rate 88 Respiratory Rate 20 Respiratory Rate 22 Blood Pressure [Left Arm] 111/70 Blood Pressure 135/82 O2 Sat by Pulse Oximetry 96 O2 Sat by Pulse Oximetry 99 Intake and Output: Intake & Output 07/14/22 07/15/22 07/16/22 07/17/22 11:59 11:59 11:59 11:59 Intake Total 1159 / 1159 750 / 750 Balance 1159 / 1159 750 / 750 - Physical Exam Oriented: Normal Eyes: Normal Ear: Normal Nose: Normal Throat: Normal Respiratory: Diminished Cardiovascular: Normal : Normal Auscultation: Bowel Sounds: Decreased Tenderness: Diffuse Skin: Decreased Turgur Musculoskeletal: Back:Lumbar Psychiatric: Anxiety Affect: Anxious Speech Pattern: Clear, Appropriate - Laboratory and Diagnostics Result Diagrams: 07/16/22 06:09 07/16/22 05:34 Labs: Laboratory WBC 5.4 X10^3/uL (3.6-10.0) 07/16/22 06:09 RBC 4.56 X10^6/uL (4.7-6.0) L 07/16/22 06:09 Hgb 13.5 g/dL (13.5-18.0) 07/16/22 06:09 Hct 38.5 % (42.0-54.0) L 07/16/22 06:09 MCV 84.4 fL (80.0-100.0) 07/16/22 06:09 MCH 29.6 pg (27.0-34.0) 07/16/22 06:09 MCHC 35.1 g/dL (33.0-35.0) H 07/16/22 06:09 RDW 13.1 % (11.6-16.5) 07/16/22 06:09 Plt Count 213 X10^3/uL (150.0-450.0) 07/16/22 06:09 MPV 8.0 fL (7.4-11.0) 07/16/22 06:09 Neut % (Auto) 68.0 % (42.0-75.0) 07/16/22 06:09 Lymph % (Auto) 18.9 % (21.0-51.0) L 07/16/22 06:09 [place] % (Auto) 8.4 % (0.0-13.0) 07/16/22 06:09 Eos % (Auto) 4.4 % (0.9-2.9) H 07/16/22 06:09 Baso % (Auto) 0.3 % (0.2-1.0) 07/16/22 06:09 Neut # (Auto) 3.7 x10^3/uL (2.2-4.8) 07/16/22 06:09 Lymph # (Auto) 1.0 X10^3/uL (1.3-2.9) L 07/16/22 06:09 [place] # (Auto) 0.5 x10^3/uL (0.3-0.8) 07/16/22 06:09 Eos # (Auto) 0.2 x10^3/uL (0.0-0.2) 07/16/22 06:09 Baso # (Auto) 0.0 X10^3/uL (0.0-0.1) 07/16/22 06:09 Absolute Nucleated RBC 0.1 /100WBC 07/16/22 06:09 Sodium 141 mmol/L (136-145) 07/16/22 05:34 Corrected Sodium TNP 07/16/22 05:34 Potassium 3.6 mmol/L (3.5-5.1) 07/16/22 05:34 Chloride 106 mmol/L (98-107) 07/16/22 05:34 Carbon Dioxide 26.2 mmol/L (21-32) 07/16/22 05:34 BUN 13 mg/dL (7-18) 07/16/22 05:34 Creatinine 0.99 mg/dL (0.70-1.30) 07/16/22 05:34 Est GFR (MDRD) Af Amer > 60 (>60) 07/16/22 05:34 Est GFR (MDRD) Non-Af > 60 (>60) 07/16/22 05:34 Glucose 92 mg/dL (65-99) 07/16/22 05:34 POC Glucose (mg/dL) 101 mg/dL (65-99) H 07/15/22 05:14 Lactic Acid 0.5 mmol/L (0.4-2.0) 07/16/22 05:34 Calcium 8.0 mg/dL (8.5-10.1) L 07/16/22 05:34 Corrected Calcium 8.6 mg/dL (8.5-10.1) 07/16/22 05:34 Magnesium 2.1 mg/dL (2.0-2.9) 07/16/22 05:34 Total Bilirubin 1.30 mg/dL (0.2-1.0) H 07/16/22 05:34 AST 79 Units/L (15-37) H 07/16/22 05:34 ALT 139 Units/L (12-78) H 07/16/22 05:34 Alkaline Phosphatase 77 Units/L (46-116) 07/16/22 05:34 Total Protein 5.9 g/dL (6.4-8.2) L 07/16/22 05:34 Albumin 3.3 g/dL (3.4-5.0) L 07/16/22 05:34 Globulin 2.6 g/dL (2.5-4.5) 07/16/22 05:34 Albumin/Globulin Ratio 1.3 Ratio (1.1-2.1) 07/16/22 05:34 Lipase 62 Units/L (73-393) L 07/14/22 19:31 Specimen Type Clean catch urine 07/14/22 20:10 Urine Color Yellow (YELLOW) 07/14/22 20:10 Urine Appearance Clear (CLEAR) 07/14/22 20:10 Urine pH 6.0 (5.0 - 8.0) 07/14/22 20:10 Ur Specific [place] 1.015 (1.000-1.030) 07/14/22 20:10 Urine Protein 1+ (NEGATIVE) 07/14/22 20:10 Urine Glucose (UA) Negative (NEGATIVE) 07/14/22 20:10 Urine Ketones Negative (NEGATIVE) 07/14/22 20:10 Urine Blood Negative (NEGATIVE) 07/14/22 20:10 Urine Nitrite Negative (NEGATIVE) 07/14/22 20:10 Urine Bilirubin Negative (NEGATIVE) 07/14/22 20:10 Urine Urobilinogen 1+ (NORMAL) 07/14/22 20:10 Ur Leukocyte Esterase Negative (NEGATIVE) 07/14/22 20:10 Urine RBC 0-2 /HPF (0-3) 07/14/22 20:10 Urine WBC 0-2 /HPF (0-5) 07/14/22 20:10 Ur Squamous Epith Cells Rare /HPF (NEGATIVE) 07/14/22 20:10 Urine Bacteria Trace /HPF (NEGATIVE) 07/14/22 20:10 RBC Casts Rare /LPF (NEGATIVE) 07/14/22 20:10 Urine Mucus Few /HPF (NEGATIVE) 07/14/22 20:10 Ur Culture Indicated? No/not indicated 07/14/22 20:10 - Plan (1) Enteritis Status: Acute Plan: NPO, IV HYDRATION. PAIN AND NAUSEA CONTROL. PPI THERAPY, REPEAT ABD SERIES. POTASSIUM REPLACEMENT, LACTIC ACID LEVEL. BP CONTROL (2) Abdominal pain Status: Acute (3) Hypertension Status: Chronic (4) Hyperlipidemia Status: Chronic (5) Small bowel obstruction due to adhesions Status: None
[2022-07-16] MEDS: SEROquel TAB 25 mg PO SCH (20:29)
[2022-07-16] MEDS: KLONOPIN TAB 1 MG PO PRN (20:29)
[2022-07-17] MEDS: DILAUDID INJ IVP PRN ×5 (04:02→22:55)
[2022-07-17] MEDS: ZOSYN VIAL 3.375 GRAMS 3.375 G in NS 100 ML IV 100 ML IV SCH ×3 (05:59→21:10)
[2022-07-17] MEDS: ZOFRAN INJ 4 MG VIAL IVP PRN ×3 (06:15→20:31)
[2022-07-17 07:19] LABS: BASOPHILS % (AUTO) 0.2 % (0.2-1.0); EOSINOPHILS # (AUTO) 0.2 x10^3/uL (0.0-0.2); EOSINOPHILS % (AUTO) 2.5 % (0.9-2.9); HEMATOCRIT 36.9 % (42.0-54.0); HEMOGLOBIN 13.2 g/dL (13.5-18.0); MEAN CORPUSCULAR HEMOGLOBIN 29.9 pg (27.0-34.0); MEAN CORPUSCULAR HGB CONC 35.7 g/dL (33.0-35.0); MEAN CORPUSCULAR VOLUME 83.9 fL (80.0-100.0); MONOCYTES # (AUTO) 0.4 x10^3/uL (0.3-0.8); MONOCYTES % (AUTO) 6.7 % (0.0-13.0); NEUTROPHILS # (AUTO) 4.8 x10^3/uL (2.2-4.8); NEUTROPHILS % (AUTO) 74.6 % (42.0-75.0); PLATELET COUNT 217 X10^3/uL (150.0-450.0); RED CELL DISTRIBUTION WIDTH 12.8 % (11.6-16.5); WHITE BLOOD COUNT 6.4 X10^3/uL (3.6-10.0)
[2022-07-17 07:20] LABS: ALANINE AMINOTRANSFERASE 126 Units/L (12-78); ALBUMIN 3.3 g/dL (3.4-5.0); ALKALINE PHOSPHATASE 89 Units/L (46-116); ASPARTATE AMINO TRANSFERASE 58 Units/L (15-37); BLOOD UREA NITROGEN 13 mg/dL (7-18); CALCIUM 8.1 mg/dL (8.5-10.1); CARBON DIOXIDE 27.7 mmol/L (21-32); CHLORIDE 103 mmol/L (98-107); COR CA(FOR HYPOALB) 8.7 mg/dL (8.5-10.1); CREATININE 1.01 mg/dL (0.70-1.30); GLUCOSE 92 mg/dL (65-99); POTASSIUM 3.6 mmol/L (3.5-5.1); SODIUM 141 mmol/L (136-145); TOTAL PROTEIN 5.9 g/dL (6.4-8.2); eGFR NON BLACK RACES > 60 (>60)
[2022-07-17] MEDS: LOPRESSOR TAB 50 MG PO SCH ×2 (09:14→20:35)
[2022-07-17] MEDS: NORVASC TAB 10 MG PO SCH (09:14)
[2022-07-17] MEDS: COZAAR PO SCH (09:14)
[2022-07-17] MEDS: PROTONIX TAB 40 MG PO SCH ×2 (09:14→20:35)
[2022-07-17] MEDS ORDERED: ZITHROMAX TAB 250 MG PO ONE (09:34)
--- NOTE | 2022-07-17 13:00 | RAD ---
HISTORYSBO abdominal painSTUDYKUBCOMPARISONAbdominopelvic CT examination dated July 14, 2022.FINDINGSEvaluation of the abdomen demonstrates a stable bowel gas pattern with several prominent loops of small bowel again seen in the mid abdomen, as discussed previously. No pathological soft tissue mass or calcification can be observed. The bony structures are grossly intact.IMPRESSIONUnchanged bowel gas pattern which could be best followed up with CT imaging of the abdomen/pelvis.Electronically signed by: MARIE KO III (Jul 17, 2022 12:58:24)
[2022-07-17] MEDS ORDERED: NS 100 ML IV 100 ML ONE (16:54)
--- NOTE | 2022-07-17 17:23 | CT ---
ABDOMEN/PELVIS WITH CONIndication:"SBO"Technique: Helical CT images of the abdomen and pelvis were obtained with IV contrast. Reformatted images in the coronal and sagittal planes were also generated for review.Comparison: 07/14/2022Findings: Lung bases are clear of acute infiltrates. There is no acute osseous abnormality.Gallbladder is absent. No focal hepatic lesion is identified. Main portal vein is patent. The spleen, pancreas, adrenals and kidneys demonstrate no acute abnormality. Tiny probable cyst within the anterior mid left kidney noted.Oral contrast is present throughout the GI tract to the level of the proximal transverse colon. No abnormally dilated loops of small-bowel are seen to suggest bowel obstruction. Colon and rectum demonstrate no acute abnormality. Appendix is not definitively identified and may be absent. Small hiatal hernia noted.Abdominal aorta is normal in caliber. Urinary bladder is grossly unremarkable. Prostate is not enlarged. There is no free air, free fluid or lymphadenopathy.Impression:No SBO or additional acute abdominal pelvic abnormality.Electronically signed by: WILL MULLEN (Jul 17, 2022 17:22:17)
[2022-07-17] MEDS: KLONOPIN TAB 1 MG PO PRN (20:30)
[2022-07-17] MEDS: SEROquel TAB 25 mg PO SCH (22:54)
[2022-07-18] MEDS ORDERED: NS 1,000 ML IV 1,000 ML ONE (04:19)
[2022-07-18] MEDS: ZOFRAN INJ 4 MG VIAL IVP PRN (04:36)
[2022-07-18] MEDS: DILAUDID INJ IVP PRN ×2 (04:37→08:37)
[2022-07-18] MEDS: ZOSYN VIAL 3.375 GRAMS 3.375 G in NS 100 ML IV 100 ML IV SCH (05:43)
[2022-07-18 06:42] LABS: BASOPHILS % (AUTO) 0.3 % (0.2-1.0); EOSINOPHILS # (AUTO) 0.2 x10^3/uL (0.0-0.2); EOSINOPHILS % (AUTO) 2.6 % (0.9-2.9); HEMATOCRIT 38.5 % (42.0-54.0); HEMOGLOBIN 13.6 g/dL (13.5-18.0); LYMPHOCYTES # (AUTO) 0.9 X10^3/uL (1.3-2.9); LYMPHOCYTES % (AUTO) 13.7 % (21.0-51.0); MEAN CORPUSCULAR HGB CONC 35.5 g/dL (33.0-35.0); MEAN CORPUSCULAR VOLUME 84.5 fL (80.0-100.0); MEAN PLATELET VOLUME 7.7 fL (7.4-11.0); MONOCYTES # (AUTO) 0.4 x10^3/uL (0.3-0.8); MONOCYTES % (AUTO) 6.6 % (0.0-13.0); NEUTROPHILS # (AUTO) 4.9 x10^3/uL (2.2-4.8); NEUTROPHILS % (AUTO) 76.8 % (42.0-75.0); PLATELET COUNT 214 X10^3/uL (150.0-450.0); RED BLOOD COUNT 4.56 X10^6/uL (4.7-6.0); RED CELL DISTRIBUTION WIDTH 12.8 % (11.6-16.5); WHITE BLOOD COUNT 6.4 X10^3/uL (3.6-10.0)
[2022-07-18 06:57] LABS: ALANINE AMINOTRANSFERASE 102 Units/L (12-78); ALBUMIN 3.5 g/dL (3.4-5.0); ALKALINE PHOSPHATASE 90 Units/L (46-116); ASPARTATE AMINO TRANSFERASE 36 Units/L (15-37); BLOOD UREA NITROGEN 11 mg/dL (7-18); CALCIUM 8.3 mg/dL (8.5-10.1); CARBON DIOXIDE 30.9 mmol/L (21-32); CHLORIDE 103 mmol/L (98-107); CREATININE 1.02 mg/dL (0.70-1.30); GLUCOSE 98 mg/dL (65-99); POTASSIUM 3.4 mmol/L (3.5-5.1); SODIUM 143 mmol/L (136-145); TOTAL PROTEIN 6.2 g/dL (6.4-8.2); eGFR NON BLACK RACES > 60 (>60)
[2022-07-18] MEDS: LOPRESSOR TAB 50 MG PO SCH (08:37)
[2022-07-18] MEDS: NORVASC TAB 10 MG PO SCH (08:38)
[2022-07-18] MEDS: PROTONIX TAB 40 MG PO SCH (08:38)
[2022-07-18] MEDS: COZAAR PO SCH (08:38)
[2022-07-18 09:00] VITALS: BP 130/74; PULSE 93; TEMP 98.1; O2SAT 95
== END 2022-07-18 11:50 | disposition home or self-care (01) ==
LOC: MED/SURG 18:45 → ER 18:45 → MED/SURG 07-15 00:48
PROVIDERS: ADMIT Internal Medicine; ATTEND Internal Medicine
DX: R10.84 Generalized abdominal pain; K52.89 Other specified noninfective gastroenteritis and colitis; K92.1 Melena; E78.2 Mixed hyperlipidemia; K56.51 Intestinal adhesions [bands], with partial obstruction; K44.9 Diaphragmatic hernia without obstruction or gangrene; K21.9 Gastro-esophageal reflux disease without esophagitis; E87.6 Hypokalemia; I10 Essential (primary) hypertension; F41.8 Other specified anxiety disorders; R11.2 Nausea with vomiting, unspecified

== ENCOUNTER 2023-07-18 09:18 | Observation (INO) ==
--- NOTE | 2023-07-18 09:54 | DR.ABDMALE ---
HPI Time seen Time Seen by Provider: 07/18/23 09:53 PCP Primary Care Physician: Dodie Complaint Chief Complaint Doctors Comments: Nausea and vomiting and upper abdominal pain that started 7 hours ago. Chief Complaint:: Patient stated that starting around 3am he become naseated and started vomiting with upper abdominal pain. Self Treatment fo Chief Complaint: N/A COVID-19 Coronavirus risk:travel/contact w/high risk person: No Has patient experienced Coronavirus symptoms: No Source History provided by:: PATIENT Mode of arrival Mode of Arrival: Wheelchair Timing Onset of Chief Complaint: 07/18/23 PMH PMH Past Medical History: Yes Past Medical History: Anxiety, Arthritis, GERD and Hypertension Past Medical History Comment: Small Bowel Obstruction. Past Surgical History: Yes Surgical History: Abdominal Surgery, Appendectomy, Cholecystectomy, Ortho Surgery and Other Family History History of Family Medical Conditions: Yes Family Medical History: Cancer and Hypertension Social History Does patient currently use any type of tobacco product: No Have you used tobacco products in the last 12 months: No Type of Tobacco Use: None Does any household member use tobacco: No Alcohol Use: Rarely Do you use any recreational Drugs:: No Lives With: Family Lives Where: Home Travel Risk Coronavirus risk:travel/contact w/high risk person: No Has patient experienced Coronavirus symptoms: No Infectious screening In the last 2 months have you had wt loss of >10#?: NO Have you had fever, night sweats or hemotysis?: No Have you traveled outside the country in the last 6 months?: No Isolation: Standard ROS Review of Systems Constitutional: Other (Abdominal distention with nausea and vomiting) Eyes: No Symptoms Reported ENTM: No Symptoms Reported Respiratoy: No Symptoms Reported Cardiovascular: No Symptoms Reported Gastrointestinal/Abdominal: Abdominal Pain, Nausea and Vomiting Genitourinary: No Symptoms Reported Neurological: No Symptoms Reported Musculoskeletal: No Symptoms Reported Integumentary: No Symptoms Reported Hematologic/Lymphatic: No Symptoms Reported Endocrine: No Symptoms Reported Psychiatric: No Symptoms Reported PE Vital Signs Vital Signs: Temp Pulse Resp BP Pulse Ox O2 Del Method 07/18/23 17:15 87 93 L 07/18/23 15:29 22 07/18/23 17:01 77 90 L 07/18/23 17:01 118/69 07/18/23 17:00 77 89 L 07/18/23 16:45 77 88 L 07/18/23 16:30 114/73 07/18/23 16:30 72 91 L 07/18/23 16:15 72 07/18/23 16:00 74 07/18/23 16:00 118/66 07/18/23 15:45 74 07/18/23 15:30 155/90 07/18/23 15:30 76 85 L 07/18/23 15:15 71 07/18/23 15:00 151/86 07/18/23 15:00 76 96 07/18/23 14:54 149/89 07/18/23 14:54 76 97 07/18/23 14:45 80 95 07/18/23 14:30 84 96 07/18/23 14:15 77 95 07/18/23 14:00 81 94 L 07/18/23 13:45 89 96 07/18/23 13:30 70 81 L 07/18/23 13:15 74 97 07/18/23 13:00 92 H 97 07/18/23 12:45 73 88 L 07/18/23 12:30 75 88 L 07/18/23 12:15 72 85 L 07/18/23 12:00 69 90 L 07/18/23 11:45 69 94 L 07/18/23 11:36 73 98 07/18/23 11:15 82 96 07/18/23 14:59 24 07/18/23 14:59 24 07/18/23 11:20 24 07/18/23 11:00 128/72 07/18/23 11:00 70 90 L 07/18/23 10:45 71 07/18/23 10:31 66 83 L 07/18/23 10:31 154/103 07/18/23 10:30 67 80 L 07/18/23 10:15 72 85 L 07/18/23 10:00 147/90 07/18/23 10:00 74 100 07/18/23 09:45 74 99 07/18/23 09:36 79 100 07/18/23 09:20 98.5 F 84 24 139/82 100 Room Air General Limitations: No Limitations General Appearance: In Distress (moderate distress) Head Head Exam: Normal Inspection, Atraumatic and Normocephalic Eyes Eye exam: Normal Appearance and PERRL ENT ENT Exam: Normal Exam, Normal Oropharynx and Normal External Ear Exam Neck Neck Exam: Normal Inspection, Full ROM and Trachea Midline Chest Chest Inspection: Normal Inspection and Symmetric Chest Wall Rise Respiratory Respiratory Exam: Normal Lung Sounds Bilat Respiratory Exam: Bilateral: Clear to Auscultation Cardiovascular Cardiovascular Exam: Regular Rate and Normal Rhythm Abdominal Exam Abdominal Exam: Distention and Tenderness Rectal Rectal Exam: Deferred Back Back Exam: Normal Inspection Extremeties Extremities Exam: Normal Inspection and Full ROM Psychiatric Psychiatric Exam: Agitated Skin Skin Exam: Warm, Dry and Intact MDM Differential Diagnosis Differential Diagnosis: Bowel Obstruction, Constipation and Other (comments) (enteritis) COURSE Treatment Treatment: This patient continued to have abdominal pain and did have some nausea while was here. Dr. Yeager came and saw the patient and he Me with this patient said he has had lots about small bowel obstruction and he would need to be put into bowel risk given fluids and control his pain normally his symptoms does resolve in a couple days he would come in to see the patient in the needed be doing the observation. I doubt did talk to Dr. Cr at 1540 and she states she would except the patient for evaluation and treatment for possible small bowel obstruction. The patient was given a total of 4 mg of morphine in the ER for pain and 4 mg of Zofran IV. We will be admitting him with normal saline going at 125 cc an hour and patient will be covered also with Zosyn 3.375 g IV every 8 hours. [facility]OR Labs Reviewed Laboratory Results Reviewed?: Yes 07/18/23 09:45 07/18/23 09:45 Laboratory: WBC 11.3 X10^3/uL (3.6-10.0) H 07/18/23 09:45 RBC 5.09 X10^6/uL (4.7-6.0) 07/18/23 09:45 Hgb 15.4 g/dL (13.5-18.0) 07/18/23 09:45 Hct 44.5 % (42.0-54.0) 07/18/23 09:45 MCV 87.4 fL (80.0-100.0) 07/18/23 09:45 MCH 30.3 pg (27.0-34.0) 07/18/23 09:45 MCHC 34.6 g/dL (33.0-35.0) 07/18/23 09:45 RDW 13.9 % (11.6-16.5) 07/18/23 09:45 Plt Count 239 X10^3/uL (150.0-450.0) 07/18/23 09:45 MPV 7.9 fL (7.4-11.0) 07/18/23 09:45 Neut % (Auto) 88.1 % (42.0-75.0) H 07/18/23 09:45 Lymph % (Auto) 7.1 % (21.0-51.0) L 07/18/23 09:45 [place] % (Auto) 4.4 % (0.0-13.0) 07/18/23 09:45 Eos % (Auto) 0.2 % (0.9-2.9) L 07/18/23 09:45 Baso % (Auto) 0.2 % (0.2-1.0) 07/18/23 09:45 Neut # (Auto) 10.0 x10^3/uL (2.2-4.8) H 07/18/23 09:45 Lymph # (Auto) 0.8 X10^3/uL (1.3-2.9) L 07/18/23 09:45 [place] # (Auto) 0.5 x10^3/uL (0.3-0.8) 07/18/23 09:45 Eos # (Auto) 0.0 x10^3/uL (0.0-0.2) 07/18/23 09:45 Baso # (Auto) 0.0 X10^3/uL (0.0-0.1) 07/18/23 09:45 Absolute Nucleated RBC 0.1 /100WBC 07/18/23 09:45 Sodium 141 mmol/L (136-145) 07/18/23 09:45 Corrected Sodium 142 mmol/L (136-145) 07/18/23 09:45 Potassium 3.7 mmol/L (3.5-5.1) 07/18/23 09:45 Chloride 104 mmol/L (98-107) 07/18/23 09:45 Carbon Dioxide 24.2 mmol/L (21-32) 07/18/23 09:45 BUN 15 mg/dL (7-18) 07/18/23 09:45 Creatinine 1.01 mg/dL (0.70-1.30) 07/18/23 09:45 Est GFR (MDRD) Af Amer > 60 (>60) 07/18/23 09:45 Est GFR (MDRD) Non-Af > 60 (>60) 07/18/23 09:45 Glucose 152 mg/dL (65-99) H 07/18/23 09:45 Calcium 9.5 mg/dL (8.5-10.1) 07/18/23 09:45 Corrected Calcium TNP 07/18/23 09:45 Total Bilirubin 1.50 mg/dL (0.2-1.0) H 07/18/23 09:45 AST 20 Units/L (15-37) 07/18/23 09:45 ALT 33 Units/L (12-78) 07/18/23 09:45 Alkaline Phosphatase 73 Units/L (46-116) 07/18/23 09:45 Total Protein 7.2 g/dL (6.4-8.2) 07/18/23 09:45 Albumin 4.2 g/dL (3.4-5.0) 07/18/23 09:45 Globulin 3.0 g/dL (2.5-4.5) 07/18/23 09:45 Albumin/Globulin Ratio 1.4 Ratio (1.1-2.1) 07/18/23 09:45 Amylase 20 Units/L (25-115) L 07/18/23 09:45 Lipase 19 Units/L (16-77) 07/18/23 09:45 Opioid Opioid Risk Tool Age (Jun box if 16-45): No History of Preadolescent Sexual Abuse: No Total: 0 Total Score Risk Category: Low Risk Copyright: Harris DOWNEY predicting aberrant behaviors Discharge Plan Diagnosis Discharge Problem: Partial obstruction of small intestine, Intractable nausea Discharge Plan Patient Disposition: 09 ADMITTED INPATIENT Condition: Stable Prescriptions: No Action meloxicam 15 mg Tablet 15 mg PO QDAY aspirin 81 mg Tablet,Delayed Release (Dr/Ec) 81 mg PO QDAY tadalafil 20 mg Tablet 20 mg PO QDAY PRN Rx Instructions: administer approximately 30min before sexual activity; do not use more than 1 dose per 24hrs pantoprazole 40 mg tablet,delayed release (DR/EC) 40 mg PO DAILY potassium chloride 20 mEq Tablet Extended Release 20 meq PO QDAY Qty: 30 2RF hydrocodone-acetaminophen 10-325 mg Tablet 1 tab PO Q6HR PRN (Reason: Pain) metoclopramide HCl 10 mg Tablet 10 mg PO Q6H PRN (Reason: GERD) metoprolol tartrate 50 mg Tablet 25 mg PO BID amlodipine 10 mg tablet 10 mg PO DAILY hydrochlorothiazide 25 mg tablet 25 mg PO DAILY losartan 100 mg tablet 100 mg PO QAM Health Concerns: Post Hospitalization: new medications and changes needed to prevent readmission or further decline. Pt educated and given instructions on all concerns. Plan of Treatment: Continue with present treatment and follow up plan. Pt is to keep follow up appointment as instructed and take medications as ordered. Orders to Discharge Patient Discharge Orders: Transfer (Routine); Ordered 07/18/23 Ordered By: Adelso Buckner Follow ups/Referrals Follow ups/Referrals: VITOR CHRISTOPHER [Primary Care Provider] - 3 days Instructions Stand Alone Forms: Post Hospital Follow Up Care
[2023-07-18] MEDS: ZOFRAN INJ 4 MG VIAL IVP ONE (09:55)
[2023-07-18 10:05] LABS: BASOPHILS % (AUTO) 0.2 % (0.2-1.0); EOSINOPHILS % (AUTO) 0.2 % (0.9-2.9); HEMATOCRIT 44.5 % (42.0-54.0); HEMOGLOBIN 15.4 g/dL (13.5-18.0); LYMPHOCYTES # (AUTO) 0.8 X10^3/uL (1.3-2.9); LYMPHOCYTES % (AUTO) 7.1 % (21.0-51.0); MEAN CORPUSCULAR HEMOGLOBIN 30.3 pg (27.0-34.0); MEAN CORPUSCULAR HGB CONC 34.6 g/dL (33.0-35.0); MEAN CORPUSCULAR VOLUME 87.4 fL (80.0-100.0); MEAN PLATELET VOLUME 7.9 fL (7.4-11.0); MONOCYTES # (AUTO) 0.5 x10^3/uL (0.3-0.8); MONOCYTES % (AUTO) 4.4 % (0.0-13.0); NEUTROPHILS % (AUTO) 88.1 % (42.0-75.0); PLATELET COUNT 239 X10^3/uL (150.0-450.0); RED BLOOD COUNT 5.09 X10^6/uL (4.7-6.0); RED CELL DISTRIBUTION WIDTH 13.9 % (11.6-16.5); WHITE BLOOD COUNT 11.3 X10^3/uL (3.6-10.0)
[2023-07-18 10:18] LABS: ALANINE AMINOTRANSFERASE 33 Units/L (12-78); ALBUMIN 4.2 g/dL (3.4-5.0); ALKALINE PHOSPHATASE 73 Units/L (46-116); AMYLASE 20 Units/L (25-115); ASPARTATE AMINO TRANSFERASE 20 Units/L (15-37); BLOOD UREA NITROGEN 15 mg/dL (7-18); CALCIUM 9.5 mg/dL (8.5-10.1); CARBON DIOXIDE 24.2 mmol/L (21-32); CHLORIDE 104 mmol/L (98-107); COR NA(FOR HYPERGLY) 142 mmol/L (136-145); CREATININE 1.01 mg/dL (0.70-1.30); GLUCOSE 152 mg/dL (65-99); LIPASE 19 Units/L (16-77); POTASSIUM 3.7 mmol/L (3.5-5.1); SODIUM 141 mmol/L (136-145); TOTAL PROTEIN 7.2 g/dL (6.4-8.2); eGFR NON BLACK RACES > 60 (>60)
[2023-07-18] MEDS: MORPHINE SULFATE INJ 2 MG INJ IVP ONE ×2 (11:20→14:59)
--- NOTE | 2023-07-18 13:03 | CT ---
ABDOMEN/PELVIS W/O CONHISTORY:UPPER ABDOMEN PAIN, PT REPORTS SCAR TISSUE IN ABDOMEN ; HX-HTN SX- CHOLECYSTECTOMY, APPENDECTOMYCOMPARISON:None.TECHNIQUE:Co ntiguous noncontrast axial CT images abdomen and pelvis. Images reviewed in the axial imaging plane with reformatted sagittal and coronal images.The above CT scan was done with automated exposure control and the mA and kV was adjusted to obtain quality images according to patient size.FINDINGS:Details of the organs are limited since intravenous and oral contrast was not used.Liver is enlarged measuring 23 by 18.6 by 20 cm.The gallbladder is surgically absent. No bile duct dilatation.Pancreas, spleen, adrenal glands, abdominal aorta appear intact.Kidneys are normal size and position. No hydronephrosis.Details of the GI tract are limited since oral contrast was not used. The stomach is mildly distended with fluid and food. There is mild thickening of bowel wall involving few loops of small bowel in the central abdomen. Subtle stranding/edema of the adjacent mesentery. No ascites. No evidence of intraperitoneal free air.Urinary bladder mildly distended with urine. Seminal vesicles and prostate appear intact.Mild spondylosis. Pulmonary bases are clear.IMPRESSION:Nonspecific mild distention of loops of small bowel containing debris with mild bowel wall thickening in the central abdomen. Stranding/edematous changes of the adjacent mesentery. Recommend follow-up small-bowel follow-through.Hepatomegaly.Cholecystectomy.THIS IS AN ELECTRONICALLY VERIFIED FINAL REPORT07/18/2023 1:00 PM - Electronically signed by Elizabeth Bautista MD
[2023-07-18] MEDS: ZOSYN VIAL 3.375 GRAMS 3.375 G in NS 100 ML IV 100 ML IV ONE (17:24)
[2023-07-18] MEDS: NS 1,000 ML IV 1,000 ML IV ONE (17:24)
[2023-07-18] MEDS: ZOSYN VIAL 3.375 GRAMS 3.375 G in NS 100 ML IV 100 ML IV SCH (17:34)
[2023-07-18 18:24] LABS: BILIRUBIN,URINE NEGATIVE (NEGATIVE); BLOOD/HEMOGLOBIN,URINE NEGATIVE (NEGATIVE); GLUCOSE, URINE NEGATIVE (NEGATIVE); KETONES,URINE 2+ (NEGATIVE); LEUKOCYTE ESTERASE ,URINE NEGATIVE (NEGATIVE); NITRITES,URINE NEGATIVE (NEGATIVE); PROTEIN,URINE NEGATIVE (NEGATIVE); UROBILINOGEN,URINE NORMAL (NORMAL)
[2023-07-18 18:30] LABS: APPEARANCE,URINE CLEAR (CLEAR); COLOR,URINE YELLOW (YELLOW)
[2023-07-18 18:36] VITALS: BMI 38.2
[2023-07-18] MEDS: NS 1,000 ML IV 1,000 ML IV SCH (18:36)
[2023-07-18] MEDS: DEMEROL INJ IVP PRN (18:42)
[2023-07-18] MEDS: ZOFRAN INJ 4 MG VIAL IVP PRN (18:42)
[2023-07-18] MEDS: NS 250 ML IV 25 ML IV PRN (22:38)
[2023-07-19 06:40] LABS: BASOPHILS % (AUTO) 0.2 % (0.2-1.0); EOSINOPHILS # (AUTO) 0.1 x10^3/uL (0.0-0.2); HEMATOCRIT 39.8 % (42.0-54.0); HEMOGLOBIN 13.7 g/dL (13.5-18.0); LYMPHOCYTES # (AUTO) 1.1 X10^3/uL (1.3-2.9); LYMPHOCYTES % (AUTO) 14.9 % (21.0-51.0); MEAN CORPUSCULAR HEMOGLOBIN 30.8 pg (27.0-34.0); MEAN CORPUSCULAR HGB CONC 34.4 g/dL (33.0-35.0); MEAN CORPUSCULAR VOLUME 89.6 fL (80.0-100.0); MEAN PLATELET VOLUME 7.9 fL (7.4-11.0); MONOCYTES # (AUTO) 0.7 x10^3/uL (0.3-0.8); MONOCYTES % (AUTO) 9.2 % (0.0-13.0); NEUTROPHILS # (AUTO) 5.5 x10^3/uL (2.2-4.8); NEUTROPHILS % (AUTO) 73.7 % (42.0-75.0); PLATELET COUNT 208 X10^3/uL (150.0-450.0); RED BLOOD COUNT 4.44 X10^6/uL (4.7-6.0); WHITE BLOOD COUNT 7.4 X10^3/uL (3.6-10.0)
[2023-07-19 06:44] LABS: ALANINE AMINOTRANSFERASE 26 Units/L (12-78); ALBUMIN 3.2 g/dL (3.4-5.0); ALKALINE PHOSPHATASE 53 Units/L (46-116); ASPARTATE AMINO TRANSFERASE 18 Units/L (15-37); BLOOD UREA NITROGEN 13 mg/dL (7-18); CALCIUM 8.1 mg/dL (8.5-10.1); CHLORIDE 108 mmol/L (98-107); COR CA(FOR HYPOALB) 8.7 mg/dL (8.5-10.1); CREATININE 0.91 mg/dL (0.70-1.30); GLUCOSE 109 mg/dL (65-99); POTASSIUM 3.9 mmol/L (3.5-5.1); SODIUM 143 mmol/L (136-145); eGFR NON BLACK RACES > 60 (>60)
--- NOTE | 2023-07-19 12:28 | DR.H&P ---
H&P History & Physical for Day of: H&P Date: 07/19/23 Chief Complaint Chief Complaint: Nausea, vomiting and abdominal pain History of Present Illness History of Present Illness: Mr. Berumen is a 53-year-old male with a past [facility] history of recurrent bowel obstructions presented with worsening abdominal pain, nausea and vomiting. ER workup showed normal white count and electrolytes. CTAP showed mild bowel wall thickening. Was consulted in the ER and recommended admission. Patient was started on IV fluids, Zosyn and pain control. This morning he states he feels about the same. He reports increased abdominal distention. He has not had any vomiting episodes overnight. He remains NPO. His last BM was yesterday. Labs/imaging: -WBC 7.4 potassium 3.9 -UA negative -CTAP reviewed Plan: Follow surgery recommendations, continue pain control and n.p.o. status. Stat KUB ordered. Patient states Demerol does not help control his pain, changed to Dilaudid as needed. Continue Zosyn. Replace electrolytes as per protocol. Monitor a.m. labs and imaging. Past Medical History Past Medical History: Anxiety, Arthritis, GERD and Hypertension Additional Medical History: SBO Past Surgical History Surgical History: Abdominal Surgery, Appendectomy, Cholecystectomy, Ortho Surgery and Other Additional Surgical History: Lysis of adhesions for SBO, Testicle removed Family History Family Medical History: Cancer and Hypertension Social History Does patient currently use any type of tobacco product: No Have you used tobacco products in the last 12 months: No Type of Tobacco Use: None Does any household member use tobacco: No Alcohol Use: None Drug Use: None Medications Home Medications: Home Medications Medication Instructions Recorded Confirmed Type hydrocodone 10 mg-acetaminophen 1 tab PO Q6HR PRN Pain 03/12/21 02/13/23 History 325 mg tablet metoclopramide HCl 10 mg tablet 10 mg PO Q6H PRN GERD 03/12/21 02/13/23 History metoprolol tartrate 50 mg tablet 25 mg PO BID 03/12/21 02/13/23 History amlodipine 10 mg tablet 10 mg PO DAILY 05/29/21 02/13/23 History hydrochlorothiazide 25 mg tablet 25 mg PO DAILY 05/29/21 02/13/23 History losartan 100 mg tablet 100 mg PO QAM 05/29/21 02/13/23 History aspirin 81 mg tablet,delayed 81 mg PO QDAY 01/13/23 02/13/23 History release meloxicam 15 mg tablet 15 mg PO QDAY 01/13/23 02/13/23 History pantoprazole 40 mg tablet,delayed 40 mg PO DAILY 01/13/23 02/13/23 History release tadalafil 20 mg tablet 20 mg PO QDAY PRN 01/13/23 02/13/23 History Allergies Allergies Allergy/AdvReac Type Severity Reaction Status Date / Time No Known Drug Allergies Allergy Verified 07/18/23 09:28 [NKDA] Labs 07/19/23 05:54 07/19/23 05:54 Labs: Laboratory WBC 7.4 X10^3/uL (3.6-10.0) 07/19/23 05:54 RBC 4.44 X10^6/uL (4.7-6.0) L 07/19/23 05:54 Hgb 13.7 g/dL (13.5-18.0) 07/19/23 05:54 Hct 39.8 % (42.0-54.0) L 07/19/23 05:54 MCV 89.6 fL (80.0-100.0) 07/19/23 05:54 MCH 30.8 pg (27.0-34.0) 07/19/23 05:54 MCHC 34.4 g/dL (33.0-35.0) 07/19/23 05:54 RDW 14.0 % (11.6-16.5) 07/19/23 05:54 Plt Count 208 X10^3/uL (150.0-450.0) 07/19/23 05:54 MPV 7.9 fL (7.4-11.0) 07/19/23 05:54 Neut % (Auto) 73.7 % (42.0-75.0) 07/19/23 05:54 Lymph % (Auto) 14.9 % (21.0-51.0) L 07/19/23 05:54 [place] % (Auto) 9.2 % (0.0-13.0) 07/19/23 05:54 Eos % (Auto) 2.0 % (0.9-2.9) 07/19/23 05:54 Baso % (Auto) 0.2 % (0.2-1.0) 07/19/23 05:54 Neut # (Auto) 5.5 x10^3/uL (2.2-4.8) H 07/19/23 05:54 Lymph # (Auto) 1.1 X10^3/uL (1.3-2.9) L 07/19/23 05:54 [place] # (Auto) 0.7 x10^3/uL (0.3-0.8) 07/19/23 05:54 Eos # (Auto) 0.1 x10^3/uL (0.0-0.2) 07/19/23 05:54 Baso # (Auto) 0.0 X10^3/uL (0.0-0.1) 07/19/23 05:54 Absolute Nucleated RBC 0.1 /100WBC 07/19/23 05:54 Sodium 143 mmol/L (136-145) 07/19/23 05:54 Corrected Sodium TNP 07/19/23 05:54 Potassium 3.9 mmol/L (3.5-5.1) 07/19/23 05:54 Chloride 108 mmol/L (98-107) H 07/19/23 05:54 Carbon Dioxide 30.0 mmol/L (21-32) 07/19/23 05:54 BUN 13 mg/dL (7-18) 07/19/23 05:54 Creatinine 0.91 mg/dL (0.70-1.30) 07/19/23 05:54 Est GFR (MDRD) Af Amer > 60 (>60) 07/19/23 05:54 Est GFR (MDRD) Non-Af > 60 (>60) 07/19/23 05:54 Glucose 109 mg/dL (65-99) H 07/19/23 05:54 Calcium 8.1 mg/dL (8.5-10.1) L 07/19/23 05:54 Corrected Calcium 8.7 mg/dL (8.5-10.1) 07/19/23 05:54 Magnesium 2.1 mg/dL (2.0-2.9) 07/19/23 05:54 Total Bilirubin 1.10 mg/dL (0.2-1.0) H 07/19/23 05:54 AST 18 Units/L (15-37) 07/19/23 05:54 ALT 26 Units/L (12-78) 07/19/23 05:54 Alkaline Phosphatase 53 Units/L (46-116) 07/19/23 05:54 Total Protein 6.0 g/dL (6.4-8.2) L 07/19/23 05:54 Albumin 3.2 g/dL (3.4-5.0) L 07/19/23 05:54 Globulin 2.8 g/dL (2.5-4.5) 07/19/23 05:54 Albumin/Globulin Ratio 1.1 Ratio (1.1-2.1) 07/19/23 05:54 Amylase 20 Units/L (25-115) L 07/18/23 09:45 Lipase 19 Units/L (16-77) 07/18/23 09:45 Specimen Type Random urine 07/18/23 17:45 Urine Color Yellow (YELLOW) 07/18/23 17:45 Urine Appearance Clear (CLEAR) 07/18/23 17:45 Urine pH 8.0 (5.0 - 8.0) 07/18/23 17:45 Ur Specific [place] 1.015 (1.000-1.030) 07/18/23 17:45 Urine Protein Negative (NEGATIVE) 07/18/23 17:45 Urine Glucose (UA) Negative (NEGATIVE) 07/18/23 17:45 Urine Ketones 2+ (NEGATIVE) 07/18/23 17:45 Urine Blood Negative (NEGATIVE) 07/18/23 17:45 Urine Nitrite Negative (NEGATIVE) 07/18/23 17:45 Urine Bilirubin Negative (NEGATIVE) 07/18/23 17:45 Urine Urobilinogen Normal (NORMAL) 07/18/23 17:45 Ur Leukocyte Esterase Negative (NEGATIVE) 07/18/23 17:45 Review of Systems Constitutional: Weakness Eyes: No Symptoms Reported ENT: No Symptoms Reported Respiratory: No Symptoms Reported Cardiovascular: No Symptoms Reported Gastrointestinal: Nausea, Vomiting and Abdominal Pain Genitourinary: No Symptoms Reported Musculoskeletal: No Symptoms Reported Skin: No Symptoms Reported Neurological: No Symptoms Reported Physical Exam Vital Signs: Vital Signs Temperature 97.6 F Pulse Rate [Bilateral Brachial 71 ] Respiratory Rate 18 Respiratory Rate 18 Respiratory Rate 18 Blood Pressure [Left Arm] 129/69 O2 Sat by Pulse Oximetry 98 Oriented: Normal Eyes: Normal Nose: Normal Throat: Normal Respiratory: Clear Throughout Cardiovascular: Normal Auscultation: Bowel Sounds: Decreased Tenderness: Diffuse, Mild and Other (distended) Skin: Normal Musculoskeletal: Normal Psychiatric: Normal Mood Description: Calm Affect: Normal Speech Pattern: Clear and Appropriate Assessment/Plan (1) Intractable nausea: Status: Acute (2) Intractable abdominal pain: Status: Acute (3) Colitis: Status: Acute (4) Acute hypokalemia: Status: Acute (5) History of small bowel obstruction: Status: Chronic Review H&P Reviewed: Yes Patient was examined?: Yes
--- NOTE | 2023-07-19 12:37 | RAD ---
EXAM: KUB HISTORY: Follow-up SBO COMPARISON: CT abdomen 07/18/2023 FINDINGS: There is selective dilatation of small bowel segments although gas is present in the colon. There i s no definite mass, visceral enlargement or calcification. Surgical clips from cholecystectomy. IMPRESSION: Intestinal gas pattern described is consistent with ileus or partial/early SBO. THIS IS AN ELECTRONICALLY VERIFIED FINAL REPORT 07/19/2023 12:34 PM - Electronically signed by Eric Masters MD
[2023-07-19] MEDS: DILAUDID INJ IVP PRN (13:19)
[2023-07-20 06:43] LABS: BASOPHILS % (AUTO) 0.2 % (0.2-1.0); EOSINOPHILS % (AUTO) 0.4 % (0.9-2.9); HEMATOCRIT 36.1 % (42.0-54.0); HEMOGLOBIN 12.7 g/dL (13.5-18.0); LYMPHOCYTES # (AUTO) 0.5 X10^3/uL (1.3-2.9); LYMPHOCYTES % (AUTO) 7.6 % (21.0-51.0); MEAN CORPUSCULAR HEMOGLOBIN 31.2 pg (27.0-34.0); MEAN CORPUSCULAR HGB CONC 35.2 g/dL (33.0-35.0); MEAN CORPUSCULAR VOLUME 88.7 fL (80.0-100.0); MEAN PLATELET VOLUME 7.9 fL (7.4-11.0); MONOCYTES # (AUTO) 0.4 x10^3/uL (0.3-0.8); MONOCYTES % (AUTO) 5.8 % (0.0-13.0); PLATELET COUNT 195 X10^3/uL (150.0-450.0); RED BLOOD COUNT 4.07 X10^6/uL (4.7-6.0); RED CELL DISTRIBUTION WIDTH 13.9 % (11.6-16.5)
[2023-07-20 07:01] LABS: ALANINE AMINOTRANSFERASE 48 Units/L (12-78); ALBUMIN 3.3 g/dL (3.4-5.0); ALKALINE PHOSPHATASE 75 Units/L (46-116); ASPARTATE AMINO TRANSFERASE 34 Units/L (15-37); BLOOD UREA NITROGEN 11 mg/dL (7-18); CALCIUM 7.8 mg/dL (8.5-10.1); CARBON DIOXIDE 28.7 mmol/L (21-32); CHLORIDE 106 mmol/L (98-107); COR CA(FOR HYPOALB) 8.4 mg/dL (8.5-10.1); CREATININE 0.95 mg/dL (0.70-1.30); GLUCOSE 105 mg/dL (65-99); MAGNESIUM 2.1 mg/dL (2.0-2.9); POTASSIUM 3.6 mmol/L (3.5-5.1); SODIUM 141 mmol/L (136-145); TOTAL PROTEIN 6.1 g/dL (6.4-8.2); eGFR NON BLACK RACES > 60 (>60)
[2023-07-20] MEDS ORDERED: CONSULT PHARMACY - POTASSIUM & MAGNESIUM XX SCH (08:00)
[2023-07-20] MEDS ORDERED: K-DUR TAB 20 MEQ PO SCH (09:00)
[2023-07-20] MEDS: NS + KCL 20 MEQ/L 1,000 ML IV SCH (09:05)
--- NOTE | 2023-07-20 11:40 | PCM.PROG ---
Progress Note Progress Note for Day of Date of Exam: 07/20/23 Subjective Subjective: Patient seen at bedside, no acute events overnight. He continues to feel the same. His abdomen is distended similar to yesterday. KUB yesterday showed ileus/early SBO. KUB this morning is pending. He states Dilaudid has been helping with pain control. He declined NG tube. Labs and imaging reviewed: -WBC 7K: 3.6 -KUB: Ileus/partial/early SBO Plan: Follow repeat KUB. Follow surgery recommendations. Continue bowel rest with n.p.o. status. Continue hydration with fluids, pain control. Continue Zosyn. Monitor a.m. labs and imaging. Past Medical Family Social History Allergies: Allergies No Known Drug Allergies [NKDA] Allergy (Verified 07/18/23 09:28) Vital Signs and I&O's Vital Signs: Vital Signs Temperature 98.6 F Temperature 98.4 F Pulse Rate [Bilateral Brachial 84 ] Pulse Rate [Bilateral Brachial 82 ] Respiratory Rate 20 Respiratory Rate 18 Respiratory Rate 21 Blood Pressure [Left Arm] 117/59 Blood Pressure [Right Arm] 97/54 O2 Sat by Pulse Oximetry 94 O2 Sat by Pulse Oximetry 94 Intake and Output: Intake & Output 07/17/23 07/18/23 07/19/23 07/20/23 23:59 23:59 23:59 23:59 Intake Total 0 / 0 2749 / 2749 1530 / 1530 Balance 0 / 0 2749 / 2749 1530 / 1530 Physical Exam Oriented: Normal Eyes: Normal Nose: Normal Throat: Normal Cardiovascular: Normal Auscultation: Bowel Sounds: Decreased Tenderness: Diffuse, Mild and Other (distended) Skin: Normal Musculoskeletal: Normal Psychiatric: Normal Mood Description: Calm Affect: Normal Speech Pattern: Clear and Appropriate Laboratory and Diagnostics 07/20/23 06:00 07/20/23 06:00 Labs: Laboratory WBC 7.0 X10^3/uL (3.6-10.0) 07/20/23 06:00 RBC 4.07 X10^6/uL (4.7-6.0) L 07/20/23 06:00 Hgb 12.7 g/dL (13.5-18.0) L 07/20/23 06:00 Hct 36.1 % (42.0-54.0) L 07/20/23 06:00 MCV 88.7 fL (80.0-100.0) 07/20/23 06:00 MCH 31.2 pg (27.0-34.0) 07/20/23 06:00 MCHC 35.2 g/dL (33.0-35.0) H 07/20/23 06:00 RDW 13.9 % (11.6-16.5) 07/20/23 06:00 Plt Count 195 X10^3/uL (150.0-450.0) 07/20/23 06:00 MPV 7.9 fL (7.4-11.0) 07/20/23 06:00 Neut % (Auto) 86.0 % (42.0-75.0) H 07/20/23 06:00 Lymph % (Auto) 7.6 % (21.0-51.0) L 07/20/23 06:00 [place] % (Auto) 5.8 % (0.0-13.0) 07/20/23 06:00 Eos % (Auto) 0.4 % (0.9-2.9) L 07/20/23 06:00 Baso % (Auto) 0.2 % (0.2-1.0) 07/20/23 06:00 Neut # (Auto) 6.0 x10^3/uL (2.2-4.8) H 07/20/23 06:00 Lymph # (Auto) 0.5 X10^3/uL (1.3-2.9) L 07/20/23 06:00 [place] # (Auto) 0.4 x10^3/uL (0.3-0.8) 07/20/23 06:00 Eos # (Auto) 0.0 x10^3/uL (0.0-0.2) 07/20/23 06:00 Baso # (Auto) 0.0 X10^3/uL (0.0-0.1) 07/20/23 06:00 Absolute Nucleated RBC 0.0 /100WBC 07/20/23 06:00 Sodium 141 mmol/L (136-145) 07/20/23 06:00 Corrected Sodium TNP 07/20/23 06:00 Potassium 3.6 mmol/L (3.5-5.1) 07/20/23 06:00 Chloride 106 mmol/L (98-107) 07/20/23 06:00 Carbon Dioxide 28.7 mmol/L (21-32) 07/20/23 06:00 BUN 11 mg/dL (7-18) 07/20/23 06:00 Creatinine 0.95 mg/dL (0.70-1.30) 07/20/23 06:00 Est GFR (MDRD) Af Amer > 60 (>60) 07/20/23 06:00 Est GFR (MDRD) Non-Af > 60 (>60) 07/20/23 06:00 Glucose 105 mg/dL (65-99) H 07/20/23 06:00 Calcium 7.8 mg/dL (8.5-10.1) L 07/20/23 06:00 Corrected Calcium 8.4 mg/dL (8.5-10.1) L 07/20/23 06:00 Magnesium 2.1 mg/dL (2.0-2.9) 07/20/23 06:00 Total Bilirubin 1.00 mg/dL (0.2-1.0) 07/20/23 06:00 AST 34 Units/L (15-37) 07/20/23 06:00 ALT 48 Units/L (12-78) 07/20/23 06:00 Alkaline Phosphatase 75 Units/L (46-116) 07/20/23 06:00 Total Protein 6.1 g/dL (6.4-8.2) L 07/20/23 06:00 Albumin 3.3 g/dL (3.4-5.0) L 07/20/23 06:00 Globulin 2.8 g/dL (2.5-4.5) 07/20/23 06:00 Albumin/Globulin Ratio 1.2 Ratio (1.1-2.1) 07/20/23 06:00 Amylase 20 Units/L (25-115) L 07/18/23 09:45 Lipase 19 Units/L (16-77) 07/18/23 09:45 Specimen Type Random urine 07/18/23 17:45 Urine Color Yellow (YELLOW) 07/18/23 17:45 Urine Appearance Clear (CLEAR) 07/18/23 17:45 Urine pH 8.0 (5.0 - 8.0) 07/18/23 17:45 Ur Specific [place] 1.015 (1.000-1.030) 07/18/23 17:45 Urine Protein Negative (NEGATIVE) 07/18/23 17:45 Urine Glucose (UA) Negative (NEGATIVE) 07/18/23 17:45 Urine Ketones 2+ (NEGATIVE) 07/18/23 17:45 Urine Blood Negative (NEGATIVE) 07/18/23 17:45 Urine Nitrite Negative (NEGATIVE) 07/18/23 17:45 Urine Bilirubin Negative (NEGATIVE) 07/18/23 17:45 Urine Urobilinogen Normal (NORMAL) 07/18/23 17:45 Ur Leukocyte Esterase Negative (NEGATIVE) 07/18/23 17:45 Plan (1) Partial obstruction of small intestine: Status: Acute (2) Intractable nausea: Status: Acute (3) Intractable abdominal pain: Status: Acute (4) Colitis: Status: Acute (5) Acute hypokalemia: Status: Acute (6) History of small bowel obstruction: Status: Chronic
[2023-07-20] MEDS: PROTONIX INJ 40 MG VIAL IVP SCH (13:12)
[2023-07-21 06:17] LABS: BASOPHILS % (AUTO) 0.1 % (0.2-1.0); EOSINOPHILS % (AUTO) 0.4 % (0.9-2.9); HEMATOCRIT 35.2 % (42.0-54.0); HEMOGLOBIN 12.2 g/dL (13.5-18.0); LYMPHOCYTES # (AUTO) 0.7 X10^3/uL (1.3-2.9); LYMPHOCYTES % (AUTO) 10.3 % (21.0-51.0); MEAN CORPUSCULAR HEMOGLOBIN 31.2 pg (27.0-34.0); MEAN CORPUSCULAR HGB CONC 34.8 g/dL (33.0-35.0); MEAN CORPUSCULAR VOLUME 89.5 fL (80.0-100.0); MEAN PLATELET VOLUME 7.7 fL (7.4-11.0); MONOCYTES # (AUTO) 0.5 x10^3/uL (0.3-0.8); MONOCYTES % (AUTO) 6.9 % (0.0-13.0); NEUTROPHILS # (AUTO) 5.8 x10^3/uL (2.2-4.8); NEUTROPHILS % (AUTO) 82.3 % (42.0-75.0); PLATELET COUNT 182 X10^3/uL (150.0-450.0); RED BLOOD COUNT 3.93 X10^6/uL (4.7-6.0); RED CELL DISTRIBUTION WIDTH 13.7 % (11.6-16.5)
[2023-07-21 06:33] LABS: ALANINE AMINOTRANSFERASE 57 Units/L (12-78); ALBUMIN 3.3 g/dL (3.4-5.0); ALKALINE PHOSPHATASE 85 Units/L (46-116); ASPARTATE AMINO TRANSFERASE 39 Units/L (15-37); BLOOD UREA NITROGEN 10 mg/dL (7-18); CALCIUM 7.8 mg/dL (8.5-10.1); CARBON DIOXIDE 29.3 mmol/L (21-32); CHLORIDE 106 mmol/L (98-107); COR CA(FOR HYPOALB) 8.4 mg/dL (8.5-10.1); CREATININE 0.83 mg/dL (0.70-1.30); GLUCOSE 100 mg/dL (65-99); POTASSIUM 3.9 mmol/L (3.5-5.1); SODIUM 141 mmol/L (136-145); TOTAL PROTEIN 6.2 g/dL (6.4-8.2); eGFR NON BLACK RACES > 60 (>60)
--- NOTE | 2023-07-21 07:34 | RAD ---
EXAM: KUB HISTORY: Partial SBO COMPARISON: 07/19/2023 FINDINGS: Submitted images of the abdomen are technically nondiagnostic. IMPRESSION: As above; repeat recommended. THIS IS AN ELECTRONICALLY VERIFIED FINAL REPORT 07/21/2023 7:30 AM - Electronically signed by Eric Masters MD
--- NOTE | 2023-07-21 07:40 | RAD ---
EXAM:KUBHISTORY:Follow-up bowel obstructionCOMPARISON:07/20/2023, 07/20/2023, CT abdomen pelvis 07/18/2023FINDINGS:Abdominal gas pattern is nonspecific and nonobstructive. No dilated air filled small bowel loops identified. There is some gas distally within the colon. No abnormal masses or abnormal calcifications are identified. Regional skeleton is intactIMPRESSION:Nonspecific, nonobstructive bowel gas patternTHIS IS AN ELECTRONICALLY VERIFIED FINAL REPORT07/21/2023 7:37 AM - Electronically signed by Aydin Benítez MD
--- NOTE | 2023-07-21 11:33 | DR.PROGNOT ---
HOSPITAL PROGRESS NOTE Progress Note for Day of: Progress Note Date: 07/21/23 Chief Complaint Chief Complaint: Vomited last night. No bowel movement yet but passing flatus. Still complaining of abdominal bloating and distention. KUB showed no evidence of obstruction. BUN/creatinine, electrolytes and CBC are within normal limits. Afebrile. Past Medical Family Social History Allergies: Allergies No Known Drug Allergies [NKDA] Allergy (Verified 07/18/23 09:28) Vital Signs Vital Signs: Vital Signs Temperature 97.8 F Temperature 98.3 F Pulse Rate [Bilateral Brachial 82 ] Pulse Rate [Bilateral Brachial 80 ] Respiratory Rate 18 Respiratory Rate 20 Respiratory Rate 20 Respiratory Rate 21 Blood Pressure [Left Arm] 112/53 Blood Pressure [Right Arm] 119/57 O2 Sat by Pulse Oximetry 92 O2 Sat by Pulse Oximetry 95 Physical Exam Oriented: Normal Eyes: Normal Nose: Normal Throat: Normal Cardiovascular: Normal GI:Auscultation: Decreased GI: Tenderness: Diffuse, Mild and Other (Abdomen is soft with Moderate distention and diffuse tenderness.) Skin: Normal Musculoskeletal: Normal Psychiatric: Normal Mood Description: Calm Affect: Normal Speech Pattern: Clear and Appropriate Laboratory and Diagnostics 07/21/23 05:42 07/21/23 05:42 Labs: Laboratory WBC 7.0 X10^3/uL (3.6-10.0) 07/21/23 05:42 RBC 3.93 X10^6/uL (4.7-6.0) L 07/21/23 05:42 Hgb 12.2 g/dL (13.5-18.0) L 07/21/23 05:42 Hct 35.2 % (42.0-54.0) L 07/21/23 05:42 MCV 89.5 fL (80.0-100.0) 07/21/23 05:42 MCH 31.2 pg (27.0-34.0) 07/21/23 05:42 MCHC 34.8 g/dL (33.0-35.0) 07/21/23 05:42 RDW 13.7 % (11.6-16.5) 07/21/23 05:42 Plt Count 182 X10^3/uL (150.0-450.0) 07/21/23 05:42 MPV 7.7 fL (7.4-11.0) 07/21/23 05:42 Neut % (Auto) 82.3 % (42.0-75.0) H 07/21/23 05:42 Lymph % (Auto) 10.3 % (21.0-51.0) L 07/21/23 05:42 [place] % (Auto) 6.9 % (0.0-13.0) 07/21/23 05:42 Eos % (Auto) 0.4 % (0.9-2.9) L 07/21/23 05:42 Baso % (Auto) 0.1 % (0.2-1.0) L 07/21/23 05:42 Neut # (Auto) 5.8 x10^3/uL (2.2-4.8) H 07/21/23 05:42 Lymph # (Auto) 0.7 X10^3/uL (1.3-2.9) L 07/21/23 05:42 [place] # (Auto) 0.5 x10^3/uL (0.3-0.8) 07/21/23 05:42 Eos # (Auto) 0.0 x10^3/uL (0.0-0.2) 07/21/23 05:42 Baso # (Auto) 0.0 X10^3/uL (0.0-0.1) 07/21/23 05:42 Absolute Nucleated RBC 0.1 /100WBC 07/21/23 05:42 Sodium 141 mmol/L (136-145) 07/21/23 05:42 Corrected Sodium TNP 07/21/23 05:42 Potassium 3.9 mmol/L (3.5-5.1) 07/21/23 05:42 Chloride 106 mmol/L (98-107) 07/21/23 05:42 Carbon Dioxide 29.3 mmol/L (21-32) 07/21/23 05:42 BUN 10 mg/dL (7-18) 07/21/23 05:42 Creatinine 0.83 mg/dL (0.70-1.30) 07/21/23 05:42 Est GFR (MDRD) Af Amer > 60 (>60) 07/21/23 05:42 Est GFR (MDRD) Non-Af > 60 (>60) 07/21/23 05:42 Glucose 100 mg/dL (65-99) H 07/21/23 05:42 Calcium 7.8 mg/dL (8.5-10.1) L 07/21/23 05:42 Corrected Calcium 8.4 mg/dL (8.5-10.1) L 07/21/23 05:42 Magnesium 2.1 mg/dL (2.0-2.9) 07/21/23 05:42 Total Bilirubin 1.00 mg/dL (0.2-1.0) 07/21/23 05:42 AST 39 Units/L (15-37) H 07/21/23 05:42 ALT 57 Units/L (12-78) 07/21/23 05:42 Alkaline Phosphatase 85 Units/L (46-116) 07/21/23 05:42 Total Protein 6.2 g/dL (6.4-8.2) L 07/21/23 05:42 Albumin 3.3 g/dL (3.4-5.0) L 07/21/23 05:42 Globulin 2.9 g/dL (2.5-4.5) 07/21/23 05:42 Albumin/Globulin Ratio 1.1 Ratio (1.1-2.1) 07/21/23 05:42 Amylase 20 Units/L (25-115) L 07/18/23 09:45 Lipase 19 Units/L (16-77) 07/18/23 09:45 Specimen Type Random urine 07/18/23 17:45 Urine Color Yellow (YELLOW) 07/18/23 17:45 Urine Appearance Clear (CLEAR) 07/18/23 17:45 Urine pH 8.0 (5.0 - 8.0) 07/18/23 17:45 Ur Specific [place] 1.015 (1.000-1.030) 07/18/23 17:45 Urine Protein Negative (NEGATIVE) 07/18/23 17:45 Urine Glucose (UA) Negative (NEGATIVE) 07/18/23 17:45 Urine Ketones 2+ (NEGATIVE) 07/18/23 17:45 Urine Blood Negative (NEGATIVE) 07/18/23 17:45 Urine Nitrite Negative (NEGATIVE) 07/18/23 17:45 Urine Bilirubin Negative (NEGATIVE) 07/18/23 17:45 Urine Urobilinogen Normal (NORMAL) 07/18/23 17:45 Ur Leukocyte Esterase Negative (NEGATIVE) 07/18/23 17:45 Assessment and Plan 1: Recurrent bowel obstruction, more of ileus pattern now. To advance diet and give enemas if needed.. Encourage ambulation.. 2: Abdominal adhesions 3: Hypertension and obesity. To check thyroid function. Problem Patient Problems: Patient Problems (Updated 07/19/23 @ 12:27 by Darlin Sy) Partial obstruction of small intestine (Acute) K56.600 Intractable nausea (Acute) R11.0
[2023-07-21] MEDS: LASIX IVP ONE (13:25)
[2023-07-21] MEDS: NS + KCL 20 MEQ/L 1,000 ML IV SCH (13:33)
[2023-07-21] MEDS: FLEET ENEMA ADULT PR ONE (13:33)
[2023-07-21] MEDS: TYLENOL 325 MG TAB PO PRN (19:09)
--- NOTE | 2023-07-21 19:26 | EKG ---
Test Reason : chest pain Blood Pressure : */* mmHG Vent. Rate : 76 BPM Atrial Rate : 76 BPM P-R Int : 150 ms QRS Dur : 118 ms QT Int : 390 ms P-R-T Axes : 18 31 49 degrees QTc Int : 438 ms Normal sinus rhythm Increased R/S ratio in V1, consider early transition or posterior infarct Abnormal ECG When compared with ECG of 15-JAN-2022 01:03, No significant change was found Confirmed by Chandler Ruiz MD ([id number]) on 07/22/2023 7:26:44 AM Referred By: Confirmed By: Chandler Ruiz MD
[2023-07-22 04:10] LABS: BASOPHILS # (AUTO) 0.1 X10^3/uL (0.0-0.1); BASOPHILS % (AUTO) 1.1 % (0.2-1.0); EOSINOPHILS # (AUTO) 0.1 x10^3/uL (0.0-0.2); EOSINOPHILS % (AUTO) 1.6 % (0.9-2.9); HEMATOCRIT 38.8 % (42.0-54.0); HEMOGLOBIN 13.4 g/dL (13.5-18.0); LYMPHOCYTES # (AUTO) 0.6 X10^3/uL (1.3-2.9); LYMPHOCYTES % (AUTO) 8.4 % (21.0-51.0); MEAN CORPUSCULAR HEMOGLOBIN 30.5 pg (27.0-34.0); MEAN CORPUSCULAR HGB CONC 34.5 g/dL (33.0-35.0); MEAN CORPUSCULAR VOLUME 88.2 fL (80.0-100.0); MEAN PLATELET VOLUME 7.5 fL (7.4-11.0); MONOCYTES # (AUTO) 0.3 x10^3/uL (0.3-0.8); MONOCYTES % (AUTO) 5.1 % (0.0-13.0); NEUTROPHILS # (AUTO) 5.7 x10^3/uL (2.2-4.8); NEUTROPHILS % (AUTO) 83.8 % (42.0-75.0); PLATELET COUNT 198 X10^3/uL (150.0-450.0); RED CELL DISTRIBUTION WIDTH 13.5 % (11.6-16.5); WHITE BLOOD COUNT 6.8 X10^3/uL (3.6-10.0)
[2023-07-22 04:24] LABS: ALANINE AMINOTRANSFERASE 42 Units/L (12-78); ALBUMIN 3.2 g/dL (3.4-5.0); ALKALINE PHOSPHATASE 72 Units/L (46-116); ASPARTATE AMINO TRANSFERASE 24 Units/L (15-37); BLOOD UREA NITROGEN 7 mg/dL (7-18); CALCIUM 8.2 mg/dL (8.5-10.1); CARBON DIOXIDE 30.7 mmol/L (21-32); CHLORIDE 103 mmol/L (98-107); COR CA(FOR HYPOALB) 8.8 mg/dL (8.5-10.1); CREATININE 0.82 mg/dL (0.70-1.30); GLUCOSE 109 mg/dL (65-99); POTASSIUM 3.3 mmol/L (3.5-5.1); SODIUM 141 mmol/L (136-145); TOTAL PROTEIN 6.1 g/dL (6.4-8.2); eGFR NON BLACK RACES > 60 (>60)
--- NOTE | 2023-07-22 09:04 | DR.PROGNOT ---
HOSPITAL PROGRESS NOTE Progress Note for Day of: Progress Note Date: 07/22/23 Chief Complaint Chief Complaint: Feeling better today and had several bowel movements, abdominal pain is subsiding with no nausea or vomiting. KUB showed nonobstructive pattern. WBC is 6.8 with shift to the left, hemoglobin 13.4, TSH 1.6, potassium 3.1. Past Medical Family Social History Allergies: Allergies No Known Drug Allergies [NKDA] Allergy (Verified 07/18/23 09:28) Review Of Systems ROS: No change since H&P Vital Signs Vital Signs: Vital Signs Temperature 98.4 F Pulse Rate [Bilateral Brachial 78 ] Respiratory Rate 20 Respiratory Rate 18 Respiratory Rate 18 Blood Pressure [Right Arm] 133/78 O2 Sat by Pulse Oximetry 96 Physical Exam Oriented: Normal Eyes: Normal Nose: Normal Throat: Normal Cardiovascular: Normal GI:Auscultation: Decreased GI: Tenderness: Diffuse, Mild and Other (Abdomen is soft with Moderate distention and diffuse tenderness.) Skin: Normal Musculoskeletal: Normal Psychiatric: Normal Mood Description: Calm Affect: Normal Speech Pattern: Clear and Appropriate Laboratory and Diagnostics 07/22/23 03:55 07/22/23 03:55 Labs: Laboratory WBC 6.8 X10^3/uL (3.6-10.0) 07/22/23 03:55 RBC 4.40 X10^6/uL (4.7-6.0) L 07/22/23 03:55 Hgb 13.4 g/dL (13.5-18.0) L 07/22/23 03:55 Hct 38.8 % (42.0-54.0) L 07/22/23 03:55 MCV 88.2 fL (80.0-100.0) 07/22/23 03:55 MCH 30.5 pg (27.0-34.0) 07/22/23 03:55 MCHC 34.5 g/dL (33.0-35.0) 07/22/23 03:55 RDW 13.5 % (11.6-16.5) 07/22/23 03:55 Plt Count 198 X10^3/uL (150.0-450.0) 07/22/23 03:55 MPV 7.5 fL (7.4-11.0) 07/22/23 03:55 Neut % (Auto) 83.8 % (42.0-75.0) H 07/22/23 03:55 Lymph % (Auto) 8.4 % (21.0-51.0) L 07/22/23 03:55 [place] % (Auto) 5.1 % (0.0-13.0) 07/22/23 03:55 Eos % (Auto) 1.6 % (0.9-2.9) 07/22/23 03:55 Baso % (Auto) 1.1 % (0.2-1.0) H 07/22/23 03:55 Neut # (Auto) 5.7 x10^3/uL (2.2-4.8) H 07/22/23 03:55 Lymph # (Auto) 0.6 X10^3/uL (1.3-2.9) L 07/22/23 03:55 [place] # (Auto) 0.3 x10^3/uL (0.3-0.8) 07/22/23 03:55 Eos # (Auto) 0.1 x10^3/uL (0.0-0.2) 07/22/23 03:55 Baso # (Auto) 0.1 X10^3/uL (0.0-0.1) 07/22/23 03:55 Absolute Nucleated RBC 0.1 /100WBC 07/22/23 03:55 Sodium 141 mmol/L (136-145) 07/22/23 03:55 Corrected Sodium TNP 07/22/23 03:55 Potassium 3.3 mmol/L (3.5-5.1) L 07/22/23 03:55 Chloride 103 mmol/L (98-107) 07/22/23 03:55 Carbon Dioxide 30.7 mmol/L (21-32) 07/22/23 03:55 BUN 7 mg/dL (7-18) 07/22/23 03:55 Creatinine 0.82 mg/dL (0.70-1.30) 07/22/23 03:55 Est GFR (MDRD) Af Amer > 60 (>60) 07/22/23 03:55 Est GFR (MDRD) Non-Af > 60 (>60) 07/22/23 03:55 Glucose 109 mg/dL (65-99) H 07/22/23 03:55 Calcium 8.2 mg/dL (8.5-10.1) L 07/22/23 03:55 Corrected Calcium 8.8 mg/dL (8.5-10.1) 07/22/23 03:55 Magnesium 2.0 mg/dL (2.0-2.9) 07/22/23 03:55 Total Bilirubin 1.50 mg/dL (0.2-1.0) H 07/22/23 03:55 AST 24 Units/L (15-37) 07/22/23 03:55 ALT 42 Units/L (12-78) 07/22/23 03:55 Alkaline Phosphatase 72 Units/L (46-116) 07/22/23 03:55 Troponin I High Sens 12.4 ng/L (4.0-60.0) 07/22/23 03:55 Total Protein 6.1 g/dL (6.4-8.2) L 07/22/23 03:55 Albumin 3.2 g/dL (3.4-5.0) L 07/22/23 03:55 Globulin 2.9 g/dL (2.5-4.5) 07/22/23 03:55 Albumin/Globulin Ratio 1.1 Ratio (1.1-2.1) 07/22/23 03:55 Amylase 20 Units/L (25-115) L 07/18/23 09:45 Lipase 19 Units/L (16-77) 07/18/23 09:45 TSH 3rd Generation 1.267 uIU/mL (0.358-3.74) 07/21/23 05:42 Specimen Type Random urine 07/18/23 17:45 Urine Color Yellow (YELLOW) 07/18/23 17:45 Urine Appearance Clear (CLEAR) 07/18/23 17:45 Urine pH 8.0 (5.0 - 8.0) 07/18/23 17:45 Ur Specific [place] 1.015 (1.000-1.030) 07/18/23 17:45 Urine Protein Negative (NEGATIVE) 07/18/23 17:45 Urine Glucose (UA) Negative (NEGATIVE) 07/18/23 17:45 Urine Ketones 2+ (NEGATIVE) 07/18/23 17:45 Urine Blood Negative (NEGATIVE) 07/18/23 17:45 Urine Nitrite Negative (NEGATIVE) 07/18/23 17:45 Urine Bilirubin Negative (NEGATIVE) 07/18/23 17:45 Urine Urobilinogen Normal (NORMAL) 07/18/23 17:45 Ur Leukocyte Esterase Negative (NEGATIVE) 07/18/23 17:45 Assessment and Plan 1: Recurrent bowel obstruction, more of ileus pattern now. To advance diet and give enemas if needed.. Encourage ambulation.. 2: Abdominal adhesions 3: Hypertension and obesity. To check thyroid function. Problem Patient Problems: Patient Problems (Updated 07/19/23 @ 12:27 by Darlin Sy) Partial obstruction of small intestine (Acute) K56.600 Intractable nausea (Acute) R11.0
--- NOTE | 2023-07-22 10:11 | RAD ---
EXAMINATION:CHEST, 1 VIEWHISTORY:CHEST PAIN; .COMPARISON STUDY:05/26/2021TECHNIQUE:A single view of the chest was obtained.FINDINGS:. Heart size is normal. No acute infiltrates. There is no pneumothorax. Hilar and mediastinal structures and bony structures are unremarkable. .IMPRESSION:No acute process in the chest.THIS IS AN ELECTRONICALLY VERIFIED FINAL REPORT07/22/2023 10:08 AM - Electronically signed by López Ortiz MD
[2023-07-22] MEDS: K-DUR TAB 20 MEQ PO NR (11:39)
[2023-07-22] MEDS: K-DUR TAB 20 MEQ PO ONE (11:39)
[2023-07-22] MEDS: LASIX IVP ONE ×2 (14:23→14:29)
[2023-07-22] MEDS: NORCO 10/325 TAB PO PRN (18:35)
[2023-07-22] MEDS: DILAUDID INJ IVP SCH (22:00)
[2023-07-23 05:09] VITALS: TEMP 98.3
--- NOTE | 2023-07-23 06:26 | RAD ---
EXAM: KUB HISTORY: Follow-up small bowel obstruction COMPARISON: 07/21/2023 KUB, 07/18/2023 CT abdomen pelvis FINDINGS: There is now a single dilated loop of small bowel in the left midabdomen. Gas is present distally within the colon. It should be noted that most of the dilated loops of small bowel present on the CT examination of 07/18/2023 were fluid-filled and may not be detectable on plain film. CT follow-up m ay be required. No abnormal masses or abnormal calcifications identified. Regional skeleton is inta ct. IMPRESSION: Single dilated loop of small bowel present in the left midabdomen with a small amount of gas distall y within the colon. Since most of the dilated small bowel loops on the CT examination of 07/18/2023 were fluid-filled they may not be detectable on plain film. Therefore continued partial small bowel obstruction can not be excluded on this examination. CT follow-up may be required. THIS IS AN ELECTRONICALLY VERIFIED FINAL REPORT 07/23/2023 6:23 AM - Electronically signed by Aydin Benítez MD
[2023-07-23 06:28] LABS: BASOPHILS % (AUTO) 0.3 % (0.2-1.0); EOSINOPHILS # (AUTO) 0.1 x10^3/uL (0.0-0.2); HEMATOCRIT 37.9 % (42.0-54.0); HEMOGLOBIN 13.6 g/dL (13.5-18.0); LYMPHOCYTES # (AUTO) 0.7 X10^3/uL (1.3-2.9); LYMPHOCYTES % (AUTO) 10.3 % (21.0-51.0); MEAN CORPUSCULAR HEMOGLOBIN 30.9 pg (27.0-34.0); MEAN CORPUSCULAR HGB CONC 35.9 g/dL (33.0-35.0); MEAN PLATELET VOLUME 7.2 fL (7.4-11.0); MONOCYTES # (AUTO) 0.5 x10^3/uL (0.3-0.8); MONOCYTES % (AUTO) 6.8 % (0.0-13.0); NEUTROPHILS # (AUTO) 5.4 x10^3/uL (2.2-4.8); NEUTROPHILS % (AUTO) 80.6 % (42.0-75.0); PLATELET COUNT 222 X10^3/uL (150.0-450.0); RED CELL DISTRIBUTION WIDTH 13.8 % (11.6-16.5); WHITE BLOOD COUNT 6.7 X10^3/uL (3.6-10.0)
[2023-07-23 06:50] LABS: ALANINE AMINOTRANSFERASE 39 Units/L (12-78); ALBUMIN 3.3 g/dL (3.4-5.0); ALKALINE PHOSPHATASE 71 Units/L (46-116); ASPARTATE AMINO TRANSFERASE 19 Units/L (15-37); BLOOD UREA NITROGEN 11 mg/dL (7-18); CALCIUM 8.6 mg/dL (8.5-10.1); CARBON DIOXIDE 30.4 mmol/L (21-32); CHLORIDE 104 mmol/L (98-107); COR CA(FOR HYPOALB) 9.2 mg/dL (8.5-10.1); CREATININE 0.87 mg/dL (0.70-1.30); GLUCOSE 105 mg/dL (65-99); POTASSIUM 3.2 mmol/L (3.5-5.1); SODIUM 142 mmol/L (136-145); TOTAL PROTEIN 6.3 g/dL (6.4-8.2); eGFR NON BLACK RACES > 60 (>60)
[2023-07-23] MEDS ORDERED: CONSULT PHARMACY - POTASSIUM & MAGNESIUM XX SCH (08:00)
[2023-07-23] MEDS ORDERED: POTASSIUM CHLORIDE LIQ PO ONE (08:44)
[2023-07-23] MEDS: POTASSIUM CHLORIDE LIQ PO SCH (09:14)
[2023-07-23 12:58] VITALS: BP 122/84; PULSE 76; RESP 18; O2SAT 97
--- NOTE | 2023-07-24 17:02 | PCM.PROG ---
Progress Note Progress Note for Day of Date of Exam: 07/21/23 Subjective Subjective: This is a 53-year-old male who is well-known to us from before. The patient is known to have repeated episodes of partial small bowel obstruction in the past requiring admission and conservative management. He was an ER admission on 07/18/23 after presenting with progressive abdominal pain, abdominal distention with nausea and vomiting. ER workup showed normal white count and electrolytes. CTAP showed mild bowel wall thickening. Was consulted in the ER and recommended admission. Upon admission, patient was started on IV fluids, Zosyn, pain control, and held NPO. He's had daily abdominal xray's since admission. 07/17 xray showed Intestinal gas pattern described is consistent with ileus or partial/early SBO. 07/18 xray showed As above; repeat recommended. Today's abdominal xray showed nonspecific, nonobstructive bowel gas pattern. Patient has not had a BM since admission and has been ordered for a soaps king enema, however he refused. He states that he is passing flatulence. Dr. Antoine seen patient this morning and advanced his diet to a full liquid diet. AM labs: hgb 12.2, wbc 7.0, bun 10/creatinine 0.83. Past Medical Family Social History Allergies: Allergies No Known Drug Allergies [NKDA] Allergy (Verified 07/18/23 09:28) Vital Signs and I&O's Vital Signs: Vital Signs Temperature 97.9 F Temperature 97.1 F Pulse Rate [Bilateral Brachial 75 ] Pulse Rate [Bilateral Brachial 85 ] Respiratory Rate 18 Respiratory Rate 18 Blood Pressure [Right Arm] 159/77 Blood Pressure [Right Arm] 116/59 O2 Sat by Pulse Oximetry 94 O2 Sat by Pulse Oximetry 97 Intake and Output: Intake & Output 07/19/23 07/20/23 07/21/23 07/22/23 11:59 11:59 11:59 11:59 Intake Total 50 / 50 4229 / 4229 3083 / 3083 1547 / 1547 Balance 50 / 50 4229 / 4229 3083 / 3083 1547 / 1547 Physical Exam Oriented: Normal Eyes: Normal Nose: Normal Throat: Normal Cardiovascular: Normal Auscultation: Bowel Sounds: Decreased Tenderness: Diffuse, Mild and Other (Abdomen is soft with Moderate distention and diffuse tenderness.) Skin: Normal Musculoskeletal: Normal Psychiatric: Normal Mood Description: Calm Affect: Normal Speech Pattern: Clear and Appropriate Laboratory and Diagnostics 07/23/23 06:00 07/23/23 06:00 Labs: Laboratory WBC 7.0 X10^3/uL (3.6-10.0) 07/21/23 05:42 RBC 3.93 X10^6/uL (4.7-6.0) L 07/21/23 05:42 Hgb 12.2 g/dL (13.5-18.0) L 07/21/23 05:42 Hct 35.2 % (42.0-54.0) L 07/21/23 05:42 MCV 89.5 fL (80.0-100.0) 07/21/23 05:42 MCH 31.2 pg (27.0-34.0) 07/21/23 05:42 MCHC 34.8 g/dL (33.0-35.0) 07/21/23 05:42 RDW 13.7 % (11.6-16.5) 07/21/23 05:42 Plt Count 182 X10^3/uL (150.0-450.0) 07/21/23 05:42 MPV 7.7 fL (7.4-11.0) 07/21/23 05:42 Neut % (Auto) 82.3 % (42.0-75.0) H 07/21/23 05:42 Lymph % (Auto) 10.3 % (21.0-51.0) L 07/21/23 05:42 [place] % (Auto) 6.9 % (0.0-13.0) 07/21/23 05:42 Eos % (Auto) 0.4 % (0.9-2.9) L 07/21/23 05:42 Baso % (Auto) 0.1 % (0.2-1.0) L 07/21/23 05:42 Neut # (Auto) 5.8 x10^3/uL (2.2-4.8) H 07/21/23 05:42 Lymph # (Auto) 0.7 X10^3/uL (1.3-2.9) L 07/21/23 05:42 [place] # (Auto) 0.5 x10^3/uL (0.3-0.8) 07/21/23 05:42 Eos # (Auto) 0.0 x10^3/uL (0.0-0.2) 07/21/23 05:42 Baso # (Auto) 0.0 X10^3/uL (0.0-0.1) 07/21/23 05:42 Absolute Nucleated RBC 0.1 /100WBC 07/21/23 05:42 Sodium 141 mmol/L (136-145) 07/21/23 05:42 Corrected Sodium TNP 07/21/23 05:42 Potassium 3.9 mmol/L (3.5-5.1) 07/21/23 05:42 Chloride 106 mmol/L (98-107) 07/21/23 05:42 Carbon Dioxide 29.3 mmol/L (21-32) 07/21/23 05:42 BUN 10 mg/dL (7-18) 07/21/23 05:42 Creatinine 0.83 mg/dL (0.70-1.30) 07/21/23 05:42 Est GFR (MDRD) Af Amer > 60 (>60) 07/21/23 05:42 Est GFR (MDRD) Non-Af > 60 (>60) 07/21/23 05:42 Glucose 100 mg/dL (65-99) H 07/21/23 05:42 Calcium 7.8 mg/dL (8.5-10.1) L 07/21/23 05:42 Corrected Calcium 8.4 mg/dL (8.5-10.1) L 07/21/23 05:42 Magnesium 2.1 mg/dL (2.0-2.9) 07/21/23 05:42 Total Bilirubin 1.00 mg/dL (0.2-1.0) 07/21/23 05:42 AST 39 Units/L (15-37) H 07/21/23 05:42 ALT 57 Units/L (12-78) 07/21/23 05:42 Alkaline Phosphatase 85 Units/L (46-116) 07/21/23 05:42 Total Protein 6.2 g/dL (6.4-8.2) L 07/21/23 05:42 Albumin 3.3 g/dL (3.4-5.0) L 07/21/23 05:42 Globulin 2.9 g/dL (2.5-4.5) 07/21/23 05:42 Albumin/Globulin Ratio 1.1 Ratio (1.1-2.1) 07/21/23 05:42 Amylase 20 Units/L (25-115) L 07/18/23 09:45 Lipase 19 Units/L (16-77) 07/18/23 09:45 TSH 3rd Generation 1.267 uIU/mL (0.358-3.74) 07/21/23 05:42 Specimen Type Random urine 07/18/23 17:45 Urine Color Yellow (YELLOW) 07/18/23 17:45 Urine Appearance Clear (CLEAR) 07/18/23 17:45 Urine pH 8.0 (5.0 - 8.0) 07/18/23 17:45 Ur Specific [place] 1.015 (1.000-1.030) 07/18/23 17:45 Urine Protein Negative (NEGATIVE) 07/18/23 17:45 Urine Glucose (UA) Negative (NEGATIVE) 07/18/23 17:45 Urine Ketones 2+ (NEGATIVE) 07/18/23 17:45 Urine Blood Negative (NEGATIVE) 07/18/23 17:45 Urine Nitrite Negative (NEGATIVE) 07/18/23 17:45 Urine Bilirubin Negative (NEGATIVE) 07/18/23 17:45 Urine Urobilinogen Normal (NORMAL) 07/18/23 17:45 Ur Leukocyte Esterase Negative (NEGATIVE) 07/18/23 17:45 Plan (1) Partial obstruction of small intestine: Status: Acute Plan: Follow surgery recommendations, continue pain control and full liquid status. Continue Zosyn. Replace electrolytes as per protocol. Monitor a.m. labs. (2) Intractable nausea: Status: Acute (3) Intractable abdominal pain: Status: Acute (4) Colitis: Status: Acute (5) Acute hypokalemia: Status: Acute (6) History of small bowel obstruction: Status: Chronic
--- NOTE | 2023-07-24 17:02 | PCM.DCPLAN ---
DISCHARGE SUMMARY Admission Date Date of Admission: 07/18/23 Discharge Date Discharge Date: 07/23/23 Admission Diagnoses (1) Partial obstruction of small intestine: Status: Acute (2) Intractable nausea: Status: Acute (3) Intractable abdominal pain: Status: Acute (4) Colitis: Status: Acute (5) Acute hypokalemia: Status: Acute (6) History of small bowel obstruction: Status: Chronic Discharge Medications Discharge Medications: Prescriptions: Hospital Course Latest Lab Results: Laboratory Last Values WBC 6.7 X10^3/uL (3.6-10.0) 07/23/23 06:00 RBC 4.40 X10^6/uL (4.7-6.0) L 07/23/23 06:00 Hgb 13.6 g/dL (13.5-18.0) 07/23/23 06:00 Hct 37.9 % (42.0-54.0) L 07/23/23 06:00 MCV 86.0 fL (80.0-100.0) 07/23/23 06:00 MCH 30.9 pg (27.0-34.0) 07/23/23 06:00 MCHC 35.9 g/dL (33.0-35.0) H 07/23/23 06:00 RDW 13.8 % (11.6-16.5) 07/23/23 06:00 Plt Count 222 X10^3/uL (150.0-450.0) 07/23/23 06:00 MPV 7.2 fL (7.4-11.0) L 07/23/23 06:00 Neut % (Auto) 80.6 % (42.0-75.0) H 07/23/23 06:00 Lymph % (Auto) 10.3 % (21.0-51.0) L 07/23/23 06:00 [place] % (Auto) 6.8 % (0.0-13.0) 07/23/23 06:00 Eos % (Auto) 2.0 % (0.9-2.9) 07/23/23 06:00 Baso % (Auto) 0.3 % (0.2-1.0) 07/23/23 06:00 Neut # (Auto) 5.4 x10^3/uL (2.2-4.8) H 07/23/23 06:00 Lymph # (Auto) 0.7 X10^3/uL (1.3-2.9) L 07/23/23 06:00 [place] # (Auto) 0.5 x10^3/uL (0.3-0.8) 07/23/23 06:00 Eos # (Auto) 0.1 x10^3/uL (0.0-0.2) 07/23/23 06:00 Baso # (Auto) 0.0 X10^3/uL (0.0-0.1) 07/23/23 06:00 Absolute Nucleated RBC 0.1 /100WBC 07/23/23 06:00 Sodium 142 mmol/L (136-145) 07/23/23 06:00 Corrected Sodium TNP 07/23/23 06:00 Potassium 3.2 mmol/L (3.5-5.1) L 07/23/23 06:00 Chloride 104 mmol/L (98-107) 07/23/23 06:00 Carbon Dioxide 30.4 mmol/L (21-32) 07/23/23 06:00 BUN 11 mg/dL (7-18) 07/23/23 06:00 Creatinine 0.87 mg/dL (0.70-1.30) 07/23/23 06:00 Est GFR (MDRD) Af Amer > 60 (>60) 07/23/23 06:00 Est GFR (MDRD) Non-Af > 60 (>60) 07/23/23 06:00 Glucose 105 mg/dL (65-99) H 07/23/23 06:00 Calcium 8.6 mg/dL (8.5-10.1) 07/23/23 06:00 Corrected Calcium 9.2 mg/dL (8.5-10.1) 07/23/23 06:00 Magnesium 2.0 mg/dL (2.0-2.9) 07/22/23 03:55 Total Bilirubin 1.20 mg/dL (0.2-1.0) H 07/23/23 06:00 AST 19 Units/L (15-37) 07/23/23 06:00 ALT 39 Units/L (12-78) 07/23/23 06:00 Alkaline Phosphatase 71 Units/L (46-116) 07/23/23 06:00 Troponin I High Sens 11.4 ng/L (4.0-60.0) 07/22/23 10:09 Total Protein 6.3 g/dL (6.4-8.2) L 07/23/23 06:00 Albumin 3.3 g/dL (3.4-5.0) L 07/23/23 06:00 Globulin 3.0 g/dL (2.5-4.5) 07/23/23 06:00 Albumin/Globulin Ratio 1.1 Ratio (1.1-2.1) 07/23/23 06:00 Amylase 20 Units/L (25-115) L 07/18/23 09:45 Lipase 19 Units/L (16-77) 07/18/23 09:45 TSH 3rd Generation 1.267 uIU/mL (0.358-3.74) 07/21/23 05:42 Specimen Type Random urine 07/18/23 17:45 Urine Color Yellow (YELLOW) 07/18/23 17:45 Urine Appearance Clear (CLEAR) 07/18/23 17:45 Urine pH 8.0 (5.0 - 8.0) 07/18/23 17:45 Ur Specific [place] 1.015 (1.000-1.030) 07/18/23 17:45 Urine Protein Negative (NEGATIVE) 07/18/23 17:45 Urine Glucose (UA) Negative (NEGATIVE) 07/18/23 17:45 Urine Ketones 2+ (NEGATIVE) 07/18/23 17:45 Urine Blood Negative (NEGATIVE) 07/18/23 17:45 Urine Nitrite Negative (NEGATIVE) 07/18/23 17:45 Urine Bilirubin Negative (NEGATIVE) 07/18/23 17:45 Urine Urobilinogen Normal (NORMAL) 07/18/23 17:45 Ur Leukocyte Esterase Negative (NEGATIVE) 07/18/23 17:45 Hospital Course: This is a 53-year-old male who is well-known to us from before. The patient is known to have repeated episodes of partial small bowel obstruction in the past requiring admission and conservative management. He was an ER admission on 07/18/23 after presenting with progressive abdominal pain, abdominal distention with nausea and vomiting. ER workup showed normal white count and electrolytes. CTAP showed mild bowel wall thickening. Dr. Al was consulted in the ER and recommended admission. Upon admission, patient was started on IV fluids, Zosyn, pain control, and held NPO. He's had daily abdominal xray's since admission. 07/18 xray showed Intestinal gas pattern described is consistent with ileus or partial/early SBO. 07/19 xray showed As above; repeat recommended. 07/20 abdominal xray showed nonspecific, nonobstructive bowel gas pattern. On 07/20, after not having a bm since admission, we treated with a fleet enema with effectiveness. 07/21 abdominal xray showed "Single dilated loop of small bowel present in the left midabdomen with a small amount of gas distally within the colon. Since most of the dilated small bowel loops on the CT examination of 07/18/2023 were fluid-filled they may not be detectable on plain film. Therefore continued partial small bowel obstruction can not be excluded on this examination. CT follow-up may be required." He had an episode of chest pain on the evening of 07/20, so we obtained serial cardiac enzymes and ekg- all stable. He also had a chest xray that was negative. Per Dr. Ritchie's recommendations, he is on a soft diet- tolerating well. AM labs:wbc 6.7, hgb 13.6, bun 11/creatinine 0.87. Patient reports that he is feeling much improved, so we will allow him to discharge home.
--- NOTE | 2023-07-24 17:03 | PCM.PROG ---
Progress Note Progress Note for Day of Date of Exam: 07/22/23 Subjective Subjective: This is a 53-year-old male who is well-known to us from before. The patient is known to have repeated episodes of partial small bowel obstruction in the past requiring admission and conservative management. He was an ER admission on 07/18/23 after presenting with progressive abdominal pain, abdominal distention with nausea and vomiting. ER workup showed normal white count and electrolytes. CTAP showed mild bowel wall thickening. Dr. Antoine was consulted in the ER and recommended admission. Upon admission, patient was started on IV fluids, Zosyn, pain control, and held NPO. He's had daily abdominal xray's since admission. 07/18 xray showed Intestinal gas pattern described is consistent with ileus or partial/early SBO. 07/19 xray showed As above; repeat recommended. 07/20 abdominal xray showed nonspecific, nonobstructive bowel gas pattern. On 07/20, after not having a bm since admission, we treated with a fleet enema with effectiveness. 07/21 abdominal xray showed "Single dilated loop of small bowel present in the left midabdomen with a small amount of gas distally within the colon. Since most of the dilated small bowel loops on the CT examination of 07/18/2023 were fluid-filled they may not be detectable on plain film. Therefore continued partial small bowel obstruction can not be excluded on this examination. CT follow-up may be required." He had an episode of chest pain on the evening of 07/20, so we obtained serial cardiac enzymes and ekg- all stable. He also had a chest xray that was negative. Per Dr. Ritchie's recommendations, he is on a soft diet- tolerating well. Past Medical Family Social History Allergies: Allergies No Known Drug Allergies [NKDA] Allergy (Verified 07/18/23 09:28) Review of Systems ROS: No change since H&P Vital Signs and I&O's Vital Signs: Vital Signs Temperature 98.5 F Temperature 98.9 F Pulse Rate [Bilateral Brachial 94 ] Pulse Rate [Bilateral Brachial 79 ] Respiratory Rate 18 Respiratory Rate 20 Respiratory Rate 18 Respiratory Rate 15 Blood Pressure [Left Arm] 144/83 Blood Pressure [Left Arm] 130/67 O2 Sat by Pulse Oximetry 93 O2 Sat by Pulse Oximetry 95 Intake and Output: Intake & Output 0607/21/23 07/22/23 07/23/23 11:59 11:59 11:59 11:59 Intake Total 4229 / 4229 3083 / 3083 3128 / 3128 Balance 4229 / 4229 308 / 3083 3128 / 3128 Physical Exam Oriented: Normal Eyes: Normal Nose: Normal Throat: Normal Respiratory: Diminished Cardiovascular: Normal Auscultation: Bowel Sounds: Decreased Tenderness: Diffuse, Mild and Other (Abdomen is soft with Moderate distention and diffuse tenderness.) Skin: Normal Musculoskeletal: Normal Psychiatric: Normal Mood Description: Calm Affect: Normal Speech Pattern: Clear and Appropriate Laboratory and Diagnostics 07/23/23 06:00 07/23/23 06:00 Labs: Laboratory WBC 6.8 X10^3/uL (3.6-10.0) 07/22/23 03:55 RBC 4.40 X10^6/uL (4.7-6.0) L 07/22/23 03:55 Hgb 13.4 g/dL (13.5-18.0) L 07/22/23 03:55 Hct 38.8 % (42.0-54.0) L 07/22/23 03:55 MCV 88.2 fL (80.0-100.0) 07/22/23 03:55 MCH 30.5 pg (27.0-34.0) 07/22/23 03:55 MCHC 34.5 g/dL (33.0-35.0) 07/22/23 03:55 RDW 13.5 % (11.6-16.5) 07/22/23 03:55 Plt Count 198 X10^3/uL (150.0-450.0) 07/22/23 03:55 MPV 7.5 fL (7.4-11.0) 07/22/23 03:55 Neut % (Auto) 83.8 % (42.0-75.0) H 07/22/23 03:55 Lymph % (Auto) 8.4 % (21.0-51.0) L 07/22/23 03:55 [place] % (Auto) 5.1 % (0.0-13.0) 07/22/23 03:55 Eos % (Auto) 1.6 % (0.9-2.9) 07/22/23 03:55 Baso % (Auto) 1.1 % (0.2-1.0) H 07/22/23 03:55 Neut # (Auto) 5.7 x10^3/uL (2.2-4.8) H 07/22/23 03:55 Lymph # (Auto) 0.6 X10^3/uL (1.3-2.9) L 07/22/23 03:55 [place] # (Auto) 0.3 x10^3/uL (0.3-0.8) 07/22/23 03:55 Eos # (Auto) 0.1 x10^3/uL (0.0-0.2) 07/22/23 03:55 Baso # (Auto) 0.1 X10^3/uL (0.0-0.1) 07/22/23 03:55 Absolute Nucleated RBC 0.1 /100WBC 07/22/23 03:55 Sodium 141 mmol/L (136-145) 07/22/23 03:55 Corrected Sodium TNP 07/22/23 03:55 Potassium 3.3 mmol/L (3.5-5.1) L 07/22/23 03:55 Chloride 103 mmol/L (98-107) 07/22/23 03:55 Carbon Dioxide 30.7 mmol/L (21-32) 07/22/23 03:55 BUN 7 mg/dL (7-18) 07/22/23 03:55 Creatinine 0.82 mg/dL (0.70-1.30) 07/22/23 03:55 Est GFR (MDRD) Af Amer > 60 (>60) 07/22/23 03:55 Est GFR (MDRD) Non-Af > 60 (>60) 07/22/23 03:55 Glucose 109 mg/dL (65-99) H 07/22/23 03:55 Calcium 8.2 mg/dL (8.5-10.1) L 07/22/23 03:55 Corrected Calcium 8.8 mg/dL (8.5-10.1) 07/22/23 03:55 Magnesium 2.0 mg/dL (2.0-2.9) 07/22/23 03:55 Total Bilirubin 1.50 mg/dL (0.2-1.0) H 07/22/23 03:55 AST 24 Units/L (15-37) 07/22/23 03:55 ALT 42 Units/L (12-78) 07/22/23 03:55 Alkaline Phosphatase 72 Units/L (46-116) 07/22/23 03:55 Troponin I High Sens 11.4 ng/L (4.0-60.0) 07/22/23 10:09 Total Protein 6.1 g/dL (6.4-8.2) L 07/22/23 03:55 Albumin 3.2 g/dL (3.4-5.0) L 07/22/23 03:55 Globulin 2.9 g/dL (2.5-4.5) 07/22/23 03:55 Albumin/Globulin Ratio 1.1 Ratio (1.1-2.1) 07/22/23 03:55 Amylase 20 Units/L (25-115) L 07/18/23 09:45 Lipase 19 Units/L (16-77) 07/18/23 09:45 TSH 3rd Generation 1.267 uIU/mL (0.358-3.74) 07/21/23 05:42 Specimen Type Random urine 07/18/23 17:45 Urine Color Yellow (YELLOW) 07/18/23 17:45 Urine Appearance Clear (CLEAR) 07/18/23 17:45 Urine pH 8.0 (5.0 - 8.0) 07/18/23 17:45 Ur Specific [place] 1.015 (1.000-1.030) 07/18/23 17:45 Urine Protein Negative (NEGATIVE) 07/18/23 17:45 Urine Glucose (UA) Negative (NEGATIVE) 07/18/23 17:45 Urine Ketones 2+ (NEGATIVE) 07/18/23 17:45 Urine Blood Negative (NEGATIVE) 07/18/23 17:45 Urine Nitrite Negative (NEGATIVE) 07/18/23 17:45 Urine Bilirubin Negative (NEGATIVE) 07/18/23 17:45 Urine Urobilinogen Normal (NORMAL) 07/18/23 17:45 Ur Leukocyte Esterase Negative (NEGATIVE) 07/18/23 17:45 Plan (1) Partial obstruction of small intestine: Status: Acute Plan: Follow surgery recommendations, continue pain control and soft diet. Continue Zosyn. Replace electrolytes as per protocol. Monitor a.m. labs. (2) Intractable nausea: Status: Acute (3) Intractable abdominal pain: Status: Acute (4) Colitis: Status: Acute (5) Acute hypokalemia: Status: Acute (6) History of small bowel obstruction: Status: Chronic
== END 2023-07-23 13:13 | disposition home or self-care (01) ==
LOC: ER 09:18 → MED/SURG 09:18
PROVIDERS: ADMIT Internal Medicine; ATTEND Internal Medicine
DX: E87.6 Hypokalemia; K56.690 Other partial intestinal obstruction; K52.89 Other specified noninfective gastroenteritis and colitis; K66.0 Peritoneal adhesions (postprocedural) (postinfection); R94.31 Abnormal electrocardiogram [ECG] [EKG]; R11.2 Nausea with vomiting, unspecified; I10 Essential (primary) hypertension; R10.84 Generalized abdominal pain; K21.9 Gastro-esophageal reflux disease without esophagitis; Z87.19 Personal history of other diseases of the digestive system

== ENCOUNTER 2024-07-12 12:02 | Observation (INO) ==
[2024-07-12 13:20] VITALS: BMI 38.0
[2024-07-12 13:27] LABS: EOSINOPHILS # (AUTO) 0.1 x10^3/uL (0.0-0.2); MONOCYTES # (AUTO) 0.4 x10^3/uL (0.3-0.8); WHITE BLOOD COUNT 6.5 X10^3/uL (3.6-10.0)
--- NOTE | 2024-07-12 13:28 | DR.H&P ---
H&P History & Physical for Day of: H&P Date: 07/12/24 Chief Complaint Chief Complaint: abdominal pain, abdominal swelling History of Present Illness History of Present Illness: PT IS 54 WM, DIRECT ADMIT FROM DR DEAL OFFICE WITH CO ABDOMINAL PAIN AND SWELLING SINCE FRIDAY. PT REPORTS HE HAS NOT ATE AND FEELS WEAK ALL OVER WITH CRAMPS IN ABDOMEN AND LOWER EXTREMITIES. PT HAS PMH OF ABDOMINAL ADHESIONS WITH MULTPLE BOWEL OBSTRUCTIONS. PT DENIES ANY FEVER OR RESP SYMPTOMS. PT ADMITTED FOR EVALUATION AND TREATMENT OF ACUTE ILLNESS Past Medical History Past Medical History: Anxiety, Arthritis, GERD and Hypertension Additional Medical History: SBO Past Surgical History Surgical History: Abdominal Surgery, Appendectomy, Cholecystectomy, Ortho Surgery and Other Additional Surgical History: Lysis of adhesions for SBO, Testicle removed Family History Family Medical History: Diabetes Mellitus, Cancer, [place], Coronary Artery Disease and Hypertension Social History Does patient currently use any type of tobacco product: No Type of Tobacco Use: None Alcohol Use: None Drug Use: None Medications Home Medications: Home Medications Medication Instructions Recorded Confirmed Type hydrocodone 10 mg-acetaminophen 1 tab PO Q6H PRN Pain 03/12/21 12/11/23 History 325 mg tablet metoclopramide HCl 10 mg tablet 10 mg PO Q6H PRN GERD 03/12/21 12/11/23 History amlodipine 10 mg tablet 10 mg PO DAILY 05/29/2111/12 History hydrochlorothiazide 25 mg tablet 25 mg PO DAILY 12/11/23 History losartan 100 mg tablet 100 mg PO QAM 05/29/2112/10 History aspirin 81 mg tablet,delayed 81 mg PO QDAY 01/13/23 History release meloxicam 15 mg tablet 15 mg PO DAILY 01/13/2311/12 History pantoprazole 40 mg tablet,delayed 40 mg PO DAILY 01/1312/11/23 History release potassium chloride 10 mEq 10 meq PO QDAY 12/11/2311/12 History tablet,extended release tamsulosin 0.4 mg capsule 0.4 mg PO QDAY 12/11/2311/12 History Allergies Allergies Allergy/AdvReac Type Severity Reaction Status Date / Time No Known Drug Allergies Allergy Verified 12/11/23 14:07 (NKDA) Labs 07/12/24 13:15 07/12/24 13:15 Review of Systems Constitutional: Weakness Eyes: No Symptoms Reported Respiratory: No Symptoms Reported Cardiovascular: No Symptoms Reported Gastrointestinal: Nausea, Vomiting and Abdominal Pain Genitourinary: No Symptoms Reported Musculoskeletal: Back Pain Skin: No Symptoms Reported Neurological: No Symptoms Reported Physical Exam Vital Signs: Vital Signs Temperature 97.8 F Pulse Rate [Left Brachial] 80 Respiratory Rate 20 Blood Pressure [Left Arm] 151/93 Oriented: Normal Eyes: Normal Ear: Normal Nose: Normal Throat: Dry Respiratory: RLL Diminished and LLL Diminished Cardiovascular: Normal Auscultation: Bowel Sounds: Increased Palpation: Other (DIFFUSE DISTENTION) Tenderness: Diffuse Skin: Normal Musculoskeletal: Back:Lumbar Psychiatric: Normal Mood Description: Calm Speech Pattern: Clear and Appropriate Assessment/Plan (1) Bowel obstruction: Status: Acute Plan: ADMIT, NPO ABD SERIES, IV HYDRATION PPI THERAPY, PAIN CONTROL, NAUSEA CONTROL BP CONTROL (2) Acute hypokalemia: Status: Acute (3) Hypertension: Qualifiers: Hypertension type: primary hypertension Qualified Code(s): I10 - Essential (primary) hypertension Status: Chronic (4) Hyperlipidemia: Status: Chronic
[2024-07-12 13:30] LABS: BASOPHILS # (AUTO) 0.2 X10^3/uL (0.0-0.1); BASOPHILS % (AUTO) 2.9 % (0.2-1.0); EOSINOPHILS % (AUTO) 1.1 % (0.9-2.9); HEMATOCRIT 42.1 % (42.0-54.0); LYMPHOCYTES # (AUTO) 0.8 X10^3/uL (1.3-2.9); LYMPHOCYTES % (AUTO) 12.4 % (21.0-51.0); MEAN CORPUSCULAR HEMOGLOBIN 30.5 pg (27.0-34.0); MEAN CORPUSCULAR HGB CONC 35.7 g/dL (33.0-35.0); MEAN CORPUSCULAR VOLUME 85.3 fL (80.0-100.0); MEAN PLATELET VOLUME 7.6 fL (7.4-11.0); MONOCYTES % (AUTO) 6.2 % (0.0-13.0); NEUTROPHILS % (AUTO) 77.4 % (42.0-75.0); PLATELET COUNT 213 X10^3/uL (150.0-450.0); RED BLOOD COUNT 4.94 X10^6/uL (4.7-6.0); RED CELL DISTRIBUTION WIDTH 13.4 % (11.6-16.5)
[2024-07-12 13:34] LABS: BLOOD UREA NITROGEN 9 mg/dL (7-18); CALCIUM 9.2 mg/dL (8.5-10.1); CARBON DIOXIDE 27.2 mmol/L (21-32); CHLORIDE 104 mmol/L (98-107); CREATININE 0.92 mg/dL (0.70-1.30); GLUCOSE 104 mg/dL (65-99); POTASSIUM 3.2 mmol/L (3.5-5.1); SODIUM 143 mmol/L (136-145); eGFR NON BLACK RACES > 60 (>60)
[2024-07-12 13:48] LABS: ALANINE AMINOTRANSFERASE 32 Units/L (12-78); ALKALINE PHOSPHATASE 68 Units/L (46-116); ASPARTATE AMINO TRANSFERASE 21 Units/L (15-37); TOTAL PROTEIN 6.9 g/dL (6.4-8.2)
[2024-07-12] MEDS: PROTONIX INJ 40 MG VIAL IVP SCH (14:22)
[2024-07-12] MEDS: NS 1,000 ML IV 1,000 ML IV SCH (14:22)
[2024-07-12] MEDS: BENTYL I.M. INJ 10 MG IM ONE (14:22)
[2024-07-12] MEDS: FLAGYL IV PREMIX 500 MG BAG 500 MG/100 ML BAG IV SCH (14:22)
[2024-07-12] MEDS: NORCO 10/325 TAB PO PRN (14:29)
[2024-07-12] MEDS ORDERED: CONSULT PHARMACY - POTASSIUM & MAGNESIUM XX SCH (15:00)
[2024-07-12] MEDS: K-RIDER 10 MEQ/100 ML WATER 10 MEQ/100 ML BAG IV SCH (15:43)
[2024-07-12] MEDS: LOVENOX INJ 40 MG SYR SC SCH (16:09)
[2024-07-12] MEDS: TORADOL 15 MG VIAL IVP PRN (16:12)
--- NOTE | 2024-07-12 16:21 | RAD ---
EXAM: ACUTE ABDOMEN SERI ES HISTORY: ABDOMINAL PAIN, nausea and vomiting COMPARISON: [facility] December 14, 2023 TECHNIQUE: 1 frontal view of the chest and upright and supine views of the abdomen FINDINGS: The trachea is midline. Heart size is normal. The lungs are clear and well inflated. No abdominal free air. [id number] volume of colonic stool. No sign of bowel obstruction. IMPRESSION: Nothing acute THIS IS AN ELECTRONICALLY VERIFIED FINAL REPORT 07/12/2024 4:17 PM - Electronically signed by Redd Colón MD
[2024-07-12 18:58] LABS: BILIRUBIN,URINE NEGATIVE (NEGATIVE); BLOOD/HEMOGLOBIN,URINE NEGATIVE (NEGATIVE); GLUCOSE, URINE NEGATIVE (NEGATIVE); KETONES,URINE NEGATIVE (NEGATIVE); LEUKOCYTE ESTERASE ,URINE NEGATIVE (NEGATIVE); NITRITES,URINE NEGATIVE (NEGATIVE); PROTEIN,URINE NEGATIVE (NEGATIVE); UROBILINOGEN,URINE NORMAL (NORMAL)
[2024-07-12 19:01] LABS: APPEARANCE,URINE CLEAR (CLEAR); COLOR,URINE YELLOW (YELLOW)
[2024-07-13 05:32] LABS: BASOPHILS % (AUTO) 0.5 % (0.2-1.0); EOSINOPHILS # (AUTO) 0.2 x10^3/uL (0.0-0.2); EOSINOPHILS % (AUTO) 3.6 % (0.9-2.9); HEMATOCRIT 41.8 % (42.0-54.0); HEMOGLOBIN 14.8 g/dL (13.5-18.0); LYMPHOCYTES # (AUTO) 1.3 X10^3/uL (1.3-2.9); LYMPHOCYTES % (AUTO) 31.1 % (21.0-51.0); MEAN CORPUSCULAR HEMOGLOBIN 30.2 pg (27.0-34.0); MEAN CORPUSCULAR HGB CONC 35.3 g/dL (33.0-35.0); MEAN CORPUSCULAR VOLUME 85.6 fL (80.0-100.0); MEAN PLATELET VOLUME 7.7 fL (7.4-11.0); MONOCYTES # (AUTO) 0.4 x10^3/uL (0.3-0.8); NEUTROPHILS # (AUTO) 2.4 x10^3/uL (2.2-4.8); NEUTROPHILS % (AUTO) 55.8 % (42.0-75.0); PLATELET COUNT 214 X10^3/uL (150.0-450.0); RED BLOOD COUNT 4.88 X10^6/uL (4.7-6.0); RED CELL DISTRIBUTION WIDTH 13.3 % (11.6-16.5); WHITE BLOOD COUNT 4.2 X10^3/uL (3.6-10.0)
[2024-07-13 05:45] LABS: ALANINE AMINOTRANSFERASE 30 Units/L (12-78); ALBUMIN 3.5 g/dL (3.4-5.0); ALKALINE PHOSPHATASE 61 Units/L (46-116); ASPARTATE AMINO TRANSFERASE 20 Units/L (15-37); BLOOD UREA NITROGEN 8 mg/dL (7-18); CALCIUM 8.5 mg/dL (8.5-10.1); CARBON DIOXIDE 26.1 mmol/L (21-32); CHLORIDE 104 mmol/L (98-107); CREATININE 0.84 mg/dL (0.70-1.30); GLUCOSE 100 mg/dL (65-99); POTASSIUM 3.5 mmol/L (3.5-5.1); SODIUM 139 mmol/L (136-145); TOTAL PROTEIN 6.1 g/dL (6.4-8.2); eGFR NON BLACK RACES > 60 (>60)
[2024-07-13] MEDS ORDERED: CONSULT PHARMACY - POTASSIUM & MAGNESIUM XX SCH (07:00)
[2024-07-13] MEDS: COZAAR PO SCH (08:18)
[2024-07-13] MEDS: NORVASC TAB 10 MG PO SCH (08:18)
[2024-07-13] MEDS: MILK OF MAGNESIA PO SCH (08:21)
[2024-07-13] MEDS: K-RIDER 10 MEQ/100 ML WATER 10 MEQ/100 ML BAG IV SCH (08:56)
[2024-07-13] MEDS: DULCOLAX SUPPOSITORY 10 MG RECTAL ONE (10:39)
[2024-07-13] MEDS: DULCOLAX SUPPOSITORY 10 MG ONE (10:48)
[2024-07-13 12:51] VITALS: BP 139/75; PULSE 70; RESP 19; TEMP 97.9; O2SAT 98
[2024-07-13] MEDS ORDERED: COLACE CAP 100 MG PO SCH (21:00)
== END 2024-07-13 12:35 | disposition home or self-care (01) ==
LOC: MED/SURG
PROVIDERS: ADMIT Internal Medicine; ATTEND Internal Medicine
DX: E78.5 Hyperlipidemia, unspecified; F41.8 Other specified anxiety disorders; K21.9 Gastro-esophageal reflux disease without esophagitis; R11.2 Nausea with vomiting, unspecified; R10.84 Generalized abdominal pain; E87.6 Hypokalemia; K56.690 Other partial intestinal obstruction; I10 Essential (primary) hypertension; R53.1 Weakness

== ENCOUNTER 2024-09-01 14:21 | Observation (INO) ==
[2024-09-01 17:22] VITALS: BMI 37.9
[2024-09-01] MEDS: NS 1,000 ML IV 1,000 ML IV SCH (17:32)
--- NOTE | 2024-09-01 17:47 | DR.H&P ---
H&P History & Physical for Day of: H&P Date: 09/01/24 Chief Complaint Chief Complaint: swelling to stomach, thighs and lower legs, sob, muscle cramps History of Present Illness History of Present Illness: PT IS 54 WM, DIRECT ADMIT FROM DR SAY YOUNGBLOOD OFFICE WITH DIFFUSE ABDOMINAL SWELLING AND PITTING EDEMA TO LOWER EXTREMITIES. PT HAS BEEN TAKING WATER PILL DAILY WITHOUT IMPROVEMENT. PT CO SOB AND MUSCLE CRAMPS TO ABDOMEN AND LEGS. PT HAS HX OF SBO AND STATES IT FEELS DIFFERENT, NO FEVER OR FLU LIKE SYMPTOMS AND NORMAL BM WITHOUT BLOOD OR MUCOUS IN STOOL. PT CO DECREASED URINARY OUTPT. Past Medical History Past Medical History: Anxiety, Arthritis, GERD and Hypertension Additional Medical History: SBO Past Surgical History Surgical History: Abdominal Surgery, Appendectomy, Cholecystectomy, Ortho Surgery and Other Additional Surgical History: Lysis of adhesions for SBO, Testicle removed Family History Family Medical History: Diabetes Mellitus, Cancer, [place], Coronary Artery Disease and Hypertension Social History Does patient currently use any type of tobacco product: No Type of Tobacco Use: None Does any household member use tobacco: No Alcohol Use: None Drug Use: None Medications Home Medications: Home Medications Medication Instructions Recorded Confirmed Type hydrocodone 10 mg-acetaminophen 1 tab PO Q6H PRN Pain 03/12/21 09/01/24 History 325 mg tablet metoclopramide HCl 10 mg tablet 10 mg PO Q6H PRN GERD 03/12/21 09/01/24 History amlodipine 10 mg tablet 10 mg PO DAILY 05/29/2108/11 History hydrochlorothiazide 25 mg tablet 25 mg PO DAILY 09/01/24 History losartan 100 mg tablet 100 mg PO QAM 05/29/2109/01 History meloxicam 15 mg tablet 15 mg PO DAILY 01/13/2308/11 History pantoprazole 40 mg tablet,delayed 40 mg PO DAILY 01/1309/01/24 History release tamsulosin 0.4 mg capsule 0.4 mg PO QDAY 12/11/2308/11 History dicyclomine 10 mg capsule 10 mg PO QID PRN 09/01/24 History tadalafil 20 mg tablet 20 mg PO QDAY PRN 09/01/24 0 09/01/24 History Allergies Allergies Allergy/AdvReac Type Severity Reaction Status Date / Time No Known Drug Allergies Allergy Verified 12/11/23 14:07 (NKDA) Review of Systems Constitutional: denies Fever Eyes: No Symptoms Reported ENT: No Symptoms Reported Respiratory: Shortness of Breath Cardiovascular: Edema Gastrointestinal: Nausea and Abdominal Pain Genitourinary: Retention Musculoskeletal: Back Pain and Leg Pain Skin: No Symptoms Reported Neurological: No Symptoms Reported Oriented: Normal Eyes: Normal Ear: Normal Nose: Normal Throat: Normal Respiratory: RLL Diminished and LLL Diminished Cardiovascular: Edema Auscultation: Bowel Sounds: Normal Palpation: Liver Enlarged and Other (DIFFUSE DISTENTION) Tenderness: Diffuse Skin: Normal Musculoskeletal: Leg, Back:Lumbar, Swelling and Tender Psychiatric: Anxiety Affect: Anxious Speech Pattern: Clear and Appropriate Assessment/Plan (1) Abdominal ascites: Status: Acute Plan: ADMIT, AMMONIA FLP, CBC CMP HEP PANEL ABDOMINAL US, STRICT I&OS POTASSIUM REPLACEMENT, BP CONTROL FLOMAX BID WITH UA ON ADMISSION PRN PAIN CONTROL, STOOL STUDIES (2) Acute hypokalemia: Status: Acute (3) Hypertension: Qualifiers: Hypertension type: primary hypertension Qualified Code(s): I10 - Essential (primary) hypertension Status: Chronic (4) RIVERA (dyspnea on exertion): Status: Acute (5) Hepatomegaly: Status: Acute (6) GERD (gastroesophageal reflux disease): Status: Chronic (7) Abdominal pain: Status: Acute (8) Urinary retention: Status: Acute
[2024-09-01] MEDS: PROTONIX INJ 40 MG VIAL IVP SCH (17:56)
[2024-09-01] MEDS ORDERED: FLOMAX PO SCH (18:00)
[2024-09-01 18:06] LABS: MEAN PLATELET VOLUME 7.5 fL (7.4-11.0); RED CELL DISTRIBUTION WIDTH 13.6 % (11.6-16.5)
[2024-09-01 18:17] LABS: CREATININE 1.11 mg/dL (0.70-1.30); eGFR NON BLACK RACES > 60 (>60)
[2024-09-01] MEDS ORDERED: CONSULT PHARMACY - POTASSIUM & MAGNESIUM XX SCH (19:00)
[2024-09-01 19:07] LABS: RETICULOCYTE % 1.93 % (0.8-2.2)
[2024-09-01] MEDS: NORCO 10/325 TAB PO PRN (19:38)
[2024-09-01 20:17] LABS: BLOOD/HEMOGLOBIN,URINE NEGATIVE (NEGATIVE); LEUKOCYTE ESTERASE ,URINE NEGATIVE (NEGATIVE); NITRITES,URINE NEGATIVE (NEGATIVE)
[2024-09-01 20:39] LABS: APPEARANCE,URINE CLEAR (CLEAR)
[2024-09-01 20:52] LABS: CRYPTOSPORIDIUM PARVUM ANTIGEN NEGATIVE (NEGATIVE); GIARDIA LAMBLIA ANTIGEN NEGATIVE (NEGATIVE)
[2024-09-01] MEDS: FLOMAX PO SCH (21:00)
[2024-09-01] MEDS ORDERED: POTASSIUM CHLORIDE INJ 40 MEQ VIAL 40 MEQ, POTASSIUM CHLORIDE INJ 20 MEQ VIAL 20 MEQ in... IV ONE (21:00)
[2024-09-01] MEDS: K-RIDER 10 MEQ/100 ML WATER 10 MEQ/100 ML BAG IV SCH (21:00)
--- NOTE | 2024-09-02 05:55 | RAD ---
EXAM: ACUTE ABDOMEN SERI ES HISTORY: abdominal distention; COMPARISON: 07/12/2024 FINDINGS: The cardiomediastinal silhouette is normal in size. No acute airspace disease. No pneumothorax or effusion.No acute osseous abnormality in the thorax. Evaluation of the abdomen demonstrates a nonobstructive bowel gas pattern. no evidence of pneumoperitoneum. No pathologic soft tissue calcification. No acute osseous abnormality in the abdomen. IMPRESSION: 1. No acute cardiopulmonary process. 2. No acute abdominal process. THIS IS AN ELECTRONICALLY VERIFIED FINAL REPORT 09/02/2024 5:43 AM - Electronically signed by Aydin Benítez MD
[2024-09-02 06:20] LABS: MEAN PLATELET VOLUME 7.7 fL (7.4-11.0); RED CELL DISTRIBUTION WIDTH 13.8 % (11.6-16.5)
[2024-09-02 06:35] LABS: CHOL/HDL RATIO 5.3 (0.0-5.0); COR NA(FOR HYPERGLY) 140 mmol/L (136-145); CREATININE 1.04 mg/dL (0.70-1.30); eGFR NON BLACK RACES > 60 (>60)
[2024-09-02] MEDS: NS 250 ML IV 0 ML IV ONE (07:04)
[2024-09-02] MEDS: FLAGYL TAB 500 MG PO SCH (08:56)
[2024-09-02] MEDS: COZAAR PO SCH (09:46)
[2024-09-02] MEDS: NS + KCL 20 MEQ/L 1,000 ML IV SCH (09:53)
[2024-09-02] MEDS: DILAUDID INJ IVP PRN (09:53)
[2024-09-02] MEDS: VITAMIN B-12 INJ IM ONE (09:54)
[2024-09-02] MEDS: ZOFRAN INJ 4 MG VIAL IVP PRN (12:27)
--- NOTE | 2024-09-02 13:02 | US ---
EXAM: Ultrasound abdomen, complete HISTORY: Abdominal distention, ascites TECHNIQUE: Multiple grayscale sonographic images were obtained. COMPARISON: None FINDINGS: Liver is normal in size and configuration and without cyst, mass, or biliary ductal dilatation. The echogenicity of the hepatic parenchyma is increased suggestive of fatty infiltration. Portal venous blood flow was hepatopetal. Hepatic artery was patent. Hepatic venous blood flow was hepatofugal. Patient is status post cholecystectomy. Common duct measured 3.4 mm. Spleen was normal in size and without focal abnormality. Pancreas and abdominal aorta obscured by overlying bowel gas. Right kidney measured 12.4 cm in length. Left kidney measured 13.5 cm in length. Cortical thickness and cortical echogenicity normal bilaterally. No solid masses, hydro nephrosis, stones, or perinephric fluid collections identified. IMPRESSION: Diffuse fatty infiltration of the liver Post cholecystectomy, normal common bile duct size Sonographically normal kidneys and spleen Abdominal aorta and pancreas obscured by overlying bowel gas No evidence for ascites THIS IS AN ELECTRONICALLY VERIFIED FINAL REPORT 09/02/2024 12:59 PM - Electronically signed by Aydin Benítez MD
[2024-09-02] MEDS: MILK OF MAGNESIA PO SCH (20:44)
[2024-09-02 21:14] VITALS: O2SAT 94
[2024-09-03 06:21] LABS: MEAN PLATELET VOLUME 7.7 fL (7.4-11.0); RED CELL DISTRIBUTION WIDTH 13.7 % (11.6-16.5)
[2024-09-03 06:30] LABS: COR NA(FOR HYPERGLY) 141 mmol/L (136-145); CREATININE 0.91 mg/dL (0.70-1.30); eGFR NON BLACK RACES > 60 (>60)
[2024-09-03] MEDS ORDERED: CONSULT PHARMACY - POTASSIUM & MAGNESIUM XX SCH (08:00)
[2024-09-03] MEDS: NS + KCL 40 MEQ/L 1,000 ML IV SCH (08:28)
[2024-09-03] MEDS: NS 500 ML IV 500 ML with POTASSIUM CHLORIDE INJ 40 MEQ VIAL 60 MEQ IV ONE (10:01)
--- NOTE | 2024-09-03 14:34 | RAD ---
EXAMINATION: KUB HISTORY: Vomiting/Diarrhea; . COMPARISON STUDY: None. TECHNIQUE: 2 supine AP views of the abdomen and pelvis FINDINGS: Details are limited by patient body habitus, imaging technique. Minimal gaseous distention of the small and large bowel. Surgical clips right upper abdomen. Gentle curvature lumbar spine convexity toward the left. Bone details are limited. Pulmonary bases are clear. IMPRESSION: Normal bowel-gas pattern for the supine view. THIS IS AN ELECTRONICALLY VERIFIED FINAL REPORT 09/03/2024 2:31 PM - Electronically signed by Elizabeth Bautista MD
[2024-09-03 15:05] VITALS: BP 112/54; PULSE 79; RESP 20; TEMP 98.3
== END 2024-09-03 16:22 | disposition home or self-care (01) ==
LOC: MED/SURG
PROVIDERS: ADMIT Internal Medicine; ATTEND Internal Medicine
DX: R16.2 Hepatomegaly with splenomegaly, not elsewhere classified; M51.369 Other intervertebral disc degeneration, lumbar region without mention of lumbar back pain or lower extremity pain; E87.6 Hypokalemia; M19.90 Unspecified osteoarthritis, unspecified site; F41.8 Other specified anxiety disorders; R06.02 Shortness of breath; K92.1 Melena; I10 Essential (primary) hypertension; R73.09 Other abnormal glucose; R10.84 Generalized abdominal pain; R74.01 Elevation of levels of liver transaminase levels; R19.7 Diarrhea, unspecified; K52.89 Other specified noninfective gastroenteritis and colitis; Z87.19 Personal history of other diseases of the digestive system; R14.0 Abdominal distension (gaseous); E83.51 Hypocalcemia; E80.6 Other disorders of bilirubin metabolism; R18.8 Other ascites; R25.2 Cramp and spasm; K21.9 Gastro-esophageal reflux disease without esophagitis

== ENCOUNTER 2024-10-12 13:26 | Observation (INO) ==
--- NOTE | 2024-10-12 14:29 | DR.H&P ---
H&P History & Physical for Day of: H&P Date: 10/12/24 Chief Complaint Chief Complaint: ABDOMINAL PAIN, N/V History of Present Illness History of Present Illness: PT IS 54 WM, DIRECT ADMIT FROM DR DEAL OFFICE WITH ABDOMINAL PAIN, DISTENTION WITH SEVERE CRAMPS. PT CO N/V, NO DIARRHEA. PT HAS PMH OF RE-OCCURRING SBO. PT REPORT HE TOOK [facility] [employer], HAD TORADOL 60MG IM IN HE OFFICE. PT WAS SENT FOR OUTPT LABS AND ABD SERIES [employer], RESULTS ARE NOT AVAILABLE ON ADMISSION. PT HAS PMH OF GERD, HTN, OA, LSPINE DDD AND NEUROPATHY. Past Medical History Past Medical History: Anxiety, Arthritis, GERD and Hypertension Additional Medical History: SBO Past Surgical History Surgical History: Abdominal Surgery, Appendectomy, Cholecystectomy, Ortho Surgery and Other Additional Surgical History: Lysis of adhesions for SBO, Testicle removed Family History Family Medical History: Diabetes Mellitus, Cancer, [place], Coronary Artery Disease and Hypertension Medications Home Medications: Home Medications Medication Instructions Recorded Confirmed Type hydrocodone 10 mg-acetaminophen 1 tab PO Q6H PRN Pain 03/12/21 09/01/24 History 325 mg tablet metoclopramide HCl 10 mg tablet 10 mg PO Q6H PRN GERD 03/12/21 09/01/24 History hydrochlorothiazide 25 mg tablet 25 mg PO DAILY 09/01/24 History losartan 100 mg tablet 100 mg PO QAM 05/29/2109/01 History meloxicam 15 mg tablet 15 mg PO DAILY 01/13/2308/11 History pantoprazole 40 mg tablet,delayed 40 mg PO DAILY 01/1309/01/24 History release tamsulosin 0.4 mg capsule 0.4 mg PO QDAY 12/11/2308/11 History dicyclomine 10 mg capsule 10 mg PO QID PRN 09/01/24 History tadalafil 20 mg tablet 20 mg PO QDAY PRN 09/01/24 0 09/01/24 History Allergies Allergies Allergy/AdvReac Type Severity Reaction Status Date / Time No Known Drug Allergies Allergy Verified 12/11/23 14:07 (NKDA) Review of Systems Constitutional: Weakness Eyes: No Symptoms Reported and Vision Change Respiratory: No Symptoms Reported Cardiovascular: No Symptoms Reported Gastrointestinal: Nausea and Abdominal Pain Genitourinary: No Symptoms Reported Musculoskeletal: Back Pain Skin: No Symptoms Reported Neurological: No Symptoms Reported Oriented: Normal Eyes: Normal Nose: Normal Throat: Normal Respiratory: RLL Diminished and LLL Diminished Cardiovascular: Normal Auscultation: Bowel Sounds: Decreased Tenderness: Diffuse Skin: Decreased Turgur Musculoskeletal: Back:Lumbar Psychiatric: Anxiety Mood Description: Calm Speech Pattern: Clear and Appropriate Assessment/Plan (1) Partial obstruction of small intestine: Status: Acute Plan: ADMIT, NPO IV FLUIDS, POTASSIUM REPLACEMENT PAIN CONTROL, ADMISSION LABS ABD SERIES ON ADMISSION (2) Hypomagnesemia: Status: Acute (3) Hypertension: Qualifiers: Hypertension type: primary hypertension Qualified Code(s): I10 - Ess ential (primary) hypertension Status: Chronic (4) Hypokalemia: Status: Acute
[2024-10-12 14:56] LABS: MEAN PLATELET VOLUME 7.7 fL (7.4-11.0); RED CELL DISTRIBUTION WIDTH 14.3 % (11.6-16.5)
[2024-10-12 15:01] VITALS: BMI 38.0
[2024-10-12] MEDS: ZOFRAN INJ 4 MG VIAL IVP PRN (15:03)
[2024-10-12] MEDS: NS 1,000 ML IV 1,000 ML IV SCH (15:03)
[2024-10-12 15:11] LABS: CREATININE 1.21 mg/dL (0.70-1.30); eGFR NON BLACK RACES > 60 (>60)
[2024-10-12] MEDS ORDERED: CONSULT PHARMACY - POTASSIUM & MAGNESIUM XX SCH (16:00)
[2024-10-12] MEDS: MORPHINE SULFATE INJ 2 MG INJ IVP PRN (16:40)
[2024-10-12] MEDS: NS + KCL 20 MEQ/L 1,000 ML IV SCH (16:41)
[2024-10-12] MEDS: CONSULT PHARMACY - POTASSIUM & MAGNESIUM XX SCH (17:54)
[2024-10-12] MEDS ORDERED: K-RIDER 10 MEQ/100 ML WATER 10 MEQ/100 ML BAG IV SCH (18:00)
[2024-10-12] MEDS: DILAUDID INJ IVP PRN (19:16)
[2024-10-12] MEDS: PROTONIX INJ 40 MG VIAL IVP SCH (20:25)
--- NOTE | 2024-10-12 21:30 | RAD ---
EXAM: ABDOMEN X-RAY SERIES WITH CXR HISTORY: Abdominal pain. TECHNIQUE: Supine and erect views of the abdomen; frontal single view CXR COMPARISON: None. FINDINGS: ABDOMEN: Status post cholecystectomy. Elongation of the right lobe of the liver (up to 21.6 cm CC) in keeping with hepatomegaly versus Tatianna's lobe (anatomical variant). The bowel gas pattern is nonspecific and nonobstructive. There is no gross free intraperitoneal air, or suspicious calcifications seen. The visualized bony structures are within normal limits. CHEST: The heart size and mediastinum are within normal limits. The lung whitfield and costophrenic angles are clear. There is no acute parenchymal infiltrate, pleural effusion, or pneumothorax seen. The visualized bony structures are within normal limits. IMPRESSION: 1. Mildly dilated air-filled small and large bowel loops within the abdomen and pelvis in keeping with ileus in the appropriate clinical setting; cannot rule out sequela of gastroenteritis. 2. No gross organomegaly, free intraperitoneal air, or suspicious calcifications seen. 2. Status post cholecystectomy. 3. Elongation of the right lobe of the liver (up to 21.6 cm CC) in keeping with hepatomegaly versus Tatianna's lobe (anatomical variant). 4. No evidence for acute cardiopulmonary disease seen. 5. Consider follow evaluation with CT for further assessment as clinically warranted. THIS IS AN ELECTRONICALLY VERIFIED FINAL REPORT 10/12/2024 9:27 PM - Electronically signed by Saray Evans MD
[2024-10-13 04:48] LABS: MEAN PLATELET VOLUME 8.0 fL (7.4-11.0); RED CELL DISTRIBUTION WIDTH 14.3 % (11.6-16.5)
[2024-10-13 04:59] LABS: COR NA(FOR HYPERGLY) 143 mmol/L (136-145); CREATININE 0.94 mg/dL (0.70-1.30); eGFR NON BLACK RACES > 60 (>60)
[2024-10-13] MEDS ORDERED: CONSULT PHARMACY - POTASSIUM & MAGNESIUM XX SCH (07:00)
[2024-10-13] MEDS: K-DUR TAB 20 MEQ PO SCH (08:28)
[2024-10-13] MEDS: BENADRYL INJ 50 MG VIAL IVP ONE (08:29)
[2024-10-13] MEDS: BENTYL I.M. INJ 10 MG IM SCH (09:12)
--- NOTE | 2024-10-13 12:02 | CT ---
EXAM: ABDCMEN/PELVIS WITH CON HISTORY: small bowel obstruction ; COMPARISON: 12/11/2023 TECHNIQUE: CT of the abdomen and pelvis obtained with IV contrast. Dose reduction techniques including Automated Exposure Control (AEC) and adjustment of mA and kV were utilized. FINDINGS: The visualized portions of the lower thorax demonstrate no acute process. Reflux in the distal esophagus. No acute osseous abnormality. Multilevel degenerative changes in the visualized spine. The liver, spleen, pancreas, bilateral adrenal glands, and bilateral kidneys demonstrate no acute process. Prior cholecystectomy. No evidence of bowel obstruction. The appendix is surgically absent. Diverticulosis without evidence of diverticulitis. The bladder is decompressed and thickened. No free air or fluid. Nonaneurysmal aorta. IMPRESSION: Possible circumferential bladder wall thickening which could be seen with cystitis. Recommend correlation with urinalysis. No evidence of small-bowel obstruction. THIS IS AN ELECTRONICALLY VERIFIED FINAL REPORT 10/13/2024 11:59 AM - Electronically signed by Aydin Benítez MD
--- NOTE | 2024-10-13 17:56 | PCM.PROG ---
Progress Note Progress Note for Day of Date of Exam: 10/13/24 Subjective Subjective: PT IS 54 WM, DIRECT ADMIT FROM DR ALEJO OFFICE WITH CO DIFFUSE ABDOMINAL PAIN AND DISTENTION WITH N/V AND CRAMPS. PT HAS PMH OF SBO. PT WAS HYPOKALEMIC ON ADMISSION AND IS CURRENTLY ON POTASSIUM REPLACEMENT THERAPY. PT HAS BEEN NPO SINCE ADMISSION WITH ABNORMAL ABD XRAY RESULTS. CT OF ABD PELVIS ORDERED FOR THIS AM. PT k 3.0 THIS AM. Past Medical Family Social History Allergies: Allergies No Known Drug Allergies (NKDA) Allergy (Verified 12/11/23 14:07) Vital Signs and I&O's Vital Signs: Vital Signs Temperature 98.2 F Temperature 98.1 F Pulse Rate [Right Radial] 70 Pulse Rate [Right Radial] 82 Respiratory Rate 20 Respiratory Rate 20 Respiratory Rate 20 Respiratory Rate 20 Blood Pressure [Right Arm] 133/63 Blood Pressure [Right Arm] 138/76 O2 Sat by Pulse Oximetry 93 O2 Sat by Pulse Oximetry 97 Intake and Output: Intake & Output 10/11/24 10/12/24 10/13/24 10/14/24 11:59 11:59 11:59 11:59 Intake Total 742 / 742 450 / 450 Balance 742 / 742 450 / 450 Physical Exam Oriented: Normal Eyes: Normal Nose: Normal Throat: Normal Respiratory: Diminished Cardiovascular: Normal Auscultation: Bowel Sounds: Decreased Palpation: Liver Enlarged and Other Tenderness: Diffuse Skin: Decreased Turgur Musculoskeletal: Back:Lumbar Psychiatric: Anxiety Mood Description: Calm Speech Pattern: Clear and Appropriate Laboratory and Diagnostics 10/13/24 04:06 10/13/24 04:06 Labs: Laboratory WBC 5.6 X10^3/uL (3.6-10.0) 10/13/24 04:06 RBC 4.67 X10^6/uL (4.7-6.0) L 10/13/24 04:06 Hgb 14.2 g/dL (13.5-18.0) 10/13/24 04:06 Hct 39.7 % (42.0-54.0) L 10/13/24 04:06 MCV 85.1 fL (80.0-100.0) 10/13/24 04:06 MCH 30.4 pg (27.0-34.0) 10/13/24 04:06 MCHC 35.7 g/dL (33.0-35.0) H 10/13/24 04:06 RDW 14.3 % (11.6-16.5) 10/13/24 04:06 Plt Count 204 X10^3/uL (150.0-450.0) 10/13/24 04:06 MPV 8.0 fL (7.4-11.0) 10/13/24 04:06 Neut % (Auto) 67.9 % (42.0-75.0) 10/13/24 04:06 Lymph % (Auto) 20.6 % (21.0-51.0) L 10/13/24 04:06 Moody % (Auto) 8.7 % (0.0-13.0) 10/13/24 04:06 Eos % (Auto) 2.4 % (0.9-2.9) 10/13/24 04:06 Baso % (Auto) 0.4 % (0.2-1.0) 10/13/24 04:06 Neut # (Auto) 3.8 x10^3/uL (2.2-4.8) 10/13/24 04:06 Lymph # (Auto) 1.2 X10^3/uL (1.3-2.9) L 10/13/24 04:06 Moody # (Auto) 0.5 x10^3/uL (0.3-0.8) 10/13/24 04:06 Eos # (Auto) 0.1 x10^3/uL (0.0-0.2) 10/13/24 04:06 Baso # (Auto) 0.0 X10^3/uL (0.0-0.1) 10/13/24 04:06 Absolute Nucleated RBC 0.2 /100WBC 10/13/24 04:06 Sodium 143 mmol/L (136-145) 10/13/24 04:06 Corrected Sodium 143 mmol/L (136-145) 10/13/24 04:06 Potassium 3.1 mmol/L (3.5-5.1) L 10/13/24 04:06 Chloride 106 mmol/L (98-107) 10/13/24 04:06 Carbon Dioxide 32.7 mmol/L (21-32) H 10/13/24 04:06 BUN 19 mg/dL (7-18) H 10/13/24 04:06 Creatinine 0.94 mg/dL (0.70-1.30) 10/13/24 04:06 Est GFR (MDRD) Af Amer > 60 (>60) 10/13/24 04:06 Est GFR (MDRD) Non-Af > 60 (>60) 10/13/24 04:06 Glucose 112 mg/dL (65-99) H 10/13/24 04:06 Calcium 8.0 mg/dL (8.5-10.1) L 10/13/24 04:06 Corrected Calcium TNP 10/13/24 04:06 Magnesium 2.0 mg/dL (2.0-2.9) 10/12/24 14:47 Total Bilirubin 1.10 mg/dL (0.2-1.0) H 10/13/24 04:06 AST 40 Units/L (15-37) H 10/13/24 04:06 ALT 52 Units/L (12-78) 10/13/24 04:06 Alkaline Phosphatase 75 Units/L (46-116) 10/13/24 04:06 Total Protein 6.2 g/dL (6.4-8.2) L 10/13/24 04:06 Albumin 3.6 g/dL (3.4-5.0) 10/13/24 04:06 Globulin 2.6 g/dL (2.5-4.5) 10/13/24 04:06 Albumin/Globulin Ratio 1.4 Ratio (1.1-2.1) 10/13/24 04:06 Plan (1) Partial obstruction of small intestine: Status: Acute Plan: IV HYDRATION, PAIN CONTROL POTASSIUM REPLACEMENT, BP CONTROL CT ABD PELVIS, PPI THERAPY (2) Hypomagnesemia: Status: Acute (3) Hypertension: Status: Chronic Qualifiers: Hypertension type: primary hypertension Qualified Code(s): I10 - Essential (primary) hypertension (4) Hypokalemia: Status: Acute
[2024-10-13 18:29] LABS: BLOOD/HEMOGLOBIN,URINE NEGATIVE (NEGATIVE); LEUKOCYTE ESTERASE ,URINE NEGATIVE (NEGATIVE); NITRITES,URINE NEGATIVE (NEGATIVE)
[2024-10-13 18:37] LABS: APPEARANCE,URINE CLEAR (CLEAR); SQUAMOUS EPITHELIAL CELL,UR RARE /HPF (NEGATIVE)
[2024-10-14 04:59] LABS: MEAN PLATELET VOLUME 8.0 fL (7.4-11.0); RED CELL DISTRIBUTION WIDTH 13.8 % (11.6-16.5)
[2024-10-14 05:08] LABS: CREATININE 0.79 mg/dL (0.70-1.30); eGFR NON BLACK RACES > 60 (>60)
[2024-10-14] MEDS ORDERED: CONSULT PHARMACY - POTASSIUM & MAGNESIUM XX SCH (07:00)
[2024-10-14] MEDS: OMNIPAQUE 350 mg/mL 100 mL BTL 100 ML ONE (07:52)
[2024-10-14] MEDS: READI-CAT 2 ONE (07:52)
[2024-10-14] MEDS ORDERED: FLOMAX PO PRN (08:14)
[2024-10-14] MEDS ORDERED: NORCO 10/325 TAB PO PRN (08:14)
[2024-10-14] MEDS: NS + KCL 20 MEQ/L 1,000 ML IV SCH (08:29)
[2024-10-14] MEDS: COZAAR PO SCH (08:30)
[2024-10-14] MEDS: K-DUR TAB 20 MEQ PO SCH (08:30)
[2024-10-14] MEDS: CIPRO IV 400 MG PREMIX* 400 MG/200 ML IV.SOLN. IV SCH (08:30)
[2024-10-14] MEDS: CARAFATE ORAL SUSP PO SCH (12:16)
[2024-10-14] MEDS: DULCOLAX SUPPOSITORY 10 MG RECTAL ONE (12:40)
[2024-10-14 16:36] VITALS: BP 151/74; PULSE 63; RESP 19; TEMP 98.6; O2SAT 95
== END 2024-10-14 16:50 | disposition home or self-care (01) ==
LOC: MED/SURG
PROVIDERS: ADMIT Internal Medicine; ATTEND Internal Medicine
DX: M51.369 Other intervertebral disc degeneration, lumbar region without mention of lumbar back pain or lower extremity pain; R74.01 Elevation of levels of liver transaminase levels; F41.8 Other specified anxiety disorders; R53.1 Weakness; E83.42 Hypomagnesemia; E87.6 Hypokalemia; K21.9 Gastro-esophageal reflux disease without esophagitis; K56.690 Other partial intestinal obstruction; I10 Essential (primary) hypertension; R11.2 Nausea with vomiting, unspecified; E80.6 Other disorders of bilirubin metabolism; R10.84 Generalized abdominal pain

== ENCOUNTER 2024-12-20 17:01 | Observation (INO) ==
[2024-12-20] MEDS ORDERED: NORCO 10/325 TAB PO PRN (17:21)
--- NOTE | 2024-12-20 17:30 | DR.H&P ---
H&P History & Physical for Day of: H&P Date: 12/20/24 Chief Complaint Chief Complaint: ABDOMINAL PAIN, SWELLING AND VOMITING History of Present Illness History of Present Illness: PT IS 54 WM, DIRECT ADMIT FROM OUR OFFICE WITH CO ABDOMINAL PAIN AND DIFFUSE DISTENTION ON FRIDAY AND WORSENED WITH ONSET OF VOMITING. PT HAS HX OF RECURRING OBSTRUCTIONS DUE TO EXTENSIVE ABDOMINAL ADHESIONS. PT REPORTS SMALL BM ON FRIDAY. PT IS SET UP FOR OUTPT EGD WITH DR RENTERIA ON FRIDAY. PT HAD ACTIVE VOMITING IN THE OFFICE AND WAS GIVEN ZOFRAN 4MG IM AND TORADOL 60MG IM. Past Medical History Past Medical History: Anxiety, Arthritis, GERD and Hypertension Additional Medical History: SBO Past Surgical History Surgical History: Abdominal Surgery, Appendectomy, Cholecystectomy, Ortho Surgery and Other Additional Surgical History: Lysis of adhesions for SBO, Testicle removed Family History Family Medical History: Diabetes Mellitus, Cancer, [place], Coronary Artery Disease and Hypertension Medications Home Medications: Home Medications Medication Instructions Recorded Confirmed Type hydrocodone 10 mg-acetaminophen 1 tab PO Q6H PRN Pain 03/12/21 10/12/24 History 325 mg tablet metoclopramide HCl 10 mg tablet 10 mg PO Q6H PRN GERD 03/12/21 10/12/24 History hydrochlorothiazide 25 mg tablet 25 mg PO DAILY 10/12/24 History losartan 100 mg tablet 100 mg PO QAM 05/29/2110/12 History meloxicam 15 mg tablet 15 mg PO DAILY 01/13/2304/06 History pantoprazole 40 mg tablet,delayed 40 mg PO DAILY 01/1310/12/24 History release tamsulosin 0.4 mg capsule 0.4 mg PO PRN PRN swelling 1 10/12/24 History dicyclomine 10 mg capsule 10 mg PO QID PRN 09/01/24 History tadalafil 20 mg tablet 20 mg PO QDAY PRN 09/01/24 0 10/12/24 History Allergies Allergies Allergy/AdvReac Type Severity Reaction Status Date / Time No Known Drug Allergies Allergy Verified 12/11/23 14:07 (NKDA) Review of Systems Constitutional: Weakness Eyes: No Symptoms Reported ENT: No Symptoms Reported Respiratory: Shortness of Breath Cardiovascular: No Symptoms Reported and Edema Gastrointestinal: Nausea, Vomiting and Abdominal Pain Genitourinary: No Symptoms Reported Musculoskeletal: Back Pain Skin: No Symptoms Reported Neurological: No Symptoms Reported Oriented: Normal Eyes: Normal Ear: Normal Nose: Normal Throat: Dry Respiratory: Diminished Throughout Cardiovascular: Edema Auscultation: Bowel Sounds: Decreased Palpation: Other (DIFFUSE DISTENTION) Tenderness: Diffuse Skin: Diaphoresis Musculoskeletal: Back:Lumbar Psychiatric: Anxiety Mood Description: Anxious Affect: Normal Speech Pattern: Clear and Appropriate Assessment/Plan (1) SBO (small bowel obstruction): Status: Acute Plan: ADMIT, NPO, IV HYDRATION ABDOMEN SERIES ON ADMISSION PAIN AND NAUSEA CONTROL ELECTROLYTE REPLACEMENT BP CONTROL, BID PROTONIX (2) Intractable nausea: Status: Acute (3) Acute hypokalemia: Status: Acute (4) Hypertension: Qualifiers: Hypertension type: primary hypertension Qualified Code(s): I10 - Essential (primary) hypertension Status: Chronic (5) Hypertension: Qualifiers: Hypertension type: primary hypertension Qualified Code(s): I10 - Essential (primary) hypertension Status: Chronic
[2024-12-20 18:33] VITALS: BMI 40.4
[2024-12-20 18:44] LABS: MEAN PLATELET VOLUME 7.7 fL (7.4-11.0); RED CELL DISTRIBUTION WIDTH 13.9 % (11.6-16.5)
[2024-12-20 18:56] LABS: COR NA(FOR HYPERGLY) 143 mmol/L (136-145); CREATININE 1.09 mg/dL (0.70-1.30); eGFR NON BLACK RACES > 60 (>60)
[2024-12-20] MEDS: NS 1,000 ML IV 1,000 ML IV SCH (19:07)
[2024-12-20] MEDS: DILAUDID INJ IVP PRN (19:07)
[2024-12-20] MEDS: ZOFRAN INJ 4 MG VIAL IVP PRN (19:07)
[2024-12-20] MEDS: BENTYL I.M. INJ 10 MG IM ONE (20:17)
[2024-12-20] MEDS: PROTONIX INJ 40 MG VIAL IVP SCH (20:17)
[2024-12-21 05:03] LABS: MEAN PLATELET VOLUME 7.7 fL (7.4-11.0); RED CELL DISTRIBUTION WIDTH 14.0 % (11.6-16.5)
[2024-12-21 05:20] LABS: COR CA(FOR HYPOALB) 8.7 mg/dL (8.5-10.1); COR NA(FOR HYPERGLY) 144 mmol/L (136-145); CREATININE 1.13 mg/dL (0.70-1.30); eGFR NON BLACK RACES > 60 (>60)
[2024-12-21] MEDS ORDERED: CONSULT PHARMACY - POTASSIUM & MAGNESIUM XX SCH (07:00)
[2024-12-21] MEDS: COZAAR PO SCH (08:20)
[2024-12-21] MEDS: K-DUR TAB 20 MEQ PO SCH (08:20)
--- NOTE | 2024-12-21 08:28 | RAD ---
EXAM: ACUTE ABDOMEN SERI ES HISTORY: abd pain, hx of bowel obstruction; abd pain, hx of bowel obstruction COMPARISON: 10/12/2024 TECHNIQUE: One view of the chest and three views of the abdomen obtained. FINDINGS: Abdomen films are underpenetrated. The heart size is normal. The lungs are clear. No pneumothorax. Hilar and mediastinal structures and bony structures are unremarkable and unchanged. Tortuous aorta. Multiple gas-filled loops of small and large bowel are noted. Nonobstructive bowel gas pattern. No air-fluid levels. No gross free air. Findings suggest ileus. Follow-up recommended to exclude developing SBO. No abnormal calcifications in the distribution of the kidneys or ureters. Bony structures unchanged. Prominent liver shadow may represent hepatomegaly. Correlate clinically. IMPRESSION: Nonobstructive bowel gas pattern. Underpenetrated film. Findings suggest ileus. Follow-up recommended to exclude developing SBO. THIS IS AN ELECTRONICALLY VERIFIED FINAL REPORT 12/21/2024 8:25 AM - Electronically signed by López Ortiz MD
[2024-12-21] MEDS: LOVENOX INJ 40 MG SYR SC SCH (08:58)
[2024-12-21] MEDS: FLOMAX PO PRN (09:11)
[2024-12-21 09:57] LABS: INR 0.99 (0.8-1.3)
[2024-12-21 11:06] LABS: BLOOD/HEMOGLOBIN,URINE NEGATIVE (NEGATIVE); LEUKOCYTE ESTERASE ,URINE NEGATIVE (NEGATIVE); NITRITES,URINE NEGATIVE (NEGATIVE)
[2024-12-21 11:09] LABS: APPEARANCE,URINE CLEAR (CLEAR)
[2024-12-21 11:15] LABS: SQUAMOUS EPITHELIAL CELL,UR RARE /HPF (NEGATIVE)
[2024-12-21] MEDS: MAALOX or MYLANTA PO PRN (12:19)
[2024-12-22 05:58] LABS: MEAN PLATELET VOLUME 7.4 fL (7.4-11.0); RED CELL DISTRIBUTION WIDTH 13.7 % (11.6-16.5)
[2024-12-22 06:06] LABS: COR CA(FOR HYPOALB) 8.7 mg/dL (8.5-10.1); CREATININE 0.99 mg/dL (0.70-1.30); eGFR NON BLACK RACES > 60 (>60)
--- NOTE | 2024-12-22 07:10 | RAD ---
EXAM: KUB HISTORY: ABDOMINAL PAIN; COMPARISON: 09/03/2024 FINDINGS: Evalu ation of the abdomen demonstrates a nonspecific but nonobstructive bowel gas pattern with the distal colonic gas noted to be present. No pathological soft tissue mass or calcification can be observed. The bony structures are grossly intact. IMPRESSION: Nonspecific bowel gas pattern as above. THIS IS AN ELECTRONICALLY VERIFIED FINAL REPORT 12/22/2024 7:07 AM - Electronically signed by Shin Brock MD
[2024-12-22] MEDS ORDERED: CONSULT PHARMACY - POTASSIUM & MAGNESIUM XX SCH (08:00)
[2024-12-22] MEDS: BENTYL I.M. INJ 10 MG IM ONE (09:42)
[2024-12-22] MEDS: ZOFRAN INJ 4 MG VIAL IVP ONE (09:43)
[2024-12-22] MEDS: NS + KCL 20 MEQ/L 1,000 ML IV SCH (09:44)
[2024-12-22] MEDS: KLOR-CON PO SCH (09:44)
[2024-12-22] MEDS: ZITHROMAX INJ 500 MG VIAL 500 MG in NS 250 ML IV 250 ML IV ONE (10:03)
--- NOTE | 2024-12-22 11:24 | RAD ---
EXAM: ACUTE ABDOMEN SERI ES HISTORY: ABD PAIN, HX OF BOWEL OBSTRUCTION; COMPARISON: 12/20/[address] dated 10/13/2024 TECHNIQUE: AP chest; AP abdomen, supine and upright FINDINGS: Unremarkable cardiac silhouette. No focal consolidation, pleural effusion, or visible pneumothorax. No abnormally distended bowel loops. Mild colonic stool burden. No free peritoneal air. No abnormal calcifications. IMPRESSION: Nonobstructive bowel gas pattern. No free peritoneal air. THIS IS AN ELECTRONICALLY VERIFIED FINAL REPORT 12/22/2024 11:21 AM - Electronically signed by Drew Machado MD
[2024-12-22 13:27] VITALS: O2SAT 93
[2024-12-22 14:24] VITALS: RESP 18
[2024-12-22] MEDS: TORADOL 30 MG VIAL IVP ONE (16:17)
[2024-12-22 17:33] VITALS: BP 135/80; PULSE 68; TEMP 97.8
== END 2024-12-22 17:05 | disposition home or self-care (01) ==
LOC: ICU
PROVIDERS: ADMIT Internal Medicine; ATTEND Internal Medicine
DX: K21.9 Gastro-esophageal reflux disease without esophagitis; M51.369 Other intervertebral disc degeneration, lumbar region without mention of lumbar back pain or lower extremity pain; K76.0 Fatty (change of) liver, not elsewhere classified; E83.51 Hypocalcemia; I10 Essential (primary) hypertension; E11.65 Type 2 diabetes mellitus with hyperglycemia; R11.10 Vomiting, unspecified; F41.8 Other specified anxiety disorders; R79.89 Other specified abnormal findings of blood chemistry; D72.828 Other elevated white blood cell count; Z79.899 Other long term (current) drug therapy; R10.84 Generalized abdominal pain; K56.699 Other intestinal obstruction unspecified as to partial versus complete obstruction; M19.90 Unspecified osteoarthritis, unspecified site; E80.6 Other disorders of bilirubin metabolism; Z59.868 Other specified financial insecurity; E87.6 Hypokalemia